=== PATIENT | female | born 1955 | race Caucasian/White ===

== ENCOUNTER → 2017-12-29 12:55 | Outpatient (CLI) | payer OTHER, SELFPAY ==
[2017-11-16 06:51] VITALS: BMI 25.0
--- NOTE | 2017-12-29 12:56 | HPBI_ITS ---
MAMMOGRAPHY - BILATERAL SCREENING REASON FOR EXAM: Female, 62 years old. Routine annual screening examination. PERTINENT HISTORY: Grandmother with breast cancer. Remote left stereotactic breast biopsy. TECHNIQUE: Digital bilateral breast ankur (3D mammographic acquisition) in the CC and MLO projections. 2-D mediolateral oblique (MLO) and craniocaudad (CC) views of both breasts were obtained. CAD: Full Field Digital Mammography with Computer Added Detection was performed. COMPARISON: Comparison is made with prior study dated October 07, 2016 and July 29, 2015. FINDINGS: Breast Composition: The breasts are heterogeneously dense, which may obscure small masses. There are no dominant masses or suspicious calcifications. A tissue clip marker from prior stereotactic biopsy is seen in the upper deep lateral portion of the left breast. No other significant abnormalities are identified. There has been no significant change since the prior study. HPBI/SCREENING MAMM (CAD), BILAT IMPRESSION: Stable bilateral screening mammogram. Yearly follow-up mammogram recommended. (A) ASSESSMENT CATEGORY: BIRADS Category 2: Benign. A letter regarding these results will be sent to the patient by the facility within 30 days. Approximately 10% of breast cancers are not detected by mammography. A normal mammogram should not delay biopsy of a clinically suspicious abnormality. [id number] Electronically Signed: Rafal Dos Santos MD at 15:24 EST Tel [phone], Service support ,
== END ==
PROVIDERS: Family Provider Family Medicine; PCP Family Medicine; Visit Provider Family Medicine
DX: Z12.31 Encounter for screening mammogram for malignant neoplasm of breast (principal); Z80.3 Family history of malignant neoplasm of breast
CPT/HCPCS: 77063; 77067

== ENCOUNTER → 2018-03-07 18:54 | Outpatient (CLI) | payer OTHER, SELFPAY | PROVIDERS: Family Provider Family Medicine; PCP Family Medicine; Visit Provider Obstetrics & Gynecology | DX: Z12.4 Encounter for screening for malignant neoplasm of cervix (principal) | CPT/HCPCS: 88175; G0145 ==

== ENCOUNTER 2018-07-07 05:38 | Day surgery (SDC) | payer OTHER, SELFPAY ==
[2018-07-07] VITALS (7 sets, daily range): BP systolic 100–140; BP diastolic 63–122; PULSE 53–59; RESP 14–16; TEMP 36.7–36.8; O2SAT 92–100; BMI 21.6
--- NOTE | 2018-07-07 06:00 | PCM.HP.STD ---
Problem List (1) Screening for intestinal cancer Status: Acute History of Present Illness Date of Admission: 07/07/18 The patient is a 62 year old F who presents for a screening colonoscopy. I the opportunity to see her in the office on March 14, 2018. She enjoys a very healthy lifestyle. She placed tenderness avidly. That appointment was discussed a screening colonoscopy. She does have symptomatic hemorrhoids. She also is in need of a hysterectomy by Dr. Patricia Blackman. There was some thoughts about possibly combining those procedures. The patient otherwise has had a very healthy summer. Her hemorrhoids remain consistent. She denies any acute medical problems. Past Medical History Past Medical History (Chronic Problems): Chronic Problems (Last Reviewed 03/07/18 @ 14:26 by Diana Baugh) Hemorrhoid (Chronic) consult with dr obrien for possible removal Cystocele (Chronic) plan tvh bs cystoscopy anterior repair mccalls culdoplasty in august Medical History: Medical History (Last Reviewed 03/07/18 @ 14:26 by Diana Baugh) Screening for intestinal cancer (Acute) Z12.10 Allergies No Known Allergies Allergy (Verified 03/14/18 15:06) Home Medications: Ambulatory Orders Medication Instructions Recorded ascorbic acid (vitamin C) 500 mg 500 mg PO QDAY 03/07/18 chewable tablet cholecalciferol (vitamin D3) 2,000 2,000 unit PO QDAY 03/07/18 unit capsule Surgical History: Surgical History (This Medical Record has been edited. Action required.) S/P bunionectomy Z98.890 bilateral stereotactic biopsy left breast Smoking Status: Never smoker Review of Systems Constitutional: Denies: Anorexia Eyes: Denies: Blurred vision Cardiovascular: Denies: Chest Pain Respiratory: Denies: Cough Gastrointestinal: Denies: Abdominal Pain Endocrine: Denies: Change in Body Habitus VTE Information - Inpt Only VTE Present on Admission: No - Physical Exam General: Alert, Oriented x3, Cooperative, No apparent distress HEENT: Atraumatic Oral: Moist Mucosa Neck: Supple Lungs: Clear to auscultation Cardiovascular: Regular rate, Regular Rhythm Abdomen: Bowel Sounds Present, Soft, Non Tender Extremities: No Calf Tenderness Skin: No rashes Psych/Mental Status: Normal Affect Assessment/Plan All Active Problems (Last Reviewed 03/07/18 @ 14:26 by Diana Baugh) Screening for intestinal cancer (Acute) Pharyngitis (Acute) I am proposing for the patient a screening colonoscopy. She denies personal or family history of colon cancer. Approximately 1 year ago cold guard test was negative. She has never had a previous colonoscopy. We will proceed with colonoscopy with possible biopsy or polypectomy is indicated. She is aware of the technique, benefits, risks, alternatives. No guarantees of success have been offered. The patient may then elect future treatment of her hemorrhoids. It is anticipated she will also be a future candidate for hysterectomy. Combining those 2 procedures simultaneously may be more surgery than what she may actually will tolerate. She is not considering any intervention until early 2019. Russell Obrien M.D., F.A.C.S.
--- NOTE | 2018-07-07 06:30 | COLBX_PTH ---
PATIENT: HERMILO HE LOC: EN U#:[id number] AGE/SX: 62/F ROOM: RE07/07/[address]: Dr. Russell Najera MD : [id number] BED: DIS: 07/07/2018 SPEC #: [id number] RECD: 07/07/18 12:23 STATUS: DENIS LAURA #: [id number] JOHN: 07/07/18 06:[address]: Russell Najera DEPT: SURGICAL PATHOLOGY RECD BY: Tyshawn Jimenez ENTERED: 07/07/18 14:03 SP TYPE: COLON BX OTHR DR: Dr. Kerry Francois, DO Tissues: SPLENIC FLEXURE Procedures: Surgery Specimen Level IV HEADER OPERATION: Colonoscopy PRE-OP DIAGNOSIS: Screening TISSUE SUBMITTED: Cold snare polypectomy of polyp splenic flexure MICROSCOPIC DIAGNOSIS Colonic polyp at splenic flexure, biopsy: Fragments of tubular adenoma. AM:darnell 07/10/18 MICROSCOPIC DESCRIPTION Slides are reviewed. GROSS DESCRIPTION Received in fixative is one container labeled with the patient's name and designated biopsy polyp splenic flexure. The specimen consists of a piece of brown-pink soft tissue measuring 0.5 x 0.3 x 0.1 cm. Also present in the container is one piece of brown soft tissue measuring 0.1 cm in greatest dimension. The entire specimen is submitted in one cassette. / SJ:rg 07/07/18 TC:5 CPT: 71805
--- NOTE | 2018-07-07 06:52 | PCM.OPRPT ---
Problem List (1) Screening for intestinal cancer Status: Acute Report of Operation Date of Procedure: 07/07/18 Pre-Operative Diagnosis: Screening for intestinal cancer Post-Operative Diagnosis: Sessile polyp of the splenic flexure. Sigmoid diverticulosis. Grade 2-3 internal hemorrhoids Surgery/Procedure Performed:: Colonoscopy with cold forcep and cold snare biopsy and polypectomy Description of Surgical Findings:: Timeout and informed consent was obtained. 62-year-old female was taken to the endoscopy suite. She was placed in a left lateral decubitus position. Throughout the procedure he received a total 100 mg Demerol and 5 mg of Versed is intravenous sedation. Digital rectal exam performed. Moderate 2-3 grade internal hemorrhoids noted. No mass lesions. No active bleeding. A much lesser degree of an external component of the hemorrhoids. Flexible colonoscope inserted the rectum advanced through a very long lax tortuous sigmoid colon and tortuous colon. The entire procedure was tedious due to the laxity of the bowel length of the bowel and tortuosity. The scope was gradually advanced to the hepatic flexure and then with transabdominal pressure was advanced to the cecum. Bowel prep was good. The cecum ileocecal valve area was achieved. The scope was carefully withdrawn from the ascending colon transverse colon. At the hepatic flexure and sessile 8 mm diameter polyp was identified. I initially tried to sample it with cold forceps but could not get the right view. I then was able to use a cold snare and resect and retrieve the polyp. Hemostasis was intact. The scope was further withdrawn through the tortuous sigmoid colon notable for diverticulosis but no evidence of acute inflammation. The scope was withdrawn to the rectum retroflexed and the internal hemorrhoidal changes noted but no active bleeding. Excess fluid and air was aspirated free the procedure was completed she tolerated it well. Impression Sessile polyp in the splenic flexure Sigmoid diverticulosis Grade 2-3 internal hemorrhoids The patient has never had a previous colonoscopy. Next colonoscopy approximately 3 years pending pathology. The patient may desire to have treatment of her hemorrhoids in the future. Consideration would be for either a PPH hemorrhoidal pexy versus a surgical hemorrhoidectomy. Majority of her hemorrhoids are internal. Cc: Dr. Francois The procedure was initiated at 0624. The cecum was reached at 0636. The procedure was completed at 0649. Russell Najera M.D., F.A.C.S. Type of Anesthesia:: IV Sedation
== END 2018-07-07 07:55 | disposition home or self-care (01) ==
LOC: EN 05:39 → AC 05:40
PROVIDERS: Family Provider Family Medicine; PCP Family Medicine; Visit Provider Surgery
PROC: 0DJD8ZZ Inspection of Lower Intestinal Tract, Via Natural or Artificial Opening Endoscopic (ICD-10-PCS; CPT 45378; principal; 2018-07-07 06:25)
DX: Z12.11 Encounter for screening for malignant neoplasm of colon (principal); D12.3 Benign neoplasm of transverse colon; K57.30 Diverticulosis of large intestine without perforation or abscess without bleeding; K64.4 Residual hemorrhoidal skin tags; K64.8 Other hemorrhoids; N81.10 Cystocele, unspecified; J02.9 Acute pharyngitis, unspecified
CPT/HCPCS: 45385; 88305; 99152; 99153; J7120

== ENCOUNTER → 2018-09-25 09:37 | Outpatient (CLI) | payer OTHER, SELFPAY | PROVIDERS: Family Provider Family Medicine; PCP Family Medicine; Referring Provider Obstetrics & Gynecology; Visit Provider Obstetrics & Gynecology | DX: R30.0 Dysuria (principal) | CPT/HCPCS: 87086; 87088 ==

== ENCOUNTER → 2018-10-13 09:11 | Outpatient (CLI) | payer OTHER, SELFPAY ==
[2018-07-07 06:04] VITALS: BMI 21.6
[2018-10-13 09:41] LABS: Color, Urine Yellow (Yellow); Glucose, Dipstick Normal (Normal); Ketone-Dipstick Negative (Negative); Leukocyte Esterase-Dipstick 25 /ul (Negative); Nitrite-Dipstick Negative (Negative); Occult Blood-Urine Negative /ul (Negative); Protein-Dipstick Negative (Negative); Specific Gravity, Urine 1.005 (1.002-1.030); Urine Bilirubin Dipstick Negative (Negative); Urine Clarity Clear (Clear); Urine Urobilinogen Normal (Normal)
== END ==
PROVIDERS: Family Provider Family Medicine; PCP Family Medicine; Referring Provider Nurse Practitioner Women's Health; Visit Provider Nurse Practitioner Women's Health
DX: R30.0 Dysuria (principal)
CPT/HCPCS: 81002; 87086

== ENCOUNTER → 2019-01-09 14:20 | Outpatient (CLI) | payer OTHER, SELFPAY ==
[2018-07-07 06:04] VITALS: BMI 21.6
--- NOTE | 2019-01-09 14:22 | BI_ITS ---
MAMMOGRAPHY - BILATERAL SCREENING REASON FOR EXAM: Female, 63 years old. Routine annual screening examination. PERTINENT HISTORY: Grandmother with breast cancer. Prior left stereotactic breast biopsy. TECHNIQUE: Digital bilateral breast ankur (3D mammographic acquisition) in the CC and MLO projections. 2-D mediolateral oblique (MLO) and craniocaudad (CC) views of both breasts were obtained. CAD: Full Field Digital Mammography with Computer Added Detection was performed. COMPARISON: Comparison is made with prior study dated December 29, 2017 and October 07, 2016. FINDINGS: Breast Composition: The breasts are heterogeneously dense, which may obscure small masses. There are no dominant masses or suspicious calcifications. A tissue clip marker is once again seen in the deep upper lateral aspect of the left breast. No other significant abnormalities are identified. There has been no significant change since the prior study. BI/SCREENING MAMM (CAD), BILAT IMPRESSION: Stable bilateral screening mammogram. Yearly follow-up mammogram recommended. (A) ASSESSMENT CATEGORY: BIRADS Category 1: Negative. A letter regarding these results will be sent to the patient by the facility within 30 days. Approximately 10% of breast cancers are not detected by mammography. A normal mammogram should not delay biopsy of a clinically suspicious abnormality. [id number] Electronically Signed: Rafal Dos Santos MD at 15:35 EST , Service support ,
== END ==
PROVIDERS: Family Provider Family Medicine; PCP Family Medicine; Referring Provider Family Medicine; Visit Provider Family Medicine
DX: Z12.31 Encounter for screening mammogram for malignant neoplasm of breast (principal)
CPT/HCPCS: 77063; 77067

== ENCOUNTER → 2019-08-23 10:23 | Outpatient (CLI) | payer OTHER, SELFPAY ==
[2019-02-13 13:15] VITALS: BMI 21.6
--- NOTE | 2019-08-23 10:35 | RAD_ITS ---
STUDY: X-RAY - RIGHT SHOULDER REASON FOR EXAM: Female, 64 years old. Shoulder pain TECHNIQUE: 4 view(s) of the shoulder. COMPARISON: None. FINDINGS: Normal glenohumeral articulation. Normal acromioclavicular joint. Normal acromion. Normal humeral head and visualized proximal humerus. The soft tissue structures are unremarkable. Normal visualized pulmonary apex. RAD/Shoulder min 2 Views IMPRESSION: Normal x-ray examination of the shoulder. Electronically Signed: Rush Urbina MD at 17:01 EDT , Service support ,
== END ==
PROVIDERS: Family Provider Family Medicine; PCP Family Medicine; Referring Provider Family Medicine; Visit Provider Family Medicine
DX: M25.511 Pain in right shoulder (principal)
CPT/HCPCS: 73030

== ENCOUNTER 2019-10-02 15:49 | Outpatient (RCR) | payer OTHER, SELFPAY ==
[2019-08-24 13:50] VITALS: BMI 21.6
--- NOTE | 2019-11-22 11:25 | HP.PTEVAL ---
Patient's Visit Information HERMILO HE is a 64 year old F referred to Physical Therapy by Kerry Francois DO with a diagnosis of R shoulder Pain. Date of Evaluation: 10/02/19 Physical Therapist: Isa Dominique DPT - Visit Plan Plan: 10/02/19 Pt. perform HEP I & return if issues. HEP: scapular retractions, B ER, SL ER, Serratus Presses, Mid-Row - Subjective Findings: R shoulder pain - stopped playing tennis for 4 weeks, returned to tennis and after returning to play first session had pain following. Pain begain 4/5 weeks ago, originally felt sore & she slept on it wrong. Hurts with overhead motion or behind the head. Describes pain as radiating. Pain stays around the deltoind but will radiate down to upper arm at times. Worst: 2/10 Aggravting: Getting dress, blowdrying hair, carrying heavy items, OH motions. Best: 0/10 Eases: resting, keeping arm not OH. Misael disruption of sleep (can't sleep on R side). 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 Typical Activities: Tennis, Walking, Ellipitical, Lifting (UE/LE). Exercise: Extensive home gym in basement, lifting 3x/week prior to innjury, cardio everyday. Plays tennis 1x/week 2 hours - high level competition, doubles. PMH/MEds: no significant concerns. R hand dominant. 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 Gait: No deviations noted, good arm swing & trunk rot. Finger Dexterity: WNL. ROM: Wrist/ELbow WNL, Shoulder WNL (pain at end-range abd.). Strength: Eyelet Cutter: Equal, Elbow: 5/5, Shoulder 4/5 (slight pain w/ flex and 90 degree ER) Scap: fair minus. Special Tests: Shoulder Instability & Relocation (positive), ER Lag (positive), Yergasons (-), Rapp-Gavin (-), Speeds (positive), Biceps Load (positive), Empty/Full Can (-) - Goals Goal 1:: Pt. will be I w/ HEP & progression Goal Time Frame: 4-6 Weeks - Rehabilitation Potential Physical Therapy Diagnosis: Presents w/ hypomobility, UE/scap weakness, and pain which leads to difficulty performing ADLs. Rehabilitation Potential: Good - Anticipated Interventions Thank you for the opportunity to evaluate your patient. For Medicare and Medicare HMO plans, please review the plan of care and approve it. It will need to be FAXED BACK to us at [phone] for Medicare purposes. For Medicare only, by signing this I certify the plan of care. Please let me know if there are questions or concerns regarding this plan of care. Physician Signature: Date:
--- NOTE | 2020-04-08 11:52 | HP.PT.NRP ---
HERMILO HE was seen in my office for initial evaluation on 10/02/19. The following Plan of Care was established for this patient: This patient was last seen in our office . Pertinent comments regarding their Physical therapy will appear below: Patient has not attended PT for over 8 weeks- appropriate to be d/c at this time and follow up with MD as needed. At this point I will be discontinuing this patient from physical therapy. I would be happy to see this patient again in the future if found appropriate by the physician. Thank you! Isa Dominique, RAKANT
== END 2019-10-02 19:00 | disposition home or self-care (01) ==
LOC: PT 15:49
PROVIDERS: Family Provider Family Medicine; PCP Family Medicine; Referring Provider Family Medicine; Visit Provider Family Medicine
DX: M25.511 Pain in right shoulder (principal)
CPT/HCPCS: 97110; 97161

== ENCOUNTER → 2020-02-05 13:16 | Outpatient (CLI) | payer OTHER, SELFPAY ==
[2019-08-24 13:50] VITALS: BMI 21.6
--- NOTE | 2020-02-05 13:19 | BI_ITS ---
MAMMOGRAPHY - BILATERAL SCREENING REASON FOR EXAM: Female, 64 years old. Routine annual screening examination. PERTINENT HISTORY: Grandmother with breast cancer. Remote left stereotactic breast biopsy. TECHNIQUE: Digital bilateral breast arti (3D mammographic acquisition) in the CC and MLO projections. 2-D mediolateral oblique (MLO) and craniocaudad (CC) views of both breasts were obtained. CAD: Full Field Digital Mammography with Computer Added Detection was performed. COMPARISON: Comparison is made with prior study dated January 09, 2019 and December 29, 2017. FINDINGS: Breast Composition: The breasts are heterogeneously dense, which may obscure small masses. There are no dominant masses or suspicious calcifications. A tissue clip marker from prior stereotactic breast biopsy is once again seen in the deep upper lateral aspect of the left breast. No other significant abnormalities are identified. There has been no significant change since the prior study. BI/SCREEN MAMM (CAD) W/ARTI BILAT IMPRESSION: Stable bilateral screening mammogram. Yearly follow-up mammogram recommended. (A) ASSESSMENT CATEGORY: BIRADS Category 2: Benign. A letter regarding these results will be sent to the patient by the facility within 30 days. Approximately 10% of breast cancers are not detected by mammography. A normal mammogram should not delay biopsy of a clinically suspicious abnormality. [id number] Electronically Signed: Rafal Dos Santos, at 14:07 EDT , Service support ,
== END ==
PROVIDERS: Family Provider Family Medicine; PCP Family Medicine; Referring Provider Family Medicine; Visit Provider Family Medicine
DX: Z12.31 Encounter for screening mammogram for malignant neoplasm of breast (principal)
CPT/HCPCS: 77063; 77067

== ENCOUNTER → 2020-04-10 06:20 | Outpatient (CLI) | payer OTHER, SELFPAY ==
[2019-08-24 13:50] VITALS: BMI 21.6
[2020-04-10 08:32] LABS: Vitamin D,25 Hydroxy 33.6 ng/mL
--- NOTE | 2020-04-10 09:25 | BD_ITS ---
STUDY: DUAL ENERGY X-RAY ABSORPTIOMETRY / DXA REASON FOR EXAM: Female, 64 years old. Age of carlo 50. Pat is 143.5 and 64.75 and quot; a loss of 1-1.5 and quot; per pat. Exercises a lot. TECHNIQUE: Bone Mineral Density (BMD) measurements of lumbar spine and bilateral hips were obtained. COMPARISON: Comparison is made with prior examination dated July 29, 2015. FINDINGS: Lumbar Spine (L1-L4): g/cm2 (1.138) / T-score (-0.3) / Z-score (1.2) Findings are suggestive of normal bone density with a low fracture risk. Left Femur Total: g/cm2 (1.023) / T-score (0.1) / Z-score (1.3) Left Femoral Neck: g/cm2 (0.954) / T-score (-0.6) / Z-score (0.9) Right Femur Total: g/cm2 (0.996) / T-score (-0.1) / Z-score (1.1) Right Femoral Neck: g/cm2 (0.914) / T-score (-0.9) / Z-score (0.6) The T-Scores on the most recent prior examination were: Lumbar Spine (L1-L4): There has been worsening of bone density since the previous examination. Left Femur Total: which represents a worsening of 6.3%. Right Femur Total: which represents a worsening of 8.3%. BD/Dexa Bone Density Study IMPRESSION: The patient is considered normal as outlined below according to World [employer] Organization (WHO) criteria with a low fracture risk. There has been worsening of bone density since the previous examination. Reference Information: The T-score is the number of standard deviations above or below the standard which is normal for young adults at their peak bone mineral density. The World Health Organization (WHO) interprets the T-scores as follows: Above -1 Normal bone density Between -1 and -2.5 Osteopenia Equal to / or below -2.5 Osteoporosis As a practical clinical guideline, osteopenia may be graded as follows: Mild -1 through -1.5 Moderate -1.6 through -2.0 Severe -2.1 through -2.4 The Z-score is the number of standard deviations above or below age-matched controls. A Z-score of less than -1.5 would be considered abnormal. References: 1. NIH Osteoporosis and Related Bone Diseases http://www.osteo.org 2. International Society for Clinical Densitometry http://www.iscd.org 3. National Osteoporosis Foundation http://www.nof.org Electronically Signed: Rafal Dos Santos, at 10:12 EDT , Service support ,
== END ==
PROVIDERS: PCP Internal Medicine; Referring Provider Internal Medicine; Visit Provider Internal Medicine
DX: Z78.0 Asymptomatic menopausal state (principal); E55.9 Vitamin D deficiency, unspecified
CPT/HCPCS: 36415; 77080; 82306

== ENCOUNTER 2020-09-09 05:23 | Day surgery (SDC) | payer OTHER, SELFPAY ==
[2020-04-22 13:45] VITALS: BMI 21.6
[2020-08-26 13:03] VITALS: BMI 21.6
--- NOTE | 2020-09-03 07:13 | EKG12_ITS ---
Test Reason : PREOP Blood Pressure : / mmHG Vent. Rate : 057 BPM Atrial Rate : 057 BPM P-R Int : 166 ms QRS Dur : 082 ms QT Int : 412 ms P-R-T Axes : 042 049 033 degrees QTc Int : 401 ms Sinus bradycardia Otherwise normal ECG Confirmed by LAUREN SEVERINO, PAPITO ([id number]), online editor LATASHA BRITTON ([id number]) on 09/04/2020 10:08:46 AM Referred By: Patricia Blackman Confirmed By:PAPITO AGUILAR MD
[2020-09-03 12:32] LABS: Hematocrit 39.2 % (37-47); Mean Corp Hgb Conc 33.2 g/dL (32-36); Mean Corpuscular Hgb 30.9 pg (27.0-32.0); Mean Corpuscular Volume 93.1 fL (81-99); Mean Platelet Vol. 9.2 fl (6.2-12.0); Platelet Count 214 K/mm3 (150-450); RBC Distribution Width CV 12.9 % (11.6-14.6); RBC Distribution Width SD 43.9 fl (35.1-43.9); Red Blood Count 4.21 M/mm3 (4.2-5.4); White Blood Count 3.9 K/mm3 (4.4-11.0)
[2020-09-03 12:40] LABS: Partial Thromboplast Time 22.3 Seconds (24.1-36.2); Prothrombin Time (Protime)PT. 12.3 SECONDS (11.7-14.9)
[2020-09-03 12:54] LABS: AST(SGOT) 25 U/L (15-37); Alanine Aminotransfer ALT/SGPT 30 U/L (13-56); Albumin, Serum 4.1 g/dL (3.2-5.0); Alkaline Phosphatase 47 U/L (45-117); Bilirubin, Direct 0.13 mg/dL (0.00-0.30); Globulin 3.5 g/dL (2.2-4.2); Protein, Total 7.6 g/dL (6.4-8.2)
[2020-09-09] VITALS (12 sets, daily range): BP systolic 99–133; BP diastolic 61–85; PULSE 56–78; RESP 12–20; TEMP 36.4–36.9; O2SAT 92–98; BMI 24.0
[2020-09-09] MEDS: Acetaminophen 500 MG Tablet 1000 MG PO ×3 (06:24→17:54)
[2020-09-09] MEDS: Celecoxib 200 MG Capsule 400 MG PO (06:24)
[2020-09-09] MEDS: dexAMETHasone 10 MG/ML Vial 8 MG IV (06:25)
[2020-09-09] MEDS: Enoxaparin 40 MG/0.4 ML Syringe SC (06:25)
[2020-09-09] MEDS: Gabapentin 600 MG Tablet PO (06:36)
[2020-09-09] MEDS: Lactated Ringers 1,000 ML 40 ML IV (06:37)
--- NOTE | 2020-09-09 06:45 | HP.PCM_ITS ---
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 Required: No Is patient in pain?: No Allergies No Known Allergies Allergy (Verified 08/26/20 13:03) Medications cholecalciferol (vitamin D3) 50 mcg (2,000 unit) capsule 2,000 unit PO QDAY 03/07/18 [History Confirmed 08/26/20] Is last menstrual period known: No Post menopausal: Yes Patient : No : No [facility] Medical History Hemorrhoid (Chronic) Cystocele (Chronic) Surgical History History of colonoscopy (Acute ~2018) S/P bunionectomy (Resolved) stereotactic biopsy (Resolved) Family History Grandmother Breast cancer Mother Hypertension COPD (chronic obstructive pulmonary disease) Social History (Updated 08/26/20 @ 13:[address] 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 she is going to have a combo case with Dr diaz. Female Reproductive History Questions: Metorrhagia: No, Sexually active: Yes, Dyspareunia: No, PCB: No Menopausal Symptoms: No night sweats Pregancy History 2 Elective abortions Hx Para 2 Spontaneous abortions Hx # Term Pregnancies Ectopic pregnancies Hx # Pregnancies Multiple births # of living children Past Pregnancies Del. Date Name GA/Weeks Outcome Route Bth Weight [facility] Katie-[facility] Unknown Nida-1971 Unknown Unknown Delivery Date: No notes to display Delivery Date: No notes to display Delivery Date: No notes to display Delivery Date: On 03/07/18 @ 14:31 Diana Baugh Giacomo (step-daughter) ROS Const Constitutional: Denies fatigue, night sweats, weight gain or weight loss ENT ENT: Reports system reviewed and no additional complaints, except as docu Cardio Card: Denies chest pain Resp Resp: Denies cough or dyspnea GI GI: Reports as per HPI; denies abdominal pain, constipation, nausea or vomiting : Denies nipple discharge, urinary frequency, urinary incontinence, urinary hesitancy, urinary urgency, vaginal discharge, vaginal dryness, vaginal odor or vaginal itching Musc Musc: Denies joint pain, back pain or muscle weakness Skin Skin/Breast: Denies hair loss, change in hair, dry skin, breast lump, breast pain, breast skin changes or nipple discharge Neuro Neuro: Reports system reviewed and no additional complaints, except as docu Psych Psych: Reports system reviewed and no additional complaints, except as docu Endo Endo: Denies cold intolerance, excessive sweating, heat intolerance or increased thirst Edgar/Lymph Hematologic/Lymphatic: Denies easy bleeding, Denies easy bruising, Denies enlarged lymph nodes Exam Const General: cooperative, healthy appearing, comfortable, no acute distress, well de veloped Orientation: alert [facility] Head: normal to inspection, normocephalic Ears: hearing grossly normal bilaterally, external ears normal Nose: external nose normal, nares normal Face and sinus: normal facial exam Neck Neck: normal visual inspection, no lymphadenopathy Thyroid: thyroid normal Chest Chest palpation & inspection: normal inspection of the chest Resp Effort & Inspection: normal respiratory effort Auscultation: clear to auscultation bilaterally Cardio Rate: regular rate Rhythm: regular rhythm Heart Sounds: S1 normal, S2 normal GI Inspection: normal to inspection, non-distended Palpation: soft, no hepatosplenomegaly Musc Other: gross motor intact no deficits, full bilateral strength Skin General: no rashes or lesions noted Neuro General: alert, awake, moves all extremities, no focal motor deficits Motor: muscle tone normal throughout Extrem General: normal to inspection, no pedal edema Psych Appearance: grossly normal Mental Status: mental status grossly normal Affect: normal affect Speech and Movement: speech and movement normal Assessment & Plan Problems 1. Cystocele plan [facility] bso combo case with joe Salvador After discussing the patient's diagnosis and treatment plan options, patient wishes to proceed with surgical management. I have discussed with the patient the risks, benefits, and alternatives of the procedure which include but are not limited to risks of anesthesia, bleeding, infection, possible damage to bowel, bladder, or surrounding vasculature which could lead to additional surgery to evaluate any complications. Patient agrees to procedure and wishes to proceed. ACOG/uptodate references given for additional information regarding procedure. Coding Level of Care Code No Charge Diagnoses Cystocele UPDATE- I have seen the patient and performed any clinically relevant updates to the history and physical exam. Patricia Blackman MD
[2020-09-09] MEDS: Cefazolin 2 GM in 0.9% Normal Saline 100 ML IV (07:29)
--- NOTE | 2020-09-09 07:30 | OP.PCM_ITS ---
Problem List (1) Cystocele Status: Chronic Qualifiers: Comment: plan tvh bso combo case with joe (2) Hemorrhoid Status: Chronic Qualifiers: Comment: consult with dr obrien for possible removal Report of Operation Date of Procedure: 09/09/20 Pre-Operative Diagnosis: prolapse Post-Operative Diagnosis: same Surgery/Procedure Performed:: tvh bso Description of Surgical Findings:: nl uterus tubes ovaries curriculum and assessment coordinator: Beena Corral Type of Anesthesia:: General Special Medications: none Specimen's removed: uterus tubes ovaries Drains: none Estimated Blood Loss (mL): 150 Fluids Replaced: crystalloid Description of Procedure: Patient was taken to the operating room and was placed under general anesthesia was prepped and draped in normal sterile fashion in the dorsal lithotomy position. Preoperative antibiotics and SCDs and Keyes catheter was placed inside the bladder. Weighted speculum was placed in the vagina and the anterior and posterior lip of the cervix was grasped with 2 Rosemarie clamps and circumferentially injected with dilute vasopressin. A circumferential incision was made with a scalpel and the posterior cul-de-sac was entered into sharply and a longneck speculum was placed. The anterior cul-de-sac was also dissected down and entered into sharply and the uterosacral ligaments were clamped cut and suture ligated bilaterally followed by the cardinal ligaments which were Clamped cut and suture ligated bilaterally with 0 Monocryl. The uterus serially descended and progressive bites were taken bilaterally up to the level of the utero-ovarian ligament bilaterally which was clamped transected and double ligated with 0 Monocryl suture and 0 Vicryl free tie. Bilateral fallopian tubes and ovaries were well visualized and noted be within normal limits and the bilateral fallopian tubes and ovaries were then clamped, transected across the base of the IP ligament with a Evan clamp and removed and double ligated with 0 monocryl suture and an 0 vicryl free tie. There was some difficulty accessing the right pelvic side wall due to visualization but overall the majority if not all of the ovary was removed. addition sutures were place over the pelvic side constantino bilaterally to obtain hemostasis and after this Excellent hemostasis was noted. Posterior peritoneum and the vagina were closed with [id number] 0 Vicryl pop offs including the posterior and what anterior peritoneum was visible in the reapproximation. Excellent hemostasis was noted. All instruments removed from the vagina clear urine was noted at the end of the procedure and dr diaz began her portion of the procedure. Grafts/Implants Used: see joe note Multi Select Codes - Urinary/Genital Urinary/Genital CPT Codes: 89210 TVH+BS/O <250gr uterus
--- NOTE | 2020-09-09 07:30 | HYST_PTH ---
PATIENT: HERMILO HE LOC: [facility] [place] U#:[id number] AGE/SX: 65/F ROOM: RE09/09/[address]: Dr. Patricia Blackman MD : [id number] BED: DIS: 09/10/2020 SPEC #: [id number] RECD: 09/09/20 13:12 STATUS: DENIS REJarrod #: [id number] JOHN: 09/09/20 07:[address]: Patricia Blackman DEPT: SURGICAL PATHOLOGY RECD BY: Anil Farrell ENTERED: 09/10/20 07:05 SP TYPE: HYSTERECT OTHR DR: MD Dr. Dee Patino DO Tissues: Uterus, NOS Procedures: Surgery Specimen Level V HEADER OPERATION: ERAS, total vaginal hysterectomy, bilateral salpingo-oophorectomy PRE-OP DIAGNOSIS: Incomplete uterovaginal prolapse, postmenopausal atrophic vaginitis TISSUE SUBMITTED: Uterus, cervix, bilateral fallopian tubes and ovaries MICROSCOPIC DIAGNOSIS Uterus, cervix, bilateral fallopian tubes and ovaries, vaginal hysterectomy and bilateral salpingo-oophorectomy: Cervix - mild chronic inflammation. - Benign endocervical polyp (1 cm in greatest dimension). Endometrium - proliferative endometrium. Myometrium - focal adenomyosis. One fallopian tube - focal endometriosis. Second fallopian tube - no pathologic diagnosis. One ovary - benign simple serous cyst (1 cm in greatest dimension). - mesothelial inclusion cysts. Second ovary - mesothelial inclusion cysts. JOYCE:darnell 09/11/20 MICROSCOPIC DESCRIPTION Slides are reviewed. GROSS DESCRIPTION Received in fixative is one container labeled with the patient's name and designated uterus, cervix, bilateral fallopian tubes and bilateral ovaries. The specimen consists of a hysterectomy specimen consisting of uterus with cervix, detached fallopian tube and adjacent ovary and detached second fallopian tube and detached second ovary. The fallopian tubes and ovaries are not identified as right or left. The uterus with cervix weighs 56 gm and measures 8 x 4.5 x 3 cm. The serosal surface is focally ragged. The ectocervical mucosa is unremarkable. The external os is oval in contour. The endocervical canal measures 3 cm in length and the endocervical mucosa is shows a polyp measuring 1 x 0.5 x 0.1 cm at the level of internal os. The triangular endometrial cavity measures 3.5 cm in length and up to 1.5 cm in width. The endometrium is brown, glistening without any mass lesion and measures 0.1 cm in thickness. Sections of the uterine wall do not reveal any mass lesion and is 1.5 cm in thickness. One fallopian tube measures 4 cm in length and 0.5 cm in diameter. It is interrupted in the middle consistent with previous tubal occlusion. The distal fimbrial end is not seen. The adjacent ovary measures 2.5 x 1 x 0.5 cm. Sections reveal unremarkable cut surfaces. The detached second fallopian tube measures 2 cm in length and 0.6 cm in diameter. The fimbrial end is identified. Sections reveal unremarkable cut surfaces. The detached second ovary measures 3 x 1 x 1 cm. Sections reveal a cyst filled with clear fluid measuring 1?cm in greatest dimension. No papillations are identified. Occupational Health Rn sections are submitted in ten cassettes as follows: 1 - anterior cervix, endocervical polyp, entirely submitted, 2 - posterior cervix, 3 & 4 - anterior uterine wall, 5 & 6 - posterior uterine wall, 7 & 8 - one fallopian tube and adjacent ovary (7??one fallopian tube, 8 - ovary, entirely submitted), 9 - second detached fallopian tube, 10 - second detached ovary, entirely submitted. / JOYCE:darnell 09/10/20 TC:5 CPT: 51988
[2020-09-09 07:42] LABS: Bedside Glucose 96 mg/dL (70-110)
[2020-09-09] MEDS: Lactated Ringers 1,000 ML 70 ML IV ×2 (10:00→16:03)
[2020-09-09] MEDS: Estrogens,Conj. 1 Tube 1 DOSE (10:15)
--- NOTE | 2020-09-09 10:44 | OP.PCM_ITS ---
Problem List (1) Cystocele Status: Chronic Qualifiers: Comment: plan tvh bso combo case with jermainesteve (2) Uterovaginal prolapse Status: Acute Report of Operation Date of Procedure: 09/09/20 Pre-Operative Diagnosis: Uterovaginal prolapse, postmenopausal vaginal atrophy Post-Operative Diagnosis: Same Surgery/Procedure Performed:: Anterior repair, bilateral sacrospinous ligament fixation with dermis, cystoscopy Type of Anesthesia:: General Estimated Blood Loss (mL): 25cc Description of Procedure: The patient is a 65-year-old female who presented to the office with uterovaginal prolapse. After evaluation with cystoscopy and urodynamics, she decided to proceed with surgical intervention. Informed consent was obtained after discussing all risk benefits and alternatives including that of COVID-19. Patient was taken to the operating room and placed on the operating room table. Anesthesia monitored the head, neck, airway, IV access and vital signs throughout the case. Once anesthesia was appropriately administered, the patient was placed into dorsal lithotomy position and was prepped and draped in usual sterile fashion. The first portion of the case was then performed by Dr. Blackman. After closure of the vaginal cuff, the case was turned to mn. The patient had very thin vaginal mucosa. It was injected submucosally with vasopressin for hydrostatic dissection and hemostatic control. A midline vertical incision was then made approximately 2.5 cm in length. Sharp and blunt dissection was performed on either side until the sacrospinous ligaments were identified and freed from surrounding tissues. This was very difficult as the patient had significant amount of scar tissue in the area surrounding the sacrospinous ligaments bilaterally. Using the Capio, Monodek sutures were passed through the sacrospinous ligaments and through a trimmed piece of dermis. A full-thickness 2-0 Vicryl suture was used to tack the dermis in the midline. 2-0 Vicryl interrupted sutures were placed at the area of the bladder neck as well as the areas of the remaining pubocervical fascia laterally. The dermis lay flat against the bladder. The mucosa was then closed over in the midline using running interlocking 2-0 Vicryl. Because her mucosa was very thin, this was difficult as there were multiple areas of torn mucosa. At the conclusion of the closure of the midline incision, the sacrospinous ligament sutures were tied into position. The prolapse was completely reduced. A cystourethroscopy was performed through the urethra under direct visualization with the 70 degree lens. There were no injuries to the urinary bladder including foreign body or bruising. There were no mucosal abnormalities identified. There was a good ureteral jet observed from the left ureteral orifice. On the right side a 5 Japanese whistle-tip catheter was easily inserted into the urethra up to 25 cm. It was removed and there was no blood and no obstruction. At this time the Keyes catheter was replaced and the vagina was packed with Premarin cream and vaginal packing. The patient was awakened and taken to the recovery room in good condition. There were no complications during the procedure. Grafts/Implants Used: Dermis - Complications none - Admit VTE Documentation VTE Present on Admission: Yes VTE Mechan Device Prophylaxis: SCD's VTE Pharm Prophylaxis ordered?: Yes
[2020-09-09] MEDS: Ondansetron 4 MG/2 ML Vial IV (11:01)
[2020-09-09] MEDS: Ketorolac 30 MG/ML Syringe IV ×2 (13:00→17:55)
[2020-09-09 15:23] LABS: Absolute Lymphocyte Count 0.32 X10^3/uL (0.83-4.51); Absolute Neutrophil Count 9.9 X10^3/uL (2.0-7.7); Basophil# 0.01 X10^3/uL; Basophil% 0.1 % (0-1); Hematocrit 37.4 % (37-47); Lymphocyte # 0.32 X10^3/ul (4.0); Mean Corp Hgb Conc 32.1 g/dL (32-36); Mean Corpuscular Hgb 31.2 pg (27.0-32.0); Mean Corpuscular Volume 97.1 fL (81-99); Monocyte# 0.23 X10^3/uL; Monocyte% 2.2 % (0-10); NRBC Flagged by Analyzer 0 % (0-5); Neutrophil % 94.2 % (47-70); POSITIVE DIFFERENTIAL YES; Platelet Count 193 K/mm3 (150-450); RBC Distribution Width CV 12.8 % (11.6-14.6); RBC Distribution Width SD 45.1 fl (35.1-43.9); Red Blood Count 3.85 M/mm3 (4.2-5.4); White Blood Count 10.5 K/mm3 (4.4-11.0)
[2020-09-09] MEDS: Cephalexin 500 MG Capsule PO ×2 (16:03→22:12)
--- NOTE | 2020-09-09 16:36 | PCM.DC.VHY ---
Discharge Diet: No Restrictions Discharge Activity: Return to Normal Activity, May Not Drive, May Shower May resume sexual activity in: 6-8 weeks Call your doctor if your incision/area has: Continuous Slow Oozing, Sudden Increased Bleeding, Increased Pain/ Swelling, Increased Redness, Foul Smelling Discharge Call your doctor if you observe: Fever of 101 or Higher, Inability to urinate, Inability to have a bowel movement, Using more than one pad per hour Allergies/Adverse Reactions: Allergies No Known Allergies Allergy (Verified 08/26/20 13:03) Medications to take at Discharge cholecalciferol (vitamin D3) 50 mcg (2,000 unit) capsule 2,000 unit PO QDAY 03/07/18 Calcium Carbonate [Elemental Calcium] 600 mg PO DAILY 09/02/20 Naproxen [Naprosyn] 250 - 500 mg PO Q8H PRN PRN #30 tab 09/09/20 Oxycodone HCl/Acetaminophen [Percocet 5-325] 1 - 2 tab PO Q6H PRN PRN 7 Days #15 tab 09/09/20 The following prescriptions were given: Naproxen [Naprosyn] 250 - 500 mg PO Q8H PRN PRN #30 tab PRN Reason: MILD PAIN Transmission Status: Received by [facility] Oxycodone HCl/Acetaminophen [Percocet 5-325] 1 - 2 tab PO Q6H PRN PRN 7 Days #15 tab PRN Reason: Pain Transmission Status: Received by [facility] Primary Care Physician: Dee Alvarez DO [Primary Care Provider] - Test Results: Test results from this visit will be discussed in further detail at your follow-up appointment, if applicable. Please Follow Up With: Patricia Blackman MD - [phone]
[2020-09-09 16:45] LABS: Anisocytosis RARE; Macrocytosis RARE; Platelet Estimate ADEQUATE (ADEQ); Red Cell Morphology N CHROM NORMAL (NORM C&C)
[2020-09-09] MEDS: Docusate Sodium 100 MG Capsule PO (22:12)
[2020-09-10] MEDS: Ketorolac 30 MG/ML Syringe IV ×2 (00:52→06:09)
[2020-09-10] MEDS: Acetaminophen 500 MG Tablet 1000 MG PO ×2 (00:52→06:43)
[2020-09-10] MEDS: 0.9% Saline Lock 10 ML Syringe IV ×2 (00:53→06:09)
[2020-09-10 00:58] VITALS: BP 110/58; PULSE 63; RESP 16; TEMP 36.6; O2SAT 97
[2020-09-10 00:59] VITALS: BMI 24.0
[2020-09-10 04:15] VITALS: BP 101/55; PULSE 61; RESP 18; TEMP 36.9; O2SAT 97; BMI 24.0
[2020-09-10 05:56] LABS: Hematocrit 34.6 % (37-47); Hemoglobin 11.1 g/dL (12.0-15.0); Mean Corp Hgb Conc 32.1 g/dL (32-36); Mean Corpuscular Hgb 30.9 pg (27.0-32.0); Mean Corpuscular Volume 96.4 fL (81-99); Mean Platelet Vol. 9.1 fl (6.2-12.0); Platelet Count 199 K/mm3 (150-450); RBC Distribution Width CV 12.8 % (11.6-14.6); RBC Distribution Width SD 45.1 fl (35.1-43.9); Red Blood Count 3.59 M/mm3 (4.2-5.4); White Blood Count 8.4 K/mm3 (4.4-11.0)
[2020-09-10 06:42] VITALS: O2SAT 97
--- NOTE | 2020-09-10 07:26 | PCM.PN.OB ---
Patient Problems: Active and Suspected Problems (Last Reviewed 08/26/20 @ 13:03 by Diana Baugh) Uterovaginal prolapse (Acute) Subjective: patient recovering well, denies CP, SOB, N, or V. patient is ambulating, voiding ,tolerating adequate po, and pain is controlled with oral medications. - Physical Exam Vitals/I&O's: Vital Signs Temp Pulse Resp BP Pulse Ox 98.4 F 61 18 101/55 L 97 09/10/20 04:15 09/10/20 04:15 09/10/20 04:15 09/10/20 04:15 09/10/20 06:42 Oxygen Flow Rate (L/min) 6 Oxygen Delivery Method Room Air Weight: 144 lb 6.444 oz Body Mass Index (BMI) 24.0 Intake and Output for Last 24 Hours 09/08/20 09/09/20 09/10/20 23:59 23:59 23:59 Intake Total 2214 / 3014 1972.17 / 1972.17 Output Total 475 / 1025 1700 / 1700 Balance 173 / 1988 272.17 / 272.17 General: Alert, Oriented x3 Laboratory Results 09/09/20 06:00: POC Glucose 96 09/09/20 15:08: WBC 10.5, RBC 3.85 L, Hgb 12.0, Hct 37.4, MCV 97.1, MCH 31.2, MCHC 32.1, RDW Std Deviation 45.1 H, RDW Coeff of Juan Carlos 12.8, Plt Count 193, MPV 9.0, Immature Gran % (Auto) 0.500, Neut % (Auto) 94.2 H, Lymph % (Auto) 3.0 L, Union % (Auto) 2.2, Eos % (Auto) 0.0, Baso % (Auto) 0.1, Absolute Neuts (auto) 9.9 H, Absolute Lymphs (auto) 0.32 L, Nucleated RBC % 0, Differential Comment SEE COMMENT, Platelet Estimate ADEQUATE, RBC Morphology N CHROM, Anisocytosis RARE, Macrocytosis RARE 09/10/20 05:33: WBC 8.4, RBC 3.59 L, Hgb 11.1 L, Hct 34.6 L, MCV 96.4, MCH 30.9, MCHC 32.1, RDW Std Deviation 45.1 H, RDW Coeff of Juan Carlos 12.8, Plt Count 199, MPV 9.1 Current Medications Acetaminophen (Acetaminophen 500 Mg Tablet) 1,000 mg PO Q6H [facility] Last Admin: 09/10/20 06:43 Dose: 1,000 mg Documented by: Cephalexin (Cephalexin 500 Mg Capsule) 500 mg PO Q12 [facility] Last Admin: 09/09/20 22:12 Dose: 500 mg Documented by: Docusate Sodium (Docusate Sodium 100 Mg Capsule) 100 mg PO BID [facility] Last Admin: 09/09/20 22:12 Dose: 100 mg Documented by: Enoxaparin Sodium (Enoxaparin 40 Mg/0.4 Ml Syringe) 40 mg SC DAILY [facility] Sodium Chloride () 250 mls @ 15 mls/hr IV .[id number] PRN PRN Reason: Saline Flush Sodium Chloride () 250 mls @ 15 mls/hr IV .[id number] PRN PRN Reason: Additional IVPB Infusion Lactated Ringer's () 1,000 mls @ 70 mls/hr IV .[id number] [facility] Stop: 09/10/20 12:30 Last Infusion: 09/10/20 05:22 Dose: Infused Documented by: Ketorolac Tromethamine (Ketorolac 30 Mg/Ml Syringe) 30 mg IV Q6H [facility] Stop: 09/10/20 18:31 Last Admin: 09/10/20 06:09 Dose: 30 mg Documented by: Magnesium Chloride (Magnesium Chloride 64 Mg Delay Rel.Tablet) 128 mg PO DAILY PRN PRN PRN Reason: Constipation Nutritional Formula (Lactose Free) (Ensure Enlive 120 Ml Liquid) 120 ml PO TIDCM [facility] Ondansetron HCl (Ondansetron Odt 4 Mg Tablet) 4 mg PO Q6H PRN PRN PRN Reason: NAUSEA Oxycodone HCl (Oxycodone 5 Mg Tablet) 5 - 10 mg PO Q4H PRN PRN PRN Reason: Pain Score 4-10 Sodium Chloride (0.9% Saline Lock 10 Ml Syringe) 10 - 40 ml IV UD PRN PRN Reason: SALINE FLUSH Last Admin: 09/10/20 06:09 Dose: 10 ml Documented by: Medical Necessity - Tobacco Use Smoking Status: Never smoker Tobacco Use: Non-smoker Assessment/Plan All Active Problems (Last Reviewed 08/26/20 @ 13:03 by Diana Baugh) Uterovaginal prolapse (Acute) Staph skin infection (Acute) Pharyngitis (Acute) patient is s/p TVH pelvic floor repair POD 1 1. routine ERAS protocol postop care- increase ambulation, encourage oral intake and oral control of pain. lovenox and scds for dvt prophylaxis, patient stable for discharge to home.
[2020-09-10 08:12] VITALS: BMI 24.0
[2020-09-10 09:09] VITALS: BP 119/55; PULSE 54; RESP 18; TEMP 36.6; O2SAT 98
[2020-09-10] MEDS: Cephalexin 500 MG Capsule PO (09:53)
[2020-09-10] MEDS: Enoxaparin 40 MG/0.4 ML Syringe SC (09:53)
[2020-09-10] MEDS: Docusate Sodium 100 MG Capsule PO (09:53)
[2020-09-10 11:08] VITALS: BP 112/68; PULSE 58; RESP 18; TEMP 37.2; O2SAT 98
== END 2020-09-10 11:01 | disposition home or self-care (01) ==
LOC: SDC 05:23 → AC 05:24 → MS3 09-11 07:33
PROVIDERS: Anesthesiology; Urology; PCP Internal Medicine; Referring Provider Obstetrics & Gynecology; Visit Provider Obstetrics & Gynecology
PROC: (CPT 58260; principal; 2020-09-09 07:10)
PROC: (CPT 57260; 2020-09-09 07:10)
DX: N81.4 Uterovaginal prolapse, unspecified (principal); N95.2 Postmenopausal atrophic vaginitis; R39.14 Feeling of incomplete bladder emptying; Z20.818 Contact with and (suspected) exposure to other bacterial communicable diseases; N72 Inflammatory disease of cervix uteri; N84.1 Polyp of cervix uteri; N80.0 Endometriosis of uterus; N80.2 Endometriosis of fallopian tube; N83.299 Other ovarian cyst, unspecified side; N83.202 Unspecified ovarian cyst, left side; N83.201 Unspecified ovarian cyst, right side
CPT/HCPCS: 57240; 57282; 58262; 36415; 80076; 82962; 85025; 85027; 85610; 85730; 86850; 86900; 86901; 87635; 88307; 93005; 99251; C9803; J7120; A4216; C1758; G0463; J2405; U0003

== ENCOUNTER → 2021-01-23 07:49 | Outpatient (CLI) | payer OTHER, SELFPAY ==
[2020-09-23 15:30] VITALS: BMI 23.9
[2021-01-23 09:13] LABS: Absolute Lymphocyte Count 1.21 X10^3/uL (0.83-4.51); Absolute Neutrophil Count 3.7 X10^3/uL (2.0-7.7); Basophil# 0.03 X10^3/uL; Basophil% 0.6 % (0-1); Eosinophils% 1.9 % (0-5); Hematocrit 42.4 % (37-47); Hemoglobin 13.9 g/dL (12.0-15.0); Lymphocyte # 1.21 X10^3/ul (4.0); Lymphocyte % 22.7 % (19-41); Mean Corp Hgb Conc 32.8 g/dL (32-36); Mean Corpuscular Hgb 30.7 pg (27.0-32.0); Mean Corpuscular Volume 93.6 fL (81-99); Mean Platelet Vol. 9.5 fl (6.2-12.0); Monocyte# 0.31 X10^3/uL; Monocyte% 5.8 % (0-10); NRBC Flagged by Analyzer 0 % (0-5); Neutrophil # 3.67 X10^3/uL (2.7-7.7); Neutrophil % 68.8 % (47-70); Platelet Count 196 K/mm3 (150-450); RBC Distribution Width CV 13.1 % (11.6-14.6); RBC Distribution Width SD 44.7 fl (35.1-43.9); Red Blood Count 4.53 M/mm3 (4.2-5.4); White Blood Count 5.3 K/mm3 (4.4-11.0)
[2021-01-23 09:54] LABS: ALB/GLOB Ratio 1.2 RATIO (0.9-2.4); AST(SGOT) 29 U/L (15-37); Alanine Aminotransfer ALT/SGPT 31 U/L (13-56); Albumin, Serum 4.2 g/dL (3.2-5.0); Alkaline Phosphatase 53 U/L (45-117); Anion Gap 7 (5-15); BUN 17 mg/dL (7-18); BUN/Creat Ratio 20.8 RATIO (10-20); Chloride 106 mmol/L (98-107); Creatinine, Serum 0.82 mg/dL (0.55-1.02); EST Glomerular Filtration Rate 74 mL/min (>60); Est Glom Filt Rate - Afr Amer 90 mL/min (>60); Globulin 3.5 g/dL (2.2-4.2); Glucose 87 mg/dL (74-106); Magnesium 2.1 mg/dL (1.6-2.6); Potassium 4.2 mmol/L (3.5-5.1); Protein, Total 7.7 g/dL (6.4-8.2); Sodium Level 138 mmol/L (136-145); Thyroid Stim Hormone (TSH) 1.82 uIU/mL (0.358-3.74)
== END ==
PROVIDERS: PCP Internal Medicine; Referring Provider Internal Medicine; Visit Provider Internal Medicine
DX: M62.838 Other muscle spasm (principal)
CPT/HCPCS: 36415; 80053; 83735; 84443; 85025

== ENCOUNTER → 2021-02-24 08:05 | Outpatient (CLI) | payer OTHER, SELFPAY ==
[2020-09-23 15:30] VITALS: BMI 23.9
--- NOTE | 2021-02-24 08:07 | BI_ITS ---
MAMMOGRAPHY - BILATERAL SCREENING REASON FOR EXAM: Female, 65 years old. Routine annual screening examination. PERTINENT HISTORY: Grandmother with breast cancer. Remote left stereotactic breast biopsy. TECHNIQUE: Digital bilateral breast arti (3D mammographic acquisition) in the CC and MLO projections. 2-D mediolateral oblique (MLO) and craniocaudad (CC) views of both breasts were obtained. CAD: Full Field Digital Mammography with Computer Added Detection was performed. COMPARISON: Comparison is made with prior study dated 02/05/2020 and 01/09/2019. FINDINGS: Breast Composition: The breasts are heterogeneously dense, which may obscure small masses. There are no dominant masses or suspicious calcifications. A tissue clip marker from prior stereotactic breast biopsy is seen in the deep upper lateral aspect of the No other significant abnormalities are identified. There has been no significant change since the prior study. BI/SCRN MAMM (CAD)W/ARTI BILAT IMPRESSION: Stable bilateral screening mammogram. Yearly follow-up mammogram recommended. (A) ASSESSMENT CATEGORY: BIRADS Category 2: Benign. A letter regarding these results will be sent to the patient by the facility within 30 days. Approximately 10% of breast cancers are not detected by mammography. A normal mammogram should not delay biopsy of a clinically suspicious abnormality. [id number] Electronically Signed: Rafal Dos Santos MD at 8:39 EDT , Service support ,
== END ==
PROVIDERS: PCP Internal Medicine; Referring Provider Internal Medicine; Visit Provider Internal Medicine
DX: Z12.31 Encounter for screening mammogram for malignant neoplasm of breast (principal)
CPT/HCPCS: 77063; 77067

== ENCOUNTER 2021-04-24 10:21 | Emergency (ER) | payer OTHER, SELFPAY ==
[2020-09-23 15:30] VITALS: BMI 23.9
[2021-04-24] VITALS (7 sets, daily range): BP systolic 126–162; BP diastolic 82–93; PULSE 56–71; RESP 14–18; TEMP 36.8; O2SAT 96–99; BMI 24.9
--- NOTE | 2021-04-24 10:30 | EKG12_ITS ---
Test Reason : CP Blood Pressure : / mmHG Vent. Rate : 060 BPM Atrial Rate : 060 BPM P-R Int : 172 ms QRS Dur : 076 ms QT Int : 426 ms P-R-T Axes : 044 063 041 degrees QTc Int : 426 ms Normal sinus rhythm Normal ECG Confirmed by LAUREN SEVERINO, PAPITO ([id number]), video editor LATASHA BRITTON ([id number]) on 04/28/2021 1:44:13 PM Referred By: GRZEGORZ Confirmed By:PAPITO AGUILAR MD
--- NOTE | 2021-04-24 10:30 | RAD_ITS ---
STUDY: X-RAY CHEST REASON FOR EXAM: Female, 65 years old. chest pain TECHNIQUE: Single AP portable view of the chest. COMPARISON: None. FINDINGS: Cardiac silhouette unremarkable. Pulmonary vascularity unremarkable. Aorta unremarkable. No focal patchy airspace opacities. No pleural effusions. COPD. Upper abdomen unremarkable. Osseous structures intact. No pneumothorax. RAD/Chest 1 View (Portable) IMPRESSION: No acute cardiopulmonary findings Electronically Signed: Orestes Greene DO at 11:24 EDT Tel , Service support ,
--- NOTE | 2021-04-24 10:32 | ED.VIS.CHEST ---
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) Timing: Continuous Quality: Positive for Tightness (nonpleuritic) Location: Left Chest (w/ radiation into left upper back) Current Severity: Mild Maximum Severity: Mild Worsened By: Nothing; Not Worsened By Exertion, Movement of Arm and Breathing Relieved By: Nothing Associated Symptoms: Negative for Nausea, Vomiting, Diaphoresis, Dyspnea, Cough, Lightheadedness and Palpitations Narrative Narrative: 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 She does not have a history of heart disease. No recent long trips, immobilization, travel, hospitalization, or surgery. She denies having contact with anyone with COVID-19 recently, having had the illness, nor has she had the vaccine because she is afraid of possible adverse effects. Prior Similar Symptoms: No Recent Illness/Hospitalization: No CVD Risk Factors: Negative for Hypertension, Diabetes, Hypercholesterolemia, Family History 1' </=55 and Smoking PE Risk Factors: Negative for Recent Travel/Surgery (only trip to/from [place] 4wks ago, 2 hrs by plane), Recent Immobilization, Prior DVT or PE, Cancer and OCP + Smoking + >/=35 PFSH PFS Medical History Cystocele Hemorrhoid Home Medications cholecalciferol (vitamin D3) 50 mcg (2,000 unit) capsule 2,000 unit PO QDAY 03/07/18 [History Last Taken Unknown] calcium carbonate 600 mg PO DAILY 09/02/20 [History Last Taken Unknown] omeprazole 40 mg PO DAILY #14 cap 04/24/21 [Rx Last Taken Unknown] Allergy/AdvReac Type Severity Reaction Status Date / Time No Known Allergies Allergy Verified 04/24/21 10:22 Family History Grandmother Breast cancer Mother Hypertension COPD (chronic obstructive pulmonary disease) Surgical History bilateral sacrospinous ligament fixation H/O bilateral salpingo-oophorectomy H/O cystoscopy H/O total vaginal hysterectomy History of colonoscopy (~2018) History of Mohs micrographic surgery for skin cancer S/P bunionectomy stereotactic biopsy Social History Smoking Status: Never smoker alcohol intake: current alcohol intake frequency: a few times a week Alcohol type: wine details: 2-3 glasses per week substance use type: does not use caffeine: Yes what type of physical activity do you participate in: walking and weight training frequency: 5-6 times per week seatbelt use: always do you feel safe at home: Yes 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[employer] ROS ED Constitutional Constitutional ED: Denies chills or fever(s) Eyes Eyes: Denies change in vision or diplopia ENT ENT ED: Denies rhinorrhea or sore throat Cardiovascular Cardiovascular: Reports as per HPI and chest pain; Denies palpitations Respiratory/Chest Respiratory/Chest: Denies cough or dyspnea Gastrointestinal Gastrointestinal: Denies abdominal pain, diarrhea, nausea or vomiting Genitourinary Genitourinary ED: Denies dysuria or hematuria Musculoskeletal Musculoskeletal: Denies back pain or neck pain Integumentary Denies abscess or rash Neurologic Neurologic: Denies headache(s), paresthesias or weakness Psychiatric Psychiatric: Denies anxiety or suicidal thoughts EXAM Physical Exam Const Vital Signs: 04/24/21 10:22 04/24/21 10:24 04/24/21 10:33 Temperature 98.2 F Temperature Source Temporal Pulse Rate 64 Respiratory Rate 16 Respiratory Effort Normal Non-Labored Blood Pressure 159/87 H Blood Pressure Mean 111 Pulse Ox 99 98 Oxygen Delivery Method Room Air Room Air 04/24/21 11:26 04/24/21 12:00 04/24/21 13:00 Temperature Temperature Source Pulse Rate 58 L 63 56 L Respiratory Rate 16 14 18 Respiratory Effort Blood Pressure 162/93 H 133/86 H 126/82 H Blood Pressure Mean 116 101 96 Pulse Ox 98 96 96 Oxygen Delivery Method Room Air Room Air 04/24/21 14:00 Temperature Temperature Source Pulse Rate 57 L Respiratory Rate 18 Respiratory Effort Blood Pressure 150/93 H Blood Pressure Mean 112 Pulse Ox 98 Oxygen Delivery Method Room Air Positive well nourished and well developed General Appearance ED: well developed and NAD HEENT Reports moist mucous membranes normocephalic and atraumatic Eyes PERRL and EOMs intact bilaterally Neck full ROM and supple Resp normal respiratory effort and clear to auscultation bilaterally Cardio regular rate, regular rhythm and no murmurs Rate: Negative for tachycardic GI non-tender and non-distended Auscultation: normoactive bowel sounds Palpation: soft Back/Spine no CVA tenderness General Back: other FROM Extremity normal to inspection General Extremety ED: Negative for edema, pulses abnormal or tenderness General Extremity: Negative for edema or pulses abnormal Neuro oriented x3, CN's II-XII intact bilaterally and no sensory deficits noted Sensorium / Orientation: awake and alert Motor Exam: strength 5/5 throughout Skin no rashes or lesions noted and no wounds Heart Score History: Slightly/Non-Suspicious ECG: Normal Age: >/= 65 years Risk Factors: No Risk Factors Troponin: </= Normal Limit Score: 2 MDM MDM MDM Narrative Medical decision making narrative: Work-up was performed while patient was given a GI cocktail which seemed to help some, but not all the way. Her work-up is otherwise negative. We discussed a delta troponin and she was amenable, the repeat is negative 3 hours after the initial. She wishes to go home. Advised to follow closely as an outpatient, do not think she needs further testing for pulmonary embolus since these symptoms are not consistent with that and her vital signs are normal without any tachycardia, her heart rate resting is in the 50s. I will prescribe her a PPI to take in the meantime. Lab Data Attestation: I reviewed the patient's lab results. Labs: Laboratory Results - last 24 hr 04/24/21 04/24/21 04/24/21 10:30 10:30 13:24 WBC 5.3 RBC 4.45 Hgb 13.9 Hct 42.1 MCV 94.6 MCH 31.2 MCHC 33.0 RDW Std Deviation 44.5 H RDW Coeff of Juan Carlos 12.9 Plt Count 201 MPV 8.9 Immature Gran % (Auto) 0.200 Neut % (Auto) 62.5 Lymph % (Auto) 28.3 [place] % (Auto) 5.7 Eos % (Auto) 2.7 Baso % (Auto) 0.6 Absolute Neuts (auto) 3.3 Absolute Lymphs (auto) 1.49 Nucleated RBC % 0 Sodium 141 Potassium 3.9 Chloride 107 Carbon Dioxide 31.0 Anion Gap 3 L BUN 15 Creatinine 0.90 Estim Creat Clear Calc 55.33 Est GFR (MDRD) Af Amer 81 Est GFR (MDRD) Non-Af 67 BUN/Creatinine Ratio 16.7 Glucose 76 Calcium 9.9 Troponin I < 0.015 < 0.015 Radiography Diagnostic Testing: Radiology Impression Chest X-Ray 04/24/21 10:30 IMPRESSION: No acute cardiopulmonary findings Electronically Signed: Orestes Greene DO at 11:24 EDT Tel , Service support , EKG Initial EKG: Attestation: I personally reviewed and interpreted this EKG as follows: Interpretation: Sinus Rhythm and No Acute Injury Pattern Comments: normal EKG. performed during presence of sx. Prior EKG tracings: not available for review Discharge Plan Triage Chief Complaint: Chest Pain ED Provider: Federico Issa Dx/Rx/DC Orders Clinical Impression: Chest pain, unspecified Instructions: ED Chest Pain, Uncertain Cause Prescriptions: New omeprazole 40 mg capsule,delayed release(DR/EC) 40 mg PO DAILY Qty: 14 RF: 0 No Action cholecalciferol (vitamin D3) 2,000 unit capsule 2,000 unit PO QDAY RF: 0 calcium carbonate 600 MG tablet 600 mg PO DAILY RF: 0 Primary Care Provider: Dee Alvarez Referrals: Dee Alvarez DO [Primary Care Provider] - As soon as possible (Call for appointment, being seen after the weekend is okay, return for new symptoms that you are concerned with) Disposition Disposition: Home, self care
[2021-04-24] MEDS: Mag Hydrox/Al Hydrox/Simeth 30 ML UDC PO (10:42)
[2021-04-24 10:43] LABS: Absolute Lymphocyte Count 1.49 X10^3/uL (0.83-4.51); Absolute Neutrophil Count 3.3 X10^3/uL (2.0-7.7); Basophil# 0.03 X10^3/uL; Basophil% 0.6 % (0-1); Eosinophil# 0.14 X10^3/uL; Eosinophils% 2.7 % (0-5); Hematocrit 42.1 % (37-47); Hemoglobin 13.9 g/dL (12.0-15.0); Lymphocyte # 1.49 X10^3/ul (0.83-4.51); Lymphocyte % 28.3 % (19-41); Mean Corpuscular Hgb 31.2 pg (27.0-32.0); Mean Corpuscular Volume 94.6 fL (81-99); Mean Platelet Vol. 8.9 fl (6.2-12.0); Monocyte% 5.7 % (0-10); NRBC Flagged by Analyzer 0 % (0-5); Neutrophil % 62.5 % (47-70); Platelet Count 201 K/mm3 (150-450); RBC Distribution Width CV 12.9 % (11.6-14.6); RBC Distribution Width SD 44.5 fl (35.1-43.9); Red Blood Count 4.45 M/mm3 (4.2-5.4); White Blood Count 5.3 K/mm3 (4.4-11.0)
[2021-04-24 11:00] LABS: Anion Gap 3 (5-15); BUN 15 mg/dL (7-18); BUN/Creat Ratio 16.7 RATIO (10-20); Calcium,Total 9.9 mg/dL (8.5-10.1); Chloride 107 mmol/L (98-107); EST Glomerular Filtration Rate 67 mL/min (>60); Est Glom Filt Rate - Afr Amer 81 mL/min (>60); Estimated Creatinine Clearance 55.33 ml/min; Glucose 76 mg/dL (74-106); Potassium 3.9 mmol/L (3.5-5.1); Sodium Level 141 mmol/L (136-145)
== END 2021-04-24 15:22 | disposition home or self-care (01) ==
PROVIDERS: Emergency Provider Emergency Medicine; PCP Internal Medicine
DX: R07.9 Chest pain, unspecified (principal); Z79.899 Other long term (current) drug therapy
CPT/HCPCS: 71045; 80048; 84484; 85025; 93005; 99285; A4216

== ENCOUNTER → 2021-06-30 06:16 | Outpatient (CLI) | payer OTHER, SELFPAY ==
[2021-04-24 10:22] VITALS: BMI 24.9
--- NOTE | 2021-06-30 06:20 | ECHOD_ITS ---
Reason For Study: Chest Pain Procedure This was a 2D Doppler, Color Flow transthoracic echocardiogram. The exam was of adequate technical quality. Exam performed in department. Left Ventricle Normal LV size. Left ventricular systolic function is normal. The estimated ejection fraction is 65 %. Diastolic function is indeterminate. No regional wall motion abnormalities noted. Right Ventricle Normal RV size. Normal systolic function. Atria Borderline enlarged left atrium. Borderline enlarged right atrium. No doppler evidence for ASD. Mitral Valve There is no mitral annular calcification. Mild diffuse mitral valve thickening. Mild (1+) mitral valve insufficiency. Tricuspid Valve Normal tricuspid valve. Mild tricuspid valve insufficiency. Right ventricular systolic pressure estimated to be 26 mmHg. Aortic Valve Trisinus/trileaflet aortic valve. Mild diffuse aortic valve thickening. Pulmonic Valve The pulmonic valve is not well visualized. Trivial pulmonic valve insufficiency. Great Vessels The aortic root is not well visualized. Pericardium/Pleural No pericardial effusion. MMode/2D Measurements & Calculations LVIDd: 4.3 cm IVSd: 1.1 cm LA dimension: 3.3 cm LVIDs: 3.1 cm LVPWd: 0.75 cm RVDd: 4.0 cm FS: 28.8 % LAV(MOD-bp): 57.2 ml LVAd ap4: 25.7 cm2 SV(MOD-sp4): 46.6 ml LAV(MOD-bp) Indexed: 34.0 ml/m2 LVLd ap4: 6.7 cm LAV(MOD-sp2): 56.3 ml EDV(MOD-sp4): 79.8 ml LAV(MOD-sp4): 56.7 ml EDV(sp4-el): 84.1 ml LVAs ap4: 15.2 cm2 LVLs ap4: 5.9 cm ESV(MOD-sp4): 33.2 ml ESV(sp4-el): 33.4 ml EF(MOD-sp4): 58.4 % EF(sp4-el): 60.3 % SV(sp4-el): 50.7 ml LA A4 area: 19.2 cm2 RA A4 area: 22.4 cm2 Time Measurements MV dec time: 0.20 sec Doppler Measurements & Calculations MV E max fernando: 76.0 cm/sec Lat Peak E' Fernando: 9.2 cm/sec Med Peak E' Fernando: 8.6 cm/sec MV A max fernando: 85.2 cm/sec E/E' lat: 8.2 E/E' med: 8.9 MV E/A: 0.89 MV V2 max: 92.7 cm/sec MV P1/2t max fernando: 83.6 cm/sec Ao V2 max: 138.0 cm/sec MV max P.4 mmHg MV P1/2t: 65.1 msec Ao max P.6 mmHg MV V2 mean: 45.0 cm/sec MV mean P.0 mmHg MV dec slope: 376.1 cm/sec2 MV V2 VTI: 29.1 cm MVA(P1/2t): 3.4 cm2 LV V1 max: 121.3 cm/sec PA V2 max: 112.7 cm/sec TR max fernando: 240.1 cm/sec LV V1 max P.9 mmHg TR max P.1 mmHg ECHO/Echo Complete Interpretation Summary Left ventricular systolic function is normal. The estimated ejection fraction is 65 %. Borderline enlarged left atrium. Borderline enlarged right atrium. Mild diffuse mitral valve thickening. Mild (1+) mitral valve insufficiency. Mild tricuspid valve insufficiency. Mild diffuse aortic valve thickening. Trivial pulmonic valve insufficiency. Right ventricular systolic pressure estimated to be 26 mmHg. Diastolic function is indeterminate. Ordering Physician: Angie Norton Referring Physician: Angie Norton Performed By: Craig Maciel RCS
--- NOTE | 2021-06-30 13:16 | STRESSREP_ITS ---
Stress Test Report Date: 06-30-2021 Procedure: Exercise tolerance test/imaging study Indications: Chest pain Consent: Per the patient Procedure: The patient exercised on a Niels protocol for 12 minutes completing Stage IV achieving a peak heart rate of 150 bpm (97% predicted maximal heart rate) with a peak blood pressure 166/68 mmHg and a peak MET capacity of 13 METs. The baseline ECG demonstrated sinus bradycardia. The peak exercise ECG demonstrated no obvious ECG changes. There was a rare PVC during exercise. The functional capacity was considered good. There was no complaint of chest discomfort during exercise or recovery. The examination was discontinued secondary to dyspnea. Impression: 1. Technically adequate (percent predicted maximal heart rate greater than 85%) exercise tolerance test 2. Peak exercise ECG with no obvious ECG changes 3. There was a rare PVC during exercise 4. Nuclear images pending Myocardial perfusion imaging study: Technique: The patient was injected with 11.6 mCi of technetium 99m Cardiolite and subsequently rest SPECT Cardiolite nuclear imaging was obtained in the horizontal long, vertical long, and short axis views. The patient exercised on a Niels protocol for 12 minutes completing Stage IV achieving a peak heart rate of 150 bpm (97% predicted maximal heart rate) with a peak blood pressure 166/68 mmHg and a peak MET capacity of 13 METs. The patient was injected with 33.8 mCi of technetium 99m Cardiolite and subsequently stress SPECT Cardiolite nuclear imaging was obtained in the horizontal long, vertical long, and short axis views. A gated Cardiolite study at peak stress was obtained. Interpretation: Rest and stress SPECT Cardiolite nuclear imaging status post realignment, normal ization, and attenuation correction, demonstrates the appearance of relative uniform tracer uptake and myocardial perfusion appearing within normal limits. There is end systolic thickening and brightening. The gated Cardiolite study demonstrates myocardial thickening and inward wall motion. The reported LVEF is 75%. Impression: 1. Rest and stress SPECT Cardiolite nuclear imaging demonstrate relative uniform tracer uptake and myocardial perfusion appearing within normal limits. 2. The gated Cardiolite study reports an LVEF of 75%. This note was generated with [employer] software. It may contain incorrect words, spelling, and punctuation that were not noted in checking the note before signing.
== END ==
PROVIDERS: PCP Internal Medicine; Referring Provider Internal Medicine; Visit Provider Internal Medicine
DX: R07.9 Chest pain, unspecified (principal)
CPT/HCPCS: 78452; 93017; 93306; A9500; A4216

== ENCOUNTER 2021-07-24 05:28 | Day surgery (SDC) | payer OTHER, SELFPAY ==
[2021-04-24 10:22] VITALS: BMI 24.9
[2021-07-24] VITALS (9 sets, daily range): BP systolic 110–151; BP diastolic 70–93; PULSE 56–63; RESP 12–18; TEMP 36.3–37; O2SAT 92–100; BMI 23.3
--- NOTE | 2021-07-24 06:22 | PCM.HP.STD ---
HPI - General HPI Narrative HERMILO HE, is a 65 F who presents for surveillance colonoscopy. On July 07, 2018 she had a screening colonoscopy. Sessile polyp at the splenic flexure was identified and sigmoid diverticulosis as well as grade 2-3 internal and external hemorrhoids. Pathology was consistent with a tubular adenoma. I did see the patient in the office subsequent to that previous event. We discussed surgical treatment of her hemorrhoids. Because of the hygiene problem I felt that surgical treatment be recommended. At this point she had elected not to pursue but continues to have that as a question [facility] Medical History (Updated 07/24/21 @ 06:[address] Russell Njaera MD) Alcohol use Cystocele Gastric reflux Hemorrhoid History of echocardiogram History of stress test Non-smoker Post-menopausal Wears glasses Home Medications cholecalciferol (vitamin D3) 50 mcg (2,000 unit) capsule 2,000 unit PO QDAY 03/07/18 [History Last Taken Unknown] calcium carbonate 600 mg PO DAILY 09/02/20 [History Last Taken Unknown] Allergy/AdvReac Type Severity Reaction Status Date / Time No Known Allergies Allergy Verified 07/24/21 05:48 Family History Grandmother Breast cancer Mother Hypertension COPD (chronic obstructive pulmonary disease) Surgical History bilateral sacrospinous ligament fixation H/O bilateral salpingo-oophorectomy H/O cystoscopy H/O total vaginal hysterectomy History of colonoscopy (~2017) History of Mohs micrographic surgery for skin cancer S/P bunionectomy stereotactic biopsy Social History Smoking Status: Never smoker alcohol intake: current alcohol intake frequency: a few times a week Alcohol type: wine details: 2-3 glasses per week substance use type: does not use caffeine: Yes what type of physical activity do you participate in: walking and weight training frequency: 5-6 times per week seatbelt use: always do you feel safe at home: Yes 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[employer] ROS Constitutional Constitutional: Reports systems reviewed and no addt'l complaints, except as documented Cardiovascular Cardiovascular: Denies chest pain Respiratory/Chest Respiratory/Chest: Denies shortness of breath at rest Gastrointestinal Gastrointestinal: Denies abdominal pain, change in bowel habits, hematochezia or melena Vital Signs Vital Signs Vital Signs: 07/24/21 05:49 Temperature 98.6 F Temperature Source Temporal Pulse Rate 58 L Respiratory Rate 18 Respiratory Pattern Normal Blood Pressure 133/81 H Blood Pressure Mean 98 Blood Pressure Source Monitor Blood Pressure Position Sitting Blood Pressure Location Right Arm Pulse Ox 99 Oxygen Delivery Method Room Air Weight Weight: 138 lb 6.4 oz Body Mass Index (BMI) 23.3 Physical Exam Const alert, oriented x3 and no apparent distress General Appearance: cooperative and comfortable Eyes General Eye: normal appearance of both eyes Neck General: normal visual inspection Chest inspection of chest normal Resp Effort and Inspection: able to speak in complete sentences and symmetric chest movement Auscultation: clear to auscultation bilaterally Cardio regular rate and regular rhythm GI soft to palpation, non-tender and non-distended Extremity no calf tenderness Neuro oriented x3 Psych thought process normal Assessment & Plan Assessment/Plan (1) Personal history of colonic polyps: PLAN: Patient with personal history of a polyp at the splenic flexure. Endoscopy August 2018. Recommend a colonoscopy with possible biopsy or polypectomy as indicated. She is aware of the technique, benefit, risk, alternatives. She presents via open access today. We will proceed as noted. Russell Najera M.D., F.A.C.S.
[2021-07-24] MEDS: Midazolam 5 MG/ML Syringe (06:40)
--- NOTE | 2021-07-24 06:52 | OP.COLON_ITS ---
Patient Name: Erin Dyson Procedure Date: 07/24/2021 6:12 AM Date of : 1955 Age: 65 Procedure: Colonoscopy Indications: High risk colon cancer surveillance: Personal history of colonic polyps Providers: Russell Najera MD Referring MD: Russell Najera MD Medicines: Midazolam 3.5 mg IV, Meperidine 80 mg IV Patient Profile: Last Colonoscopy: August 2018. Complications: No immediate complications. Procedure: Pre-Anesthesia Assessment: - Prior to the procedure, a History and Physical was performed, and patient medications and allergies were reviewed. The patient's tolerance of previous anesthesia was also reviewed. The risks and benefits of the procedure and the sedation options and risks were discussed with the patient. All questions were answered, and informed consent was obtained. Prior Anticoagulants: The patient has taken no previous anticoagulant or antiplatelet agents. ASA Grade Assessment: I - A normal, healthy patient. After reviewing the risks and benefits, the patient was deemed in satisfactory condition to undergo the procedure. After I obtained informed consent, the scope was passed under direct vision. Throughout the procedure, the patient's blood pressure, pulse, and oxygen saturations were monitored continuously. The Colonoscope was introduced through the anus and advanced to the cecum, identified by appendiceal orifice and ileocecal valve. The colonoscopy was performed without difficulty. The patient tolerated the procedure well. The quality of the bowel preparation was good. The ileocecal valve was photographed. Moderate Sedation: Moderate (conscious) sedation was personally administered by the endoscopist. The following parameters were monitored: oxygen saturation, heart rate, blood pressure, and response to care. Total physician intraservice time was 15 minutes. Scope In: 6:35:29 AM Scope Withdrawal Time 0 hours 6 minutes 25 seconds Scope Out: 6:46:43 AM Total Procedure Duration Time 0 hours 11 minutes 14 seconds Findings: The digital rectal exam findings include non-thrombosed internal hemorrhoids and internal hemorrhoids that prolapse with straining, but require manual replacement into the anal canal (Grade III). Scattered diverticula were found in the sigmoid colon. The exam was otherwise without abnormality. Impression: - Non-thrombosed internal hemorrhoids and internal hemorrhoids that prolapse with straining, but require manual replacement into the anal canal (Grade III) found on digital rectal exam. - Diverticulosis in the sigmoid colon. - The examination was otherwise normal. - No specimens collected. Recommendation: - Discharge patient to home. - Resume previous diet. - Continue present medications. - Repeat colonoscopy in 5 years for surveillance. - Return to my office in 1 week to discuss treatment of internal and external hemorrhoids. If hygiene of most importance then consider surgical removal. Procedure Code(s): --- Professional --- 89761, Colonoscopy, flexible; diagnostic, including collection of specimen(s) by brushing or washing, when performed (separate procedure) 47238, 59, Moderate sedation services provided by the same physician or other qualified health progressive care nurse performing the diagnostic or therapeutic service that the sedation supports, requiring the presence of an independent trained observer to assist in the monitoring of the patient's level of consciousness and physiological status; initial 15 minutes of intraservice time, patient age 5 years or older Diagnosis Code(s): --- Professional --- Z86.010, Personal history of colonic polyps K64.2, Third degree hemorrhoids K57.30, Diverticulosis of large intestine without perforation or abscess without bleeding CPT copyright 2017 [employer]. All rights reserved. The codes documented in this report are preliminary and upon auto battery builder review may be revised to meet current compliance requirements. Russell Najera MD 07/24/2021 6:52:10 AM This report has been signed electronically. Number of Addenda: 0 Note Initiated On: 07/24/2021 6:12 AM
--- NOTE | 2021-07-24 06:52 | OP.CCLET_ITS ---
07/24/2021 Angie Norton Re : Colonoscopy procedure for Erin Espinozar Errol This procedure was performed on Saturday, July 24, 2021. My impressions and recommendations are as follows: Impressions : - Non-thrombosed internal hemorrhoids and internal hemorrhoids that prolapse with straining, but require manual replacement into the anal canal (Grade III) found on digital rectal exam. - Diverticulosis in the sigmoid colon. - The examination was otherwise normal. - No specimens collected. Recommendations : - Discharge patient to home. - Resume previous diet. - Continue present medications. - Repeat colonoscopy in 5 years for surveillance. - Return to my office in 1 week to discuss treatment of internal and external hemorrhoids. If hygiene of most importance then consider surgical removal. My findings are described in the full procedure note, which is enclosed. If I can be of further assistance, please feel free to contact me at Doctor phone number(s): Work: . Sincerely, Russell Najera MD 07/24/2021 6:52:10 AM This report has been signed electronically.
== END 2021-07-24 07:46 ==
LOC: EN 05:28 → AC 05:29
PROVIDERS: PCP Internal Medicine; Referring Provider Surgery; Visit Provider Surgery
PROC: 0DJD8ZZ Inspection of Lower Intestinal Tract, Via Natural or Artificial Opening Endoscopic (ICD-10-PCS; CPT 45378; principal; 2021-07-24 06:25)
DX: Z12.11 Encounter for screening for malignant neoplasm of colon (principal); K57.30 Diverticulosis of large intestine without perforation or abscess without bleeding; K64.2 Third degree hemorrhoids; K21.9 Gastro-esophageal reflux disease without esophagitis; Z20.822 Contact with and (suspected) exposure to COVID-19; Z78.0 Asymptomatic menopausal state; Z86.010 Personal history of colon polyps; Z87.19 Personal history of other diseases of the digestive system
CPT/HCPCS: 45378; 87426; 99152; 99153; C9803; J7120

== ENCOUNTER → 2021-08-24 14:49 | Outpatient (CLI) | payer OTHER, SELFPAY ==
[2021-08-24 16:27] LABS: Color, Urine Yellow (Yellow); Glucose, Dipstick Normal (Normal); Ketone-Dipstick Negative (Negative); Leukocyte Esterase-Dipstick 500 /ul (Negative); Nitrite-Dipstick Positive (Negative); Occult Blood-Urine 150 /ul (Negative); Protein-Dipstick 30 mg/dl (Negative); Urine Bilirubin Dipstick Negative (Negative); Urine Clarity Sl. Cloudy (Clear); Urine Urobilinogen Normal (Normal)
== END ==
PROVIDERS: PCP Internal Medicine; Referring Provider Internal Medicine; Visit Provider Internal Medicine
DX: R35.8 Other polyuria (principal)
CPT/HCPCS: 81002; 87086; 87088; 87186

== ENCOUNTER 2021-12-28 05:54 | Outpatient (CLI) | payer OTHER, SELFPAY ==
[2021-12-28 07:35] LABS: AST(SGOT) 20 U/L (15-37); Alanine Aminotransfer ALT/SGPT 24 U/L (13-56); Albumin, Serum 3.8 g/dL (3.2-5.0); Alkaline Phosphatase 53 U/L (45-117); Anion Gap 4 (5-15); BUN 19 mg/dL (7-18); BUN/Creat Ratio 23.5 RATIO (10-20); Calcium,Total 9.6 mg/dL (8.5-10.1); Chloride 108 mmol/L (98-107); Cholesterol 208 mg/dL (200); Creatinine, Serum 0.81 mg/dL (0.55-1.02); EST Glomerular Filtration Rate 75 mL/min (>60); Est Glom Filt Rate - Afr Amer 91 mL/min (>60); Globulin 3.8 g/dL (2.2-4.2); Glucose 90 mg/dL (74-106); High Density Lipoprotein 88 mg/dL; Potassium 3.9 mmol/L (3.5-5.1); Protein, Total 7.6 g/dL (6.4-8.2); Sodium Level 140 mmol/L (136-145); Triglycerides 47 mg/dL; Very Low Density Lipoprotein 9 mg/dL (5-40)
[2021-12-28 08:18] LABS: Vitamin D,25 Hydroxy 91.4 ng/mL
== END 2021-12-28 23:59 | disposition short-term general hospital (02) ==
LOC: LAB 05:54
PROVIDERS: PCP Internal Medicine; Referring Provider Internal Medicine; Visit Provider Internal Medicine
DX: E78.5 Hyperlipidemia, unspecified (principal); E55.9 Vitamin D deficiency, unspecified
CPT/HCPCS: 36415; 80053; 80061; 82306

== ENCOUNTER → 2022-04-06 | Outpatient (CLI) | payer OTHER, SELFPAY ==
--- NOTE | 2022-04-06 12:25 | BI_ITS ---
MAMMOGRAPHY - BILATERAL SCREENING REASON FOR EXAM: Female, 66 years old. Routine annual screening examination. PERTINENT HISTORY: Grandmother with breast cancer. Remote left stereotactic breast biopsy. TECHNIQUE: Digital bilateral breast arti (3D mammographic acquisition) in the CC and MLO projections. 2-D mediolateral oblique (MLO) and craniocaudad (CC) views of both breasts were obtained. CAD: Full Field Digital Mammography with Computer Added Detection was performed. COMPARISON: Comparison is made with prior study 02/24/2021 and 02/05/2020. FINDINGS: Breast Composition: The breasts are extremely dense, which lowers the sensitivity of mammography. There are no dominant masses or suspicious calcifications. A tissue clip marker is seen in the deep upper outer aspect of the left breast. No other significant abnormalities are identified. There has been no significant change since the prior study. BI/SCRN MAMM (CAD)W/ARTI BILAT IMPRESSION: Stable bilateral screening mammogram. Yearly follow-up mammogram recommended. (A) ASSESSMENT CATEGORY: BIRADS Category 2: Benign. A letter regarding these results will be sent to the patient by the facility within 30 days. Approximately 10% of breast cancers are not detected by mammography. A normal mammogram should not delay biopsy of a clinically suspicious abnormality. [id number] Electronically Signed: Rafal Dos Santos MD at 13:38 EDT ,
== END | disposition home or self-care (01) ==
LOC: OPBI 12:23
PROVIDERS: PCP Internal Medicine; Visit Provider Internal Medicine
DX: Z12.31 Encounter for screening mammogram for malignant neoplasm of breast (principal)
CPT/HCPCS: 77063; 77067

== ENCOUNTER → 2023-01-07 | Outpatient (CLI) | payer OTHER, SELFPAY ==
[2023-01-07 08:28] LABS: Vitamin D,25 Hydroxy 63.4 ng/mL
[2023-01-07 08:30] LABS: ALB/GLOB Ratio 1.1 RATIO (0.9-2.4); AST(SGOT) 26 U/L (15-37); Alanine Aminotransfer ALT/SGPT 23 U/L (13-56); Alkaline Phosphatase 50 U/L (45-117); Anion Gap 7 (5-15); BUN 13 mg/dL (7-18); BUN/Creat Ratio 15.2 RATIO (10-20); Calcium,Total 9.9 mg/dL (8.5-10.1); Chloride 106 mmol/L (98-107); Cholesterol 232 mg/dL (200); Creatinine, Serum 0.86 mg/dL (0.55-1.02); EST Glomerular Filtration Rate 70 mL/min (>60); Est Glom Filt Rate - Afr Amer 85 mL/min (>60); Globulin 3.6 g/dL (2.2-4.2); Glucose 95 mg/dL (74-106); High Density Lipoprotein 103 mg/dL; Potassium 4.2 mmol/L (3.5-5.1); Protein, Total 7.6 g/dL (6.4-8.2); Sodium Level 140 mmol/L (136-145); Triglycerides 55 mg/dL; Very Low Density Lipoprotein 11 mg/dL (5-40)
== END | disposition home or self-care (01) ==
LOC: LAB 06:57
PROVIDERS: PCP Internal Medicine; Referring Provider Internal Medicine; Visit Provider Internal Medicine
DX: C43.9 Malignant melanoma of skin, unspecified (principal); E78.5 Hyperlipidemia, unspecified; E55.9 Vitamin D deficiency, unspecified
CPT/HCPCS: 36415; 80053; 80061; 82306

== ENCOUNTER → 2023-03-11 | Outpatient (CLI) | payer OTHER, SELFPAY ==
--- NOTE | 2023-03-11 09:03 | RAD_ITS ---
HISTORY: Persistent cough. TECHNIQUE: XR Chest 2 Views. COMPARISON: 04/24/2021. FINDINGS: CARDIOMEDIASTINAL BORDERS: Cardiac silhouette within normal limits in size. Mediastinal contour unremarkable with calcification of the aortic knob. LUNGS: Radiographically clear. PLEURA: No pleural effusion or pneumothorax seen. OSSEOUS STRUCTURES: Unremarkable. RAD/Chest PA and Lateral IMPRESSION: No acute cardiopulmonary process identified. Electronically Signed: Mary Dia MD at 9:18 EDT ,
== END | disposition home or self-care (01) ==
PROVIDERS: PCP Internal Medicine; Referring Provider Physician Assistant Surgical; Visit Provider Physician Assistant Surgical
DX: J20.9 Acute bronchitis, unspecified (principal)
CPT/HCPCS: 71046

== ENCOUNTER → 2023-04-20 | Outpatient (CLI) | payer OTHER, SELFPAY ==
--- NOTE | 2023-04-20 09:10 | BI_ITS ---
MAMMOGRAPHY - BILATERAL SCREENING REASON FOR EXAM: Female, 67 years old. Routine annual screening examination. PERTINENT HISTORY: Grandmother with breast cancer. Remote left breast stereotactic biopsy. TECHNIQUE: Digital bilateral breast ankur (3D mammographic acquisition) in the CC and MLO projections. 2-D mediolateral oblique (MLO) and craniocaudad (CC) views of both breasts were obtained. CAD: Full Field Digital Mammography with Computer Added Detection was performed. COMPARISON: Mammogram from 04/06/2022, 02/24/2021. FINDINGS: Breast Composition: The breasts are extremely dense, which lowers the sensitivity of mammography. There are no dominant masses or suspicious calcifications. Stable biopsy marker in the left breast. No other significant abnormalities are identified. There has been no significant change since the prior study. BI/SCREENING MAMM (CAD), BILAT IMPRESSION: Stable bilateral screening mammogram. Yearly follow-up mammogram recommended. (A) ASSESSMENT CATEGORY: BIRADS Category 2: Benign. A letter regarding these results will be sent to the patient by the facility within 30 days. Approximately 10% of breast cancers are not detected by mammography. A normal mammogram should not delay biopsy of a clinically suspicious abnormality. Electronically Signed: Servando Thomason DO at 11:30 EDT ,
--- NOTE | 2023-04-20 09:26 | BD_ITS ---
STUDY: DUAL ENERGY X-RAY ABSORPTIOMETRY / DXA REASON FOR EXAM: Female, 67 years old. [id number] TECHNIQUE: Bone Mineral Density (BMD) measurements of lumbar spine and bilateral hips were obtained. COMPARISON: Comparison is made with prior study dated April 10, 2020. FINDINGS: Lumbar Spine (L1-L4): g/cm2 (0.989) / T-score (-0.5) / Z-score (1.5) Findings are suggestive of normal bone density with a low fracture risk. Left Femur Total: g/cm2 (0.939) / T-score (0.0) / Z-score (1.4) Left Femoral Neck: g/cm2 (0.806) / T-score (-0.4) / Z-score (1.3) Right Femur Total: g/cm2 (0.875) / T-score (-0.6) / Z-score (0.9) Right Femoral Neck: g/cm2 (0.738) / T-score (-1.0) / Z-score (0.7) The T-Scores on the most recent prior examination were: Lumbar Spine (L1-L4): There has been worsening of bone density since the previous examination. Left Femur Total: which represents a worsening of 1.8%. Right Femur Total: which represents a worsening of 5.9%. BD/Dexa Bone Density Study IMPRESSION: The patient is considered normal as outlined below according to World [employer] Organization (WHO) criteria with a low fracture risk. There has been worsening of bone density since the previous examination. Reference Information: The T-score is the number of standard deviations above or below the standard which is normal for young adults at their peak bone mineral density. The World Health Organization (WHO) interprets the T-scores as follows: Above -1 Normal bone density Between -1 and -2.5 Osteopenia Equal to / or below -2.5 Osteoporosis As a practical clinical guideline, osteopenia may be graded as follows: Mild -1 through -1.5 Moderate -1.6 through -2.0 Severe -2.1 through -2.4 The Z-score is the number of standard deviations above or below age-matched controls. A Z-score of less than -1.5 would be considered abnormal. References: 1. NIH Osteoporosis and Related Bone Diseases www osteo.org 2. International Society for Clinical Densitometry www iscd.org 3. National Osteoporosis Foundation www nof.org Electronically Signed: Rafal Dos Santos MD at 12:14 EDT ,
== END | disposition home or self-care (01) ==
LOC: OPBD 09:08
PROVIDERS: PCP Internal Medicine; Referring Provider Internal Medicine; Visit Provider Internal Medicine
DX: Z12.31 Encounter for screening mammogram for malignant neoplasm of breast (principal); Z78.0 Asymptomatic menopausal state
CPT/HCPCS: 77067; 77080

== ENCOUNTER 2023-07-05 07:30 | Outpatient (RCR) | payer OTHER, SELFPAY ==
--- NOTE | 2023-06-08 19:02 | HP.PTEVAL ---
Patient's Visit Information Visit Information Visit Information: HERMILO HE is a 67 year old F referred to Physical Therapy by Yamilex Arnold DO with a diagnosis of L tennis elbow. Date of Evaluation: 06/08/23 Physical Therapist: GONZALO Farrell Visit Plan Frequency: 2x /Week Duration: 6 Weeks Plan: 2X/ week for 6 weeks for decrease pain and inflammation, L shoulder PROM/AAROM/AROM, L shoulder strength and postural exercises with HEP Pt will ice at home to decrease inflammation for a few days Subjective Subjective: Couple of weeks ago thought she was getting tennis elbow in L (she is R handed). She does play tennis.. she has pain in L elbow into L shoulder. Even to turn something and to lift her L elbow to get onto the car door at the drive threw at the bank she could not get it up on the car door. She has to use her R arm to put her clothes on. She has no neck pain. She has tingling in her R hand but not her L. She feels that her L arm is weak. Pt can not sleep on her L side due to pain. Pain L elbow: Pain Intensity (Out of 10): 4 Pain Intensity Range: 7 L shoulder pain: Pain Intensity (Out of 10): 0 Pain Intensity Range: 5 Comment: 5 Objective Objective: R handed R 60# and L 55# AROM L flex 60 L ABD 25 degree ER 50, IR L1 R shoulder WFL PROM L tender with abd and end range fw flexion.... ER is painful. Strength: Flex 1.3# (painful), 6.8 ER and 8.2 IR Balance/Special Test Scores Quick DASH Score: 34.0900 Goals Goal 1:: I HEP Goal Time Frame: 6-8 Weeks Goal 2:: Increase L shoulder AROM (at time of eval: AROM L flex 60 L ABD 25 degree ER 50, IR L1 ) Goal 3:: Increase R shoulder strength (Flex 1.3# (painful), 6.8 ER and 8.2 IR). Goal Time Frame: 6-8 Weeks Goal 4:: Be able to return to tennis with no shoulder pain Goal Time Frame: 6-8 Weeks Rehabilitation Potential Rehabilitation Potential: Good Anticipated Interventions Patient/Client Instruction: Educate patient on: Condition For the Purpose of:: To decrease pain, To decrease swelling/inflammation, To increase ROM, To improve nutrient delivery to tissue, To improve muscle performance and motor function, To improve ability to perform ADL's, To increase tolerance to activity/condition/position, To improve performance and independence with ADL's, To decrease level of supervision to perform tasks, To improve ability of physical actions for home/community/work/leisure, To improve health of tissue, To decrease soft tissue restriction and To increase flexibility/ROM Therapeutic Exercise to Include: Strength training, Postural training, Flexibilty training, Neuromotor development, Passive ROM, Active ROM and Scapular Strength/Stabilization For the Purpose of:: To decrease pain, To decrease swelling/inflammation, To increase ROM, To improve nutrient delivery to tissue, To improve muscle performance and motor function, To improve ability to perform ADL's, To increase tolerance to activity/condition/position, To improve performance and independence with ADL's, To improve ability of physical actions for home/community/work/leisure, To improve health of tissue, To decrease soft tissue restriction and To increase flexibility/ROM Manual Therapy Techniques to Include: Passive ROM For the Purpose of:: To increase ROM and To improve nutrient delivery to tissue Cryotherapy (ice pack, ice massage): Yes Ultrasound (thermal/non thermal): Yes For the Purpose of:: To decrease pain, To decrease swelling/inflammation, To increase ROM, To improve nutrient delivery to tissue, To improve muscle performance and motor function, To improve ability to perform ADL's, To increase tolerance to activity/condition/position, To improve performance and independence with ADL's, To improve ability of physical actions for home/community/work/leisure, To improve health of tissue, To decrease soft tissue restriction and To increase flexibility/ROM Text: Thank you for the opportunity to evaluate your patient. For Medicare and Medicare HMO plans, please review the plan of care and approve it. It will need to be FAXED BACK to us at [phone] for Medicare purposes. For Medicare only, by signing this I certify the plan of care. Please let me know if there are questions or concerns regarding this plan of care. Physician Signature: Date:
--- NOTE | 2023-06-30 08:36 | HP.PTREVAL_ITS ---
Re-Evaluation Intro: Yamilex Arnold, DO, It has been my pleasure to treat HERMILO HE over the last 7 visits for L tennis elbow. Please see the progress note below for an update on the physical therapy plan of care! Subjective Subjective: Pt. reports feeling better for about 24 hours after the ionto, but symptoms are about the same today. I talked to her about trialing 1 more time prior to following up with primary PT tomorrow. Objective Objective/Function: Pt. continues to have a marked painful arc with shoulder flexion and abduction. I talked to her about looking into following back up with physician. I want her to see primary PT tomorrow to discuss this further. pt consents. Pt. to continue with supine flexion in pain free ranges to prevent frozen shoulder, but avoid painful movements. Plan Plan Plan: I would recommend that Sanam follow back up with her physician to potentially be referred to ortho at this point in time. Balance/Gait/Functional tests Balance/Special Test Scores Quick DASH Score: 34.0900 Goals Goals Goal 1:: I HEP Goal Time Frame: 6-8 Weeks Goal 2:: Increase L shoulder AROM (at time of eval: AROM L flex 60 L ABD 25 degree ER 50, IR L1 ) Goal 3:: Increase R shoulder strength (Flex 1.3# (painful), 6.8 ER and 8.2 IR). Goal Time Frame: 6-8 Weeks Goal 4:: Be able to return to tennis with no shoulder pain Goal Time Frame: 6-8 Weeks Anticipated Interventions Anticipated Interventions Patient/Client Instruction: Educate patient on: Condition For the Purpose of:: To decrease pain, To decrease swelling/inflammation, To increase ROM, To improve nutrient delivery to tissue, To improve muscle performance and motor function, To improve ability to perform ADL's, To increase tolerance to activity/condition/position, To improve performance and independence with ADL's, To decrease level of supervision to perform tasks, To improve ability of physical actions for home/community/work/leisure, To improve health of tissue, To decrease soft tissue restriction and To increase flexibility/ROM Therapeutic Exercise to Include: Strength training, Postural training, Flexibilty training, Neuromotor development, Passive ROM, Active ROM and Scapular Strength/Stabilization For the Purpose of:: To decrease pain, To decrease swelling/inflammation, To increase ROM, To improve nutrient delivery to tissue, To improve muscle performance and motor function, To improve ability to perform ADL's, To increase tolerance to activity/condition/position, To improve performance and independence with ADL's, To improve ability of physical actions for home/community/work/leisure, To improve health of tissue, To decrease soft tissue restriction and To increase flexibility/ROM Manual Therapy Techniques to Include: Passive ROM For the Purpose of:: To increase ROM and To improve nutrient delivery to tissue Cryotherapy (ice pack, ice massage): Yes Ultrasound (thermal/non thermal): Yes For the Purpose of:: To decrease pain, To decrease swelling/inflammation, To increase ROM, To improve nutrient delivery to tissue, To improve muscle performance and motor function, To improve ability to perform ADL's, To increase tolerance to activity/condition/position, To improve performance and independence with ADL's, To improve ability of physical actions for home/community/work/leisure, To improve health of tissue, To decrease soft tissue restriction and To increase flexibility/ROM Re-Evaluation Ending Re-evaluation ending: Please do not hesitate to contact me at [phone] by phone or Fax: if you have questions or concerns regarding this new plan of care! Sincerely, Fermin Lynch DPT
--- NOTE | 2023-07-05 07:55 | HP.PTDCSUM ---
Discharge Summary D/C summary: It has been my pleasure to treat HERMILO HE referred by Yamilex Arnold DO, with the diagnosis of L tennis elbow for a total of 8 visit(s). Discharge Date: 07/05/23 Please see the following information for a summary of their discharge status. Subjective Subjective: Pt reports that she thinks that PT is making it worse. She is no better. Her Dr has not reviewed the note yet. She did a 26 mile bike ride from holding onto the handle bars she had increase pain. Pain L elbow: Pain Intensity (Out of 10): 0 L shoulder pain: Pain Intensity (Out of 10): 2 Overall Improvement % Improvement: 0 Objective Objective/Function: Pt is no better and frustrated. PT makes things worse. Goals Goal 1:: I HEP Goal Progress: Goal Met Goal 2:: Increase L shoulder AROM (at time of eval: AROM L flex 60 L ABD 25 degree ER 50, IR L1 ) Goal Progress: Not Progressing Goal 3:: Increase R shoulder strength (Flex 1.3# (painful), 6.8 ER and 8.2 IR). Goal Progress: Not Progressing Goal 4:: Be able to return to tennis with no shoulder pain Goal Progress: Not Progressing Plan Plan: DC PT back to . Pt will call again today D/C Information Discharge Comments: DC PT back to d/c sentence: If there are questions or concerns regarding this patient's physical therapy, please feel free to call me at [phone]. Thank you for the referral of this patient. Sincerely, Karime Ariza, MPT Balance/Gait/Functional tests Balance/Special Test Scores Quick DASH Score: 47.7250
== END 2023-07-05 09:02 | disposition home or self-care (01) ==
LOC: PT 07:30
PROVIDERS: PCP Internal Medicine; Referring Provider Family Medicine; Visit Provider Family Medicine
DX: M77.12 Lateral epicondylitis, left elbow (principal)
CPT/HCPCS: 97035; 97110; 97161; 97530

== ENCOUNTER → 2023-07-12 | Outpatient (CLI) | payer OTHER, SELFPAY ==
--- NOTE | 2023-07-12 14:20 | RAD_ITS ---
EXAM: XR LEFT SHOULDER COMPLETE, 2 OR MORE VIEWS CLINICAL INDICATION: left shoulder pain TECHNIQUE: Two or more views of the left shoulder. COMPARISON: No relevant prior studies available. FINDINGS: BONES/JOINTS: Unremarkable. No acute fracture. No subluxation. Normal alignment. Preservation of the joint space. No sclerotic or destructive changes observed. SOFT TISSUES: Unremarkable. No soft tissue swelling or gas. No radiopaque foreign body. RAD/Shoulder min 2 Views IMPRESSION: Negative left shoulder x-rays. Electronically Signed: Won Bacon MD at 4:58 EDT ,
== END | disposition home or self-care (01) ==
LOC: MTRAD 14:10
PROVIDERS: PCP Internal Medicine; Referring Provider Internal Medicine; Visit Provider Internal Medicine
DX: M25.512 Pain in left shoulder (principal)
CPT/HCPCS: 73030

== ENCOUNTER → 2023-07-25 | Outpatient (CLI) | payer OTHER, SELFPAY ==
--- NOTE | 2023-07-25 14:50 | MRI_ITS ---
EXAM: MR LEFT UPPER EXTREMITY WITHOUT INTRAVENOUS CONTRAST, SHOULDER CLINICAL INDICATION: SHOULDER PAIN TECHNIQUE: Multiplanar and multisequence MR images of the left shoulder without intravenous contrast. COMPARISON: No relevant prior studies available. FINDINGS: TENDONS: SUPRASPINATUS: Moderate grade focal myotendinous junction tear of the supraspinatus. INFRASPINATUS: At least moderate tendinosis involving the infraspinatus tendon. SUBSCAPULARIS: Unremarkable. Intact. TERES MINOR: Unremarkable. Intact. BICEPS BRACHII, LONG HEAD: Unremarkable. The extra-articular biceps tendon is in the bicipital groove. The intra-articular biceps tendon is normal. LIGAMENTS: GLENOHUMERAL: Unremarkable. Intact. MUSCLES: Unremarkable. No rotator cuff muscle atrophy. FLUID: At least a moderate amount of fluid in the subacromial/subdeltoid bursa is compatible with bursitis. No joint effusion. CARTILAGE: Unremarkable. Articular cartilage intact. GLENOID LABRUM: Unremarkable. Intact, limited evaluation on non-arthrographic exam. BONES/JOINTS: Moderate hypertrophic degenerative changes above the acromioclavicular joint with mild mass effect on the underlying soft tissues. No fracture. No abnormal bone marrow signal. OTHER SOFT TISSUES: Unremarkable. No rotator interval edema. MRI/Upper Ext Joint Only(Routine) IMPRESSION: 1. Moderate grade focal myotendinous junction tear of the supraspinatus. 2. No full-thickness rotator cuff tears. 3. Subacromial/subdeltoid bursitis. Electronically Signed: Biju Rendon MD at 21:55 EDT ,
== END | disposition home or self-care (01) ==
LOC: MRI 14:37
PROVIDERS: PCP Internal Medicine; Referring Provider Physician Assistant Surgical; Visit Provider Physician Assistant Surgical
DX: S46.012A Strain of muscle(s) and tendon(s) of the rotator cuff of left shoulder, initial encounter (principal); X58.XXXA Exposure to other specified factors, initial encounter
CPT/HCPCS: 73221

== ENCOUNTER 2023-12-09 08:00 | Outpatient (RCR) | payer OTHER, MEDICARE, SELFPAY ==
--- NOTE | 2023-11-15 10:13 | HP.PTEVAL_ITS ---
Patient's Visit Information Visit Information Visit Information: HERMILO HE is a 68 year old F referred to Physical Therapy by Dr. Joey Rose DO with a diagnosis of L RTC strain. Date of Evaluation: 11/08/23 Physical Therapist: Fermin Lynch DPT Visit Plan Frequency: 2x /Week Duration: 4 Weeks Plan: Start with ROM progression, stability exercises of RTC. DN as needs to calm muscle spasming. Subjective Subjective: Pt. is here today for her L shoulder strain. Pt. reports having a tear and having an injection ~3 weeks ago which was helping, but has started to wear off. Pt. is now having pain again. She has been doing some light stretching at home. She was previously playing tennis, but has refrained since her pain has worsened. Pt. reports pain mostly at lateral aspect of her L shoulder deltoid and slightly inferior to that region. She denies N/T. She is having trouble with lifting her arm over her head. Pt. is having trouble sleeping as well. She is hopeful to reduce symptoms in order to get back to all recreational activities without limitations. Pain L shoulder: Pain Intensity (Out of 10): 2 Pain Intensity Range: 1 and 5 Objective Objective: POSTURE: Pt. has descent posture in stance. No marked shoulder height differences. PALPATION: pt. has some mild tenderness at subacromial space. NEURO: pt. has normal DTR and normal sensation in BUEs. ROM: R shoulder: full motion without issues. L shoulder: AROM: flexion 90deg, abd 90deg, functional ER C1 aberrant motion, functional IR L5 increase NW. Pain limiting all end ranges of motion. PROM: flexion 170deg mild increase NW at end range, abd 165deg increase NW at end range, ER at 90deg 80deg increase NW, IR at 90deg of abd 40deg increase NW. MMT: R shoulder: 5/5 throughout. L shoulder: flexion (4/5 8#) increase NW, abd (4/5 7.3#) increase NW, ER (4+/5 12#) increase NW, IR (5/5 18#) NE. Balance/Special Test Scores Quick DASH Score: 25.0000 Goals Goal 1:: LTG: pt. to be I with HEP for shoulder ROM and strengthening. Goal Time Frame: 2-4 Weeks Goal 2:: STG: pt. to sleep throughout the night without increase in symptoms. Goal Time Frame: 2-4 Weeks Goal 3:: LTG: pt. to have increased L shoulder strength by 1/2 grade throughout without increase in L shoulder pain. Goal Time Frame: 2-4 Weeks Goal 4:: LTG: pt. to resume tennis activities without increase in symptoms. Goal Time Frame: 4-6 Weeks Rehabilitation Potential Physical Therapy Diagnosis: Pt. has signs and symptoms consistent with L RTC strain. Pt. does have some limited AROM, but PROM is pretty good. Pt. was doing well with her injection, but now after a few weeks her pain has returned. Pt. would benefit from Pt to work on stability exercises and progressing end ranges of motion. Rehabilitation Potential: Good Anticipated Interventions Patient/Client Instruction: Educate patient on: Condition, Plan of Care, Risk Factors and Benefits of Fitness Program For the Purpose of:: To improve decision making, To facilitate caregiver knowledge, To improve self management, To prevent re-injury and To improve ability to perform tasks related to life management Therapeutic Exercise to Include: Strength training, Power training, Postural training, Flexibilty training, Passive ROM, Active ROM and Scapular Strength/Stabilization For the Purpose of:: To decrease pain, To increase ROM, To improve nutrient delivery to tissue, To increase oxygenation perfusion, To improve muscle performance and motor function, To improve ability to perform ADL's, To decrease soft tissue restriction and To increase flexibility/ROM Manual Therapy Techniques to Include: Mobilization, Functional dry needling and Soft tissue mobilization For the Purpose of:: To decrease pain, To decrease swelling/inflammation, To increase ROM and To improve nutrient delivery to tissue Text: Thank you for the opportunity to evaluate your patient. For Medicare and Medicare HMO plans, please review the plan of care and approve it. It will need to be FAXED BACK to us at [phone] for Medicare purposes. For Medicare only, by signing this I certify the plan of care. Please let me know if there are questions or concerns regarding this plan of care. Physician Signature: Date:
--- NOTE | 2023-12-09 14:00 | HP.PTREVAL ---
Re-Evaluation Intro: Dr. Dakota Alba MD, It has been my pleasure to treat HERMILO HE over the last 4 visits for L RTC strain. Please see the progress note below for an update on the physical therapy plan of care! Subjective Subjective: Pt. reports overall doing well. Pt. reports wanting to have some exercises to work on at home. She did have an injection and is feeling much better. Pt. reports no N/T. She was able to complete tennis the other day with good tolerance. Objective Objective/Function: Pt. is overall doing much better after having an injection. Pt. reports currently no pain. Pt. is to continue with strengthening, but wants to work on this at home. Pt. given HEP of exercises and is to progress with resistances as tolerated. Plan Plan Plan: Pt. to trial exercises on her own for the next few weeks. Pt. to come back in a few weeks if needed. Balance/Gait/Functional tests Balance/Special Test Scores Quick DASH Score: 25.0000 Goals Goals Goal 1:: LTG: pt. to be I with HEP for shoulder ROM and strengthening. Goal Time Frame: 2-4 Weeks Goal Progress: Progressing Goal 2:: STG: pt. to sleep throughout the night without increase in symptoms. Goal Time Frame: 2-4 Weeks Goal Progress: Goal Met Goal 3:: LTG: pt. to have increased L shoulder strength by 1/2 grade throughout without increase in L shoulder pain. Goal Time Frame: 2-4 Weeks Goal Progress: Progressing Goal 4:: LTG: pt. to resume tennis activities without increase in symptoms. Goal Time Frame: 4-6 Weeks Goal Progress: Progressing Anticipated Interventions Anticipated Interventions Patient/Client Instruction: Educate patient on: Condition, Plan of Care, Risk Factors and Benefits of Fitness Program For the Purpose of:: To improve decision making, To facilitate caregiver knowledge, To improve self management, To prevent re-injury and To improve ability to perform tasks related to life management Therapeutic Exercise to Include: Strength training, Power training, Postural training, Flexibilty training, Passive ROM, Active ROM and Scapular Strength/Stabilization For the Purpose of:: To decrease pain, To increase ROM, To improve nutrient delivery to tissue, To increase oxygenation perfusion, To improve muscle performance and motor function, To improve ability to perform ADL's, To decrease soft tissue restriction and To increase flexibility/ROM Manual Therapy Techniques to Include: Mobilization, Functional dry needling and Soft tissue mobilization For the Purpose of:: To decrease pain, To decrease swelling/inflammation, To increase ROM and To improve nutrient delivery to tissue Re-Evaluation Ending Re-evaluation ending: Please do not hesitate to contact me at [phone] by phone or if you have questions or concerns regarding this new plan of care! Sincerely, RAKAN SpringT
--- NOTE | 2024-03-06 10:17 | HP.PTDCNRP_ITS ---
Patient Information Patient Information: HERMILO HE was seen in my office for initial evaluation on 11/08/23. The following Plan of Care was established for this patient: POC Established Initial Frequency: 2x /Week Initial Duration: 4 Weeks Anticipated Interventions Patient/Client Instruction: Educate patient on: Condition, Plan of Care, Risk Factors and Benefits of Fitness Program For the Purpose of:: To improve decision making, To facilitate caregiver knowledge, To improve self management, To prevent re-injury and To improve ability to perform tasks related to life management Therapeutic Exercise to Include: Strength training, Power training, Postural training, Flexibilty training, Passive ROM, Active ROM and Scapular Strength/St abilization For the Purpose of:: To decrease pain, To increase ROM, To improve nutrient delivery to tissue, To increase oxygenation perfusion, To improve muscle performance and motor function, To improve ability to perform ADL's, To decrease soft tissue restriction and To increase flexibility/ROM Manual Therapy Techniques to Include: Mobilization, Functional dry needling and Soft tissue mobilization For the Purpose of:: To decrease pain, To decrease swelling/inflammation, To increase ROM and To improve nutrient delivery to tissue Last Seen Last Seen: This patient was last seen in our office 12/09/23. Pertinent comments regarding their Physical therapy will appear below: Pt. was seen in PT for her shoulder pain. At her last visit, patient wanted exercises to complete on her own. Pt. has not been back to PT is several months and will be DC from PT at this point in time. At this point I will be discontinuing this patient from physical therapy. I would be happy to see this patient again in the future if found appropriate by the physician. Thank you! Fermin Lynch, RAKANT Balance/Gait/Functional tests Balance/Special Test Scores Quick DASH Score: 25.0000
== END 2023-12-09 19:00 | disposition home or self-care (01) ==
LOC: PT 08:00
PROVIDERS: PCP Internal Medicine; Referring Provider Orthopaedic Surgery; Visit Provider Orthopaedic Surgery
DX: S46.012D Strain of muscle(s) and tendon(s) of the rotator cuff of left shoulder, subsequent encounter (principal); M75.52 Bursitis of left shoulder; M75.42 Impingement syndrome of left shoulder
CPT/HCPCS: 97110; 97161

== ENCOUNTER → 2023-12-27 | Outpatient (CLI) | payer OTHER, MEDICARE, SELFPAY ==
--- NOTE | 2023-12-27 10:16 | RAD_ITS ---
STUDY: X-RAY CHEST REASON FOR EXAM: Female, 68 years old. Cough. TECHNIQUE: Frontal and lateral views of the chest. COMPARISON: 03/11/2023. FINDINGS: Stable hyperinflation. There is no demonstrated pleural abnormality. Borderline cardiomegaly unchanged. Normal mediastinum and toñito. Normal visualized pulmonary arteries. Stable aortic tortuosity. Thoracic osteopenia with mild diffuse thoracic spondylosis. Normal visualized ribs, clavicles, and shoulders. No abnormality of the visualized soft tissue structures of the upper abdomen. RAD/Chest PA and Lateral IMPRESSION: Stable chest with no acute or active cardiopulmonary disease. Electronically Signed: John Sosa MD at 11:14 EST ,
--- OUTSIDE RECORDS SUMMARY | 2023-12-27 10:51 | XMS RPT_ITS | CCD ---
Author Name Unknown Address [address] [place] [address] Organization [facility] Care Team Providers Care Project Designer Name Role Phone Dee Alvarez Unavailable Royce Woods Unavailable Patricia Blackman Unavailable Gravius, Tatiana Unavailable Unavailable Slarb, Karime Unavailable Unavailable Unavailable Unavailable Nan Robison Unavailable Patricia Blackman Unavailable Disha Carnes Unavailable Unavailable Antonio DO, Dee Unavailable Juan Daniel Lee Unavailable Dr. Royce Woods Unavailable Patricia Blackman Unavailable Disha Carnes LPN Unavailable Unavailable Anastasiya REED, Tonie Unavailable Unavailable Unavailable Unavailable Fast DO, Rajat A Unavailable Anotnio DO, Dee Unavailable Unavailable Unavailable KANDACE Sandhu LPN Unavailable Unavailable Eli Nunez Unavailable Fast DO, Rajat A Unavailable Gina REED, Kayela Unavailable Unavailable Friend, Dr. Forman Unavailable Fast DO, Rajat A Attending Unavailable Fast DO, Rajat A Consulting Unavailable Dipti SEVERINO, Bear Cuevas Primary Care Provider [phone] Joey Rose Unavailable Fast DO, Rajat A Primary Care Provider [phone] DANNI GURROLA Attending Unavailable RAJAT CUMMINS Primary Care Unavailable BEAR POZO Primary Care Unavailable OZZIE ROBERTSON JR Referring Unavailable BEAR POZO Primary Care Unavailable OZZIE ROBERTSON JR Referring Unavailable BEAR POZO Primary Care Unavailable OZZIE ROBERTSON JR Attending Unavailable Medications Completed/Discontinued Medications Medication Drug Class(es) Dates Sig (Normalized) Sig (Original) ALLERX DOSE PACK, 120-2.5 & 8-2.5MG (Oral Tablet Extended Release) (20 sources) Start: 04-10-2008 End: 04-29-2008 take 1 tablet by mouth twice daily ALLERX DOSE PACK, 120-2.5 & 8-2.5MG (Oral Tablet Extended Release) 1 (one) Tablet ER Twice daily for 0 days Refills: 0 Ordered: 10-Apr-2008 Shannen Bhardwaj RN Start : 10-Apr-2008 End : 29-Apr-2008 Inactive amoxicillin 875 mg oral tablet (16 sources) Penicillin-class Antibacterial Start: 08-26-2021 End: 12-29-2021 take 1 tablet by mouth twice daily Amoxicillin 875 MG Oral Tablet 1 (one) Tablet bid for 0 days Quantity: 20 {Tablet} Refills: 0 Ordered: 29-Dec-2021 Tonie Langford CMA Start : 26-Aug-2021 End : 29-Dec-2021 Inactive azithromycin 250 mg oral tablet (20 sources) Macrolide Antimicrobial Start: 04-19-2022 End: 04-28-2022 take 1 tablet by mouth once daily Zithromax Z-Neymar 250 MG Oral Tablet uad Tablet qd for 0 days Quantity: 1 {Each} Refills: 0 Ordered: 28-Apr-2022 Tonie Langford CMA Start : 19-Apr-2022 End : 28-Apr-2022 Inactive Problems Active Problems Problem Classification Problem Date Documented Da te Episodic/Chronic Administrative/social admission (20 sources) Patient encounter status; Translations: [Physical exam for work or camp (Renamed from Encounter for school health examination)] 12-08-2020 Episodic Anxiety disorders (20 sources) Anxiety state, unspecified; Translations: [ANXIETY STATE NOS] Resolved: 08-25-2010 08-25-2010 Chronic Past or Other Problems Problem Classification Problem Date Documented Da te Episodic/Chronic Other non-traumatic joint disorders (11 sources) Pain in left knee; Translations: [Knee pain, left] 04-04-2020 Other screening for suspected conditions (not mental disorders or infectious disease) (20 sources) Mammography abnormal; Translations: [Breast neoplasm screening status] Onset: 06-03-2008 Resolved: 08-25-2010 08-25-2010 Episodic Results Test Name Value Interpretation Reference Range Facil ity Vital Signs Date Time Vital Sign Value Performing Clinician Facility 2023 10:29-0400 Body weight 63.05 kg Ozzie Robertson Jr., MD Work Phone: [facility] 2023 10:29-0400 Diastolic blood pressure 89 mm[Hg] Ozzie Robertson Jr., MD Work Phone: [facility] 2023 10:29-0400 Heart rate 64 /min Ozzie Robertson Jr., MD Work Phone: [facility] 2023 10:29-0400 Respiratory rate 18 /min Ozzie Robertson Jr., MD Work Phone: [facility] 2023 10:29-0400 SaO2% (BldA) [Mass fraction] 96 % Ozzie Robertson Jr., MD Work Phone: [facility] 2023 10:29-0400 Systolic blood pressure 131 mm[Hg] Ozzie Robertson Jr., MD Work Phone: [facility] 07-12-2023 13:36-0400 Body height 162.56 cm Tonie Langford CMA [facility] Work Phone: 07-12-2023 13:36-0400 Body mass index (BMI) [Ratio] 24.44 kg/m2 Tonie Langford CMA [facility] Work Phone: 07-12-2023 13:36-0400 Body surface area Derived from formula 1.69 m2 Tonie Langford CMA [facility] Work Phone: 07-12-2023 13:36-0400 Body temperature 98.7 [degF] Tonie Langford CUT IN WORKER [facility]; [facility] Work Phone: Encounters Encounter Date Encounter Type Care Provider Facility Start: 11-14-2023 Telephone encounter Danni Alberto decker PA-C Work Phone: Neurology Start: 11-10-2023 Telephone encounter Danni Alberto decker PA-C Work Phone: Neurology Procedures Date Procedure Procedure Detail Performing Clinician Start: 10-04-2023 3d rendering w/interp&postproc diff work station Ozzie Robertson MD Work Phone: Start: 10-04-2023 Mri brain brain stem w/o contrast material Ozzie Robertson MD Work Phone: Start: 07-12-2023 End: 07-13-2023 Shoulder min 2 Views Procedure Note: See Note; NOTES: [facility] Imaging Services [address] [place] [address] Shoulder min 2 Views MR#: [id number] Acct: [id number] Name: ERIN DYSON APOLLO Rep #: [id number] : 1955 F 67 From: Won Daniels PCP: Dr. Rajat Cummins DO Status: REG CLI Study: Shoulder min 2 Views Date of Exam: 07/12/23 Exam# [id number] Ordering Dr: Rajat Cummins DO EXAM: XR LEFT SHOULDER COMPLETE, 2 OR MORE VIEWS CLINICAL INDICATION: left shoulder pain TECHNIQUE: Two or more views of the left shoulder. COMPARISON: No relevant prior studies available. FINDINGS: BONES/JOINTS: Unremarkable. No acute fracture. No subluxation. Normal alignment. Preservation of the joint space. No sclerotic or destructive changes observed. SOFT TISSUES: Unremarkable. No soft tissue swelling or gas. No radiopaque foreign body. RAD/Shoulder min 2 Views IMPRESSION: Negative left shoulder x-rays. Electronically Signed: Won Bacon MD at 4:58 EDT , CC: Dr. Rajat Cummins DO Rewind Operator: Signed Rajat Cummins DO Work Phone: Start: 07-05-2023 End: 07-05-2023 PT D/C Summary (1) Procedure Note: See Note; NOTES: [facility] [address] [place] [address] / REHABILITATION SERVICES DISCHARGE SUMMARY MR#: [id number] Acct: [id number] Name: ERIN DYSON Rep #: [id number] : 1955 67 From: Karime SÁNCHEZ Referring DrChau: Yamilex Arnold DO Status: REG RCR Insurance: [email or web address] SELF PAY INSURANCE Discharge Summary D/C summary: It has been my pleasure to treat ERIN DYSON referred by Yamilex Arnold DO, with the diagnosis of L tennis elbow for a total of 8 visit(s). Discharge Date: 07/05/23 Please see the following information for a summary of their discharge status. Subjective Subjective: Pt reports that she thinks that PT is making it worse. She is no better. Her Dr has not reviewed the note yet. She did a 26 mile bike ride from holding onto the handle bars she had increase pain. Pain L elbow: Pain Intensity (Out of 10): 0 L shoulder pain: Pain Intensity (Out of 10): 2 Overall Improvement % Improvement: 0 Objective Objective/Function: Pt is no better and frustrated. PT makes things worse. Goals Goal 1:: I HEP Goal Progress: Goal Met Goal 2:: Increase L shoulder AROM (at time of eval: AROM L flex 60 L ABD 25 degree ER 50, IR L1 ) Goal Progress: Not Progressing Goal 3:: Increase R shoulder strength (Flex 1.3# (painful), 6.8 ER and 8.2 IR). Goal Progress: Not Progressing Goal 4:: Be able to return to tennis with no shoulder pain Goal Progress: Not Progressing Plan Plan: KELSEY PT back to Pt will call again today D/C Information Discharge Comments: DC PT back to d/c sentence: If there are questions or concerns regarding this patient's physical therapy, please feel free to call me at [phone]. Thank you for the referral of this patient. Sincerely, GONZALO Farrell Balance/Gait/Functional tests Balance/Special Test Scores Quick DASH Score: 47.7250 <Electronically signed by Karime Ariza MPT> 07/05/23 0755 CC: Dr. Rajat Cummins DO; Yamilex Arnold DO Signed Rajat Cummins DO Work Phone: Start: 06-30-2023 End: 06-30-2023 Re-Evaluation - PT (1) Procedure Note: See Note; NOTES: [facility] [address] [place] [address]. [address] [place] [address] / REEVALUATION / MEDICARE RECERTIFICATION PHYSICAL THERAPY MR#: [id number] Acct: [id number] Name: ERIN YDSON Rep #: [id number] : 1955 67 From: Fermin Lynch DPT Referring Dr.: Yamilex Arnold DO Status:REG RCR Insurance: [email or web address]/[email or web address] SELF PAY INSURANCE Re-Evaluation Intro: Yamilex Arnold DO, It has been my pleasure to treat ERIN DYSON over the last 7 visits for L tennis elbow. Please see the progress note below for an update on the physical therapy plan of care! Subjective Subjective: Pt. reports feeling better for about 24 hours after the ionto, but symptoms are about the same today. I talked to her about trialing 1 more time prior to following up with primary PT tomorrow. Objective Objective/Function: Pt. continues to have a marked painful arc with shoulder flexion and abduction. I talked to her about looking into following back up with physician. I want her to see primary PT tomorrow to discuss this further. pt consents. Pt. to continue with supine flexion in pain free ranges to prevent frozen shoulder, but avoid painful movements. Plan Plan Plan: I would recommend that Sanam follow back up with her physician to potentially be referred to ortho at this point in time. Balance/Gait/Functional tests Balance/Special Test Scores Quick DASH Score: 34.0900 Goals Goals Goal 1:: I HEP Goal Time Frame: 6-8 Weeks Goal 2:: Increase L shoulder AROM (at time of eval: AROM L flex 60 L ABD 25 degree ER 50, IR L1 ) Goal 3:: Increase R shoulder strength (Flex 1.3# (painful), 6.8 ER and 8.2 IR). Goal Time Frame: 6-8 Weeks Goal 4:: Be able to return to tennis with no shoulder pain Goal Time Frame: 6-8 Weeks Anticipated Interventions Anticipated Interventions Patient/Client Instruction: Educate patient on: Condition For the Purpose of:: To decrease pain, To decrease swelling/inflammation, To increase ROM, To improve nutrient delivery to tissue, To improve muscle performance and motor function, To improve ability to perform ADL's, To increase tolerance to activity/condition/position , To improve performance and independence with ADL's, To decrease level of supervision to perform tasks, To improve ability of physical actions for home/community/work/leisure , To improve health of tissue, To decrease soft tissue restriction and To increase flexibility/ROM Therapeutic Exercise to Include: Strength training, Postural training, Flexibilty training, Neuromotor development, Passive ROM, Active ROM and Scapular Strength/Stabilization For the Purpose of:: To decrease pain, To decrease swelling/inflammation, To increase ROM, To improve nutrient delivery to tissue, To improve muscle performance and motor function, To improve ability to perform ADL's, To increase tolerance to activity/condition/position , To improve performance and independence with ADL's, To improve ability of physical actions for home/community/work/leisure , To improve health of tissue, To decrease soft tissue restriction and To increase flexibility/ROM Manual Therapy Techniques to Include: Passive ROM For the Purpose of:: To increase ROM and To improve nutrient delivery to tissue Cryotherapy (ice pack, ice massage): Yes Ultrasound (thermal/non thermal): Yes For the Purpose of:: To decrease pain, To decrease swelling/inflammation, To increase ROM, To improve nutrient delivery to tissue, To improve muscle performance and motor function, To improve ability to perform ADL's, To increase tolerance to activity/condition/position , To improve performance and independence with ADL's, To improve ability of physical actions for home/community/work/leisure , To improve health of tissue, To decrease soft tissue restriction and To increase flexibility/ROM Re-Evaluation Ending Re-evaluation ending: Please do not hesitate to contact me at [phone] by phone or if you have questions or concerns regarding this new plan of care! Sincerely, Fermin Lynch, DPT <Electronically signed by Fermin Lynch DPT> 06/30/23 0836 CC: Dr. Rajat Cummins DO; Yamilex Arnold DO CLS Signed For Medicare only, by signing this I certify the plan of care. _ Physicians Signature Date Rajat Cummins DO Work Phone: Start: 06-08-2023 End: 06-08-2023 Inital Evaluation (1) - PT Procedure Note: See Note; NOTES: [facility] [address] [place] [address] [address] [place] [address] / REHABILITATION SERVICES INITIAL EVALUATION MR#: [id number] Acct: [id number] Name: ERIN DYSON Rep #: [id number] : 1955 67 From: Karime SÁNCHEZ Referring DrChau: Yamilex Arnold DO Status: REG RCR Insurance: [email or web address]/[facility] SELF PAY INSURANCE Patient's Visit Information Visit Information Visit Information: ERIN DYSON is a 67 year old F referred to Physical Therapy by Yamilex Arnold DO with a diagnosis of L tennis elbow. Date of Evaluation: 06/08/23 Physical Therapist: GONZALO Farrell Visit Plan Frequency: 2x /Week Duration: 6 Weeks Plan: 2X/ week for 6 weeks for decrease pain and inflammation, L shoulder PROM/AAROM/AROM, L shoulder strength and postural exercises with HEP Pt will ice at home to decrease inflammation for a few days Subjective Subjective: Couple of weeks ago thought she was getting tennis elbow in L (she is R handed). She does play tennis.. she has pain in L elbow into L shoulder. Even to turn something and to lift her L elbow to get onto the car door at the drive threw at the bank she could not get it up on the car door. She has to use her R arm to put her clothes on. She has no neck pain. She has tingling in her R hand but not her L. She feels that her L arm is weak. Pt can not sleep on her L side due to pain. Pain L elbow: Pain Intensity (Out of 10): 4 Pain Intensity Range: 7 L shoulder pain: Pain Intensity (Out of 10): 0 Pain Intensity Range: 5 Comment: 5 Objective Objective: R handed R 60# and L 55# AROM L flex 60 L ABD 25 degree ER 50, IR L1 R shoulder WFL PROM L tender with abd and end range fw flexion.... ER is painful. Strength: Flex 1.3# (painful), 6.8 ER and 8.2 IR Balance/Special Test Scores Quick DASH Score: 34.0900 Goals Goal 1:: I HEP Goal Time Frame: 6-8 Weeks Goal 2:: Increase L shoulder AROM (at time of eval: AROM L flex 60 L ABD 25 degree ER 50, IR L1 ) Goal 3:: Increase R shoulder strength (Flex 1.3# (painful), 6.8 ER and 8.2 IR). Goal Time Frame: 6-8 Weeks Goal 4:: Be able to return to tennis with no shoulder pain Goal Time Frame: 6-8 Weeks Rehabilitation Potential Rehabilitation Potential: Good Anticipated Interventions Patient/Client Instruction: Educate patient on: Condition For the Purpose of:: To decrease pain, To decrease swelling/inflammation, To increase ROM, To improve nutrient delivery to tissue, To improve muscle performance and motor function, To improve ability to perform ADL's, To increase tolerance to activity/condition/position , To improve performance and independence with ADL's, To decrease level of supervision to perform tasks, To improve ability of physical actions for home/community/work/leisure , To improve health of tissue, To decrease soft tissue restriction and To increase flexibility/ROM Therapeutic Exercise to Include: Strength training, Postural training, Flexibilty training, Neuromotor development, Passive ROM, Active ROM and Scapular Strength/Stabilization For the Purpose of:: To decrease pain, To decrease swelling/inflammation, To increase ROM, To improve nutrient delivery to tissue, To improve muscle performance and motor function, To improve ability to perform ADL's, To increase tolerance to activity/condition/position , To improve performance and independence with ADL's, To improve ability of physical actions for home/community/work/leisure , To improve health of tissue, To decrease soft tissue restriction and To increase flexibility/ROM Manual Therapy Techniques to Include: Passive ROM For the Purpose of:: To increase ROM and To improve nutrient delivery to tissue Cryotherapy (ice pack, ice massage): Yes Ultrasound (thermal/non thermal): Yes For the Purpose of:: To decrease pain, To decrease swelling/inflammation, To increase ROM, To improve nutrient delivery to tissue, To improve muscle performance and motor function, To improve ability to perform ADL's, To increase tolerance to activity/condition/position , To improve performance and independence with ADL's, To improve ability of physical actions for home/community/work/leisure , To improve health of tissue, To decrease soft tissue restriction and To increase flexibility/ROM Text: Thank you for the opportunity to evaluate your patient. For Medicare and Medicare HMO plans, please review the plan of care and approve it. It will need to be FAXED BACK to us at [phone] for Medicare purposes. For Medicare only, by signing this I certify the plan of care. Please let me know if there are questions or concerns regarding this plan of care. Physician Signature: Date: <Electronically signed by Karime Ariza MPT> 06/08/23 1902 CC: Dr. Rajat Cummins DO; Yamilex Arnold DO Signed Rajat Cummins DO Work Phone: Start: 04-20-2023 End: 04-27-2023 Dexa Bone Density Study Procedure Note: See Note; NOTES: [facility] Imaging Services [address] [place] [address] Dexa Bone Density Study MR#: [id number] Acct: [id number] Name: ERIN DYSON APOLLO Rep #: [id number] : 1955 F 67 From: Rafal rosas MD PCP: Dr. Rajat Cummins DO Status: [facility] Study: Dexa Bone Density Study Date of Exam: 04/20/23 Exam# [id number] Ordering Dr: Rajat Cummins DO STUDY: DUAL ENERGY X-RAY ABSORPTIOMETRY / DXA REASON FOR EXAM: Female, 67 years old. [id number] TECHNIQUE: Bone Mineral Density (BMD) measurements of lumbar spine and bilateral hips were obtained. COMPARISON: Comparison is made with prior study dated April 10, 2020. FINDINGS: Lumbar Spine (L1-L4): g/cm2 (0.989) / T-score (-0.5) / Z-score (1.5) Findings are suggestive of normal bone density with a low fracture risk. Left Femur Total: g/cm2 (0.939) / T-score (0.0) / Z-score (1.4) Left Femoral Neck: g/cm2 (0.806) / T-score (-0.4) / Z-score (1.3) Right Femur Total: g/cm2 (0.875) / T-score (-0.6) / Z-score (0.9) Right Femoral Neck: g/cm2 (0.738) / T-score (-1.0) / Z-score (0.7) The T-Scores on the most recent prior examination were: Lumbar Spine (L1-L4): There has been worsening of bone density since the previous examination. Left Femur Total: which represents a worsening of 1.8%. Right Femur Total: which represents a worsening of 5.9%. BD/Dexa Bone Density Study IMPRESSION: The patient is considered normal as outlined below according to World [employer] Organization (WHO) criteria with a low fracture risk. There has been worsening of bone density since the previous examination. Reference Information: The T-score is the number of standard deviations above or below the standard which is normal for young adults at their peak bone mineral density. The World Health Organization (WHO) interprets the T-scores as follows: Above -1 Normal bone density Between -1 and -2.5 Osteopenia Equal to / or below -2.5 Osteoporosis As a practical clinical guideline, osteopenia may be graded as follows: Mild -1 through -1.5 Moderate -1.6 through -2.0 Severe -2.1 through -2.4 The Z-score is the number of standard deviations above or below age-matched controls. A Z-score of less than -1.5 would be considered abnormal. References: 1. NIH Osteoporosis and Related Bone Diseases www osteo.org 2. International Society for Clinical Densitometry www iscd.org 3. National Osteoporosis Foundation www nof.org Electronically Signed: Rafal Dos Santos MD at 12:14 EDT , CC: Dr. Rajat Cummins DO Rewind Operator: Signed Rajat Cummins DO Work Phone: Start: 04-20-2023 End: 04-21-2023 SCREENING MAMM (CAD), BILAT Procedure Note: See Note; NOTES: [facility] Imaging Services [address] [place] [address] SCREENING MAMM (CAD), BILAT MR#: [id number] Acct: [id number] Name: NERIERIN Rep #: [id number] : 1955 F 67 From: Servando Thomason DO PCP: Dr. Rajat Cummins DO Status: [facility] Study: SCREENING MAMM (CAD), BILAT Date of Exam: 03/29 03/20 Exam# [id number] Ordering Dr: Rajat Cummins DO MAMMOGRAPHY - BILATERAL SCREENING REASON FOR EXAM: Female, 67 years old. Routine annual screening examination. PERTINENT HISTORY: Grandmother with breast cancer. Remote left breast stereotactic biopsy. TECHNIQUE: Digital bilateral breast arti (3D mammographic acquisition) in the CC and MLO projections. 2-D mediolateral oblique (MLO) and craniocaudad (CC) views of both breasts were obtained. CAD: Full Field Digital Mammography with Computer Added Detection was performed. COMPARISON: Mammogram from 04/06/2022, 02/24/2021. FINDINGS: Breast Composition: The breasts are extremely dense, which lowers the sensitivity of mammography. There are no dominant masses or suspicious calcifications. Stable biopsy marker in the left breast. No other significant abnormalities are identified. There has been no significant change since the prior study. BI/SCREENING MAMM (CAD), BILAT IMPRESSION: Stable bilateral screening mammogram. Yearly follow-up mammogram recommended. (A) ASSESSMENT CATEGORY: BIRADS Category 2: Benign. A letter regarding these results will be sent to the patient by the facility within 30 days. Approximately 10% of breast cancers are not detected by mammography. A normal mammogram should not delay biopsy of a clinically suspicious abnormality. Electronically Signed: Servando Thomason DO at 11:30 EDT , CC: Dr. Rajat Cummins DO Rewind Operator: Signed Rajat Cummins DO Work Phone: Start: 03-11-2023 End: 03-11-2023 Chest PA and Lateral Procedure Note: See Note; NOTES: [facility] Imaging Services [address] [place] [address] Chest PA and Lateral MR#: [id number] Acct: [id number] Name: ERIN DYSON APOLLO Rep #: [id number] : 1955 F 67 From: Mary jefferson MD PCP: Dr. Rajat Cummins DO Status: REG CLI Study: Chest PA and Lateral Date of Exam: 03/11/23 Exam# [id number] Ordering Dr: Agustin Mooney HISTORY: Persistent cough. TECHNIQUE: XR Chest 2 Views. COMPARISON: 04/24/2021. FINDINGS: CARDIOMEDIASTINAL BORDERS: Cardiac silhouette within normal limits in size. Mediastinal contour unremarkable with calcification of the aortic knob. LUNGS: Radiographically clear. PLEURA: No pleural effusion or pneumothorax seen. OSSEOUS STRUCTURES: Unremarkable. RAD/Chest PA and Lateral IMPRESSION: No acute cardiopulmonary process identified. Electronically Signed: Mary Dia MD at 9:18 EDT Reading Location ID and State: [facility] / [place] Tel , Service support , CC: ANDRÉS Mooney; Dr. Rajat Cummins DO Rewind Operator: Signed Rajat Cummins DO Work Phone: Start: 03-11-2023 End: 03-11-2023 Urgent Care Visit Report Procedure Note: See Note; NOTES: [facility] [address] [place] [address] [address] [place] [id number] OFFICE VISIT Date of Service: 03/11/23 MR#: [id number] Acct: [id number] Name: ERIN DYSON APOLLO Rep #: [id number] : 1955 Provider: ANDRÉS Mooney Age/Sex: 67/F Location: [facility] Status: Signed Intake Vital Signs 03/11/23 08:50 BP 102/74 Blood Pressure Location Lt brachial Position Sitting Respiration 15 Pulse 57 L Pulse Source Monitor Temp 98.0 F Temp Source Temporal Pulse Oximetry (%) 97 Oxygen Delivery Method room air Intake Visit Reasons: CHEST CONGESTION Chief Complaint: Cough Is patient in pain?: No Allergies No Known Allergies Allergy (Verified 03/11/23 08:49) Medications cholecalciferol (vitamin D3) 50 mcg (2,000 unit) capsule 2,000 unit PO QDAY 03/07/18 [History Confirmed 03/11/23] calcium carbonate 600 mg calcium (1,500 mg) tablet 600 mg PO DAILY 09/02/20 [History Confirmed 03/11/23] zinc gluconate 50 mg tablet 50 mg PO DAILY 12/28/22 [History Confirmed 03/11/23] ascorbate calcium (vitamin C) 500 mg tablet 500 mg PO DAILY 03/11/23 [History Confirmed 03/11/23] azithromycin 250 mg tablet See Rx Instructions PO .COMPLEX #6 tabs 03/11/23 [Rx Confirmed 03/11/23] benzonatate 100 mg capsule 200 mg PO TID PRN cough #30 caps 03/11/23 [Rx Confirmed 03/11/23] methylprednisolone 4 mg tablets in a dose pack (Medrol (Neymar)) 4 mg PO PER PKG DIR 6 days #21 tabs 03/11/23 [Rx Confirmed 03/11/23] omega 0-hzm-ucv-fish oil 60 mg-90 mg-500 mg capsule (Fish Oil) 1 cap PO DAILY 03/11/23 [History Confirmed 03/11/23] PFSH Medical History Alcohol use Cystocele Gastric reflux Hemorrhoid History of echocardiogram History of stress test Non-smoker Post-menopausal Shingles Wears glasses Surgical History bilateral sacrospinous ligament fixation H/O bilateral salpingo-oophorectomy H/O cystoscopy H/O total vaginal hysterectomy History of colonoscopy ( 2018) History of Mohs micrographic surgery for skin cancer S/P bunionectomy stereotactic biopsy Family History Grandmother Breast cancer Mother Hypertension COPD (chronic obstructive pulmonary disease) Social History Smoking Status: Never smoker alcohol intake: current alcohol intake frequency: a few times a week Alcohol type: wine details: 2-3 glasses per week substance use type: does not use caffeine: Yes Type: coffee Number of servings: 6 what type of physical activity do you participate in: walking and weight training frequency: 5-6 times per week seatbelt use: always do you feel safe at home: Yes additional social history: - Oftw-Vkrd-dxuwxyqt 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 Patient states that cough and congestion has not improved and has been interrupting her sleep. She denies fever, chills, sweats. No hemoptysis, shortness of breath or difficulty breathing. No loss of taste or smell. No other associated symptoms or alleviating/aggravating factors. ROS Const Constitutional: No other (6 system ROS completed with pertinent findings in the HPI otherwise normal.) Exam Const General: cooperative and well developed HENMT Head: normal to inspection and atraumatic Ears: hearing grossly normal bilaterally Nose: nasal discharge clear Face and sinus: normal facial exam Mouth: oral mucosae normal Throat: abnormal tonsil bilaterally hypertrophy 1+ Resp Effort Inspection: normal respiratory effort and no audible wheezes Auscultation: Bilateral: Clear to Auscultation Cardio Palpation: normal PMI Rate: regular rate Rhythm: regular rhythm Neuro General: patient alert and CN's II-XI intact bilaterally Psych Appearance: grossly normal Mental Status: mental status grossly normal Coding Level of Care Code Off vis,est,level 4 Diagnoses Acute bronchitis J20.9 Assessment and Plan Assessment and Plan (1) Acute bronchitis: Status: Acute Orders: Orders Chest PA and Lateral Today J20.9 - Acute bronchitis, unspecified Medications: New azithromycin take 500 mg today (day 1), then 250 mg for 4 days (days 2-5) PO 6 tabs 0RF benzonatate 200 mg (2 x 100 mg) PO TID PRN 30 caps 0RF cough methylprednisolone (Medrol (Neymar)) 4 mg PO PER PKG DIR 21 tabs 0RF 6 days Plan Chest x-ray read and interpreted myself finding no acute cardiopulmonary abnormalities, awaiting radiology interpretation at time of patient discharge. Azithromycin and Medrol Dosepak as well as benzonatate as prescribed today. Encouraged to get plenty of rest, drink lots of clear liquids, and use Tylenol or Ibuprofen (unless contraindicated) for fever and comfort. Patient also educated on other symptomatic management techniques. To be seen in 7-10 days if no improvement; sooner if worsening of symptoms. Patient advised of potential red flags and when appropriate to report to the ED. Patient verbalized understanding and agreement with all the above. 03/11/23 0952 <Electronically signed by Agustin BOWEN> Date Agustin BOWEN Cosigner Signature: Date (if applicable) CC: Rajat Cummins DO Work Phone: Start: 02-08-2023 End: 02-08-2023 Gastroenterology Visit Report Procedure Note: See Note; NOTES: [facility] [address] [address] OFFICE VISIT Date of Service: 02/08/23 MR#: [id number] Acct: [id number] Name: ERIN DYSON APOLLO Rep #: [id number] : 1955 Provider: Dickson Oro DO Age/Sex: 67/F [place] [facility] [place] Status: Signed Intake Intake Visit Reasons: HEMORRHOID BANDING Allergies No Known Allergies Allergy (Verified 12/28/22 15:09) [facility] Medical History (Updated 02/08/23 @ 11:11 by Jesika Mooney) Alcohol use Cystocele Gastric reflux Hemorrhoid History of echocardiogram History of stress test Non-smoker Post-menopausal Shingles Wears glasses Surgical History (Updated 06/17/22 @ 11:07 by Disha Ramos) bilateral sacrospinous ligament fixation H/O bilateral salpingo-oophorectomy H/O cystoscopy H/O total vaginal hysterectomy History of colonoscopy ( 2018) History of Mohs micrographic surgery for skin cancer S/P bunionectomy stereotactic biopsy Family History Grandmother Breast cancer Mother Hypertension COPD (chronic obstructive pulmonary disease) Social History (Updated 12/28/22 @ 15:14 by Hedy Bell) Smoking Status: Never smoker alcohol intake: current alcohol intake frequency: a few times a week Alcohol type: wine details: 2-3 glasses per week substance use type: does not use caffeine: Yes Type: coffee Number of servings: 6 what type of physical activity do you participate in: walking and weight training frequency: 5-6 times per week seatbelt use: always do you feel safe at home: Yes additional social history: - Pnob-Xgdw-zvqzuhtk 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 to discuss symptomatic hemorrhoids with noted Grade 2-3 internal hemorrhoids during colonoscopy 8. Hemorrhoids causing difficulty with cleanliness following defecation. Recommendation made for surgical hemorrhoidectomy to treat prolapsing internal hemorrhoids and lax external skin. Surgical option not pursued. ? Colonoscopy 07.24.21 non-thrombosed internal hemorrhoids with prolapse requiring manual replacement into anal canal; diverticulosis. No specimens collected. *BGI established 3. She does have issue with hemorrhoids that prolapse and cause difficulty with cleanliness; no pain noted. BM are regular with several in a day with complete evacuation. ROS Const Constitutional: No other (6 system ROS completed with pertinent findings in the HPI otherwise normal.) Exam Const General: cooperative and well developed HENMT Head: normal to inspection and atraumatic Ears: hearing grossly normal bilaterally Nose: nasal discharge clear Face and sinus: normal facial exam Mouth: oral mucosae normal Throat: abnormal tonsil bilaterally hypertrophy 1+ Resp Effort Inspection: normal respiratory effort and no audible wheezes Auscultation: Bilateral: Clear to Auscultation Cardio Palpation: normal PMI Rate: regular rate Rhythm: regular rhythm Neuro General: patient alert and CN's II-XI intact bilaterally Psych Appearance: grossly normal Mental Status: mental status grossly normal Office Procedures Hemorrhoid Provider Documentation Provider Documentation: Hemorrhoid banding performed during office visit today. four hemorrhoids banded without pain or difficulty. Minimal bleeding noted. Follow up instruction provided. LOT [id number] Alert Dimension Stone Quarry Supervisor Alert Billing: Yes Hemorrhoid 26885 Banding Quality Reporting Tobacco Screening ([facility] 138) Smoking Status: Never smoker Assessment and Plan Assessment and Plan (1) Hemorrhoid: Status: Chronic Plan: We performed hemorrhoid banding with a short shot ligator in the office. 4 bands were placed. She had a little bit of bleeding after procedure. She has no pain. She was told to follow-up on a as needed basis. Coding Level of Care Code Off vis,new,level 3 Diagnoses Hemorrhoid K64.9 CPT Codes Hemorrhoid - Hemorrhoid: 53026 Banding (00880) 02/08/23 1717 <Electronically signed by Dickson Oro DO> Date Dickson Oro DO Cosigner Signature: Date (if applicable) CC: Rajat Cummins DO Work Phone: Start: 04-19-2022 End: 04-19-2022 Office Visit Report Comments: See Note; NOTES: [facility] [address] [place] [address] [place] [address] OFFICE VISIT Date of Service: 04/19/22 MR#: [id number] Acct: [id number] Patient: ERIN DYSON APOLLO Rep #: [id number] : 1955 Provider: ANDRÉS Mooney Age/Sex: 66/F [place] [facility] [place] Status: Signed Intake Intake Visit Reasons: PCR COVID/SYMPTOMATIC Chief Complaint: toenail fungus Allergies No Known Allergies Allergy (Verified 07/24/21 05:48) Results POC ASHER Covid FluAB PCR POC Asher Covid PCR Detected Last Edit by Sanjuana Domínguez on 04/19/22 07:46 POC ASHER FLU NOT DETECTED FLU A B Last Edit by Sanjuana Domínguez on 04/19/22 07:46 04/19/22 1120 <Electronically signed by Agustin BOWEN> Date Agustin BOWEN Cosigner Signature: Date (if applicable) CC: Rajat Cummins DO Work Phone: Start: 04-19-2022 End: 04-19-2022 Urgent Care Visit Report Comments: See Note; NOTES: [facility] [address] [place] [address] OFFICE VISIT Date of Service: 04/19/22 MR#: [id number] Acct: [id number] Name: ERIN DYSON APOLLO Rep #: [id number] : 1955 Provider: ANDRÉS Mooney Age/Sex: 66/F Location: [facility] [place] Status: Signed Intake Vital Signs 04/19/22 07:27 Height 5 ft 6 in Weight: 145 lb BMI 23.3 BP 122/68 H Blood Pressure Location Lt brachial Position Sitting Respiration 14 Pulse 62 Pulse Source Monitor Temp 99.8 F H Temp Source Temporal Pulse Oximetry (%) 97 Oxygen Delivery Method room air Intake Visit Reasons: PCR COVID/SYMPTOMATIC Chief Complaint: toenail fungus Allergies No Known Allergies Allergy (Verified 07/24/21 05:48) [facility] Medical History (Updated 04/19/22 @ 08:00 by ANDRÉS Simmons) Alcohol use Cystocele Gastric reflux Hemorrhoid History of echocardiogram History of stress test Non-smoker Post-menopausal Wears glasses Surgical History bilateral sacrospinous ligament fixation H/O bilateral salpingo-oophorectomy H/O cystoscopy H/O total vaginal hysterectomy History of colonoscopy ( 2018) History of Mohs micrographic surgery for skin cancer S/P bunionectomy stereotactic biopsy Family History Grandmother Breast cancer Mother Hypertension COPD (chronic obstructive pulmonary disease) Social History Smoking Status: Never smoker alcohol intake: current alcohol intake frequency: a few times a week Alcohol type: wine details: 2-3 glasses per week substance use type: does not use caffeine: Yes what type of physical activity do you participate in: walking and weight training frequency: 5-6 times per week seatbelt use: always do you feel safe at home: Yes additional social history: - Sxts-Tcrk-hfoqrvtj 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 Patient denies hemoptysis, shortness of breath or difficulty breathing. No fever, chills, sweats. Patient did have an elevated temperature today of 99.8 ???F in the office. No nausea, vomiting, diarrhea. No other associated symptoms or alleviating/aggravating factors. ROS Const Constitutional: No other (6 system ROS completed with pertinent findings in the HPI otherwise normal.) Exam Const General: cooperative and well developed HENMT Head: normal to inspection and atraumatic Ears: hearing grossly normal bilaterally Nose: nasal discharge clear Face and sinus: normal facial exam Mouth: oral mucosae normal Throat: abnormal tonsil bilaterally hypertrophy 1+ Resp Effort Inspection: normal respiratory effort and no audible wheezes Auscultation: Bilateral: Clear to Auscultation Cardio Palpation: normal PMI Rate: regular rate Rhythm: regular rhythm Neuro General: patient alert and CN's II-XI intact bilaterally Psych Appearance: grossly normal Mental Status: mental status grossly normal Results POC ASHER Covid FluAB PCR POC Asher Covid PCR Detected Last Edit by Sanjuana Domínguez on 04/19/22 07:46 POC ASHER FLU NOT DETECTED FLU A B Last Edit by Sanjuana Domínguez on 04/19/22 07:46 Coding Level of Care Code Off vis,new,level 3 Diagnoses COVID-19 U07.1 Assessment and Plan Assessment and Plan (1) COVID-19: Status: Acute Plan - Agustin Vinicio PA, PA: Patient tested positive for COVID in the office today. Patient refused any type of treatment for COVID after discussion with patient. Encouraged to get plenty of rest, drink lots of clear liquids, and use Tylenol or Ibuprofen (unless contraindicated) for fever and comfort. Patient also educated on other symptomatic management techniques. To be seen in 7-10 days if no improvement; sooner if worsening of symptoms. Patient advised of potential red flags and when appropriate to report to the ED. Patient verbalized understanding and agreement with all the above. 04/19/22 0801 <Electronically signed by Agustin BOWEN> Date Agustin BOWEN Cosigner Signature: Date (if applicable) CC: Rajat Cummins DO Work Phone: Start: 04-06-2022 End: 04-06-2022 SCRN MAMM (CAD)W/ARTI BILAT Comments: See Note; NOTES: [facility] Imaging Services [address] [place] [address] SCRN MAMM (CAD)W/ARTI BILAT MR#: [id number] Acct: [id number] Name: ERIN YDSON Rep #: [id number] : 1955 F 66 From: Rfaal rosas MD PCP: Dr. Rajat Cummins, DO Status: [facility] Study: SCRN MAMM (CAD)W/ARTI BILAT Date of Exam: 03/28 Exam# [id number] Ordering Dr: Rajat Cummins DO MAMMOGRAPHY - BILATERAL SCREENING REASON FOR EXAM: Female, 66 years old. Routine annual screening examination. PERTINENT HISTORY: Grandmother with breast cancer. Remote left stereotactic breast biopsy. TECHNIQUE: Digital bilateral breast arti (3D mammographic acquisition) in the CC and MLO projections. 2-D mediolateral oblique (MLO) and craniocaudad (CC) views of both breasts were obtained. CAD: Full Field Digital Mammography with Computer Added Detection was performed. COMPARISON: Comparison is made with prior study 02/24/2021 and 02/05/2020. FINDINGS: Breast Composition: The breasts are extremely dense, which lowers the sensitivity of mammography. There are no dominant masses or suspicious calcifications. A tissue clip marker is seen in the deep upper outer aspect of the left breast. No other significant abnormalities are identified. There has been no significant change since the prior study. BI/SCRN MAMM (CAD)W/ARTI BILAT IMPRESSION: Stable bilateral screening mammogram. Yearly follow-up mammogram recommended. (A) ASSESSMENT CATEGORY: BIRADS Category 2: Benign. A letter regarding these results will be sent to the patient by the facility within 30 days. Approximately 10% of breast cancers are not detected by mammography. A normal mammogram should not delay biopsy of a clinically suspicious abnormality. [id number] Electronically Signed: Rafal Dos Santos MD at 13:38 EDT , CC: Dr. Rajat Cummins DO Rewind Operator: Signed Rajat Cummins DO Work Phone: Start: 07-24-2021 End: 07-24-2021 Colonoscopy Report Comments: See Note; NOTES: [facility] Medical Records Department [address] [place] [address] Colonoscopy Report MR#: [id number] Acct: [id number] Name: ERIN DYSON Rep #: [id number] : 1955 65 From: Russell Najera MD PCP: Dr. Rajat Cummins, DO Status:REG [facility] Patient Name: Erin Dyson Procedure Date: 07/24/2021 6:12 AM Date of : 1955 Age: 65 Procedure: Colonoscopy Indications: High risk colon cancer surveillance: Personal history of colonic polyps Providers: Russell Najera MD Referring MD: Russell Najera MD Medicines: Midazolam 3.5 mg IV, Meperidine 80 mg IV Patient Profile: Last Colonoscopy: August 2018. Complications: No immediate complications. Procedure: Pre-Anesthesia Assessment: - Prior to the procedure, a History and Physical was performed, and patient medications and allergies were reviewed. The patient's tolerance of previous anesthesia was also reviewed. The risks and benefits of the procedure and the sedation options and risks were discussed with the patient. All questions were answered, and informed consent was obtained. Prior Anticoagulants: The patient has taken no previous anticoagulant or antiplatelet agents. ASA Grade Assessment: I - A normal, healthy patient. After reviewing the risks and benefits, the patient was deemed in satisfactory condition to undergo the procedure. After I obtained informed consent, the scope was passed under direct vision. Throughout the procedure, the patient's blood pressure, pulse, and oxygen saturations were monitored continuously. The Colonoscope was introduced through the anus and advanced to the cecum, identified by appendiceal orifice and ileocecal valve. The colonoscopy was performed without difficulty. The patient tolerated the procedure well. The quality of the bowel preparation was good. The ileocecal valve was photographed. Moderate Sedation: Moderate (conscious) sedation was personally administered by the endoscopist. The following parameters were monitored: oxygen saturation, heart rate, blood pressure, and response to care. Total physician intraservice time was 15 minutes. Scope In: 6:35:29 AM Scope Withdrawal Time 0 hours 6 minutes 25 seconds Scope Out: 6:46:43 AM Total Procedure Duration Time 0 hours 11 minutes 14 seconds Findings: The digital rectal exam findings include non-thrombosed internal hemorrhoids and internal hemorrhoids that prolapse with straining, but require manual replacement into the anal canal (Grade III). Scattered diverticula were found in the sigmoid colon. The exam was otherwise without abnormality. Impression: - Non-thrombosed internal hemorrhoids and internal hemorrhoids that prolapse with straining, but require manual replacement into the anal canal (Grade III) found on digital rectal exam. - Diverticulosis in the sigmoid colon. - The examination was otherwise normal. - No specimens collected. Recommendation: - Discharge patient to home. - Resume previous diet. - Continue present medications. - Repeat colonoscopy in 5 years for surveillance. - Return to my office in 1 week to discuss treatment of internal and external hemorrhoids. If hygiene of most importance then consider surgical removal. Procedure Code(s): --- Professional --- 16248, Colonoscopy, flexible; diagnostic, including collection of specimen(s) by brushing or washing, when performed (separate procedure) 02568, 59, Moderate sedation services provided by the same physician or other qualified health career resource technician performing the diagnostic or therapeutic service that the sedation supports, requiring the presence of an independent trained observer to assist in the monitoring of the patient's level of consciousness and physiological status; initial 15 minutes of intraservice time, patient age 5 years or older Diagnosis Code(s): --- Professional --- Z86.010, Personal history of colonic polyps K64.2, Third degree hemorrhoids K57.30, Diverticulosis of large intestine without perforation or abscess without bleeding CPT copyright 2017 [employer]. All rights reserved. The codes documented in this report are preliminary and upon silver holloware assembler review may be revised to meet current compliance requirements. Russell Najera MD 07/24/2021 6:52:10 AM This report has been signed electronically. Number of Addenda: 0 Note Initiated On: 07/24/2021 6:12 AM 07/24/2152 Date Russell Najera MD Cosigner Signature: Date (if indicated) CC: Dr. Rajat Cummins DO; Dr. Russell Najera MD Date Dictated: 07/24/21611 Date Transcribed: Rewind Operator: [email or web address] Signed Rajat Cummins DO Work Phone: Start: 07-24-2021 End: 07-24-2021 History and Physical Exam Comments: See Note; NOTES: [facility] Medical Records Department [address] [place] [address] History Physical Exam 07/24/21621 MR#: [id number] Acct: [id number] Name: ERIN DYSON Rep #: [id number] : 1955 65 From: Russell Najera MD PCP: Dr. Rajat Cummins, DO Status:[facility] [place] Location: [place] [address] HPI - General HPI Narrative ERIN DYSON, is a 65 F who presents for surveillance colonoscopy. On July 07, 2018 she had a screening colonoscopy. Sessile polyp at the splenic flexure was identified and sigmoid diverticulosis as well as grade 2-3 internal and external hemorrhoids. Pathology was consistent with a tubular adenoma. I did see the patient in the office subsequent to that previous event. We discussed surgical treatment of her hemorrhoids. Because of the hygiene problem I felt that surgical treatment be recommended. At this point she had elected not to pursue but continues to have that as a question [facility] Medical History (Updated 07/24/21 @ 06:[address] Russell Najera MD) Alcohol use Cystocele Gastric reflux Hemorrhoid History of echocardiogram History of stress test Non-smoker Post-menopausal Wears glasses Home Medications cholecalciferol (vitamin D3) 50 mcg (2,000 unit) capsule 2,000 unit PO QDAY 03/07/18 [History Last Taken Unknown] calcium carbonate 600 mg PO DAILY 09/02/20 [History Last Taken Unknown] Allergy/AdvReac Type Severity Reaction Status Date / Time No Known Allergies Allergy Verified 07/24/21 05:48 Family History Grandmother Breast cancer Mother Hypertension COPD (chronic obstructive pulmonary disease) Surgical History bilateral sacrospinous ligament fixation H/O bilateral salpingo-oophorectomy H/O cystoscopy H/O total vaginal hysterectomy History of colonoscopy ( 2018) History of Mohs micrographic surgery for skin cancer S/P bunionectomy stereotactic biopsy Social History Smoking Status: Never smoker alcohol intake: current alcohol intake frequency: a few times a week Alcohol type: wine details: 2-3 glasses per week substance use type: does not use caffeine: Yes what type of physical activity do you participate in: walking and weight training frequency: 5-6 times per week seatbelt use: always do you feel safe at home: Yes additional social history: - Ojnd-Srbe-xkkppfce 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[employer] Constitutional Constitutional: Reports systems reviewed and no addt'l complaints, except as documented Cardiovascular Cardiovascular: Denies chest pain Respiratory/Chest Respiratory/Chest: Denies shortness of breath at rest Gastrointestinal Gastrointestinal: Denies abdominal pain, change in bowel habits, hematochezia or melena Vital Signs Vital Signs Vital Signs: 07/24/21 05:49 Temperature 98.6 F Temperature Source Temporal Pulse Rate 58 L Respiratory Rate 18 Respiratory Pattern Normal Blood Pressure 133/81 H Blood Pressure Mean 98 Blood Pressure Source Monitor Blood Pressure Position Sitting Blood Pressure Location Right Arm Pulse Ox 99 Oxygen Delivery Method Room Air Weight Weight: 138 lb 6.4 oz Body Mass Index (BMI) 23.3 Physical Exam Const alert, oriented x3 and no apparent distress General Appearance: cooperative and comfortable Eyes General Eye: normal appearance of both eyes Neck General: normal visual inspection Chest inspection of chest normal Resp Effort and Inspection: able to speak in complete sentences and symmetric chest movement Auscultation: clear to auscultation bilaterally Cardio regular rate and regular rhythm GI soft to palpation, non-tender and non-distended Extremity no calf tenderness Neuro oriented x3 Psych thought process normal Assessment Plan Assessment/Plan (1) Personal history of colonic polyps: PLAN: Patient with personal history of a polyp at the splenic flexure. Endoscopy August 2018. Recommend a colonoscopy with possible biopsy or polypectomy as indicated. She is aware of the technique, benefit, risk, alternatives. She presents via open access today. We will proceed as noted. Russell Najera M.D., F.A.C.S. 07/24/21 0628 <Electronically signed by Russell Najera MD> Cosigner Signature (if applicable): CC: Dr. Rajat Cummins DO; Dr. Russell Najera MD Signed Rajat Cummins DO Work Phone: Start: 06-30-2021 End: 06-30-2021 Stress Report Comments: See Note; NOTES: [facility] [place] [address] MR#: [id number] Acct: [id number] Name: ERIN DYSON Rep #: [id number] : 1955 65 From: Chad Baker MD Primary Care: Dr. Rajat Cummins DO Status: R EG CLI Referring Dr: Rajat Cummins DO Sex: F C Stress Test Report Date: 06-30-2021 Procedure: Exercise tolerance test/imaging study Indications: Chest pain Consent: Per the patient Procedure: The patient exercised on a Niels protocol for 12 minutes completing Stage IV achieving a peak heart rate of 150 bpm (97% predicted maximal heart rate) with a peak blood pressure 166/68 mmHg and a peak MET capacity of 13 METs. The baseline ECG demonstrated sinus bradycardia. The peak exercise ECG demonstrated no obvious ECG changes. There was a rare PVC during exercise. The functional capacity was considered good. There was no complaint of chest discomfort during exercise or recovery. The examination was discontinued secondary to dyspnea. Impression: 1. Technically adequate (percent predicted maximal heart rate greater than 85%) exercise tolerance test 2. Peak exercise ECG with no obvious ECG changes 3. There was a rare PVC during exercise 4. Nuclear images pending Myocardial perfusion imaging study: Technique: The patient was injected with 11.6 mCi of technetium 99m Cardiolite and subsequently rest SPECT Cardiolite nuclear imaging was obtained in the horizontal long, vertical long, and short axis views. The patient exercised on a Niels protocol for 12 minutes completing Stage IV achieving a peak heart rate of 150 bpm (97% predicted maximal heart rate) with a peak blood pressure 166/68 mmHg and a peak MET capacity of 13 METs. The patient was injected with 33.8 mCi of technetium 99m Cardiolite and subsequently stress SPECT Cardiolite nuclear imaging was obtained in the horizontal long, vertical long, and short axis views. A gated Cardiolite study at peak stress was obtained. Interpretation: Rest and stress SPECT Cardiolite nuclear imaging status post realignment, normalization, and attenuation correction, demonstrates the appearance of relative uniform tracer uptake and myocardial perfusion appearing within normal limits. There is end systolic thickening and brightening. The gated Cardiolite study demonstrates myocardial thickening and inward wall motion. The reported LVEF is 75%. Impression: 1. Rest and stress SPECT Cardiolite nuclear imaging demonstrate relative uniform tracer uptake and myocardial perfusion appearing within normal limits. 2. The gated Cardiolite study reports an LVEF of 75%. This note was generated with [employer] software. It may contain incorrect words, spelling, and punctuation that were not noted in checking the note before signing. 06/30/21 1320 <Electronically signed by Chad Baker MD> Date Chad Baker MD CC: Dr. Rajat Cummins DO Date Dictated: 06/30/21 1316 Date Transcribed: 06/30/211315 Rewind Operator: PM Signed Rajat Cummins DO Work Phone: Start: 06-30-2021 End: 06-30-2021 Echo Complete Comments: See Note; NOTES: [facility] [address] [place] [address] Echo Complete 06/30/21817 MR#: [id number] Acct: [id number] Name: ERIN DYSON APOLLO Rep #: [id number] : 1955 65 From: Chad Baker MD Attending Dr: Dr. Rajat Cummins, DO Status: REG CL I Ordering Dr: Rajat Cummins DO Date: 06/30/21 Location: [facility] Sex: F C Admitted: Reason For Study: Chest Pain Procedure This was a 2D Doppler, Color Flow transthoracic echocardiogram. The exam was of adequate technical quality. Exam performed in department. Left Ventricle Normal LV size. Left ventricular systolic function is normal. The estimated ejection fraction is 65 %. Diastolic function is indeterminate. No regional wall motion abnormalities noted. Right Ventricle Normal RV size. Normal systolic function. Atria Borderline enlarged left atrium. Borderline enlarged right atrium. No doppler evidence for ASD. Mitral Valve There is no mitral annular calcification. Mild diffuse mitral valve thickening. Mild (1+) mitral valve insufficiency. Tricuspid Valve Normal tricuspid valve. Mild tricuspid valve insufficiency. Right ventricular systolic pressure estimated to be 26 mmHg. Aortic Valve Trisinus/trileaflet aortic valve. Mild diffuse aortic valve thickening. Pulmonic Valve The pulmonic valve is not well visualized. Trivial pulmonic valve insufficiency. Great Vessels The aortic root is not well visualized. Pericardium/Pleural No pericardial effusion. MMode/2D Measurements Calculations LVIDd: 4.3 cm IVSd: 1.1 cm LA dimension: 3.3 cm LVIDs: 3.1 cm LVPWd: 0.75 cm RVDd: 4.0 cm FS: 28.8 % LAV(MOD-bp): 57.2 ml LVAd ap4: 25.7 cm2 SV(MOD-sp4): 46.6 ml LAV(MOD-bp) Indexed: 34.0 ml/m2 LVLd ap4: 6.7 cm LAV(MOD-sp2): 56.3 ml EDV(MOD-sp4): 79.8 ml LAV(MOD-sp4): 56.7 ml EDV(sp4-el): 84.1 ml LVAs ap4: 15.2 cm2 LVLs ap4: 5.9 cm ESV(MOD-sp4): 33.2 ml ESV(sp4-el): 33.4 ml EF(MOD-sp4): 58.4 % EF(sp4-el): 60.3 % SV(sp4-el): 50.7 ml LA A4 area: 19.2 cm2 RA A4 area: 22.4 cm2 Time Measurements MV dec time: 0.20 sec Doppler Measurements Calculations MV E max ning: 76.0 cm/sec Lat Peak E' Ning: 9.2 cm/sec Med Peak E' Ning: 8.6 cm/sec MV A max ning: 85.2 cm/sec E/E' lat: 8.2 E/E' med: 8.9 MV E/A: 0.89 MV V2 max: 92.7 cm/sec MV P1/2t max ning: 83.6 cm/sec Ao V2 max: 138.0 cm/sec MV max P.4 mmHg MV P1/2t: 65.1 msec Ao max P.6 mmHg MV V2 mean: 45.0 cm/sec MV mean P.0 mmHg MV dec slope: 376.1 cm/sec2 MV V2 VTI: 29.1 cm MVA(P1/2t): 3.4 cm2 LV V1 max: 121.3 cm/sec PA V2 max: 112.7 cm/sec TR max ning: 240.1 cm/sec LV V1 max P.9 mmHg TR max P.1 mmHg ECHO/Echo Complete Interpretation Summary Left ventricular systolic function is normal. The estimated ejection fraction is 65 %. Borderline enlarged left atrium. Borderline enlarged right atrium. Mild diffuse mitral valve thickening. Mild (1+) mitral valve insufficiency. Mild tricuspid valve insufficiency. Mild diffuse aortic valve thickening. Trivial pulmonic valve insufficiency. Right ventricular systolic pressure estimated to be 26 mmHg. Diastolic function is indeterminate. _ Ordering Physician: Rajat Cummins Referring Physician: Rajat Cummins Performed By: Craig Maciel RCS 06/30/21 1507 Date Chad Baker MD CC: Dr. Rajat Cummins DO Date Dictated: 06/30/21817 Date Transcribed: 06/30/211506 Rewind Operator: Signed Rajat Cummins DO Work Phone: Start: 04-24-2021 End: 04-24-2021 Emergency Department Summary Comments: See Note; NOTES: [facility] Medical Records Department [address] [place] [address] Emergency Department Summary 04/24/21 MR#: [id number] Acct: [id number] Name: ERIN DYSON APOLLO Rep #: [id number] : 1955 65 From: Federico Issa MD PCP: Dr. 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) Timing: Continuous Quality: Positive for Tightness (nonpleuritic) Location: Left Chest (w/ radiation into left upper back) Current Severity: Mild Maximum Severity: Mild Worsened By: Nothing; Not Worsened By Exertion, Movement of Arm and Breathing Relieved By: Nothing Associated Symptoms: Negative for Nausea, Vomiting, Diaphoresis, Dyspnea, Cough, Lightheadedness and Palpitations Narrative Narrative: 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 She does not have a history of heart disease. No recent long trips, immobilization, travel, hospitalization, or surgery. She denies having contact with anyone with COVID-19 recently, having had the illness, nor has she had the vaccine because she is afraid of possible adverse effects. Prior Similar Symptoms: No Recent Illness/Hospitalization: No CVD Risk Factors: Negative for Hypertension, Diabetes, Hypercholesterolemia, Family History 1' </=55 and Smoking PE Risk Factors: Negative for Recent Travel/Surgery (only trip to/from [place] 4wks ago, 2 hrs by plane), Recent Immobilization, Prior DVT or PE, Cancer and OCP + Smoking + >/=35 PFSH PFSH Medical History Cystocele Hemorrhoid Home Medications cholecalciferol (vitamin D3) 50 mcg (2,000 unit) capsule 2,000 unit PO QDAY 03/07/18 [History Last Taken Unknown] calcium carbonate 600 mg PO DAILY 09/02/20 [History Last Taken Unknown] omeprazole 40 mg PO DAILY #14 cap 04/24/21 [Rx Last Taken Unknown] Allergy/AdvReac Type Severity Reaction Status Date / Time No Known Allergies Allergy Verified 04/24/21 10:22 Family History Grandmother Breast cancer Mother Hypertension COPD (chronic obstructive pulmonary disease) Surgical History bilateral sacrospinous ligament fixation H/O bilateral salpingo-oophorectomy H/O cystoscopy H/O total vaginal hysterectomy History of colonoscopy ( 2018) History of Mohs micrographic surgery for skin cancer S/P bunionectomy stereotactic biopsy Social History Smoking Status: Never smoker alcohol intake: current alcohol intake frequency: a few times a week Alcohol type: wine details: 2-3 glasses per week substance use type: does not use caffeine: Yes what type of physical activity do you participate in: walking and weight training frequency: 5-6 times per week seatbelt use: always do you feel safe at home: Yes additional social history: - Scgb-[id number] 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[employer] ROS ED Constitutional Constitutional ED: Denies chills or fever(s) Eyes Eyes: Denies change in vision or diplopia ENT ENT ED: Denies rhinorrhea or sore throat Cardiovascular Cardiovascular: Reports as per HPI and chest pain; Denies palpitations Respiratory/Chest Respiratory/Chest: Denies cough or dyspnea Gastrointestinal Gastrointestinal: Denies abdominal pain, diarrhea, nausea or vomiting Genitourinary Genitourinary ED: Denies dysuria or hematuria Musculoskeletal Musculoskeletal: Denies back pain or neck pain Integumentary Denies abscess or rash Neurologic Neurologic: Denies headache(s), paresthesias or weakness Psychiatric Psychiatric: Denies anxiety or suicidal thoughts EXAM Physical Exam Const Vital Signs: 04/24/21 10:22 04/24/21 10:24 04/24/21 10:33 Temperature 98.2 F Temperature Source Temporal Pulse Rate 64 Respiratory Rate 16 Respiratory Effort Normal Non-Labored Blood Pressure 159/87 H Blood Pressure Mean 111 Pulse Ox 99 98 Oxygen Delivery Method Room Air Room Air 04/24/21 11:26 04/24/21 12:00 04/24/21 13:00 Temperature Temperature Source Pulse Rate 58 L 63 56 L Respiratory Rate 16 14 18 Respiratory Effort Blood Pressure 162/93 H 133/86 H 126/82 H Blood Pressure Mean 116 101 96 Pulse Ox 98 96 96 Oxygen Delivery Method Room Air Room Air 04/24/21 14:00 Temperature Temperature Source Pulse Rate 57 L Respiratory Rate 18 Respiratory Effort Blood Pressure 150/93 H Blood Pressure Mean 112 Pulse Ox 98 Oxygen Delivery Method Room Air Positive well nourished and well developed General Appearance ED: well developed and NAD HEENT Reports moist mucous membranes normocephalic and atraumatic Eyes PERRL and EOMs intact bilaterally Neck full ROM and supple Resp normal respiratory effort and clear to auscultation bilaterally Cardio regular rate, regular rhythm and no murmurs Rate: Negative for tachycardic GI non-tender and non-distended Auscultation: normoactive bowel sounds Palpation: soft Back/Spine no CVA tenderness General Back: other FROM Extremity normal to inspection General Extremety ED: Negative for edema, pulses abnormal or tenderness General Extremity: Negative for edema or pulses abnormal Neuro oriented x3, CN's II-XII intact bilaterally and no sensory deficits noted Sensorium / Orientation: awake and alert Motor Exam: strength 5/5 throughout Skin no rashes or lesions noted and no wounds Heart Score History: Slightly/Non-Suspicious ECG: Normal Age: >/= 65 years Risk Factors: No Risk Factors Troponin: </= Normal Limit Score: 2 MDM MDM MDM Narrative Medical decision making narrative: Work-up was performed while patient was given a GI cocktail which seemed to help some, but not all the way. Her work-up is otherwise negative. We discussed a delta troponin and she was amenable, the repeat is negative 3 hours after the initial. She wishes to go home. Advised to follow closely as an outpatient, do not think she needs further testing for pulmonary embolus since these symptoms are not consistent with that and her vital signs are normal without any tachycardia, her heart rate resting is in the 50s. I will prescribe her a PPI to take in the meantime. Lab Data Attestation: I reviewed the patient's lab results. Labs: Laboratory Results - last 24 hr 04/24/21 04/24/21 04/24/21 10:30 10:30 13:24 WBC 5.3 RBC 4.45 Hgb 13.9 Hct 42.1 MCV 94.6 MCH 31.2 MCHC 33.0 RDW Std Deviation 44.5 H RDW Coeff of Juan Carlos 12.9 Plt Count 201 MPV 8.9 Immature Gran % (Auto) 0.200 Neut % (Auto) 62.5 Lymph % (Auto) 28.3 [place] % (Auto) 5.7 Eos % (Auto) 2.7 Baso % (Auto) 0.6 Absolute Neuts (auto) 3.3 Absolute Lymphs (auto) 1.49 Nucleated RBC % 0 Sodium 141 Potassium 3.9 Chloride 107 Carbon Dioxide 31.0 Anion Gap 3 L BUN 15 Creatinine 0.90 Estim Creat Clear Calc 55.33 Est GFR (MDRD) Af Amer 81 Est GFR (MDRD) Non-Af 67 BUN/Creatinine Ratio 16.7 Glucose 76 Calcium 9.9 Troponin I < 0.015 < 0.015 Radiography Diagnostic Testing: Radiology Impression Chest X-Ray 04/24/21 10:30 IMPRESSION: No acute cardiopulmonary findings Electronically Signed: Orestes Greene DO at 11:24 EDT Tel , Service support , EKG Initial EKG: Attestation: I personally reviewed and interpreted this EKG as follows: Interpretation: Sinus Rhythm and No Acute Injury Pattern Comments: normal EKG. performed during presence of sx. Prior EKG tracings: not available for review Discharge Plan Triage Chief Complaint: Chest Pain ED Provider: Federico Issa Dx/Rx/DC Orders Clinical Impression: Chest pain, unspecified Instructions: ED Chest Pain, Uncertain Cause Prescriptions: New omeprazole 40 mg capsule,delayed release(DR/EC) 40 mg PO DAILY Qty: 14 RF: 0 No Action cholecalciferol (vitamin D3) 2,000 unit capsule 2,000 unit PO QDAY RF: 0 calcium carbonate 600 MG tablet 600 mg PO DAILY RF: 0 Primary Care Provider: Dee Alvarez Referrals: Dee Alvarez, [Primary Care Provider] - As soon as possible (Call for appointment, being seen after the weekend is okay, return for new symptoms that you are concerned with) Disposition Disposition: Home, self care What to do if you have Problems For any increased pain, shortness of breath, bleeding, nausea or vomiting, chest pain, or any unexpected problems, contact your Primary Care Provider. Call [facility] ([phone]) or report to the closest Emergency Room. Call 911 if necessary. 04/24/21 4756 <Electronically signed by Federico Issa MD> Cosigner Signature (if applicable): CC: Dr. Dee Alavrez DO Signed Dee Alvarez DO Work Phone: Start: 04-24-2021 End: 04-28-2021 12 Lead EKG Comments: See Note; NOTES: [facility] Cardiovascular Services [address] [place] [address] 12 Lead EKG 04/24/21 1026 MR#: [id number] Acct: [id number] Name: ERIN DYSON APOLLO Rep #: [id number] : 1955 65 From: Phillip Borrego MD Attending Dr: Status: DEP ER Ordering Dr: Federico Issa MD Date: 04/24/21 Location: ED Sex: F C Admitted: Test Reason : CP Blood Pressure : / mmHG Vent. Rate : 060 BPM Atrial Rate : 060 BPM P-R Int : 172 ms QRS Dur : 076 ms QT Int : 426 ms P-R-T Axes : 044 063 041 degrees QTc Int : 426 ms Normal sinus rhythm Normal ECG Confirmed by LAUREN SEVERINO, PHILLIP ([id number]), photographic editor LATASHA BRITTON ([id number]) on 04/28/2021 1:44:13 PM Referred By: GRZEGORZ Confirmed By:PHILLIP BORREGO MD 04/28/21 1344 Date Phillip Borrego MD CC: Dr. Federico Issa MD; Dr. Dee Alvarez DO Signed Dee Alvarez DO Work Phone: Start: 04-24-2021 End: 04-24-2021 Chest 1 View (Portable) Comments: See Note; NOTES: [facility] Imaging Services [address] [place] [address] Chest 1 View (Portable) MR#: [id number] Acct: [id number] Name: ERIN DYSON APOLLO Rep #: [id number] : 1955 F 65 From: Orestes jefferson DO PCP: Dr. Dee Alvarez DO Status: REG ER Study: Chest 1 View (Portable) Date of Exam: 04/24/21 Exam# [id number] Ordering Dr: Federico Issa MD STUDY: X-RAY CHEST REASON FOR EXAM: Female, 65 years old. chest pain TECHNIQUE: Single AP portable view of the chest. COMPARISON: None. FINDINGS: Cardiac silhouette unremarkable. Pulmonary vascularity unremarkable. Aorta unremarkable. No focal patchy airspace opacities. No pleural effusions. COPD. Upper abdomen unremarkable. Osseous structures intact. No pneumothorax. RAD/Chest 1 View (Portable) IMPRESSION: No acute cardiopulmonary findings Electronically Signed: Orestes Greene DO at 11:24 EDT Tel , Service support , CC: Dr. Federico Issa MD; Dr. Dee Alvarez DO Rewind Operator: Signed Dee Alvarez DO Work Phone: Start: 02-24-2021 End: 02-24-2021 SCRN MAMM (CAD)W/ARTI BILAT Comments: See Note; NOTES: [facility] Imaging Services [address] [place] [address] SCRN MAMM (CAD)W/ARTI BILAT MR#: [id number] Acct: [id number] Name: ERIN DYSON APOLLO Rep #: [id number] : 1955 F 65 From: Rafal rosas MD PCP: Dr. Dee Alvarez DO Status: REG CLI Study: SCRN MAMM (CAD)W/ARTI BILAT Date of Exam: 01/28 Exam# [id number] Ordering Dr: Dee Alvarez DO MAMMOGRAPHY - BILATERAL SCREENING REASON FOR EXAM: Female, 65 years old. Routine annual screening examination. PERTINENT HISTORY: Grandmother with breast cancer. Remote left stereotactic breast biopsy. TECHNIQUE: Digital bilateral breast arti (3D mammographic acquisition) in the CC and MLO projections. 2-D mediolateral oblique (MLO) and craniocaudad (CC) views of both breasts were obtained. CAD: Full Field Digital Mammography with Computer Added Detection was performed. COMPARISON: Comparison is made with prior study dated 02/05/2020 and 01/09/2019. FINDINGS: Breast Composition: The breasts are heterogeneously dense, which may obscure small masses. There are no dominant masses or suspicious calcifications. A tissue clip marker from prior stereotactic breast biopsy is seen in the deep upper lateral aspect of the No other significant abnormalities are identified. There has been no significant change since the prior study. BI/SCRN MAMM (CAD)W/ARTI BILAT IMPRESSION: Stable bilateral screening mammogram. Yearly follow-up mammogram recommended. (A) ASSESSMENT CATEGORY: BIRADS Category 2: Benign. A letter regarding these results will be sent to the patient by the facility within 30 days. Approximately 10% of breast cancers are not detected by mammography. A normal mammogram should not delay biopsy of a clinically suspicious abnormality. [id number] Electronically Signed: Rafal Dos Santos MD at 8:39 EDT , Service support , CC: Dr. Dee Alvarez DO Rewind Operator: Signed Dee Alvarez DO Work Phone: Start: 12-13-2020 End: 12-13-2020 Office Visit Report Comments: See Note; NOTES: [facility] [address] [place] [address] [place] [address] OFFICE VISIT Date of Service: 12/13/20 MR#: [id number] Acct: [id number] Patient: ERIN DYSON APOLLO Rep #: [id number] : 1955 Provider: KATHLEEN jimenez Age/Sex: 65/F Location: [facility] Status: Signed Intake Vital Signs 12/13/20 BP 112/68 12/13/20 Blood Pressure Location Lt brachial 12/13/20 Position Sitting 12/13/20 Respiration 14 12/13/20 Pulse 75 12/13/20 Pulse Source Monitor 12/13/20 Temp 97.0 F L 12/13/20 Temp Source Temporal 12/13/20 Pulse Oximetry (%) 99 01/16/21 Oxygen Delivery Method room air Intake Visit Reasons: BILATERAL TOENAIL FUNGUS Chief Complaint: toenail fungus Allergies No Known Allergies Allergy (Verified 12/13/20 13:54) Medications cholecalciferol (vitamin D3) 50 mcg (2,000 unit) capsule 2,000 unit PO QDAY 03/07/18 [History Confirmed 12/13/20] Calcium Carbonate [Elemental Calcium] 600 mg PO DAILY 09/02/20 [History Confirmed 12/13/20] terbinafine HCl 250 mg tablet 250 mg PO DAILY 84 Days #84 tab 12/13/20 [Rx Confirmed 12/13/20] [facility] Medical History Hemorrhoid (Chronic) Cystocele (Chronic) Surgical History (Updated 12/13/20 @ 13:54 by Lisha Guy) H/O bilateral salpingo-oophorectomy (Acute) H/O cystoscopy (Acute) H/O total vaginal hysterectomy (Acute) History of Mohs micrographic surgery for skin cancer (Acute) History of colonoscopy (Acute 2017) bilateral sacrospinous ligament fixation (Acute) S/P bunionectomy (Resolved) stereotactic biopsy (Resolved) Family History Grandmother Breast cancer Mother Hypertension COPD (chronic obstructive pulmonary disease) Social History (Updated 12/13/20 @ 14:11 by Haydee Kilgore CARPORT ERECTOR, CARPORT ERECTOR-C) Smoking Status: Never smoker alcohol intake: current alcohol intake frequency: a few times a week Alcohol type: wine details: 2-3 glasses per week substance use type: does not use caffeine: Yes what type of physical activity do you participate in: walking, weight training frequency: 5-6 times per week seatbelt use: always do you feel safe at home: Yes additional social history: - Yxnq-Qsoh-tnmyrvfl 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 She reports she took the nail bulgarian off of her toenails last night and noticed that her big toes were thick and yellow, the left worse than the right. She has not had previous fungal nail infections. She does not have itching, burning or rash of the feet/toes or elsewhere. She denies N/V/D. She has no history of hepatitis, liver cirrhosis or altered liver function. Her labs were reviewed from 08/2020: LFTs normal ROS Const Constitutional: No chills, fatigue or fever(s) Gastro GI: No diarrhea, nausea/dyspepsia or vomiting Skin Skin: No rash, skin pain or skin swelling Endo Endocrine: No fatigue Exam Const General: cooperative, healthy appearing, comfortable, no acute distress Orientation: alert, awake Resp Effort Inspection: normal respiratory effort, able to speak in complete sentences, symmetric chest movement, no audible wheezes, no cough Auscultation: Bilateral: Clear to Auscultation Cardio Rate: regular rate Rhythm: regular rhythm Skin General: no rashes or lesions noted Nails: discolored, yellow and thickened (bilateral great toes, left worse than right) Extrem General: normal capillary refill, normal gait Psych Appearance: grossly normal Mental Status: mental status grossly normal Mood: congruent mood Affect: normal affect Speech and Movement: speech and movement normal Attitude: cooperative Assessment Plan Problems 1. Onychomycosis of left great toe B35.1 2. Onychomycosis of right great toe B35.1 Plan Start terbinafine as directed. Discussed with patient that this is a long course of treatment and this should not be used with impaired liver function. Recent labs reviewed; LFTs normal. Patient has upcoming repeat lab work with her PCP. Patient may use OTC treatment as well if desired, although discussed that topical treatment is typically ineffective at penetrating nails. Notify healthcare provider if new/worsening symptoms develop. Medications New: terbinafine HCl 250 mg PO DAILY 12 weeks 84 tabs 0RF Coding Level of Care Code Off vis,est,level 4 Diagnoses Onychomycosis of left great toe B35.1 Onychomycosis of right great toe B35.1 12/13/20 1411 <Electronically signed by Haydee Kilgore NP CARPORT ERECTOR- C> Date Haydee Kilgore NP CARPORT ERECTOR-C Cosigner Signature: Date (if applicable) CC: Dee Alvarez Start: 09-23-2020 End: 09-23-2020 Analytics Consultant Office Visit Report Comments: See Note; NOTES: [facility] [place] [facility] [address] [place] [address] OFFICE VISIT Date of Service: 09/23/20 MR#: [id number] Acct: [id number] Name: ERIN DYSON APOLLO Rep #: [id number] : 1955 Provider: Dr. Patricia balderrama MD Age/Sex: 65/F Location: [facility] Status: Signed Intake Vital Signs 09/23/20 Height 5 ft 5 in 09/23/20 Weight: 144 lb 09/23/20 BMI 23.9 09/23/20 BP 112/80 Intake Visit Reasons: 2 week post op Chief Complaint: 2w post op Internet Application Developer Required: No Is patient in pain?: No Allergies No Known Allergies Allergy (Verified 09/23/20 15:30) Medications cholecalciferol (vitamin D3) 50 mcg (2,000 unit) capsule 2,000 unit PO QDAY 03/07/18 [History Confirmed 09/23/20] Calcium Carbonate [Elemental Calcium] 600 mg PO DAILY 09/02/20 [History Confirmed 09/23/20] Is last menstrual period known: No Post menopausal: Yes Patient : No : No [facility] History Hemorrhoid (Chronic) Cystocele (Chronic) Surgical History H/O bilateral salpingo-oophorectomy (Acute) H/O cystoscopy (Acute) H/O total vaginal hysterectomy (Acute) History of colonoscopy (Acute 2017) bilateral sacrospinous ligament fixation (Acute) S/P bunionectomy (Resolved) stereotactic biopsy (Resolved) Family History Grandmother Breast cancer Mother Hypertension COPD (chronic obstructive pulmonary disease) Social History (Updated 09/23/20 @ 15:[address] 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 Pregancy History 2 Elective abortions Hx Para 2 Spontaneous abortions Hx # Term Pregnancies Ectopic pregnancies Hx # Pregnancies Multiple births # of living children Past Pregnancies Del. Date Name GA/Weeks Outcome Route Bth Weight Infant Gen Labor Lgth Anesthesia Del Locatn Provider FOB Unknown Katie-1970 Unknown -1970 Unknown Unknown Delivery Date: No notes to display Delivery Date: No notes to display Delivery Date: No notes to display Delivery Date: Giacomo (step-daughter) Diana Baugh ROS Const Constitutional: Reports system reviewed and no additional complaints, except as docu GI GI: Denies abdominal pain, cramping, nausea or vomiting : Denies pelvic pain, urinary frequency, urinary incontinence, urinary urgency, vaginal discharge, vaginal dryness or vaginal odor Exam Const General: cooperative, healthy appearing, comfortable, no acute distress GI Inspection: normal to inspection Palpation: soft, nontender Assessment Plan Problems 1. Uterovaginal prolapse N81.4 2. Midline cystocele plan tvh bso combo case with joe Plan postop fu Coding Level of Care Code No Charge Diagnoses Uterovaginal prolapse N81.4 Midline cystocele 09/23/20 1542 <Electronically signed by Patricia Blackman MD> Date Patricia Blackman MD Cosigner Signature: Date (if applicable) CC: Dee Alvarez Start: 09-10-2020 End: 09-10-2020 Progress Note - OBGYN Comments: See Note; NOTES: [facility] Medical Records Department [address] [place] [address] Progress Note - OBGYN 09/10/20 0726 MR#: [id number] Acct: [id number] Name: ERIN DYSON APOLLO Rep #: [id number] : 1955 65 From: Patricia Blackman MD PCP: Dr. Dee Alvarez, DO Status:REG SDC Y [id number] Problems: Active and Suspected Problems (Last Reviewed 08/26/20 @ 13:03 by Diana Baugh) Uterovaginal prolapse (Acute) Subjective: patient recovering well, denies CP, SOB, N, or V. patient is ambulating, voiding ,tolerating adequate po, and pain is controlled with oral medications. - Physical Exam Vitals/I O's: Vital Signs Temp Pulse Resp BP Pulse Ox 98.4 F 61 18 101/55 L 97 09/10/20 04:15 09/10/20 04:15 09/10/20 04:15 09/10/20 04:15 09/10/20 06:42 Oxygen Flow Rate (L/min) 6 Oxygen Delivery Method Room Air Weight: 144 lb 6.444 oz Body Mass Index (BMI) 24.0 Intake and Output for Last 24 Hours 09/08/20 09/09/20 09/10/20 23:59 23:59 23:59 Intake Total 2214 / 3014 1972.17 / 1972.17 Output Total 475 / 1025 1700 / 1700 Balance 173 / 1988 272.17 / 272.17 General: Alert, Oriented x3 Laboratory Results 09/09/20 06:00: POC Glucose 96 09/09/20 15:08: WBC 10.5, RBC 3.85 L, Hgb 12.0, Hct 37.4, MCV 97.1, MCH 31.2, MCHC 32.1, RDW Std Deviation 45.1 H, RDW Coeff of Juan Carlos 12.8, Plt Count 193, MPV 9.0, Immature Gran % (Auto) 0.500, Neut % (Auto) 94.2 H, Lymph % (Auto) 3.0 L, [place] % (Auto) 2.2, Eos % (Auto) 0.0, Baso % (Auto) 0.1, Absolute Neuts (auto) 9.9 H, Absolute Lymphs (auto) 0.32 L, Nucleated RBC % 0, Differential Comment SEE COMMENT, Platelet Estimate ADEQUATE, RBC Morphology N CHROM, Anisocytosis RARE, Macrocytosis RARE 09/10/20 05:33: WBC 8.4, RBC 3.59 L, Hgb 11.1 L, Hct 34.6 L, MCV 96.4, MCH 30.9, MCHC 32.1, RDW Std Deviation 45.1 H, RDW Coeff of Juan Carlos 12.8, Plt Count 199, MPV 9.1 Current Medications Acetaminophen (Acetaminophen 500 Mg Tablet) 1,000 mg PO Q6H [facility] Last Admin: 09/10/20 06:43 Dose: 1,000 mg Documented by: Cephalexin (Cephalexin 500 Mg Capsule) 500 mg PO Q12 [facility] Last Admin: 09/09/20 22:12 Dose: 500 mg Documented by: Docusate Sodium (Docusate Sodium 100 Mg Capsule) 100 mg PO BID [facility] Last Admin: 09/09/20 22:12 Dose: 100 mg Documented by: Enoxaparin Sodium (Enoxaparin 40 Mg/0.4 Ml Syringe) 40 mg SC DAILY [facility] Sodium Chloride () 250 mls @ 15 mls/hr IV .[id number] PRN PRN Reason: Saline Flush Sodium Chloride () 250 mls @ 15 mls/hr IV .[id number] PRN PRN Reason: Additional IVPB Infusion Lactated Ringer's () 1,000 mls @ 70 mls/hr IV .[id number] [facility] Stop: 09/10/20 12:30 Last Infusion: 09/10/20 05:22 Dose: Infused Documented by: Ketorolac Tromethamine (Ketorolac 30 Mg/Ml Syringe) 30 mg IV Q6H [facility] Stop: 09/10/20 18:31 Last Admin: 09/10/20 06:09 Dose: 30 mg Documented by: Magnesium Chloride (Magnesium Chloride 64 Mg Delay Rel.Tablet) 128 mg PO DAILY PRN PRN PRN Reason: Constipation Nutritional Formula (Lactose Free) (Ensure Enlive 120 Ml Liquid) 120 ml PO TIDCM YARELIS Ondansetron HCl (Ondansetron Odt 4 Mg Tablet) 4 mg PO Q6H PRN PRN PRN Reason: NAUSEA Oxycodone HCl (Oxycodone 5 Mg Tablet) 5 - 10 mg PO Q4H PRN PRN PRN Reason: Pain Score 4-10 Sodium Chloride (0.9% Saline Lock 10 Ml Syringe) 10 - 40 ml IV UD PRN PRN Reason: SALINE FLUSH Last Admin: 09/10/20 06:09 Dose: 10 ml Documented by: Medical Necessity - Tobacco Use Smoking Status: Never smoker Tobacco Use: Non-smoker Assessment/Plan All Active Problems (Last Reviewed 08/26/20 @ 13:03 by Diana Baugh) Uterovaginal prolapse (Acute) Staph skin infection (Acute) Pharyngitis (Acute) patient is s/p TVH pelvic floor repair POD 1 1. routine ERAS protocol postop care- increase ambulation, encourage oral intake and oral control of pain. lovenox and scds for dvt prophylaxis, patient stable for discharge to home. 09/10/20 0734 <Electronically signed by Patricia Blackman MD> Date Patricia Blackman MD CC: Signed Dee Alvarez Start: 09-09-2020 End: 09-10-2020 Discharge Instruction Comments: See Note; NOTES: [facility] Medical Records Department [address] [place] [address] Instructions for Home/Discharge Instructions 09/09/20 1636 MR#: [id number] Acct: [id number] Name: NERIERIN Rep #: [id number] : 1955 65 From: Patricia Blackman MD PCP: Dr. Dee Alvarez, DO Status:REG SDC Discharge Diet: No Restrictions Discharge Activity: Return to Normal Activity, May Not Drive, May Shower May resume sexual activity in: 6-8 weeks Call your doctor if your incision/area has: Continuous Slow Oozing, Sudden Increased Bleeding, Increased Pain/ Swelling, Increased Redness, Foul Smelling Discharge Call your doctor if you observe: Fever of 101 or Higher, Inability to urinate, Inability to have a bowel movement, Using more than one pad per hour Allergies/Adverse Reactions: Allergies No Known Allergies Allergy (Verified 08/26/20 13:03) Medications to take at Discharge cholecalciferol (vitamin D3) 50 mcg (2,000 unit) capsule 2,000 unit PO QDAY 03/07/18 Calcium Carbonate [Elemental Calcium] 600 mg PO DAILY 09/02/20 Naproxen [Naprosyn] 250 - 500 mg PO Q8H PRN PRN #30 tab 09/09/20 Oxycodone HCl/Acetaminophen [Percocet 5-325] 1 - 2 tab PO Q6H PRN PRN 7 Days #15 tab 09/09/20 The following prescriptions were given: Naproxen [Naprosyn] 250 - 500 mg PO Q8H PRN PRN #30 tab PRN Reason: MILD PAIN Transmission Status: Received by [facility] Oxycodone HCl/Acetaminophen [Percocet 5-325] 1 - 2 tab PO Q6H PRN PRN 7 Days #15 tab PRN Reason: Pain Transmission Status: Received by [facility] Primary Care Physician: Dee Alvarez DO [Primary Care Provider] - Test Results: Test results from this visit will be discussed in further detail at your follow-up appointment, if applicable. Please Follow Up With: Patricia Blackman MD - [phone] 09/10/20 0735 <Electronically signed by Patricia Blackman MD> Date Patricia Blackman MD CC: Dr. Nan Robison MD; Dr. Dee Alvarez DO Signed Dee Alvarez Start: 09-09-2020 End: 09-09-2020 Operative Report Comments: See Note; NOTES: [facility] Medical Records Department [address] [place] [address] Operative Report 10/13/20 1044 MR#: [id number] Acct: [id number] Name: ERIN DYSON Rep #: [id number] : 1955 65 From: Nan Robison MD PCP: Dr. Dee Alvarez, DO Status:REG SDC Y Location: [place] [address] Problem List (1) Cystocele Status: Chronic Qualifiers: Comment: plan tvh bso combo case with joe (2) Uterovaginal prolapse Status: Acute Report of Operation Date of Procedure: 09/09/20 Pre-Operative Diagnosis: Uterovaginal prolapse, postmenopausal vaginal atrophy Post-Operative Diagnosis: Same Surgery/Procedure Performed:: Anterior repair, bilateral sacrospinous ligament fixation with dermis, cystoscopy Type of Anesthesia:: General Estimated Blood Loss (mL): 25cc Description of Procedure: The patient is a 65-year-old female who presented to the office with uterovaginal prolapse. After evaluation with cystoscopy and urodynamics, she decided to proceed with surgical intervention. Informed consent was obtained after discussing all risk benefits and alternatives including that of COVID-19. Patient was taken to the operating room and placed on the operating room table. Anesthesia monitored the head, neck, airway, IV access and vital signs throughout the case. Once anesthesia was appropriately administered, the patient was placed into dorsal lithotomy position and was prepped and draped in usual sterile fashion. The first portion of the case was then performed by Dr. Blackman. After closure of the vaginal cuff, the case was turned to vt. The patient had very thin vaginal mucosa. It was injected submucosally with vasopressin for hydrostatic dissection and hemostatic control. A midline vertical incision was then made approximately 2.5 cm in length. Sharp and blunt dissection was performed on either side until the sacrospinous ligaments were identified and freed from surrounding tissues. This was very difficult as the patient had significant amount of scar tissue in the area surrounding the sacrospinous ligaments bilaterally. Using the Capio, Monodek sutures were passed through the sacrospinous ligaments and through a trimmed piece of dermis. A full-thickness 2-0 Vicryl suture was used to tack the dermis in the midline. 2-0 Vicryl interrupted sutures were placed at the area of the bladder neck as well as the areas of the remaining pubocervical fascia laterally. The dermis lay flat against the bladder. The mucosa was then closed over in the midline using running interlocking 2-0 Vicryl. Because her mucosa was very thin, this was difficult as there were multiple areas of torn mucosa. At the conclusion of the closure of the midline incision, the sacrospinous ligament sutures were tied into position. The prolapse was completely reduced. A cystourethroscopy was performed through the urethra under direct visualization with the 70 degree lens. There were no injuries to the urinary bladder including foreign body or bruising. There were no mucosal abnormalities identified. There was a good ureteral jet observed from the left ureteral orifice. On the right side a 5 Faroese whistle-tip catheter was easily inserted into the urethra up to 25 cm. It was removed and there was no blood and no obstruction. At this time the Keyes catheter was replaced and the vagina was packed with Premarin cream and vaginal packing. The patient was awakened and taken to the recovery room in good condition. There were no complications during the procedure. Grafts/Implants Used: Dermis - Complications none - Admit VTE Documentation VTE Present on Admission: Yes VTE Mechan Device Prophylaxis: SCD's VTE Pharm Prophylaxis ordered?: Yes 09/09/20 1051 <Electronically signed by Nan Robison MD> Date Nan Robison MD CC: Dr. Nan Robison MD; Dr. Dee Alvarez DO; Dr. Patricia Blackman MD Signed Dee Alvarez Start: 09-09-2020 End: 09-09-2020 Operative Report Comments: See Note; NOTES: [facility] Medical Records Department [address] [place] [address] Operative Report 09/09/20 0730 MR#: [id number] Acct: [id number] Name: ERIN DYSON APOLLO Rep #: [id number] : 1955 65 From: Patricia Blackman MD PCP: Dr. Dee Alvarez DO Status:REG SDC Y Location: [facility] [id number] Problem List (1) Cystocele Status: Chronic Qualifiers: Comment: plan tvh bso combo case with joe (2) Hemorrhoid Status: Chronic Qualifiers: Comment: consult with dr najera for possible removal Report of Operation Date of Procedure: 09/09/20 Pre-Operative Diagnosis: prolapse Post-Operative Diagnosis: same Surgery/Procedure Performed:: tvh bso Description of Surgical Findings:: nl uterus tubes ovaries ribbon cutter: Beena Corral Type of Anesthesia:: General Special Medications: none Specimen's removed: uterus tubes ovaries Drains: none Estimated Blood Loss (mL): 150 Fluids Replaced: crystalloid Description of Procedure: Patient was taken to the operating room and was placed under general anesthesia was prepped and draped in normal sterile fashion in the dorsal lithotomy position. Preoperative antibiotics and SCDs and Keyes catheter was placed inside the bladder. Weighted speculum was placed in the vagina and the anterior and posterior lip of the cervix was grasped with 2 Rosemarie clamps and circumferentially injected with dilute vasopressin. A circumferential incision was made with a scalpel and the posterior cul-de-sac was entered into sharply and a longneck speculum was placed. The anterior cul-de-sac was also dissected down and entered into sharply and the uterosacral ligaments were clamped cut and suture ligated bilaterally followed by the cardinal ligaments which were Clamped cut and suture ligated bilaterally with 0 Monocryl. The uterus serially descended and progressive bites were taken bilaterally up to the level of the utero-ovarian ligament bilaterally which was clamped transected and double ligated with 0 Monocryl suture and 0 Vicryl free tie. Bilateral fallopian tubes and ovaries were well visualized and noted be within normal limits and the bilateral fallopian tubes and ovaries were then clamped, transected across the base of the IP ligament with a Evan clamp and removed and double ligated with 0 monocryl suture and an 0 vicryl free tie. There was some difficulty accessing the right pelvic side wall due to visualization but overall the majority if not all of the ovary was removed. addition sutures were place over the pelvic side constantino bilaterally to obtain hemostasis and after this Excellent hemostasis was noted. Posterior peritoneum and the vagina were closed with [id number] 0 Vicryl pop offs including the posterior and what anterior peritoneum was visible in the reapproximation. Excellent hemostasis was noted. All instruments removed from the vagina clear urine was noted at the end of the procedure and dr robison began her portion of the procedure. Grafts/Implants Used: see joe note Multi Select Codes - Urinary/Genital Urinary/Genital CPT Codes: 99337 TVH+BS/O <250gr uterus 09/09/20 0918 <Electronically signed by Patricia Blackman MD> Date Patricia Blackman MD CC: Dr. Nan Robison MD; Dr. Dee Alvarez DO; Dr. Patricia Blackman MD Signed Dee Alvarez Start: 09-09-2020 End: 09-10-2020 History and Physical Exam Comments: See Note; NOTES: [facility] Medical Records Department [address] [place] [address] History and Physical 09/09/20 0645 MR#: [id number] Acct: [id number] Name: ERIN DYSON APOLLO Rep #: [id number] : 1955 65 From: Patricia Blackman MD PCP: Dr. Dee Alvarez DO Status:REG [facility] Y Location[place] [facility] UM158-1 - Problem List (1) Cystocele Status: Chronic Qualifiers: Comment: plan tvh bso combo case with joe (2) Hemorrhoid Status: Chronic Qualifiers: Comment: consult with dr najera for possible removal History and Physical Date of Admission: 09/09/20 Intake Vital Signs 08/26/20 BMI 21.6 08/26/20 Height 5 ft 5.5 in 08/26/20 Weight: 141 lb 8 oz 08/26/20 BMI 23.1 08/26/20 BP 130/80 H Intake Visit Reasons: pre op Internet Application Developer Required: No Is patient in pain?: No Allergies No Known Allergies Allergy (Verified 08/26/20 13:03) Medications cholecalciferol (vitamin D3) 50 mcg (2,000 unit) capsule 2,000 unit PO QDAY 03/07/18 [History Confirmed 08/26/20] Is last menstrual period known: No Post menopausal: Yes Patient : No : No [facility] Medical History Hemorrhoid (Chronic) Cystocele (Chronic) Surgical History History of colonoscopy (Acute 2018) S/P bunionectomy (Resolved) stereotactic biopsy (Resolved) Family History Grandmother Breast cancer Mother Hypertension COPD (chronic obstructive pulmonary disease) Social History (Updated 08/26/20 @ 13:[address] 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 she is going to have a combo case with Dr robison. Female Reproductive History Questions: Metorrhagia: No, Sexually active: Yes, Dyspareunia: No, PCB: No Menopausal Symptoms: No night sweats Pregancy History 2 Elective abortions Hx Para 2 Spontaneous abortions Hx # Term Pregnancies Ectopic pregnancies Hx # Pregnancies Multiple births # of living children Past Pregnancies Del. Date Name GA/Weeks Outcome Route Bth Weight Gen Labor Lgth Anesthesia Del Locatn Provider FOB Unknown Katie-1970 Unknown Nida-1970 Unknown Unknown Delivery Date: No notes to display Delivery Date: No notes to display Delivery Date: No notes to display Delivery Date: On 03/07/18 @ 14:31 Diana Baugh Giacomo (step-daughter) ROS Const Constitutional: Denies fatigue, night sweats, weight gain or weight loss ENT ENT: Reports system reviewed and no additional complaints, except as docu Cardio Card: Denies chest pain Resp Resp: Denies cough or dyspnea GI GI: Reports as per HPI; denies abdominal pain, constipation, nausea or vomiting : Denies nipple discharge, urinary frequency, urinary incontinence, urinary hesitancy, urinary urgency, vaginal discharge, vaginal dryness, vaginal odor or vaginal itching Musc Musc: Denies joint pain, back pain or muscle weakness Skin Skin/Breast: Denies hair loss, change in hair, dry skin, breast lump, breast pain, breast skin changes or nipple discharge Neuro Neuro: Reports system reviewed and no additional complaints, except as docu Psych Psych: Reports system reviewed and no additional complaints, except as docu Endo Endo: Denies cold intolerance, excessive sweating, heat intolerance or increased thirst Edgar/Lymph Hematologic/Lymphatic: Denies easy bleeding, Denies easy bruising, Denies enlarged lymph nodes Exam Const General: cooperative, healthy appearing, comfortable, no acute distress, well developed Orientation: alert [facility] Head: normal to inspection, normocephalic Ears: hearing grossly normal bilaterally, external ears normal Nose: external nose normal, nares normal Face and sinus: normal facial exam Neck Neck: normal visual inspection, no lymphadenopathy Thyroid: thyroid normal Chest Chest palpation inspection: normal inspection of the chest Resp Effort Inspection: normal respiratory effort Auscultation: clear to auscultation bilaterally Cardio Rate: regular rate Rhythm: regular rhythm Heart Sounds: S1 normal, S2 normal GI Inspection: normal to inspection, non-distended Palpation: soft, no hepatosplenomegaly Musc Other: gross motor intact no deficits, full bilateral strength Skin General: no rashes or lesions noted Neuro General: alert, awake, moves all extremities, no focal motor deficits Motor: muscle tone normal throughout Extrem General: normal to inspection, no pedal edema Psych Appearance: grossly normal Mental Status: mental status grossly normal Affect: normal affect Speech and Movement: speech and movement normal Assessment Plan Problems 1. Cystocele plan [facility] bso combo case with joe Salvador After discussing the patient's diagnosis and treatment plan options, patient wishes to proceed with surgical management. I have discussed with the patient the risks, benefits, and alternatives of the procedure which include but are not limited to risks of anesthesia, bleeding, infection, possible damage to bowel, bladder, or surrounding vasculature which could lead to additional surgery to evaluate any complications. Patient agrees to procedure and wishes to proceed. ACOG/uptodate references given for additional information regarding procedure. Coding Level of Care Code No Charge Diagnoses Cystocele UPDATE- I have seen the patient and performed any clinically relevant updates to the history and physical exam. Patricia Blackman MD 09/10/20 0735 <Electronically signed by Patricia Blackman MD> Date Patricia Blackman MD Cosigner Signature: Date (if applicable) CC: Dr. Dee Alvarez DO; Dr. Patricia Blackman MD Signed Dee Alvarez Start: 09-03-2020 End: 09-04-2020 12 Lead EKG Comments: See Note; NOTES: [facility] Cardiovascular Services [address] [place] [address] 12 Lead EKG 09/03/20719 MR#: [id number] Acct: [id number] Name: ERIN DYSON APOLLO Rep #: [id number] : 1955 65 From: Phillip Borrego MD Attending Dr: Dr. Patricia Blackman MD Status: PRE [facility] Ordering Dr: Orestes Arroyo MD Date: 09/03/20 Location: [facility] [facility] Sex: F C Admitted: Test Reason : PREOP Blood Pressure : / mmHG Vent. Rate : 057 BPM Atrial Rate : 057 BPM P-R Int : 166 ms QRS Dur : 082 ms QT Int : 412 ms P-R-T Axes : 042 049 033 degrees QTc Int : 401 ms Sinus bradycardia Otherwise normal ECG Confirmed by PHILLIP BORREGO MD ([id number]), photographic editor LATASHA BRITTON ([id number]) on 09/04/2020 10:08:46 AM Referred By: Patricia Blackman Confirmed By:PHILLIP BORREGO MD 09/04/20 1008 Date Phillip Borrego MD CC: Dr. Orestes Arroyo MD; Dr. Dee Alvarez DO; Dr. Patricia Blackman MD Signed Dee Alvarez Start: 08-26-2020 End: 08-26-2020 Analytics Consultant Office Visit Report Comments: See Note; NOTES: [facility] [address] [place] [address] OFFICE VISIT Date of Service: 08/26/20 MR#: [id number] Acct: [id number] Name: ERIN DYSON Rep #: [id number] : 1955 Provider: Dr. Patricia balderrama MD Age/Sex: 65/F Location: [facility] Status: Signed Intake Vital Signs 08/26/20 BMI 21.6 08/26/20 Height 5 ft 5.5 in 08/26/20 Weight: 141 lb 8 oz 08/26/20 BMI 23.1 08/26/20 BP 130/80 H Intake Visit Reasons: pre op Internet Application Developer Required: No Is patient in pain?: No Allergies No Known Allergies Allergy (Verified 08/26/20 13:03) Medications cholecalciferol (vitamin D3) 50 mcg (2,000 unit) capsule 2,000 unit PO QDAY 03/07/18 [History Confirmed 08/26/20] Is last menstrual period known: No Post menopausal: Yes Patient : No : No PFSH Medical History Hemorrhoid (Chronic) Cystocele (Chronic) Surgical History History of colonoscopy (Acute 2018) S/P bunionectomy (Resolved) stereotactic biopsy (Resolved) Family History Grandmother Breast cancer Mother Hypertension COPD (chronic obstructive pulmonary disease) Social History (Updated 08/26/20 @ 13:[address] 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 she is going to have a combo case with Dr robison. Female Reproductive History Questions: Metorrhagia: No, Sexually active: Yes, Dyspareunia: No, PCB: No Menopausal Symptoms: No night sweats Pregancy History 2 Elective abortions Hx Para 2 Spontaneous abortions Hx # Term Pregnancies Ectopic pregnancies Hx # Pregnancies Multiple births # of living children Past Pregnancies Del. Date Name GA/Weeks Outcome Route Bth Weight Infant Gen Labor Lgth Anesthesia Del Locatn Provider FOB Unknown Katie-1970 Unknown Nida-1970 Unknown Unknown Delivery Date: No notes to display Delivery Date: No notes to display Delivery Date: No notes to display Delivery Date: On 03/07/18 @ 14:31 Diana Baugh Giacomo (step-daughter) ROS Const Constitutional: Denies fatigue, night sweats, weight gain or weight loss ENT ENT: Reports system reviewed and no additional complaints, except as docu Cardio Card: Denies chest pain Resp Resp: Denies cough or dyspnea GI GI: Reports as per HPI; denies abdominal pain, constipation, nausea or vomiting : Denies nipple discharge, urinary frequency, urinary incontinence, urinary hesitancy, urinary urgency, vaginal discharge, vaginal dryness, vaginal odor or vaginal itching Musc Musc: Denies joint pain, back pain or muscle weakness Skin Skin/Breast: Denies hair loss, change in hair, dry skin, breast lump, breast pain, breast skin changes or nipple discharge Neuro Neuro: Reports system reviewed and no additional complaints, except as docu Psych Psych: Reports system reviewed and no additional complaints, except as docu Endo Endo: Denies cold intolerance, excessive sweating, heat intolerance or increased thirst Edgar/Lymph Hematologic/Lymphatic: Denies easy bleeding, Denies easy bruising, Denies enlarged lymph nodes Exam Const General: cooperative, healthy appearing, comfortable, no acute distress, well developed Orientation: alert HENMT Head: normal to inspection, normocephalic Ears: hearing grossly normal bilaterally, external ears normal Nose: external nose normal, nares normal Face and sinus: normal facial exam Neck Neck: normal visual inspection, no lymphadenopathy Thyroid: thyroid normal Chest Chest palpation inspection: normal inspection of the chest Resp Effort Inspection: normal respiratory effort Auscultation: clear to auscultation bilaterally Cardio Rate: regular rate Rhythm: regular rhythm Heart Sounds: S1 normal, S2 normal GI Inspection: normal to inspection, non-distended Palpation: soft, no hepatosplenomegaly Musc Other: gross motor intact no deficits, full bilateral strength Skin General: no rashes or lesions noted Neuro General: alert, awake, moves all extremities, no focal motor deficits Motor: muscle tone normal throughout Extrem General: normal to inspection, no pedal edema Psych Appearance: grossly normal Mental Status: mental status grossly normal Affect: normal affect Speech and Movement: speech and movement normal Assessment Plan Problems 1. Cystocele plan [facility] bso combo case with joe Plan After discussing the patient's diagnosis and treatment plan options, patient wishes to proceed with surgical management. I have discussed with the patient the risks, benefits, and alternatives of the procedure which include but are not limited to risks of anesthesia, bleeding, infection, possible damage to bowel, bladder, or surrounding vasculature which could lead to additional surgery to evaluate any complications. Patient agrees to procedure and wishes to proceed. ACOG/uptodate references given for additional information regarding procedure. Coding Level of Care Code No Charge Diagnoses Cystocele 08/26/20 1318 <Electronically signed by Patricia Blackman MD> Date Patricia Blackman MD Cosigner Signature: Date (if applicable) CC: DO Dee Mcrae Start: 04-22-2020 End: 04-22-2020 Urgent Care Visit Report Comments: See Note; NOTES: [facility] [address] [place] [id number] OFFICE VISIT Date of Service: 04/22/20 MR#: [id number] Acct: [id number] Name: ERIN DYSON Rep #: [id number] : 1955 Provider: Agustin BOWEN Age/Sex: 64/F Location: [facility] [place] [place] Status: Signed Intake Vital Signs 04/22/20 BMI 21.6 04/22/20 Height 5 ft 5.5 in 04/22/20 Weight: 143 lb 04/22/20 BMI 23.4 04/22/20 BP 124/70 H 04/22/20 Respiration 15 04/22/20 Pulse 61 04/22/20 Temp 98.5 F 04/22/20 Temp Source Temporal 04/22/20 Pulse Oximetry (%) 96 04/22/20 Oxygen Delivery Method room air Intake Visit Reasons: LEFT INSIDE OF ARM SCRAPE/REDNESS Chief Complaint: Left forearm abrasion Allergies No Known Allergies Allergy (Verified 04/22/20 13:44) Medications cholecalciferol (vitamin D3) 50 mcg (2,000 unit) capsule 2,000 unit PO QDAY 03/07/18 [History Confirmed 04/22/20] cephalexin 500 mg capsule 500 mg PO Q12H 10 Days #20 cap 04/22/20 [Rx Confirmed 04/22/20] PFSH Medical History Hemorrhoid (Chronic) Cystocele (Chronic) Surgical History History of colonoscopy (Acute 2018) S/P bunionectomy (Resolved) stereotactic biopsy (Resolved) Family History Grandmother Breast cancer Mother Hypertension COPD (chronic obstructive pulmonary disease) Social History (Updated 04/22/20 @ 13:49 by ANDRÉS Hyatt) Smoking Status: Never smoker alcohol intake: current alcohol intake frequency: a few times a week Alcohol type: wine details: 2-3 glasses per week substance use type: does not use caffeine: Yes what type of physical activity do you participate in: walking, weight training frequency: 5-6 times per week seatbelt use: always do you feel safe at home: Yes additional social history: - Hdeu-Bjvo-tzglxpms 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 Patient states that she noticed the abrasion approximately 4 days ago and is concerned since it has recently started becoming red and slightly swollen. She is unaware of what caused the abrasion to the left forearm. She denies numbness, tingling or loss of range of motion to the left arm. She has had no fever, chills, sweats. No nausea, vomiting, diarrhea. No other associated symptoms or alleviating/aggravating factors. ROS Const Constitutional: Positive for other (6 system ROS completed with pertinent findings in the HPI otherwise normal.) Exam Const General: cooperative, healthy appearing Resp Effort Inspection: normal respiratory effort Auscultation: Bilateral: Clear to Auscultation Cardio Palpation: normal PMI Rate: regular rate Rhythm: regular rhythm Skin Other: Linear abrasion to the left forearm measuring approximately 1.5 to 2 cm in length with some surrounding erythema and soft tissue swelling. There is no extending erythema, streaking or drainage from the site. Neuro General: alert, CN's II-XI intact bilaterally Extrem General: full ROM, normal capillary refill, normal exam except as noted, no joint enlargement Other: Full sensation to palpation distally as well as appropriate capillary refill. Psych Appearance: grossly normal Mental Status: mental status grossly normal Assessment Plan Problems 1. Staph skin infection L08.9; B95.8 Status Acute Medications New: cephalexin 500 mg PO Q12H 10 days 20 caps 0RF Coding Level of Care Code Off vis,new,level 3 Diagnoses Staph skin infection L08.9; B95.8 04/22/20 1349 <Electronically signed by Agustin BOWEN> Date Agustin BOWEN Cosigner Signature: Date (if applicable) CC: Dee Alvarez Start: 04-10-2020 End: 04-10-2020 Dexa Bone Density Study Comments: See Note; NOTES: [facility] Imaging Services [address] [place] [address] Dexa Bone Density Study MR#: [id number] Acct: [id number] Name: ERIN DYSON Rep #: [id number] : 1955 F 64 From: Rafal rosas MD PCP: Dr. Dee Alvarez, Status: [facility] CLI Study: Dexa Bone Density Study Date of Exam: 04/10/20 Exam# [id number] Ordering Dr: Dee Alvarez DO STUDY: DUAL ENERGY X-RAY ABSORPTIOMETRY / DXA REASON FOR EXAM: Female, 64 years old. Age of carlo 50. Pat is 143.5 and 64.75 and quot; a loss of 1-1.5 and quot; per pat. Exercises a lot. TECHNIQUE: Bone Mineral Density (BMD) measurements of lumbar spine and bilateral hips were obtained. COMPARISON: Comparison is made with prior examination dated July 29, 2015. FINDINGS: Lumbar Spine (L1-L4): g/cm2 (1.138) / T-score (-0.3) / Z-score (1.2) Findings are suggestive of normal bone density with a low fracture risk. Left Femur Total: g/cm2 (1.023) / T-score (0.1) / Z-score (1.3) Left Femoral Neck: g/cm2 (0.954) / T-score (-0.6) / Z-score (0.9) Right Femur Total: g/cm2 (0.996) / T-score (-0.1) / Z-score (1.1) Right Femoral Neck: g/cm2 (0.914) / T-score (-0.9) / Z-score (0.6) The T-Scores on the most recent prior examination were: Lumbar Spine (L1-L4): There has been worsening of bone density since the previous examination. Left Femur Total: which represents a worsening of 6.3%. Right Femur Total: which represents a worsening of 8.3%. BD/Dexa Bone Density Study IMPRESSION: The patient is considered normal as outlined below according to World [employer] Organization (WHO) criteria with a low fracture risk. There has been worsening of bone density since the previous examination. Reference Information: The T-score is the number of standard deviations above or below the standard which is normal for young adults at their peak bone mineral density. The World Health Organization (WHO) interprets the T-scores as follows: Above -1 Normal bone density Between -1 and -2.5 Osteopenia Equal to / or below -2.5 Osteoporosis As a practical clinical guideline, osteopenia may be graded as follows: Mild -1 through -1.5 Moderate -1.6 through -2.0 Severe -2.1 through -2.4 The Z-score is the number of standard deviations above or below age-matched controls. A Z-score of less than -1.5 would be considered abnormal. References: 1. NIH Osteoporosis and Related Bone Diseases http://www.osteo.org 2. International Society for Clinical Densitometry http://www.iscd.org 3. National Osteoporosis Foundation http://www.nof.org Electronically Signed: Rafal Dos Santos, at 10:12 EDT , Service support , CC: Dr. Dee Alvarez DO Rewind Operator: Signed Dee Alvarez Work Phone: Start: 11-28-2019 End: 11-28-2019 Louise Langford CMA Plan of Treatment Date Care Activity Detail Author Start: 2023 End: 10-19-2023 Cobalamin (Vitamin B12) [Mass/volume] in Serum or Plasma [facility] Work Phone: Immunizations Immunization Date Immunization Notes Care Provider Wen shanks 10-02-2020 influenza virus vacc ine, unspecified formulation Ozzie Robertson Jr., MD Work Phone: [facility] 09-16-2009 tetanus toxoid, redu marnie diphtheria toxoid, and acellular pertussis vaccine, adsorbed Neurology Provider [facility] Payers Date Payer Category Payer Private Health Insurance [facility]ANNERSUNITA Lopez [facility] [employer] [id number] 2022-Present [phone] [address] [place] [id number] PPO [id number] 2022 Unknown [id number] 2021 Unknown [id number] 2014 Unknown [id number] 2005 Unknown [id number] 1955 Unknown [id number] Unknown Social History Date Type Detail Facility Start: 07-14-2022 End: 2023 Alcohol Use Alcohol Use Comprehensive Survey Project Manager al Medicine Work Phone: Clinical Notes 06-08-2023 to 11-14-2023 Telephone Encounter - Maureen Garrison - 11/14/2023 11:08 AM ESTTelephone Encounter - Pavithra Lucio LPN - 11/11/2023 11:14 AM Kerry Stephenson RT(R) - 10/04/2023 1:00 PM EST Note Date & Type Note Facility 11-14-2023 Miscellaneous Notes 1st attempt, left VM about canceled appointment with Danni Gurrola on 01/13. Need to reschedule. documented in this encounter [facility] 11-11-2023 Miscellaneous Notes Spoke with pt and information listed below given. Pt verbalizes understanding. Pt will take (1) 5 mg in the am only. Pavithra Lucio LPN TC to pt with no answer, left VM to return call. Please advise pt to take 5 mg namenda in morning only to see if help symptoms. Radha Fermin LPN Do you want her to take 10 mg once daily or 5 mg once daily? Radha Fermin LPN I would try taking Namenda in the morning only to see if she is able to fall asleep and if her headaches improve. Danni Gurrola PA-C Patient calls to report that since starting Namenda 5 mg twice daily that she has been having trouble falling a sleep and staying asleep at night and asking what provider recommends she do. She also reports a mild headache since starting medication. She said the headache is a little bothersome but she can handle the headache just not being able to get a decent night of sleep. Patient takes Namenda 5 mg around 6 am and 6 pm. Please review and advise, Gricelda Reyez RN documented in this encounter [facility] 10-12-2023 Miscellaneous Notes Sent Namenda to [facility] pharmacy. Pt reports she went to picker and packer memantine 5 mg from [facility] and was advised that insurance requires a prior auth for this med. Geneva Mejia LPN documented in this encounter [facility] 10-11-2023 Note HNO ID: [id number] Author: Danni Gurrola PA-C Service: ? Author Type: Physician Aircraft Motor Mechanic Type: Progress Notes Filed: 10/11/2023 3:54 PM Note Text: ESTABLISHED PATIENT VISIT Last visit: 08/19/[address] Robertson ASSESSMENT/PLAN: 1. Memory loss - ICD9: 780.93, ICD10: R41.3 (primary diagnosis) 2. Cognitive decline - ICD9: 294.9, ICD10: R41.89 Patient with reported history of memory loss and cognitive decline over recent years - noted by patient's family and not patient herself (family not present). However, patient is aware of some difficulties with short term memory. Objectively scores 19/29 on MOCA suggesting at least a mild cognitive impairment. Concerning is reported family history of dementia which might indicate patient prone for a neurodegenerative process. She denies depression or anxiety to suggest pseudodementia. No sleep complaints besides snoring. No NPH triad. Further discussed ddx with pt. Will check thyroid and B12 levels to evaluate for metabolic etiology. Will also get MRI brain with volumetric analysis to better determine if a neurodegenerative process might be present. Pt understands the limitations of all testing an that a specific final diagnosis may not be possible without actual analysis by pathology. She reports not wanting any invasive testing. We will also have pt see neuro psych for cognitive assessment. If above workup suggestive of a neurodegenerative process, we did discuss meds such as Aricept and Namenda today, and would consider starting either at time of follow up. Pt agrees with plan. Ozzie Robertson MD CHIEF COMPLAINT: follow up HISTORY OF PRESENT ILLNESS: Erin Dysno is a 68 year old female, There were no vitals taken for this visit. with a PMH significant for carpal tunnel. Chart review: Last seen for memory loss by Dr. Robertson on 08/19/23. MoCA was 19/29 (visuospatial intact), sister with dementia, mother with dementia at 89. Still driving. MRI showing chronic ischmic changes and hippocampus in the 9th percentile. Labs normal. No meds, sent to neuropsych testing. Patient presents for follow-up after imaging for memory loss. Patient notes no new symptoms since last visit, no change, no new medications or diagnoses. No change in her memory, states that it has been a gradual loss of short-term memory over the last year or so, no car accidents or leaving stove on. Notes that her sister was diagnosed with dementia, unspecified type, 2 years ago and she is about 17 months older than the patient. Notes that her mother was diagnosed with dementia much later in life in her 80s. Presents today to go over her MRI results. Laboratory work-up was unremarkable. Patient denying any depression. Did report snoring, this is been going on for many years. Denies any morning headaches but does report dry mouth throughout the night. States that she wakes up to drink water because of this. Does note that she is fatigued but is not today, but attributes that to waking up early and having long days. No observed apneic episodes. No significant fluctuations. REVIEW OF SYSTEMS GENERAL:No weight loss, malaise or fevers. HEENT:Negative for frequent or significant headaches, No changes in hearing or vision, no nose bleeds or other nasal problems NECK:Negative for lumps, goiter, pain and significant neck swelling RESPIRATORY: Negative for cough, wheezing or shortness of breath. CARDIOVASCULAR: Negative for chest pain, leg swelling or palpitations. GASTROINTESTINAL: Negative for abdominal discomfort, blood in stools or black stools or change in bowel habits GENITOURINARY: No history of dysuria, frequency or incontinence MUSCULOSKELETAL: Negative for joint pain or swelling, back pain or muscle pain. NEUROLOGIC:Negative for focal numbness or weakness, headaches and dizziness or syncope, vision changes, speech/languag changes - EXCEPT that as per HPI above. SKIN:Negative for lesions, rash, and itching. PSYCHIATRIC: Negative for sleep disturbance, mood disorder and recent psychosocial stressors. HEMATOLOGIC/LYMPHATIC/IMMUNOLOGI C:Negative for prolonged bleeding, bruising easily or swollen nodes. ENDOCRINE: Negative for cold or heat intolerance, polyuria, polydipsia and goiter. The remainder of the ROS was reviewed and is negative. LAB/IMAGING: Those performed since patient's last visit have been reviewed. MRI brain volumetric 10/04/23 IMPRESSION: * No evidence of an acute intracranial process or intracranial mass. * Mild generalized volume loss. * Chiari I malformation. * Hippocampal volumes at the 9 percentile when compared to age matched normal controls by quantitative analysis. * Mild nonspecific white matter disease likely reflective of chronic microvascular ischemia. B12, TSH WNL MEDICATIONS: cholecalciferol, vitamin D3, (VITAMIN D-3) 10 mcg (400 unit) cap Take 400 Units by mouth once daily. ZINC ACETATE ORAL Take 1 tab (more content not included)... [facility] 10-05-2023 Miscellaneous Notes TC to pt, scheduled October 112022 with Danni Gurrola. Results faxed to PCP per request. Radha Fermin LPN Please get pt sooner appt with AGUSTÍN PA or MARYANN METAL CASTING TRADES WORKER to go over results. Thank you, Ozzie Robertson MD Pt calling stating she had MRI done today for Dr Robertson. Pt is wanting to have copy of MRI results also sent to her pcp Dr Rajat Cummins. Saw Higuera LPN documented in this encounter [facility] 10-04-2023 Note HNO ID: [id number] Author: Kerry Beltre RT(R) Service: ? Author Type: Technologist Type: Progress Notes Filed: 10/04/2023 1:10 PM Note Text: Radiology Service Progress Note PATIENT NAME: Erin Dyson DATE OF SERVICE: October 04, 2023 TIME: 1:09 PM PATIENT IDENTITY VERIFICATION COMPLETED USING TWO (2) IDENTIFIERS: Name and Date of confirmed by patient verbally. FALL SCREENING: Has the patient had 2 falls in the last year or 1 fall with injury or currently using an Ambulatory Assistive Device (Walker, Cane, Wheelchair, Crutches, etc.)? No PATIENT GENDER DATA: Female. status: : No status: NO. PATIENT RELEVANT IMPLANT DATA REVIEWED: Yes RADIOLOGY DEPARTMENT: MR; Exam(s) Completed: Head: Routine Brain PERIPHERAL IV DATA: Not applicable SIGNED BY: RT Hannah(Joyce) October 04, 2023 1:[address] [facility] 10-04-2023 History of Presen t illness Narrative Radiology Service Progress Note PATIENT NAME: Erin Dyson DATE OF SERVICE: October 04, 2023 TIME: 1:09 PM PATIENT IDENTITY VERIFICATION COMPLETED USING TWO (2) IDENTIFIERS: Name and Date of confirmed by patient verbally. FALL SCREENING: Has the patient had 2 falls in the last year or 1 fall with injury or currently using an Ambulatory Assistive Device (Walker, Cane, Wheelchair, Crutches, etc.)? No PATIENT GENDER DATA: Female. status: : No status: NO. PATIENT RELEVANT IMPLANT DATA REVIEWED: Yes RADIOLOGY DEPARTMENT: MR; Exam(s) Completed: Head: Routine Brain PERIPHERAL IV DATA: Not applicable SIGNED BY: RT Hannah(Joyce) October 04, 2023 1:09 PM documented in this encounter [facility] 2023 Note HNO ID: [id number] Author: Ozzie Robertson Jr., MD Service: ? Author Type: Physician Type: Progress Notes Filed: 2023 12:17 PM Note Text: NEW PATIENT (CONSULT) HISTORY AND PHYSICAL EXAM PRIMARY CARE PHYSICIAN: Bear Pozo MD REASON FOR CONSULT: Memory loss REFERRING PHYSICIAN: Self CHIEF COMPLAINT: My family states I am having memory problems. Consultation requested by Self for an opinion regarding chief complaint of Patient presents with: New Patient Evaluation and my final recommendations will be communicated back to the requesting physician by way of shared medical record or letter via US mail. HISTORY OF PRESENT ILLNESS: Erin Dyson is a 68 year old female, BMI 23.49 kg/m2 with a PMH significant for that noted below who presents with memory problems. Patient states short term memory difficulties. Good memory at work, but sometimes will forget things like the date. tells her she repeats things. Not losing things around the house. No issues with discussions. Drinks maybe 1 glass of red wine nightly. Sister with dementia (although no details regarding this dx). Mother also with dementia but 89 years with symptoms first present at about 87 years (and possible history of stroke). No issues driving. Never gets lost. No major events such as leaving water running or over on. No labs available to confirm whether thyroid and B12 checked. No prior head imaging. MODIFIED MOCA: Immediate Recall: 04/01 Repeat numbers: 2 Repeat sentence: 12/30 Serial 7s: 100-97 0 Abstract: 11/29 Orientation: 05/03 Namin/3 Words being with 1 minute: iiiii iiii 0 A tap: 11/28 Delayed recall: 01/02 (03/02 with cues) Cube draw: 11/28 Clock draw: 01/28 TOTAL: Sleeping well. Does have mild snoring. No issues waking in the AM. Not tired during the day REVIEW OF SYSTEMS GENERAL:No weight loss, malaise or fevers. HEENT:Negative for frequent or significant headaches, No changes in hearing or vision, no nose bleeds or other nasal problems NECK:Negative for lumps, goiter, pain and significant neck swelling RESPIRATORY: Negative for cough, wheezing or shortness of breath. CARDIOVASCULAR: Negative for chest pain, leg swelling or palpitations. GASTROINTESTINAL: Negative for abdominal discomfort, blood in stools or black stools or change in bowel habits GENITOURINARY: No history of dysuria, frequency or incontinence MUSCULOSKELETAL: Negative for joint pain or swelling, back pain or muscle pain. NEUROLOGIC:Negative for focal numbness or weakness, headaches and dizziness or syncope, vision changes, speech/language changes, changes in gait or falls -- besides those complaints as above in HPI. SKIN:Negative for lesions, rash, and itching. PSYCHIATRIC: Negative for sleep disturbance, mood disorder and recent psychosocial stressors. HEMATOLOGIC/LYMPHATIC/IMMUNOLOGI C:Negative for prolonged bleeding, bruising easily or swollen nodes. ENDOCRINE: Negative for cold or heat intolerance, polyuria, polydipsia and goiter. The remainder of the ROS was reviewed and is negative. LAB/IMAGING: Reviewed and include: No results found for: WBC , RBC , HB , HCT , MCV , MCH , MCHC , RDWCV , PLT , MPV , GLUC , BUN , CREAT , NA , K , CHLOR , CO2 , TPROT , ALB , CA , ALKPHOS , TBILI , AST , ALT , HITESH , ESRMM , SSA , SSB , CRYO , CRYOQ , RF , AHBSQ , HEPCABEIA URINALYSIS No results found for: PH , SPGR , UGLUC , UBILI , UKET , UHB , UPROT , UROBIL , UWBC , SSA -Obtaining from PCP MEDICATIONS: cholecalciferol, vitamin D3, (VITAMIN D-3) 10 mcg (400 unit) cap Take 400 Units by mouth once daily. ZINC ACETATE ORAL Take 1 tablet by mouth once daily. calcium carbonate (CALCIUM 500 ORAL) Take 1 tablet by mouth once daily. BIOTIN ORAL Take by mouth. (Patient not taking: Reported on 2023) HISTORIES PAST MEDICAL HISTORY Diagnosis Date NONE FAMILY HISTORY Problem Relation Age of Onset Breast Cancer Paternal Grandmother Hypertension Mother Cancer Father brain SOCIAL HISTORY Social History Tobacco Use Smoking status: Never Smokeless tobacco: Never Substance Use Topics Alcohol use: Yes Comment: occassional Drug use: No PHYSICAL EXAMINATION BP 131/89 Pulse 64 Resp 18 Wt 63 kg (139 lb) LMP 03/27/2006 SpO2 96% BMI 23.49 kg/m? GENERAL EXAM: General appearance: NAD, pleasant. HEENT: NC/AT, nasal congestion absent, no oral lesions, membranes moist. NECK: ROM nml. Lungs: CTA bilaterally. CV: RRR nl S1, S2. No carotid bruits. Extr: No cyanosis, clubbing or edema. Skin: Cool to touch. NEUROLOGICAL EXAM: General: Awake, alert, oriented x3 (person,place,time), speech fluent, no dysarthria; MOCA above. CN: PERRL, fundi with no evidence of papilledema, EOMI and without nystagmus, VFF to confrontation, facial sensation and strength are normal and symmetric, hearing is intact to finger rub (more content not included)... [facility] 2023 Note HNO ID: [id number] Author: Radha Fermin LPN Service: ? Author Type: LICENSED NURSE Type: Progress Notes Filed: 2023 12:17 PM Note Text: There is no data to display for this encounter [facility] 2023 History of Presen t illness Narrative NEW PATIENT (CONSULT) HISTORY AND PHYSICAL EXAM PRIMARY CARE PHYSICIAN: Bear Pozo MD REASON FOR CONSULT: Memory loss REFERRING PHYSICIAN: Self CHIEF COMPLAINT: My family states I am having memory problems. Consultation requested by Self for an opinion regarding chief complaint of Patient presents with: New Patient Evaluation and my final recommendations will be communicated back to the requesting physician by way of shared medical record or letter via US mail. HISTORY OF PRESENT ILLNESS: Erin Dyson is a 68 year old female, BMI 23.49 kg/m2 with a PMH significant for that noted below who presents with memory problems. Patient states short term memory difficulties. Good memory at work, but sometimes will forget things like the date. tells her she repeats things. Not losing things around the house. No issues with discussions. Drinks maybe 1 glass of red wine nightly. Sister with dementia (although no details regarding this dx). Mother also with dementia but 89 years with symptoms first present at about 87 years (and possible history of stroke). No issues driving. Never gets lost. No major events such as leaving water running or over on. No labs available to confirm whether thyroid and B12 checked. No prior head imaging. MODIFIED MOCA: Immediate Recall: 5 Repeat numbers: 2/2 Repeat sentence: 22 Serial 7s: 100-97 0 Abstract: 11/29 Orientation: 05/03 Namin/3 Words being with 1 minute: iiiii iiii 0/1 A tap: 11/28 Delayed recall: 2/5 (4/5 with cues) Cube draw: 11/28 Clock draw: 01/28 TOTAL: Sleeping well. Does have mild snoring. No issues waking in the AM. Not tired during the day REVIEW OF SYSTEMS GENERAL:No weight loss, malaise or fevers. HEENT:Negative for frequent or significant headaches, No changes in hearing or vision, no nose bleeds or other nasal problems NECK:Negative for lumps, goiter, pain and significant neck swelling RESPIRATORY: Negative for cough, wheezing or shortness of breath. CARDIOVASCULAR: Negative for chest pain, leg swelling or palpitations. GASTROINTESTINAL: Negative for abdominal discomfort, blood in stools or black stools or change in bowel habits GENITOURINARY: No history of dysuria, frequency or incontinence MUSCULOSKELETAL: Negative for joint pain or swelling, back pain or muscle pain. NEUROLOGIC:Negative for focal numbness or weakness, headaches and dizziness or syncope, vision changes, speech/language changes, changes in gait or falls -- besides those complaints as above in HPI. SKIN:Negative for lesions, rash, and itching. PSYCHIATRIC: Negative for sleep disturbance, mood disorder and recent psychosocial stressors. HEMATOLOGIC/LYMPHATIC/IMMUNOLOGI C:Negative for prolonged bleeding, bruising easily or swollen nodes. ENDOCRINE: Negative for cold or heat intolerance, polyuria, polydipsia and goiter. The remainder of the ROS was reviewed and is negative. LAB/IMAGING: Reviewed and include: No results found for: WBC , RBC , HB , HCT , MCV , MCH , MCHC , RDWCV , PLT , MPV , GLUC , BUN , CREAT , NA , K , CHLOR , CO2 , TPROT , ALB , CA , ALKPHOS , TBILI , AST , ALT , HITESH , ESRMM , SSA , SSB , CRYO , CRYOQ , RF , AHBSQ , HEPCABEIA URINALYSIS No results found for: PH , SPGR , UGLUC , UBILI , UKET , UHB , UPROT , UROBIL , UWBC , SSA -Obtaining from PCP MEDICATIONS: cholecalciferol, vitamin D3, (VITAMIN D-3) 10 mcg (400 unit) cap Take 400 Units by mouth once daily. ZINC ACETATE ORAL Take 1 tablet by mouth once daily. calcium carbonate (CALCIUM 500 ORAL) Take 1 tablet by mouth once daily. BIOTIN ORAL Take by mouth. (Patient not taking: Reported on 2023) HISTORIES PAST MEDICAL HISTORY Diagnosis Date NONE FAMILY HISTORY Problem Relation Age of Onset Breast Cancer Paternal Grandmother Hypertension Mother Cancer Father brain SOCIAL HISTORY Social History Tobacco Use Smoking status: Never Smokeless tobacco: Never Substance Use Topics Alcohol use: Yes Comment: occassional Drug use: No PHYSICAL EXAMINATION BP 131/89 Pulse 64 Resp 18 Wt 63 kg (139 lb) LMP 03/27/2006 SpO2 96% BMI 23.49 kg/m GENERAL EXAM: General appearance: NAD, pleasant. HEENT: NC/AT, nasal congestion absent, no oral lesions, membranes moist. NECK: ROM nml. Lungs: CTA bilaterally. CV: RRR nl S1, S2. No carotid bruits. Extr: No cyanosis, clubbing or edema. Skin: Cool to touch. NEUROLOGICAL EXAM: General: Awake, alert, oriented x3 (person,place,time), speech fluent, no dysarthria; MOCA above. CN: PERRL, fundi with no evidence of papilledema, EOMI and without nystagmus, VFF to confrontation, facial sensation and strength are normal and symmetric, hearing is intact to finger rub bilaterally, palate and tongue movements are intact and symmetric. SCM and trapezius strength normal. Motor: Normal tone, bulk and strength (5/5) bilaterally (throughout extremities x4). Reflexes: 2/4 and symmetric, plantar stimulation is flexor. Coordination: FNF, TAD, HTS intact. No tremors. Sensation: LT, vibration, temperature intact throughout. No evidence of neglect. Gait: Stable with normal stride and arm swing. Romberg normal. Assessment and Plan: ASSESSMENT/PLAN: 1. Memory loss - ICD9: 780.93, ICD10: R41.3 (primary diagnosis) 2. Cognitive decline - ICD9: 294.9, ICD10: R41.89 Patient with reported history of memory loss and cognitive decline over recent years - noted by patient's family and not patient herself (family not present). However, patient is aware of some difficulties with short term memory. Objectively scores 19/29 on MOCA suggesting at least a mild cognitive impairment. Concerning is reported family history of dementia which might indicate patient prone for a neurodegenerative process. She denies depression or anxiety to suggest pseudodementia. No sleep complaints besides snoring. No NPH triad. Further discussed ddx with pt. Will check thyroid and B12 levels to evaluate for metabolic etiology. Will also get MRI brain with volumetric analysis to better determine if a neurodegenerative process might be present. Pt understands the limitations of all testing an that a specific final diagnosis may not be possible without actual analysis by pathology. She reports not wanting any invasive testing. We will also have pt see neuro psych for cognitive assessment. If above workup suggestive of a neurodegenerative process, we did discuss meds such as Aricept and Namenda today, and would consider starting either at time of follow up. Pt agrees with plan. Ozzie Robertson MD I spent a total of 45+ minutes on the date of the service which included preparing to see the patient, [id number] patient care, completing clinical documentation, obtaining and/or reviewing separately obtained history, performing a medically appropriate examination, counseling and educating the patient/family/caregiver, and ordering medications, tests, or procedures. There is no data to display for this encounter documented in this encounter [facility] 06-08-2023 Miscellaneous Notes Patient returned call, regarding note below. Pt reports she made the neurology appt because her and daughter tell her that they believe she has short term memory impairment and repeats things that she already told them, but she does not recall telling them. She states otherwise she feels she is healthy; she works out, is active, plays tennis and works 4 days a week. Charisse Ramirez RN Tc to pt with no answer. Left VM to return call to gather more information about her upcoming appointment for memory loss. Radha Fermin LPN Pt has upcoming appt on July [address] Robertson for memory loss and memory problems. No referral in chart or related information in chart. Radha Fermin LPN documented [facility] encounter [facility] Memory loss Cognitive decline Unspecified persistent mental disorders due to conditions classified elsewhere [facility] Name Dates Details How to Access Health Informa tion Online using Patient Portal and [employer]rd [employer] Apps Indication:Non-smoker Start:08-Dec-2020 Instruction Type:Patient Education Patient Instructions Indication:Non-smoker Start:08-Dec-2020 Instruction Type:Provider Instructions for Treatment How to access health informa tion online Indication:Non-smoker Start:20-Aug-2020 Instruction Type:Patient Education How to access health informa tion online - Detail Indication:Non-smoker Start:20-Aug-2020 Instruction Type:Patient Education Patient Instructions Indication:Non-smoker Start:20-Aug-2020 Instruction Type:Provider Instructions for Treatment How to access health informa tion online Indication:Non-smoker Start:04-Apr-2020 Instruction Type:Patient Education How to access health informa tion online - Detail Indication:Non-smoker Start:04-Apr-2020 Instruction Type:Patient Education Patient Instructions Indication:Non-smoker Start:04-Apr-2020 Instruction Type:Provider Instructions for Treatment How to access health informa tion online Indication:VITAMIN D DEFICIENCY Start:07-Aug-2015 Instruction Type:Patient Education How to access health informa tion online - Detail Indication:VITAMIN D DEFICIENCY Start:07-Aug-2015 Instruction Type:Patient Education Patient Instructions Indication:VITAMIN D DEFICIENCY Start:07-Aug-2015 Instruction Type:Provider Instructions for Treatment How to access health informa tion online Indication:postmenopausal without estrogen Start:22-Jul-2015 Instruction Type:Patient Education How to access health informa tion online - Detail Indication:postmenopausal without estrogen Start:22-Jul-2015 Instruction Type:Patient Education Patient Instructions Indication:postmenopausal without estrogen Start:22-Jul-2015 Instruction Type:Provider Instructions for Treatment Patient Instructions Indication:Physical exam, routine Start:25-Mar-2014 Instruction Type:Provider Instructions for Treatment [facility] Work Phone: Instructions* Name Dates Details How to Access Health Informa tion Online using Patient Portal and [employer] Apps Indication:Non-smoker Start:08-Dec-2020 Instruction Type:Patient Education Patient Instructions Indication:Non-smoker Start:08-Dec-2020 Instruction Type:Provider Instructions for Treatment How to access health informa tion online Indication:Non-smoker Start:20-Aug-2020 Instruction Type:Patient Education How to access health informa tion online - Detail Indication:Non-smoker Start:20-Aug-2020 Instruction Type:Patient Education Patient Instructions Indication:Non-smoker Start:20-Aug-2020 Instruction Type:Provider Instructions for Treatment How to access health informa tion online Indication:Non-smoker Start:04-Apr-2020 Instruction Type:Patient Education How to access health informa tion online - Detail Indication:Non-smoker Start:04-Apr-2020 Instruction Type:Patient Education Patient Instructions Indication:Non-smoker Start:04-Apr-2020 Instruction Type:Provider Instructions for Treatment How to access health informa tion online Indication:VITAMIN D DEFICIENCY Start:07-Aug-2015 Instruction Type:Patient Education How to access health informa tion online - Detail Indication:VITAMIN D DEFICIENCY Start:07-Aug-2015 Instruction Type:Patient Education Patient Instructions Indication:VITAMIN D DEFICIENCY Start:07-Aug-2015 Instruction Type:Provider Instructions for Treatment How to access health informa tion online Indication:postmenopausal without estrogen Start:22-Jul-2015 Instruction Type:Patient Education How to access health informa tion online - Detail Indication:postmenopausal without estrogen Start:22-Jul-2015 Instruction Type:Patient Education Patient Instructions Indication:postmenopausal without estrogen Start:22-Jul-2015 Instruction Type:Provider Instructions for Treatment Patient Instructions Indication:Physical exam, routine Start:25-Mar-2014 Instruction Type:Provider Instructions for Treatment [facility] Work Phone: Instructions* Name Dates Details How to Access Health Informa tion Online using Patient Portal and [employer] Apps Indication:Non-smoker Start:07-May-2021 Instruction Type:Patient Education Patient Instructions Indication:Non-smoker Start:07-May-2021 Instruction Type:Provider Instructions for Treatment How to Access Health Informa tion Online using Patient Portal and [employer] Apps Indication:Non-smoker Start:08-Dec-2020 Instruction Type:Patient Education Patient Instructions Indication:Non-smoker Start:08-Dec-2020 Instruction Type:Provider Instructions for Treatment How to access health informa tion online Indication:Non-smoker Start:20-Aug-2020 Instruction Type:Patient Education How to access health informa tion online - Detail Indication:Non-smoker Start:20-Aug-2020 Instruction Type:Patient Education Patient Instructions Indication:Non-smoker Start:20-Aug-2020 Instruction Type:Provider Instructions for Treatment How to access health informa tion online Indication:Non-smoker Start:04-Apr-2020 Instruction Type:Patient Education How to access health informa tion online - Detail Indication:Non-smoker Start:04-Apr-2020 Instruction Type:Patient Education Patient Instructions Indication:Non-smoker Start:04-Apr-2020 Instruction Type:Provider Instructions for Treatment How to access health informa tion online Indication:VITAMIN D DEFICIENCY Start:07-Aug-2015 Instruction Type:Patient Education How to access health informa tion online - Detail Indication:VITAMIN D DEFICIENCY Start:07-Aug-2015 Instruction Type:Patient Education Patient Instructions Indication:VITAMIN D DEFICIENCY Start:07-Aug-2015 Instruction Type:Provider Instructions for Treatment How to access health informa tion online Indication:postmenopausal without estrogen Start:22-Jul-2015 Instruction Type:Patient Education How to access health informa tion online - Detail Indication:postmenopausal without estrogen Start:22-Jul-2015 Instruction Type:Patient Education Patient Instructions Indication:postmenopausal without estrogen Start:22-Jul-2015 Instruction Type:Provider Instructions for Treatment Patient Instructions Indication:Physical exam, routine Start:25-Mar-2014 Instruction Type:Provider Instructions for Treatment [facility] Work Phone: Instructions* Name Dates Details Patient Instructions Indication:Chest pain Start:09-Jun-2021 Instruction Type:Provider Instructions for Treatment How to Access Health Informa tion Online using Patient Portal and [employer]rd [employer] Apps Indication:Chest pain Start:09-Jun-2021 Instruction Type:Patient Education How to Access Health Informa tion Online using Patient Portal and [employer] Apps Indication:Non-smoker Start:08-Dec-2020 Instruction Type:Patient Education Patient Instructions Indication:Non-smoker Start:08-Dec-2020 Instruction Type:Provider Instructions for Treatment How to access health informa tion online Indication:Non-smoker Start:20-Aug-2020 Instruction Type:Patient Education How to access health informa tion online - Detail Indication:Non-smoker Start:20-Aug-2020 Instruction Type:Patient Education Patient Instructions Indication:Non-smoker Start:20-Aug-2020 Instruction Type:Provider Instructions for Treatment How to access health informa tion online Indication:Non-smoker Start:04-Apr-2020 Instruction Type:Patient Education How to access health informa tion online - Detail Indication:Non-smoker Start:04-Apr-2020 Instruction Type:Patient Education Patient Instructions Indication:Non-smoker Start:04-Apr-2020 Instruction Type:Provider Instructions for Treatment How to access health informa tion online Indication:VITAMIN D DEFICIENCY Start:07-Aug-2015 Instruction Type:Patient Education How to access health informa tion online - Detail Indication:VITAMIN D DEFICIENCY Start:07-Aug-2015 Instruction Type:Patient Education Patient Instructions Indication:VITAMIN D DEFICIENCY Start:07-Aug-2015 Instruction Type:Provider Instructions for Treatment How to access health informa tion online Indication:postmenopausal without estrogen Start:22-Jul-2015 Instruction Type:Patient Education How to access health informa tion online - Detail Indication:postmenopausal without estrogen Start:22-Jul-2015 Instruction Type:Patient Education Patient Instructions Indication:postmenopausal without estrogen Start:22-Jul-2015 Instruction Type:Provider Instructions for Treatment Patient Instructions Indication:Physical exam, routine Start:25-Mar-2014 Instruction Type:Provider Instructions for Treatment [facility] Work Phone: Instructions* Name Dates Details Patient Instructions Indication:Chest pain Start:09-Jun-2021 Instruction Type:Provider Instructions for Treatment How to Access Health Informa tion Online using Patient Portal and [employer]rd [employer] Apps Indication:Chest pain Start:09-Jun-2021 Instruction Type:Patient Education How to Access Health Informa tion Online using Patient Portal and [employer] Apps Indication:Non-smoker Start:08-Dec-2020 Instruction Type:Patient Education Patient Instructions Indication:Non-smoker Start:08-Dec-2020 Instruction Type:Provider Instructions for Treatment How to access health informa tion online Indication:Non-smoker Start:20-Aug-2020 Instruction Type:Patient Education How to access health informa tion online - Detail Indication:Non-smoker Start:20-Aug-2020 Instruction Type:Patient Education Patient Instructions Indication:Non-smoker Start:20-Aug-2020 Instruction Type:Provider Instructions for Treatment How to access health informa tion online Indication:Non-smoker Start:04-Apr-2020 Instruction Type:Patient Education How to access health informa tion online - Detail Indication:Non-smoker Start:04-Apr-2020 Instruction Type:Patient Education Patient Instructions Indication:Non-smoker Start:04-Apr-2020 Instruction Type:Provider Instructions for Treatment How to access health informa tion online Indication:VITAMIN D DEFICIENCY Start:07-Aug-2015 Instruction Type:Patient Education How to access health informa tion online - Detail Indication:VITAMIN D DEFICIENCY Start:07-Aug-2015 Instruction Type:Patient Education Patient Instructions Indication:VITAMIN D DEFICIENCY Start:07-Aug-2015 Instruction Type:Provider Instructions for Treatment How to access health informa tion online Indication:postmenopausal without estrogen Start:22-Jul-2015 Instruction Type:Patient Education How to access health informa tion online - Detail Indication:postmenopausal without estrogen Start:22-Jul-2015 Instruction Type:Patient Education Patient Instructions Indication:postmenopausal without estrogen Start:22-Jul-2015 Instruction Type:Provider Instructions for Treatment Patient Instructions Indication:Physical exam, routine Start:25-Mar-2014 Instruction Type:Provider Instructions for Treatment [facility] Work Phone: Instructions* Name Dates Details Patient Instructions Indication:Chest pain Start:09-Jun-2021 Instruction Type:Provider Instructions for Treatment How to Access Health Informa tion Online using Patient Portal and [employer]rd [employer] Apps Indication:Chest pain Start:09-Jun-2021 Instruction Type:Patient Education How to Access Health Informa tion Online using Patient Portal and [employer]rd [employer] Apps Indication:Non-smoker Start:08-Dec-2020 Instruction Type:Patient Education Patient Instructions Indication:Non-smoker Start:08-Dec-2020 Instruction Type:Provider Instructions for Treatment How to access health informa tion online Indication:Non-smoker Start:20-Aug-2020 Instruction Type:Patient Education How to access health informa tion online - Detail Indication:Non-smoker Start:20-Aug-2020 Instruction Type:Patient Education Patient Instructions Indication:Non-smoker Start:20-Aug-2020 Instruction Type:Provider Instructions for Treatment How to access health informa tion online Indication:Non-smoker Start:04-Apr-2020 Instruction Type:Patient Education How to access health informa tion online - Detail Indication:Non-smoker Start:04-Apr-2020 Instruction Type:Patient Education Patient Instructions Indication:Non-smoker Start:04-Apr-2020 Instruction Type:Provider Instructions for Treatment How to access health informa tion online Indication:VITAMIN D DEFICIENCY Start:07-Aug-2015 Instruction Type:Patient Education How to access health informa tion online - Detail Indication:VITAMIN D DEFICIENCY Start:07-Aug-2015 Instruction Type:Patient Education Patient Instructions Indication:VITAMIN D DEFICIENCY Start:07-Aug-2015 Instruction Type:Provider Instructions for Treatment How to access health informa tion online Indication:postmenopausal without estrogen Start:22-Jul-2015 Instruction Type:Patient Education How to access health informa tion online - Detail Indication:postmenopausal without estrogen Start:22-Jul-2015 Instruction Type:Patient Education Patient Instructions Indication:postmenopausal without estrogen Start:22-Jul-2015 Instruction Type:Provider Instructions for Treatment Patient Instructions Indication:Physical exam, routine Start:25-Mar-2014 Instruction Type:Provider Instructions for Treatment [facility]; [facility] Work Phone: Instructions* Name Dates Details Patient Instructions Indication:Non-smoker Start:14-Jul-2021 Instruction Type:Provider Instructions for Treatment How to Access Health Informa tion Online using Patient Portal and [employer]rd [employer] Apps Indication:Non-smoker Start:14-Jul-2021 Instruction Type:Patient Education Patient Instructions Indication:Chest pain Start:09-Jun-2021 Instruction Type:Provider Instructions for Treatment How to Access Health Informa tion Online using Patient Portal and [employer]rd [employer] Apps Indication:Chest pain Start:09-Jun-2021 Instruction Type:Patient Education How to Access Health Informa tion Online using Patient Portal and [employer] Apps Indication:Non-smoker Start:08-Dec-2020 Instruction Type:Patient Education Patient Instructions Indication:Non-smoker Start:08-Dec-2020 Instruction Type:Provider Instructions for Treatment How to access health informa tion online Indication:Non-smoker Start:20-Aug-2020 Instruction Type:Patient Education How to access health informa tion online - Detail Indication:Non-smoker Start:20-Aug-2020 Instruction Type:Patient Education Patient Instructions Indication:Non-smoker Start:20-Aug-2020 Instruction Type:Provider Instructions for Treatment How to access health informa tion online Indication:Non-smoker Start:04-Apr-2020 Instruction Type:Patient Education How to access health informa tion online - Detail Indication:Non-smoker Start:04-Apr-2020 Instruction Type:Patient Education Patient Instructions Indication:Non-smoker Start:04-Apr-2020 Instruction Type:Provider Instructions for Treatment How to access health informa tion online Indication:VITAMIN D DEFICIENCY Start:07-Aug-2015 Instruction Type:Patient Education How to access health informa tion online - Detail Indication:VITAMIN D DEFICIENCY Start:07-Aug-2015 Instruction Type:Patient Education Patient Instructions Indication:VITAMIN D DEFICIENCY Start:07-Aug-2015 Instruction Type:Provider Instructions for Treatment How to access health informa tion online Indication:postmenopausal without estrogen Start:22-Jul-2015 Instruction Type:Patient Education How to access health informa tion online - Detail Indication:postmenopausal without estrogen Start:22-Jul-2015 Instruction Type:Patient Education Patient Instructions Indication:postmenopausal without estrogen Start:22-Jul-2015 Instruction Type:Provider Instructions for Treatment Patient Instructions Indication:Physical exam, routine Start:25-Mar-2014 Instruction Type:Provider Instructions for Treatment [facility]; [facility] Work Phone: Instructions* Name Dates Details Patient Instructions Indication:Non-smoker Start:14-Jul-2021 Instruction Type:Provider Instructions for Treatment How to Access Health Informa tion Online using Patient Portal and [employer]rd [employer] Apps Indication:Non-smoker Start:14-Jul-2021 Instruction Type:Patient Education Patient Instructions Indication:Chest pain Start:09-Jun-2021 Instruction Type:Provider Instructions for Treatment How to Access Health Informa tion Online using Patient Portal and [employer] Apps Indication:Chest pain Start:09-Jun-2021 Instruction Type:Patient Education How to Access Health Informa tion Online using Patient Portal and [employer] Apps Indication:Non-smoker Start:08-Dec-2020 Instruction Type:Patient Education Patient Instructions Indication:Non-smoker Start:08-Dec-2020 Instruction Type:Provider Instructions for Treatment How to access health informa tion online Indication:Non-smoker Start:20-Aug-2020 Instruction Type:Patient Education How to access health informa tion online - Detail Indication:Non-smoker Start:20-Aug-2020 Instruction Type:Patient Education Patient Instructions Indication:Non-smoker Start:20-Aug-2020 Instruction Type:Provider Instructions for Treatment How to access health informa tion online Indication:Non-smoker Start:04-Apr-2020 Instruction Type:Patient Education How to access health informa tion online - Detail Indication:Non-smoker Start:04-Apr-2020 Instruction Type:Patient Education Patient Instructions Indication:Non-smoker Start:04-Apr-2020 Instruction Type:Provider Instructions for Treatment How to access health informa tion online Indication:VITAMIN D DEFICIENCY Start:07-Aug-2015 Instruction Type:Patient Education How to access health informa tion online - Detail Indication:VITAMIN D DEFICIENCY Start:07-Aug-2015 Instruction Type:Patient Education Patient Instructions Indication:VITAMIN D DEFICIENCY Start:07-Aug-2015 Instruction Type:Provider Instructions for Treatment How to access health informa tion online Indication:postmenopausal without estrogen Start:22-Jul-2015 Instruction Type:Patient Education How to access health informa tion online - Detail Indication:postmenopausal without estrogen Start:22-Jul-2015 Instruction Type:Patient Education Patient Instructions Indication:postmenopausal without estrogen Start:22-Jul-2015 Instruction Type:Provider Instructions for Treatment Patient Instructions Indication:Physical exam, routine Start:25-Mar-2014 Instruction Type:Provider Instructions for Treatment [facility]; [facility] Work Phone: Instructions* Name Dates Details Patient Instructions Indication:Non-smoker Start:14-Jul-2021 Instruction Type:Provider Instructions for Treatment How to Access Health Informa tion Online using Patient Portal and [employer]rd [employer] Apps Indication:Non-smoker Start:14-Jul-2021 Instruction Type:Patient Education Patient Instructions Indication:Chest pain Start:09-Jun-2021 Instruction Type:Provider Instructions for Treatment How to Access Health Informa tion Online using Patient Portal and [employer] Apps Indication:Chest pain Start:09-Jun-2021 Instruction Type:Patient Education How to Access Health Informa tion Online using Patient Portal and [employer] Apps Indication:Non-smoker Start:08-Dec-2020 Instruction Type:Patient Education Patient Instructions Indication:Non-smoker Start:08-Dec-2020 Instruction Type:Provider Instructions for Treatment How to access health informa tion online Indication:Non-smoker Start:20-Aug-2020 Instruction Type:Patient Education How to access health informa tion online - Detail Indication:Non-smoker Start:20-Aug-2020 Instruction Type:Patient Education Patient Instructions Indication:Non-smoker Start:20-Aug-2020 Instruction Type:Provider Instructions for Treatment How to access health informa tion online Indication:Non-smoker Start:04-Apr-2020 Instruction Type:Patient Education How to access health informa tion online - Detail Indication:Non-smoker Start:04-Apr-2020 Instruction Type:Patient Education Patient Instructions Indication:Non-smoker Start:04-Apr-2020 Instruction Type:Provider Instructions for Treatment How to access health informa tion online Indication:VITAMIN D DEFICIENCY Start:07-Aug-2015 Instruction Type:Patient Education How to access health informa tion online - Detail Indication:VITAMIN D DEFICIENCY Start:07-Aug-2015 Instruction Type:Patient Education Patient Instructions Indication:VITAMIN D DEFICIENCY Start:07-Aug-2015 Instruction Type:Provider Instructions for Treatment How to access health informa tion online Indication:postmenopausal without estrogen Start:22-Jul-2015 Instruction Type:Patient Education How to access health informa tion online - Detail Indication:postmenopausal without estrogen Start:22-Jul-2015 Instruction Type:Patient Education Patient Instructions Indication:postmenopausal without estrogen Start:22-Jul-2015 Instruction Type:Provider Instructions for Treatment Patient Instructions Indication:Physical exam, routine Start:25-Mar-2014 Instruction Type:Provider Instructions for Treatment [facility]; [facility] Work Phone: Instructions* Name Dates Details Patient Instructions Indication:Non-smoker Start:14-Jul-2021 Instruction Type:Provider Instructions for Treatment How to Access Health Informa tion Online using Patient Portal and [employer] Apps Indication:Non-smoker Start:14-Jul-2021 Instruction Type:Patient Education Patient Instructions Indication:Chest pain Start:09-Jun-2021 Instruction Type:Provider Instructions for Treatment How to Access Health Informa tion Online using Patient Portal and [employer] Apps Indication:Chest pain Start:09-Jun-2021 Instruction Type:Patient Education How to Access Health Informa tion Online using Patient Portal and [employer] Apps Indication:Non-smoker Start:08-Dec-2020 Instruction Type:Patient Education Patient Instructions Indication:Non-smoker Start:08-Dec-2020 Instruction Type:Provider Instructions for Treatment How to access health informa tion online Indication:Non-smoker Start:20-Aug-2020 Instruction Type:Patient Education How to access health informa tion online - Detail Indication:Non-smoker Start:20-Aug-2020 Instruction Type:Patient Education Patient Instructions Indication:Non-smoker Start:20-Aug-2020 Instruction Type:Provider Instructions for Treatment How to access health informa tion online Indication:Non-smoker Start:04-Apr-2020 Instruction Type:Patient Education How to access health informa tion online - Detail Indication:Non-smoker Start:04-Apr-2020 Instruction Type:Patient Education Patient Instructions Indication:Non-smoker Start:04-Apr-2020 Instruction Type:Provider Instructions for Treatment How to access health informa tion online Indication:VITAMIN D DEFICIENCY Start:07-Aug-2015 Instruction Type:Patient Education How to access health informa tion online - Detail Indication:VITAMIN D DEFICIENCY Start:07-Aug-2015 Instruction Type:Patient Education Patient Instructions Indication:VITAMIN D DEFICIENCY Start:07-Aug-2015 Instruction Type:Provider Instructions for Treatment How to access health informa tion online Indication:postmenopausal without estrogen Start:22-Jul-2015 Instruction Type:Patient Education How to access health informa tion online - Detail Indication:postmenopausal without estrogen Start:22-Jul-2015 Instruction Type:Patient Education Patient Instructions Indication:postmenopausal without estrogen Start:22-Jul-2015 Instruction Type:Provider Instructions for Treatment Patient Instructions Indication:Physical exam, routine Start:25-Mar-2014 Instruction Type:Provider Instructions for Treatment [facility]; [facility] Work Phone: Instructions* Name Dates Details Patient Instructions Indication:Hyperlipidemia Start:29-Dec-2021 Instruction Type:Provider Instructions for Treatment How to Access Health Informa tion Online using Patient Portal and [employer] Apps Indication:Hyperlipidemia Start:29-Dec-2021 Instruction Type:Patient Education Patient Instructions Indication:Non-smoker Start:14-Jul-2021 Instruction Type:Provider Instructions for Treatment How to Access Health Informa tion Online using Patient Portal and [employer] Apps Indication:Non-smoker Start:14-Jul-2021 Instruction Type:Patient Education Patient Instructions Indication:Chest pain Start:09-Jun-2021 Instruction Type:Provider Instructions for Treatment How to Access Health Informa tion Online using Patient Portal and [employer] Apps Indication:Chest pain Start:09-Jun-2021 Instruction Type:Patient Education How to Access Health Informa tion Online using Patient Portal and [employer] Apps Indication:Non-smoker Start:08-Dec-2020 Instruction Type:Patient Education Patient Instructions Indication:Non-smoker Start:08-Dec-2020 Instruction Type:Provider Instructions for Treatment How to access health informa tion online Indication:Non-smoker Start:20-Aug-2020 Instruction Type:Patient Education How to access health informa tion online - Detail Indication:Non-smoker Start:20-Aug-2020 Instruction Type:Patient Education Patient Instructions Indication:Non-smoker Start:20-Aug-2020 Instruction Type:Provider Instructions for Treatment How to access health informa tion online Indication:Non-smoker Start:04-Apr-2020 Instruction Type:Patient Education How to access health informa tion online - Detail Indication:Non-smoker Start:04-Apr-2020 Instruction Type:Patient Education Patient Instructions Indication:Non-smoker Start:04-Apr-2020 Instruction Type:Provider Instructions for Treatment How to access health informa tion online Indication:VITAMIN D DEFICIENCY Start:07-Aug-2015 Instruction Type:Patient Education How to access health informa tion online - Detail Indication:VITAMIN D DEFICIENCY Start:07-Aug-2015 Instruction Type:Patient Education Patient Instructions Indication:VITAMIN D DEFICIENCY Start:07-Aug-2015 Instruction Type:Provider Instructions for Treatment How to access health informa tion online Indication:postmenopausal without estrogen Start:22-Jul-2015 Instruction Type:Patient Education How to access health informa tion online - Detail Indication:postmenopausal without estrogen Start:22-Jul-2015 Instruction Type:Patient Education Patient Instructions Indication:postmenopausal without estrogen Start:22-Jul-2015 Instruction Type:Provider Instructions for Treatment Patient Instructions Indication:Physical exam, routine Start:25-Mar-2014 Instruction Type:Provider Instructions for Treatment [facility]; [facility] Work Phone: Instructions* Name Dates Details Patient Instructions Indication:Hyperlipidemia Start:29-Dec-2021 Instruction Type:Provider Instructions for Treatment How to Access Health Informa tion Online using Patient Portal and [employer] Apps Indication:Hyperlipidemia Start:29-Dec-2021 Instruction Type:Patient Education Patient Instructions Indication:Non-smoker Start:14-Jul-2021 Instruction Type:Provider Instructions for Treatment How to Access Health Informa tion Online using Patient Portal and [employer] Apps Indication:Non-smoker Start:14-Jul-2021 Instruction Type:Patient Education Patient Instructions Indication:Chest pain Start:09-Jun-2021 Instruction Type:Provider Instructions for Treatment How to Access Health Informa tion Online using Patient Portal and [employer] Apps Indication:Chest pain Start:09-Jun-2021 Instruction Type:Patient Education How to Access Health Informa tion Online using Patient Portal and [employer] Apps Indication:Non-smoker Start:08-Dec-2020 Instruction Type:Patient Education Patient Instructions Indication:Non-smoker Start:08-Dec-2020 Instruction Type:Provider Instructions for Treatment How to access health informa tion online Indication:Non-smoker Start:20-Aug-2020 Instruction Type:Patient Education How to access health informa tion online - Detail Indication:Non-smoker Start:20-Aug-2020 Instruction Type:Patient Education Patient Instructions Indication:Non-smoker Start:20-Aug-2020 Instruction Type:Provider Instructions for Treatment How to access health informa tion online Indication:Non-smoker Start:04-Apr-2020 Instruction Type:Patient Education How to access health informa tion online - Detail Indication:Non-smoker Start:04-Apr-2020 Instruction Type:Patient Education Patient Instructions Indication:Non-smoker Start:04-Apr-2020 Instruction Type:Provider Instructions for Treatment How to access health informa tion online Indication:VITAMIN D DEFICIENCY Start:07-Aug-2015 Instruction Type:Patient Education How to access health informa tion online - Detail Indication:VITAMIN D DEFICIENCY Start:07-Aug-2015 Instruction Type:Patient Education Patient Instructions Indication:VITAMIN D DEFICIENCY Start:07-Aug-2015 Instruction Type:Provider Instructions for Treatment How to access health informa tion online Indication:postmenopausal without estrogen Start:22-Jul-2015 Instruction Type:Patient Education How to access health informa tion online - Detail Indication:postmenopausal without estrogen Start:22-Jul-2015 Instruction Type:Patient Education Patient Instructions Indication:postmenopausal without estrogen Start:22-Jul-2015 Instruction Type:Provider Instructions for Treatment Patient Instructions Indication:Physical exam, routine Start:25-Mar-2014 Instruction Type:Provider Instructions for Treatment [facility]; [facility] Work Phone: Instructions* Name Dates Details Patient Instructions Indication:Unspecified Diagnosis Start:28-Apr-2022 Instruction Type:Provider Instructions for Treatment How to Access Health Informa tion Online using Patient Portal and [employer]rd [employer] Apps Indication:Unspecified Diagnosis Start:28-Apr-2022 Instruction Type:Patient Education Patient Instructions Indication:Hyperlipidemia Start:29-Dec-2021 Instruction Type:Provider Instructions for Treatment How to Access Health Informa tion Online using Patient Portal and [employer] Apps Indication:Hyperlipidemia Start:29-Dec-2021 Instruction Type:Patient Education Patient Instructions Indication:Non-smoker Start:14-Jul-2021 Instruction Type:Provider Instructions for Treatment How to Access Health Informa tion Online using Patient Portal and [employer] Apps Indication:Non-smoker Start:14-Jul-2021 Instruction Type:Patient Education Patient Instructions Indication:Chest pain Start:09-Jun-2021 Instruction Type:Provider Instructions for Treatment How to Access Health Informa tion Online using Patient Portal and [employer] Apps Indication:Chest pain Start:09-Jun-2021 Instruction Type:Patient Education How to Access Health Informa tion Online using Patient Portal and [employer] Apps Indication:Non-smoker Start:08-Dec-2020 Instruction Type:Patient Education Patient Instructions Indication:Non-smoker Start:08-Dec-2020 Instruction Type:Provider Instructions for Treatment How to access health informa tion online Indication:Non-smoker Start:20-Aug-2020 Instruction Type:Patient Education How to access health informa tion online - Detail Indication:Non-smoker Start:20-Aug-2020 Instruction Type:Patient Education Patient Instructions Indication:Non-smoker Start:20-Aug-2020 Instruction Type:Provider Instructions for Treatment How to access health informa tion online Indication:Non-smoker Start:04-Apr-2020 Instruction Type:Patient Education How to access health informa tion online - Detail Indication:Non-smoker Start:04-Apr-2020 Instruction Type:Patient Education Patient Instructions Indication:Non-smoker Start:04-Apr-2020 Instruction Type:Provider Instructions for Treatment How to access health informa tion online Indication:VITAMIN D DEFICIENCY Start:07-Aug-2015 Instruction Type:Patient Education How to access health informa tion online - Detail Indication:VITAMIN D DEFICIENCY Start:07-Aug-2015 Instruction Type:Patient Education Patient Instructions Indication:VITAMIN D DEFICIENCY Start:07-Aug-2015 Instruction Type:Provider Instructions for Treatment How to access health informa tion online Indication:postmenopausal without estrogen Start:22-Jul-2015 Instruction Type:Patient Education How to access health informa tion online - Detail Indication:postmenopausal without estrogen Start:22-Jul-2015 Instruction Type:Patient Education Patient Instructions Indication:postmenopausal without estrogen Start:22-Jul-2015 Instruction Type:Provider Instructions for Treatment Patient Instructions Indication:Physical exam, routine Start:25-Mar-2014 Instruction Type:Provider Instructions for Treatment [facility]; [facility] Work Phone: Instructions* Name Dates Details Patient Instructions Indication:COVID Start:28-Apr-2022 Instruction Type:Provider Instructions for Treatment How to Access Health Informa tion Online using Patient Portal and [employer] Apps Indication:COVID Start:28-Apr-2022 Instruction Type:Patient Education Patient Instructions Indication:Hyperlipidemia Start:29-Dec-2021 Instruction Type:Provider Instructions for Treatment How to Access Health Informa tion Online using Patient Portal and [employer] Apps Indication:Hyperlipidemia Start:29-Dec-2021 Instruction Type:Patient Education Patient Instructions Indication:Non-smoker Start:14-Jul-2021 Instruction Type:Provider Instructions for Treatment How to Access Health Informa tion Online using Patient Portal and [employer] Apps Indication:Non-smoker Start:14-Jul-2021 Instruction Type:Patient Education Patient Instructions Indication:Chest pain Start:09-Jun-2021 Instruction Type:Provider Instructions for Treatment How to Access Health Informa tion Online using Patient Portal and [employer] Apps Indication:Chest pain Start:09-Jun-2021 Instruction Type:Patient Education How to Access Health Informa tion Online using Patient Portal and [employer] Apps Indication:Non-smoker Start:08-Dec-2020 Instruction Type:Patient Education Patient Instructions Indication:Non-smoker Start:08-Dec-2020 Instruction Type:Provider Instructions for Treatment How to access health informa tion online Indication:Non-smoker Start:20-Aug-2020 Instruction Type:Patient Education How to access health informa tion online - Detail Indication:Non-smoker Start:20-Aug-2020 Instruction Type:Patient Education Patient Instructions Indication:Non-smoker Start:20-Aug-2020 Instruction Type:Provider Instructions for Treatment How to access health informa tion online Indication:Non-smoker Start:04-Apr-2020 Instruction Type:Patient Education How to access health informa tion online - Detail Indication:Non-smoker Start:04-Apr-2020 Instruction Type:Patient Education Patient Instructions Indication:Non-smoker Start:04-Apr-2020 Instruction Type:Provider Instructions for Treatment How to access health informa tion online Indication:VITAMIN D DEFICIENCY Start:07-Aug-2015 Instruction Type:Patient Education How to access health informa tion online - Detail Indication:VITAMIN D DEFICIENCY Start:07-Aug-2015 Instruction Type:Patient Education Patient Instructions Indication:VITAMIN D DEFICIENCY Start:07-Aug-2015 Instruction Type:Provider Instructions for Treatment How to access health informa tion online Indication:postmenopausal without estrogen Start:22-Jul-2015 Instruction Type:Patient Education How to access health informa tion online - Detail Indication:postmenopausal without estrogen Start:22-Jul-2015 Instruction Type:Patient Education Patient Instructions Indication:postmenopausal without estrogen Start:22-Jul-2015 Instruction Type:Provider Instructions for Treatment Patient Instructions Indication:Physical exam, routine Start:25-Mar-2014 Instruction Type:Provider Instructions for Treatment [facility]; [facility] Work Phone: Instructions* Name Dates Details Patient Instructions Indication:BMI 24.0-24.9, adult Start:09-Jul-2022 Instruction Type:Provider Instructions for Treatment How to Access Health Informa tion Online using Patient Portal and [employer] Apps Indication:BMI 24.0-24.9, adult Start:09-Jul-2022 Instruction Type:Patient Education Patient Instructions Indication:COVID Start:28-Apr-2022 Instruction Type:Provider Instructions for Treatment How to Access Health Informa tion Online using Patient Portal and [employer] Apps Indication:COVID Start:28-Apr-2022 Instruction Type:Patient Education Patient Instructions Indication:Hyperlipidemia Start:29-Dec-2021 Instruction Type:Provider Instructions for Treatment How to Access Health Informa tion Online using Patient Portal and [employer] Apps Indication:Hyperlipidemia Start:29-Dec-2021 Instruction Type:Patient Education Patient Instructions Indication:Non-smoker Start:14-Jul-2021 Instruction Type:Provider Instructions for Treatment How to Access Health Informa tion Online using Patient Portal and [employer] Apps Indication:Non-smoker Start:14-Jul-2021 Instruction Type:Patient Education Patient Instructions Indication:Chest pain Start:09-Jun-2021 Instruction Type:Provider Instructions for Treatment How to Access Health Informa tion Online using Patient Portal and [employer]rd [employer] Apps Indication:Chest pain Start:09-Jun-2021 Instruction Type:Patient Education How to Access Health Informa tion Online using Patient Portal and [employer]rd [employer] Apps Indication:Non-smoker Start:08-Dec-2020 Instruction Type:Patient Education Patient Instructions Indication:Non-smoker Start:08-Dec-2020 Instruction Type:Provider Instructions for Treatment How to access health informa tion online Indication:Non-smoker Start:20-Aug-2020 Instruction Type:Patient Education How to access health informa tion online - Detail Indication:Non-smoker Start:20-Aug-2020 Instruction Type:Patient Education Patient Instructions Indication:Non-smoker Start:20-Aug-2020 Instruction Type:Provider Instructions for Treatment How to access health informa tion online Indication:Non-smoker Start:04-Apr-2020 Instruction Type:Patient Education How to access health informa tion online - Detail Indication:Non-smoker Start:04-Apr-2020 Instruction Type:Patient Education Patient Instructions Indication:Non-smoker Start:04-Apr-2020 Instruction Type:Provider Instructions for Treatment How to access health informa tion online Indication:VITAMIN D DEFICIENCY Start:07-Aug-2015 Instruction Type:Patient Education How to access health informa tion online - Detail Indication:VITAMIN D DEFICIENCY Start:07-Aug-2015 Instruction Type:Patient Education Patient Instructions Indication:VITAMIN D DEFICIENCY Start:07-Aug-2015 Instruction Type:Provider Instructions for Treatment How to access health informa tion online Indication:postmenopausal without estrogen Start:22-Jul-2015 Instruction Type:Patient Education How to access health informa tion online - Detail Indication:postmenopausal without estrogen Start:22-Jul-2015 Instruction Type:Patient Education Patient Instructions Indication:postmenopausal without estrogen Start:22-Jul-2015 Instruction Type:Provider Instructions for Treatment Patient Instructions Indication:Physical exam, routine Start:25-Mar-2014 Instruction Type:Provider Instructions for Treatment [facility]; [facility] Work Phone: Instructions* Name Dates Details Patient Instructions Indication:BMI 24.0-24.9, adult Start:09-Jul-2022 Instruction Type:Provider Instructions for Treatment How to Access Health Informa tion Online using Patient Portal and [employer]rd [employer] Apps Indication:BMI 24.0-24.9, adult Start:09-Jul-2022 Instruction Type:Patient Education Patient Instructions Indication:COVID Start:28-Apr-2022 Instruction Type:Provider Instructions for Treatment How to Access Health Informa tion Online using Patient Portal and [employer]rd [employer] Apps Indication:COVID Start:28-Apr-2022 Instruction Type:Patient Education Patient Instructions Indication:Hyperlipidemia Start:29-Dec-2021 Instruction Type:Provider Instructions for Treatment How to Access Health Informa tion Online using Patient Portal and [employer]rd [employer] Apps Indication:Hyperlipidemia Start:29-Dec-2021 Instruction Type:Patient Education Patient Instructions Indication:Non-smoker Start:14-Jul-2021 Instruction Type:Provider Instructions for Treatment How to Access Health Informa tion Online using Patient Portal and [employer] Apps Indication:Non-smoker Start:14-Jul-2021 Instruction Type:Patient Education Patient Instructions Indication:Chest pain Start:09-Jun-2021 Instruction Type:Provider Instructions for Treatment How to Access Health Informa tion Online using Patient Portal and [employer]rd [employer] Apps Indication:Chest pain Start:09-Jun-2021 Instruction Type:Patient Education How to Access Health Informa tion Online using Patient Portal and [employer] Apps Indication:Non-smoker Start:08-Dec-2020 Instruction Type:Patient Education Patient Instructions Indication:Non-smoker Start:08-Dec-2020 Instruction Type:Provider Instructions for Treatment How to access health informa tion online Indication:Non-smoker Start:20-Aug-2020 Instruction Type:Patient Education How to access health informa tion online - Detail Indication:Non-smoker Start:20-Aug-2020 Instruction Type:Patient Education Patient Instructions Indication:Non-smoker Start:20-Aug-2020 Instruction Type:Provider Instructions for Treatment How to access health informa tion online Indication:Non-smoker Start:04-Apr-2020 Instruction Type:Patient Education How to access health informa tion online - Detail Indication:Non-smoker Start:04-Apr-2020 Instruction Type:Patient Education Patient Instructions Indication:Non-smoker Start:04-Apr-2020 Instruction Type:Provider Instructions for Treatment How to access health informa tion online Indication:VITAMIN D DEFICIENCY Start:07-Aug-2015 Instruction Type:Patient Education How to access health informa tion online - Detail Indication:VITAMIN D DEFICIENCY Start:07-Aug-2015 Instruction Type:Patient Education Patient Instructions Indication:VITAMIN D DEFICIENCY Start:07-Aug-2015 Instruction Type:Provider Instructions for Treatment How to access health informa tion online Indication:postmenopausal without estrogen Start:22-Jul-2015 Instruction Type:Patient Education How to access health informa tion online - Detail Indication:postmenopausal without estrogen Start:22-Jul-2015 Instruction Type:Patient Education Patient Instructions Indication:postmenopausal without estrogen Start:22-Jul-2015 Instruction Type:Provider Instructions for Treatment Patient Instructions Indication:Physical exam, routine Start:25-Mar-2014 Instruction Type:Provider Instructions for Treatment [facility]; [facility] Work Phone: Instructions* Name Dates Details Patient Instructions Indication:Non-smoker Start:11-Jan-2023 Instruction Type:Provider Instructions for Treatment How to Access Health Informa tion Online using Patient Portal and [employer]rd [employer] Apps Indication:Non-smoker Start:11-Jan-2023 Instruction Type:Patient Education Patient Instructions Indication:BMI 24.0-24.9, adult Start:09-Jul-2022 Instruction Type:Provider Instructions for Treatment How to Access Health Informa tion Online using Patient Portal and [employer]rd [employer] Apps Indication:BMI 24.0-24.9, adult Start:09-Jul-2022 Instruction Type:Patient Education Patient Instructions Indication:COVID Start:28-Apr-2022 Instruction Type:Provider Instructions for Treatment How to Access Health Informa tion Online using Patient Portal and [employer] Apps Indication:COVID Start:28-Apr-2022 Instruction Type:Patient Education Patient Instructions Indication:Hyperlipidemia Start:29-Dec-2021 Instruction Type:Provider Instructions for Treatment How to Access Health Informa tion Online using Patient Portal and [employer]rd [employer] Apps Indication:Hyperlipidemia Start:29-Dec-2021 Instruction Type:Patient Education Patient Instructions Indication:Non-smoker Start:14-Jul-2021 Instruction Type:Provider Instructions for Treatment How to Access Health Informa tion Online using Patient Portal and [employer] Apps Indication:Non-smoker Start:14-Jul-2021 Instruction Type:Patient Education Patient Instructions Indication:Chest pain Start:09-Jun-2021 Instruction Type:Provider Instructions for Treatment How to Access Health Informa tion Online using Patient Portal and [employer]rd [employer] Apps Indication:Chest pain Start:09-Jun-2021 Instruction Type:Patient Education How to Access Health Informa tion Online using Patient Portal and [employer] Apps Indication:Non-smoker Start:08-Dec-2020 Instruction Type:Patient Education Patient Instructions Indication:Non-smoker Start:08-Dec-2020 Instruction Type:Provider Instructions for Treatment How to access health informa tion online Indication:Non-smoker Start:20-Aug-2020 Instruction Type:Patient Education How to access health informa tion online - Detail Indication:Non-smoker Start:20-Aug-2020 Instruction Type:Patient Education Patient Instructions Indication:Non-smoker Start:20-Aug-2020 Instruction Type:Provider Instructions for Treatment How to access health informa tion online Indication:Non-smoker Start:04-Apr-2020 Instruction Type:Patient Education How to access health informa tion online - Detail Indication:Non-smoker Start:04-Apr-2020 Instruction Type:Patient Education Patient Instructions Indication:Non-smoker Start:04-Apr-2020 Instruction Type:Provider Instructions for Treatment How to access health informa tion online Indication:VITAMIN D DEFICIENCY Start:07-Aug-2015 Instruction Type:Patient Education How to access health informa tion online - Detail Indication:VITAMIN D DEFICIENCY Start:07-Aug-2015 Instruction Type:Patient Education Patient Instructions Indication:VITAMIN D DEFICIENCY Start:07-Aug-2015 Instruction Type:Provider Instructions for Treatment How to access health informa tion online Indication:postmenopausal without estrogen Start:22-Jul-2015 Instruction Type:Patient Education How to access health informa tion online - Detail Indication:postmenopausal without estrogen Start:22-Jul-2015 Instruction Type:Patient Education Patient Instructions Indication:postmenopausal without estrogen Start:22-Jul-2015 Instruction Type:Provider Instructions for Treatment Patient Instructions Indication:Physical exam, routine Start:25-Mar-2014 Instruction Type:Provider Instructions for Treatment [facility] Work Phone: Instructions* Name Dates Details Patient Instructions Indication:Non-smoker Start:11-Jan-2023 Instruction Type:Provider Instructions for Treatment How to Access Health Informa tion Online using Patient Portal and [employer]rd [employer] Apps Indication:Non-smoker Start:11-Jan-2023 Instruction Type:Patient Education Patient Instructions Indication:BMI 24.0-24.9, adult Start:09-Jul-2022 Instruction Type:Provider Instructions for Treatment How to Access Health Informa tion Online using Patient Portal and [employer]rd [employer] Apps Indication:BMI 24.0-24.9, adult Start:09-Jul-2022 Instruction Type:Patient Education Patient Instructions Indication:COVID Start:28-Apr-2022 Instruction Type:Provider Instructions for Treatment How to Access Health Informa tion Online using Patient Portal and [employer]rd [employer] Apps Indication:COVID Start:28-Apr-2022 Instruction Type:Patient Education Patient Instructions Indication:Hyperlipidemia Start:29-Dec-2021 Instruction Type:Provider Instructions for Treatment How to Access Health Informa tion Online using Patient Portal and [employer]rd [employer] Apps Indication:Hyperlipidemia Start:29-Dec-2021 Instruction Type:Patient Education Patient Instructions Indication:Non-smoker Start:14-Jul-2021 Instruction Type:Provider Instructions for Treatment How to Access Health Informa tion Online using Patient Portal and [employer]rd [employer] Apps Indication:Non-smoker Start:14-Jul-2021 Instruction Type:Patient Education Patient Instructions Indication:Chest pain Start:09-Jun-2021 Instruction Type:Provider Instructions for Treatment How to Access Health Informa tion Online using Patient Portal and [employer]rd [employer] Apps Indication:Chest pain Start:09-Jun-2021 Instruction Type:Patient Education How to Access Health Informa tion Online using Patient Portal and [employer]rd [employer] Apps Indication:Non-smoker Start:08-Dec-2020 Instruction Type:Patient Education Patient Instructions Indication:Non-smoker Start:08-Dec-2020 Instruction Type:Provider Instructions for Treatment How to access health informa tion online Indication:Non-smoker Start:20-Aug-2020 Instruction Type:Patient Education How to access health informa tion online - Detail Indication:Non-smoker Start:20-Aug-2020 Instruction Type:Patient Education Patient Instructions Indication:Non-smoker Start:20-Aug-2020 Instruction Type:Provider Instructions for Treatment How to access health informa tion online Indication:Non-smoker Start:04-Apr-2020 Instruction Type:Patient Education How to access health informa tion online - Detail Indication:Non-smoker Start:04-Apr-2020 Instruction Type:Patient Education Patient Instructions Indication:Non-smoker Start:04-Apr-2020 Instruction Type:Provider Instructions for Treatment How to access health informa tion online Indication:VITAMIN D DEFICIENCY Start:07-Aug-2015 Instruction Type:Patient Education How to access health informa tion online - Detail Indication:VITAMIN D DEFICIENCY Start:07-Aug-2015 Instruction Type:Patient Education Patient Instructions Indication:VITAMIN D DEFICIENCY Start:07-Aug-2015 Instruction Type:Provider Instructions for Treatment How to access health informa tion online Indication:postmenopausal without estrogen Start:22-Jul-2015 Instruction Type:Patient Education How to access health informa tion online - Detail Indication:postmenopausal without estrogen Start:22-Jul-2015 Instruction Type:Patient Education Patient Instructions Indication:postmenopausal without estrogen Start:22-Jul-2015 Instruction Type:Provider Instructions for Treatment Patient Instructions Indication:Physical exam, routine Start:25-Mar-2014 Instruction Type:Provider Instructions for Treatment [facility]; [facility] Work Phone: Instructions* Name Dates Details Patient Instructions Indication:Left shoulder pain Start:12-Jul-2023 Instruction Type:Provider Instructions for Treatment How to Access Health Informa tion Online using Patient Portal and [employer]rd [employer] Apps Indication:Left shoulder pain Start:12-Jul-2023 Instruction Type:Patient Education Patient Instructions Indication:Non-smoker Start:11-Jan-2023 Instruction Type:Provider Instructions for Treatment How to Access Health Informa tion Online using Patient Portal and [employer]rd [employer] Apps Indication:Non-smoker Start:11-Jan-2023 Instruction Type:Patient Education Patient Instructions Indication:BMI 24.0-24.9, adult Start:09-Jul-2022 Instruction Type:Provider Instructions for Treatment How to Access Health Informa tion Online using Patient Portal and [employer]rd [employer] Apps Indication:BMI 24.0-24.9, adult Start:09-Jul-2022 Instruction Type:Patient Education Patient Instructions Indication:COVID Start:28-Apr-2022 Instruction Type:Provider Instructions for Treatment How to Access Health Informa tion Online using Patient Portal and [employer]rd [employer] Apps Indication:COVID Start:28-Apr-2022 Instruction Type:Patient Education Patient Instructions Indication:Hyperlipidemia Start:29-Dec-2021 Instruction Type:Provider Instructions for Treatment How to Access Health Informa tion Online using Patient Portal and [employer]rd [employer] Apps Indication:Hyperlipidemia Start:29-Dec-2021 Instruction Type:Patient Education Patient Instructions Indication:Non-smoker Start:14-Jul-2021 Instruction Type:Provider Instructions for Treatment How to Access Health Informa tion Online using Patient Portal and [employer]rd [employer] Apps Indication:Non-smoker Start:14-Jul-2021 Instruction Type:Patient Education Patient Instructions Indication:Chest pain Start:09-Jun-2021 Instruction Type:Provider Instructions for Treatment How to Access Health Informa tion Online using Patient Portal and [employer]rd [employer] Apps Indication:Chest pain Start:09-Jun-2021 Instruction Type:Patient Education How to Access Health Informa tion Online using Patient Portal and [employer]rd [employer] Apps Indication:Non-smoker Start:08-Dec-2020 Instruction Type:Patient Education Patient Instructions Indication:Non-smoker Start:08-Dec-2020 Instruction Type:Provider Instructions for Treatment How to access health informa tion online Indication:Non-smoker Start:20-Aug-2020 Instruction Type:Patient Education How to access health informa tion online - Detail Indication:Non-smoker Start:20-Aug-2020 Instruction Type:Patient Education Patient Instructions Indication:Non-smoker Start:20-Aug-2020 Instruction Type:Provider Instructions for Treatment How to access health informa tion online Indication:Non-smoker Start:04-Apr-2020 Instruction Type:Patient Education How to access health informa tion online - Detail Indication:Non-smoker Start:04-Apr-2020 Instruction Type:Patient Education Patient Instructions Indication:Non-smoker Start:04-Apr-2020 Instruction Type:Provider Instructions for Treatment How to access health informa tion online Indication:VITAMIN D DEFICIENCY Start:07-Aug-2015 Instruction Type:Patient Education How to access health informa tion online - Detail Indication:VITAMIN D DEFICIENCY Start:07-Aug-2015 Instruction Type:Patient Education Patient Instructions Indication:VITAMIN D DEFICIENCY Start:07-Aug-2015 Instruction Type:Provider Instructions for Treatment How to access health informa tion online Indication:postmenopausal without estrogen Start:22-Jul-2015 Instruction Type:Patient Education How to access health informa tion online - Detail Indication:postmenopausal without estrogen Start:22-Jul-2015 Instruction Type:Patient Education Patient Instructions Indication:postmenopausal without estrogen Start:22-Jul-2015 Instruction Type:Provider Instructions for Treatment Patient Instructions Indication:Physical exam, routine Start:25-Mar-2014 Instruction Type:Provider Instructions for Treatment [facility]; [facility] Work Phone: Instructions* Name Dates Details Patient Instructions Indication:Left shoulder pain Start:12-Jul-2023 Instruction Type:Provider Instructions for Treatment How to Access Health Informa tion Online using Patient Portal and [employer] Apps Indication:Left shoulder pain Start:12-Jul-2023 Instruction Type:Patient Education Patient Instructions Indication:Non-smoker Start:11-Jan-2023 Instruction Type:Provider Instructions for Treatment How to Access Health Informa tion Online using Patient Portal and [employer] Apps Indication:Non-smoker Start:11-Jan-2023 Instruction Type:Patient Education Patient Instructions Indication:BMI 24.0-24.9, adult Start:09-Jul-2022 Instruction Type:Provider Instructions for Treatment How to Access Health Informa tion Online using Patient Portal and [employer] Apps Indication:BMI 24.0-24.9, adult Start:09-Jul-2022 Instruction Type:Patient Education Patient Instructions Indication:COVID Start:28-Apr-2022 Instruction Type:Provider Instructions for Treatment How to Access Health Informa tion Online using Patient Portal and [employer] Apps Indication:COVID Start:28-Apr-2022 Instruction Type:Patient Education Patient Instructions Indication:Hyperlipidemia Start:29-Dec-2021 Instruction Type:Provider Instructions for Treatment How to Access Health Informa tion Online using Patient Portal and [employer] Apps Indication:Hyperlipidemia Start:29-Dec-2021 Instruction Type:Patient Education Patient Instructions Indication:Non-smoker Start:14-Jul-2021 Instruction Type:Provider Instructions for Treatment How to Access Health Informa tion Online using Patient Portal and [employer] Apps Indication:Non-smoker Start:14-Jul-2021 Instruction Type:Patient Education Patient Instructions Indication:Chest pain Start:09-Jun-2021 Instruction Type:Provider Instructions for Treatment How to Access Health Informa tion Online using Patient Portal and [employer]rd [employer] Apps Indication:Chest pain Start:09-Jun-2021 Instruction Type:Patient Education How to Access Health Informa tion Online using Patient Portal and [employer] Apps Indication:Non-smoker Start:08-Dec-2020 Instruction Type:Patient Education Patient Instructions Indication:Non-smoker Start:08-Dec-2020 Instruction Type:Provider Instructions for Treatment How to access health informa tion online Indication:Non-smoker Start:20-Aug-2020 Instruction Type:Patient Education How to access health informa tion online - Detail Indication:Non-smoker Start:20-Aug-2020 Instruction Type:Patient Education Patient Instructions Indication:Non-smoker Start:20-Aug-2020 Instruction Type:Provider Instructions for Treatment How to access health informa tion online Indication:Non-smoker Start:04-Apr-2020 Instruction Type:Patient Education How to access health informa tion online - Detail Indication:Non-smoker Start:04-Apr-2020 Instruction Type:Patient Education Patient Instructions Indication:Non-smoker Start:04-Apr-2020 Instruction Type:Provider Instructions for Treatment How to access health informa tion online Indication:VITAMIN D DEFICIENCY Start:07-Aug-2015 Instruction Type:Patient Education How to access health informa tion online - Detail Indication:VITAMIN D DEFICIENCY Start:07-Aug-2015 Instruction Type:Patient Education Patient Instructions Indication:VITAMIN D DEFICIENCY Start:07-Aug-2015 Instruction Type:Provider Instructions for Treatment How to access health informa tion online Indication:postmenopausal without estrogen Start:22-Jul-2015 Instruction Type:Patient Education How to access health informa tion online - Detail Indication:postmenopausal without estrogen Start:22-Jul-2015 Instruction Type:Patient Education Patient Instructions Indication:postmenopausal without estrogen Start:22-Jul-2015 Instruction Type:Provider Instructions for Treatment Patient Instructions Indication:Physical exam, routine Start:25-Mar-2014 Instruction Type:Provider Instructions for Treatment [facility]; [facility] Work Phone: reason for referral (narrative)* Diagnostic Procedure Only (Routine) - Closed Specialty Diagnoses / Procedures Referred By Contac t Referred To Contact [facility] Diagnoses Memory loss Cognitive decline Procedures MRI BRAIN WO IVCON MRI BRAIN BRAIN STEM W/O CONTRAST MATERIAL Ozzie Robertson Jr., MD [address] [place] [address] [place] [address] Referral ID Status Reason Start Date Expiration Date V isits Requested Visits Authorized [id number] Closed Auto-Generate d Referral 09/15/2023 03/13/2024 [address] [facility] for visit Narrative* Diagnostic Procedure Only (Routine) - Closed Specialty Diagnoses / Procedures Referred By Contac t Referred To Contact [facility] IMAG[facility] Diagnoses Memory loss Cognitive decline Procedures MRI BRAIN WO IVCON MRI BRAIN BRAIN STEM W/O CONTRAST MATERIAL Ozzie Robertson Jr., MD [address] [place] [address] [place] [address] Referral ID Status Reason Start Date Expiration Date V isits Requested Visits Authorized [id number] Closed Auto-Generate d Referral 09/15/2023 03/13/2024 1 1 [facility] Family History No Family History Records FoundUnknown Family Member Name Dates Details Father Comments: brain cancer 2 000 Status:Active Mother Comments:smoker, HTN, hyperc holesterolemia Status:Active Sister 1 Comments:overweight, HTN Status:Active Unknown Family Member Name Dates Details Father Comments: brain cancer 2 000 Status:Active Mother Comments:smoker, HTN, hyperc holesterolemia Status:Active Sister 1 Comments:overweight, HTN Status:Active Unknown Family Member Name Dates Details Father Comments: brain cancer 2 000 Status:Active Mother Comments:smoker, HTN, hyperc holesterolemia Status:Active Sister 1 Comments:overweight, HTN Status:Active Unknown Family Member Name Dates Details Father Comments: brain cancer 2 000 Status:Active Mother Comments:smoker, HTN, hyperc holesterolemia Status:Active Sister 1 Comments:overweight, HTN Status:Active Unknown Family Member Name Dates Details Father Comments: brain cancer 2 000 Status:Active Mother Comments:smoker, HTN, hyperc holesterolemia Status:Active Sister 1 Comments:overweight, HTN Status:Active Unknown Family Member Name Dates Details Father Comments: brain cancer 2 000 Status:Active Mother Comments:smoker, HTN, hyperc holesterolemia Status:Active Sister 1 Comments:overweight, HTN Status:Active Unknown Family Member Name Dates Details Father Comments: brain cancer 2 000 Status:Active Mother Comments:smoker, HTN, hyperc holesterolemia Status:Active Sister 1 Comments:overweight, HTN Status:Active Unknown Family Member Name Dates Details Father Comments: brain cancer 2 000 Status:Active Mother Comments:smoker, HTN, hyperc holesterolemia Status:Active Sister 1 Comments:overweight, HTN Status:Active Unknown Family Member Name Dates Details Father Comments: brain cancer 2 000 Status:Active Mother Comments:smoker, HTN, hyperc holesterolemia Status:Active Sister 1 Comments:overweight, HTN Status:Active Unknown Family Member Name Dates Details Father Comments: brain cancer 2 000 Status:Active Mother Comments:smoker, HTN, hyperc holesterolemia Status:Active Sister 1 Comments:overweight, HTN Status:Active Unknown Family Member Name Dates Details Father Comments: brain cancer 2 000 Status:Active Mother Comments:smoker, HTN, hyperc holesterolemia Status:Active Sister 1 Comments:overweight, HTN Status:Active Unknown Family Member Name Dates Details Father Comments: brain cancer 2 000 Status:Active Mother Comments:smoker, HTN, hyperc holesterolemia Status:Active Sister 1 Comments:overweight, HTN Status:Active Unknown Family Member Name Dates Details Father Comments: brain cancer 2 000 Status:Active Mother Comments:smoker, HTN, hyperc holesterolemia Status:Active Sister 1 Comments:overweight, HTN Status:Active Unknown Family Member Name Dates Details Father Comments: brain cancer 2 000 Status:Active Mother Comments:smoker, HTN, hyperc holesterolemia Status:Active Sister 1 Comments:overweight, HTN Status:Active Unknown Family Member Name Dates Details Father Comments: brain cancer 2 000 Status:Active Mother Comments:smoker, HTN, hyperc holesterolemia Status:Active Sister 1 Comments:overweight, HTN Status:Active Unknown Family Member Name Dates Details Father Comments: brain cancer 2 000 Status:Active Mother Comments:smoker, HTN, hyperc holesterolemia, copd Status:Active Sister 1 Comments:overweight, HTN Status:Active Unknown Family Member Name Dates Details Father Comments: brain cancer 2 000 Status:Active Mother Comments:smoker, HTN, hyperc holesterolemia, copd Status:Active Sister 1 Comments:overweight, HTN Status:Active Unknown Family Member Name Dates Details Father Comments: brain cancer 2 000 Status:Active Mother Comments:smoker, HTN, hyperc holesterolemia, copd Status:Active Sister 1 Comments:overweight, HTN Status:Active Unknown Family Member Name Dates Details Father Comments: brain cancer 2 000 Status:Active Mother Comments:smoker, HTN, hyperc holesterolemia, copd Status:Active Sister 1 Comments:overweight, HTN Status:Active Unknown Family Member Name Dates Details Father Comments: brain cancer 2 000 Status:Active Mother Comments:smoker, HTN, hyperc holesterolemia, copd Status:Active Sister 1 Comments:overweight, HTN Status:Active Unknown Family Member Name Dates Details Father Comments: brain cancer 2 000 Status:Active Mother Comments:smoker, HTN, hyperc holesterolemia, copd Status:Active Sister 1 Comments:overweight, HTN Status:Active Unknown Family Member Name Dates Details Father Comments: brain cancer 2 000 Status:Active Mother Comments:smoker, HTN, hyperc holesterolemia, copd Status:Active Sister 1 Comments:overweight, HTN Status:Active Unknown Family Member Name Dates Details Father Comments: brain cancer 2 000 Status:Active Mother Comments:smoker, HTN, hyperc holesterolemia, copd Status:Active Sister 1 Comments:overweight, HTN Status:Active Unknown Family Member Name Dates Details Father Comments: brain cancer 2 000 Status:Active Mother Comments:smoker, HTN, hyperc holesterolemia, copd- dementia Status:Active Sister 1 Comments:overweight, HTN- de mentia Status:Active Unknown Family Member Name Dates Details Father Comments: brain cancer 2 000 Status:Active Mother Comments:smoker, HTN, hyperc holesterolemia, copd- dementia Status:Active Sister 1 Comments:overweight, HTN- de mentia Status:Active Unknown Family Member Name Dates Details Father Comments: brain cancer 2 000 Status:Active Mother Comments:smoker, HTN, hyperc holesterolemia, copd- dementia Status:Active Sister 1 Comments:overweight, HTN- de mentia Status:Active Unknown Family Member Name Dates Details Father Comments: brain cancer 2 000 Status:Active Mother Comments:smoker, HTN, hyperc holesterolemia, copd- dementia Status:Active Sister 1 Comments:overweight, HTN- de mentia Status:Active Unknown Family Member Name Dates Details Father Comments: brain cancer 2 000 Status:Active Mother Comments:smoker, HTN, hyperc holesterolemia, copd- dementia Status:Active Sister 1 Comments:overweight, HTN- de mentia Status:Active Unknown Family Member Name Dates Details Father Comments: brain cancer 2 000 Status:Active Mother Comments:smoker, HTN, hyperc holesterolemia, copd- dementia Status:Active Sister 1 Comments:overweight, HTN- de mentia Status:Active Instructions Name Dates Details How to access health informa tion online Indication:Non-smoker Start:04-Apr-2020 Instruction Type:Patient Education How to access health informa tion online - Detail Indication:Non-smoker Start:04-Apr-2020 Instruction Type:Patient Education Patient Instructions Indication:Non-smoker Start:04-Apr-2020 Instruction Type:Provider Instructions for Treatment How to access health informa tion online Indication:VITAMIN D DEFICIENCY Start:07-Aug-2015 Instruction Type:Patient Education How to access health informa tion online - Detail Indication:VITAMIN D DEFICIENCY Start:07-Aug-2015 Instruction Type:Patient Education Patient Instructions Indication:VITAMIN D DEFICIENCY Start:07-Aug-2015 Instruction Type:Provider Instructions for Treatment How to access health informa tion online Indication:postmenopausal without estrogen Start:22-Jul-2015 Instruction Type:Patient Education How to access health informa tion online - Detail Indication:postmenopausal without estrogen Start:22-Jul-2015 Instruction Type:Patient Education Patient Instructions Indication:postmenopausal without estrogen Start:22-Jul-2015 Instruction Type:Provider Instructions for Treatment Patient Instructions Indication:Physical exam, routine Start:25-Mar-2014 Instruction Type:Provider Instructions for Treatment Name Dates Details How to access health informa tion online Indication:Non-smoker Start:04-Apr-2020 Instruction Type:Patient Education How to access health informa tion online - Detail Indication:Non-smoker Start:04-Apr-2020 Instruction Type:Patient Education Patient Instructions Indication:Non-smoker Start:04-Apr-2020 Instruction Type:Provider Instructions for Treatment How to access health informa tion online Indication:VITAMIN D DEFICIENCY Start:07-Aug-2015 Instruction Type:Patient Education How to access health informa tion online - Detail Indication:VITAMIN D DEFICIENCY Start:07-Aug-2015 Instruction Type:Patient Education Patient Instructions Indication:VITAMIN D DEFICIENCY Start:07-Aug-2015 Instruction Type:Provider Instructions for Treatment How to access health informa tion online Indication:postmenopausal without estrogen Start:22-Jul-2015 Instruction Type:Patient Education How to access health informa tion online - Detail Indication:postmenopausal without estrogen Start:22-Jul-2015 Instruction Type:Patient Education Patient Instructions Indication:postmenopausal without estrogen Start:22-Jul-2015 Instruction Type:Provider Instructions for Treatment Patient Instructions Indication:Physical exam, routine Start:25-Mar-2014 Instruction Type:Provider Instructions for Treatment Name Dates Details How to access health informa tion online Indication:Non-smoker Start:20-Aug-2020 Instruction Type:Patient Education How to access health informa tion online - Detail Indication:Non-smoker Start:20-Aug-2020 Instruction Type:Patient Education Patient Instructions Indication:Non-smoker Start:20-Aug-2020 Instruction Type:Provider Instructions for Treatment How to access health informa tion online Indication:Non-smoker Start:04-Apr-2020 Instruction Type:Patient Education How to access health informa tion online - Detail Indication:Non-smoker Start:04-Apr-2020 Instruction Type:Patient Education Patient Instructions Indication:Non-smoker Start:04-Apr-2020 Instruction Type:Provider Instructions for Treatment How to access health informa tion online Indication:VITAMIN D DEFICIENCY Start:07-Aug-2015 Instruction Type:Patient Education How to access health informa tion online - Detail Indication:VITAMIN D DEFICIENCY Start:07-Aug-2015 Instruction Type:Patient Education Patient Instructions Indication:VITAMIN D DEFICIENCY Start:07-Aug-2015 Instruction Type:Provider Instructions for Treatment How to access health informa tion online Indication:postmenopausal without estrogen Start:22-Jul-2015 Instruction Type:Patient Education How to access health informa tion online - Detail Indication:postmenopausal without estrogen Start:22-Jul-2015 Instruction Type:Patient Education Patient Instructions Indication:postmenopausal without estrogen Start:22-Jul-2015 Instruction Type:Provider Instructions for Treatment Patient Instructions Indication:Physical exam, routine Start:25-Mar-2014 Instruction Type:Provider Instructions for Treatment Name Dates Details How to access health informa tion online Indication:Non-smoker Start:20-Aug-2020 Instruction Type:Patient Education How to access health informa tion online - Detail Indication:Non-smoker Start:20-Aug-2020 Instruction Type:Patient Education Patient Instructions Indication:Non-smoker Start:20-Aug-2020 Instruction Type:Provider Instructions for Treatment How to access health informa tion online Indication:Non-smoker Start:04-Apr-2020 Instruction Type:Patient Education How to access health informa tion online - Detail Indication:Non-smoker Start:04-Apr-2020 Instruction Type:Patient Education Patient Instructions Indication:Non-smoker Start:04-Apr-2020 Instruction Type:Provider Instructions for Treatment How to access health informa tion online Indication:VITAMIN D DEFICIENCY Start:07-Aug-2015 Instruction Type:Patient Education How to access health informa tion online - Detail Indication:VITAMIN D DEFICIENCY Start:07-Aug-2015 Instruction Type:Patient Education Patient Instructions Indication:VITAMIN D DEFICIENCY Start:07-Aug-2015 Instruction Type:Provider Instructions for Treatment How to access health informa tion online Indication:postmenopausal without estrogen Start:22-Jul-2015 Instruction Type:Patient Education How to access health informa tion online - Detail Indication:postmenopausal without estrogen Start:22-Jul-2015 Instruction Type:Patient Education Patient Instructions Indication:postmenopausal without estrogen Start:22-Jul-2015 Instruction Type:Provider Instructions for Treatment Patient Instructions Indication:Physical exam, routine Start:25-Mar-2014 Instruction Type:Provider Instructions for Treatment Name Dates Details How to access health informa tion online Indication:Non-smoker Start:20-Aug-2020 Instruction Type:Patient Education How to access health informa tion online - Detail Indication:Non-smoker Start:20-Aug-2020 Instruction Type:Patient Education Patient Instructions Indication:Non-smoker Start:20-Aug-2020 Instruction Type:Provider Instructions for Treatment How to access health informa tion online Indication:Non-smoker Start:04-Apr-2020 Instruction Type:Patient Education How to access health informa tion online - Detail Indication:Non-smoker Start:04-Apr-2020 Instruction Type:Patient Education Patient Instructions Indication:Non-smoker Start:04-Apr-2020 Instruction Type:Provider Instructions for Treatment How to access health informa tion online Indication:VITAMIN D DEFICIENCY Start:07-Aug-2015 Instruction Type:Patient Education How to access health informa tion online - Detail Indication:VITAMIN D DEFICIENCY Start:07-Aug-2015 Instruction Type:Patient Education Patient Instructions Indication:VITAMIN D DEFICIENCY Start:07-Aug-2015 Instruction Type:Provider Instructions for Treatment How to access health informa tion online Indication:postmenopausal without estrogen Start:22-Jul-2015 Instruction Type:Patient Education How to access health informa tion online - Detail Indication:postmenopausal without estrogen Start:22-Jul-2015 Instruction Type:Patient Education Patient Instructions Indication:postmenopausal without estrogen Start:22-Jul-2015 Instruction Type:Provider Instructions for Treatment Patient Instructions Indication:Physical exam, routine Start:25-Mar-2014 Instruction Type:Provider Instructions for Treatment Name Dates Details How to access health informa tion online Indication:Non-smoker Start:20-Aug-2020 Instruction Type:Patient Education How to access health informa tion online - Detail Indication:Non-smoker Start:20-Aug-2020 Instruction Type:Patient Education Patient Instructions Indication:Non-smoker Start:20-Aug-2020 Instruction Type:Provider Instructions for Treatment How to access health informa tion online Indication:Non-smoker Start:04-Apr-2020 Instruction Type:Patient Education How to access health informa tion online - Detail Indication:Non-smoker Start:04-Apr-2020 Instruction Type:Patient Education Patient Instructions Indication:Non-smoker Start:04-Apr-2020 Instruction Type:Provider Instructions for Treatment How to access health informa tion online Indication:VITAMIN D DEFICIENCY Start:07-Aug-2015 Instruction Type:Patient Education How to access health informa tion online - Detail Indication:VITAMIN D DEFICIENCY Start:07-Aug-2015 Instruction Type:Patient Education Patient Instructions Indication:VITAMIN D DEFICIENCY Start:07-Aug-2015 Instruction Type:Provider Instructions for Treatment How to access health informa tion online Indication:postmenopausal without estrogen Start:22-Jul-2015 Instruction Type:Patient Education How to access health informa tion online - Detail Indication:postmenopausal without estrogen Start:22-Jul-2015 Instruction Type:Patient Education Patient Instructions Indication:postmenopausal without estrogen Start:22-Jul-2015 Instruction Type:Provider Instructions for Treatment Patient Instructions Indication:Physical exam, routine Start:25-Mar-2014 Instruction Type:Provider Instructions for Treatment Name Dates Details How to Access Health Informa tion Online using Patient Portal and [employer] Apps Indication:Non-smoker Start:08-Dec-2020 Instruction Type:Patient Education Patient Instructions Indication:Non-smoker Start:08-Dec-2020 Instruction Type:Provider Instructions for Treatment How to access health informa tion online Indication:Non-smoker Start:20-Aug-2020 Instruction Type:Patient Education How to access health informa tion online - Detail Indication:Non-smoker Start:20-Aug-2020 Instruction Type:Patient Education Patient Instructions Indication:Non-smoker Start:20-Aug-2020 Instruction Type:Provider Instructions for Treatment How to access health informa tion online Indication:Non-smoker Start:04-Apr-2020 Instruction Type:Patient Education How to access health informa tion online - Detail Indication:Non-smoker Start:04-Apr-2020 Instruction Type:Patient Education Patient Instructions Indication:Non-smoker Start:04-Apr-2020 Instruction Type:Provider Instructions for Treatment How to access health informa tion online Indication:VITAMIN D DEFICIENCY Start:07-Aug-2015 Instruction Type:Patient Education How to access health informa tion online - Detail Indication:VITAMIN D DEFICIENCY Start:07-Aug-2015 Instruction Type:Patient Education Patient Instructions Indication:VITAMIN D DEFICIENCY Start:07-Aug-2015 Instruction Type:Provider Instructions for Treatment How to access health informa tion online Indication:postmenopausal without estrogen Start:22-Jul-2015 Instruction Type:Patient Education How to access health informa tion online - Detail Indication:postmenopausal without estrogen Start:22-Jul-2015 Instruction Type:Patient Education Patient Instructions Indication:postmenopausal without estrogen Start:22-Jul-2015 Instruction Type:Provider Instructions for Treatment Patient Instructions Indication:Physical exam, routine Start:25-Mar-2014 Instruction Type:Provider Instructions for Treatment Name Dates Details How to Access Health Informa tion Online using Patient Portal and [employer] Apps Indication:Non-smoker Start:08-Dec-2020 Instruction Type:Patient Education Patient Instructions Indication:Non-smoker Start:08-Dec-2020 Instruction Type:Provider Instructions for Treatment How to access health informa tion online Indication:Non-smoker Start:20-Aug-2020 Instruction Type:Patient Education How to access health informa tion online - Detail Indication:Non-smoker Start:20-Aug-2020 Instruction Type:Patient Education Patient Instructions Indication:Non-smoker Start:20-Aug-2020 Instruction Type:Provider Instructions for Treatment How to access health informa tion online Indication:Non-smoker Start:04-Apr-2020 Instruction Type:Patient Education How to access health informa tion online - Detail Indication:Non-smoker Start:04-Apr-2020 Instruction Type:Patient Education Patient Instructions Indication:Non-smoker Start:04-Apr-2020 Instruction Type:Provider Instructions for Treatment How to access health informa tion online Indication:VITAMIN D DEFICIENCY Start:07-Aug-2015 Instruction Type:Patient Education How to access health informa tion online - Detail Indication:VITAMIN D DEFICIENCY Start:07-Aug-2015 Instruction Type:Patient Education Patient Instructions Indication:VITAMIN D DEFICIENCY Start:07-Aug-2015 Instruction Type:Provider Instructions for Treatment How to access health informa tion online Indication:postmenopausal without estrogen Start:22-Jul-2015 Instruction Type:Patient Education How to access health informa tion online - Detail Indication:postmenopausal without estrogen Start:22-Jul-2015 Instruction Type:Patient Education Patient Instructions Indication:postmenopausal without estrogen Start:22-Jul-2015 Instruction Type:Provider Instructions for Treatment Patient Instructions Indication:Physical exam, routine Start:25-Mar-2014 Instruction Type:Provider Instructions for Treatment Name Dates Details How to access health informa tion online Indication:Non-smoker Start:04-Apr-2020 Instruction Type:Patient Education How to access health informa tion online - Detail Indication:Non-smoker Start:04-Apr-2020 Instruction Type:Patient Education Patient Instructions Indication:Non-smoker Start:04-Apr-2020 Instruction Type:Provider Instructions for Treatment How to access health informa tion online Indication:VITAMIN D DEFICIENCY Start:07-Aug-2015 Instruction Type:Patient Education How to access health informa tion online - Detail Indication:VITAMIN D DEFICIENCY Start:07-Aug-2015 Instruction Type:Patient Education Patient Instructions Indication:VITAMIN D DEFICIENCY Start:07-Aug-2015 Instruction Type:Provider Instructions for Treatment How to access health informa tion online Indication:postmenopausal without estrogen Start:22-Jul-2015 Instruction Type:Patient Education How to access health informa tion online - Detail Indication:postmenopausal without estrogen Start:22-Jul-2015 Instruction Type:Patient Education Patient Instructions Indication:postmenopausal without estrogen Start:22-Jul-2015 Instruction Type:Provider Instructions for Treatment Patient Instructions Indication:Physical exam, routine Start:25-Mar-2014 Instruction Type:Provider Instructions for Treatment Summary Purpose Advance Directives No Advanced Directives Records FoundNo Advanced Directives Records Found Reason for Referral Specialty Diagnoses / Procedures Referred By Mary barbosa Referred To Contact MR IMAGING Diagnoses Memory loss Cognitive decline Procedures MRI BRAIN WO IVCON MRI BRAIN BRAIN STEM W/O CONTRAST MATERIAL Ozzie Robertson Jr., MD [address] [facility] [address] [place] [address] [place] [id number] Referral ID Status Reason Start Date Expiration Date Visits Requested Visits Authorized [id number] Pending Review Auto-Generat ed Referral 2023 09/17/2024 1 1 Additional Source Comments INFORMATION SOURCE (unrecogn ized section and content) DATE CREATED AUTHOR AUTHOR'S ORGANIZ ATION 11/15/[address] [facility] Source Comments (unrecognize d section and content) In the event this informatio n is protected by the Federal Confidentiality of Alcohol and Drug Abuse Patient Records regulations: The Federal rules restrict any use of the information to criminally investigate or prosecute any alcohol or drug abuse patient.[facility] the event this information is protected by the Federal Confidentiality of Alcohol and Drug Abuse Patient Records regulations: The Federal rules restrict any use of the information to criminally investigate or prosecute any alcohol or drug abuse patient.[facility] the event this information is protected by the Federal Confidentiality of Alcohol and Drug Abuse Patient Records regulations: The Federal rules restrict any use of the information to criminally investigate or prosecute any alcohol or drug abuse patient.[facility] the event this information is protected by the Federal Confidentiality of Alcohol and Drug Abuse Patient Records regulations: The Federal rules restrict any use of the information to criminally investigate or prosecute any alcohol or drug abuse patient.[facility] the event this information is protected by the Federal Confidentiality of Alcohol and Drug Abuse Patient Records regulations: The Federal rules restrict any use of the information to criminally investigate or prosecute any alcohol or drug abuse patient.[facility] the event this information is protected by the Federal Confidentiality of Alcohol and Drug Abuse Patient Records regulations: The Federal rules restrict any use of the information to criminally investigate or prosecute any alcohol or drug abuse patient.[facility] the event this information is protected by the Federal Confidentiality of Alcohol and Drug Abuse Patient Records regulations: The Federal rules restrict any use of the information to criminally investigate or prosecute any alcohol or drug abuse patient.[facility] Reason for Visit (unrecogniz ed section and content) Reason Comments New Patient Evaluation Reason Comments Results Reason Comments prior authorization Reason Comments Patient Update Patient Question Care Teams (unrecognized sec tion and content) Project Designer Relationship Specialty Start Date End Date Bear Pozo MD PCP - General Internal Medicine 07/14/11 Project Designer Relationship Specialty Start Date End Date Rajat Cummins DO [address] [facility] [address] [place], [place] [address] PCP - General Internal Medicine 10/04/23 Project Designer Relationship Specialty Start [place] [address] [place] [address] [address] [place] [address] PCP - General Internal Medicine 10/04/23 Project Designer Relationship Specialty Start [place] [address] [place] [address] [address] [place], [place] [address] [phone] PCP - General Internal Medicine 10/04/23 Project Designer Relationship Specialty Start Date End Date Raajt Cummins DO [address] [facility] [address] [place], [place] [id number] [phone] PCP - General Internal Medicine 10/04/23 FOR RECORDS PERTAINING TO PATIENTS WHO ARE OR HAVE BEEN ENROLLED IN A CHEMICAL DEPENDENCY/SUBSTANCEABUSE PROGRAM, SOME INFORMATION MAY BE OMITTED. This clinical summary was aggregated from multiple sources. Caution should be exercised in using it in the provision of clinical care. This summary normalizes information from multiple sources, and as a consequence, information in this document may materially change the coding, format and clinical context of patient data. In addition, data may be omitted in some cases. CLINICAL DECISIONS SHOULD BE BASED ON THE PRIMARY CLINICAL RECORDS. [employer] [facility]. provides no warranty or guarantee of the accuracy or completeness of information in this document.
== END | disposition home or self-care (01) ==
LOC: MTRAD 10:16
PROVIDERS: PCP Internal Medicine; Referring Provider Physician Assistant; Visit Provider Physician Assistant
DX: R05.9 Cough, unspecified (principal)
CPT/HCPCS: 71046

== ENCOUNTER → 2024-03-22 | Outpatient (CLI) | payer OTHER, MEDICARE, SELFPAY ==
[2024-03-22 07:48] LABS: Vitamin B12 585 pg/mL (211-911); Vitamin D,25 Hydroxy 53.6 ng/mL
[2024-03-22 08:14] LABS: Thyroid Stim Hormone (TSH) 2.54 uIU/mL (0.358-3.74)
== END | disposition home or self-care (01) ==
LOC: LAB 06:24
PROVIDERS: PCP Internal Medicine; Referring Provider Internal Medicine; Visit Provider Internal Medicine
DX: E78.5 Hyperlipidemia, unspecified (principal); F03.90 Unspecified dementia, unspecified severity, without behavioral disturbance, psychotic disturbance, mood disturbance, and anxiety
CPT/HCPCS: 36415; 82306; 82607; 84443

== ENCOUNTER → 2024-04-11 | Outpatient (CLI) | payer OTHER, MEDICARE, SELFPAY | END | disposition home or self-care (01) | LOC: LABSPEC 10:32 | PROVIDERS: PCP Internal Medicine; Referring Provider Dermatology; Visit Provider Dermatology | DX: B35.1 Tinea unguium (principal); D69.2 Other nonthrombocytopenic purpura; L82.0 Inflamed seborrheic keratosis; L53.8 Other specified erythematous conditions; L29.8 Other pruritus | CPT/HCPCS: 87101 ==

== ENCOUNTER → 2024-05-01 | Outpatient (CLI) | payer OTHER, MEDICARE, SELFPAY ==
--- NOTE | 2024-05-01 14:15 | BI_ITS ---
MAMMOGRAPHY - BILATERAL SCREENING REASON FOR EXAM: Female, 68 years old. Routine annual screening examination. PERTINENT HISTORY: Grandmother with breast cancer. Prior left breast biopsy. TECHNIQUE: Digital bilateral breast arti (3D mammographic acquisition) in the CC and MLO projections. 2-D mediolateral oblique (MLO) and craniocaudad (CC) views of both breasts were obtained. CAD: Full Field Digital Mammography with Computer Added Detection was performed. COMPARISON: Comparison is made with prior study April 20, 2023. FINDINGS: Breast Composition: The breasts are extremely dense, which lowers the sensitivity of mammography. There are no dominant masses or suspicious calcifications. A tissue clip marker is seen in the upper deep lateral aspect of the left breast. No other significant abnormalities are identified. There has been no significant change since the prior study. BI/SCRN MAMM (CAD)W/ARTI BILAT IMPRESSION: Stable bilateral screening mammogram. Yearly follow-up mammogram recommended. (A) ASSESSMENT CATEGORY: BIRADS Category 2: Benign. A letter regarding these results will be sent to the patient by the facility within 30 days. Approximately 10% of breast cancers are not detected by mammography. A normal mammogram should not delay biopsy of a clinically suspicious abnormality. [id number] Electronically Signed: Rafal Dos Santos MD at 14:56 EDT ,
== END | disposition home or self-care (01) ==
LOC: OPBI 14:14
PROVIDERS: PCP Internal Medicine; Referring Provider Internal Medicine; Visit Provider Internal Medicine
DX: Z12.31 Encounter for screening mammogram for malignant neoplasm of breast (principal); Z80.3 Family history of malignant neoplasm of breast
CPT/HCPCS: 77063; 77067

== ENCOUNTER 2024-06-07 09:00 | Outpatient (CLI) | payer OTHER, MEDICARE, SELFPAY ==
[2024-06-07 10:34] LABS: Hematocrit 39.8 % (37-47); Hemoglobin 13.1 g/dL (12.0-15.0); Mean Corp Hgb Conc 32.9 g/dL (32-36); Mean Corpuscular Hgb 30.2 pg (27.0-32.0); Mean Corpuscular Volume 91.7 fL (81-99); Mean Platelet Vol. 9.3 fl (6.2-12.0); Platelet Count 230 K/mm3 (150-450); RBC Distribution Width CV 12.3 % (11.6-14.6); RBC Distribution Width SD 41.3 fl (35.1-43.9); Red Blood Count 4.34 M/mm3 (4.2-5.4); White Blood Count 5.6 K/mm3 (4.4-11.0)
[2024-06-07 11:18] LABS: Anion Gap 5 (5-15); BUN 15 mg/dL (7-18); BUN/Creat Ratio 19.5 RATIO (10-20); Calcium,Total 9.9 mg/dL (8.5-10.1); Chloride 106 mmol/L (98-107); Creatinine, Serum 0.77 mg/dL (0.55-1.02); EST Glomerular Filtration Rate 79 mL/min (>60); Est Glom Filt Rate - Afr Amer 96 mL/min (>60); Glucose 125 mg/dL (74-106); Potassium 3.9 mmol/L (3.5-5.1); Sodium Level 139 mmol/L (136-145)
== END 2024-06-08 23:59 | disposition home or self-care (01) ==
LOC: PAT 10-19 16:43
PROVIDERS: PCP Internal Medicine; Referring Provider Surgery; Visit Provider Surgery
DX: Z01.818 Encounter for other preprocedural examination (principal); Z53.9 Procedure and treatment not carried out, unspecified reason
CPT/HCPCS: 36415; 80048; 85027

== ENCOUNTER → 2024-07-05 | Outpatient (CLI) | payer OTHER, MEDICARE, SELFPAY ==
--- NOTE | 2024-07-05 13:01 | MRI_ITS ---
STUDY: MRI LEFT SHOULDER REASON FOR EXAM: Female, 68 years old. Left shoulder pain. TECHNIQUE: Standardized fat and water weighted pulse sequences were obtained in all 3 orthogonal planes. COMPARISON: Left shoulder MRI dated 07/25/2023. FINDINGS: There is a full-thickness tear of the distal posterior supraspinatus tendon, overall measuring 2.6 cm in length (coronal T2 series 5 images 9-10) and 0.9 cm in width (sagittal T2 series 7 images 15-17). Normal infraspinatus tendon. There is mild subscapularis tendinosis. Normal teres minor tendon. There is mild atrophy and fatty infiltration of the supraspinatus muscle. Normal infraspinatus muscle. Normal subscapularis muscle. Normal teres minor muscle. There is a moderate glenohumeral joint effusion with fluid communicating into the subacromial-subdeltoid bursa. Intact humeral head and visualized proximal humerus. Normal biceps labral complex. Normal intracapsular long biceps tendon. Normal labrum. Normal capsulo-ligamentous complex. Normal rotator interval. There is mild acromioclavicular arthrosis. There is a Type II morphology (curved), with a neutral orientation. Normal visualized coracohumeral and coracoacromial ligaments. Normal quadrilateral space. Normal axillary space. Normal deltoid muscle. Normal trapezius muscle. MRI/Upper Ext Joint Only(Routine) IMPRESSION: 2.6 x 0.9 cm full-thickness tear of the distal posterior supraspinatus tendon. Mild atrophy and fatty infiltration of the supraspinatus muscle Mild subscapularis tendinosis. Mild acromioclavicular arthrosis. Moderate glenohumeral joint effusion with fluid communicating into the subacromial-subdeltoid bursa. Electronically Signed: Sky Mejia MD at 15:01 EDT ,
== END | disposition home or self-care (01) ==
PROVIDERS: PCP Internal Medicine; Referring Provider Internal Medicine; Visit Provider Internal Medicine
DX: M25.512 Pain in left shoulder (principal)
CPT/HCPCS: 73221

== ENCOUNTER → 2024-07-24 | Outpatient (CLI) | payer SELFPAY ==
--- NOTE | 2024-07-24 11:56 | CT_ITS ---
STUDY: CT CHEST WITHOUT CONTRAST REASON FOR EXAM: Female, 68 years old. HYPERLIPIDEMIA LIMITED CHEST OVERREAD ONLY RADIATION DOSAGE (If Supplied By Facility): CTDIvol = ( 12.19 ) mGy, DLP = ( 195.04 ) mGycm TECHNIQUE: Transaxial imaging was performed without the administration of intravenous contrast material. Individualized dose optimization techniques were used for this CT. COMPARISON: No relevant priors. FINDINGS: CHEST The lungs are normal. There is no demonstrated pleural abnormality. There are calcifications of the coronary arteries. There are small lymph nodes within the mediastinum, which are normal in size and morphology most compatible with reactive lymph hyperplasia. Normal hilar regions. Normal unenhanced pulmonary arteries. Normal aorta arch and descending thoracic aorta. Normal osseous structures. There is a 1.5 cm cyst in the upper posterior left kidney. CT/Limited Chest CT Cardiac Only IMPRESSION: Coronary artery calcification. Electronically Signed: Rafal Dos Santos MD at 15:04 EDT ,
--- NOTE | 2024-07-31 06:29 | CA.SCORE ---
Calcium Scoring Date of Study:: 07/24/24 Coronary Calcium Scoring: High-resolution Computed Tomographic imaging of the chest was performed on [07/24/2024], with particular attention paid to the coronary arteries. Images from the examination were analyzed for the presence and extent of coronary artery calcification , using coronary calcium quantification software. The patient tolerated the procedure well and there were no complications. The results of the coronary calcification analysis are provided below. Findings Coronary Artery Left Main (LM): 0 Left Anterior Descending (LAD): 9.79 Left Circumflex (LCX): 0 Right Coronary Artery (RCA): 0 Total Agatston Score: 9.79 Percentile Rankinth to 50th percentile Calcium Scoring Interpretation: Different methods to categorize the overall amount of coronary plaque. Overall amount CAC SIS Visual of coronary plaque P1 Mild -100 <2 1-2 vessels with mild amount of plaque P2 Moderate 101-300 3-4 1-2 vessels with moderate amount, 3 vessels with mild amount of plaque P3 Severe 301-999 5-7 3 vessels with moderate amount, 1 vessel with severe amount of plaque P4 Extensive >1000 >8 2-3 vessels with severe amount of plaque Calcium Score: Mild: 1-2 vessels w/mild amount of plaque Conclusion: Minimal atherosclerotic plaquing noted
== END | disposition home or self-care (01) ==
PROVIDERS: PCP Internal Medicine; Referring Provider Internal Medicine; Visit Provider Internal Medicine
DX: E78.5 Hyperlipidemia, unspecified (principal)
CPT/HCPCS: 75571; 76380

== ENCOUNTER → 2024-09-20 | Outpatient (CLI) | payer OTHER, MEDICARE, SELFPAY ==
--- OUTSIDE RECORDS SUMMARY | 2024-09-20 06:12 | XMS RPT_ITS | CCD ---
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 completed. Pt later reports side effects on Namenda of insomnia and headache and appears dose was decreased to 5mg daily. Pt feels since on the Namenda 5mg jose feels like things are a little better. 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 MODIFIED MOCA: HATBC Immediate recall: 04/01 Number repeat: 12/30 Sentence repeat: 12/30 Serial 7s: [id number] 11/30 Abstract: 12/30 Orientation: 05/03 Delayed recall: 12/02 (01/30 with cues) A tap: 11/28 Words begin with letter * in 1 min: 11/28 Clock drawin/3 Cube draw: 11/28 Namin/3 TOTAL: Pt states that cognition has no impact on her work. REVIEW OF SYSTEMS GENERAL:No weight loss, malaise [...] disturbance, mood disorder and recent psychosocial stressors. HEMATOLOGIC/LYMPHATIC/I MMUNOLOGIC:Negative for prolonged bleeding, bruising easily or swollen nodes. ENDOCRINE: Negative for cold or heat intolerance, polyuria, polydipsia and goiter. The remainder of the ROS was reviewed and is negative. MEDICATIONS: memantine (NAMENDA) 5 mg tablet Take 1 tablet by mouth two times a day. cholecalciferol, vitamin D3, (VITAMIN D-3) 10 mcg (400 unit) cap Take 400 Units by mouth once daily. ZINC ACETATE ORAL Take 1 tablet by mouth once daily. calcium carbonate (CALCIUM 500 ORAL) Take 1 tablet by mouth once daily. BIOTIN ORAL Take by mouth. (Patient not taking: Reported on (more content not included)... Normal [facility] 11-14-2023 [facility] Telephone ([facility]) ERIN DYSON ([id number]) 1955 F Date Time Provider Department 11/14/23 DANNI GURRLOA [facility] During your visit today, we recorded the following information about you: Maureen Garrison 11/14/2023 11:09 AM Signed 1st attempt, left VM about canceled appointment with Danni Gurrola on 01/13. Need to reschedule. Allergies As of Date: 11/14/2023 (No Known Allergies) Date Reviewed: 10/11/2023 Reviewed by: Danni Gurrola PA-C - Fully Assessed Prescriptions as of 11/14/2023 - memantine (NAMENDA) 5 mg tablet Take 1 tablet by mouth two times a day. - cholecalciferol, vitamin D3, (VITAMIN D-3) 10 mcg (400 unit) cap Take 400 Units by mouth once daily. - ZINC ACETATE ORAL Take 1 tablet by mouth once daily. - calcium carbonate (CALCIUM 500 ORAL) Take 1 tablet by mouth once daily. - BIOTIN ORAL Take by mouth. Problem List As Of Date 11/14/2023 Noted Resolved UNSP ABNORMAL MAMMOGRAM [R92.8] 06/03/2008 Fibrocystic Disease of Breast [N60.19] 08/18/2009 Vaginal wall prolapse without uterine prolapse *04/09/2014 Carpal tunnel syndrome of right wrist [G56.01] 10/11/2023 Osteoarthritis of metacarpophalangeal (MCP) magi*10/11/2023 Dementia without behavioral disturbance (HCC) [*10/11/2023 Encounter Status:Closed by [facility] ERIN DYSON ([id number]) 1955 F Date Time Provider Department 11/10/23 DANNI GURROLA During your visit today, we recorded the following information about you: Gricelda Reyez RN 11/10/2023 2:35 PM Signed Patient calls to report that since starting [...] and 6 pm. Please review and advise, GISELE Thomas Jessica, LPN 11/11/2023 10:35 AM Signed I would try taking Namenda in the morning only to see if she is able to fall asleep and if her headaches improve. OLVIN Marques Jessica, LPN 11/11/2023 10:35 AM Signed Do you want her to take 10 mg once daily or 5 mg once daily? AUBREE Beal Jessica, LPN 11/11/2023 10:49 AM Signed TC to pt with no answer, left VM to return call. Please advise pt to take 5 mg namenda in morning only to see if help symptoms. AUBREE Beal Laurie Lynn, LPN 11/11/2023 11:14 AM Signed Spoke with pt and information listed below given. Pt verbalizes understanding. Pt will take (1) 5 mg in the am only. Memo Lucio LPN Allergies As of Date: 11/10/2023 (No Known Allergies) Date Reviewed: 10/11/2023 Reviewed by: Danni Gurrola PA-C - Fully Assessed Reason for Visit: Patient Update [1234] Patient Question [2717] Prescriptions as of 11/11/2023 - memantine (NAMENDA) 5 mg tablet Take 1 tablet by mouth two times a day. - cholecalciferol, vitamin D3, (VITAMIN D-3) 10 mcg (400 unit) cap Take 400 Units by mouth once daily. - ZINC ACETATE ORAL Take 1 tablet by mouth once daily. - calcium carbonate (CALCIUM 500 ORAL) Take 1 tablet by mouth once daily. - BIOTIN ORAL Take by mouth. Problem List As Of Date 11/10/2023 Noted Resolved UNSP ABNORMAL MAMMOGRAM [R92.8] 06/03/2008 Fibrocystic Disease of Breast [N60.19] 08/18/2009 Vaginal wall prolapse without uterine prolapse *04/09/2014 Carpal tunnel syndrome of right wrist [G56.01] 10/11/2023 Osteoarthritis of metacarpophalangeal (MCP) magi*10/11/2023 Dementia without behavioral disturbance (HCC) [*10/11/2023 Encounter Status:Closed by MEMO LUCIO on 11/11/23 Normal [facility] CNOVon 10-11-2023 CNOV Office Visit (NEMOWS ) ERIN DYSON ([id number]) 1955 F Date Time Provider Department 10/11/23 2:45 PM DANNI GURROLA During your visit today, we recorded the following information about you: Pulse Respiration Blood pressure Weight 60/minute 18/minute 129/78 63 kg Danni Gurrola PA-C 10/11/2023 3:54 PM Signed ESTABLISHED PATIENT VISIT Last visit: 08/19/23 by [...] follow up HISTORY OF PRESENT ILLNESS: Erin Dyson is a 68 year old female, There were no vitals taken for this visit. with a PMH significant for carpal tunnel. Chart review: Last seen for memory loss by Dr. Robertson on 08/19/23. MoCA was (visuospatial intact), sister with dementia, mother with [...] disturbance, mood disorder and recent psychosocial stressors. HEMATOLOGIC/LYMPHATIC/I MMUNOLOGIC:Negative for prolonged bleeding, bruising easily or swollen [...] normal controls by quantitative analysis. * Mild (more content not included)... 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 Danni York LPN, PA-C 10/12/2023 9:16 AM Signed Sent Namenda to [facility] pharmacy. Allergies As of Date: 10/11/2023 (No Known Allergies) Date Reviewed: 10/11/2023 Reviewed by: Danni Gurrola PA-C - Fully Assessed Reason for Visit: prior authorization [Other] Order(s):memantine (NAMENDA) 5 mg tabletTake 1 tablet by mouth two times a day.Disp: 60 tabletRfl: 2 Prescriptions as of 10/12/2023 - memantine (NAMENDA) 5 mg tablet Take 1 tablet by mouth two times a day. - cholecalciferol, vitamin D3, (VITAMIN D-3) 10 mcg (400 unit) cap Take 400 Units by mouth once daily. - ZINC ACETATE ORAL Take 1 tablet by mouth once daily. - calcium carbonate (CALCIUM 500 ORAL) Take 1 tablet by mouth once daily. - BIOTIN ORAL Take by mouth. Problem List As Of Date 10/11/2023 Noted Resolved UNSP ABNORMAL MAMMOGRAM [R92.8] 06/03/2008 Fibrocystic Disease of Breast [N60.19] 08/18/2009 Vaginal wall prolapse without uterine prolapse *04/09/2014 Carpal tunnel syndrome of right wrist [G56.01] 10/11/2023 Osteoarthritis of metacarpophalangeal (MCP) magi*10/11/2023 Dementia without behavioral disturbance (HCC) [*10/11/2023 Prescriptions ordered this encounter Disp Refills Start End MEMANTINE 5 MG TABLET 60 t* 2 10/12/2023 Route: ORAL Sig: Take 1 tablet by mouth two times a day. Medications Discontinued During This Encounter Prescriptions - memantine (NAMENDA) 5 mg tablet (Discontinued) Take 1 tablet by mouth once daily. Encounter Status:Closed by RADHA MANNING on 10/12/23 [facility] 10-04-2023 [facility] Telephone ([facility]) ERIN DYSON ([id number]) 1955 F Date Time Provider Department 10/04/23 OZZIE ROBERTSON JR [facility] During your visit today, we recorded the following information about you: Saw Higuera LPN 10/04/2023 2:04 PM Signed Pt calling stating she had MRI done today for Dr Robertson. Pt is wanting to have copy of MRI results also sent to her pcp Dr Rajat Cummins. Jasperfrancis Lopez Ozzie Mcrae LPN, Jr., MD 10/05/2023 3:20 PM Signed Please get pt sooner appt with AGUSTÍN BOWEN or MARYANN MONTANO to go over results. Thank you, MD Jeny Vera Jessica, LPN 10/05/2023 4:04 PM Signed TC to pt, scheduled October [id number] with Danni Gurrola. Results faxed to PCP per request. Radha Manning LPN Allergies As of Date: 10/04/2023 (No Known Allergies) Date Reviewed: 2023 Reviewed by: Ozzie Robertson Jr., MD - Fully Assessed Reason for Visit: Results [95] Prescriptions as of 10/05/2023 - cholecalciferol, vitamin D3, (VITAMIN D-3) 10 mcg (400 unit) cap Take 400 Units by mouth once daily. - ZINC ACETATE ORAL Take 1 tablet by mouth once daily. - calcium carbonate (CALCIUM 500 ORAL) Take 1 tablet by mouth once daily. - BIOTIN ORAL Take by mouth. Problem List As Of Date 10/04/2023 Noted Resolved UNSP ABNORMAL MAMMOGRAM [R92.8] 06/03/2008 Fibrocystic Disease of Breast [N60.19] 08/18/2009 Vaginal wall prolapse without uterine prolapse *04/09/2014 Encounter Status:Closed by RADHA MANNING on 10/05/23 Normal [facility] MRI 3D POST PROCESSINGon MRI 3D POST PROCESSING * * *Final Report* * * DATE OF EXAM: Oct 04 2023 1:22PM [facility] 0280 - MRI 3D POST PROCESSING / PROCEDURE REASON: multiple diagnoses * * * * Physician Interpretation * * * * EXAMINATION: MRI BRAIN WO IVCON, MRI 3D POST PROCESSING HISTORY: Multiple diagnosis TECHNIQUE: Specialized brain MRI without contrast, using the ADNI dementia protocol and 3-D post-processing at an independent workstation under physician supervision using the Noonswoon software. MQ: [id number] COMPARISON: None RESULT: MRI BRAIN QUALITATIVE: Acute Intracranial Process: No restricted diffusion concerning for acute ischemia. No abnormal susceptibility concerning for acute hemorrhage. No evidence for acute intracranial abnormality. Chronic Intracranial Process: Patchy white matter T2 hyperintensity indicating chronic microvascular ischemia. Accentuation of CSF spaces indicating volume loss. No specific pattern of volume decrease is identified to raise concern for dementia syndromes. Age related white matter changes (ARWMC) rating: White matter lesions: 1 Basal ganglia lesions: 0 Prior parenchymal hemorrhage and location: Low lying cerebellar tonsils are identified with the tip of the cerebellar tonsils 4 mm inferior to foramen magnum without any intracranial structural anomalies with but with mild crowding within the posterior fossa compatible with Chiari I malformation. Suprasellar cistern is maintained and this is unlikely to represent intracranial hypotension but still may be excluded clinically if indicated. No evidence of parenchymal microhemorrhages on SWI. Qualitative brain and hippocampal volume: There is mild cortical volume loss in view of the mild enlargement of the cortical sulci. There is mild central white matter volume loss in view of the mild enlargement of the ventricular system. There is mild hippocampal volume loss relative to the parenchymal volume loss elsewhere based on visual inspection. Ventricles: Commensurate with volume loss. Brain Parenchymal Signal and Morphology: The brain parenchyma is otherwise within normal limits of signal and morphology. There is no evidence of an intracranial mass or extraaxial fluid collection. Other Significant Findings: None. MRI BRAIN QUANTITATIVE: Exam Quality: Adequate for volumetric analysis. Quantitative Data: Total Hippocampal Volume: 5.54 Percentile for Similar Age: 9th Asymmetry Index: -1.73 Lateral Ventricular Volume: 27.1 Percentile for Similar Age: 41th Asymmetry Index: 4.47 Inferior Lateral Vent Volume: 1.18 Percentile for similar age: 5th Asymmetry Index: 34.5 Total Brain Volume 1162 Percentile for Similar Age: 99th Temporal Lobe Volume: 107 Temporal Lobe Percentile for Age: 11th Temporal Lobe Asymmetry Index: -0.5 Frontal Lobe Volume: 157 Frontal Lobe Percentile for Age: 52th Frontal Lobe Asymmetry Index: -0.09 Parietal Lobe Volume: 103 Parietal Lobe Percentile for Age: 56th Concordance between qualitative and quantitative hippocampal volume assessment: Concordant. Change in brain volumes: No previous volumetric study for comparison Mean hippocampal volume loss among normal elderly: 0.7% per year, (-0.3 to 1.7; Neva 2008; also Maurice 2010). IMPRESSION: * No evidence of an acute intracranial process or intracranial mass. * Mild generalized volume loss. * Chiari I malformation. * Hippocampal volumes at the 9 percentile when compared to age matched normal controls by quantitative analysis. * Mild nonspecific white matter disease likely reflective of chronic microvascular ischemia. REFERENCES: White matter lesions 0 No lesions (including symmetrical, well-defined caps or bands) 1 Focal lesions 2 Beginning of confluence 3 Diffuse involvement of entire region Basal ganglia lesions 0 No lesions 1 1 focal lesion ( > 5 mm) 2 >1 focal lesion 3 Confluent lesions Maurice Quezada, et al. The clinical use of structural MRI in Alzheimer disease. Nature Reviews Neurology 6;67 (2010). Neva et al. Validation of a fully automated 3D hippocampal segmentation method using subjects with Alzheimer's disease mild cognitive impairment, and elderly controls. Neuroimage 43;59 (2008). Wahlund et al. A New Rating Scale for Age-Related White Matter Changes Applicable to MRI and CT. Stroke. 32:1318 (2001). * Asymmetry index defined as difference between left and right volumes divided by mean (%). Age-matched reference charts measure total hippocampal volume (% of intracranial volume). See results from the analysis charts for details. Health Plan Specialist[facility] Transcribe Date/Time: Oct 04 2023 2:17P Dictated by : DAMIEN SOLIS MD This examination was interpreted and the report reviewed and electronically signed by: DAMIEN SOLIS MD on Oct 04 2023 2:20PM EST [id number] Normal [facility] MRI BRAIN WO IVCONon 023 MRI BRAIN WO IVCON * * *Final Report* * * DATE OF EXAM: Oct 04 2023 1:22PM [facility] 0294 - MRI BRAIN WO IVCON / PROCEDURE REASON: multiple diagnoses * * * * Physician Interpretation * * * * EXAMINATION: MRI BRAIN WO IVCON, MRI 3D POST PROCESSING HISTORY: Multiple diagnosis TECHNIQUE: Specialized brain MRI without contrast, using the ADNI dementia protocol and 3-D post-processing at an independent workstation under physician supervision using the Noonswoon software. MQ: [id number] COMPARISON: None RESULT: MRI BRAIN QUALITATIVE: Acute Intracranial Process: No restricted diffusion concerning for acute ischemia. No abnormal susceptibility concerning for acute hemorrhage. No evidence for acute intracranial abnormality. Chronic Intracranial Process: Patchy white matter T2 hyperintensity indicating chronic microvascular ischemia. Accentuation of CSF spaces indicating volume loss. No specific pattern of volume decrease is identified to raise concern for dementia syndromes. Age related white matter changes (ARWMC) rating: White matter lesions: 1 Basal ganglia lesions: 0 Prior parenchymal hemorrhage and location: Low lying cerebellar tonsils are identified with the tip of the cerebellar tonsils 4 mm inferior to foramen magnum without any intracranial structural anomalies with but with mild crowding within the posterior fossa compatible with Chiari I malformation. Suprasellar cistern is maintained and this is unlikely to represent intracranial hypotension but still may be excluded clinically if indicated. No evidence of parenchymal microhemorrhages on SWI. Qualitative brain and hippocampal volume: There is mild cortical volume loss in view of the mild enlargement of the cortical sulci. There is mild central white matter volume loss in view of the mild enlargement of the ventricular system. There is mild hippocampal volume loss relative to the parenchymal volume loss elsewhere based on visual inspection. Ventricles: Commensurate with volume loss. Brain Parenchymal Signal and Morphology: The brain parenchyma is otherwise within normal limits of signal and morphology. There is no evidence of an intracranial mass or extraaxial fluid collection. Other Significant Findings: None. MRI BRAIN QUANTITATIVE: Exam Quality: Adequate for volumetric analysis. Quantitative Data: Total Hippocampal Volume: 5.54 Percentile for Similar Age: 9th Asymmetry Index: -1.73 Lateral Ventricular Volume: 27.1 Percentile for Similar Age: 41th Asymmetry Index: 4.47 Inferior Lateral Vent Volume: 1.18 Percentile for similar age: 5th Asymmetry Index: 34.5 Total Brain Volume 1162 Percentile for Similar Age: 99th Temporal Lobe Volume: 107 Temporal Lobe Percentile for Age: 11th Temporal Lobe Asymmetry Index: -0.5 Frontal Lobe Volume: 157 Frontal Lobe Percentile for Age: 52th Frontal Lobe Asymmetry Index: -0.09 Parietal Lobe Volume: 103 Parietal Lobe Percentile for Age: 56th Concordance between qualitative and quantitative hippocampal volume assessment: Concordant. Change in brain volumes: No previous volumetric study for comparison Mean hippocampal volume loss among normal elderly: 0.7% per year, (-0.3 to 1.7; Neva 2008; also Maurice 2010). IMPRESSION: * No evidence of an acute intracranial process or intracranial mass. * Mild generalized volume loss. * Chiari I malformation. * Hippocampal volumes at the 9 percentile when compared to age matched normal controls by quantitative analysis. * Mild nonspecific white matter disease likely reflective of chronic microvascular ischemia. REFERENCES: White matter lesions 0 No lesions (including symmetrical, well-defined caps or bands) 1 Focal lesions 2 Beginning of confluence 3 Diffuse involvement of entire region Basal ganglia lesions 0 No lesions 1 1 focal lesion ( > 5 mm) 2 >1 focal lesion 3 Confluent lesions Maurice Quezada et al. The clinical use of structural MRI in Alzheimer disease. Nature Reviews Neurology 6;67 (2010). Neva et al. Validation of a fully automated 3D hippocampal segmentation method using subjects with Alzheimer's disease mild cognitive impairment, and elderly controls. Neuroimage 43;59 (2008). Danilo et al. A New Rating Scale for Age-Related White Matter Changes Applicable to MRI and CT. Stroke. 32:1318 (2001). * Asymmetry index defined as difference between left and right volumes divided by mean (%). Age-matched reference charts measure total hippocampal volume (% of intracranial volume). See results from the analysis charts for details. Health Plan Specialist: SAND[facility] Transcribe Date/Time: Oct 04 2023 2:17P Dictated by : DAMIEN SOLIS MD This examination was interpreted and the report reviewed and electronically signed by: DAMIEN SOLIS MD on Oct 04 2023 2:20PM EST [id number] Normal [facility] No Panel Informationon 10-04 [facility] CNOVon 2023 CNOV Office Visit (NEMGLADIS ) ERIN DYSON ([id number]) 1955 F Date Time Provider Department 08/19/23 10:40 AM OZZIE ROBERTSON JR During your visit today, we recorded the following information about you: Pulse Respiration Blood pressure Weight 64/minute 18/minute 131/89 63 kg Radha Manning LPN 2023 12:17 PM Signed There is no data to display for this encounter Ozzie Robertson Jr., MD 2023 12:17 PM Signed NEW PATIENT (CONSULT) HISTORY AND PHYSICAL EXAM [...] Recall: 5 Repeat numbers: 2/2 Repeat sentence: 12/30 Serial 7s: 100-97 0/3 Abstract: 11/29 Orientation: 05/03 Namin/3 Words being with 1 minute: iiiii iiii 0 A tap: 11/28 Delayed recall: 2/5 (4/5 [...] disturbance, mood disorder and recent psychosocial stressors. HEMATOLOGIC/LYMPHATIC/I MMUNOLOGIC:Negative for prolonged bleeding, bruising easily or swollen [...] RRR nl S1, S2. No carotid bruits. Ex (more content not included)... Normal [facility] T4 Free SerPl-mCncon 023 Free T4 [Mass/Vol] 1.4 ng/dL Normal 0.9-1.7 [facility] Comment on above: Order Comment: Speci men Type: BLOOD SPECIMENOrdering Facility: [facility] Address: [address] [place] [address] Performed By: #### 2 132-9, 3016-3, 3027 ####[facility] [id number] [address] [facility] TSH SerPl-aCncon 2023 TSH Qn 1.930 m[IU]/L Normal 0.270-4.200 [facility] Comment on above: Order Comment: Speci men Type: BLOOD SPECIMENOrdering Facility: [facility] Address: [address] [place] [address] Performed By: #### 2 132-9, 3016-3, 3027 ####[facility] [id number] [address] [facility] Vit B12 SerPl-mCncon 023 Cobalamin (Vitamin B12) [Mass/Vol] 780 pg/mL Normal 232-1245 [facility] Comment on above: Order Comment: Speci men Type: BLOOD SPECIMENOrdering Facility: [facility] Address: [address] [place] [address] Performed By: #### 2 132-9, 3016-3, 3027 ####[facility] [id number] [address] OF [place] CNPAna 06-08-2023 CNPN Telephone (KHARI) ERIN DYSON ([id number]) 1955 F Date Time Provider Department 7/12/23 NEUROLOGY PROVIDER KHARI During your visit today, we recorded the following information about you: Radha Manning LPN 06/08/2023 9:07 AM Signed Pt has upcoming appt on July [address] Robertson for memory loss and memory problems. No referral in chart or related information in chart. AUBREE Beal Jessica, LPN 06/08/2023 11:09 AM Signed Tc to pt with no answer. Left VM to return call to gather more information about her upcoming appointment for memory loss. AUBREE Beal Sherrie, RN 06/08/2023 1:28 PM Signed Patient returned call, regarding note below. 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 GISELE Espino Jessica, LPN 06/14/2023 1:25 PM Signed Fax sent to PCP to try and gather some office notes or more information regarding pt appointment. AUBREE Beal Jessica, LPN 06/15/2023 11:30 AM Signed Fax received from PCP. No memory loss concerns mentioned. States ' not ready for work up yet'. Sent to chart for scanning. Radha Manning LPN Allergies As of Date: 06/08/2023 (No Known Allergies) Date Reviewed: 04/09/2014 Reviewed by: Ryann Cabrera Ma - Fully Assessed Reason for Visit: Appointment [186] Prescriptions as of 06/15/2023 - BIOTIN ORAL Take by mouth. Problem List As Of Date 06/08/2023 Noted Resolved UNSP ABNORMAL MAMMOGRAM [R92.8] 06/03/2008 Fibrocystic Disease of Breast [N60.19] 08/18/2009 Vaginal wall prolapse without uterine prolapse *04/09/2014 Encounter Status:Closed by RADHA MANNING on 06/08/23 Normal [facility] CBC W/AUTO DIFF WBC ([id number])O rdered By: Waste Transportation Technician on 06-25-2022 Basophils (Bld) [#/Vol] 0.0 10*3/uL Normal 0.0-0.2 [facility]; [facility] Work Phone: Comment on above: PATIENT WAS FASTINGP ERFORMED BY: CAMMIE [id number] [facility] [id number] Information: NURSE DRAW; wellness labs for 812 Basophils/100 WBC (Bld) 1 % Normal [facility]; [facility] Work Phone: Comment on above: PATIENT WAS FASTINGP ERFORMED BY: [place] [id number] [facility] [id number] Information: NURSE DRAW; wellness labs for 812 Eosinophils (Bld) [#/Vol] 0.1 10*3/uL Normal 0.0-0.4 [facility]; [facility] Work Phone: Comment on above: PATIENT WAS FASTINGP ERFORMED BY: [place] [id number] [facility] [id number] Information: NURSE DRAW; wellness labs for 8 Eosinophils/100 WBC (Bld) 2 % Normal [facility]; [facility] Work Phone: Comment on above: PATIENT WAS FASTINGP ERFORMED BY: SriramSteven V[place] [id number] [facility] [id number] Information: NURSE DRAW; wellness labs for 07/09 Erythrocyte distribution width (RBC) [Ratio] 12.6 % Normal 11.7-15.4 [facility]; [facility] Work Phone: Comment on above: PATIENT WAS FASTINGP ERFORMED BY: LabSteven Ville [id number] [facility] [id number] Information: NURSE DRAW; wellness labs for 812 Hematocrit (Bld) [Volume fraction] 38.4 % Normal 34.0-46.6 [facility]; [facility] Work Phone: Comment on above: PATIENT WAS FASTINGP ERFORMED BY: LabSteven Ville [id number] [facility] [id number] Information: NURSE DRAW; wellness labs for 07/09 Hemoglobin (Bld) [Mass/Vol] 13.1 g/dL Normal 11.1-15.9 [facility]; [facility] Work Phone: Comment on above: PATIENT WAS FASTINGP ERFORMED BY: CAMMIE [facility] Oimjch2521 [facility] [id number] Information: NURSE DRAW; wellness labs for 07/09 Immature granulocytes (Bld) [#/Vol] 0.0 10*3/uL Normal 0.0-0.1 [facility]; [facility] Work Phone: Comment on above: PATIENT WAS FASTINGP ERFORMED BY: [address] [id number] Information: NURSE DRAW; wellness labs for 07/09 Immature granulocytes/100 WBC (Bld) 0 % Normal [facility]; [facility] Work Phone: Comment on above: PATIENT WAS FASTINGP ERFORMED BY: [address] [id number] Information: NURSE DRAW; wellness labs for 07/09 Lymphocytes (Bld) [#/Vol] 1.1 10*3/uL Normal 0.7-3.1 [facility]; [facility] Work Phone: Comment on above: PATIENT WAS FASTINGP ERFORMED BY: [address] [id number] Information: NURSE DRAW; wellness labs for 07/09 Lymphocytes/100 WBC (Bld) 29 % Normal [facility]; [facility] Work Phone: Comment on above: PATIENT WAS FASTINGP ERFORMED BY: [address] [id number] Information: NURSE DRAW; wellness labs for 07/09 MCH (RBC) [Entitic mass] 31.0 pg Normal 26.6-33.0 [facility]; [facility] Work Phone: Comment on above: PATIENT WAS FASTINGP ERFORMED BY: [address] [place] [id number] Information: NURSE DRAW; wellness labs for 07/09 MCHC (RBC) [Mass/Vol] 34.1 g/dL Normal 31.5-35.7 [facility]; [facility] Work Phone: Comment on above: PATIENT WAS FASTINGP ERFORMED BY: [place] [id number] [facility] [id number] Information: NURSE DRAW; wellness labs for 07/09 MCV (RBC) [Entitic vol] 91 fL Normal 79-97 [facility]; [facility] Work Phone: Comment on above: PATIENT WAS FASTINGP ERFORMED BY: [address] [id number] Information: NURSE DRAW; wellness labs for 07/09 Monocytes (Bld) [#/Vol] 0.2 10*3/uL Normal 0.1-0.9 [facility]; [facility] Work Phone: Comment on above: PATIENT WAS FASTINGP ERFORMED BY: CAMMIE [place] [id number] [facility] [id number] Information: NURSE DRAW; wellness labs for 07/09 Monocytes/100 WBC (Bld) 6 % Normal [facility]; [facility] Work Phone: Comment on above: PATIENT WAS FASTINGP ERFORMED BY: [place] [id number] [facility] [id number] Information: NURSE DRAW; wellness labs for 07/09 Neutrophils (Bld) [#/Vol] 2.3 10*3/uL Normal 1.4-7.0 [facility]; [facility] Work Phone: Comment on above: PATIENT WAS FASTINGP ERFORMED BY: [place] [id number] [facility] [id number] Information: NURSE DRAW; wellness labs for 07/09 Neutrophils/100 WBC (Bld) 62 % Normal [facility]; [facility] Work Phone: Comment on above: PATIENT WAS FASTINGP ERFORMED BY: CAMMIE [facility] Wqiqze4576 [address] [facility] [id number] Information: NURSE DRAW; wellness labs for 07/09 Platelets (Bld) [#/Vol] 223 10*3/uL Normal 150-450 [facility]; [facility] Work Phone: Comment on above: PATIENT WAS FASTINGP ERFORMED BY: [facility]co Gszcjm4659 [address] [facility] [id number] Information: NURSE DRAW; wellness labs for 07/09 RBC (Bld) [#/Vol] 4.23 10*6/uL Normal 3.77-5.28 Compr [facility] Internal [facility]; [facility] Work Phone: Comment on above: PATIENT WAS FASTINGP ERFORMED BY: CAMMIE [facility] Qqpzlf1722 [facility] [id number] Information: NURSE DRAW; wellness labs for 07/09 WBC (Bld) [#/Vol] 3.7 10*3/uL Normal 3.4-10.8 [facility] Internal Medicine; [facility] Work Phone: Comment on above: PATIENT WAS FASTINGP ERFORMED BY: CAM[facility]E [facility] Acjfja9501 [facility] [id number] Information: NURSE DRAW; wellness labs for 07/09 METABOLIC PANEL, COMPREHENSI VE ([id number])Ordered By: Waste Transportation Technician on 06-25-2022 Albumin [Mass/Vol] 4.4 g/dL Normal 3.8-4.8 [facility]; [facility] Work Phone: Comment on above: PATIENT WAS FASTINGP ERFORMED BY: CAMMIE [facility] Sbmnir7985 [facility] [id number] Albumin/Globulin [Mass ratio] 1.8 {ratio} Normal 1.2-2.2 [facility]; [facility] Work Phone: Comment on above: PATIENT WAS FASTINGP ERFORMED BY: CAMMIE [facility] Pvnxio3267 [facility] [id number] ALP [Catalytic activity/Vol] 52 U/L Normal 44-121 [facility]; [facility] Work Phone: Comment on above: PATIENT WAS FASTINGP ERFORMED BY: CB [facility] Jtkdoz5130 [address] RoadDublin [place] [id number] ALT [Catalytic activity/Vol] 14 U/L Normal 0-32 [facility]; [facility] Work Phone: Comment on above: PATIENT WAS FASTINGP ERFORMED BY: CB [facility] Eacfus4792 [address] RoadDublin [place] [id number] AST [Catalytic activity/Vol] 23 U/L Normal 0-40 [facility]; [facility] Work Phone: Comment on above: PATIENT WAS FASTINGP ERFORMED BY: CB [facility] Ufpubl8136 [address] RoadDublin [place] [id number] Bilirubin [Mass/Vol] 0.4 mg/dL Normal 0.0-1.2 [facility]; [facility] Work Phone: Comment on above: PATIENT WAS FASTINGP ERFORMED BY: CB [facility] Phcgru2593 [address] RoadDublin [place] [id number] Calcium [Mass/Vol] 10.2 mg/dL Normal 8.7-10.3 [facility]; [facility] Work Phone: Comment on above: PATIENT WAS FASTINGP ERFORMED BY: CB [facility] Usgwsy4220 [address] RoadDublin [place] [id number] Chloride [Moles/Vol] 105 mmol/L Normal 96-106 [facility]; [facility] Work Phone: Comment on above: PATIENT WAS FASTINGP ERFORMED BY: CB [facility] Qimngb4155 [address] RoadDublin [place] [id number] CO2 [Moles/Vol] 24 mmol/L Normal 20-29 [facility]; [facility] Work Phone: Comment on above: PATIENT WAS FASTINGP ERFORMED BY: CB [facility] Otzzph9392 [address] RoadDublin [place] [id number] Creatinine [Mass/Vol] 0.75 mg/dL Normal 0.57-1.00 [facility]; [facility] Work Phone: Comment on above: PATIENT WAS FASTINGP ERFORMED BY: CAMMIE [facility] Hgorpl8783 [address] RoadDublin [place] [id number] GFR/1.73 sq M.predicted among non-blacks MDRD (S/P/Bld) [Vol rate/Area] 87 mL/min/{1.73_m2} Normal Comprehensiv e Internal Medicine; [facility] Work Phone: Comment on above: PATIENT WAS FASTINGP ERFORMED BY: [facility] Hokjdv6922 [address] RoadDublin [place] [id number] Globulin (S) [Mass/Vol] 2.5 g/dL Normal 1.5-4.5 [facility]; [facility] Work Phone: Comment on above: PATIENT WAS FASTINGP ERFORMED BY: CAMMIE [facility] Hlbozg4745 [address] RoadDublin [place] [id number] Glucose [Mass/Vol] 98 mg/dL Normal 65-99 [facility]; [facility] Work Phone: Comment on above: PATIENT WAS FASTINGP ERFORMED BY: CAMMIE [facility] Reseir1689 [address] RoadDuin [place] [id number] Potassium [Moles/Vol] 4.2 mmol/L Normal 3.5-5.2 [facility]; [facility] Work Phone: Comment on above: PATIENT WAS FASTINGP ERFORMED BY: [facility] Dvpypi2973 [address] [facility] [place] [id number] Protein [Mass/Vol] 6.9 g/dL Normal 6.0-8.5 [facility]; [facility] Work Phone: Comment on above: PATIENT WAS FASTINGP ERFORMED BY: [facility] Yuycdl3103 [address] RoadDublin [place] [id number] Sodium [Moles/Vol] 143 mmol/L Normal 134-144 [facility]; [facility] Work Phone: Comment on above: PATIENT WAS FASTINGP ERFORMED BY: [facility] Oxjofw7838 [address] RoadDublin [place] [id number] Urea nitrogen [Mass/Vol] 14 mg/dL Normal 8-27 [facility]; [facility] Work Phone: Comment on above: PATIENT WAS FASTINGP ERFORMED BY: CAMMIE Labmari Mcneil6370 [address] RoadDublin [place] [id number] Urea nitrogen/Creatini ne [Mass ratio] 19 mg/mg Normal 12-28 [facility]; [facility] Work Phone: Comment on above: PATIENT WAS FASTINGP ERFORMED BY: CAMMIE Labmari JohnsonXnjavp5200 [address] Roadblin [place] [id number] URINALYSIS, W/ MICRO ([id number]) Ordered By: Waste Transportation Technician on 06-25-2022 Appearance (U) Clear Normal Comprehens ania [facility]; [facility] Work Phone: Comment on above: PATIENT WAS FASTINGP ERFORMED BY: CAMMIE Labamri JohnsonEablyq0664 [address] RoadDublin [place] [id number] Bilirubin Ql (U) Negative Normal Comprehe nsive Internal Medicine; [facility] Work Phone: Comment on above: PATIENT WAS FASTINGP ERFORMED BY: CAMMIE Labfredy Sjleof5861 [address] RoadDublin [place] [id number] Color (U) Yellow Normal [facility]; [facility] Work Phone: Comment on above: PATIENT WAS FASTINGP ERFORMED BY: CAMMIE Labmari Egvqve6338 [address] RoadDublin [place] [id number] Glucose Ql (U) Negative Normal Comprehens ania [facility]; [facility] Work Phone: Comment on above: PATIENT WAS FASTINGP ERFORMED BY: CAMMIE [facility] Isdlev3553 [address] RoadDublin [place] [id number] Hemoglobin Ql (U) Negative Normal Compreh ensive Internal Medicine; [facility] Work Phone: Comment on above: PATIENT WAS FASTINGP ERFORMED BY: CAMMIE [facility] Awqnvp4813 [address] RoadDublin [place] [id number] Ketones Ql (U) Negative Normal Comprehens ania [facility]; [facility] Work Phone: Comment on above: PATIENT WAS FASTINGP ERFORMED BY: CAMMIE Johnsonlin6370 [address] RoadDublin [place] [id number] Leukocyte esterase Test strip Ql (U) Trace Abnormal [facility]; [facility] Work Phone: Comment on above: PATIENT WAS FASTINGP ERFORMED BY: CAMMIE Johnsonlin6370 [address] RoadDublin [place] [id number] Microscopic observation LM Nom (Urine sed) See below: Normal [facility]; [facility] Work Phone: Comment on above: Microscopic was asif cated and was performed. PATIENT WAS FASTINGP ERFORMED BY: CAMMIE Johnsonlin6370 [address] RoadDublin [place] [id number] Nitrite Ql (U) Negative Normal Comprehens ania [facility]; [facility] Work Phone: Comment on above: PATIENT WAS FASTINGP ERFORMED BY: CAMMIE Mcneil6370 [address] RoadDuin [place] [id number] pH (U) 6.5 [pH] Normal 5.0-7.5 [facility]; [facility] Work Phone: Comment on above: PATIENT WAS FASTINGP ERFORMED BY: CAMMIE Johnsonlin6370 [address] RoadDublin [place] [id number] Protein Ql (U) Negative Normal Comprehens ania [facility]; [facility] Work Phone: Comment on above: PATIENT WAS FASTINGP ERFORMED BY: CAMMIE Johnsonlin6[address] [facility]in [place] [id number] Specific gravity (U) [Rel density] 1.006 1 Normal 1.005-1.030 [facility]; [facility] Work Phone: Comment on above: PATIENT WAS FASTINGP ERFORMED BY: CAMMIE Johnsonlin[address] [facility]blin [place] [id number] Urobilinogen (U) [Mass/Vol] 0.2 mg/dL Normal 0.2-1.0 [facility]; [facility] Work Phone: Comment on above: PATIENT WAS FASTINGP ERFORMED BY: CAMMIE Johnsonlin6370 [facility] [id number] CBC WITH MANUAL DIFF ([id number]) Ordered By: Waste Transportation Technician on 06-23-2021 Basophils (Bld) [#/Vol] 0.0 10*3/uL Normal 0.0-0.2 [facility]; [facility] Work Phone: Comment on above: PATIENT NOT FASTINGP ERFORMED BY: CAMMIE Gibbs Cfpsmg0168 [facility]vanL[facility] [id number] Information: NURSE DRAW Basophils/100 WBC (Bld) 1 % Normal [facility]; [facility] Work Phone: Comment on above: PATIENT NOT FASTINGP ERFORMED BY: CAMMIE Gibbs Bookqa1856 [facility] [id number] Information: NURSE DRAW Eosinophils (Bld) [#/Vol] 0.1 10*3/uL Normal 0.0-0.4 [facility]; [facility] Work Phone: Comment on above: PATIENT NOT FASTINGP ERFORMED BY: CAMMIE Gibbs Uthyfk5735 [facility] [id number] Information: NURSE DRAW Eosinophils/100 WBC (Bld) 3 % Normal [facility]; [facility] Work Phone: Comment on above: PATIENT NOT FASTINGP ERFORMED BY: CAMMIE [facility]6370 [facility] [id number] Information: NURSE DRAW Erythrocyte distribution width (RBC) [Ratio] 12.0 % Normal 11.7-15.4 [facility]; [facility] Work Phone: Comment on above: PATIENT NOT FASTINGP ERFORMED BY: LabCoCharles Ville [id number] [facility] [id number] Information: NURSE DRAW Hematocrit (Bld) [Volume fraction] 42.3 % Normal 34.0-46.6 [facility]; [facility] Work Phone: Comment on above: PATIENT NOT FASTINGP ERFORMED BY: CAMMIE LabCoCharles Ville [id number] [facility] [id number] Information: NURSE DRAW Hemoglobin (Bld) [Mass/Vol] 14.1 g/dL Normal 11.1-15.9 [facility]; [facility] Work Phone: Comment on above: PATIENT NOT FASTINGP ERFORMED BY: CAMMIE Gibbs Arrger1792 [facility] [id number] Information: NURSE DRAW Immature granulocytes (Bld) [#/Vol] 0.0 10*3/uL Normal 0.0-0.1 [facility]; [facility] Work Phone: Comment on above: PATIENT NOT FASTINGP ERFORMED BY: [address] [id number] Information: NURSE DRAW Immature granulocytes/100 WBC (Bld) 0 % Normal [facility]; [facility] Work Phone: Comment on above: PATIENT NOT FASTINGP ERFORMED BY: [address] [id number] Information: NURSE DRAW Lymphocytes (Bld) [#/Vol] 1.1 10*3/uL Normal 0.7-3.1 [facility]; [facility] Work Phone: Comment on above: PATIENT NOT FASTINGP ERFORMED BY: Sriram[address] [id number] Information: NURSE DRAW Lymphocytes/100 WBC (Bld) 28 % Normal [facility]; [facility] Work Phone: Comment on above: PATIENT NOT FASTINGP ERFORMED BY: [address] [id number] Information: NURSE DRAW MCH (RBC) [Entitic mass] 30.8 pg Normal 26.6-33.0 [facility]; [facility] Work Phone: Comment on above: PATIENT NOT FASTINGP ERFORMED BY: [address] [id number] Information: NURSE DRAW MCHC (RBC) [Mass/Vol] 33.3 g/dL Normal 31.5-35.7 [facility]; [facility] Work Phone: Comment on above: PATIENT NOT FASTINGP ERFORMED BY: CAMMIE [address] [facility] [id number] Information: NURSE DRAW MCV (RBC) [Entitic vol] 92 fL Normal 79-97 [facility]; [facility] Work Phone: Comment on above: PATIENT NOT FASTINGP ERFORMED BY: CAMMIE Moody [facility] [id number] Information: NURSE DRAW Monocytes (Bld) [#/Vol] 0.2 10*3/uL Normal 0.1-0.9 [facility]; [facility] Work Phone: Comment on above: PATIENT NOT FASTINGP ERFORMED BY: CAMMIE Mcneil6370 [facility] [id number] Information: NURSE DRAW Monocytes/100 WBC (Bld) 6 % Normal [facility]; [facility] Work Phone: Comment on above: PATIENT NOT FASTINGP ERFORMED BY: CAMMIE Mcneil6370 [facility] [id number] Information: NURSE DRAW Neutrophils (Bld) [#/Vol] 2.4 10*3/uL Normal 1.4-7.0 [facility]; [facility] Work Phone: Comment on above: PATIENT NOT FASTINGP ERFORMED BY: CAMMIE Johnsonlin6370 [facility] [id number] Information: NURSE DRAW Neutrophils/100 WBC (Bld) 62 % Normal [facility]; [facility] Work Phone: Comment on above: PATIENT NOT FASTINGP ERFORMED BY: CAMMIE Johnsonlin6370 [facility] [id number] Information: NURSE DRAW Platelets (Bld) [#/Vol] 206 10*3/uL Normal 150-450 [facility]; [facility] Work Phone: Comment on above: PATIENT NOT FASTINGP ERFORMED BY: CAMMIE [facility] Rpmolw3253 [address] RoadDublin [place] [id number] Information: NURSE DRAW RBC (Bld) [#/Vol] 4.58 10*6/uL Normal 3.77-5.28 Compr [facility] Internal [facility]; [facility] Work Phone: Comment on above: PATIENT NOT FASTINGP ERFORMED BY: CAMMIE [facility] Mdddzs4200 [address] RoadDublin [place] [id number] Information: NURSE DRAW WBC (Bld) [#/Vol] 3.8 10*3/uL Normal 3.4-10.8 Compr hensive Internal Medicine; [facility] Work Phone: Comment on above: PATIENT NOT FASTINGP ERFORMED BY: CAMMIE Johnsonlin6370 [address] RoadDublin [place] [id number] Information: NURSE DRAW URINALYSIS ([id number])Ordered By : Waste Transportation Technician on 06-23-2021 Appearance (U) Clear Normal Comprehens [facility]ia [facility]; [facility] Work Phone: Comment on above: PATIENT NOT FASTINGP ERFORMED BY: CAMMIE [facility] Iihelj2212 [address] RoadDublin [place] [id number] Bilirubin Ql (U) Negative Normal Comprehe nsive Internal Medicine; [facility] Work Phone: Comment on above: PATIENT NOT FASTINGP ERFORMED BY: CAMMIE [facility] Gfxsjh3108 [address] RoadDublin [place] [id number] Color (U) Yellow Normal [facility]; [facility] Work Phone: Comment on above: PATIENT NOT FASTINGP ERFORMED BY: CAMMIE [facility] Gowzvo5358 [address] RoadDublin [place] [id number] Glucose Ql (U) Negative Normal Comprehens ania [facility]; [facility] Work Phone: Comment on above: PATIENT NOT FASTINGP ERFORMED BY: CAMMIE [facility] Vgxfzg9201 [address] RoadDublin [place] [id number] Hemoglobin Ql (U) Negative Normal Compreh ensive Internal Medicine; [facility] Work Phone: Comment on above: PATIENT NOT FASTINGP ERFORMED BY: CAMMIE LabMari Hspryx6468 [address] RoadDublin [place] [id number] Ketones Ql (U) Negative Normal Comprehens ania [facility]; [facility] Work Phone: Comment on above: PATIENT NOT FASTINGP ERFORMED BY: CAMMIE LabMari JohnsonObbuyj5127 [address] RoadDublin [place] [id number] Leukocyte esterase Test strip Ql (U) Negative Normal [facility]; [facility] Work Phone: Comment on above: PATIENT NOT FASTINGP ERFORMED BY: CAMMIE LabMari JohnsonKxgmvs0680 [address] RoadDublin [place] [id number] Microscopic observation LM Nom (Urine sed) MICNIP Normal [facility]; [facility] Work Phone: Comment on above: Microscopic not asif cated and not performed. PATIENT NOT FASTINGP ERFORMED BY: CAMMIE LabMari JohnsonGnabtm8854 [address] RoadDublin [place] [id number] Nitrite Ql (U) Negative Normal Comprehens ania [facility]; [facility] Work Phone: Comment on above: PATIENT NOT FASTINGP ERFORMED BY: CAMMIE LabMari JohnsonZmrwta0795 [address] RoadDublin [place] [id number] pH (U) 6.5 [pH] Normal 5.0-7.5 [facility]; [facility] Work Phone: Comment on above: PATIENT NOT FASTINGP ERFORMED BY: CAMMIE LabMari JohnsonYzycxv5136 [address] RoadDublin [place] [id number] Protein Ql (U) Negative Normal Comprehens ania [facility]; [facility] Work Phone: Comment on above: PATIENT NOT FASTINGP ERFORMED BY: CAMMIE LabMari JohnsonKzmvpr0496 [address] RoadDublin [place] [id number] Specific gravity (U) [Rel density] 1.005 1 Normal 1.005-1.030 [facility]; [facility] Work Phone: Comment on above: PATIENT NOT FASTINGP ERFORMED BY: CAMMIE [facility] Kmbwpv8943 [address] RoadDublin [place] [id number] Urobilinogen (U) [Mass/Vol] 0.2 mg/dL Normal 0.2-1.0 [facility]; [facility] Work Phone: Comment on above: PATIENT NOT FASTINGP ERFORMED BY: [facility] Bvebvh2932 [facility] [id number] Vital Signs Date Time Vital Sign Value Performing Clinician Facility 05-04-2024 08:34-0400 Body weight 62.32 kg Ozzie Robertson Jr., MD Work Phone: [facility] 05-04-2024 08:34-0400 Diastolic blood pressure 76 mm[Hg] Ozzie Robertson Jr., MD Work Phone: [facility] 05-04-2024 08:34-0400 Heart rate 66 /min Ozzie Robertson Jr., MD Work Phone: [facility] 05-04-2024 08:34-0400 Respiratory rate 16 /min Ozzie Robertson Jr., MD Work Phone: [facility] 05-04-2024 08:34-0400 SaO2% (BldA) [Mass fraction] 95 % Ozzie Robertson Jr., MD Work Phone: [facility] 05-04-2024 08:34-0400 Systolic blood pressure 122 mm[Hg] Ozzie Robertson Jr., MD Work Phone: [facility] 12-30-2023 09:01-0500 Body weight 62.69 kg Ozzie Robertson Jr., MD Work Phone: [facility] 12-30-2023 09:01-0500 Diastolic blood pressure 72 mm[Hg] Ozzie Robertson Jr., MD Work Phone: [facility] 12-30-2023 09:01-0500 Heart rate 78 /min Ozzie Robertson Jr., MD Work Phone: [facility] 12-30-2023 09:01-0500 Respiratory rate 16 /min Ozzie Robertson Jr., MD Work Phone: [facility] 12-30-2023 09:01-0500 SaO2% (BldA) [Mass fraction] 97 % Ozzie Robertson Jr., MD Work Phone: [facility] 12-30-2023 09:01-0500 Systolic blood pressure 124 mm[Hg] Ozzie Robertson Jr., MD Work Phone: [facility] 2023 10:29-0400 Body weight 63.05 kg Ozzie Robertson Jr., MD Work Phone: [facility] 2023 10:29-0400 Diastolic blood pressure 89 mm[Hg] Ozzie Robertson Jr., MD Work Phone: [facility] 2023 10:29-0400 Heart rate 64 /min Ozzie Robertson Jr., MD Work Phone: [facility] 2023 10:29-0400 Respiratory rate 18 /min Ozzie Robertson Jr., MD Work Phone: [facility] 2023 10:29-0400 SaO2% (BldA) [Mass fraction] 96 % Ozzie Robertson Jr., MD Work Phone: [facility] 2023 10:29-0400 Systolic blood pressure 131 mm[Hg] Ozzie Robertson Jr., MD Work Phone: [facility] 07-12-2023 13:36-0400 Body height 162.56 cm [facility]; [facility] Work Phone: 07-12-2023 13:36-0400 Body mass index (BMI) [Ratio] 24.44 kg/m2 [facility]; [facility] Work Phone: 07-12-2023 13:36-0400 Body surface area Derived from formula 1.69 m2 Tonie Langford [facility]; [facility] Work Phone: 07-12-2023 13:36-0400 Body temperature 98.7 [degF] Tonie Langford [facility]; [facility] Work Phone: Comment on above: Method: Thermal Scan 07-12-2023 13:36-0400 Body weight 64.58 kg Tonie Langford [facility]; [facility] Work Phone: 07-12-2023 13:36-0400 Diastolic blood pressure 78 mm[Hg] Tonie Langford [facility]; [facility] Work Phone: Comment on above: Patient Position: Sitting; Cuff Location : Left Arm; Cuff Size: Standard 07-12-2023 13:36-0400 Heart rate 60 /min Tonie Langford [facility]; [facility] Work Phone: Comment on above: Pattern: Regular 07-12-2023 13:36-0400 Respiratory rate 16 /min Tonie Langford [facility]; [facility] Work Phone: Comment on above: Pattern: Unlabored 07-12-2023 13:36-0400 Systolic blood pressure 128 mm[Hg] Tonie Langford [facility]; [facility] Work Phone: Comment on above: Patient Position: Sitting; Cuff Location : Left Arm; Cuff Size: Standard 01-11-2023 13:06-0500 Body height 162.56 cm Tonie Langford [facility]; [facility] Work Phone: 01-11-2023 13:06-0500 Body mass index (BMI) [Ratio] 24.44 kg/m2 Tonie Langford [facility]; [facility] Work Phone: 01-11-2023 13:06-0500 Body surface area Derived from formula 1.69 m2 Tonie Langford [facility]; [facility] Work Phone: 01-11-2023 13:06-0500 Body temperature 97.4 [degF] Tonie Langford [facility]; [facility] Work Phone: Comment on above: Method: Thermal Scan 01-11-2023 13:06-0500 Body weight 64.58 kg Tonie Langford [facility]; [facility] Work Phone: 01-11-2023 13:06-0500 Diastolic blood pressure 78 mm[Hg] Tonie Langford [facility]; [facility] Work Phone: Comment on above: Patient Position: Sitting; Cuff Location : Left Arm; Cuff Size: Standard 01-11-2023 13:06-0500 Heart rate 79 /min Toniebridgett Langford [facility]; [facility] Work Phone: Comment on above: Pattern: Regular 01-11-2023 13:06-0500 Respiratory rate 16 /min Tonie Langford [facility]; [facility] Work Phone: Comment on above: Pattern: Unlabored 01-11-2023 13:06-0500 SaO2% (BldA) [Mass fraction] 96 % [facility]; [facility] Work Phone: Comment on above: Room air 01-11-2023 13:06-0500 Systolic blood pressure 118 mm[Hg] [facility]; [facility] Work Phone: Comment on above: Patient Position: Sitting; Cuff Location : Left Arm; Cuff Size: Standard 07-09-2022 07:28-0400 Body height 162.56 cm [facility]; [facility] Work Phone: 07-09-2022 07:28-0400 Body mass index (BMI) [Ratio] 24.1 kg/m2 [facility]; [facility] Work Phone: 07-09-2022 07:28-0400 Body surface area Derived from formula 1.68 m2 [facility]; [facility] Work Phone: 07-09-2022 07:28-0400 Body temperature 97.1 [degF] Kayela Gina [employer] [facility]; [facility] Work Phone: 07-09-2022 07:28-0400 Body weight 63.67 [facility]; [facility] Work Phone: 07-09-2022 07:28-0400 Diastolic blood pressure 80 mm[Hg] [facility]; [facility] Work Phone: Comment on above: Patient Position: Sitting; Cuff Location : Left Arm; Cuff Size: Standard 07-09-2022 07:28-0400 Heart rate 55 /min [facility]; [facility] Work Phone: Comment on above: Pattern: Regular 07-09-2022 07:28-0400 Respiratory rate 16 /min [facility]; [facility] Work Phone: Comment on above: Pattern: Unlabored 07-09-2022 07:28-0400 SaO2% (BldA) [Mass fraction] 95 % [facility]; [facility] Work Phone: Comment on above: Room air 07-09-2022 07:28-0400 Systolic blood pressure 122 mm[Hg] [facility]; [facility] Work Phone: Comment on above: Patient Position: Sitting; Cuff Location : Left Arm; Cuff Size: Standard 04-28-2022 11:56-0400 Body height 162.56 cm Rajat A Fast DO Work Phone: [facility]; [facility] Work Phone: 04-28-2022 11:56-0400 Body mass index (BMI) [Ratio] 23.69 kg/m2 Rajat A Fast DO Work Phone: [facility]; [facility] Work Phone: 04-28-2022 11:56-0400 Body surface area Derived from formula 1.67 m2 Rajat A Fast DO Work Phone: [facility]; [facility] Work Phone: 04-28-2022 11:56-0400 Body temperature 98 [degF] Rajat A Fast DO Work Phone: [facility]; [facility] Work Phone: Comment on above: Method: Tympanic 04-28-2022 11:56-0400 Body weight 62.6 kg Rajat A Fast DO Work Phone: [facility]; [facility] Work Phone: 04-28-2022 11:56-0400 Diastolic blood pressure 68 mm[Hg] Rajat A Fast DO Work Phone: [facility]; [facility] Work Phone: Comment on above: Patient Position: Sitting; Cuff Location : Left Arm; Cuff Size: Standard 04-28-2022 11:56-0400 Heart rate 72 /min Rajat A Fast DO Work Phone: [facility]; [facility] Work Phone: Comment on above: Pattern: Regular 04-28-2022 11:56-0400 Respiratory rate 16 /min Rajat A Fast DO Work Phone: [facility]; [facility] Work Phone: Comment on above: Pattern: Unlabored 04-28-2022 11:56-0400 SaO2% (BldA) [Mass fraction] 97 % Rajat A Fast DO Work Phone: [facility]; [facility] Work Phone: Comment on above: Room air 04-28-2022 11:56-0400 Systolic blood pressure 112 mm[Hg] Rajat A Fast DO Work Phone: [facility]; [facility] Work Phone: Comment on above: Patient Position: Sitting; Cuff Location : Left Arm; Cuff Size: Standard 12-29-2021 13:33-0500 Body height 162.56 cm Tonie Langford CMA [facility]; [facility] Work Phone: 12-29-2021 13:33-0500 Body mass index (BMI) [Ratio] 24.57 kg/m2 Tonie Langford [facility]; [facility] Work Phone: 12-29-2021 13:33-0500 Body surface area Derived from formula 1.7 m2 Tonie Langford [facility]; [facility] Work Phone: 12-29-2021 13:33-0500 Body temperature 96.9 [degF] Tonie Langford [facility]; [facility] Work Phone: Comment on above: Method: Thermal Scan 12-29-2021 13:33-0500 Body weight 64.92 kg Tonie Langford [facility]; [facility] Work Phone: 12-29-2021 13:33-0500 Diastolic blood pressure 78 mm[Hg] Tonie Langford [facility]; [facility] Work Phone: Comment on above: Patient Position: Sitting; Cuff Location : Left Arm; Cuff Size: Standard 12-29-2021 13:33-0500 Heart rate 60 /min Tonie Langford [facility]; [facility] Work Phone: Comment on above: Pattern: Regular 12-29-2021 13:33-0500 Respiratory rate 16 /min Tonie Langford [facility]; [facility] Work Phone: Comment on above: Pattern: Unlabored 12-29-2021 13:33-0500 Systolic blood pressure 120 mm[Hg] Tonie Langford [facility]; [facility] Work Phone: Comment on above: Patient Position: Sitting; Cuff Location : Left Arm; Cuff Size: Standard 07-14-2021 10:55-0400 Body height 162.56 cm Tonie Langford [facility]; [facility] Work Phone: 07-14-2021 10:55-0400 Body mass index (BMI) [Ratio] 24.05 kg/m2 Tonie Langford [facility]; [facility] Work Phone: 07-14-2021 10:55-0400 Body surface area Derived from formula 1.68 m2 Tonie Langford [facility]; [facility] Work Phone: 07-14-2021 10:55-0400 Body temperature 97.1 [degF] Tonie Langford [facility]; [facility] Work Phone: Comment on above: Method: Thermal Scan 07-14-2021 10:55-0400 Body weight 63.56 kg Tonie Langford [facility]; [facility] Work Phone: 07-14-2021 10:55-0400 Diastolic blood pressure 82 mm[Hg] Tonie Langford [facility]; [facility] Work Phone: Comment on above: Patient Position: Sitting; Cuff Location : Left Arm; Cuff Size: Standard 07-14-2021 10:55-0400 Heart rate 83 /min Tonie Langford [facility]; [facility] Work Phone: Comment on above: Pattern: Regular 07-14-2021 10:55-0400 Respiratory rate 16 /min Tonie Langford [facility]; [facility] Work Phone: Comment on above: Pattern: Unlabored 07-14-2021 10:55-0400 Systolic blood pressure 120 mm[Hg] Tonie Langford [facility]; [facility] Work Phone: Comment on above: Patient Position: Sitting; Cuff Location : Left Arm; Cuff Size: Standard 06-09-2021 08:06-0400 Body height 162.56 cm Tonie Langford [facility]; [facility] Work Phone: 06-09-2021 08:06-0400 Body mass index (BMI) [Ratio] 24.03 kg/m2 Tonie Langford [facility]; [facility] Work Phone: 06-09-2021 08:06-0400 Body surface area Derived from formula 1.68 m2 Tonie Langford [facility]; [facility] Work Phone: 06-09-2021 08:06-0400 Body temperature 96.9 [degF] Tonie Langford [facility]; [facility] Work Phone: Comment on above: Method: Thermal Scan 06-09-2021 08:06-0400 Body weight 63.5 kg Tonie Langford [facility]; [facility] Work Phone: 06-09-2021 08:06-0400 Diastolic blood pressure 64 mm[Hg] Tonie Langford [facility]; [facility] Work Phone: Comment on above: Patient Position: Sitting; Cuff Location : Left Arm; Cuff Size: Standard 06-09-2021 08:06-0400 Respiratory rate 16 /min Tonie Langford [facility]; [facility] Work Phone: Comment on above: Pattern: Unlabored 06-09-2021 08:06-0400 Systolic blood pressure 122 mm[Hg] Tonie Langford [facility]; [facility] Work Phone: Comment on above: Patient Position: Sitting; Cuff Location : Left Arm; Cuff Size: Standard 05-07-2021 07:41-0400 Body height 162.56 cm [facility]; [facility] Work Phone: 05-07-2021 07:41-0400 Body mass index (BMI) [Ratio] 24.37 kg/m2 [facility]; [facility] Work Phone: 05-07-2021 07:41-0400 Body surface area Derived from formula 1.69 m2 [facility]; [facility] Work Phone: 05-07-2021 07:41-0400 Body temperature 96.9 [degF] [facility]; [facility] Work Phone: Comment on above: Method: Thermal Scan 05-07-2021 07:41-0400 Body weight 64.41 kg [facility]; [facility] Work Phone: 05-07-2021 07:41-0400 Diastolic blood pressure 74 mm[Hg] [facility]; [facility] Work Phone: Comment on above: Patient Position: Sitting; Cuff Location : Left Arm; Cuff Size: Standard 05-07-2021 07:41-0400 Heart rate 59 /min [facility]; [facility] Work Phone: Comment on above: Pattern: Regular 05-07-2021 07:41-0400 Respiratory rate 16 /min [facility]; [facility] Work Phone: Comment on above: Pattern: Unlabored 05-07-2021 07:41-0400 SaO2% (BldA) [Mass fraction] 96 % [facility]; [facility] Work Phone: Comment on above: Room air 05-07-2021 07:41-0400 Systolic blood pressure 120 mm[Hg] [facility]; [facility] Work Phone: Comment on above: Patient Position: Sitting; Cuff Location : Left Arm; Cuff Size: Standard 12-08-2020 14:08-0500 BMI (Body Mass Index) 24.37 kg/m2 [facility]; [facility] Work Phone: 12-08-2020 14:08-0500 Body weight 64.41 kg [facility]; [facility] Work Phone: 12-08-2020 14:08-0500 BSA (Body Surface Area) 1.69 m2 [facility]; [facility] Work Phone: 12-08-2020 14:08-0500 Height 162.56 cm [facility]; [facility] Work Phone: 08-20-2020 11:39-0400 BMI (Body Mass Index) 24.37 kg/m2 Tatiana Thompson [employer] [facility] Work Phone: 08-20-2020 11:39-0400 Body Temperature 97.3 [degF] Tatiana Thompson [facility] Work Phone: Comment on above: Method: Infrared 08-20-2020 11:39-0400 Body weight 64.41 kg Tatiana Thompson [facility] Work Phone: 08-20-2020 11:39-0400 BP Diastolic 88 mm[Hg] Tatiana Thompson [facility] Work Phone: Comment on above: Patient Position: Sitting; Cuff Location : Left Arm; Cuff Size: Standard 08-20-2020 11:39-0400 BP Systolic 128 mm[Hg] Tatiana Thompson [facility] Work Phone: Comment on above: Patient Position: Sitting; Cuff Location : Left Arm; Cuff Size: Standard 08-20-2020 11:39-0400 BSA (Body Surface Area) 1.69 m2 Tatiana Thompson [facility] Work Phone: 08-20-2020 11:39-0400 Height 162.56 cm Tatiana Thompson [facility] Work Phone: 08-20-2020 11:39-0400 Pulse (Heart Rate) 60 /min Tatiana Thompson [facility] Medicine Work Phone: Comment on above: Pattern: Regular 08-20-2020 11:39-0400 Pulse Oximetry 97 % Dee Alvarez [facility] Internal Medicine Work Phone: Comment on above: Room air 08-20-2020 11:39-0400 Respiratory Rate 18 /min Tatiana Thompson [facility] Work Phone: Comment on above: Pattern: Unlabored 08-20-2020 11:39-0400 SaO2% (BldA) [Mass fraction] 97 % Tatiana Thompson [facility]; [facility] Work Phone: Comment on above: Room air 04-04-2020 11:47-0400 BMI (Body Mass Index) 24.89 kg/m2 Tatiana Thompson [employer] [facility] Work Phone: 04-04-2020 11:47-0400 Body Temperature 97 [degF] Tatiana Thompson [facility] Work Phone: Comment on above: Method: Temporal 04-04-2020 11:47-0400 Body weight 65.77 kg Tatiana Thompson [facility] Work Phone: 04-04-2020 11:47-0400 BP Diastolic 88 mm[Hg] Tatiana Thompson [facility] Work Phone: Comment on above: Patient Position: Sitting; Cuff Location : Left Arm; Cuff Size: Standard 04-04-2020 11:47-0400 BP Systolic 126 mm[Hg] Tatiana Thompson [facility] Work Phone: Comment on above: Patient Position: Sitting; Cuff Location : Left Arm; Cuff Size: Standard 04-04-2020 11:47-0400 BSA (Body Surface Area) 1.71 m2 Tatiana Thompson [facility] Work Phone: 04-04-2020 11:47-0400 Height 162.56 cm Tatiana Thompson [facility] Work Phone: 04-04-2020 11:47-0400 Pulse (Heart Rate) 56 /min Tatiana Thompson [facility] Work Phone: Comment on above: Pattern: Regular 04-04-2020 11:47-0400 Pulse Oximetry 95 % Dee Alvarez [facility] Medicine Work Phone: Comment on above: Room air 04-04-2020 11:47-0400 Respiratory Rate 18 /min Tatiana Thompson [facility] Work Phone: Comment on above: Pattern: Unlabored 04-04-2020 11:47-0400 SaO2% (BldA) [Mass fraction] 95 % Tatiana Thompson [facility]; [facility] Work Phone: Comment on above: Room air 08-10-2016 13:56-0400 BMI (Body Mass Index) 24.89 kg/m2 Karime mercer Internal Medicine Work Phone: 08-10-2016 13:56-0400 Body Temperature 98.4 [degF] Karime Slarb [employer]PER[employer] [facility] Work Phone: 08-10-2016 13:56-0400 Body weight 65.77 kg Karime Slarb [employer] OPER[employer] [facility] Work Phone: 08-10-2016 13:56-0400 BP Diastolic 76 mm[Hg] Karime Slarb [employer] PH[employer] OPERATOR [facility] Work Phone: Comment on above: Patient Position: Sitting; Cuff Location : Left Arm; Cuff Size: Standard 08-10-2016 13:56-0400 BP Systolic 118 mm[Hg] Karime Slarb [employer] OPERATOR [facility] Work Phone: Comment on above: Patient Position: Sitting; Cuff Location : Left Arm; Cuff Size: Standard 08-10-2016 13:56-0400 BSA (Body Surface Area) 1.71 m2 Karime Slarb [employer] OPERATOR [facility] Work Phone: 08-10-2016 13:56-0400 Height 162.56 cm Karime Slarb [employer] PH[employer] OPERATOR [facility] Work Phone: 08-10-2016 13:56-0400 Pulse (Heart Rate) 55 /min Karime Slarb [employer] PH[employer] OPERATOR [facility] Work Phone: Comment on above: Pattern: Regular 08-10-2016 13:56-0400 Pulse Oximetry 97 % Dee Antonio [facility] Work Phone: Comment on above: Room air 08-10-2016 13:56-0400 Respiratory Rate 16 /min Karime Slarb [employer]IRE PHOTO OPERATOR [facility] Work Phone: Comment on above: Pattern: Unlabored 08-10-2016 13:56-0400 SaO2% (BldA) [Mass fraction] 97 % Karime Slarb [employer] PH[employer] OPERATOR [facility]; [facility] Work Phone: Comment on above: Room air 08-07-2015 12:01-0400 BMI (Body Mass Index) 23.86 kg/m2 Lovely Andrea [facility] Internal Medicine Work Phone: 08-07-2015 12:01-0400 Body Temperature 97.8 [degF] Lovely Andrea [facility] Internal Medicine Work Phone: 08-07-2015 12:01-0400 Body weight 63.05 kg Lovely Perezviolettatavon [facility] Internal Medicine Work Phone: 08-07-2015 12:01-0400 BP Diastolic 72 mm[Hg] Lovely Emre [facility] Medicine Work Phone: Comment on above: Patient Position: Sitting; Cuff Location : Left Arm; Cuff Size: Standard 08-07-2015 12:01-0400 BP Systolic 112 mm[Hg] Lovely Perezdavina [facility] Medicine Work Phone: Comment on above: Patient Position: Sitting; Cuff Location : Left Arm; Cuff Size: Standard 08-07-2015 12:01-0400 BSA (Body Surface Area) 1.68 m2 Lovely Emre [facility] Internal Medicine Work Phone: 08-07-2015 12:01-0400 Height 162.56 cm Lovely Emre [facility] Medicine Work Phone: 08-07-2015 12:01-0400 Pulse (Heart Rate) 62 /min Lovely Espinalensiv e Internal Medicine Work Phone: Comment on above: Pattern: Regular 08-07-2015 12:01-0400 Pulse Oximetry 97 % Dee Alvarez [facility] Internal Medicine Work Phone: Comment on above: Room air 08-07-2015 12:01-0400 Respiratory Rate 16 /min Lovely Emre [facility] Work Phone: Comment on above: Pattern: Unlabored 08-07-2015 12:01-0400 SaO2% (BldA) [Mass fraction] 97 % Lovely Andrea [facility]; [facility] Work Phone: Comment on above: Room air 07-22-2015 10:20-0400 BMI (Body Mass Index) 23.86 kg/m2 Lovely Andrea [facility] Work Phone: 07-22-2015 10:20-0400 Body Temperature 98.2 [degF] Lovely Andrea [facility] Work Phone: Comment on above: Method: Oral 07-22-2015 10:20-0400 Body weight 63.05 kg Lovely Andrea [facility] Work Phone: 07-22-2015 10:20-0400 BP Diastolic 76 mm[Hg] Lovely Andrea [facility] Work Phone: Comment on above: Patient Position: Sitting; Cuff Location : Left Arm; Cuff Size: Standard 07-22-2015 10:20-0400 BP Systolic 104 mm[Hg] Lovely Andrea [facility] Work Phone: Comment on above: Patient Position: Sitting; Cuff Location : Left Arm; Cuff Size: Standard 07-22-2015 10:20-0400 BSA (Body Surface Area) 1.68 m2 Lovely Goodwintavon [facility] Work Phone: 07-22-2015 10:20-0400 Height 162.56 cm Lovely Andrea [facility] Work Phone: 07-22-2015 10:20-0400 Pulse (Heart Rate) 52 /min Lovely Andrea Comprehensiv e Internal Medicine Work Phone: Comment on above: Pattern: Regular 07-22-2015 10:20-0400 Respiratory Rate 16 /min Lovely Goodwintavon [facility] Work Phone: Comment on above: Pattern: Unlabored 03-25-2014 09:45-0400 BMI (Body Mass Index) 24.18 kg/m2 Lovely Perezdavina [facility]pre[facility] Work Phone: 03-25-2014 09:45-0400 Body Temperature 97.4 [degF] Lovely Perezdavina [facility] Work Phone: 03-25-2014 09:45-0400 Body weight 64.41 kg Lovely Perezdavina [facility] Work Phone: 03-25-2014 09:45-0400 BP Diastolic 72 mm[Hg] Lovely Andrea [facility] Work Phone: Comment on above: Patient Position: Sitting; Cuff Location : Left Arm; Cuff Size: Large 03-25-2014 09:45-0400 BP Systolic 112 mm[Hg] Lovely Andrea [facility] Work Phone: Comment on above: Patient Position: Sitting; Cuff Location : Left Arm; Cuff Size: Large 03-25-2014 09:45-0400 BSA (Body Surface Area) 1.7 m2 Lovely Goodwintavon [facility] Work Phone: 03-25-2014 09:45-0400 Height 163.19 cm Lovely Andrea [facility] Work Phone: 03-25-2014 09:45-0400 Pulse (Heart Rate) 48 /min Lovely Goodwintavon [facility] Work Phone: Comment on above: Pattern: Regular 03-25-2014 09:45-0400 Respiratory Rate 16 /min Lovely Andrea [facility] Work Phone: Comment on above: Pattern: Unlabored 01-24-2013 08:05-0500 Body Temperature 98 [degF] Shannen Bhardwaj RN [facility] Work Phone: 01-24-2013 08:05-0500 Body weight 63.96 kg Shannen Bhardwaj RN [facility] Work Phone: 01-24-2013 08:05-0500 BP Diastolic 84 mm[Hg] Shannen Bhardwaj RN [facility] Work Phone: 01-24-2013 08:05-0500 BP Systolic 122 mm[Hg] Shannen Bhardwaj RN [facility] Work Phone: 01-24-2013 08:05-0500 Pulse (Heart Rate) 64 /min Shannen Bhardwaj RN [facility] Work Phone: Comment on above: Pattern: Regular 01-24-2013 08:05-0500 Respiratory Rate 18 /min Shannen Bhardwaj RN [facility] Work Phone: Comment on above: Pattern: Unlabored 08-25-2010 08:44-0400 Body Temperature 98.2 [degF] KANDACE Sandhu LPN [facility] Work Phone: Comment on above: Method: Oral 08-25-2010 08:44-0400 Body weight 63.96 kg KANDACE Sandhu LPN [facility] Work Phone: 08-25-2010 08:44-0400 BP Diastolic 70 mm[Hg] KANDACE Sandhu LPN [facility] Work Phone: Comment on above: Patient Position: Sitting; Cuff Location : Left Arm; Cuff Size: Standard 08-25-2010 08:44-0400 BP Systolic 118 mm[Hg] KANDACE Sandhu LPN [facility] Work Phone: Comment on above: Patient Position: Sitting; Cuff Location : Left Arm; Cuff Size: Standard 08-25-2010 08:44-0400 Pulse (Heart Rate) 64 /min KANDACE Sandhu LPN [facility] Work Phone: Comment on above: Pattern: Regular 08-25-2010 08:44-0400 Respiratory Rate 18 /min KANDACE Sandhu LPN [facility] Work Phone: Comment on above: Pattern: Unlabored 04-29-2008 13:01-0400 Body weight 0 kg Shannen Bhardwaj RN [facility] Work Phone: 04-29-2008 13:01-0400 BP Diastolic 80 mm[Hg] Shannen Bhardwaj RN [facility] Work Phone: Comment on above: Patient Position: Sitting; Cuff Location : Left Arm; Cuff Size: Standard 04-29-2008 13:01-0400 BP Systolic 124 mm[Hg] Shannen Bhardwaj RN [facility] Work Phone: Comment on above: Patient Position: Sitting; Cuff Location : Left Arm; Cuff Size: Standard 04-29-2008 13:01-0400 Head Circumference 0 cm Dee Alvarez [facility] Work Phone: 04-29-2008 13:01-0400 Head Occipital-frontal circumference 0 cm Shannen Bhardwaj RN [facility]; [facility] Work Phone: 04-29-2008 13:01-0400 Height 0 cm Shannen Bhardwaj RN [facility] Work Phone: 04-29-2008 13:01-0400 Pulse (Heart Rate) 60 /min Shannen Bhardwaj RN [facility] Work Phone: Comment on above: Pattern: Regular 04-29-2008 13:01-0400 Respiratory Rate 16 /min Shannen Bhardwaj RN [facility] Work Phone: Comment on above: Pattern: Unlabored 04-10-2008 08:10-0400 Body Temperature 98.4 [degF] Shannen Bhardwaj RN [facility] Work Phone: Comment on above: Method: Oral 04-10-2008 08:10-0400 Body weight 0 kg Shannen Bhardwaj RN [facility] Work Phone: 04-10-2008 08:10-0400 BP Diastolic 60 mm[Hg] Shannen Bhardwaj RN [facility] Work Phone: Comment on above: Patient Position: Sitting; Cuff Location : Left Arm; Cuff Size: Standard 04-10-2008 08:10-0400 BP Systolic 102 mm[Hg] Shannen Bhardwaj RN [facility] Work Phone: Comment on above: Patient Position: Sitting; Cuff Location : Left Arm; Cuff Size: Standard 04-10-2008 08:10-0400 Head Circumference 0 cm Dee Alvarez [facility] Work Phone: 04-10-2008 08:10-0400 Head Occipital-frontal circumference 0 cm Shannen Bhardwaj RN [facility]; [facility] Work Phone: 04-10-2008 08:10-0400 Height 0 cm Shannen Bhardwaj RN [facility] Work Phone: 04-10-2008 08:10-0400 Pulse (Heart Rate) 64 /min Shannen Bhardwaj RN [facility] Work Phone: Comment on above: Pattern: Regular 04-10-2008 08:10-0400 Respiratory Rate 20 /min Shannen Bhardwaj RN [facility] Work Phone: Comment on above: Pattern: Unlabored 01-23-2008 11:14-0500 Body Temperature 98.2 [degF] KANDACE Sandhu LPN [facility] Work Phone: Comment on above: Method: Oral 01-23-2008 11:14-0500 Body weight 0 kg KANDACE Sandhu LPN [facility] Work Phone: 01-23-2008 11:14-0500 BP Diastolic 80 mm[Hg] KANDACE Sandhu LPN [facility] Work Phone: Comment on above: Patient Position: Sitting; Cuff Location : Left Arm; Cuff Size: Standard 01-23-2008 11:14-0500 BP Systolic 120 mm[Hg] KANDACE Sandhu LPN [facility] Work Phone: Comment on above: Patient Position: Sitting; Cuff Location : Left Arm; Cuff Size: Standard 01-23-2008 11:14-0500 Head Circumference 0 cm Dee Alvarez [facility] Work Phone: 01-23-2008 11:14-0500 Head Occipital-frontal circumference 0 cm KANDACE Sandhu LPN [facility]; [facility] Work Phone: 01-23-2008 11:14-0500 Height 0 cm KANDACE Sandhu LPN [facility] Work Phone: 01-23-2008 11:14-0500 Pulse (Heart Rate) 54 /min KANDACE Sandhu LPN [facility] Work Phone: Comment on above: Pattern: Regular 01-23-2008 11:14-0500 Respiratory Rate 18 /min KANDACE Sandhu LPN [facility] Work Phone: Comment on above: Pattern: Unlabored 08-17-2007 08:06-0400 Body Temperature 97.9 [degF] Dee Alvarez [facility] Work Phone: Comment on above: Method: Oral 08-17-2007 08:06-0400 Body weight 0 kg Dee Alvarez [facility] Work Phone: 08-17-2007 08:06-0400 BP Diastolic 90 mm[Hg] Dee Alvarez [facility] Work Phone: Comment on above: Patient Position: Sitting; Cuff Location : Right Arm; Cuff Size: Standard 08-17-2007 08:06-0400 BP Systolic 130 mm[Hg] Dee Alvarez [facility] Work Phone: Comment on above: Patient Position: Sitting; Cuff Location : Right Arm; Cuff Size: Standard 08-17-2007 08:06-0400 Head Circumference 0 cm Dee Alvarez [facility] Work Phone: 08-17-2007 08:06-0400 Head Occipital-frontal circumference 0 cm Dee Alvarez DO Work Phone: [facility]; [facility] Work Phone: 08-17-2007 08:06-0400 Height 0 cm Dee Alvarez [facility] Work Phone: 08-17-2007 08:06-0400 Pulse (Heart Rate) 72 /min Dee Alvarez [facility] Work Phone: Comment on above: Pattern: Regular 08-17-2007 08:06-0400 Respiratory Rate 16 /min Dee Alvarez [facility] Work Phone: Comment on above: Pattern: Unlabored 09-01-2006 15:38-0400 Body Temperature 98.2 [degF] Dee Alvarez [facility] Work Phone: Comment on above: Method: Undefined 09-01-2006 15:38-0400 Body weight 0 kg Dee Alvarez [facility] Work Phone: 09-01-2006 15:38-0400 BP Diastolic 74 mm[Hg] Dee Alvarez [facility] Work Phone: Comment on above: Patient Position: Sitting; Cuff Location : Left Arm; Cuff Size: Standard 09-01-2006 15:38-0400 BP Systolic 122 mm[Hg] Dee Alvarez [facility] Work Phone: Comment on above: Patient Position: Sitting; Cuff Location : Left Arm; Cuff Size: Standard 09-01-2006 15:38-0400 Head Circumference 0 cm Dee Alvarez [facility] Work Phone: 09-01-2006 15:38-0400 Head Occipital-frontal circumference 0 cm Dee Alvarez DO Work Phone: [facility]; [facility] Work Phone: 09-01-2006 15:38-0400 Height 0 cm Dee Alvarez [facility] Work Phone: 09-01-2006 15:38-0400 Pulse (Heart Rate) 68 /min Dee Alvarez [facility] Work Phone: Comment on above: Pattern: Regular 09-01-2006 15:38-0400 Respiratory Rate 16 /min Dee Alvarez [facility] Work Phone: Comment on above: Pattern: Unlabored Encounters Encounter Date Encounter Type Care Provider Facility Start: 07-31-2024 End: 07-31-2024 Refill Ozzie Robertson MD Work Phone: [facility] Comment on above: Refill Request Start: 05-04-2024 End: 05-04-2024 ambulatory OZZIE ROBERTSON JR Facility:[facility] Start: 05-04-2024 End: 05-04-2024 Patient encounter procedure Ozzie Robertson MD Work Phone: Neurology Comment on above: Cognitive decline (P rimary Dx); Memory loss Start: 04-06-2024 Refill Ozzie patterson MD Work Phone: Neurology Comment on above: Refill Request Start: 01-31-2024 Telephone encounter Ozzie Robertson MD Work Phone: Neurology Comment on above: Patient Question Start: 12-30-2023 End: 12-30-2023 ambulatory OZZIE ROBERTSON JR Facility:[facility] Start: 12-30-2023 End: 12-30-2023 Patient encounter procedure Ozzie Robertson MD Work Phone: Neurology Comment on above: Cognitive decline (P rimary Dx); Memory loss Start: 11-14-2023 Telephone encounter Danni decker PA-C Work Phone: Neurology Start: 11-10-2023 Telephone encounter Danni decker PA-C Work Phone: Neurology Comment on above: Patient Update; Fátima ent Question Start: 10-11-2023 End: 10-11-2023 ambulatory RAJAT A FAST Facility:[facility] Start: 10-11-2023 Telephone encounter Danni decker PA-C Work Phone: [facility] Comment on above: prior authorization Start: 10-04-2023 Telephone encounter Ozzie Robertson MD Work Phone: [facility] Comment on above: Results Start: 10-04-2023 End: 10-04-2023 [facility] Start: 10-04-2023 End: 10-04-2023 Subsequent hospital visit by physician [employer] [facility] (I-Stat/1.5t) Work Phone: Radiology Comment on above: Memory loss [R41.3] Start: 2023 End: 2023 ambulatory [facility] Facility:[facility] Start: 2023 End: 2023 ambulatory [facility] Facility:[facility] Start: 2023 End: 2023 Patient encounter procedure Ozzie Robertson MD Work Phone: Neurology Comment on above: Memory loss (Primary Dx); Cognitive decline Start: 07-13-2023 End: 07-13-2023 Phone Encounter Rajat Fast DO Work Phone: [facility] Start: 07-12-2023 End: 07-17-2023 Office outpatient visit 15 minutes Rajat Fast DO Work Phone: [facility] Start: 07-12-2023 Review Rajat Fast DO Work Phone: [facility] Start: 06-08-2023 Telephone encounter Neurology Provid er Neurology Comment on above: Appointment Start: 01-11-2023 ambulatory Rajat A Fast DO Compreh ensive Internal Med Start: 01-11-2023 End: 01-11-2023 Office outpatient visit 25 minutes Rajat Fast DO Work Phone: [facility] Start: 12-21-2022 End: 12-21-2022 Phone Encounter Rajat Fast DO Work Phone: [facility] Start: 07-09-2022 End: 07-09-2022 Office outpatient visit 5 minutes Rajat Fast DO Work Phone: [facility] Start: 04-28-2022 End: 05-03-2022 Office outpatient visit 15 minutes Rajat Fast DO Work Phone: [facility] Start: 04-28-2022 Review Rajat Fast DO Work Phone: [facility] Start: 04-19-2022 End: 04-19-2022 Office outpatient visit 5 minutes Rajat Fast DO Work Phone: [facility] Start: 12-29-2021 End: 12-31-2021 Office outpatient visit 25 minutes Rajat Fast DO Work Phone: [facility] Start: 12-29-2021 Review Rajat Fast DO Work Phone: [facility] Start: 12-17-2021 End: 12-17-2021 Lab Order Rajat Fast DO Work Phone: [facility] Start: 12-10-2021 End: 12-10-2021 Phone Encounter Rajat Fast DO Work Phone: [facility] Start: 12-07-2021 End: 12-07-2021 Phone Encounter Rajat Fast DO Work Phone: [facility] Start: 08-26-2021 End: 08-26-2021 Office outpatient visit 5 minutes Rajat Fast DO Work Phone: [facility] Start: 08-25-2021 End: 08-25-2021 Phone Encounter Rajat Fast DO Work Phone: [facility] Start: 08-24-2021 End: 08-24-2021 Phone Encounter Rajat Fast DO Work Phone: [facility] Start: 07-24-2021 End: 07-24-2021 Office outpatient visit 5 minutes Rajat Fast DO Work Phone: [facility] Start: 07-14-2021 End: 07-09-2022 Office outpatient visit 5 minutes Rajat Fast DO Work Phone: [facility] Start: 07-14-2021 Review Rajat Fast DO Work Phone: [facility] Start: 06-23-2021 End: 06-23-2021 Lab Order Rajat Fast DO Work Phone: [facility] Start: 06-12-2021 End: 06-12-2021 Patient encounter procedure Rajat Fast DO Work Phone: [facility] Start: 06-09-2021 End: 06-11-2021 Office outpatient visit 25 minutes Rajat Fast DO Work Phone: [facility] Start: 06-09-2021 Review Rajat Fast DO Work Phone: [facility] Start: 05-07-2021 Review Dee jefferson DO Work Phone: [facility] Start: 04-15-2021 End: 04-15-2021 Phone Encounter Dee Alvarez DO Work Phone: [facility] Start: 01-30-2021 End: 01-30-2021 Annotation/Addendum Dee Alvarez [facility] Start: 12-08-2020 End: 12-08-2020 Office outpatient visit 10 minutes Dee Alvarez [facility] Start: 08-20-2020 End: 08-20-2020 Office outpatient visit 15 minutes Dee Alvarez [facility] Start: 08-01-2020 End: 08-01-2020 Annotation/Addendum Dee Alvarez [facility] Start: 07-25-2020 End: 07-25-2020 Annotation/Addendum Dee Alvarez [facility] Start: 04-04-2020 End: 04-04-2020 Patient encounter status Rajat Fast DO Work Phone: [facility] Start: 04-04-2020 End: 04-04-2020 Periodic preventive med est patient 65yrs& older Dee Alvarez [facility] Start: 08-12-2017 End: 08-12-2017 Lab Order Dee Alvarez [facility] Start: 08-10-2016 End: 08-10-2016 Periodic preventive med est patient 40-64yrs Dee Alvarez [facility] Start: 09-01-2015 End: 09-01-2015 Phone Encounter Dee Alvarez [facility] Start: 09-01-2015 End: 09-01-2015 Physical examination Rajat Fast DO Work Phone: [facility] Start: 08-07-2015 End: 08-07-2015 Office outpatient visit 15 minutes Dee Alvarez [facility] Start: 07-22-2015 End: 07-22-2015 Office outpatient visit 25 minutes Dee Alvarez [facility] Start: 07-22-2015 End: 07-22-2015 Physical examination Rajat Fast DO Work Phone: [facility] Start: 03-25-2014 End: 03-25-2014 Patient encounter procedure Dee Alvarez [facility] Start: 03-25-2014 End: 03-25-2014 Physical examination Rajat Fast DO Work Phone: [facility] Start: 01-24-2013 End: 01-24-2013 Patient encounter procedure Dee Alvarez [facility] Start: 08-25-2010 End: 08-25-2010 Patient encounter procedure Dee Alvarez [facility] Start: 08-25-2010 End: 08-25-2010 Physical examination Rajat Fast DO Work Phone: [facility] Start: 02-18-2010 End: 02-18-2010 Patient encounter procedure Dee Alvarez [facility] Start: 04-29-2008 End: 04-29-2008 Patient encounter procedure Dee Alvarez [facility] Start: 04-11-2008 End: 04-11-2008 Historical Summary Dee Alvarez [facility] Start: 04-10-2008 End: 04-10-2008 Office outpatient visit 25 minutes Dee Alvarez [facility] Start: 01-23-2008 End: 01-23-2008 Patient encounter procedure Dee Alvarez [facility] Start: 08-17-2007 End: 08-17-2007 Patient encounter procedure Dee Alvarez [facility] Start: 09-01-2006 End: 09-01-2006 Patient encounter procedure Dee Alvarez [facility] Patient encounter status [facility]; [facility] Work Phone: Patient encounter status Tonie Langford [facility]; [facility] Work Phone: Patient encounter status Tonie Langford [facility]; [facility] Work Phone: Patient encounter status Tonie Langford [facility]; [facility] Work Phone: Patient encounter status Raheem Milesdarrin [place] [facility]; [facility] Work Phone: Patient encounter status Tonie Langford [facility]; [facility] Work Phone: Patient encounter status Tonie Langford [facility]; [facility] Work Phone: Physical examination [facility] Com prehensive Internal Medicine; [facility] Work Phone: Physical examination Tonie Langford [facility]; [facility] Work Phone: Physical examination Tonie Langford [facility]; [facility] Work Phone: Physical examination Tonie Langford [facility]; [facility] Work Phone: Physical examination Fritzleobardojohn Gina [facility] omprehensive Internal Medicine; [facility] Work Phone: Physical examination Tonie Langford [facility]; [facility] Work Phone: Physical examination Tonie Langford [facility]; [facility] Work Phone: Procedures Date Procedure Procedure Detail Performing Clinician Start: 10-04-2023 3d rendering w/interp&postproc diff work station Ozzie Robertson MD Work Phone: Start: 10-04-2023 Mri brain brain stem w/o contrast material Ozzie Robertson MD Work Phone: Start: 07-12-2023 End: 07-13-2023 Shoulder min 2 Views Procedure Note: See Note; NOTES: [facility] Imaging Services [address] [place] [address] Shoulder min 2 Views MR#: [id number] Acct: [id number] Name: ERIN DYSON Rep #: [id number] : 1955 F 67 From: Won Daniels PCP: Dr. Rajat Cummins DO Status: REG CLI Study: Shoulder min 2 Views Date of Exam: 07/12/23 Exam# [id number] Ordering Dr: Rajat Cummins DO EXAM: XR [...] EDT , CC: Dr. Rajat Cummins DO Health Plan Specialist: Signed Rajat Cummins DO Work Phone: Start: 07-05-2023 End: 07-05-2023 PT D/C Summary (1) Procedure Note: See Note; NOTES: [facility] Physical Therapy [address] [place] [address] / REHABILITATION SERVICES DISCHARGE SUMMARY MR#: [id number] Acct: [id number] Name: ERIN DYSON Rep #: [id number] : 1955 67 From: Karime SÁNCHEZ Referring DrChau: Yamilex Arnold DO Status: REG RCR Insurance: [facility] [employer]/[facility] [employer]URANCE Discharge Summary D/C [...] pain Goal Progress: Not Progressing Plan Plan: DC PT back to . Pt will call again today D/C Information Discharge Comments: DC PT back to d/c sentence: If there are questions or concerns regarding this patient's physical therapy, please feel free to call me at [phone]. Thank you for the referral of this patient. Sincerely, GONZALO Farrell Balance/Gait/Functional tests Balance/Special Test Scores Quick DASH Score: [phone] <Electronically signed by Karime Ariza MPT> 07/05/23 0755 CC: Dr. Rajat Cummins DO; Yamilex Arnold DO Signed Rajat Cummins DO Work Phone: Start: 06-30-2023 End: 06-30-2023 Re-Evaluation - PT (1) Procedure Note: See Note; NOTES: [facility] Therapy [facility] [address] [place] [address]. [address] [place] [address] / REEVALUATION / MEDICARE RECERTIFICATION PHYSICAL THERAPY MR#: [id number] Acct: [id number] Name: ERIN DYSON Rep #: [id number] : 1955 67 From: Fermin Lynch DPT Referring Dr.: Yamilex Arnold DO Status:REG RCR Insurance: [employer] [employer] INSURANCE Re-Evaluation Intro: Yamilex [...] to perform ADL's, To increase tolerance to activity/condition/positio n, To improve performance and independence with ADL's, To decrease level of supervision to perform tasks, To improve ability of physical actions for home/community/work/leisur e, To improve health of tissue, To decrease [...] to perform ADL's, To increase tolerance to activity/condition/positio n, To improve performance and independence with ADL's, To improve ability of physical actions for home/community/work/leisur e, To improve health of tissue, To decrease [...] to perform ADL's, To increase tolerance to activity/condition/positio n, To improve performance and independence with ADL's, To improve ability of physical actions for home/community/work/leisur e, To improve health of tissue, To decrease soft tissue restriction and To increase flexibility/ROM Re-Evaluation Ending Re-evaluation ending: Please do not hesitate to contact me at [phone] by phone or if you have questions or concerns regarding this new plan of care! Sincerely, Fermin Lynch DPT <Electronically signed by Fermin Lynch DPT> 06/30/23 0836 CC: Dr. Rajat Cummins DO; Yamilex Arnold DO CLS Signed For Medicare only, by signing this I certify the plan of care. __ Physicians Signature Date Rajat Fast DO Work Phone: Start: 06-08-2023 End: 06-08-2023 Inital Evaluation (1) - PT Procedure Note: See Note; NOTES: [facility] Physical Therapy [facility] [address] [place] [address] / REHABILITATION SERVICES INITIAL EVALUATION MR#: [id number] Acct: [id number] Name: ERIN DYSON Rep #: [id number] : 1955 67 From: Karime SÁNCHEZ Referring Dr.: Yamilex Arnold DO Status: REG RCR Insurance: [employer] SELF PAY INSURANCE Patient's Visit Information [...] to perform ADL's, To increase tolerance to activity/condition/positio n, To improve performance and independence with ADL's, To decrease level of supervision to perform tasks, To improve ability of physical actions for home/community/work/leisur e, To improve health of tissue, To decrease [...] to perform ADL's, To increase tolerance to activity/condition/positio n, To improve performance and independence with ADL's, To improve ability of physical actions for home/community/work/leisur e, To improve health of tissue, To decrease [...] to perform ADL's, To increase tolerance to activity/condition/positio n, To improve performance and independence with ADL's, To improve ability of physical actions for home/community/work/leisur e, To improve health of tissue, To decrease soft tissue restriction and To increase flexibility/ROM Text: Thank you for the opportunity to evaluate your patient. For Medicare and Medicare HMO plans, please review the plan of care and approve it. It will need to be FAXED BACK to us at [phone] for Medicare purposes. For Medicare only, by signing this I certify the plan of care. Please let me know if there are questions or concerns regarding this plan of care. Physician Signature: Date: <Electronically signed by Karime Ariza MPT> 06/08/23 4189 CC: Dr. Rajat Cummins DO; Yamilex Arnold DO Signed Rajat Cummins DO Work Phone: Start: 04-20-2023 End: 04-27-2023 Dexa Bone Density Study Procedure Note: See Note; NOTES: [facility] Imaging Services [address] [place] [address] Dexa Bone Density Study MR#: [id number] Acct: [id number] Name: ERIN DYSON PAOLLO Rep #: [id number] : 1955 F 67 From: Rafal rosas MD PCP: Dr. Rajat Cummins DO Status: [facility] Study: Dexa Bone Density Study Date of Exam: 04/20/23 Exam# [id number] Ordering Dr: Rajat Cummins DO STUDY: DUAL [...] EDT , CC: Dr. Rajat Cummins DO Health Plan Specialist: Signed Rajat Cummins DO Work Phone: Start: 04-20-2023 End: 04-21-2023 SCREENING MAMM (CAD), BILAT Procedure Note: See Note; NOTES: [facility] Imaging Services [address] [place] [address] SCREENING MAMM (CAD), BILAT MR#: [id number] Acct: [id number] Name: ERIN DYSON APOLLO Rep #: [id number] : 1955 F 67 From: Servando Thomason DO PCP: Dr. Rajat Cummins DO Status: REG CLI Study: SCREENING MAMM (CAD), BILAT Date of Exam: 03/29 03/20 Exam# [id number] Ordering Dr: Rajat Cummins DO MAMMOGRAPHY - [...] Signed: Servando Thomason DO at 11:30 EDT Reading Location ID and State: [facility] / MD Tel , Service support , CC: Dr. Rajat Cummins DO Health Plan Specialist: Signed Rajat Cummins DO Work Phone: Start: 03-11-2023 End: 03-11-2023 Chest PA and Lateral Procedure Note: See Note; NOTES: [facility] Imaging Services [address] [place] [address] Chest PA and Lateral MR#: [id number] Acct: [id number] Name: ERIN DYSON APOLLO Rep #: [id number] : 1955 F 67 From: Mary jefferson MD PCP: Dr. Rajat Cummins DO Status: REG CLI Study: Chest PA and Lateral Date of Exam: 03/11/23 Exam# [id number] Ordering Dr: Agustin Mooney PA PA HISTORY: Persistent cough. TECHNIQUE: XR Chest 2 Views. COMPARISON: 04/24/2021. FINDINGS: CARDIOMEDIASTINAL BORDERS: Cardiac silhouette within normal limits in size. Mediastinal contour unremarkable with calcification of the aortic knob. LUNGS: Radiographically clear. PLEURA: No pleural effusion or pneumothorax seen. OSSEOUS STRUCTURES: Unremarkable. RAD/Chest PA and Lateral IMPRESSION: No acute cardiopulmonary process identified. Electronically Signed: Mary Dia MD at 9:18 EDT , CC: ANDRÉS Mooney; Dr. Rajat Cummins DO Health Plan Specialist: Signed Rajat Cummins DO Work Phone: Start: 03-11-2023 End: 03-11-2023 Urgent Care Visit Report Procedure Note: See Note; NOTES: [facility] [address] [place] [address] [address] [place] [address] OFFICE VISIT Date of Service: 03/11/23 MR#: [id number] Acct: [id number] Name: ERIN DYSON APOLLO Rep #: [id number] : 1955 Provider: ANDRÉS Mooney Age/Sex: 67/F Location: [facility] Status: Signed Intake Vital Signs 03/11/23 08:50 [...] mg tablets in a dose pack (Medrol (Aiden)) 4 mg PO PER PKG DIR 6 days #21 tabs 03/11/23 [Rx Confirmed 03/11/23] omega 3-mkr-cqh-fish oil 60 mg-90 mg-500 mg capsule (Fish Oil) 1 cap PO DAILY 03/11/23 [History Confirmed 03/11/23] [facility] Medical History Alcohol use Cystocele Gastric reflux [...] at home: Yes additional social history: - Rmun-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[employer] 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 Chief Complaint: Cough Details: ERIN DYSON, [...] PRN 30 caps 0RF cough methylprednisolone (Medrol (Aiden)) 4 mg PO PER PKG DIR 21 [...] Visit Report Procedure Note: See Note; NOTES: [facility] Gastroenterology [address] [place] [address] OFFICE VISIT Date of Service: 02/08/23 MR#: [id number] Acct: [id number] Name: ERIN DYSON APOLLO Rep #: [id number] : 1955 Provider: Dickson Oro DO Age/Sex: 67/F Location[place] [facility] Status: Signed Intake Intake Visit Reasons: HEMORRHOID BANDING Allergies No Known Allergies Allergy (Verified 12/28/22 15:09) [facility] Medical History (Updated 02/08/23 @ 11:11 by [...] at home: Yes additional social history: - Tnxg-Jhcn-klejpdvu 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 Hemorrhoids causing difficulty with cleanliness following defecation. Recommendation made for surgical hemorrhoidectomy to treat prolapsing internal hemorrhoids and lax external skin. Surgical option not pursued. ? Colonoscopy 8.. non-thrombosed internal hemorrhoids with prolapse requiring manual replacement into anal canal; diverticulosis. No specimens collected. *BGI established 02.08.23 She does have issue with hemorrhoids that [...] bleeding noted. Follow up instruction provided. LOT [id number] Alert Processes Chemical Design Engineer Alert Billing: Yes Hemorrhoid 81433 Banding Quality Reporting Tobacco Screening ([facility] 138) Smoking Status: Never smoker Assessment [...] Hemorrhoid K64.9 CPT Codes Hemorrhoid - Hemorrhoid: 31223 Banding (64107) 02/08/23 1717 <Electronically signed by Dickson Friend DO> Date Dickson Oro DO Cosigner Signature: Date (if applicable) CC: Rajat Fast DO Work Phone: Start: 04-19-2022 End: 04-19-2022 Office Visit Report Comments: See Note; NOTES: [facility] [address] [place] [address] [place] [address] OFFICE VISIT Date of Service: 04/19/22 MR#: [id number] Acct: [id number] Patient: ERIN DYSON Rep #: [id number] : 1955 Provider: ANDRÉS Mooney Age/Sex: 66/F Location: [facility] Status: Signed Intake Intake Visit Reasons: PCR [...] <Electronically signed by Agustin BOWEN> Date Agustin Anaya Signature: Date (if applicable) CC: Rajat Fast DO Work Phone: Start: 04-19-2022 End: 04-19-2022 Urgent Care Visit Report Comments: See Note; NOTES: [facility] [address] [place] [address] [address] [place] [address] OFFICE VISIT Date of Service: 04/19/22 MR#: [id number] Acct: [id number] Name: ERIN DYSON APOLLO Rep #: [id number] : 1955 Provider: ANDRÉS Mooney Age/Sex: 66/F Location: [facility] Status: Signed Intake Vital Signs 04/19/22 07:27 [...] Known Allergies Allergy (Verified 07/24/21 05:48) [facility] Medical History (Updated 04/19/22 @ 08:00 by Agustin BOWEN, ANDRÉS) Alcohol use Cystocele Gastric reflux Hemorrhoid History of echocardiogram History of stress test Non-smoker Post-menopausal Wears glasses Surgical History bilateral sacrospinous ligament fixation H/O bilateral salpingo-oophorectomy H/O cystoscopy H/O total vaginal hysterectomy History of colonoscopy ( 2017) History of Mohs micrographic surgery for skin [...] at home: Yes additional social history: - Qngm-Dohd-ovjmizgp 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 Rajat Cummins, Status: [facility] Study: SCRN MAMM (CAD)W/ARTI BILAT Date of Exam: 03/28 Exam# [id number] Ordering Dr: Rajat Cummins DO MAMMOGRAPHY - [...] delay biopsy of a clinically suspicious abnormality. [id number] Electronically Signed: Rafal Dos Santos MD at 13:38 EDT , CC: Dr. Rajat Cummins DO Health Plan Specialist: Signed Rajat Cummins DO Work Phone: Start: 07-24-2021 End: 07-24-2021 Colonoscopy Report Comments: See Note; NOTES: [facility] Medical Records Department [address] [place] [address] Colonoscopy Report MR#: [id number] Acct: [id number] Name: ERIN DYSON APOLLO Rep #: [id number] : 1955 65 From: Russell Najera MD PCP: Dr. Rajat Cummins, DO Status:[facility] Patient Name: Erin Dyson Procedure Date: 07/24/2021 [...] surgical removal. Procedure Code(s): --- Professional --- 33076, Colonoscopy, flexible; diagnostic, including collection of specimen(s) by brushing or washing, when performed (separate procedure) 64281, 59, Moderate sedation services provided by the same physician or other qualified health acute care assistant performing the diagnostic or therapeutic service that [...] or abscess without bleeding CPT copyright 2017 [employer]. All rights reserved. The codes documented in this report are preliminary and upon professional model review may be revised to meet current compliance requirements. Russell Najera MD 07/24/2021 6:52:10 AM This report has been signed electronically. Number of Addenda: 0 Note Initiated On: 07/24/2021 6:12 AM 07/24/21651 Date Russell Najera MD Cosigner Signature: Date (if indicated) CC: Dr. Rajat Cummins DO; Dr. Russell Najera MD Date Dictated: 07/24/21611 Date Transcribed: Health Plan Specialist: TAWNYA Signed Rajat Cummins DO Work Phone: Start: 07-24-2021 End: 07-24-2021 History and Physical Exam Comments: See Note; NOTES: [facility] Medical Records Department [address] [place] [address] History Physical Exam 07/24/21621 MR#: [id number] Acct: [id number] Name: ERIN DYSON APOLLO Rep #: [id number] : 1955 65 From: Russell Najera MD PCP: Dr. 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 Rajat Cummins DO Status: R EG CLI Referring : Rajat Cummins DO Sex: F C Stress [...] of 75%. This note was generated with [employer] software. It may contain incorrect words, spelling, and punctuation that were not noted in checking the note before signing. 06/30/21 1320 <Electronically signed by Chad Baker MD> Date Chad Baker MD CC: Dr. Rajat Cummins, Date Dictated: 06/30/21 1316 Date Transcribed: 06/30/211315 Health Plan Specialist: PM Signed Rajat Cummins DO Work Phone: Start: 06-30-2021 End: 06-30-2021 Echo Complete Comments: See Note; NOTES: [facility] Cardiovascular Services [address] [place] [address] Echo Complete 06/30/21817 MR#: [id number] Acct: [id number] Name: ERIN DYSON APOLLO Rep #: [id number] : 1955 65 From: Chad Baker MD Attending Dr: Dr. Rajat Cummins, DO Status: REG CL I Ordering Dr: Rajat Cummins DO Date: 06/30/21 Location: [facility] Sex: F C Admitted: Reason For Study: [...] cm RVDd: 4.0 cm FS: 28.8 % ___ LAV(MOD-bp): 57.2 ml LVAd ap4: 25.7 cm2 SV(MOD-sp4): 46.6 ml LAV(MOD-bp) Indexed: 34.0 ml/m2 LVLd ap4: 6.7 cm LAV(MOD-sp2): 56.3 ml EDV(MOD-sp4): 79.8 ml LAV(MOD-sp4): 56.7 ml EDV(sp4-el): 84.1 ml LVAs ap4: 15.2 cm2 LVLs ap4: 5.9 cm ESV(MOD-sp4): 33.2 ml ESV(sp4-el): 33.4 ml EF(MOD-sp4): 58.4 % EF(sp4-el): 60.3 % ___ SV(sp4-el): 50.7 ml LA A4 area: 19.2 cm2 RA A4 area: 22.4 cm2 Time Measurements MV dec time: 0.20 sec Doppler Measurements Calculations MV E max ning: 76.0 cm/sec Lat Peak E' Ning: 9.2 cm/sec Med Peak E' Ning: 8.6 cm/sec MV A max ning: 85.2 cm/sec E/E' lat: 8.2 E/E' med: 8.9 MV E/A: 0.89 ___ MV V2 max: 92.7 cm/sec MV P1/2t max ning: 83.6 cm/sec Ao V2 max: 138.0 cm/sec MV max P.4 mmHg MV P1/2t: 65.1 msec Ao max P.6 mmHg MV V2 mean: 45.0 cm/sec MV mean P.0 mmHg MV dec slope: 376.1 cm/sec2 MV V2 VTI: 29.1 cm MVA(P1/2t): 3.4 cm2 ___ LV V1 max: 121.3 cm/sec PA V2 [...] Cummins DO Date Dictated: 06/30/21817 Date Transcribed: 06/30/21 1507 Health Plan Specialist: Signed Rajat Cummins DO Work Phone: Start: 04-24-2021 End: 04-24-2021 Emergency Department Summary Comments: See Note; NOTES: [facility] Medical Records Department [address] [place] [address] Emergency Department Summary 04/24/21 MR#: [id number] Acct: [id number] Name: ERIN DYSON Rep #: [id number] : 1955 65 From: Federico Issa MD PCP: Dr. 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 Call [facility] ([phone]) or report to the closest Emergency Room. Call 911 if necessary. 04/24/21 3251 <Electronically signed by Federico Issa MD> Cosigner Signature (if applicable): CC: Dr. Dee Alvarez DO Signed Dee Alvarez DO Work Phone: Start: 04-24-2021 End: 04-28-2021 12 Lead EKG Comments: See Note; NOTES: [facility] Cardiovascular Services [address] [place] [address] 12 Lead EKG 04/24/21 1026 MR#: [id number] Acct: [id number] Name: ERIN DYSON Rep #: [id number] : 1955 65 From: Phillip Borrego MD [...] Normal sinus rhythm Normal ECG Confirmed by PHILLIP BORREGO MD ([id number]), newspaper editor LATASHA BRITTON ([id number]) on 04/28/2021 1:44:13 PM Referred By: GRZEGORZ Confirmed By:PHILLIP BORREGO MD 04/28/21 5484 Date Phillip Borrego MD CC: Dr. Federico Issa MD; Dr. Dee Alvarez DO Signed Dee Alvarez DO Work Phone: Start: 04-24-2021 End: 04-24-2021 Chest 1 View (Portable) Comments: See Note; NOTES: [facility] Imaging Services [address] [place] [address] Chest 1 View (Portable) MR#: [id number] Acct: [id number] Name: ERIN DYSON Rep #: [id number] : 1955 F 65 From: Orestes jefferson DO PCP: Dr. Dee Alvarez DO Status: [facility] ER Study: Chest 1 View (Portable) Date of Exam: 04/24/21 Exam# [id number] Ordering Dr: Federico Issa MD STUDY: X-RAY [...] Federico Issa MD; Dr. Dee Alvarez DO Health Plan Specialist: Signed Dee Alvarez DO Work Phone: Start: 02-24-2021 End: 02-24-2021 SCRN MAMM (CAD)W/ARTI BILAT Comments: See Note; NOTES: [facility] Imaging Services [address] [place] [address] SCRN MAMM (CAD)W/ARTI BILAT MR#: [id number] Acct: [id number] Name: ERIN DYSON Rep #: [id number] : 1955 F 65 From: Rafal rosas MD PCP: Dr. Dee Alvarez DO Status: REG CL Study: SCRN MAMM (CAD)W/ARTI BILAT Date of Exam: 01/28 Exam# [id number] Ordering Dr: Dee Alvarez DO MAMMOGRAPHY - [...] delay biopsy of a clinically suspicious abnormality. [id number] Electronically Signed: Rafal Dos Santos MD at 8:39 EDT , Service support , CC: Dr. Dee Alvarez DO Health Plan Specialist: Signed Dee Alvarez DO Work Phone: Start: 12-13-2020 End: 12-13-2020 Office Visit Report Comments: See Note; NOTES: [facility] [address] [place] [address] OFFICE VISIT Date of Service: 12/13/20 MR#: [id number] Acct: [id number] Patient: ERIN DYSON Rep #: [id number] : 1955 Provider: KATHLEEN jimenez Age/Sex: 65/F Location: [facility] Status: Signed Intake Vital Signs 12/13/20 BP 112/68 12/13/20 Blood Pressure Location Lt brachial 12/13/20 Position Sitting 12/13/20 Respiration 14 12/13/20 Pulse 75 12/13/20 Pulse Source Monitor 12/13/20 Temp 97.0 F L 12/13/20 Temp Source Temporal 12/13/20 Pulse Oximetry (%) 99 12/13/20 Oxygen Delivery Method room air Intake Visit [...] Days #84 tab 12/13/20 [Rx Confirmed 12/13/20] PFSH Medical History Hemorrhoid (Chronic) Cystocele (Chronic) Surgical History (Updated 12/13/20 @ 13:54 by Lisha Guy) H/O bilateral salpingo-oophorectomy (Acute) H/O cystoscopy (Acute) H/O total vaginal hysterectomy (Acute) History of Mohs micrographic surgery for skin cancer (Acute) History of colonoscopy (Acute 2018) bilateral sacrospinous ligament fixation (Acute) S/P bunionectomy (Resolved) stereotactic biopsy (Resolved) Family History Grandmother Breast cancer Mother Hypertension COPD (chronic obstructive pulmonary disease) Social History (Updated 12/13/20 @ 14:11 by Haydee Kilgore CARDIOVASCULAR LAB DIRECTOR, CARDIOVASCULAR LAB DIRECTOR-C) Smoking Status: Never smoker alcohol intake: current alcohol intake frequency: a few times a week Alcohol type: wine details: 2-3 glasses per week substance use type: does not use caffeine: Yes what type of physical activity do you participate in: walking, weight training frequency: 5-6 times per week seatbelt use: always do you feel safe at home: Yes additional social history: - Ciwm-Vgro-regggdhe 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 She reports she took the nail israeli off of her toenails last night and [...] B35.1 12/13/20 1411 <Electronically signed by Haydee ELAINE C> Date Haydee WANG Cosigner Signature: Date (if applicable) CC: Dee Alvarez Start: 09-23-2020 End: 09-23-2020 Implementation Manager Office Visit Report Comments: See Note; NOTES: [facility] [address] [place] [address] OFFICE VISIT Date of Service: 09/23/20 MR#: [id number] Acct: [id number] Name: ERIN DYSON APOLLO Rep #: [id number] : 1955 Provider: Dr. Patricia balderrama MD Age/Sex: 65/F Location: [facility] [place] Status: Signed Intake Vital Signs 09/23/20 Height 5 ft 5 in 09/23/20 Weight: 144 lb 09/23/20 BMI 23.9 09/23/20 BP 112/80 Intake Visit Reasons: 2 week post op Chief Complaint: 2w post op Wellness Program Manager Required: No Is patient in pain?: No Allergies No Known Allergies Allergy (Verified 09/23/20 15:30) Medications cholecalciferol (vitamin D3) 50 mcg (2,000 unit) capsule 2,000 unit PO QDAY 03/07/18 [History Confirmed 09/23/20] Calcium Carbonate [Elemental Calcium] 600 mg PO DAILY 09/02/20 [History Confirmed 09/23/20] Is last menstrual period known: No Post menopausal: Yes Patient : No : No [facility] Medical History Hemorrhoid (Chronic) Cystocele (Chronic) Surgical [...] at home: Yes additional social history: - Lwth-Gimi-jtuldsjp 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[employer] 2 week post op: Details: ERIN DYSON [...] cystocele plan tvh bso combo case with enriqueta Plan postop fu Coding Level of Care Code No Charge Diagnoses Uterovaginal prolapse N81.4 Midline cystocele 09/23/20 1542 <Electronically signed by Patricia Blackman MD> Date Patricia Blackman MD [facility] Signature: Date (if applicable) CC: Dee Alvarez Start: 09-10-2020 End: 09-10-2020 Progress Note - OBGYN Comments: See Note; NOTES: [facility] Medical Records Department [address] [place] [address] Progress Note - OBGYN 09/10/20 0726 MR#: [id number] Acct: [id number] Name: ERIN DYSON APOLLO Rep #: [id number] : 1955 65 From: Patricia Blackman MD PCP: Dr. Dee Alvarez, DO Status:REG SDC Y Location: [place] [address] Patient Problems: Active and Suspected Problems (Last [...] 94.2 H, Lymph % (Auto) 3.0 L, [place] % (Auto) 2.2, Eos % (Auto) 0.0, [...] 500 Mg Tablet) 1,000 mg PO Q6H [facility] Last Admin: 09/10/20 06:43 Dose: 1,000 mg Documented by: Cephalexin (Cephalexin 500 Mg Capsule) 500 mg PO Q12 [facility] Last Admin: 09/09/20 22:12 Dose: 500 mg Documented by: Docusate Sodium (Docusate Sodium 100 Mg Capsule) 100 mg PO BID [facility] Last Admin: 09/09/20 22:12 Dose: 100 mg Documented by: Enoxaparin Sodium (Enoxaparin 40 Mg/0.4 Ml Syringe) 40 mg SC DAILY [facility] Sodium Chloride () 250 mls @ 15 mls/hr IV .[id number] PRN PRN Reason: Saline Flush Sodium Chloride () 250 mls @ 15 mls/hr IV .[id number] PRN PRN Reason: Additional IVPB Infusion Lactated Ringer's () 1,000 mls @ 70 mls/hr IV .[id number] [facility] Stop: 09/10/20 12:30 Last Infusion: 09/10/20 05:22 Dose: Infused Documented by: Ketorolac Tromethamine (Ketorolac 30 Mg/Ml Syringe) 30 mg IV Q6H [facility] Stop: 09/10/20 18:31 Last Admin: 09/10/20 06:09 Dose: 30 mg Documented by: Magnesium Chloride (Magnesium Chloride 64 Mg Delay Rel.Tablet) 128 mg PO DAILY PRN PRN PRN Reason: Constipation Nutritional Formula (Lactose Free) (Ensure Enlive 120 Ml Liquid) 120 ml PO TIDCM [facility] Ondansetron HCl (Ondansetron Odt 4 Mg Tablet) [...] Non-smoker Assessment/Plan All Active Problems (Last Reviewed 09/29/20 @ 13:03 by Diana Walden Uterovaginal prolapse (Acute) Staph skin infection (Acute) [...] 09-10-2020 Discharge Instruction Comments: See Note; NOTES: [facility] Medical Records Department [address] [place] [address] Instructions for Home/Discharge Instructions 09/09/20 1636 MR#: [id number] Acct: [id number] Name: ERIN DYSON APOLLO Rep #: [id number] : 1955 65 From: Patricia Blackman MD PCP: Dr. Dee Alvarez, DO [place] [facility] Diet: No Restrictions Discharge Activity: Return [...] Reason: MILD PAIN Transmission Status: Received by [facility] Oxycodone HCl/Acetaminophen [Percocet 5-325] 1 - 2 tab PO Q6H PRN PRN 7 Days #15 tab PRN Reason: Pain Transmission Status: Received by [facility] Primary Care Physician: Dee Alvarez DO [Primary Care Provider] - Test Results: Test results from this visit will be discussed in further detail at your follow-up appointment, if applicable. Please Follow Up With: Patricia Blackman MD - [phone] 09/10/20 0735 <Electronically signed by Patricia Blackman MD> Date Patricia Blackman MD CC: Dr. Nan Robison MD; Dr. Dee Alvarez DO Signed Dee Alvarez Start: 09-09-2020 End: 09-09-2020 Operative Report Comments: See Note; NOTES: [facility] Medical Records Department [address] [place] [address] Operative Report 09/09/20 1044 MR#: [id number] Acct: [id number] Name: ERIN DYSON APOLLO Rep #: [id number] : 1955 65 From: Nan Robison MD PCP: Dr. Dee Alvarez DO Status:[place] [facility] [place] Location: [place] [address] Problem List (1) Cystocele Status: Chronic Qualifiers: Comment: plan [facility] bso combo case with enriqueta (2) Uterovaginal prolapse Status: Acute Report of [...] vaginal cuff, the case was turned to wv. The patient had very thin vaginal mucosa. [...] orifice. On the right side a 5 Tristanian whistle-tip catheter was easily inserted into the [...] 09-09-2020 Operative Report Comments: See Note; NOTES: [facility] Medical Records Department [address] [place] [address] Operative Report 09/09/20 0730 MR#: [id number] Acct: [id number] Name: ERIN DYSON APOLLO Rep #: [id number] : 1955 65 From: Patricia Blackman MD PCP: Dr. Dee Alvarez DO Status:[facility] Y Location[place] [id number] Problem List (1) Cystocele Status: Chronic Qualifiers: Comment: plan [facility] bso combo case with enriqueta (2) Hemorrhoid Status: Chronic Qualifiers: Comment: consult with dr najera for possible removal Report of Operation Date of Procedure: 09/09/20 Pre-Operative Diagnosis: prolapse Post-Operative Diagnosis: same Surgery/Procedure Performed:: tvh bso Description of Surgical Findings:: nl uterus tubes ovaries senior counsel: Beena Corral Type of Anesthesia:: General Special [...] peritoneum and the vagina were closed with [id number]-nr-kcdhr 0 Vicryl pop offs including the posterior and what anterior peritoneum was visible in the reapproximation. Excellent hemostasis was noted. All instruments removed from the vagina clear urine was noted at the end of the procedure and dr robison began her portion of the procedure. Grafts/Implants Used: see enriqueta note Multi Select Codes - Urinary/Genital Urinary/Genital CPT Codes: 91525 TVH+BS/O <250gr uterus 09/09/20 0918 <Electronically signed by Patricia Blackman MD> Date Patricia Blackman MD CC: Dr. Nan Robison MD; Dr. Dee Alvarez, DO; Dr. Patricia Blackman MD Signed Dee Alvarez Start: 09-09-2020 End: 09-10-2020 History and Physical Exam Comments: See Note; NOTES: [facility] Medical Records Department [address] [place] [address] History and Physical 09/09/20 0645 MR#: [id number] Acct: [id number] Name: ERIN DYSON Rep #: [id number] : 1955 65 From: Patricia Blackman MD PCP: Dr. Dee Alvarez, DO Status:REG [place] Y Location: [place] [id number] - Problem List (1) Cystocele Status: Chronic Qualifiers: Comment: plan tvh bso combo case with enriqueta (2) Hemorrhoid Status: Chronic Qualifiers: Comment: consult with dr najera for possible removal History and Physical Date of Admission: 09/09/20 Intake Vital Signs 08/26/20 BMI 21.6 08/26/20 Height 5 ft 5.5 in 08/26/20 Weight: 141 lb 8 oz 08/26/20 BMI 23.1 08/26/20 BP 130/80 H Intake Visit Reasons: pre op Wellness Program Manager Required: No Is patient in pain?: No Allergies No Known Allergies Allergy (Verified 08/26/20 13:03) Medications cholecalciferol (vitamin D3) 50 mcg (2,000 unit) capsule 2,000 unit PO QDAY 03/07/18 [History Confirmed 08/26/20] Is last menstrual period known: No Post menopausal: Yes Patient : No : No [facility] Medical History Hemorrhoid (Chronic) Cystocele (Chronic) [...] at home: Yes additional social history: - Nmmt-Odhi-jddxxvoz 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 Cystocele plan [facility] bso combo case with enriqueta Plan After discussing the patient's diagnosis and [...] 12 Lead EKG Comments: See Note; NOTES: [facility] Cardiovascular Services [address] [place] [address] 12 Lead EKG 09/03/20 0720 MR#: [id number] Acct: [id number] Name: ERIN DYSON Rep #: [id number] : 1955 65 From: Phillip Borrego MD Attending Dr: Dr. Patricia Blackman MD Status: PRE SDC Ordering Dr: Orestes Arroyo MD Date: 09/03/20 [place] [facility] Sex: F C Admitted: Test Reason : PREOP Blood Pressure : / mmHG Vent. Rate : 057 BPM Atrial Rate : 057 BPM P-R Int : 166 ms QRS Dur : 082 ms QT Int : 412 ms P-R-T Axes : 042 049 033 degrees QTc Int : 401 ms Sinus bradycardia Otherwise normal ECG Confirmed by LAUREN SEVERINO, PHILLIP ([id number]), newspaper editor LATASHA BRITTON ([id number]) on 09/04/2020 10:08:46 AM Referred By: Patricia Blackman Confirmed By:PHILLIP BORREGO MD 09/04/20 1008 Date Phillip Borrego MD CC: Dr. Orestes Arroyo MD; Dr. Dee Alvarez DO; Dr. Patricia Blackman MD Signed Dee Alvarez Start: 08-26-2020 End: 08-26-2020 Implementation Manager Office Visit Report Comments: See Note; NOTES: [facility] [address] [place] [address] OFFICE VISIT Date of Service: 08/26/20 MR#: [id number] Acct: [id number] Name: ERIN DYSON Rep #: [id number] : 1955 Provider: Dr. Patricia balderrama MD Age/Sex: 65/F Location: [facility] [place] Status: Signed Intake Vital Signs 08/26/20 BMI 21.6 08/26/20 Height 5 ft 5.5 in 08/26/20 Weight: 141 lb 8 oz 08/26/20 BMI 23.1 08/26/20 BP 130/80 H Intake Visit Reasons: pre op Wellness Program Manager Required: No Is patient in pain?: No Allergies No Known Allergies Allergy (Verified 08/26/20 13:03) Medications cholecalciferol (vitamin D3) 50 mcg (2,000 unit) capsule 2,000 unit PO QDAY 03/07/18 [History Confirmed 08/26/20] Is last menstrual period known: No Post menopausal: Yes Patient : No : No [facility] Medical History Hemorrhoid (Chronic) Cystocele (Chronic) Surgical [...] at home: Yes additional social history: - Otjn-Yqtu-gxbmnsbu 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 Cystocele plan tv bso combo case with enriqueta Salvador After discussing the patient's diagnosis and [...] Signature: Date (if applicable) CC: Dr. Dee Alvarez, DO Dee Alvarez Start: 04-22-2020 End: 04-22-2020 Urgent Care Visit Report Comments: See Note; NOTES: [facility] [address] [place], [place] [address] OFFICE VISIT Date of Service: 04/22/20 MR#: [id number] Acct: [id number] Name: ERIN DYSON Rep #: [id number] : 1955 Provider: Agustin BOWEN Age/Sex: 64/F Location[place] [facility] Status: Signed Intake Vital Signs 04/22/20 BMI 21.6 04/22/20 Height 5 ft 5.5 in 04/22/20 Weight: 143 lb 04/22/20 BMI 23.4 04/22/20 BP 124/70 H 04/22/20 Respiration 15 04/22/20 Pulse 61 04/22/20 Temp 98.5 F 04/22/20 Temp Source Temporal 05/26/20 Pulse Oximetry (%) 96 04/22/20 Oxygen Delivery [...] Days #20 cap 04/22/20 [Rx Confirmed 04/22/20] [facility] Medical History Hemorrhoid (Chronic) Cystocele (Chronic) Surgical [...] at home: Yes additional social history: - Pbei-Kfbr-pfmvywoe 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 Dee Alvarez DO Status: [facility] Study: Dexa Bone Density Study Date of Exam: 04/10/20 Exam# [id number] Ordering Dr: Dee Alvarez DO STUDY: DUAL [...] support , CC: Dr. Dee Alvarez DO Health Plan Specialist: Signed Dee Alvarez Work Phone: Start: 11-28-2019 End: 11-28-2019 Bladder Tonie Langford [facility] Comment on above: Enriqueta Start: 11-28-2019 End: 11-28-2019 Total hysterectomy Tonie Manmaurisio [facility] Comment on above: Enriqueta and Anastasia did together Start: 10-07-2016 End: 10-07-2016 Bilat Scrn Digital AND CAD Comments: See Note; NOTES: [facility] Imaging Services [address] [place] [address] Verdana 4d Bilat Scrn Digital AND CAD MR#: [id number] Acct: [id number] Name: ERIN DYSON Rep #: [id number] : 1955 F 61 From: Rafal Dos Santos MD PCP: Radha Cramer Status: REG CLI Study: Bilat Scrn Digital AND CAD Date of Exam: 10/07/16 Exam# [id number] Ordering Dr: Radha Cramer MAMMOGRAPHY - BILATERAL SCREENING REASON FOR EXAM: Female, 61 years old. Routine annual screening examination. PERTINENT HISTORY: Grandmother with breast cancer. TECHNIQUE: Digital bilateral breast arti (3D mammographic acquisition) in the CC and MLO projections. 2-D mediolateral oblique (MLO) and craniocaudad (CC) views of both breasts were obtained. CAD: Full Field Digital Mammography with Computer Added Detection was performed. COMPARISON: Comparison is made with prior study dated July 29, 2015 and April 01, 2014. FINDINGS: Breast Composition: The breasts are heterogeneously dense, which may obscure small masses. There are no dominant masses or suspicious calcifications. A tissue clip marker is seen in the upper outer aspect of the left breast. This is unchanged. No other significant abnormalities are identified. There has been no significant change since the prior study. BI/Danielito Henriquez Digital AND CAD IMPRESSION: Stable bilateral screening mammogram. Yearly follow-up mammogram recommended. (A) ASSESSMENT CATEGORY: BIRADS Category 1: Negative. A letter regarding these results will be sent to the patient by the facility within 30 days. Approximately 10% of breast cancers are not detected by mammography. A normal mammogram should not delay biopsy of a clinically suspicious abnormality. [id number] Electronically Signed: Rafal Dos Santos MD at 13:25 EST Tel [phone], Service support [phone], CC: Radha Cramer Health Plan Specialist: Signed Radha Cramer Work Phone: Start: 07-29-2015 End: 07-29-2015 Bilskyla Scrn Digital AND CAD Comments: See Note; NOTES: [facility] Imaging Services [address] [place] [address] Breast Imaging Report MR#: [id number] Acct: [id number] Name: ERIN DYSON Rep #: [id number] : 1955 F 59 From: Rafal Dos Santos MD PCP: Rajat Cummins DO Status: REG CLI Study: Danielito Henriquez Digital AND CAD Date of Exam: 07/29/15 Exam# [id number] Ordering Dr: Rajat Cummisn DO MAMMOGRAPHY - BILATERAL SCREENING REASON FOR EXAM: Female, 59 years old. Routine annual screening examination. PERTINENT HISTORY: Grandmother with breast cancer. Prior left stereotactic breast biopsy. TECHNIQUE: Digital examination. Mediolateral oblique (MLO) and craniocaudad (CC) views of both breasts were obtained. CAD: CAD was performed on this study. COMPARISON: Comparison is made with prior study dated April 01, 2014 and-examination dated September 06, 2012. FINDINGS: Breast Composition: The breasts are heterogeneously dense, which may obscure small masses. There are no dominant masses or suspicious calcifications. A tissue marker clip is seen in the upper outer aspect of the left breast secondary to prior stereotactic biopsy. No other significant abnormalities are identified. There has been no significant change since the prior study. IMPRESSION: Stable bilateral screening mammogram. Yearly follow-up recommended. (A) ASSESSMENT CATEGORY: BIRADS Category 1: Negative. A letter regarding these results will be sent to the patient by the facility within 30 days. Approximately 10% of breast cancers are not detected by mammography. A normal mammogram should not delay biopsy of a clinically suspicious abnormality. Electronically Signed: Rafal Dos Santos MD at 14:34 EDT Tel [phone], Service support [phone], CC: Rajat Cummins DO Health Plan Specialist: Signed Rajat Cummins Work Phone: Start: 07-29-2015 End: 07-31-2015 Dexa Bone Density Study (HP) Comments: See Note; NOTES: [facility] Imaging Services [address] [facility] [place] [address] Bone Density Report MR#: [id number] Acct: [id number] Name: ERIN DYSON Rep #: [id number] : 1955 F 59 From: Rafal Dos Santos MD PCP: Rajat Cummins DO Status: REG CLI Study: Dexa Bone Density Study (HP) Date of Exam: 07/29/15 Exam# [id number] Ordering Dr: Rajat Cummins DO STUDY: DUAL ENERGY X-RAY ABSORPTIOMETRY / DXA REASON FOR EXAM: Female, 59 years old. The patient is postmenopausal. Loss of height. TECHNIQUE: Bone Mineral Density (BMD) measurements of lumbar spine and bilateral hips were obtained. COMPARISON: Comparison is made with prior study dated August 21, 2008. FINDINGS: Lumbar Spine (L1-L4): g/cm2 (1.192) / T-score (0.1) / Z-score (1.4) Findings are suggestive of normal bone density with a low fracture risk. Left Femur Total: g/cm2 (1.092) / T-score (0.7) / Z-score (1.6) Left Femoral Neck: g/cm2 (0.981) / T-score (-0.4) / Z-score (0.9) Right Femur Total: g/cm2 (1.086) / T-score (0.6) / Z-score (1.6) Right Femoral Neck: g/cm2 (0.948) / T-score (-0.6) / Z-score (0.6) The T-Scores on the most recent prior examination were: Lumbar Spine (L1-L4): There has been worsening of bone density since the previous examination. Left Femur Total: which represents a worsening of 9.5%. IMPRESSION: The patient is considered normal as [...] Osteoporosis Foundation http://www.nof.org Electronically Signed: Rafal Dos Santos MD at 10:14 EDT Tel [phone], Service support [phone], CC: Rajat Cummins DO Health Plan Specialist: Signed Rajat Cummins Work Phone: Start: 04-01-2014 End: 04-12-2014 Bilat Scrn Digital & CAD Comments: See Note; NOTES: [facility] Imaging Services [address] [place] [address] Breast Imaging Report MR#: [id number] Acct: [id number] Name: ERIN DYSON Rep #: [id number] : 1955 F 58 From: Rafal Dos Santos MD PCP: Rajat Cummins DO Status: REG CLI Exam# [id number] Ordering Dr: Rajat Cummins DO MAMMOGRAPHY - BILATERAL SCREENING REASON FOR EXAM: Female, 58 years old. Routine annual screening examination. PERTINENT HISTORY: Grandmother with breast cancer. Prior left stereotactic biopsy. TECHNIQUE: Digital examination. Mediolateral oblique (MLO) and craniocaudad (CC) views of both breasts were obtained. CAD: CAD was performed on this study. COMPARISON: Comparison is made with prior examination dated September 06, 2012 and June 15, 2011. FINDINGS: The breast composition is heterogeneously dense - ranging from 51% to 75% of the breast tissue. There are no dominant masses or suspicious calcifications. No other significant abnormalities are identified. There has been no significant change since the prior study. IMPRESSION: Stable bilateral screening mammogram. Yearly follow-up recommended. (A) ASSESSMENT CATEGORY: BIRADS Category 2: Benign finding(s). A letter regarding these results will be sent to the patient by the facility within 30 days. Approximately 10% of breast cancers are not detected by mammography. A normal mammogram should not delay biopsy of a clinically suspicious abnormality. Electronically Signed: Rafal Dos Santos MD at 13:32 EDT Tel [phone], Service support [phone], CC: Rajat Cummins DO Health Plan Specialist: Signed Rajat Cummins Work Phone: Start: 06-15-2011 Mammography Neurology Provider Start: 09-16-2009 Lipid 1996 panel - Serum or Plasma Ozzie Robertson Jr., MD Work Phone: Bunionectomy Tatiana Donna Comment on above: Bilateral. Bunionectomy Tatiana Gravius Comment on above: Bilateral. Bunionectomy with osteotomy of first metatarsal Tatiana Gravius Comment on above: Bilateral. Bunionectomy with osteotomy of first metatarsal Disha Carnes Comment on above: Bilateral. Bunionectomy with osteotomy of first metatarsal Disha Cross WIRE PHOTO OPERATOR Comment on above: Bilateral. Bunionectomy with osteotomy of first metatarsal Tonie Manchak CURING OVEN ATTENDANT Comment on above: Bilateral. Bunionectomy with osteotomy of first metatarsal Tonie Manchak CURING OVEN ATTENDANT Comment on above: Bilateral. Bunionectomy with osteotomy of first metatarsal Tonie Manchak CURING OVEN ATTENDANT Comment on above: Bilateral. Bunionectomy with osteotomy of first metatarsal Tonie Manchak CURING OVEN ATTENDANT Comment on above: Bilateral. Bunionectomy with osteotomy of first metatarsal Kayela Spokane CURING OVEN ATTENDANT Comment on above: Bilateral. Bunionectomy with osteotomy of first metatarsal Tonie Manchak CURING OVEN ATTENDANT Comment on above: Bilateral. Bunionectomy with osteotomy of first metatarsal Tonie Manchak CURING OVEN ATTENDANT Comment on above: Bilateral. 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 Tonie Manchak CURING OVEN ATTENDANT Plan of Treatment Date Care Activity Detail Author Start: 11-02-2024 End: 11-02-2024 Patient encounter procedure 11/02/2024 3:20 PM EST Office Visit Neurology [address] [place] [address] Ozzie Robertson Jr., MD [address] [facility] [address] [place] [address] 3 Month Follow up Neurology Comment on above: 3 Month Follow up Start: 07-29-2024 Covid-19 Vaccine ( season) Covid-19 Vaccine ( season) [facility] Start: 07-29-2024 Influenza vaccination [facility] Start: 05-04-2024 End: 05-04-2024 Patient encounter procedure 05/04/2024 9:00 AM EDT Office Visit Neurology [address] [facility] [place] [address] Ozzie Robertson Jr., MD [address] [facility] [address] [place] [id number] 3 Month Follow up Neurology Comment on above: 3 Month Follow up Start: 11-28-2023 Advance Directive Discussion Advance Directive Discussion [facility] Start: 2023 End: 10-19-2023 Cobalamin (Vitamin B12) [Mass/volume] in Serum or Plasma [facility] Work Phone: Comment on above: Expected: 2023 , Expires: 10/19/2023 Start: 2023 End: 10-19-2023 Thyrotropin [Units/volume] in Serum or Plasma [facility] Work Phone: Comment on above: Expected: 2023 , Expires: 10/19/2023 Start: 2023 End: 10-19-2023 Thyroxine (T4) free [Mass/volume] in Serum or Plasma [facility] Work Phone: Comment on above: Expected: 2023 , Expires: 10/19/2023 Start: 07-29-2023 Covid-19 Vaccine () Covid-19 Vaccine () [facility] Start: 07-29-2023 Influenza vaccination C [facility] Start: 07-12-2023 Procedure Education Eprescribe d prescriptions (G8553) [facility]; [facility] Work Phone: Start: 07-12-2023 Cyanocobalamin vitam in b-12 VITAMIN B12 AND FOLATES (65807) [facility]; [facility] Work Phone: Start: 07-12-2023 Blood count complete auto&auto difrntl wbc CBC W/AUTO DIFF WBC (57620) [facility]; [facility] Work Phone: Start: 07-12-2023 Comprehensive metabo lic panel METABOLIC PANEL, COMPREHENSIVE (87045) [facility]; [facility] Work Phone: Start: 01-11-2023 Procedure Education Eprescribe d prescriptions (G8553) [facility]; [facility] Work Phone: Start: 01-11-2023 Blood count complete auto&auto difrntl wbc CBC W/AUTO DIFF WBC (17117) [facility]; [facility] Work Phone: Start: 01-11-2023 Comprehensive metabo lic panel METABOLIC PANEL, COMPREHENSIVE (99545) [facility]; [facility] Work Phone: Start: 01-11-2023 Cyanocobalamin vitam in b-12 VITAMIN B12 AND FOLATES (44205) [facility]; [facility] Work Phone: Start: 11-28-2022 ADVANCE DIRECTIVE DISCUSSION ADVANCE DIRECTIVE DISCUSSION [facility] Start: 11-28-2022 DEPRESSION ASSESSMENT DEPRESSION ASS ESSMENT [facility] Start: 07-09-2022 Procedure Education Eprescribe d prescriptions (G8553) [facility]; [facility] Work Phone: Start: 07-09-2022 Comprehensive metabo lic panel METABOLIC PANEL, COMPREHENSIVE (12761) [facility]; [facility] Work Phone: Start: 07-09-2022 25 hydroxy includes fractions if performed Vitamin D Hydroxy (25144) [facility]; [facility] Work Phone: Start: 07-09-2022 Lipid panel LIPID PANEL (15441) [facility]; [facility] Work Phone: Start: 04-28-2022 Procedure Education Eprescribe d prescriptions (G8553) [facility]; [facility] Work Phone: Start: 12-29-2021 Urnls dip stick/tabl et reagent auto microscopy URINALYSIS, W/ MICRO (83370) [facility]; [facility] Work Phone: Start: 12-29-2021 Blood count complete auto&auto difrntl wbc CBC W/AUTO DIFF WBC (22026) [facility]; [facility] Work Phone: Start: 12-29-2021 Comprehensive metabo lic panel METABOLIC PANEL, COMPREHENSIVE (66928) [facility]; [facility] Work Phone: Start: 12-29-2021 Procedure Education Eprescribe d prescriptions (G8553) [facility]; [facility] Work Phone: Start: 12-29-2021 Comprehensive metabo lic panel METABOLIC PANEL, COMPREHENSIVE (38348) [facility]; [facility] Work Phone: Start: 12-29-2021 25 hydroxy includes fractions if performed Vitamin D Hydroxy (99568) [facility]; [facility] Work Phone: Start: 12-29-2021 Lipid panel LIPID PANEL (81213) [facility]; [facility] Work Phone: Start: 12-17-2021 25 hydroxy includes fractions if performed Vitamin D Hydroxy (77888) [facility]; [facility] Work Phone: Start: 12-17-2021 Comprehensive metabo lic panel METABOLIC PANEL, COMPREHENSIVE (35751) [facility]; [facility] Work Phone: Start: 12-17-2021 Lipid panel LIPID PANEL (07801) [facility] pre[facility]; [facility] Work Phone: Start: 08-24-2021 Urinalysis qual/semiquant except immunoassays URINALYSIS (34074) [facility]; [facility] Work Phone: Start: 08-24-2021 Culture bacterial quanttative colony count urine URINE ALONDRA CULTURE (PHU COL COUNT) (20786) [facility]; [facility] Work Phone: Start: 07-14-2021 Procedure Education Eprescribe d prescriptions (G8553) [facility]; [facility] Work Phone: Start: 07-14-2021 Hepatic function panel HEPATIC FUNCTION PANEL (33624) [facility]; [facility] Work Phone: Comment on above: next month Start: 06-12-2021 Comprehensive metabo lic panel Metabolic Panel, Comprehensive (31575) [facility]; [facility] Work Phone: Start: 06-09-2021 Procedure Education Eprescribe d prescriptions (G8553) [facility]; [facility] Work Phone: Start: 05-07-2021 Procedure Education Eprescribe d prescriptions (G8553) [facility]; [facility] Work Phone: Start: 12-08-2020 Assay of magnesium MAGNESIUM (78056) [facility]; [facility] Work Phone: Start: 12-08-2020 Magnesium [Mass/Vol] MAGNESIUM (8373 5) [facility]; [facility] Work Phone: Start: 12-08-2020 Blood count complete auto&auto difrntl wbc CBC W/AUTO DIFF WBC (53235) [facility]; [facility] Work Phone: Start: 12-08-2020 Assay of thyroid stimulating hormone tsh TSH (79060) [facility]; [facility] Work Phone: Start: 12-08-2020 [facility] (67414) [facility] [place] [facility]; [facility] Work Phone: Start: 12-08-2020 Comprehensive metabo lic panel METABOLIC PANEL, COMPREHENSIVE (99487) [facility]; [facility] Work Phone: Start: 12-08-2020 Procedure Education Eprescribe d prescriptions (G8553) [facility]; [facility] Work Phone: Start: 08-20-2020 Procedure Education Eprescribe d prescriptions (G8553) [facility] Work Phone: Start: 04-04-2020 Procedure Education Eprescribe d prescriptions (G8553) [facility] Work Phone: Start: 04-04-2020 Provider Instruction s for Treatment Follow up in 2 weeks [facility] Work Phone: Start: 04-04-2020 25 hydroxy includes fractions if performed CALCIFEDIOL (41191) [facility] Work Phone: Start: 09-16-2019 Urine microalbumin profile [facility] Start: 2019 BONE DENSITY BONE DENSITY [facility] Start: 2019 Bone Density Screening Bone Density Screening [facility] Start: 2019 Pneumococcal Vaccine : 65+ (1 - PCV) Pneumococcal Vaccine: 65+ (1 - PCV) [facility] Start: 2019 Pneumococcal Vaccine : 65+ (1 of 1 - PCV) Pneumococcal Vaccine: 65+ (1 of 1 - PCV) [facility] Start: 2019 PNEUMOCOCCAL: 65+ (1 - PCV) PNEUMOCOCCAL: 65+ (1 - PCV) [facility] Start: 2019 Screening for osteoporosis Bone Density Screening [facility] Start: 08-12-2017 25 hydroxy includes fractions if performed CALCIFEDIOL (30856) [facility] Work Phone: Start: 04-09-2017 DIABETES SCREEN DIABETES SCREEN [facility] Start: 04-09-2017 Diabetes Screening Diabetes Screenin g [facility] Start: 08-10-2016 Provider Instruction s for Treatment [facility] Work Phone: Start: 08-07-2015 25 hydroxy includes fractions if performed Vitamin D Hydroxy (30159) [facility] Work Phone: Start: 07-22-2015 Procedure Education Eprescribe d prescriptions (G8553) [facility] Work Phone: Start: 07-22-2015 25 hydroxy includes fractions if performed Vitamin D Hydroxy (48504) [facility] Work Phone: Start: 07-22-2015 Urnls dip stick/tabl et reagent auto microscopy URINALYSIS, W/ MICRO (90818) [facility] Work Phone: Start: 07-22-2015 Blood count complete auto&auto difrntl wbc CBC W/AUTO DIFF WBC (58732) [facility] Work Phone: Start: 07-22-2015 Comprehensive metabo lic panel METABOLIC PANEL, COMPREHENSIVE (47028) [facility] Work Phone: Start: 07-22-2015 Lipid panel LIPID PANEL (32796) [facility] Work Phone: Start: 09-16-2014 Lipid 1996 panel - S swathi or Plasma Lipid Screening [facility] Start: 09-16-2014 Lipid panel Lipid Screening [facility] Start: 09-16-2014 LIPID SCREEN LIPID SCREEN [facility] Start: 2014 RSV Vaccine (1 - 1-d ose 60+ series) RSV Vaccine (1 - 1-dose 60+ series) [facility] Start: 03-25-2014 Lipid panel LIPID PANEL (27629) [facility] Work Phone: Start: 03-25-2014 Urnls dip stick/tabl et reagent auto microscopy URINALYSIS, W/ MICRO (99609) [facility] Work Phone: Start: 03-25-2014 Blood count manual c ell count each CBC WITH MANUAL DIFF (02168) [facility] Work Phone: Start: 03-25-2014 Comprehensive metabo lic panel METABOLIC PANEL, COMPREHENSIVE (11273) [facility] Work Phone: Start: 01-24-2013 Provider Instruction s for Treatment [facility] Work Phone: Start: 06-15-2012 Mammography [facility] Start: 06-15-2012 Screening for malign ant neoplasm of breast Mammogram Screening [facility] Start: 2004 SHINGRIX VACCINE (1 of 2) SHINGRIX VACCINE (1 of 2) [facility] Start: 1999 COLOGUARD (FIT-DNA) COLOGUARD (FIT-D NA) [facility] Start: 1999 Colonoscopy COLONOSCOPY [facility] Start: 1999 COLORECTAL CANCER SCREENING COLORECTAL CANCER SCREENING [facility] Start: [address] COLONOGRAPHY [facility] Start: 1999 FECAL OCCULT BLOOD FECAL OCCULT BLOO D [facility] Start: 1999 Screening for malign ant neoplasm of colon [facility] Start: 1999 SIGMOIDOSCOPY SIGMOIDOSCOPY [facility] Start: 1972 HEPATITIS C SCREENING HEPATITIS C [facility] Start: 1972 Hepatitis C screening Hepatitis C [facility] Start: [birth year]16-1956 COVID-19 VACCINE (#1) COVID-19 VACCI NE (#1) [facility] End: 09-17-2024 Mri brain brain stem w/o contrast material MRI BRAIN WO IVCON Radiology Routine Memory loss Cognitive decline 1 Occurrences starting 2023 until 09/17/2024 [facility] Work Phone: Comment on above: 1 Occurrences starti ng 2023 until 09/17/2024 [facility] Work Phone: [facility] Work Phone: [facility] Work Phone: [facility] Work Phone: [facility] Work Phone: [facility] Work Phone: [facility] Work Phone: [facility] Work Phone: [facility] Work Phone: [facility] Work Phone: [facility] Work Phone: [facility]; [facility] Work Phone: [facility]; [facility] Work Phone: [facility]; [facility] Work Phone: [facility] Immunizations Immunization Date Immunization Notes Care Provider [facility] 10-02-2020 influenza virus vacc ine, unspecified formulation Ozzie Robertson Jr., MD Work Phone: [facility] 09-16-2009 tetanus toxoid, redu marnie diphtheria toxoid, and acellular pertussis vaccine, adsorbed Neurology Provider [facility] Payers Date Payer Category Payer [facility] [id number] 2022-Present [phone] [address] [place] [address] PPO [id number] 2022 Unknown [id number] 2021 Unknown [id number] 2020 Medicare MEDICARE MEDICAR E A AND B [id number] 2020-Present [phone] [place] [address] Medicare [id number] 2020 Medicare [id number] 2014 Unknown [id number] 2005 Unknown [id number] 1954 Unknown [id number] Unknown Social History Date Type Detail Facility Start: 07-14-2022 End: 2023 Alcohol Use Alcohol Use [facility] Work Phone: Comment on above: Occasional alcohol u se, Drinks wine 4-6 cups coffee qd Part-time, [employer]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 , Lives with spouse Start: 06-15-2011 [facility] Start: 06-15-2011 Tobacco use and exposure Smokeless tobacco non-user [facility] Start: 07-14-2022 End: 05-06-2024 Alcohol intake Current drinker of alcohol (finding) [facility] Start: 07-14-2022 End: 2023 Tobacco use panel [facility] Start: 1955 Sex Assigned At Not on file [facility] National Score (1-10 0), lower number is lower risk 99 [facility] Clinical Notes 06-08-2023 to 07-31-2024 Telephone Encounter - Jesika Sylvester RN - 07/31/2024 8:27 AM EDTTelephone Encounter - Jesika Sylvester RN - 07/31/2024 8:27 AM Ozzie Iyer Jr., MD - 05/04/2024 8:27 AM EDT Note Date & Type Note Facility 07-31-2024 Telephone encounter Note Patient has appointment scheduled with provider on 11/02/2024. Jesika Sylvester RN [facility] 07-31-2024 Miscellaneous Notes Patient has appointment scheduled with provider on 11/02/2024. Jesika Sylvester RN The patient has been identified by name and date of : Yes Caregiver verified no other encounters exist for this prescription request: Yes Caregiver confirmed with patient/requestor that no other refills are due, in the near future, with this provider at this time: Yes The last office visit in the department: 05/04/24 Does the patient have a future office visit with this provider/department: No Transferred pt to imaging scheduler to get 6 month follow up apt booked. Requested Prescriptions Pending Prescriptions Disp Refills memantine (NAMENDA) 5 mg tablet 180 tablet 0 Sig: Take 1 tablet by mouth two times a day. Memo Lucio LPN July 31, 2024 8:21 AM documented in this encounter [facility] 07-31-2024 Telephone encounter Note The patient has been identified by name and date of : Yes Caregiver verified no other encounters exist for this prescription request: Yes Caregiver confirmed with patient/requestor that no other refills are due, in the near future, with this provider at this time: Yes The last office visit in the department: 05/04/24 Does the patient have a future office visit with this provider/department: No Transferred pt to imaging scheduler to get 6 month follow up apt booked. Requested Prescriptions Pending Prescriptions Disp Refills memantine (NAMENDA) 5 mg tablet 180 tablet 0 Sig: Take 1 tablet by mouth two times a day. Memo Lucio LPN July 31, 2024 8:21 AM [facility] 05-04-2024 Note HNO ID: [id number] Author: OZZIE ROBERTSON JR, MD Service: ? Author Type: Physician Type: Progress Notes Filed: 05/06/2024 23:30 Note Text: See other note. [facility] 05-04-2024 Note HNO ID: [id number] Author: OZZIE ROBERTSON JR, MD Service: ? Author Type: Physician Type: Progress Notes Filed: 05/06/2024 23:30 Note Text: ESTABLISHED PATIENT VISIT CHIEF COMPLAINT: Follow Up HISTORY OF PRESENT ILLNESS: Erin Dyson is a 68 year old female, with a PMH significant for and per last office visit of 12/30/23: 1. Cognitive decline - ICD9: 294.9, ICD10: R41.89 (primary diagnosis) 2. Memory loss - ICD9: 780.93, ICD10: R41.3 Patient with primary complaints of cognitive decline and memory loss since first seen, further supported by objective scores on MOCA testing and MRI brain showing hippocampal atrophy. The latter might suggest a neurodegenerative process. The patient has had some positive response to Namenda despite only taking 5mg daily -- MOCA score improved today. Patient does not want additional workup, expresses no interest in being seen in [place] [facility] and would not want infusion therapies if a candidate. For now will continue on Namenda since already started but will again try to increase to 5mg BID. SE and ADRs reviewed with pt. We also discussed other med options such as Aricept. Encouraged brain exercises. At this time, cognition is not having anysignificant impacting on daily life, but advised patient to be watchful for any impairments given scores on prior MOCA tests. Pt expresses understanding and agrees with plan. Pt will follow up in 3 months given med change and reeval by MOCA. MRI brain report again reviewed this AM with patient. Per report: IMPRESSION: * No evidence of an acute intracranial process or intracranial mass. * Mild generalized volume loss. * Chiari I malformation. * Hippocampal volumes at the 9 percentile when compared to age matched normal controls by quantitative analysis. * Mild nonspecific white matter disease likely reflective of chronic microvascular ischemia. During interim, patient was on Namenda 5mg BID but was discontinued briefly as pt thought it was cause of constipation - it was not. Restarted Namenda about 2 weeks ago. Patient also taking a Lion's eduin/mushroom (Leslie) gummy on her own. Patient feels cognition not much worse but also not much better. Patient brain exercising daily and still working. No issues at work. Note that at this time, lost connection with xaitment due to system downtime. MOCA was completed. Score improved to 25/29. REVIEW OF SYSTEMS GENERAL:No weight loss, malaise [...] above. SKIN:Negative for lesions, rash, and itching. LAB/IMAGING: Those performed since patient's last visit have been reviewed. Requesting most recent labs from PCP office. Prior TSH and B12 normal. MEDICATIONS: memantine (NAMENDA) 5 mg tablet Take 1 tablet by mouth two times a day. ascorbic acid, vitamin C, (VITAMIN C) 250 mg tablet Take 250 mg by mouth once daily. cholecalciferol, vitamin D3, (VITAMIN D-3) 10 mcg [...] Comment: occassional Drug use: No PHYSICAL EXAMINATION LMP 03/27/2006 GENERAL EXAM: General appearance: NAD, pleasant. HEENT: NC/AT, nasal congestion absent, no oral lesions, membranes moist. Lungs: CTA bilaterally. CV: RRR nl S1, S2 Extr: No cyanosis, clubbing or edema. Skin: Cool to touch. NEUROLOGICAL EXAM: General: Awake, alert, oriented x3 (person,place,time), fluent, no dysarthria; comprehension, naming, repetition intact. CN: PERRL, EOMI and without nystagmus, VFF to confrontation, facial sensation and strength are normal and symmetric, hearing is intact to finger rub bilaterally, palate and tongue movements are intact and symmetric. SCM and trapezius (more content not included)... [facility] 05-04-2024 History of Presen t illness Narrative See other note. ESTABLISHED PATIENT VISIT CHIEF COMPLAINT: Follow Up HISTORY OF PRESENT ILLNESS: Erin Dyson is a 68 year old female, with a PMH significant for and per last office visit of 12/30/23: 1. Cognitive decline - ICD9: 294.9, ICD10: R41.89 (primary diagnosis) 2. Memory loss - ICD9: 780.93, ICD10: R41.3 Patient with primary complaints of cognitive decline and memory loss since first seen, further supported by objective scores on MOCA testing and MRI brain showing hippocampal atrophy. The latter might suggest a neurodegenerative process. The patient has had some positive response to Namenda despite only taking 5mg daily -- MOCA score improved today. Patient does not want additional workup, expresses no interest in being seen in [place] [facility] and would not want infusion therapies if a candidate. For now will continue on Namenda since already started but will again try to increase to 5mg BID. SE and ADRs reviewed with pt. We also discussed other med options such as Aricept. Encouraged brain exercises. At this time, cognition is not having any significant impacting on daily life, but advised patient to be watchful for any impairments given scores on prior MOCA tests. Pt expresses understanding and agrees with plan. Pt will follow up in 3 months given med change and reeval by MOCA. MRI brain report again reviewed this AM with patient. Per report: IMPRESSION: * No evidence of an acute intracranial process or intracranial mass. * Mild generalized volume loss. * Chiari I malformation. * Hippocampal volumes at the 9 percentile when compared to age matched normal controls by quantitative analysis. * Mild nonspecific white matter disease likely reflective of chronic microvascular ischemia. During interim, patient was on Namenda 5mg BID but was discontinued briefly as pt thought it was cause of constipation - it was not. Restarted Namenda about 2 weeks ago. Patient also taking a Lion's eduin/mushroom (Leslie) gummy on her own. Patient feels cognition not much worse but also not much better. Patient brain exercising daily and still working. No issues at work. Note that at this time, lost connection with xait[employer] due to system downtime. MOCA was completed. Score improved to 25/29. REVIEW OF SYSTEMS GENERAL:No weight loss, malaise [...] above. SKIN:Negative for lesions, rash, and itching. LAB/IMAGING: Those performed since patient's last visit have been reviewed. Requesting most recent labs from PCP office. Prior TSH and B12 normal. MEDICATIONS: memantine (NAMENDA) 5 mg tablet Take 1 tablet by mouth two times a day. ascorbic acid, vitamin C, (VITAMIN C) 250 mg tablet Take 250 mg by mouth once daily. cholecalciferol, vitamin D3, (VITAMIN D-3) 10 mcg [...] Comment: occassional Drug use: No PHYSICAL EXAMINATION LMP 03/27/2006 GENERAL EXAM: General appearance: NAD, pleasant. HEENT: NC/AT, nasal congestion absent, no oral lesions, membranes moist. Lungs: CTA bilaterally. CV: RRR nl S1, S2 Extr: No cyanosis, clubbing or edema. Skin: Cool to touch. NEUROLOGICAL EXAM: General: Awake, alert, oriented x3 (person,place,time), fluent, no dysarthria; comprehension, naming, repetition intact. CN: PERRL, EOMI and without nystagmus, VFF to confrontation, facial sensation and strength are normal and symmetric, hearing is intact to finger rub bilaterally, palate and tongue movements are intact and symmetric. SCM and trapezius strength normal. Motor: Normal tone, bulk and strength (5/5) bilaterally (throughout extremities x4). Coordination: FNF, TAD, HTS intact. No tremors. Sensation: LT intact throughout. No evidence of neglect. Gait: Stable with normal stride and arm swing. Assessment and Plan: ASSESSMENT/PLAN: 1. Cognitive decline - ICD9: 294.9, ICD10: R41.89 (primary diagnosis) 2. Memory loss - ICD9: 780.93, ICD10: R41.3 Patient with stable cognitive assessment since last evaluation. Patient reports still functioning at acceptable level at work and no limitations in daily activities. No driving issues. MOA stable (slightly improved). D/w pt and she would like to make no changes to therapies at this time. Reviewed MRI brain with pt again and she is understanding of hippocampi changes. For now, will continue Namenda 5mg BID and SE and ADRs d/w pt - again reviewed possible SE and ADRs/ Patient will follow up in 6 months for reevaluation. If progression of symptoms will then increase Namenda to 10mg BID. Follow up sooner prn. Encouraged brain exercises. Ozzie Robertson MD I spent a total of 35 minutes on the date of the service which included preparing to see the patient, [id number] patient care, completing clinical documentation, obtaining and/or reviewing separately obtained history, performing a medically appropriate examination, counseling and educating the patient/family/caregiver, ordering medications, tests, or procedures, and communicating results to the patient/family/caregiver. documented in this encounter [facility] 04-09-2024 Telephone encounter Note Please see attached labs: Scan on 04/09/2024 9:20 AM by Provider, External, PABubbaC: Miscellaneous Lab Radha Manning LPN [facility] 04-09-2024 Miscellaneous Notes Please see attached labs: Scan on 04/09/2024 9:20 AM by Provider, External, PABubbaC: Miscellaneous Lab Radha Manning LPN Fax request sent to PCP for lab results. Radha Manning LPN Patient has been identified by name and date of : Patient phones for refill(s): Requested Prescriptions Pending Prescriptions Disp Refills memantine (NAMENDA) 5 mg tablet 60 tablet 2 Sig: Take 1 tablet by mouth two times a day. Namenda 5 mg, 12/30/2023 qty 60 w/ 2 r/f OV 12/30/2023 OV [facility]N Next OV 05/04/2024 WJN Assessment and Plan: ASSESSMENT/PLAN: 1. Cognitive decline - ICD9: 294.9, ICD10: R41.89 (primary diagnosis) 2. Memory loss - ICD9: 780.93, ICD10: R41.3 Patient with primary complaints of cognitive decline and memory loss since first seen, further supported by objective scores on MOCA testing and MRI brain showing hippocampal atrophy. The latter might suggest a neurodegenerative process. The patient has had some positive response to Namenda despite only taking 5mg daily -- MOCA score improved today. Patient does not want additional workup, expresses no interest in being seen in [place] at the [facility] and would not want infusion therapies if a candidate. For now will continue on Namenda since already started but will again try to increase to 5mg BID. SE and ADRs reviewed with pt. We also discussed other med options such as Aricept. Encouraged brain exercises. At this time, cognition is not having any significant impacting on daily life, but advised patient to be watchful for any impairments given scores on prior MOCA tests. Pt expresses understanding and agrees with plan. Pt will follow up in 3 months given med change and reeval by MOCA. Ozzie Robertson MD I Patient has been identified by name and date of : Patient phones for refill(s): Requested Prescriptions Pending Prescriptions Disp Refills memantine (NAMENDA) 5 mg tablet 60 tablet 2 Sig: Take 1 tablet by mouth two times a day. Date of last office visit in primary care: 12/30/2023 Date of next office visit in primary care: 05/04/2024 Please advise. Thank you. Jesika Sylvester RN. documented in this encounter [facility] 04-09-2024 Telephone encounter Note Fax request sent to PCP for lab results. Radha Manning LPN [facility] 04-06-2024 Telephone encounter Note Patient has been identified by name and date of : Patient phones for refill(s): Requested Prescriptions Pending Prescriptions Disp Refills memantine (NAMENDA) 5 mg tablet 60 tablet 2 Sig: Take 1 tablet by mouth two times a day. Namenda 5 mg, 12/30/2023 qty 60 w/ 2 r/f OV 12/30/2023 OV WJN Next OV 05/04/2024 WJN Assessment and Plan: ASSESSMENT/PLAN: 1. Cognitive decline - ICD9: 294.9, ICD10: R41.89 (primary diagnosis) 2. Memory loss - ICD9: 780.93, ICD10: R41.3 Patient with primary complaints of cognitive decline and memory loss since first seen, further supported by objective scores on MOCA testing and MRI brain showing hippocampal atrophy. The latter might suggest a neurodegenerative process. The patient has had some positive response to Namenda despite only taking 5mg daily -- MOCA score improved today. Patient does not want additional workup, expresses no interest in being seen in [place] at the [facility] and would not want infusion therapies if a candidate. For now will continue on Namenda since already started but will again try to increase to 5mg BID. SE and ADRs reviewed with pt. We also discussed other med options such as Aricept. Encouraged brain exercises. At this time, cognition is not having any significant impacting on daily life, but advised patient to be watchful for any impairments given scores on prior MOCA tests. Pt expresses understanding and agrees with plan. Pt will follow up in 3 months given med change and reeval by MOCA. Ozzie Robertson MD I [facility] 04-06-2024 Telephone encounter Note Patient has been identified by name and date of : Patient phones for refill(s): Requested Prescriptions Pending Prescriptions Disp Refills memantine (NAMENDA) 5 mg tablet 60 tablet 2 Sig: Take 1 tablet by mouth two times a day. Date of last office visit in primary care: 12/30/2023 Date of next office visit in primary care: 05/04/2024 Please advise. Thank you. Jesika Sylvester RN. [facility] 02-07-2024 Miscellaneous Notes Pt reports she did not hear back from the office so she called her pcp and she sent her a prescription for Meclizine 12.5 mg. Pt picked the medication up but did not take because the symptoms had resolved. Pt feels she may of just got up to quick. She wanted this information relayed to the provider. Memo Lucio LPN TC to pt with no answer, left VM to return call. Radha Manning LPN TC to pt with no answer, left VM to return call. Radha Manning LPN TC to pt with no answer, left VM to return call. Please see below and advise. Radha Manning LPN Please have pt hold Namenda. However, uncertain if current symptoms due to Namenda and if not resolving would recommend ER evaluation. Thank you, Ozzie Robertson MD Patient calls and states that she take namenda twice a day. Patient states that she took medication around 6 am this morning. Patient states that around 8 she got up from working on a puzzle and she was dizzy. Patient reports that room was spinning and tilting. Patient still feels a little lightheaded. Patient asking if there is anything to take to help with this? Patient also asking if she should take next dose of Namenda at 6 pm? Please review and advise, Jesika Sylvester RN documented in this encounter [facility] 12-30-2023 Note HNO ID: [id number] Author: OZZIE ROBERTSON JR, MD Service: ? Author Type: Physician Type: Progress Notes Filed: 12/30/2023 09:36 Note Text: ESTABLISHED PATIENT VISIT CHIEF COMPLAINT: Follow Up HISTORY OF PRESENT ILLNESS: Erin Dyson is a 68 year old female, with a PMH significant for and per last office visit of 08/19/23: 1. Memory loss - ICD9: 780.93, ICD10: [...] of follow up. Pt agrees with plan. Vitamin B12 Date Value Ref Range Status 2023 780 232 - 1,245 pg/mL Final TSH Date Value Ref Range Status 2023 1.930 0.270 - 4.200 mIU/L Final MRI brain completed 10/04/23: * No evidence of an acute intracranial process or intracranial mass. * Mild generalized volume loss. * Chiari I malformation. * Hippocampal volumes at the 9 percentile when compared to age matched normal controls by quantitative analysis. * Mild nonspecific white matter disease likely reflective of chronic microvascular ischemia. Pt saw Mason Gurrola in late 09/2023 and at that time started on Namenda 5mg BID. Neuropsych testing still yet to be completed. Pt later reports side effects on Namenda of insomnia and headache and appears dose was decreased to 5mg daily. Pt feels since on the Namenda 5mg jose feels like things are a little better. 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 MODIFIED MOCA: HATBC Immediate recall: 5/5 Number repeat: 2/2 Sentence repeat: 12/30 Serial 7s: 100-93-92 11/30 Abstract: 12/30 Orientation: 05/03 Delayed recall: 12/02 (01/30 with cues) A tap: 11/28 Words begin with letter * in 1 min: 11/28 Clock drawin/3 Cube draw: 11/28 Namin/3 TOTAL: Pt states that cognition has no impact on her work. REVIEW OF SYSTEMS GENERAL:No weight loss, malaise [...] the ROS was reviewed and is negative. MEDICATIONS: memantine (NAMENDA) 5 mg tablet Take 1 tablet by mouth two times a day. cholecalciferol, vitamin D3, (VITAMIN D-3) 10 mcg [...] Smokeless tobacco: Never Substance Use Topics Alcohol u (more content not included)... [facility] 12-30-2023 History of Presen t illness Narrative ESTABLISHED PATIENT VISIT CHIEF COMPLAINT: Follow Up HISTORY OF PRESENT ILLNESS: Erin Dyson is a 68 year old female, with a PMH significant for and per last office visit of 08/19/23: 1. Memory loss - ICD9: 780.93, ICD10: [...] of follow up. Pt agrees with plan. Vitamin B12 Date Value Ref Range Status 2023 780 232 - 1,245 pg/mL Final TSH Date Value Ref Range Status 2023 1.930 0.270 - 4.200 mIU/L Final MRI brain completed 10/04/23: * No evidence of an acute intracranial process or intracranial mass. * Mild generalized volume loss. * Chiari I malformation. * Hippocampal volumes at the 9 percentile when compared to age matched normal controls by quantitative analysis. * Mild nonspecific white matter disease likely reflective of chronic microvascular ischemia. Pt saw Mason Gurrola in late 09/2023 and at that time started on Namenda 5mg BID. Neuropsych testing still yet to be completed. Pt later reports side effects on Namenda of insomnia and headache and appears dose was decreased to 5mg daily. Pt feels since on the Namenda 5mg jose feels like things are a little better. 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 MODIFIED MOCA: HATBC Immediate recall: 04/01 Number repeat: 12/30 Sentence repeat: 12/30 Serial 7s: 100-93-92 11/30 Abstract: 12/30 Orientation: 05/03 Delayed recall: 12/02 (01/30 with cues) A tap: 11/28 Words begin with letter * in 1 min: 11/28 Clock drawin/3 Cube draw: 11/28 Namin/3 TOTAL: Pt states that cognition has no impact on her work. REVIEW OF SYSTEMS GENERAL:No weight loss, malaise [...] the ROS was reviewed and is negative. MEDICATIONS: memantine (NAMENDA) 5 mg tablet Take 1 tablet by mouth two times a day. cholecalciferol, vitamin D3, (VITAMIN D-3) 10 mcg [...] Comment: occassional Drug use: No PHYSICAL EXAMINATION Blood pressure 124/72, pulse 78, resp. rate 16, weight 62.7 kg (138 lb 3.2 oz), last menstrual period 03/27/2006, SpO2 97%. GENERAL EXAM: General appearance: NAD, pleasant. HEENT: NC/AT, nasal congestion absent, no oral lesions, membranes moist. NECK: ROM nml. Lungs: CTA bilaterally. CV: RRR nl S1, S2 Extr: No cyanosis, clubbing or edema. Skin: Cool to touch. NEUROLOGICAL EXAM: General: Awake, alert, oriented x3 (person,place,time), speech fluent, no dysarthria; comprehension, naming, repetition intact. CN: PERRL, EOMI and without nystagmus, VFF to confrontation, facial sensation and strength are normal and symmetric, hearing is intact to finger rub bilaterally, palate and tongue movements are intact and symmetric. SCM and trapezius strength normal. Motor: Normal tone, bulk and strength (5/5) bilaterally (throughout extremities x4). Coordination: FNF, TAD, HTS intact. No tremors. Sensation: LT intact throughout. No evidence of neglect. Gait: Stable with normal stride and arm swing. Assessment and Plan: ASSESSMENT/PLAN: 1. Cognitive decline - ICD9: 294.9, ICD10: R41.89 (primary diagnosis) 2. Memory loss - ICD9: 780.93, ICD10: R41.3 Patient with primary complaints of cognitive decline and memory loss since first seen, further supported by objective scores on MOCA testing and MRI brain showing hippocampal atrophy. The latter might suggest a neurodegenerative process. The patient has had some positive response to Namenda despite only taking 5mg daily -- MOCA score improved today. Patient does not want additional workup, expresses no interest in being seen in [place] at the [facility] and would not want infusion therapies if a candidate. For now will continue on Namenda since already started but will again try to increase to 5mg BID. SE and ADRs reviewed with pt. We also discussed other med options such as Aricept. Encouraged brain exercises. At this time, cognition is not having any significant impacting on daily life, but advised patient to be watchful for any impairments given scores on prior MOCA tests. Pt expresses understanding and agrees with plan. Pt will follow up in 3 months given med change and reeval by MOCA. Ozzie Robertson MD I spent a total of 30+ minutes on the date of the service which included preparing to see the patient, [id number] patient care, completing clinical documentation, obtaining and/or reviewing separately obtained history, performing a medically appropriate examination, counseling and educating the patient/family/caregiver, ordering medications, tests, or procedures, and communicating results to the patient/family/caregiver. documented in this encounter [facility] 12-30-2023 Note HNO ID: [id number] Author: JOSE LUCIO LPN Service: ? Author Type: LICENSED NURSE Type: Progress Notes Filed: 12/30/2023 09:36 Note Text: [facility] 11-14-2023 Miscellaneous Notes 1st attempt, left VM about canceled appointment with Danni Gurrola on 01/13. Need to reschedule. documented in this encounter [facility] 11-11-2023 Miscellaneous Notes Spoke with pt and information listed below given. Pt verbalizes understanding. Pt will take (1) 5 mg in the am only. Memo Lucio LPN TC to pt with no answer, left VM to return call. Please advise pt to take 5 mg namenda in morning only to see if help symptoms. Radha Manning LPN Do you want her to take 10 mg once daily or 5 mg once daily? Radha Manning LPN I would try taking Namenda in [...] Gricelda Reyez RN documented in this encounter [facility] 10-12-2023 Miscellaneous Notes Sent Namenda to [facility] pharmacy. 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 Geneva Mejia LPN documented in this encounter [facility] 10-11-2023 Note HNO ID: [id number] Author: Danin Gurrola PA-C Service: ? Author Type: Physician Inspector Rag Sorting Type: Progress Notes Filed: 10/11/2023 3:54 PM [...] follow up HISTORY OF PRESENT ILLNESS: Erin Dyson is a 68 year old female, There [...] Take 1 tab (more content not included)... [facility] 10-05-2023 Miscellaneous Notes TC to pt, scheduled October [id number] with Danni Gurrola. Results faxed to PCP per request. Radha Manning LPN Please get pt sooner appt with AGUSTÍN BOWEN or MARYANN MONTANO to go over results. Thank you, Ozzie Robertson MD Pt calling stating she had MRI done today for Dr Robertson. Pt is wanting to have copy of MRI results also sent to her pcp Dr Rajat Cummins. Saw Higuera LPN documented in this encounter [facility] 10-04-2023 History of Presen t illness Narrative [...] PERIPHERAL IV DATA: Not applicable SIGNED BY: KACY Young) October 04, 2023 1:09 PM documented in this encounter [facility] 10-04-2023 Note HNO ID: [id number] Author: Keryr Beltre RT(Joyce) Service: ? Author Type: Technologist Type: Progress [...] IV DATA: Not applicable SIGNED BY: RT Hannah(R) October 04, 2023 1:09 PM [facility] 2023 Note HNO ID: [id number] Author: Ozzie Robertson Jr., MD Service: ? [...] prior head imaging. MODIFIED MOCA: Immediate Recall: 5/5 Repeat numbers: 2/2 Repeat sentence: 2/2 Serial 7s: 100-97 0/3 Abstract: 12 Orientation: 05/03 Namin/3 Words being with 1 minute: iiiii iiii 0/1 A tap: 11/28 Delayed recall: 2 (4/5 with cues) Cube draw: 11/28 Clock [...] to finger rub (more content not included)... [facility] 2023 History of Presen t illness Narrative [...] MODIFIED MOCA: Immediate Recall: 04/01 Repeat numbers: 12/30 Repeat sentence: 12/30 Serial 7s: 100-97 0 Abstract: 11/29 Orientation: 05/03 Namin/3 Words being with 1 minute: iiiii iiii 0 A tap: 11/28 Delayed recall: 01/02 (/ with cues) Cube draw: 11/28 Clock draw: [...] which included preparing to see the patient, [id number] patient care, completing clinical documentation, obtaining and/or reviewing separately obtained history, performing a medically appropriate examination, counseling and educating the patient/family/caregiver, and ordering medications, tests, or procedures. There is no data to display for this encounter documented in this encounter [facility] 2023 Note HNO ID: [id number] Author: Radha Manning LPN Service: ? Author Type: LICENSED NURSE Type: Progress Notes Filed: 2023 12:17 PM Note Text: There is no data to display for this encounter [facility] 06-08-2023 Miscellaneous Notes Patient returned call, [...] and works 4 days a week. Charisse Ramirez, RN Tc to pt with no answer. Left VM to return call to gather more information about her upcoming appointment for memory loss. Radha Manning LPN Pt has upcoming appt on July [address] Robertson for memory loss and memory problems. No referral in chart or related information in chart. Radha Manning LPN documented in this encounter [facility] Evaluation note Diagnosis Memory loss- Primary Cognitive decline Unspecified persistent mental disorders due to conditions classified elsewhere [facility] Diagnosis Memory loss Cognitive decline Unspecified persistent mental disorders due to conditions classified elsewhere [facility] Diagnosis Cognitive decline- Primary Unspecified persistent mental disorders due to conditions classified elsewhere Memory loss [facility] Diagnosis Cognitive decline- Primary Unspecified persistent mental disorders due to conditions classified elsewhere Memory loss [facility] Name Dates Details How to Access Health Informa tion Online using Patient Portal and 3rd [employer] Apps Indication:Non-smoker Start:08-Dec-2020 Instruction Type:Patient Education [...] Informa tion Online using Patient Portal and [employer] Apps Indication:Non-smoker Start:08-Dec-2020 Instruction Type:Patient Education Patient [...] tion Online using Patient Portal and [employer]rd [employer] Apps Indication:Non-smoker Start:07-May-2021 Instruction Type:Patient Education Patient Instructions Indication:Non-smoker Start:07-May-2021 Instruction Type:Provider Instructions for Treatment How to Access Health Informa tion Online using Patient Portal and [employer] Apps Indication:Non-smoker Start:08-Dec-2020 Instruction Type:Patient Education Patient [...] tion Online using Patient Portal and [employer]rd [employer] Apps Indication:Chest pain Start:09-Jun-2021 Instruction Type:Patient Education How to Access Health Informa tion Online using Patient Portal and [employer] Apps Indication:Non-smoker Start:08-Dec-2020 Instruction Type:Patient Education Patient [...] tion Online using Patient Portal and [employer]rd [employer] Apps Indication:Chest pain Start:09-Jun-2021 Instruction Type:Patient Education How to Access Health Informa tion Online using Patient Portal and [employer] Apps Indication:Non-smoker Start:08-Dec-2020 Instruction Type:Patient Education Patient [...] tion Online using Patient Portal and [employer]rd [employer] Apps Indication:Chest pain Start:09-Jun-2021 Instruction Type:Patient Education How to Access Health Informa tion Online using Patient Portal and [employer]rd [employer] Apps Indication:Non-smoker Start:08-Dec-2020 Instruction Type:Patient Education [...] tion Online using Patient Portal and [employer]rd [employer] Apps Indication:Non-smoker Start:14-Jul-2021 Instruction Type:Patient Education Patient Instructions Indication:Chest pain Start:09-Jun-2021 Instruction Type:Provider Instructions for Treatment How to Access Health Informa tion Online using Patient Portal and [employer]rd [employer] Apps Indication:Chest pain Start:09-Jun-2021 Instruction Type:Patient Education How to Access Health Informa tion Online using Patient Portal and [employer]rd [employer] Apps Indication:Non-smoker Start:08-Dec-2020 Instruction Type:Patient Education [...] tion Online using Patient Portal and [employer]rd [employer] Apps Indication:Non-smoker Start:14-Jul-2021 Instruction Type:Patient Education Patient Instructions Indication:Chest pain Start:09-Jun-2021 Instruction Type:Provider Instructions for Treatment How to Access Health Informa tion Online using Patient Portal and [employer]rd [employer] Apps Indication:Chest pain Start:09-Jun-2021 Instruction Type:Patient Education How to Access Health Informa tion Online using Patient Portal and [employer]rd [employer] Apps Indication:Non-smoker Start:08-Dec-2020 Instruction Type:Patient Education [...] tion Online using Patient Portal and [employer]rd [employer] Apps Indication:Non-smoker Start:14-Jul-2021 Instruction Type:Patient Education Patient Instructions Indication:Chest pain Start:09-Jun-2021 Instruction Type:Provider Instructions for Treatment How to Access Health Informa tion Online using Patient Portal and [employer]rd [employer] Apps Indication:Chest pain Start:09-Jun-2021 Instruction Type:Patient Education How to Access Health Informa tion Online using Patient Portal and [employer]rd [employer] Apps Indication:Non-smoker Start:08-Dec-2020 Instruction Type:Patient Education [...] tion Online using Patient Portal and [employer]rd [employer] Apps Indication:Non-smoker Start:14-Jul-2021 Instruction Type:Patient Education Patient Instructions Indication:Chest pain Start:09-Jun-2021 Instruction Type:Provider Instructions for Treatment How to Access Health Informa tion Online using Patient Portal and [employer]rd [employer] Apps Indication:Chest pain Start:09-Jun-2021 Instruction Type:Patient Education How to Access Health Informa tion Online using Patient Portal and [employer] Apps Indication:Non-smoker Start:08-Dec-2020 Instruction Type:Patient Education [...] tion Online using Patient Portal and [employer]rd [employer] Apps Indication:Hyperlipidemia Start:29-Dec-2021 Instruction Type:Patient Education Patient Instructions Indication:Non-smoker Start:14-Jul-2021 Instruction Type:Provider Instructions for Treatment How to Access Health Informa tion Online using Patient Portal and [employer]rd [employer] Apps Indication:Non-smoker Start:14-Jul-2021 Instruction Type:Patient Education Patient Instructions Indication:Chest pain Start:09-Jun-2021 Instruction Type:Provider Instructions for Treatment How to Access Health Informa tion Online using Patient Portal and [employer]rd [employer] Apps Indication:Chest pain Start:09-Jun-2021 Instruction Type:Patient Education How to Access Health Informa tion Online using Patient Portal and [employer]rd [employer] Apps Indication:Non-smoker Start:08-Dec-2020 Instruction Type:Patient Education [...] tion Online using Patient Portal and [employer]rd [employer] Apps Indication:Hyperlipidemia Start:29-Dec-2021 Instruction Type:Patient Education Patient Instructions Indication:Non-smoker Start:14-Jul-2021 Instruction Type:Provider Instructions for Treatment How to Access Health Informa tion Online using Patient Portal and [employer]rd [employer] Apps Indication:Non-smoker Start:14-Jul-2021 Instruction Type:Patient Education Patient Instructions Indication:Chest pain Start:09-Jun-2021 Instruction Type:Provider Instructions for Treatment How to Access Health Informa tion Online using Patient Portal and [employer]rd [employer] Apps Indication:Chest pain Start:09-Jun-2021 Instruction Type:Patient Education How to Access Health Informa tion Online using Patient Portal and [employer] Apps Indication:Non-smoker Start:08-Dec-2020 Instruction Type:Patient Education [...] tion Online using Patient Portal and [employer]rd [employer] Apps Indication:Unspecified Diagnosis Start:28-Apr-2022 Instruction Type:Patient Education Patient Instructions Indication:Hyperlipidemia Start:29-Dec-2021 Instruction Type:Provider Instructions for Treatment How to Access Health Informa tion Online using Patient Portal and [employer]rd [employer] Apps Indication:Hyperlipidemia Start:29-Dec-2021 Instruction Type:Patient Education Patient Instructions Indication:Non-smoker Start:14-Jul-2021 Instruction Type:Provider Instructions for Treatment How to Access Health Informa tion Online using Patient Portal and [employer] Apps Indication:Non-smoker Start:14-Jul-2021 Instruction Type:Patient Education Patient Instructions Indication:Chest pain Start:09-Jun-2021 Instruction Type:Provider Instructions for Treatment How to Access Health Informa tion Online using Patient Portal and [employer] Apps Indication:Chest pain Start:09-Jun-2021 Instruction Type:Patient Education How to Access Health Informa tion Online using Patient Portal and [employer] Apps Indication:Non-smoker Start:08-Dec-2020 Instruction Type:Patient Education [...] tion Online using Patient Portal and [employer] Apps Indication:COVID Start:28-Apr-2022 Instruction Type:Patient Education Patient Instructions Indication:Hyperlipidemia Start:29-Dec-2021 Instruction Type:Provider Instructions for Treatment How to Access Health Informa tion Online using Patient Portal and [employer] Apps Indication:Hyperlipidemia Start:29-Dec-2021 Instruction Type:Patient Education Patient Instructions Indication:Non-smoker Start:14-Jul-2021 Instruction Type:Provider Instructions for Treatment How to Access Health Informa tion Online using Patient Portal and [employer] Apps Indication:Non-smoker Start:14-Jul-2021 Instruction Type:Patient Education Patient Instructions Indication:Chest pain Start:09-Jun-2021 Instruction Type:Provider Instructions for Treatment How to Access Health Informa tion Online using Patient Portal and [employer] Apps Indication:Chest pain Start:09-Jun-2021 Instruction Type:Patient Education How to Access Health Informa tion Online using Patient Portal and [employer] Apps Indication:Non-smoker Start:08-Dec-2020 Instruction Type:Patient Education [...] tion Online using Patient Portal and [employer] Apps Indication:BMI 24.0-24.9, adult Start:09-Jul-2022 Instruction Type:Patient Education Patient Instructions Indication:COVID Start:28-Apr-2022 Instruction Type:Provider Instructions for Treatment How to Access Health Informa tion Online using Patient Portal and [employer]rd [employer] Apps Indication:COVID Start:28-Apr-2022 Instruction Type:Patient Education Patient Instructions Indication:Hyperlipidemia Start:29-Dec-2021 Instruction Type:Provider Instructions for Treatment How to Access Health Informa tion Online using Patient Portal and [employer]rd [employer] Apps Indication:Hyperlipidemia Start:29-Dec-2021 Instruction Type:Patient Education Patient Instructions Indication:Non-smoker Start:14-Jul-2021 Instruction Type:Provider Instructions for Treatment How to Access Health Informa tion Online using Patient Portal and [employer] Apps Indication:Non-smoker Start:14-Jul-2021 Instruction Type:Patient Education Patient Instructions Indication:Chest pain Start:09-Jun-2021 Instruction Type:Provider Instructions for Treatment How to Access Health Informa tion Online using Patient Portal and [employer]rd [employer] Apps Indication:Chest pain Start:09-Jun-2021 Instruction Type:Patient Education How to Access Health Informa tion Online using Patient Portal and [employer]rd [employer] Apps Indication:Non-smoker Start:08-Dec-2020 Instruction Type:Patient Education [...] tion Online using Patient Portal and [employer]rd [employer] Apps Indication:BMI 24.0-24.9, adult Start:09-Jul-2022 Instruction Type:Patient Education Patient Instructions Indication:COVID Start:28-Apr-2022 Instruction Type:Provider Instructions for Treatment How to Access Health Informa tion Online using Patient Portal and [employer]rd [employer] Apps Indication:COVID Start:28-Apr-2022 Instruction Type:Patient Education Patient Instructions Indication:Hyperlipidemia Start:29-Dec-2021 Instruction Type:Provider Instructions for Treatment How to Access Health Informa tion Online using Patient Portal and [employer]rd [employer] Apps Indication:Hyperlipidemia Start:29-Dec-2021 Instruction Type:Patient Education Patient Instructions Indication:Non-smoker Start:14-Jul-2021 Instruction Type:Provider Instructions for Treatment How to Access Health Informa tion Online using Patient Portal and [employer]rd [employer] Apps Indication:Non-smoker Start:14-Jul-2021 Instruction Type:Patient Education Patient Instructions Indication:Chest pain Start:09-Jun-2021 Instruction Type:Provider Instructions for Treatment How to Access Health Informa tion Online using Patient Portal and [employer]rd [employer] Apps Indication:Chest pain Start:09-Jun-2021 Instruction Type:Patient Education How to Access Health Informa tion Online using Patient Portal and [employer]rd [employer] Apps Indication:Non-smoker Start:08-Dec-2020 Instruction Type:Patient Education [...] tion Online using Patient Portal and [employer]rd [employer] Apps Indication:Non-smoker Start:11-Jan-2023 Instruction Type:Patient Education Patient Instructions Indication:BMI 24.0-24.9, adult Start:09-Jul-2022 Instruction Type:Provider Instructions for Treatment How to Access Health Informa tion Online using Patient Portal and [employer]rd [employer] Apps Indication:BMI 24.0-24.9, adult Start:09-Jul-2022 Instruction Type:Patient Education Patient Instructions Indication:COVID Start:28-Apr-2022 Instruction Type:Provider Instructions for Treatment How to Access Health Informa tion Online using Patient Portal and [employer]rd [employer] Apps Indication:COVID Start:28-Apr-2022 Instruction Type:Patient Education Patient Instructions Indication:Hyperlipidemia Start:29-Dec-2021 Instruction Type:Provider Instructions for Treatment How to Access Health Informa tion Online using Patient Portal and [employer]rd [employer] Apps Indication:Hyperlipidemia Start:29-Dec-2021 Instruction Type:Patient Education Patient Instructions Indication:Non-smoker Start:14-Jul-2021 Instruction Type:Provider Instructions for Treatment How to Access Health Informa tion Online using Patient Portal and [employer]rd [employer] Apps Indication:Non-smoker Start:14-Jul-2021 Instruction Type:Patient Education Patient Instructions Indication:Chest pain Start:09-Jun-2021 Instruction Type:Provider Instructions for Treatment How to Access Health Informa tion Online using Patient Portal and [employer]rd [employer] Apps Indication:Chest pain Start:09-Jun-2021 Instruction Type:Patient Education How to Access Health Informa tion Online using Patient Portal and [employer]rd [employer] Apps Indication:Non-smoker Start:08-Dec-2020 Instruction Type:Patient Education [...] tion Online using Patient Portal and [employer]rd [employer] Apps Indication:Non-smoker Start:11-Jan-2023 Instruction Type:Patient Education Patient Instructions Indication:BMI 24.0-24.9, adult Start:09-Jul-2022 Instruction Type:Provider Instructions for Treatment How to Access Health Informa tion Online using Patient Portal and [employer]rd [employer] Apps Indication:BMI 24.0-24.9, adult Start:09-Jul-2022 Instruction Type:Patient Education Patient Instructions Indication:COVID Start:28-Apr-2022 Instruction Type:Provider Instructions for Treatment How to Access Health Informa tion Online using Patient Portal and [employer]rd [employer] Apps Indication:COVID Start:28-Apr-2022 Instruction Type:Patient Education Patient Instructions Indication:Hyperlipidemia Start:29-Dec-2021 Instruction Type:Provider Instructions for Treatment How to Access Health Informa tion Online using Patient Portal and [employer]rd [employer] Apps Indication:Hyperlipidemia Start:29-Dec-2021 Instruction Type:Patient Education Patient Instructions Indication:Non-smoker Start:14-Jul-2021 Instruction Type:Provider Instructions for Treatment How to Access Health Informa tion Online using Patient Portal and [employer]rd [employer] Apps Indication:Non-smoker Start:14-Jul-2021 Instruction Type:Patient Education Patient Instructions Indication:Chest pain Start:09-Jun-2021 Instruction Type:Provider Instructions for Treatment How to Access Health Informa tion Online using Patient Portal and [employer]rd [employer] Apps Indication:Chest pain Start:09-Jun-2021 Instruction Type:Patient Education How to Access Health Informa tion Online using Patient Portal and [employer]rd [employer] Apps Indication:Non-smoker Start:08-Dec-2020 Instruction Type:Patient Education [...] Informa tion Online using Patient Portal and [employer] Apps Indication:Left shoulder pain Start:12-Jul-2023 Instruction Type:Patient Education Patient Instructions Indication:Non-smoker Start:11-Jan-2023 Instruction Type:Provider Instructions for Treatment How to Access Health Informa tion Online using Patient Portal and [employer] Apps Indication:Non-smoker Start:11-Jan-2023 Instruction Type:Patient Education Patient Instructions Indication:BMI 24.0-24.9, adult Start:09-Jul-2022 Instruction Type:Provider Instructions for Treatment How to Access Health Informa tion Online using Patient Portal and [employer] Apps Indication:BMI 24.0-24.9, adult Start:09-Jul-2022 Instruction Type:Patient Education Patient Instructions Indication:COVID Start:28-Apr-2022 Instruction Type:Provider Instructions for Treatment How to Access Health Informa tion Online using Patient Portal and [employer] Apps Indication:COVID Start:28-Apr-2022 Instruction Type:Patient Education Patient Instructions Indication:Hyperlipidemia Start:29-Dec-2021 Instruction Type:Provider Instructions for Treatment How to Access Health Informa tion Online using Patient Portal and [employer]rd [employer] Apps Indication:Hyperlipidemia Start:29-Dec-2021 Instruction Type:Patient Education Patient Instructions Indication:Non-smoker Start:14-Jul-2021 Instruction Type:Provider Instructions for Treatment How to Access Health Informa tion Online using Patient Portal and [employer]rd [employer] Apps Indication:Non-smoker Start:14-Jul-2021 Instruction Type:Patient Education Patient Instructions Indication:Chest pain Start:09-Jun-2021 Instruction Type:Provider Instructions for Treatment How to Access Health Informa tion Online using Patient Portal and [employer]rd [employer] Apps Indication:Chest pain Start:09-Jun-2021 Instruction Type:Patient Education How to Access Health Informa tion Online using Patient Portal and [employer]rd [employer] Apps Indication:Non-smoker Start:08-Dec-2020 Instruction Type:Patient Education [...] tion Online using Patient Portal and [employer]rd [employer] Apps Indication:Left shoulder pain Start:12-Jul-2023 Instruction Type:Patient Education Patient Instructions Indication:Non-smoker Start:11-Jan-2023 Instruction Type:Provider Instructions for Treatment How to Access Health Informa tion Online using Patient Portal and [employer]rd [employer] Apps Indication:Non-smoker Start:11-Jan-2023 Instruction Type:Patient Education Patient Instructions Indication:BMI 24.0-24.9, adult Start:09-Jul-2022 Instruction Type:Provider Instructions for Treatment How to Access Health Informa tion Online using Patient Portal and [employer]rd [employer] Apps Indication:BMI 24.0-24.9, adult Start:09-Jul-2022 Instruction Type:Patient Education Patient Instructions Indication:COVID Start:28-Apr-2022 Instruction Type:Provider Instructions for Treatment How to Access Health Informa tion Online using Patient Portal and [employer]rd [employer] Apps Indication:COVID Start:28-Apr-2022 Instruction Type:Patient Education Patient Instructions Indication:Hyperlipidemia Start:29-Dec-2021 Instruction Type:Provider Instructions for Treatment How to Access Health Informa tion Online using Patient Portal and [employer]rd [employer] Apps Indication:Hyperlipidemia Start:29-Dec-2021 Instruction Type:Patient Education Patient Instructions Indication:Non-smoker Start:14-Jul-2021 Instruction Type:Provider Instructions for Treatment How to Access Health Informa tion Online using Patient Portal and [employer]rd [employer] Apps Indication:Non-smoker Start:14-Jul-2021 Instruction Type:Patient Education Patient Instructions Indication:Chest pain Start:09-Jun-2021 Instruction Type:Provider Instructions for Treatment How to Access Health Informa tion Online using Patient Portal and [employer] Apps Indication:Chest pain Start:09-Jun-2021 Instruction Type:Patient Education How to Access Health Informa tion Online using Patient Portal and [employer] Apps Indication:Non-smoker Start:08-Dec-2020 Instruction Type:Patient Education Patient [...] W/O CONTRAST MATERIAL Ozzie Robertson Jr., MD [address] [place] [address] [place] [id number] Referral ID Status Reason Start Date Expiration Date V isits Requested Visits Authorized [id number] Closed Auto-Generate d Referral 09/15/2023 03/13/2024 1 1 [facility] for visit Narrative* Diagnostic Procedure Only (Routine) - Closed Specialty Diagnoses / Procedures Referred By Contac t Referred To Contact MR IMAGING Diagnoses Memory loss Cognitive decline Procedures MRI BRAIN WO IVCON MRI BRAIN BRAIN STEM W/O CONTRAST MATERIAL Ozzie Robertson Jr., MD [address] [facility] [address] [place] [address] [place] [id number] Referral ID Status Reason Start Date Expiration Date V isits Requested Visits Authorized [id number] Closed Auto-Generate d Referral 09/15/2023 03/13/2024 1 1 [facility] Family History Unknown Family Member Name Dates Details Father [...] Informa tion Online using Patient Portal and [employer] Apps Indication:Non-smoker Start:08-Dec-2020 Instruction Type:Patient Education [...] Informa tion Online using Patient Portal and [employer] Apps Indication:Non-smoker Start:08-Dec-2020 Instruction Type:Patient Education Patient [...] W/O CONTRAST MATERIAL Ozzie Robertson Jr., MD [address] [address] [place] [id number] Referral ID Status Reason Start Date Expiration Date Visits Requested Visits Authorized [id number] Pending Review Auto-Generat ed Referral 2023 09/17/2024 1 1 Additional Source Comments INFORMATION SOURCE (unrecogn ized section and content) DATE CREATED AUTHOR 01/11/2023 [facility] DATE CREATED AUTHOR AUTHOR'S ORGANIZ ATION 05/07/2024 [facility] Source Comments (unrecognize d section and content) In the event this informatio n is protected by the Federal Confidentiality of Alcohol and Drug Abuse Patient Records regulations: The Federal rules restrict any use of the information to criminally investigate or prosecute any alcohol or drug abuse patient.[facility] the event this information is protected by the Federal Confidentiality of Alcohol and Drug Abuse Patient Records regulations: The Federal rules restrict any use of the information to criminally investigate or prosecute any alcohol or drug abuse patient.[facility] the event this information is protected by the Federal Confidentiality of Alcohol and Drug Abuse Patient Records regulations: The Federal rules restrict any use of the information to criminally investigate or prosecute any alcohol or drug abuse patient.[facility] the event this information is protected by the Federal Confidentiality of Alcohol and Drug Abuse Patient Records regulations: The Federal rules restrict any use of the information to criminally investigate or prosecute any alcohol or drug abuse patient.[facility] the event this information is protected by the Federal Confidentiality of Alcohol and Drug Abuse Patient Records regulations: The Federal rules restrict any use of the information to criminally investigate or prosecute any alcohol or drug abuse patient.[facility] the event this information is protected by the Federal Confidentiality of Alcohol and Drug Abuse Patient Records regulations: The Federal rules restrict any use of the information to criminally investigate or prosecute any alcohol or drug abuse patient.[facility] the event this information is protected by the Federal Confidentiality of Alcohol and Drug Abuse Patient Records regulations: The Federal rules restrict any use of the information to criminally investigate or prosecute any alcohol or drug abuse patient.[facility] the event this information is protected by the Federal Confidentiality of Alcohol and Drug Abuse Patient Records regulations: The Federal rules restrict any use of the information to criminally investigate or prosecute any alcohol or drug abuse patient.[facility] the event this information is protected by the Federal Confidentiality of Alcohol and Drug Abuse Patient Records regulations: The Federal rules restrict any use of the information to criminally investigate or prosecute any alcohol or drug abuse patient.[facility] the event this information is protected by the Federal Confidentiality of Alcohol and Drug Abuse Patient Records regulations: The Federal rules restrict any use of the information to criminally investigate or prosecute any alcohol or drug abuse patient.[facility] the event this information is protected by the Federal Confidentiality of Alcohol and Drug Abuse Patient Records regulations: The Federal rules restrict any use of the information to criminally investigate or prosecute any alcohol or drug abuse patient.[facility] Rehabilitation[facility] the event this information is protected by the Federal Confidentiality of Alcohol and Drug Abuse Patient Records regulations: The Federal rules restrict any use of the information to criminally investigate or prosecute any alcohol or drug abuse patient.[facility] Reason for Visit (unrecogniz ed section and content) Reason Comments Appointment Reason Comments New Patient Evaluation Reason Comments Results Reason Comments prior authorization Reason Comments Patient Update Patient Question Reason Comments Follow Up Pt reported d/c Name nda x2 daily, currently taking once in the AM. Reason Comments Patient Question Reason Onset Date Comments Refill Request 04/06/2024 Reason Comments Follow Up Follow Up. Reason Onset Date Comments Refill Request 07/31/2024 Care Teams (unrecognized sec tion and content) Falsework Builder Relationship Specialty Start Date End Date Bear Pozo MD PCP - General Internal Medicine 07/14/11 Falsework Builder Relationship Specialty Start Date End Date Bear Pozo MD PCP - General Internal Medicine 07/14/11 Falsework Builder Relationship Specialty Start Date End Date Rajat Cummins DO [address] [facility] [address] [place] [address] PCP - General Internal Medicine 10/04/23 Falsework Builder Relationship Specialty Start Date End Date Rajat Cummins DO [address] [facility] [address] [place] [address] PCP - General Internal Medicine 10/04/23 Falsework Builder Relationship Specialty Start Date End Date Ryan Cumminsa John DO [address] [facility] [address] [place] [address] PCP - General Internal Medicine 10/04/23 Falsework Builder Relationship Specialty Start Date End Date Placido Rajat A DO [address] [facility] [address] [place] [address] PCP - General Internal Medicine 10/04/23 Falsework Builder Relationship Specialty Start Date End Date Rajat Cummins DO [address] [facility] [address] [place], [place] [id number] PCP - General Internal Medicine 10/04/23 Falsework Builder Relationship Specialty Start Date End Date Rajat Cummins DO [address] [facility] [address] [place], [place] [id number] PCP - General Internal Medicine 10/04/23 FOR [...] BE BASED ON THE PRIMARY CLINICAL RECORDS. [facility]. provides no warranty or guarantee of the accuracy or completeness of information in this document.
[2024-09-20 06:47] LABS: Absolute Neutrophil Count 2.6 X10^3/uL (2.0-7.7); Basophil# 0.04 X10^3/uL; Basophil% 0.9 % (0-1); Eosinophil# 0.16 X10^3/uL; Eosinophils% 3.6 % (0-5); Hematocrit 41.2 % (37-47); Hemoglobin 13.8 g/dL (12.0-15.0); Lymphocyte % 31.5 % (19-41); Mean Corp Hgb Conc 33.5 g/dL (32-36); Mean Corpuscular Volume 92.6 fL (81-99); Mean Platelet Vol. 8.9 fl (6.2-12.0); Monocyte# 0.28 X10^3/uL; Monocyte% 6.3 % (0-10); NRBC Flagged by Analyzer 0 % (0-5); Neutrophil # 2.55 X10^3/uL (2.7-7.7); Neutrophil % 57.5 % (47-70); Platelet Count 204 K/mm3 (150-450); RBC Distribution Width CV 12.5 % (11.6-14.6); RBC Distribution Width SD 42.6 fl (35.1-43.9); Red Blood Count 4.45 M/mm3 (4.2-5.4); White Blood Count 4.4 K/mm3 (4.4-11.0)
[2024-09-20 08:22] LABS: Vitamin B12 466 pg/mL (211-911); Vitamin D,25 Hydroxy 44.3 ng/mL
[2024-09-20 18:11] LABS: ALB/GLOB Ratio 1.1 RATIO (0.9-2.4); AST(SGOT) 24 U/L (15-37); Alanine Aminotransfer ALT/SGPT 23 U/L (13-56); Alkaline Phosphatase 60 U/L (45-117); Anion Gap 6 (5-15); BUN 14 mg/dL (7-18); BUN/Creat Ratio 18.7 RATIO (10-20); Chloride 108 mmol/L (98-107); Cholesterol 208 mg/dL (200); Creatinine, Serum 0.75 mg/dL (0.55-1.02); EST Glomerular Filtration Rate 81 mL/min (>60); Est Glom Filt Rate - Afr Amer 98 mL/min (>60); Globulin 3.5 g/dL (2.2-4.2); Glucose 102 mg/dL (74-106); High Density Lipoprotein 93 mg/dL; Protein, Total 7.5 g/dL (6.4-8.2); Sodium Level 138 mmol/L (136-145); Triglycerides 47 mg/dL; Very Low Density Lipoprotein 9 mg/dL (5-40)
== END | disposition home or self-care (01) ==
PROVIDERS: PCP Internal Medicine; Referring Provider Internal Medicine; Visit Provider Internal Medicine
DX: E78.5 Hyperlipidemia, unspecified (principal); F03.90 Unspecified dementia, unspecified severity, without behavioral disturbance, psychotic disturbance, mood disturbance, and anxiety; E55.9 Vitamin D deficiency, unspecified
CPT/HCPCS: 36415; 80053; 80061; 82306; 82607; 82746; 85025

== ENCOUNTER → 2025-01-17 | Outpatient (CLI) | payer OTHER, MEDICARE, SELFPAY ==
[2025-01-17 06:17] LABS: Absolute Lymphocyte Count 1.18 X10^3/uL (0.83-4.51); Absolute Neutrophil Count 2.9 X10^3/uL (2.0-7.7); Basophil# 0.04 X10^3/uL; Basophil% 0.9 % (0-1); Eosinophil# 0.15 X10^3/uL; Eosinophils% 3.3 % (0-5); Hematocrit 41.6 % (37-47); Hemoglobin 13.8 g/dL (12.0-15.0); Lymphocyte # 1.18 X10^3/ul (0.83-4.51); Lymphocyte % 25.7 % (19-41); Mean Corp Hgb Conc 33.2 g/dL (32-36); Mean Corpuscular Hgb 31.2 pg (27.0-32.0); Mean Corpuscular Volume 93.9 fL (81-99); Mean Platelet Vol. 8.8 fl (6.2-12.0); Monocyte# 0.31 X10^3/uL; Monocyte% 6.8 % (0-10); NRBC Flagged by Analyzer 0 % (0-5); Neutrophil % 63.1 % (47-70); Platelet Count 197 K/mm3 (150-450); RBC Distribution Width CV 13.2 % (11.6-14.6); RBC Distribution Width SD 45.5 fl (35.1-43.9); Red Blood Count 4.43 M/mm3 (4.2-5.4); White Blood Count 4.6 K/mm3 (4.4-11.0)
[2025-01-17 06:53] LABS: ALB/GLOB Ratio 1.1 RATIO (0.9-2.4); AST(SGOT) 25 U/L (15-37); Alanine Aminotransfer ALT/SGPT 23 U/L (13-56); Albumin, Serum 3.8 g/dL (3.2-5.0); Alkaline Phosphatase 53 U/L (45-117); Anion Gap 5 (5-15); BUN 11 mg/dL (7-18); BUN/Creat Ratio 13.8 RATIO (10-20); Calcium,Total 9.9 mg/dL (8.5-10.1); Chloride 107 mmol/L (98-107); Cholesterol 211 mg/dL (200); EST Glomerular Filtration Rate 76 mL/min (>60); Est Glom Filt Rate - Afr Amer 92 mL/min (>60); Globulin 3.4 g/dL (2.2-4.2); Glucose 93 mg/dL (74-106); High Density Lipoprotein 93 mg/dL; Potassium 4.3 mmol/L (3.5-5.1); Protein, Total 7.2 g/dL (6.4-8.2); Sodium Level 140 mmol/L (136-145); Triglycerides 60 mg/dL; Very Low Density Lipoprotein 12 mg/dL (5-40)
[2025-01-17 14:38] LABS: Vitamin B12 702 pg/mL (211-911); Vitamin D,25 Hydroxy 54.9 ng/mL
== END | disposition home or self-care (01) ==
LOC: LAB 06:01
PROVIDERS: PCP Internal Medicine; Referring Provider Internal Medicine; Visit Provider Internal Medicine
DX: E78.5 Hyperlipidemia, unspecified (principal); F03.90 Unspecified dementia, unspecified severity, without behavioral disturbance, psychotic disturbance, mood disturbance, and anxiety; E55.9 Vitamin D deficiency, unspecified
CPT/HCPCS: 36415; 80053; 80061; 82306; 82607; 82746; 85025

== ENCOUNTER → 2025-03-13 | Outpatient (CLI) | payer OTHER, MEDICARE, SELFPAY ==
--- NOTE | 2025-03-13 12:51 | MRI_ITS ---
EXAM: MRI right shoulder without IV contrast CLINICAL HISTORY: Pain COMPARISON: None TECHNIQUE: Multisequence multiplanar MR images of the right shoulder were obtained without the administration of intravenous contrast. Imaging sequences were performed to best display suspected pathology. FINDINGS: Near full-thickness near full width tear of the supraspinatus tendon with sparing of a few bursal surface fibers. Supraspinatus tendon retraction to the level of the superomedial humeral head measuring a proximally 3.3 cm from its distal insertion. Mild infraspinatus tendinopathy with superimposed 50% partial-thickness articular tearing at its critical zone. Mild subscapularis tendinopathy without tear. Mild supraspinatus and infraspinatus muscle atrophy. Intact long head biceps tendon. Normal glenohumeral joint alignment. No displaced labral tear or paralabral cysts. No focal full-thickness chondral defects. No significant glenohumeral joint effusion. Moderate acromioclavicular joint osteoarthritis including articular surface irregularity, inferior marginal osteophytes measuring up to 4 mm, capsular hypertrophy and subcortical cysts/low-level edema. Inferior acromioclavicular joint osteophytes demonstrate mass effect on the supraspinatus myotendinous junction. Negative for acute fracture or marrow replacement. Small enthesopathic cyst in the greater humeral tuberosity. Mild degenerative cysts about the acromioclavicular joint. Small amount of fluid throughout the subacromial/subdeltoid bursa. MRI/Upper Ext Joint Only(Routine) IMPRESSION: 1. Near full-thickness near full width tear of the supraspinatus tendon as abov e. 2. Mild infraspinatus tendinopathy with superimposed partial-thickness articula r tearing. 3. Moderate acromioclavicular joint osteoarthritis. 4. Small amount of fluid in the subacromial/subdeltoid bursa. Reading Location: [facility]
== END | disposition home or self-care (01) ==
PROVIDERS: PCP Internal Medicine; Referring Provider Internal Medicine; Visit Provider Internal Medicine
DX: M25.511 Pain in right shoulder (principal)
CPT/HCPCS: 73221

== ENCOUNTER → 2025-05-02 | Outpatient (CLI) | payer OTHER, MEDICARE, SELFPAY ==
--- OUTSIDE RECORDS SUMMARY | 2025-05-02 06:12 | XMS RPT_ITS | CCD ---
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 Multisequence multiplanar MR images of the right shoulder were obtained without the administration of intravenous contrast. Imaging sequences were performed to best display suspected pathology. FINDINGS: Near full-thickness near full width tear of the supraspinatus tendon with sparing of a few bursal surface fibers. Supraspinatus tendon retraction to the level of the superomedial humeral head measuring a proximally 3.3 cm from its distal insertion. Mild infraspinatus tendinopathy with superimposed 50% partial-thickness articular tearing at its critical zone. Mild subscapularis tendinopathy without tear. Mild supraspinatus and infraspinatus muscle atrophy. Intact long head biceps tendon. Normal glenohumeral joint alignment. No displaced labral tear or paralabral cysts. No focal full- thickness chondral defects. No significant glenohumeral joint effusion. Moderate acromioclavicular joint osteoarthritis including articular surface irregularity, inferior marginal osteophytes measuring up to 4 mm, capsular hypertrophy and subcortical cysts/low-level edema. Inferior acromioclavicular joint osteophytes demonstrate mass effect on the supraspinatus myotendinous junction. Negative for acute fracture or marrow replacement. Small enthesopathic cyst in the greater humeral tuberosity. Mild degenerative cysts about the acromioclavicular joint. Small amount of fluid throughout the subacromial/subdeltoi d bursa. MRI/Upper Ext Joint Only(Routine) IMPRESSION: 1. Near full-thickness near full width tear of the supraspinatus tendon as above. 2. Mild infraspinatus tendinopathy with superimposed partial-thickness articular tearing. 3. Moderate acromioclavicular joint osteoarthritis. 4. Small amount of fluid in the subacromial/subdeltoi d bursa. Reading Location: [facility] CC: Dr. Rajat Norton DO Professional Nurse: Signed [facility] CNOVon 02-12-2025 CNOV Office Visit (NEMOWS ) ERIN DYSON ([id number]) 1955 F Date Time Provider Department 02/12/25 3:45 PM DANNI GURROLA During your visit today, we recorded the following information about you: Pulse Blood pressure 62/minute 146/91 Nohemy Dudley LPN 02/12/2025 4:07 PM Signed Danni Gurroal PA-C 02/12/2025 4:07 PM Signed [facility] for General Neurology Name: Erin Dyson Age: [age] year old Gender: female Primary Care Provider: Rajat Norton DO Assessment/Plan: 02/12/2025 - General Neurology, Danni Gurrola PA-C ASSESSMENT ASSESSMENT/PLAN: 1. Dementia without behavioral disturbance, psychotic disturbance, mood disturbance, or anxiety, unspecified dementia severity, unspecified dementia type (HCC) - ICD9: 294.20, ICD10: F03.90 (primary diagnosis) 2. Cognitive decline - ICD9: 294.9, ICD10: R41.89 3. Memory loss - ICD9: 780.93, ICD10: R41.3 Patient reporting overall cognition is stable primary concern today is to discuss medications. Has been on Namenda 5 mg twice daily for over a year and has been tolerating it well until recently. She is concerned that it might be contributing to high blood pressures. However, when she was on it a year ago her blood pressures were normal. States that she did stop it for 2 weeks and felt her blood pressures returned to normal and then restarted it and her blood pressure was high today. Discussed that can contribute to blood pressure issues but as she has been on this medication for over a year and blood pressure is now more recently an issue, encouraged her to follow-up with primary care to look for other causes of this issue would like to continue the medication. I suggest taking a lot of salts and would like to try conservative therapy and remain on the medication at this time. Deferring any repeat MoCA today. Does have an a follow-up appointment with Dr. Robertson scheduled for April. Of note, states she had an EKG done at [facility] but is unsure how long ago. There was some initial desire to start Aricept as her sister was on this medication but no longer wants to do this. No other new concerns that would warrant additional workup at this time. Danni Gurrola PA-C Encounter Diagnosis ICD-10-CM 1. Dementia without behavioral disturbance, psychotic disturbance, mood disturbance, or anxiety, unspecified dementia severity, unspecified dementia type (HCC) F03.90 2. Cognitive decline R41.89 3. Memory loss R41.3 No follow-ups on file. Chart, labs,and relevant images reviewed. Chief Complaint:Patient presents with: Established Patient: C/o HBP d/t medication Chart Review: 11/02/[address] Robertson ASSESSMENT/PLAN: 1. Cognitive decline - ICD9: 294.9, ICD10: R41.89 (primary diagnosis) 2. Memory loss - ICD9: 780.93, ICD10: R41.3 Overall condition stable. MOCA not performed today, but subjective history suggests no decline in cognitive status since last visit. Reviewed MRI results with patient, with focus being hippocampi and temp lobe size. Given these findings and prior history, along with family history of neurodegenerative process, would continue to recommend Namenda. However, patient not wanting to increase dose from 5mg BID to 10mg BID at this time. Encouraged brain exercises, social interaction. No restrictions at this time. Reviewed with pt SE and ADRs. Discussed prognosis of degenerative processes. Will have patient follow up in 6 months or sooner prn. Ozzie Robertson MD HPI: Last seen on 11/02/[address] Robertson. Doing well, no AE with namenda. No repeat moca, would like to stay at 5mg bid. Last moca was 12/30/23 and was . Messaged in on 01/24/25 noting some concerns with BP. Noting she wanted to switch to aricept from namenda but then changed her mind. Patient comes in today to discuss medication changes. Notes originally she was interested in starting Aricept because her sister is doing well on this but no longer wants to switch. Does note that she has been having higher blood pressures and saw that Namenda can cause this or contribute. Notes that she stopped the Namenda for 2 weeks and felt her blood pressure went back down to normal. Restarted it again and her blood pressure was high today. However, has been on this medication for over a year, no issues with hypertension at that time until recently. Notes that she does take in a lot of salt and has other risk factors for hypertension as well. No other new symptoms or concerns today. 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 Normal [facility] Urgent Care Visit Reporton 0 01-29-2025 Urgent Care Visit Report [facility] [address] , [address] [place] [address] OFFICE VISIT Date of Service: 01/29/25 MR#: [id number] Acct: [id number] Name: ERIN DYSON Rep #: [id number] : 1955 Provider: ANDRÉS Hernandez Age/Sex: 69/F Location: [facility] Status: Signed with Addenda ADDENDUM by Radha Cai on 01/29/25 at 1230 Office Procedure Documentation entered by Radha Cai 01/29/25 12:30: Immunizations Boostrix Tdap 2.5 Lf unit-8 mcg-5 Lf/0.5 mL intramuscular syringe Performing Provider: ANDRÉS Ball Performing Location: [facility] Administered by: Radha Cai on 01/29/25 12:29 Dose Route Admin Location Dispensed Lot Number Expiration Date NDC Man ufacturer 0.5 mL IM Right Deltoid 0.5 mL [id number] 12/22/26 14678-241-70 [employer] VIS Given Date VIS Provided VIS Publication Date 01/29/25 Single Vaccine 21 Eligibility Eligibility Date Funding Source Not Applicable Date cc: * Signed Intake Vital Signs 04/10/24 13:00 01/29/25 11:44 Height 5 ft 5 in 5 ft 5 in BP 134/92 H Blood Pressure Location Rt brachial Position Sitting Respiration 12 Pulse 72 Pulse Source Monitor Temp 99.1 F Temp Source Oral Pulse Oximetry (%) 98 Oxygen Delivery Method room air Intake Visit Reasons: LEFT HAND CAT SCRATCH Chief Complaint: left hand cat scratch Asphalt Tamper Required: No Accompanied by: Self Is patient in pain?: No Allergies No Known Allergies Allergy (Verified 01/29/25 11:41) Medications ???Medication ???Instructions ???Recorded ???Confirmed ???Type cholecalciferol (vitamin D3) 50 2,000 unit PO QDAY 03/07/18 History mcg (2,000 unit) capsule calcium carbonate 600 mg PO DAILY 09/02/20 01/29/25 History zinc gluconate 50 mg tablet 50 mg PO DAILY 12/28/22 01/29/25 H istory ascorbate calcium (vitamin C) 500 500 mg PO DAILY 03/11/23 01/29/25 History mg tablet omega 4-nyl-muj-fish oil 60 mg-90 1 cap PO DAILY 03/11/23 01/29/25 History mg-500 mg capsule (Fish Oil) Have you fallen in the past year?: No [facility] Medical History (Updated 01/29/25 @ 12:25 by Juan BOWEN, PA) Cat scratch of left hand Easy bruising History of stress test Post-menopausal Alcohol use Gastric reflux Non-smoker History of echocardiogram Hemorrhoid Cystocele Surgical History S/P cataract extraction History of Mohs micrographic surgery for skin cancer H/O bilateral salpingo-oophorectomy H/O total vaginal hysterectomy H/O cystoscopy bilateral sacrospinous ligament fixation History of colonoscopy ( 2018) stereotactic biopsy S/P bunionectomy Family History Grandmother Breast cancer Mother Hypertension [...] at home: Yes additional social history: - Fdxm-Yaea-noptvpek 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 No complaints of fever, chills, sweats, lightheadedness/dizzi ness, nausea/vomiting, stating she notes the scratch areas have all scabbed over well without complaints of erythema or warmth or swelling - though trace ecchymosis appreciated same area. Patient unsure of last Td therefore here to have updated, otherwise she has no complaints. ROS Const Constitutional: No other (As above) Exam Const General: cooperative, healthy appearing and no acute distress Nutritional Appearance: average body habitus Orientation: alert and awake Resp Effort Inspection: normal respiratory effort and able to speak in complete sentences Cardio Rate: regular rate Pulses: radial pulses present Skin General: no rashes or lesions noted Trauma: abrasion (x3 to L dorsal hand all w/ appropriate granulation w/o signs of infection) Neuro General: patient alert and patient awake Cognition: normal cognition Speech: speech normal Extrem General: no (more content not included)... Normal [facility] 01-24-2025 [facility] Telephone (NASIRGLADIS) ERIN DYSON ([id number]) 1955 F Date Time Provider Department 01/24/25 OZZIE ROBERTSON JR During your visit today, we recorded the following information about you: Alysha Torres 01/24/2025 3:18 PM Signed Patient calling in trying to get a sooner appt with either Danni Gurrola or Dr. Robertson. Patient states she is having some trouble with her bp and it is concerning her. I added her to the waitlist and she is on the schedule currently with Danni on 02/06/25. She spoke to triage nurse Maureen prior to speaking with me. Please review and advise. Alysha Torres January 24, 2025 3:18 PM Nohemy Dudley LPN 01/24/2025 4:17 PM Signed Called patient, no answer. Left voicemail that there are no sooner appointment. Nohemy Dudley LPN January 24, 2025 4:17 PM Radha Fermin LPN 01/28/2025 4:32 PM Signed TC to pt with no answer. Left VM return call. AUBREE Beal M Robin, GISELE 01/29/2025 1:03 PM Signed Patient returned call and advised per message below there is no sooner appt. Pt states she will keep her appt on 02-12-25 with Tarik Gurrola. Allergies As of Date: 01/24/2025 (No Known Allergies) Date Reviewed: 11/02/2024 Reviewed by: Ozzie Robertson Jr., MD - Fully Assessed Reason for Visit: Patient Question [7847] Patient Update [1234] Prescriptions as of 01/29/2025 - memantine (NAMENDA) 5 mg tablet Take 1 tablet by mouth two times a day. - ascorbic acid, vitamin C, (VITAMIN C) 250 mg tablet Take 250 mg by mouth once daily. - cholecalciferol, vitamin D3, (VITAMIN D-3) 10 mcg (400 unit) cap Take 400 Units by mouth once daily. - ZINC ACETATE ORAL Take 1 tablet by mouth once daily. - calcium carbonate (CALCIUM 500 ORAL) Take 1 tablet by mouth once daily. Problem List As Of Date 01/24/2025 Noted Resolved UNSP ABNORMAL MAMMOGRAM [R92.8] 06/03/2008 Fibrocystic Disease of Breast [N60.19] 08/18/2009 Vaginal wall prolapse without uterine prolapse *04/09/2014 Carpal tunnel syndrome of right wrist [G56.01] 10/11/2023 Diagnosed: 10/11/2023 Osteoarthritis of metacarpophalangeal (MCP) magi*10/11/2023 Diagnosed: 10/11/2023 Dementia without behavioral disturbance (HCC) [*10/11/2023 Encounter Status:Closed by NOHEMY DUDLEY on 01/24/25 Normal [facility] [id number]-AI-[id number] DOrdered By: Frances Norton on 01-17-2025 Vitamin D 25-Hydroxy 54.9 ng/mL [facility] Comment on above: Vitamin D 25(OH) Sta tus Range Deficiency <20 ng/mL (50nmol/L) Insufficiency 20 - 30 ng/mL (50 - 75 nmol/L) Sufficiency 30 - 100 ng/mL (75 - 250 nmol/L) Toxicity >100 ng/mL (>250 nmol/L) Absolute lymphocyte countOrd ered By: Rajat Norton on 01-17-2025 Lymphocytes Auto (Unsp spec) [#/Vol] 1.18 10*3/uL 0.83-4.51 [facility] Absolute neutrophil countOrd ered By: Rajat Fast on 01-17-2025 Neutrophils (Bld) [#/Vol] 2.9 10*3/uL 2.0-7.7 [facility] Albumin to globulin ratioOrd ered By: Rajat Fast on 01-17-2025 Albumin/Globulin [Mass ratio] 1.1 {ratio} 0.9-2.4 [facility] Automated lymphocyte count a s percentage of total leukocytesOrdered By: Rajat Fast on 01-17-2025 Lymphocytes/100 WBC Auto (Unsp spec) 25.7 % 19- [facility] Basophil percentageOrdered B y: Rajat Fast on 01-17-2025 Basophils/100 WBC (Bld) 0.9 % 0-1 [facility] Bilirubin, totalOrdered By: Rajat on 01-17-2025 Bilirubin [Mass/Vol] 0.70 mg/dL 0.20-1.00 [facility] Comment on above: For patients on eltr ombopag therapy, use of Dimension [place] TBIL is not recommended. Blood urea nitrogen (BUN)/cr eatinine ratioOrdered By: Rajat on 01-17-2025 Urea nitrogen/Creatinine [Mass ratio] 13.8 mg/mg 09-16 [facility] CBC W/Diff, Automatedon 12-30 Absolute Lymph 1.18 X10 3/uL Normal 0.83-4.51 [facility] Comment on above: Performed By: #### L 100.0100, L500.4050, L500.4100, L503.0105, L506.1000, L506.0250 ####[facility] [address] [place], [place], [id number] Absolute Neut 2.9 X10 3/uL Normal 2.0-7.7 [facility] Comment on above: Performed By: #### L 100.0100, L500.4050, L500.4100, L503.0105, L506.1000, L506.0250 ####[facility] [address] [place], [address] Basophils/100 WBC (Bld) 0.9 % Normal 0-1 [facility] Comment on above: Performed By: #### L 100.0100, L500.4050, L500.4100, L503.0105, L506.1000, L506.0250 ####[facility] [address] [place], [address] Eosinophils/100 WBC (Bld) 3.3 % Normal 0-5 [facility] Comment on above: Performed By: #### L 100.0100, L500.4050, L500.4100, L503.0105, L506.1000, L506.0250 ####[facility] [address] [place], [address] Erythrocyte distribution width (RBC) [Ratio] 13.2 % Normal 11.6-14.6 [facility] Comment on above: Performed By: #### L 100.0100, L500.4050, L500.4100, L503.0105, L506.1000, L506.0250 ####[facility] [address] [place], [address] Hematocrit (Bld) [Volume fraction] 41.6 % Normal 37-47 [facility] Comment on above: Performed By: #### L 100.0100, L500.4050, L500.4100, L503.0105, L506.1000, L506.0250 ####[facility] [address] [place], [address] Hemoglobin (Bld) [Mass/Vol] 13.8 g/dL Normal 12.0-15.0 [facility] Comment on above: Performed By: #### L 100.0100, L500.4050, L500.4100, L503.0105, L506.1000, L506.0250 ####[facility] [address] [place], [address] IG% 0.200 Normal 0.0-0.9 [facility] Comment on above: Result Comment: IG% - Immature Granulocytes (promyelocytes, myelocytes and metamyelocytes) > 1% indicates that a LEFT SHIFT is Present. Performed By: #### L 100.0100, L500.4050, L500.4100, L503.0105, L506.1000, L506.0250 ####[facility] [address] [place], [address] Lymphocytes/100 WBC (Bld) 25.7 % Normal 19-41 [facility] Comment on above: Performed By: #### L 100.0100, L500.4050, L500.4100, L503.0105, L506.1000, L506.0250 ####[facility] [address] [facility] [place], [address] MCH (RBC) [Entitic mass] 31.2 pg Normal 27.0-32.0 [facility] Comment on above: Performed By: #### L 100.0100, L500.4050, L500.4100, L503.0105, L506.1000, L506.0250 ####[facility] [address] [place], [address] MCHC (RBC) [Mass/Vol] 33.2 g/dL Normal 32-36 [facility] Comment on above: Performed By: #### L 100.0100, L500.4050, L500.4100, L503.0105, L506.1000, L506.0250 ####[facility] [address] [place], [address] MCV (RBC) [Entitic vol] 93.9 fL Normal 81-99 [facility] Comment on above: Performed By: #### L 100.0100, L500.4050, L500.4100, L503.0105, L506.1000, L506.0250 ####[facility] [address] [place], [address] Monocytes/100 WBC (Bld) 6.8 % Normal 0-10 [facility] Comment on above: Performed By: #### L 100.0100, L500.4050, L500.4100, L503.0105, L506.1000, L506.0250 ####[facility] [address] [place], [address] Neutrophils/100 WBC (Bld) 63.1 % Normal 47-70 [facility] Comment on above: Performed By: #### L 100.0100, L500.4050, L500.4100, L503.0105, L506.1000, L506.0250 ####[facility] [address] [place], [address] Nucleated RBC (Bld) [#/Vol] 0 10*3/uL Normal 0-5 [facility] Comment on above: Performed By: #### L 100.0100, L500.4050, L500.4100, L503.0105, L506.1000, L506.0250 ####[facility] [address] [place], [address] Platelet mean volume (Bld) [Entitic vol] 8.8 fL Normal 6.2-12.0 [facility] Comment on above: Performed By: #### L 100.0100, L500.4050, L500.4100, L503.0105, L506.1000, L506.0250 ####[facility] [address] [place], [address] Platelets (Bld) [#/Vol] 197 10*3/uL Normal 150-450 [facility] Comment on above: Performed By: #### L 100.0100, L500.4050, L500.4100, L503.0105, L506.1000, L506.0250 ####[facility] [address] [place], [address] RBC (Bld) [#/Vol] 4.43 10*6/uL Normal 4.2-5.4 [facility] Comment on above: Performed By: #### L 100.0100, L500.4050, L500.4100, L503.0105, L506.1000, L506.0250 ####[facility] [address] [place], [address] RDW SD 45.5 fl High 35.1-43.9 [facility] Comment on above: Performed By: #### L 100.0100, L500.4050, L500.4100, L503.0105, L506.1000, L506.0250 ####[facility] [address] [place], [address] WBC (Bld) [#/Vol] 4.6 10*3/uL Normal 4.4-11.0 [facility] Comment on above: Performed By: #### L 100.0100, L500.4050, L500.4100, L503.0105, L506.1000, L506.0250 ####[facility] [address] [place], [address] Carbon dioxide measurementOr dered By: Rajat Fast on 01-17-2025 CO2 [Moles/Vol] 28.0 mmol/L 21.0-32.0 [facility] Chloride measurementOrdered By: Rajat Fast on 01-17-2025 Chloride [Moles/Vol] 107 mmol/L 98-107 [facility] Comprehensive Metabolic Prof ilon 01-17-2025 Albumin [Mass/Vol] 3.8 g/dL Normal 3.2-5.0 [facility] Comment on above: Performed By: #### L 100.0100, L500.4050, L500.4100, L503.0105, L506.1000, L506.0250 ####[facility] [address] [place], [address] Albumin/Globulin [Mass ratio] 1.1 {ratio} Normal 0.9-2.4 [facility] Comment on above: Performed By: #### L 100.0100, L500.4050, L500.4100, L503.0105, L506.1000, L506.0250 ####[facility] [address] [place], [address] ALK P 53 U/L Normal 45-117 [facility] Comment on above: Performed By: #### L 100.0100, L500.4050, L500.4100, L503.0105, L506.1000, L506.0250 ####[facility] [address] [place], [address] ALT [Catalytic activity/Vol] 23 U/L Normal 13-56 [facility] Comment on above: Performed By: #### L 100.0100, L500.4050, L500.4100, L503.0105, L506.1000, L506.0250 ####[facility] [address] [place], [address] AST [Catalytic activity/Vol] 25 U/L Normal 15-37 [facility] Comment on above: Performed By: #### L 100.0100, L500.4050, L500.4100, L503.0105, L506.1000, L506.0250 ####[facility] [address] [place], [address] Bilirubin [Mass/Vol] 0.70 mg/dL Normal 0.20-1.00 [facility] Comment on above: Result Comment: For patients on eltrombopag therapy, use of Dimension [place] TBIL is not recommended. Performed By: #### L 100.0100, L500.4050, L500.4100, L503.0105, L506.1000, L506.0250 ####[facility] [address] [place], [address] BUN/CRE 13.8 RATIO Normal 10-20 [facility] Comment on above: Performed By: #### L 100.0100, L500.4050, L500.4100, L503.0105, L506.1000, L506.0250 ####[facility] [address] [place], [address] CA,Total 9.9 mg/dL Normal 8.5-10.1 [facility] Comment on above: Performed By: #### L 100.0100, L500.4050, L500.4100, L503.0105, L506.1000, L506.0250 ####[facility] [address] [place], [address] Chloride [Moles/Vol] 107 mmol/L Normal 98-107 [facility] Comment on above: Performed By: #### L 100.0100, L500.4050, L500.4100, L503.0105, L506.1000, L506.0250 ####[facility] [address] [place], [address] CO2 [Moles/Vol] 28.0 mmol/L Normal 21.0-32.0 [facility] Comment on above: Performed By: #### L 100.0100, L500.4050, L500.4100, L503.0105, L506.1000, L506.0250 ####[facility] [address] [place], [address] Creatinine [Mass/Vol] 0.80 mg/dL Normal 0.55-1.02 [facility] Comment on above: Result Comment: The validity of the calculated GFR GFRAA in patients over 70 years has not been determined. Clinical correlation is essential. Performed By: #### L 100.0100, L500.4050, L500.4100, L503.0105, L506.1000, L506.0250 ####[facility] [address] [place], [address] EST GFR - AA 92 mL/min Normal >60 [facility] Comment on above: Result Comment: Afri can [place] GFR Calc Performed By: #### L 100.0100, L500.4050, L500.4100, L503.0105, L506.1000, L506.0250 ####[facility] [address] [place], [address] GAP 5 Normal 5-15 [facility] Comment on above: Performed By: #### L 100.0100, L500.4050, L500.4100, L503.0105, L506.1000, L506.0250 ####[facility] [address] [place], [address] GFR/1.73 sq M.predicted among non-blacks MDRD (S/P/Bld) [Vol rate/Area] 76 mL/min/{1.73_m2} Normal >60 [facility] Comment on above: Result Comment: Non- GFR Calc Performed By: #### L 100.0100, L500.4050, L500.4100, L503.0105, L506.1000, L506.0250 ####[facility] [address] [place], [address] Globulin (S) [Mass/Vol] 3.4 g/dL Normal 2.2-4.2 [facility] Comment on above: Performed By: #### L 100.0100, L500.4050, L500.4100, L503.0105, L506.1000, L506.0250 ####[facility] [address] [place], [address] Glucose [Mass/Vol] 93 mg/dL Normal 74-106 [facility] Comment on above: Performed By: #### L 100.0100, L500.4050, L500.4100, L503.0105, L506.1000, L506.0250 ####[facility] [address] [place], [address] Potassium [Moles/Vol] 4.3 mmol/L Normal 3.5-5.1 [facility] Comment on above: Performed By: #### L 100.0100, L500.4050, L500.4100, L503.0105, L506.1000, L506.0250 ####[facility] [address] [place], [address] Sodium [Moles/Vol] 140 mmol/L Normal 136-145 [facility] Comment on above: Performed By: #### L 100.0100, L500.4050, L500.4100, L503.0105, L506.1000, L506.0250 ####[facility] [address] [place], [address] T PROT 7.2 g/dL Normal 6.4-8.2 [facility] Comment on above: Performed By: #### L 100.0100, L500.4050, L500.4100, L503.0105, L506.1000, L506.0250 ####[facility] [address] [place], [address] Urea nitrogen [Mass/Vol] 11 mg/dL Normal 7-18 [facility] Comment on above: Performed By: #### L 100.0100, L500.4050, L500.4100, L503.0105, L506.1000, L506.0250 ####[facility] [address] [place], [address] Eosinophil percentageOrdered By: Rajat Norton on 01-17-2025 Eosinophils/100 WBC (Bld) 3.3 % 0-5 [facility] Erythrocyte distribution wid th (RBC) [Ratio]Ordered By: Rajat Fast on 01-17-2025 Erythrocyte distribution width (RBC) [Entitic vol] 45.5 fL High 35.1-43.9 [facility] Erythrocyte distribution wid th ratioOrdered By: Rajat Fast on 01-17-2025 Erythrocyte distribution width (RBC) [Ratio] 13.2 % 11.6-14.6 [facility] Erythrocyte distribution wid th standard deviationOrdered By: Rajat Fast on 01-17-2025 Erythrocyte distribution width (RBC) [Ratio] 45.5 fl High 35.1-43.9 [facility] Estimated glomerular filtrat ion rate (GFR) AmericanOrdered By: Rajat Fast on 01-17-2025 Estimated GFR (MDRD) Amer 92 mL/min >60 [facility] Comment on above: GFR Calc Folates, (Folic Acid)on 12-30 FOLATES 19.10 ng/mL Normal 3.1-55.4 [facility] Comment on above: Order Comment: N Performed By: #### L 100.0100, L500.4050, L500.4100, L503.0105, L506.1000, L506.0250 ####[facility] [address] [place], [address] Folic acid measurementOrdere d By: on 01-17-2025 Folate 19.10 ng/mL 3.1-55.4 [facility] Glomerular filtration rate ( GFR) estimationOrdered By: Rajat on 01-17-2025 Estimated GFR (MDRD) Non-Af Amer 76 mL/min >60 [facility] Comment on above: Non- GFR Calc GFR/1.73 sq M.predicted among non-blacks MDRD (S/P/Bld) [Vol rate/Area] 76 mL/min/{1.73_m2} >60 [facility] Comment on above: Non- GFR Calc Glucose measurementOrdered B y: Rajat Fast on 01-17-2025 Glucose [Mass/Vol] 93 mg/dL 74-106 [facility] Hematocrit Auto (Bld) [Volum e fraction]Ordered By: Rajat Fast on 01-17-2025 Hematocrit (Bld) [Volume fraction] 41.6 % 37-47 [facility] Hemoglobin measurementOrdere d By: Rajat on 01-17-2025 Hemoglobin (Bld) [Mass/Vol] 13.8 g/dL 12.0-15.0 [facility] High density lipoprotein (HD L) measurementOrdered By: Rajat on 01-17-2025 Cholesterol in HDL [Mass/Vol] 93 mg/dL >40 [facility] Comment on above: The drugs N-Acetylcy steine and Metamizole may falsely depress this assay. Reference Range HDL <40 mg/dL Low HDL Cholesterol HDL >or= 60 mg/dL High HDL Cholesterol Immature granulocytes/100 WB C Auto (Bld)Ordered By: Rajat on 01-17-2025 Immature granulocytes/100 WBC (Bld) 0.200 % 0.0-0.9 [facility] Comment on above: IG% - Immature Granu locytes (promyelocytes, myelocytes and metamyelocytes) > 1% indicates that a LEFT SHIFT is Present. Laboratory - Chemistry and C hemistry - challengeOrdered By: Rajat on 01-17-2025 AST [Catalytic activity/Vol] 25 U/L 15-37 [facility] Lipid Profileon 01-17-2025 Cholesterol [Mass/Vol] 211 mg/dL High 200 [facility] Comment on above: Result Comment: <200 mg/dL Desirable 200-240 mg/dL Borderline >240 mg/dL High Risk Performed By: #### L 100.0100, L500.4050, L500.4100, L503.0105, L506.1000, L506.0250 ####[facility] [address] [place], [address] Cholesterol in HDL [Mass/Vol] 93 mg/dL Normal [facility] Comment on above: Result Comment: The drugs N-Acetylcysteine and Metamizole may falsely depress this assay. Reference Range HDL <40 mg/dL Low HDL Cholesterol HDL >or= 60 mg/dL High HDL Cholesterol Performed By: #### L 100.0100, L500.4050, L500.4100, L503.0105, L506.1000, L506.0250 ####[facility] [address] [place], [address] Cholesterol in LDL [Mass/Vol] 106 mg/dL Normal 0-130 [facility] Comment on above: Performed By: #### L 100.0100, L500.4050, L500.4100, L503.0105, L506.1000, L506.0250 ####[facility] [address] [place], [address] Cholesterol in VLDL [Mass/Vol] 12 mg/dL Normal 5-40 [facility] Comment on above: Performed By: #### L 100.0100, L500.4050, L500.4100, L503.0105, L506.1000, L506.0250 ####[facility] [address] [place], [address] Triglyceride [Mass/Vol] 60 mg/dL Normal [facility] Comment on above: Result Comment: The drugs N-Acetylcysteine and Metamizole may falsely depress this assay. Serum Triglycerides Reference Interval Normal <150 mg/dL Borderline high 150 - 199 mg/dL High 200 - 499 mg/dL Very High > or = 500 mg/dL Performed By: #### L 100.0100, L500.4050, L500.4100, L503.0105, L506.1000, L506.0250 ####[facility] [address] [place], [address] Low density lipoprotein (LDL ) cholesterol measurementOrdered By: Rajat Fast on 01-17-2025 Cholesterol in LDL [Mass/Vol] 106 mg/dL 0-130 [facility] Lymphocytes Auto (Unsp spec) [#/Vol]Ordered By: Rajat Fast on 01-17-2025 Lymphocytes (Bld) [#/Vol] 1.18 10*3/uL 0.83-4.51 [facility] Lymphocytes/100 WBC Auto (Un sp spec)Ordered By: Rajat Fast on 02-20-2025 Lymphocytes/100 WBC (Bld) 25.7 % 19-41 [facility] MCV (mean corpuscular volume ) determinationOrdered By: Rajat Fast on 01-17-2025 MCV (RBC) [Entitic vol] 93.9 fL 81-99 [facility] Mean corpuscular hemoglobin (MCH) determinationOrdered By: Rajat Fast on 01-17-2025 MCH (RBC) [Entitic mass] 31.2 pg 27.0-32.0 [facility] Mean corpuscular hemoglobin concentration (MCHC) determinationOrdered By: Rajat Fast on 01-17-2025 MCHC (RBC) [Mass/Vol] 33.2 g/dL 32-36 [facility] Mean platelet volume determi nationOrdered By: Rajat Fast on 01-17-2025 Platelet mean volume (Bld) [Entitic vol] 8.8 fL 6.2-12.0 [facility] Monocyte percentageOrdered B y: Rajat Fast on 01-17-2025 Monocytes/100 WBC (Bld) 6.8 % 0-10 [facility] Neutrophil percentageOrdered By: Rajat Fast on 01-17-2025 Neutrophils/100 WBC (Bld) 63.1 % 47-70 [facility] Nucleated red blood cell per centageOrdered By: Rajat Fast on 01-17-2025 Nucleated RBC/100 WBC (Bld) [Ratio] 0 % 0-5 [facility] Platelet countOrdered By: De bra Fast on 01-17-2025 Platelets (Bld) [#/Vol] 197 10*3/uL 150-450 [facility] Potassium measurementOrdered By: Rajat Fast on 01-17-2025 Potassium [Moles/Vol] 4.3 mmol/L 3.5-5.1 [facility] RBC Auto (Bld) [#/Vol]Ordere d By: Rajat Fast on 01-17-2025 RBC (Bld) [#/Vol] 4.43 10*6/uL 4.2-5.4 [facility] Serum anion gap measurementO rdered By: Rajat Fast on 01-17-2025 Anion gap [Moles/Vol] 5 mmol/L 5-15 [facility] Serum globulin measurementOr dered By: Rajat Fast on 01-17-2025 Globulin (S) [Mass/Vol] 3.4 g/dL 2.2-4.2 [facility] Serum or plasma alanine teresa otransferase (ALT) measurementOrdered By: on 01-17-2025 ALT [Catalytic activity/Vol] 23 U/L 13-56 [facility] Serum or plasma albumin peggy urement (mass/volume)Ordered By: on 01-17-2025 Albumin [Mass/Vol] 3.8 g/dL 3.2-5.0 [facility] Serum or plasma alkaline debbie sphatase measurementOrdered By: on 01-17-2025 ALP [Catalytic activity/Vol] 53 U/L 45-117 [facility] Serum or plasma calcium peggy urement (mass/volume)Ordered By: 01-17-2025 Calcium [Mass/Vol] 9.9 mg/dL 8.5-10.1 [facility] Serum or plasma cholesterol measurement (mass/volume)Ordered By: on 01-17-2025 Cholesterol [Mass/Vol] 211 mg/dL High <200 [facility] Comment on above: <200 mg/dL Desirable 200-240 mg/dL Borderline >240 mg/dL High Risk Serum or plasma creatinine m easurement (mass/volume)Ordered By: on 01-17-2025 Creatinine [Mass/Vol] 0.80 mg/dL 0.55-1.02 [facility] Comment on above: The validity of the calculated GFR & GFRAA in patients over 70 years has not been determined. Clinical correlation is essential. Serum or plasma urea nitroge n measurement (mass/volume)Ordered By: on 01-17-2025 Urea nitrogen [Mass/Vol] 11 mg/dL 7-18 [facility] Sodium levelOrdered By: a on 01-17-2025 Sodium [Moles/Vol] 140 mmol/L 136-145 [facility] Total proteinOrdered By: Emelia ra on 01-17-2025 Protein [Mass/Vol] 7.2 g/dL 6.4-8.2 [facility] Triglycerides measurementOrd ered By: on 01-17-2025 Triglyceride [Mass/Vol] 60 mg/dL <199 [facility] Comment on above: The drugs N-Acetylcy steine and Metamizole may falsely depress this assay.Serum Triglycerides Reference Interval Normal <150 mg/dL Borderline high 150 - 199 mg/dL High 200 - 499 mg/dL Very High > or = 500 mg/dL Very low density lipoprotein (VLDL) cholesterol measurementOrdered By: Rajat Fast on 01-17-2025 Very low density lipoprotein (VLDL) cholesterol measurement 12 mg/dL - [facility] VLDL Cholesterol 12 mg/dL -40 [facility] Vitamin B12on 01-17-2025 Cobalamin (Vitamin B12) [Mass/Vol] 702 pg/mL Normal [facility] Comment on above: Performed By: #### L 100.0100, L500.4050, L500.4100, L503.0105, L506.1000, L506.0250 ####[facility] [address] [place], [place], [id number] Vitamin B12 measurementOrder ed By: Rajat Fast on 01-17-2025 Cobalamin (Vitamin B12) [Mass/Vol] 702 pg/mL [facility] Vitamin D,25 Hydroxyon 01-17 Vitamin D 25-OH 54.9 ng/mL Normal [facility] Comment on above: Result Comment: Charo min D 25(OH) Status Range Deficiency <20 ng/mL (50nmol/L) Insufficiency 20 - 30 ng/mL (50 - 75 nmol/L) Sufficiency 30 - 100 ng/mL (75 - 250 nmol/L) Toxicity >100 ng/mL (>250 nmol/L) Performed By: #### L 100.0100, L500.4050, L500.4100, L503.0105, L506.1000, L506.0250 ####[facility] [address] [place], [place], [address] White blood cell (WBC) count Ordered By: Rajat Fast on 01-17-2025 WBC (Bld) [#/Vol] 4.6 10*3/uL 4.4-11.0 [facility] 12-25-2024 [facility] Telephone (FAMPWS) ERIN DYSON ([id number]) 1955 F Date Time Provider Department 12/25/24 [facility] During your visit today, we recorded the following information about you: Geneva Mejia LPN 12/25/2024 1:19 PM Signed In regards to TE 11/23/24: Pt calls to ask why she needs a EKG before switching from Namenda 5 mg bid to Aricept. Pt is asking if there is an issue between Aricept and the heart. Pt is asking if dr feels Aricept is ok for her to switch to. Pt reports before she gets an EKG done she would like to know the reasoning behind needing to get one done. AUBREE Condon William J Jr., MD 12/26/2024 1:01 PM Signed Please let pt know: Aricept (donepezil) can potentially affect the heart by causing bradycardia (slow heart rate) and heart block, due to its effect on the cardiac conduction system, meaning it can potentially disrupt the electrical signals that regulate the heart rhythm. The ECG is to determine if there are any predisposing factors that would suggest that someone might be at higher risk for such side effects. MD Jaswant Vera Samaria, LPN 12/26/2024 1:25 PM Signed Spoke to patient, verified name and date of . Advised patient of message below. Patient verbalized understanding. Patient states sister is on it and she is overweight and out of shape and seems to be doing well. She wasn't sure why Dr. Robertson would want an EKG done because her sister doesn't have to do that. Patient states she will stay on medication and she doesn't feel the need to increase to 10mg right now. Nohemy Dudley LPN December 26, 2024 1:25 PM Encounter closed Allergies As of Date: 12/25/2024 (No Known Allergies) Date Reviewed: 11/02/2024 Reviewed by: Ozzie Robertson Jr., MD - Fully Assessed Reason for Visit: Medication Question [1478] Prescriptions as of 12/26/2024 - memantine (NAMENDA) 5 mg tablet Take 1 tablet by mouth two times a day. - ascorbic acid, vitamin C, (VITAMIN C) 250 mg tablet Take 250 mg by mouth once daily. - cholecalciferol, vitamin D3, (VITAMIN D-3) 10 mcg (400 unit) cap Take 400 Units by mouth once daily. - ZINC ACETATE ORAL Take 1 tablet by mouth once daily. - calcium carbonate (CALCIUM 500 ORAL) Take 1 tablet by mouth once daily. 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 Patient reports no current problem with Namenda but her sister also has cognitive issues and memory loss and was started on donepezil and has huge success. Patient reports that Dr. Robertson told her if she wanted a medication change to call in. Currently taking Namenda 5 mg twice daily with no side effects or concerns. Requesting to discontinue Namenda to start Donepezil. GISELE Thomas William J Jr., MD 11/23/2024 2:48 PM Signed Please see if pt has had recent ECG. If not, would like pt to have one to confirm that Aricept would be safe from cardiac standpoint. MD Jaswant Vera Samaria, LPN 11/23/2024 3:29 PM Signed Patient has not had an EKG done recently, would like to have order placed and patient will get EKG done through [facility]. Patient would also like to know the difference between medications listed below, pt was wondering why her sister would experience better results then she is. Please review and advise. Nohemy Dudley LPN November 23, 2024 3:28 PM Ozzie Robertson Jr., MD 11/23/2024 6:28 PM Signed Please schedule pt follow up with Mason BOWEN to review meds and discuss further treatment options. Will order ECG. MD Sarika Vera Sherrie 11/26/2024 8:50 AM Signed Spoke with nurse [place] and current EKG order in [facility] is not correct please delete and add correct order. Ozzie Robertson Jr., MD 11/26/2024 1:43 PM Signed Addended by: OZZIE ROBERTSON on: 11/26/2024 01:43 PM Modules accepted: Nohemy Rodriguez LPN 11/26/2024 3:47 PM Signed Addended by: NOHEMY DUDLEY on: 11/26/2024 03:47 PM Modules accepted: Ozzie Cordero Jr., MD 11/26/2024 5:22 PM Signed Addended by: OZZIE ROBERTSON on: 11/26/2024 05:22 PM Modules accepted: Charisse Tristan 11/27/2024 8:[address] attempt left message to return call to arrange EKG with Nurse and verify follow up with Danni Gurrola 02/06/25 and please verify if patient is employed and fix insurance and complete MSPQ. Allergies As of Date: 11/23/2024 (No Known Allergies) Date Reviewed: 11/02/2024 Reviewed by: Ozzie Robertson Jr., MD - Fully Assessed Reason for Visit: Patient Question [2577] Primary Visit Diagnosis:Dementia without behavioral disturbance, psychotic disturbance, mood disturbance, or anxiety, unspecified dementia severity, unspecified dementia type (HCC) [F03.90] Other Visit Diagnosis:At high risk for adverse medication event [Z91.89] Order(s):ECG INTERPRETATION AND REPORT ONLY [[id number]] Order #: [id number]: 1 ECG INTERPRETATION AND REPORT ONLY [84852DDG] Order #: [id number]: 1 ECG COMPLETE [ECG01] Order #: [id number] FUTURE Prescriptions as of 11/27/2024 - memantine (NAMENDA) 5 mg tablet Take 1 tablet by mouth two times a day. - ascorbic acid, vitamin C, (VITAMIN C) 250 mg tablet Take 250 mg by mouth once daily. - cholecalciferol, vitamin D3, (VITAMIN D-3) 10 mcg (400 unit) cap Take 400 Units by mouth once daily. - ZINC ACETATE ORAL Take 1 tablet by mouth once daily. - calcium carbonate (CALCIUM 500 ORAL) Take 1 tablet by mouth once daily. 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/11/2023 Diagnosed: 10/11/2023 Dementia without behavioral disturbance (HCC) [*10/11/2023 Encounter Status:Closed by OZZIE ROBERTSON on 11/23/24 [facility] CNOVon 11-02-2024 CNOV Office Visit (NEMOWS ) ERIN DYSON ([id number]) 1955 F Date Time Provider Department 11/02/24 3:20 PM OZZIE ROBERTSON JR During your visit today, we recorded the following information about you: Pulse Blood pressure Weight 95/minute 125/81 65 kg Nohemy Dudley LPN 11/02/2024 3:58 PM Signed Ozzie Robertson Jr., MD 11/02/2024 3:58 PM Signed ESTABLISHED PATIENT VISIT CHIEF COMPLAINT: Follow Up HISTORY OF PRESENT ILLNESS: Erin Dyson is a 69 year old female, with a PMH significant for and per last office visit of 05/04/24: 1. Cognitive decline - ICD9: 294.9, ICD10: R41.89 (primary diagnosis) 2. Memory loss - ICD9: 780.93, ICD10: R41.3 Patient with stable cognitive assessment since last evaluation. Patient reports still functioning at acceptable level at work and no limitations in daily activities. No driving issues. MOCA stable (slightly improved). D/w pt and she [...] Follow up sooner prn. Encouraged brain exercises. Patient feels doing pretty good. No issues at work. Feels medication is fine - no side effects. Driving ok. Not getting lost. Family has not commented on any issues, but daughter told her recently she would not know there was an issues with patient if she had not told her of dx and treatment. Otherwise no health complaints. REVIEW OF SYSTEMS GENERAL:No weight loss, malaise [...] patient's last visit have been reviewed. Requesting from PCP. MEDICATIONS: ascorbic acid, vitamin C, (VITAMIN C) 250 mg tablet Take 250 mg by mouth once daily. cholecalciferol, vitamin D3, (VITAMIN D-3) 10 mcg (400 unit) cap Take 400 Units by mouth once daily. ZINC ACETATE ORAL Take 1 tablet by mouth once daily. calcium carbonate (CALCIUM 500 ORAL) Take 1 tablet by mouth once daily. terbinafine HCl (LAMISIL) 250 mg tablet (Patient not taking: Reported on 11/02/2024) BIOTIN ORAL Take by mouth. (Patient not taking: Reported on 2023) HISTORIES PAST MEDICAL HISTORY Diagnosis Date NONE FAMILY HISTORY Problem Relation Age of Onset Breast Cancer Paternal Grandmother Hypertension Mother Cancer Father brain SOCIAL HISTORY Social History Tobacco Use Smoking status: Never Smokeless tobacco: Never Substance Use Topics Alcohol use: Yes Comment: occassional Drug use: No PHYSICAL EXAMINATION [facility] 03/27/2006 GENERAL EXAM: General appearance: NAD, pleasant. HEENT: NC/AT, nasal congestion absent, no oral lesions, membranes moist. NECK: ROM nml. Lungs: CTA bilaterally CV: RRR nl S1, S2 Extr: No [...] (5/5) bilaterally (throughout extremities x4). Coordination: FNF, TAD intact. No tremors. Sensation: Light touch intact throughout. No evidence of neglect. Gait: Stable with normal stride and arm swing. Assessment and Plan: ASSESSMENT/PLAN: 1. Cognitive decline - ICD9: 294.9, ICD10: R41.89 (primary diagnosis) 2. Memory loss - ICD9: 780.93, ICD10: R41.3 Overall condition stable. MOCA not performed today, but subjective history suggests no decline in cognitive status since last visit. Reviewed MRI results with patient, with focus being hippocampi and temp lobe size. Given these findings and prior history, (more content not included)... Normal [facility] Office Visit Reporton 2023 Office Visit Report [facility] [address] [place] [address] OFFICE VISIT Date of Service: 12/20/23 MR#: [id number] Acct: [id number] Patient: ERIN DYSON AOPLLO Rep #: [id number] : 1955 Provider: ANDRÉS Hernandez Age/Sex: 69/F Location: [facility] Status: Signed Employer Purchased Covid Test Note: Patient here today for Covid Testing, requested by their Employer. Assessment and Plan Assessment and Plan Orders: Orders POC Cepheid Covid, FluAB, RSV 12/20/23 R09.89 - Other specified symptoms and signs involving the circulatory and respiratory systems 10/08/24 8896 Date Juan De Souzaigndarcy Signature: Date (if applicable) CC: Normal [facility] CBC W/Diff, Automatedon 10-2 Absolute Lymph 1.40 X10 3/uL Normal 0.83-4.51 [facility] Comment on above: Order Comment: CANCE L WAS EMPH COVERS! Performed By: #### L 506.1000, L500.4050, L100.0100, L500.4100, L503.0105, L506.0250 ####[facility] [address] [place], [address] Absolute Neut 2.6 X10 3/uL Normal 2.0-7.7 [facility] Comment on above: Order Comment: CANCE L WAS EMPH COVERS! Performed By: #### L 506.1000, L500.4050, L100.0100, L500.4100, L503.0105, L506.0250 ####[facility] [address] [place], [address] Basophils/100 WBC (Bld) 0.9 % Normal 0-1 [facility] Comment on above: Order Comment: CANCE L WAS EMPH COVERS! Performed By: #### L 506.1000, L500.4050, L100.0100, L500.4100, L503.0105, L506.0250 ####[facility] [address] [place], [address] Eosinophils/100 WBC (Bld) 3.6 % Normal 0-5 [facility] Comment on above: Order Comment: CANCE L WAS EMPH COVERS! Performed By: #### L 506.1000, L500.4050, L100.0100, L500.4100, L503.0105, L506.0250 ####[facility] [address] [place], [address] Erythrocyte distribution width (RBC) [Ratio] 12.5 % Normal 11.6-14.6 [facility] Comment on above: Order Comment: CANCE L WAS EMPH COVERS! Performed By: #### L 506.1000, L500.4050, L100.0100, L500.4100, L503.0105, L506.0250 ####[facility] [address] [place], [address] Hematocrit (Bld) [Volume fraction] 41.2 % Normal 37-47 [facility] Comment on above: Order Comment: CANCE L WAS EMPH COVERS! Performed By: #### L 506.1000, L500.4050, L100.0100, L500.4100, L503.0105, L506.0250 ####[facility] [address] [place], [address] Hemoglobin (Bld) [Mass/Vol] 13.8 g/dL Normal 12.0-15.0 [facility] Comment on above: Order Comment: CANCE L WAS EMPH COVERS! Performed By: #### L 506.1000, L500.4050, L100.0100, L500.4100, L503.0105, L506.0250 ####[facility] [address] [place], [address](241 IG% 0.200 Normal 0.0-0.9 [facility] Comment on above: Order Comment: CANCE L WAS EMPH COVERS! Result Comment: IG% - Immature Granulocytes (promyelocytes, myelocytes and metamyelocytes) > 1% indicates that a LEFT SHIFT is Present. Performed By: #### L 506.1000, L500.4050, L100.0100, L500.4100, L503.0105, L506.0250 ####[facility] [address] [place], [address] Lymphocytes/100 WBC (Bld) 31.5 % Normal 19-41 [facility] Comment on above: Order Comment: CANCE L WAS EMPH COVERS! Performed By: #### L 506.1000, L500.4050, L100.0100, L500.4100, L503.0105, L506.0250 ####[facility] [address] [place], [address] MCH (RBC) [Entitic mass] 31.0 pg Normal 27.0-32.0 [facility] Comment on above: Order Comment: CANCE L WAS EMPH COVERS! Performed By: #### L 506.1000, L500.4050, L100.0100, L500.4100, L503.0105, L506.0250 ####[facility] [address] [place], [address] MCHC (RBC) [Mass/Vol] 33.5 g/dL Normal 32-36 [facility] Comment on above: Order Comment: CANCE L WAS EMPH COVERS! Performed By: #### L 506.1000, L500.4050, L100.0100, L500.4100, L503.0105, L506.0250 ####[facility] [address] [place], [address] MCV (RBC) [Entitic vol] 92.6 fL Normal 81-99 [facility] Comment on above: Order Comment: CANCE L WAS EMPH COVERS! Performed By: #### L 506.1000, L500.4050, L100.0100, L500.4100, L503.0105, L506.0250 ####[facility] [address] [place], [address] Monocytes/100 WBC (Bld) 6.3 % Normal 0-10 [facility] Comment on above: Order Comment: CANCE L WAS EMPH COVERS! Performed By: #### L 506.1000, L500.4050, L100.0100, L500.4100, L503.0105, L506.0250 ####[facility] [address] [place], [address] Neutrophils/100 WBC (Bld) 57.5 % Normal 47-70 [facility] Comment on above: Order Comment: CANCE L WAS EMPH COVERS! Performed By: #### L 506.1000, L500.4050, L100.0100, L500.4100, L503.0105, L506.0250 ####[facility] [address] [place], [address] Nucleated RBC (Bld) [#/Vol] 0 10*3/uL Normal 0-5 [facility] Comment on above: Order Comment: CANCE L WAS EMPH COVERS! Performed By: #### L 506.1000, L500.4050, L100.0100, L500.4100, L503.0105, L506.0250 ####[facility] [address] [place], [address] Platelet mean volume (Bld) [Entitic vol] 8.9 fL Normal 6.2-12.0 [facility] Comment on above: Order Comment: CANCE L WAS EMPH COVERS! Performed By: #### L 506.1000, L500.4050, L100.0100, L500.4100, L503.0105, L506.0250 ####[facility] [address] [place], [address] Platelets (Bld) [#/Vol] 204 10*3/uL Normal 150-450 [facility] Comment on above: Order Comment: CANCE L WAS EMPH COVERS! Performed By: #### L 506.1000, L500.4050, L100.0100, L500.4100, L503.0105, L506.0250 ####[facility] [address] [place], [address] RBC (Bld) [#/Vol] 4.45 10*6/uL Normal 4.2-5.4 [facility] Comment on above: Order Comment: CANCE L WAS EMPH COVERS! Performed By: #### L 506.1000, L500.4050, L100.0100, L500.4100, L503.0105, L506.0250 ####[facility] [address] [place], [address] RDW SD 42.6 fl Normal 35.1-43.9 [facility] Comment on above: Order Comment: CANCE L WAS EMPH COVERS! Performed By: #### L 506.1000, L500.4050, L100.0100, L500.4100, L503.0105, L506.0250 ####[facility] [address] [place], [address] WBC (Bld) [#/Vol] 4.4 10*3/uL Normal 4.4-11.0 [facility] Comment on above: Order Comment: GABRIEL SCHWAB EMPH COVERS! Performed By: #### L 506.1000, L500.4050, L100.0100, L500.4100, L503.0105, L506.0250 ####[facility] [address] [place], [address] CBC, Employeeon 09-20-2024 Absolute Lymph 1.30 X10 3/uL Normal 0.83-4.51 [facility] Comment on above: Performed By: #### L 500.2900, L100.0200 #### [facility] [address] [place], [address] Absolute Neut 2.4 X10 3/uL Normal 2.0-7.7 [facility] Comment on above: Performed By: #### L 500.2900, L100.0200 #### [facility] [address] [place], [address] Basophils/100 WBC (Bld) 0.9 % Normal 0-1 [facility] Comment on above: Performed By: #### L 500.2900, L100.0200 #### [facility] [address] [place], [address] Eosinophils/100 WBC (Bld) 3.8 % Normal 0-5 [facility] Comment on above: Performed By: #### L 500.2900, L100.0200 #### [facility] [address] [place], [address] Erythrocyte distribution width (RBC) [Ratio] 12.6 % Normal 11.6-14.6 [facility] Comment on above: Performed By: #### L 500.2900, L100.0200 #### [facility] [address] [place], [address] Hematocrit (Bld) [Volume fraction] 40.7 % Normal 37-47 [facility] Comment on above: Performed By: #### L 500.2900, L100.0200 #### [facility] [address] [place], [address] Hemoglobin (Bld) [Mass/Vol] 13.6 g/dL Normal 12.0-15.0 [facility] Comment on above: Performed By: #### L 500.2900, L100.0200 #### [facility] [address] [place], [address] Lymphocytes/100 WBC (Bld) 30.7 % Normal 19-41 [facility] Comment on above: Performed By: #### L 500.2900, L100.0200 #### [facility] [address] [place], [address] MCH (RBC) [Entitic mass] 30.9 pg Normal 27.0-32.0 [facility] Comment on above: Performed By: #### L 500.2900, L100.0200 #### [facility] [address] [place], [address] MCHC (RBC) [Mass/Vol] 33.4 g/dL Normal 32-36 [facility] Comment on above: Performed By: #### L 500.2900, L100.0200 #### [facility] [address] [place], [address] MCV (RBC) [Entitic vol] 92.5 fL Normal 81-99 [facility] Comment on above: Performed By: #### L 500.2900, L100.0200 #### [facility] [address] [place], [address] Monocytes/100 WBC (Bld) 7.1 % Normal 0-10 [facility] Comment on above: Performed By: #### L 500.2900, L100.0200 #### [facility] [address] [place], [address] Neutrophils/100 WBC (Bld) 57.0 % Normal 47-70 [facility] Comment on above: Performed By: #### L 500.2900, L100.0200 #### [facility] [address] [place], [address] NRBC # 0.00 10 3/uL Normal 0-5 [facility] Comment on above: Performed By: #### L 500.2900, L100.0200 #### [facility] [address] [place], [address] Nucleated RBC (Bld) [#/Vol] 0 10*3/uL Normal 0-5 [facility] Comment on above: Performed By: #### L 500.2900, L100.0200 #### [facility] [address] [place], [address] Platelet mean volume (Bld) [Entitic vol] 8.9 fL Normal 6.2-12.0 [facility] Comment on above: Performed By: #### L 500.2900, L100.0200 #### [facility] [address] [place], [address] Platelets (Bld) [#/Vol] 204 10*3/uL Normal 150-450 [facility] Comment on above: Performed By: #### L 500.2900, L100.0200 #### [facility] [address] [place], [address] RBC (Bld) [#/Vol] 4.40 10*6/uL Normal 4.2-5.4 [facility] Comment on above: Performed By: #### L 500.2900, L100.0200 #### [facility] [address] [place], [address] RDW SD 43.4 fl Normal 35.1-43.9 [facility] Comment on above: Performed By: #### L 500.2900, L100.0200 #### [facility] [address] [place], [address] WBC (Bld) [#/Vol] 4.2 10*3/uL Low 4.4-11.0 [facility] Comment on above: Performed By: #### L 500.2900, L100.0200 #### [facility] [address] [place], [address] Comprehensive Metabolic Prof ilon 09-20-2024 Albumin [Mass/Vol] 4.0 g/dL Normal 3.2-5.0 [facility] Comment on above: Order Comment: PLEAS E ADD A LIPID THAT WAS MISSED FROM THIS MORNINGCANCEL WAS EMPH COVERS!LIPIDN Performed By: #### L 506.1000, L500.4050, L100.0100, L500.4100, L503.0105, L506.0250 ####[facility] [address] [place], [address] Albumin/Globulin [Mass ratio] 1.1 {ratio} Normal 0.9-2.4 [facility] Comment on above: Order Comment: PLEAS E ADD A LIPID THAT WAS MISSED FROM THIS MORNINGCANCEL WAS EMPH COVERS!LIPIDN Performed By: #### L 506.1000, L500.4050, L100.0100, L500.4100, L503.0105, L506.0250 ####[facility] [address] [place], [address] ALK P 60 U/L Normal 45-117 [facility] Comment on above: Order Comment: PLEAS E ADD A LIPID THAT WAS MISSED FROM THIS MORNINGCANCEL WAS EMPH COVERS!LIPIDN Performed By: #### L 506.1000, L500.4050, L100.0100, L500.4100, L503.0105, L506.0250 ####[facility] [address] [place], [address] ALT [Catalytic activity/Vol] 23 U/L Normal 13-56 [facility] Comment on above: Order Comment: PLEAS E ADD A LIPID THAT WAS MISSED FROM THIS MORNINGCANCEL WAS EMPH COVERS!LIPIDN Performed By: #### L 506.1000, L500.4050, L100.0100, L500.4100, L503.0105, L506.0250 ####[facility] [address] [place], [place], [phone] AST [Catalytic activity/Vol] 24 U/L Normal 15-37 [facility] Comment on above: Order Comment: PLEAS E ADD A LIPID THAT WAS MISSED FROM THIS MORNINGCANCEL WAS EMPH COVERS!LIPIDN Performed By: #### L 506.1000, L500.4050, L100.0100, L500.4100, L503.0105, L506.0250 ####[facility] [address] [place], [address] Bilirubin [Mass/Vol] 0.50 mg/dL Normal 0.20-1.00 [facility] Comment on above: Order Comment: PLEAS E ADD A LIPID THAT WAS MISSED FROM THIS MORNINGCANCEL WAS EMPH COVERS!LIPIDN Result Comment: For patients on eltrombopag therapy, use of Dimension [place] TBIL is not recommended. Performed By: #### L 506.1000, L500.4050, L100.0100, L500.4100, L503.0105, L506.0250 ####[facility] [address] [place], [address] BUN/CRE 18.7 RATIO Normal 10-20 [facility] Comment on above: Order Comment: PLEAS E ADD A LIPID THAT WAS MISSED FROM THIS MORNINGCANCEL WAS EMPH COVERS!LIPIDN Performed By: #### L 506.1000, L500.4050, L100.0100, L500.4100, L503.0105, L506.0250 ####[facility] [address] [place], [address] CA,Total 10.0 mg/dL Normal 8.5-10.1 [facility] Comment on above: Order Comment: PLEAS E ADD A LIPID THAT WAS MISSED FROM THIS MORNINGCANCEL WAS EMPH COVERS!LIPIDN Performed By: #### L 506.1000, L500.4050, L100.0100, L500.4100, L503.0105, L506.0250 ####[facility] [address] [place], [address] Chloride [Moles/Vol] 108 mmol/L High 98-107 [facility] Comment on above: Order Comment: PLEAS E ADD A LIPID THAT WAS MISSED FROM THIS MORNINGCANCEL WAS EMPH COVERS!LIPIDN Performed By: #### L 506.1000, L500.4050, L100.0100, L500.4100, L503.0105, L506.0250 ####[facility] [address] [place], [address] CO2 [Moles/Vol] 24.0 mmol/L Normal 21.0-32.0 [facility] Comment on above: Order Comment: PLEAS E ADD A LIPID THAT WAS MISSED FROM THIS MORNINGCANCEL WAS EMPH COVERS!LIPIDN Performed By: #### L 506.1000, L500.4050, L100.0100, L500.4100, L503.0105, L506.0250 ####[facility] [address] [place], [address] Creatinine [Mass/Vol] 0.75 mg/dL Normal 0.55-1.02 [facility] Comment on above: Order Comment: PLEAS E ADD A LIPID THAT WAS MISSED FROM THIS MORNINGCANCEL WAS EMPH COVERS!LIPIDN Result Comment: The validity of the calculated GFR GFRAA in patients over 70 years has not been determined. Clinical correlation is essential. Performed By: #### L 506.1000, L500.4050, L100.0100, L500.4100, L503.0105, L506.0250 ####[facility] [address] [place], [address] EST GFR - AA 98 mL/min Normal >60 [facility] Comment on above: Order Comment: PLEAS E ADD A LIPID THAT WAS MISSED FROM THIS MORNINGCANCEL WAS EMPH COVERS!LIPIDN Result Comment: Afri can [place] GFR Calc Performed By: #### L 506.1000, L500.4050, L100.0100, L500.4100, L503.0105, L506.0250 ####[facility] [address] [place], [place], [id number] GAP 6 Normal 5-15 [facility] Comment on above: Order Comment: PLEAS E ADD A LIPID THAT WAS MISSED FROM THIS MORNINGCANCEL WAS EMPH COVERS!LIPIDN Performed By: #### L 506.1000, L500.4050, L100.0100, L500.4100, L503.0105, L506.0250 ####[facility] [address] [place], [place], [phone] GFR/1.73 sq M.predicted among non-blacks MDRD (S/P/Bld) [Vol rate/Area] 81 mL/min/{1.73_m2} Normal >60 [facility] Comment on above: Order Comment: PLEAS E ADD A LIPID THAT WAS MISSED FROM THIS MORNINGCANCEL WAS EMPH COVERS!LIPIDN Result Comment: Non- GFR Calc Performed By: #### L 506.1000, L500.4050, L100.0100, L500.4100, L503.0105, L506.0250 ####[facility] [address] [place], [place], [phone] Globulin (S) [Mass/Vol] 3.5 g/dL Normal 2.2-4.2 [facility] Comment on above: Order Comment: PLEAS E ADD A LIPID THAT WAS MISSED FROM THIS MORNINGCANCEL WAS EMPH COVERS!LIPIDN Performed By: #### L 506.1000, L500.4050, L100.0100, L500.4100, L503.0105, L506.0250 ####[facility] [address] [place], [address] Glucose [Mass/Vol] 102 mg/dL Normal 74-106 [facility] Comment on above: Order Comment: PLEAS E ADD A LIPID THAT WAS MISSED FROM THIS MORNINGCANCEL WAS EMPH COVERS!LIPIDN Result Comment: Fast ing Glucose result from 100 to 125 mg/dL suggests IMPAIRED HOMEOSTASIS per A.D.A. criteria. Performed By: #### L 506.1000, L500.4050, L100.0100, L500.4100, L503.0105, L506.0250 ####[facility] [address] [place], [address] Potassium [Moles/Vol] 4.0 mmol/L Normal 3.5-5.1 [facility] Comment on above: Order Comment: PLEAS E ADD A LIPID THAT WAS MISSED FROM THIS MORNINGCANCEL WAS EMPH COVERS!LIPIDN Performed By: #### L 506.1000, L500.4050, L100.0100, L500.4100, L503.0105, L506.0250 ####[facility] [address] [place], [address] Sodium [Moles/Vol] 138 mmol/L Normal 136-145 [facility] Comment on above: Order Comment: PLEAS E ADD A LIPID THAT WAS MISSED FROM THIS MORNINGCANCEL WAS EMPH COVERS!LIPIDN Performed By: #### L 506.1000, L500.4050, L100.0100, L500.4100, L503.0105, L506.0250 ####[facility] [address] [place], [address] T PROT 7.5 g/dL Normal 6.4-8.2 [facility] Comment on above: Order Comment: PLEAS E ADD A LIPID THAT WAS MISSED FROM THIS MORNINGCANCEL WAS EMPH COVERS!LIPIDN Performed By: #### L 506.1000, L500.4050, L100.0100, L500.4100, L503.0105, L506.0250 ####[facility] [address] [place], [address] Urea nitrogen [Mass/Vol] 14 mg/dL Normal 7-18 [facility] Comment on above: Order Comment: PLEAS E ADD A LIPID THAT WAS MISSED FROM THIS MORNINGCANCEL WAS EMPH COVERS!LIPIDN Performed By: #### L 506.1000, L500.4050, L100.0100, L500.4100, L503.0105, L506.0250 ####[facility] [address] [place], [address] Employee Profileon 4 Albumin [Mass/Vol] 4.0 g/dL Normal 3.2-5.0 [facility] Comment on above: Performed By: #### L 500.2900, L100.0200 ####[facility] [address] [place], [address] Albumin/Globulin [Mass ratio] 1.1 {ratio} Normal 0.9-2.4 [facility] Comment on above: Performed By: #### L 500.2900, L100.0200 ####[facility] [address] [place], [address] ALK P 60 U/L Normal 45-117 [facility] Comment on above: Performed By: #### L 500.2900, L100.0200 ####[facility] [address] [place], [address] ALT [Catalytic activity/Vol] 22 U/L Normal 13-56 [facility] Comment on above: Performed By: #### L 500.2900, L100.0200 ####[facility] [address] [place], [address] AST [Catalytic activity/Vol] 24 U/L Normal 15-37 [facility] Comment on above: Performed By: #### L 500.2900, L100.0200 ####[facility] [address] [place], [address] Bilirubin [Mass/Vol] 0.50 mg/dL Normal 0.20-1.00 [facility] Comment on above: Result Comment: For patients on eltrombopag therapy, use of Dimension [place] TBIL is not recommended. Performed By: #### L 500.2900, L100.0200 ####[facility] [address] [place], [address] Bilirubin.direct [Mass/Vol] 0.15 mg/dL Normal 0.00-0.30 [facility] Comment on above: Performed By: #### L 500.2900, L100.0200 ####[facility] [address] [place], [address] BUN/CRE 20.4 RATIO High 10-20 [facility] Comment on above: Performed By: #### L 500.2900, L100.0200 ####[facility] [address] [place], [address] CA,Total 10.1 mg/dL Normal 8.5-10.1 [facility] Comment on above: Performed By: #### L 500.2900, L100.0200 ####[facility] [address] [place], [address] Chloride [Moles/Vol] 108 mmol/L High 98-107 [facility] Comment on above: Performed By: #### L 500.2900, L100.0200 ####[facility] [address] [place], [address] CHOL:HDL 2.20 Normal [facility] Comment on above: Performed By: #### L 500.2900, L100.0200 ####[facility] [address] [place], [address] Cholesterol [Mass/Vol] 213 mg/dL High 200 [facility] Comment on above: Result Comment: <200 mg/dL Desirable 200-240 mg/dL Borderline >240 mg/dL High Risk Performed By: #### L 500.2900, L100.0200 ####[facility] [address] [place], [address] Cholesterol in HDL [Mass/Vol] 95 mg/dL Normal [facility] Comment on above: Result Comment: The drugs N-Acetylcysteine and Metamizole may falsely depress this assay. Reference Range HDL <40 mg/dL Low HDL Cholesterol HDL >or= 60 mg/dL High HDL Cholesterol Performed By: #### L 500.2900, L100.0200 ####[facility] [address] [place], [address] Cholesterol in LDL [Mass/Vol] 109 mg/dL Normal 0-130 [facility] Comment on above: Performed By: #### L 500.2900, L100.0200 ####[facility] [address] [place], [address] Cholesterol in VLDL [Mass/Vol] 9 mg/dL Normal 5-40 [facility] Comment on above: Performed By: #### L 500.2900, L100.0200 ####[facility] [address] [place], [address] CO2 [Moles/Vol] 26.0 mmol/L Normal 21.0-32.0 [facility] Comment on above: Performed By: #### L 500.2900, L100.0200 ####[facility] [address] [place], [address] Creatinine [Mass/Vol] 0.74 mg/dL Normal 0.55-1.02 [facility] Comment on above: Result Comment: The validity of the calculated GFR GFRAA in patients over 70 years has not been determined. Clinical correlation is essential. Performed By: #### L 500.2900, L100.0200 ####[facility] [address] [place], [address] EST GFR - AA 100 mL/min Normal >60 [facility] Comment on above: Result Comment: Afri can [place] GFR Calc Performed By: #### L 500.2900, L100.0200 ####[facility] [address] [place], [address] GAP 3 Low 5-15 [facility] Comment on above: Performed By: #### L 500.2900, L100.0200 ####[facility] [address] [place], [address] GFR/1.73 sq M.predicted among non-blacks MDRD (S/P/Bld) [Vol rate/Area] 83 mL/min/{1.73_m2} Normal >60 [facility] Comment on above: Result Comment: Non- GFR Calc Performed By: #### L 500.2900, L100.0200 ####[facility] [address] [place], [address] Globulin (S) [Mass/Vol] 3.5 g/dL Normal 2.2-4.2 [facility] Comment on above: Performed By: #### L 500.2900, L100.0200 ####[facility] [address] [place], [address] Glucose [Mass/Vol] 102 mg/dL Normal 74-106 [facility] Comment on above: Result Comment: Fast ing Glucose result from 100 to 125 mg/dL suggests IMPAIRED HOMEOSTASIS per A.D.A. criteria. Performed By: #### L 500.2900, L100.0200 ####[facility] [address] [place], [address] LDH 100 U/L Normal 84-246 [facility] Comment on above: Performed By: #### L 500.2900, L100.0200 ####[facility] [address] [place], [address] Phosphate [Mass/Vol] 2.9 mg/dL Normal 2.5-4.9 [facility] Comment on above: Performed By: #### L 500.2900, L100.0200 ####[facility] [address] [place], [address] Potassium [Moles/Vol] 4.0 mmol/L Normal 3.5-5.1 [facility] Comment on above: Performed By: #### L 500.2900, L100.0200 ####[facility] [address] [place], [address] Sodium [Moles/Vol] 137 mmol/L Normal 136-145 [facility] Comment on above: Performed By: #### L 500.2900, L100.0200 ####[facility] [address] [place], [address] T PROT 7.5 g/dL Normal 6.4-8.2 [facility] Comment on above: Performed By: #### L 500.2900, L100.0200 ####[facility] [address] [place], [address] Triglyceride [Mass/Vol] 43 mg/dL Normal [facility] Comment on above: Result Comment: The drugs N-Acetylcysteine and Metamizole may falsely depress this assay. Serum Triglycerides Reference Interval Normal <150 mg/dL Borderline high 150 - 199 mg/dL High 200 - 499 mg/dL Very High > or = 500 mg/dL Performed By: #### L 500.2900, L100.0200 ####[facility] [address] [place], [address] Urea nitrogen [Mass/Vol] 15 mg/dL Normal 7-18 [facility] Comment on above: Performed By: #### L 500.2900, L100.0200 ####[facility] [address] [place], [address] URIC 3.8 mg/dL Normal 2.6-6.0 [facility] Comment on above: Result Comment: The drugs N-Acetylcysteine and Metamizole may falsely depress this assay. Performed By: #### L 500.2900, L100.0200 ####[facility] [address] [place], [address] Folates, (Folic Acid)on 08-29 FOLATES 14.20 ng/mL Normal 3.1-55.4 [facility] Comment on above: Order Comment: PLEAS E ADD A LIPID THAT WAS MISSED FROM THIS MORNINGCANCEL WAS EMPH COVERS!LIPIDN Performed By: #### L 506.1000, L500.4050, L100.0100, L500.4100, L503.0105, L506.0250 ####[facility] [address] [place], [address] Lipid Profileon 09-20-2024 Cholesterol [Mass/Vol] 208 mg/dL High 200 [facility] Comment on above: Order Comment: PLEAS E ADD A LIPID THAT WAS MISSED FROM THIS MORNINGCANCEL WAS EMPH COVERS!LIPIDN Result Comment: <200 mg/dL Desirable 200-240 mg/dL Borderline >240 mg/dL High Risk Performed By: #### L 506.1000, L500.4050, L100.0100, L500.4100, L503.0105, L506.0250 ####[facility] [address] [place], [address] Cholesterol in HDL [Mass/Vol] 93 mg/dL Normal [facility] Comment on above: Order Comment: PLEAS E ADD A LIPID THAT WAS MISSED FROM THIS MORNINGCANCEL WAS EMPH COVERS!LIPIDN Result Comment: The drugs N-Acetylcysteine and Metamizole may falsely depress this assay. Reference Range HDL <40 mg/dL Low HDL Cholesterol HDL >or= 60 mg/dL High HDL Cholesterol Performed By: #### L 506.1000, L500.4050, L100.0100, L500.4100, L503.0105, L506.0250 ####[facility] [address] [place], [address] Cholesterol in LDL [Mass/Vol] 106 mg/dL Normal 0-130 [facility] Comment on above: Order Comment: PLEAS E ADD A LIPID THAT WAS MISSED FROM THIS MORNINGCANCEL WAS EMPH COVERS!LIPIDN Performed By: #### L 506.1000, L500.4050, L100.0100, L500.4100, L503.0105, L506.0250 ####[facility] [address] [place], [address] Cholesterol in VLDL [Mass/Vol] 9 mg/dL Normal 5-40 [facility] Comment on above: Order Comment: PLEAS E ADD A LIPID THAT WAS MISSED FROM THIS MORNINGCANCEL WAS EMPH COVERS!LIPIDN Performed By: #### L 506.1000, L500.4050, L100.0100, L500.4100, L503.0105, L506.0250 ####[facility] [address] [facility] [place], [address] Triglyceride [Mass/Vol] 47 mg/dL Normal [facility] Comment on above: Order Comment: PLEAS E ADD A LIPID THAT WAS MISSED FROM THIS MORNINGCANCEL WAS EMPH COVERS!LIPIDN Result Comment: The drugs N-Acetylcysteine and Metamizole may falsely depress this assay. Serum Triglycerides Reference Interval Normal <150 mg/dL Borderline high 150 - 199 mg/dL High 200 - 499 mg/dL Very High > or = 500 mg/dL Performed By: #### L 506.1000, L500.4050, L100.0100, L500.4100, L503.0105, L506.0250 ####[facility] [address] [place], [address] Vitamin B12on 09-20-2024 Cobalamin (Vitamin B12) [Mass/Vol] 466 pg/mL Normal 211-911 [facility] Comment on above: Order Comment: GABRIEL Coburn WAS EMPH COVERS! Performed By: #### L 506.1000, L500.4050, L100.0100, L500.4100, L503.0105, L506.0250 ####[facility] [address] [place], [address] Vitamin D,25 Hydroxyon 09-20 Vitamin D 25-OH 44.3 ng/mL Normal [facility] Comment on above: Order Comment: GABRIEL L WAS EMPH COVERS! Result Comment: Charo min D 25(OH) Status Range Deficiency <20 ng/mL (50nmol/L) Insufficiency 20 - 30 ng/mL (50 - 75 nmol/L) Sufficiency 30 - 100 ng/mL (75 - 250 nmol/L) Toxicity >100 ng/mL (>250 nmol/L) Performed By: #### L 506.1000, L500.4050, L100.0100, L500.4100, L503.0105, L506.0250 ####[facility] [id number] [facility] [place], [address] Coronary Angiography CTon Coronary Angiography CT [facility] Imaging Services [address] [place] [address] 07/31/24 0629 MR#: [id number] Acct: [id number] Name: ERIN DYSON APOLLO Rep #: [id number] : 1955 68 From: Phillip Borrego MD PCP: Dr. Rajat Norton, DO Status:REG CLI Y Location: CT Calcium Scoring Date of Study:: 07/24/24 Coronary Calcium Scoring: High-resolution Computed Tomographic imaging of the chest was performed on [07/24/2024], with particular attention paid to the coronary arteries. Images from the examination were analyzed for the presence and extent of coronary artery calcification , using coronary calcium quantification software. The patient tolerated the procedure well and there were no complications. The results of the coronary calcification analysis are provided below. Findings Coronary Artery Left Main (LM): 0 Left Anterior Descending (LAD): 9.79 Left Circumflex (LCX): 0 Right Coronary Artery (RCA): 0 Total Agatston Score: 9.79 Percentile Rankinth to 50th percentile Calcium Scoring Interpretation: Different methods to categorize the overall amount of coronary plaque. Overall amount CAC SIS Visual of coronary plaque P1 Mild -100 <2 1-2 vessels with mild amount of plaque P2 Moderate 101-300 3-4 1-2 vessels with moderate amount, 3 vessels with mild amount of plaque P3 Severe 301-999 5-7 3 vessels with moderate amount, 1 vessel with severe amount of plaque P4 Extensive >1000 >8 2-3 vessels with severe amount of plaque Calcium Score: Mild: 1-2 vessels w/mild amount of plaque Conclusion: Minimal atherosclerotic plaquing noted 07/31/24 0630 Date Phillip Borrego MD Cosigner Signature (if applicable): Date CC: Dr. Phillip Borrego MD; Dr. Rajat Norton DO Signed Normal [facility] Limited Chest CT Cardiac Onl yon 07-24-[address] Cardiac Only [facility] Imaging Services [address] [place] [id number] Cardiac Only MR#: [id number] Acct: [id number] Name: ERIN DYSON APOLLO Rep #: [id number] : 1955 F 68 From: Rafal rosas MD PCP: Dr. Rajat Norton DO Status: REG CLI Study: Limited Chest CT Cardiac Only Date of Exam: Exam# [id number] Ordering Dr: Rajat Norton DO [id number] STUDY: CT CHEST WITHOUT CONTRAST REASON FOR EXAM: Female, 68 years old. HYPERLIPIDEMIA LIMITED CHEST OVERREAD ONLY RADIATION DOSAGE (If Supplied By Facility): CTDIvol = ( 12.19 ) mGy, DLP = ( 195.04 ) mGycm TECHNIQUE: Transaxial imaging was performed without the administration of intravenous contrast material. Individualized dose optimization techniques were used for this CT. COMPARISON: No relevant priors. FINDINGS: CHEST The lungs are normal. There is no demonstrated pleural abnormality. There are calcifications of the coronary arteries. There are small lymph nodes within the mediastinum, which are normal in size and morphology most compatible with reactive lymph hyperplasia. Normal hilar regions. Normal unenhanced pulmonary arteries. Normal aorta arch and descending thoracic aorta. Normal osseous structures. There is a 1.5 cm cyst in the upper posterior left kidney. CT/Limited Chest CT Cardiac Only IMPRESSION: Coronary artery calcification. Electronically Signed: Rafal Dos Santos MD at 15:04 EDT Reading Location ID and State: [facility] / [place] , Service support , CC: Dr. Rajat Norton DO Professional Nurse: Signed Normal [facility] Upper Ext Joint Only(Routine )on 07-05-2024 Upper Ext Joint Only(Routine) [facility] Imaging Services [address] [place] [address] Upper Ext Joint Only(Routine) MR#: [id number] Acct: [id number] Name: ERIN DYSON Rep #: [id number] : 1955 F 68 From: Sky Mejia MD PCP: Dr. Rajat Norton DO Status: REG CLI Study: Upper Ext Joint Only(Routine) Date of Exam: 0 07/05/24 Exam# [id number] Ordering Dr: Rajat Norton DO [id number] STUDY: MRI LEFT SHOULDER REASON FOR EXAM: Female, 68 years old. Left shoulder pain. TECHNIQUE: Standardized fat and water weighted pulse sequences were obtained in all 3 orthogonal planes. COMPARISON: Left shoulder MRI dated 07/25/2023. FINDINGS: There is a full-thickness tear of the distal posterior supraspinatus tendon, overall measuring 2.6 cm in length (coronal T2 series 5 images 9-10) and 0.9 cm in width (sagittal T2 series 7 images 15-17). Normal infraspinatus tendon. There is mild subscapularis tendinosis. Normal teres minor tendon. There is mild atrophy and fatty infiltration of the supraspinatus muscle. Normal infraspinatus muscle. Normal subscapularis muscle. Normal teres minor muscle. There is a moderate glenohumeral joint effusion with fluid communicating into the subacromial-subdeltoi d bursa. Intact humeral head and visualized proximal humerus. Normal biceps labral complex. Normal intracapsular long biceps tendon. Normal labrum. Normal capsulo-ligamentous complex. Normal rotator interval. There is mild acromioclavicular arthrosis. There is a Type II morphology (curved), with a neutral orientation. Normal visualized coracohumeral and coracoacromial ligaments. Normal quadrilateral space. Normal axillary space. Normal deltoid muscle. Normal trapezius muscle. MRI/Upper Ext Joint Only(Routine) IMPRESSION: 2.6 x 0.9 cm full-thickness tear of the distal posterior supraspinatus tendon. Mild atrophy and fatty infiltration of the supraspinatus muscle Mild subscapularis tendinosis. Mild acromioclavicular arthrosis. Moderate glenohumeral joint effusion with fluid communicating into the subacromial-subdeltoi d bursa. Electronically Signed: Sky Mejia MD at 15:01 EDT , CC: Dr. Rajat Norton, Professional Nurse: Signed Normal [facility] Basic Metabolic Profile (BMP )on 06-07-2024 BUN/CRE 19.5 RATIO Normal 10-20 [facility] Comment on above: Performed By: #### L 100.0500, L500.2500 #### [facility] [address] [place], [address] CA,Total 9.9 mg/dL Normal 8.5-10.1 [facility] Comment on above: Performed By: #### L 100.0500, L500.2500 #### [facility] [address] [place], [address] Chloride [Moles/Vol] 106 mmol/L Normal 98-107 [facility] Comment on above: Performed By: #### L 100.0500, L500.2500 #### [facility] [address] [place], [address] CO2 [Moles/Vol] 28.0 mmol/L Normal 21.0-32.0 [facility] Comment on above: Performed By: #### L 100.0500, L500.2500 #### [facility] [address] [place], [address] Creatinine [Mass/Vol] 0.77 mg/dL Normal 0.55-1.02 [facility] Comment on above: Result Comment: The validity of the calculated GFR GFRAA in patients over 70 years has not been determined. Clinical correlation is essential. Performed By: #### L 100.0500, L500.2500 #### [facility] [address] [place], [address] EST GFR - AA 96 mL/min Normal >60 [facility] Comment on above: Result Comment: Afri can [place] GFR Calc Performed By: #### L 100.0500, L500.2500 #### [facility] [address] [place], [address] GAP 5 Normal 5-15 [facility] Comment on above: Performed By: #### L 100.0500, L500.2500 #### [facility] [address] [place], [address] GFR/1.73 sq M.predicted among non-blacks MDRD (S/P/Bld) [Vol rate/Area] 79 mL/min/{1.73_m2} Normal >60 [facility] Comment on above: Result Comment: Non- GFR Calc Performed By: #### L 100.0500, L500.2500 #### [facility] [address] [place], [address] Glucose [Mass/Vol] 125 mg/dL High 74-106 [facility] Comment on above: Result Comment: Fast ing Glucose result from 100 to 125 mg/dL suggests IMPAIRED HOMEOSTASIS per A.D.A. criteria. Performed By: #### L 100.0500, L500.2500 #### [facility] [address] [place], [address] Potassium [Moles/Vol] 3.9 mmol/L Normal 3.5-5.1 [facility] Comment on above: Performed By: #### L 100.0500, L500.2500 #### [facility] [address] [place], [address] Sodium [Moles/Vol] 139 mmol/L Normal 136-145 [facility] Comment on above: Performed By: #### L 100.0500, L500.2500 #### [facility] [address] [place], [address] Urea nitrogen [Mass/Vol] 15 mg/dL Normal 7-18 [facility] Comment on above: Performed By: #### L 100.0500, L500.2500 #### [facility] [address] [place], [address] CBC-Complete Blood Cnt No Di ffon 06-07-2024 Erythrocyte distribution width (RBC) [Ratio] 12.3 % Normal 11.6-14.6 [facility] Comment on above: Performed By: #### L 100.0500, L500.2500 #### [facility] [address] [place], [address] Hematocrit (Bld) [Volume fraction] 39.8 % Normal 37-47 [facility] Comment on above: Performed By: #### L 100.0500, L500.2500 #### [facility] [address] [place], [address] Hemoglobin (Bld) [Mass/Vol] 13.1 g/dL Normal 12.0-15.0 [facility] Comment on above: Performed By: #### L 100.0500, L500.2500 #### [facility] [address] [place], [address] MCH (RBC) [Entitic mass] 30.2 pg Normal 27.0-32.0 [facility] Comment on above: Performed By: #### L 100.0500, L500.2500 #### [facility] [address] [place], [address] MCHC (RBC) [Mass/Vol] 32.9 g/dL Normal 32-36 [facility] Comment on above: Performed By: #### L 100.0500, L500.2500 #### [facility] [address] [place], [address] MCV (RBC) [Entitic vol] 91.7 fL Normal 81-99 [facility] Comment on above: Performed By: #### L 100.0500, L500.2500 #### [facility] [address] [place], [address] Platelet mean volume (Bld) [Entitic vol] 9.3 fL Normal 6.2-12.0 [facility] Comment on above: Performed By: #### L 100.0500, L500.2500 #### [facility] [address] [place], [address] Platelets (Bld) [#/Vol] 230 10*3/uL Normal 150-450 [facility] Comment on above: Performed By: #### L 100.0500, L500.2500 #### [facility] [address] [place], [address] RBC (Bld) [#/Vol] 4.34 10*6/uL Normal 4.2-5.4 [facility] Comment on above: Performed By: #### L 100.0500, L500.2500 #### [facility] [address] [place], [address] RDW SD 41.3 fl Normal 35.1-43.9 [facility] Comment on above: Performed By: #### L 100.0500, L500.2500 #### [facility] [address] [place], [address] WBC (Bld) [#/Vol] 5.6 10*3/uL Normal 4.4-11.0 [facility] Comment on above: Performed By: #### L 100.0500, L500.2500 #### [facility] [address] [place], [address] CNOVon 05-04-2024 CNOV Office Visit ([facility] ) ERIN DYSON ([id number]) 1955 F Date Time Provider Department 05/04/24 [...] expresses no interest in being seen in [place] at the [facility] and would not want [...] that at this time, lost connection with [facility] due to system downtime. MOCA was completed. [...] General: Aw (more content not included)... Normal [facility] SCRN MAMM (CAD)W/ARTI BILATo n 05-01-2024 SCRN MAMM (CAD)W/ARTI BILAT [facility] Imaging Services [address] [place] [address] SCRN MAMM (CAD)W/ARTI BILAT MR#: [id number] Acct: [id number] Name: ERIN DYSON APOLLO Rep #: [id number] : 1955 F 68 From: Rafal rosas MD PCP: Dr. Rajat Norton DO Status: [facility] Study: SCRN MAMM (CAD)W/ARTI BILAT Date of Exam: 03/21 Exam# [id number] Ordering Dr: Rajat Norton DO [id number] MAMMOGRAPHY - BILATERAL SCREENING REASON FOR EXAM: Female, 68 years old. Routine annual screening examination. PERTINENT HISTORY: Grandmother with breast cancer. Prior left breast biopsy. TECHNIQUE: Digital bilateral breast arti (3D mammographic acquisition) in the CC and MLO projections. 2-D mediolateral oblique (MLO) and craniocaudad (CC) views of both breasts were obtained. CAD: Full Field Digital Mammography with Computer Added Detection was performed. COMPARISON: Comparison is made with prior study April 20, 2023. FINDINGS: Breast Composition: The breasts are extremely dense, which lowers the sensitivity of mammography. There are no dominant masses or suspicious calcifications. A tissue clip marker is seen in the upper deep lateral aspect of the left breast. No other [...] delay biopsy of a clinically suspicious abnormality. [id number] Electronically Signed: Rafal Dos Santos MD at 14:56 EDT , CC: Dr. Rajat Norton, DO Professional Nurse: Signed Normal [facility] Absolute lymphocyte countOrd ered By: HEALTH ASSESSMENT on 03-22-2024 Lymphocytes Auto (Unsp spec) [#/Vol] 1.40 10*3/uL 0.83-4.51 [facility] Basophil percentageOrdered B y: HEALTH ASSESSMENT on 03-22-2024 Basophil percentage 2.8 mg/dL 2.5-4.9 [facility] Bilirubin [Mass/Vol] 0.60 mg/dL 0.20-1.00 [facility] Comment on above: For patients on eltr ombopag therapy, use of Dimension [place] TBIL is not recommended. Chloride [Moles/Vol] 104 mmol/L 98-107 [facility] Cholesterol [Mass/Vol] 230 mg/dL <200 [facility] Comment on above: <200 mg/dL Desirable 200-240 mg/dL Borderline >240 mg/dL High Risk Glucose [Mass/Vol] 89 mg/dL 74-106 [facility] Hemoglobin (Bld) [Mass/Vol] 13.5 g/dL 12.0-15.0 [facility] LDH [Catalytic activity/Vol] 103 U/L 84-246 [facility] Neutrophils (Bld) [#/Vol] 2.3 10*3/uL 2.0-7.7 [facility] Potassium [Moles/Vol] 3.9 mmol/L 3.5-5.1 [facility] Protein [Mass/Vol] 7.4 g/dL 6.4-8.2 [facility] Sodium [Moles/Vol] 139 mmol/L 136-145 [facility] Triglyceride [Mass/Vol] 47 mg/dL <199 [facility] Comment on above: The drugs N-Acetylcy steine and Metamizole may falsely depress this assay.Serum Triglycerides Reference Interval Normal <150 mg/dL Borderline high 150 - 199 mg/dL High 200 - 499 mg/dL Very High > or = 500 mg/dL WBC (Bld) [#/Vol] 4.1 10*3/uL 4.4-11.0 [facility] Bilirubin Test strip Ql (U)O rdered By: HEALTH ASSESSMENT on 03-22-2024 Bilirubin Ql (U) Negative Negative [facility] Blood band neutrophil count as percentage of total leukocytesOrdered By: HEALTH ASSESSMENT on 03-22-2024 Band form neutrophils/100 WBC (Bld) 54.4 % 47-70 [facility] Determination of erythrocyte mean corpuscular volume (MCV)Ordered By: HEALTH ASSESSMENT on 03-22-2024 MCV (RBC) [Entitic vol] 94.7 fL 81-99 [facility] Direct bilirubinOrdered By: HEALTH ASSESSMENT on 03-22-2024 Bilirubin.direct [Mass/Vol] 0.15 mg/dL 0.00-0.30 [facility] Erythrocyte distribution wid th ratioOrdered By: HEALTH ASSESSMENT on 03-22-2024 Erythrocyte distribution width (RBC) [Ratio] 12.6 % 11.6-14.6 [facility] Erythrocyte distribution wid th standard deviationOrdered By: HEALTH ASSESSMENT on 03-22-2024 Erythrocyte distribution width (RBC) [Entitic vol] 44.2 fL 35.1-43.9 [facility] Hematocrit Auto (Bld) [Volum e fraction]Ordered By: HEALTH ASSESSMENT on 03-22-2024 Hematocrit (Bld) [Volume fraction] 41.3 % 37-47 [facility] Ketones Test strip Ql (U)Ord ered By: HEALTH ASSESSMENT on 03-22-2024 Ketones Ql (U) Negative Negative [facility] - Chemistry and C hemistry - challengeOrdered By: HEALTH ASSESSMENT on 03-22-2024 Albumin/Globulin [Mass ratio] 1.2 {ratio} 0.9-2.4 [facility] ALP [Catalytic activity/Vol] 55 U/L 45-117 [facility] ALT [Catalytic activity/Vol] 26 U/L 13-56 [facility] Cholesterol in HDL [Mass/Vol] 93 mg/dL >40 [facility] Comment on above: The drugs N-Acetylcy steine and Metamizole may falsely depress this assay. Reference Range HDL <40 mg/dL Low HDL Cholesterol HDL >or= 60 mg/dL High HDL Cholesterol Cholesterol in LDL [Mass/Vol] 128 mg/dL 0-130 [facility] Cholesterol.total/Maggie sterol in HDL [Mass ratio] 2.50 {ratio} [facility] CO2 [Moles/Vol] 28.0 mmol/L 21.0-32.0 [facility] Globulin (S) [Mass/Vol] 3.4 g/dL 2.2-4.2 [facility] Urea nitrogen/Creatinine [Mass ratio] 19.5 mg/mg 10-20 [facility] - Chemistry and C hemistry - challengeOrdered By: Rajat Norton on 03-22-2024 Cobalamin (Vitamin B12) [Mass/Vol] 585 pg/mL 211-911 [facility] - Hematology and Cell countsOrdered By: HEALTH ASSESSMENT on 03-22-2024 MCH (RBC) [Entitic mass] 31.0 pg 27.0-32.0 [facility] MCHC (RBC) [Mass/Vol] 32.7 g/dL 32-36 [facility] Nucleated RBC (Bld) [#/Vol] 0.00 10*3/uL 0-5 [facility] Nucleated RBC/100 WBC (Bld) [Ratio] 0 % 0-5 [facility] Platelet mean volume (Bld) [Entitic vol] 9.1 fL 6.2-12.0 [facility] Platelets (Bld) [#/Vol] 224 10*3/uL 150-450 [facility] Nitrite Test strip Ql (U)Ord ered By: HEALTH ASSESSMENT on 03-22-2024 Nitrite Ql (U) Negative Negative [facility] No Panel InformationOrdered By: HEALTH ASSESSMENT on 03-22-2024 Estimated GFR (MDRD) Amer 96 mL/min >60 [facility] Comment on above: GFR Calc Estimated GFR (MDRD) Non-Af Amer 79 mL/min >60 [facility] Comment on above: Non- GFR Calc VLDL Cholesterol 9 mg/dL 5-40 [facility] No Panel InformationOrdered By: Rajat Fast on 03-22-2024 Vitamin D 25-Hydroxy 53.6 ng/mL [facility] Comment on above: Vitamin D 25(OH) Sta tus Range Deficiency <20 ng/mL (50nmol/L) Insufficiency 20 - 30 ng/mL (50 - 75 nmol/L) Sufficiency 30 - 100 ng/mL (75 - 250 nmol/L) Toxicity >100 ng/mL (>250 nmol/L) Protein Test strip Ql (U)Ord ered By: HEALTH ASSESSMENT on 03-22-2024 Protein Ql (U) Negative Negative [facility] RBC Auto (Bld) [#/Vol]Ordere d By: HEALTH ASSESSMENT on 03-22-2024 RBC (Bld) [#/Vol] 4.36 10*6/uL 4.2-5.4 [facility] Serum or plasma calcium peggy urement (mass/volume)Ordered By: HEALTH ASSESSMENT on 03-22-2024 Calcium [Mass/Vol] 9.8 mg/dL 8.5-10.1 [facility] Serum or plasma creatinine m easurement (mass/volume)Ordered By: HEALTH ASSESSMENT on 03-22-2024 Creatinine [Mass/Vol] 0.77 mg/dL 0.55-1.02 [facility] Comment on above: The validity of the calculated GFR & GFRAA in patients over 70 years has not been determined. Clinical correlation is essential. Serum or plasma thyroid stim ulating hormone (TSH) measurement (units/volume)Ordered By: Rajat Fast on 03-22-2024 TSH Qn 2.54 uIU/mL 0.358-3.74 [facility] Serum or plasma urea nitroge n measurement (mass/volume)Ordered By: HEALTH ASSESSMENT on 03-22-2024 Urea nitrogen [Mass/Vol] 15 mg/dL 7-18 [facility] Serum or plasma uric acid me asurement (mass/volume)Ordered By: HEALTH ASSESSMENT on 03-22-2024 Urate [Mass/Vol] 3.8 mg/dL 2.6-6.0 [facility] Comment on above: The drugs N-Acetylcy steine and Metamizole may falsely depress this assay. Thin prep Papanicolaou smear with manual screeningOrdered By: HEALTH ASSESSMENT on 03-22-2024 Thin prep Papanicolaou smear with manual screening 4.0 g/dL 3.2-5.0 [facility] Thin prep Papanicolaou smear with manual screening 26 U/L 15-37 [facility] Thin prep Papanicolaou smear with manual screening 7 5-15 [facility] Urine blood detectionOrdered By: HEALTH ASSESSMENT on 03-22-2024 RBC Ql (U) Negative Negative [facility] Urine clarityOrdered By: A [facility] ASSESSMENT on 03-22-2024 Clarity (U) Clear Clear [facility] Urine color determinationOrd ered By: HEALTH ASSESSMENT on 03-22-2024 Color (U) Straw Yellow [facility] Urine glucose detectionOrder ed By: HEALTH ASSESSMENT on 03-22-2024 Glucose Ql (U) Normal mg/dl Normal [facility] Urine leukocyte esterase det ection by dipstickOrdered By: HEALTH ASSESSMENT on 03-22-2024 Leukocyte esterase Test strip Ql (U) Negative Negative [facility] Urine pHOrdered By: HEALTH A SSESSMENT on 03-22-2024 pH (U) 6.5 [pH] 5.0 - 8.0 [facility] Urine specific gravity measu rementOrdered By: HEALTH ASSESSMENT on 03-22-2024 Specific gravity (U) [Rel density] 1.005 1.002-1.030 [facility] Urine urobilinogen measureme ntOrdered By: HEALTH ASSESSMENT on 03-22-2024 Urobilinogen Ql (U) Normal mg/dl Normal [facility] - Microbiology an d Antimicrobial susceptibilityon 12-20-2023 SARS-CoV-2 (COVID-19) RNA HUSSAIN+probe Ql (Unsp spec) Detected [facility] No Panel Informationon 12-20 POC Nasal Swab Influenza A,B Not detected [facility] POC Nasal Swab RSV Not detected [facility] No Panel Informationon 10-04 [facility] Absolute lymphocyte countOrd ered By: HEALTH ASSESSMENT on 09-15-2023 Lymphocytes Auto (Unsp spec) [#/Vol] 1.16 10*3/uL 0.83-4.51 [facility] Absolute reticulocyte countO rdered By: HEALTH ASSESSMENT on 09-15-2023 Reticulocytes (Bld) [#/Vol] 0.00 10*3/uL 0-5 [facility] Basophil percentageOrdered B y: HEALTH ASSESSMENT on 09-15-2023 Basophil percentage 2.8 mg/dL 2.5-4.9 [facility] Bilirubin [Mass/Vol] 0.40 mg/dL 0.20-1.00 [facility] Comment on above: For patients on eltr ombopag therapy, use of Dimension [place] TBIL is not recommended. Chloride [Moles/Vol] 104 mmol/L 98-107 [facility] Cholesterol [Mass/Vol] 210 mg/dL <200 [facility] Comment on above: <200 mg/dL Desirable 200-240 mg/dL Borderline >240 mg/dL High Risk Glucose [Mass/Vol] 98 mg/dL 74-106 [facility] LDH [Catalytic activity/Vol] 109 U/L 84-246 [facility] Neutrophils (Bld) [#/Vol] 3.9 10*3/uL 2.0-7.7 [facility] Potassium [Moles/Vol] 4.1 mmol/L 3.5-5.1 [facility] Protein [Mass/Vol] 7.2 g/dL 6.4-8.2 [facility] Sodium [Moles/Vol] 137 mmol/L 136-145 [facility] Triglyceride [Mass/Vol] 49 mg/dL <199 [facility] Comment on above: The drugs N-Acetylcy steine and Metamizole may falsely depress this assay.Serum Triglycerides Reference Interval Normal <150 mg/dL Borderline high 150 - 199 mg/dL High 200 - 499 mg/dL Very High > or = 500 mg/dL WBC (Bld) [#/Vol] 5.5 10*3/uL 4.4-11.0 [facility] Blood erythrocytes count (nu mber/volume)Ordered By: HEALTH ASSESSMENT on 09-15-2023 RBC (Bld) [#/Vol] 4.29 10*6/uL 4.2-5.4 [facility] Blood hemoglobin measurement (mass/volume)Ordered By: HEALTH ASSESSMENT on 09-15-2023 Hemoglobin (Bld) [Mass/Vol] 13.3 g/dL 12.0-15.0 [facility] Blood platelet mean volumeOr dered By: HEALTH ASSESSMENT on 09-15-2023 Platelet mean volume (Bld) [Entitic vol] 8.9 fL 6.2-12.0 [facility] Determination of erythrocyte mean corpuscular volume (MCV)Ordered By: HEALTH ASSESSMENT on 09-15-2023 MCV (RBC) [Entitic vol] 94.9 fL 81-99 [facility] Direct bilirubinOrdered By: HEALTH ASSESSMENT on 09-15-2023 Bilirubin.direct [Mass/Vol] 0.11 mg/dL 0.00-0.30 [facility] Hematocrit Auto (Bld) [Volum e fraction]Ordered By: HEALTH ASSESSMENT on 09-15-2023 Hematocrit (Bld) [Volume fraction] 40.7 % 37-47 [facility] - Chemistry and C hemistry - challengeOrdered By: HEALTH ASSESSMENT on 09-15-2023 ALP [Catalytic activity/Vol] 54 U/L 45-117 [facility] ALT [Catalytic activity/Vol] 29 U/L 13-56 [facility] Cholesterol.total/Maggie sterol in HDL [Mass ratio] 2.30 {ratio} [facility] CO2 [Moles/Vol] 28.0 mmol/L 21.0-32.0 [facility] Globulin (S) [Mass/Vol] 3.6 g/dL 2.2-4.2 [facility] Urea nitrogen/Creatinine [Mass ratio] 18.0 mg/mg 10-20 [facility] - Hematology and Cell countsOrdered By: HEALTH ASSESSMENT on 09-15-2023 Erythrocyte distribution width (RBC) [Entitic vol] 45.0 fL 35.1-43.9 [facility] Erythrocyte distribution width (RBC) [Ratio] 12.9 % 11.6-14.6 [facility] MCH (RBC) [Entitic mass] 31.0 pg 27.0-32.0 [facility] Nucleated RBC/100 WBC (Bld) [Ratio] 0 % 0-5 [facility] MCHC Auto (RBC) [Mass/Vol]Or dered By: HEALTH ASSESSMENT on 09-15-2023 MCHC (RBC) [Mass/Vol] 32.7 g/dL 32-36 [facility] No Panel InformationOrdered By: HEALTH ASSESSMENT on 09-15-2023 Estimated GFR (MDRD) Amer 87 mL/min >60 [facility] Comment on above: GFR Calc Estimated GFR (MDRD) Non-Af Amer 72 mL/min >60 [facility] Comment on above: Non- GFR Calc Platelets bldOrdered By: HEA LT ASSESSMENT on 09-15-2023 Platelets (Bld) [#/Vol] 211 10*3/uL 150-450 [facility] Segmented neutrophils/100 WB C Auto (Bld)Ordered By: HEALTH ASSESSMENT on 09-15-2023 Segmented neutrophils/100 WBC (Bld) 70.0 % 47-70 [facility] Serum or plasma albumin peggy urement (mass/volume)Ordered By: HEALTH ASSESSMENT on 09-15-2023 Albumin [Mass/Vol] 3.6 g/dL 3.2-5.0 [facility] Serum or plasma albumin/glob ulin mass ratioOrdered By: HEALTH ASSESSMENT on 09-15-2023 Albumin/Globulin [Mass ratio] 1.0 {ratio} 0.9-2.4 [facility] Serum or plasma calcium peggy urement (mass/volume)Ordered By: HEALTH ASSESSMENT on 09-15-2023 Calcium [Mass/Vol] 9.3 mg/dL 8.5-10.1 [facility] Serum or plasma cholesterol in HDL measurement (mass/volume)Ordered By: HEALTH ASSESSMENT on 09-15-2023 Cholesterol in HDL [Mass/Vol] 92 mg/dL >40 [facility] Comment on above: The drugs N-Acetylcy steine and Metamizole may falsely depress this assay. Reference Range HDL <40 mg/dL Low HDL Cholesterol HDL >or= 60 mg/dL High HDL Cholesterol Serum or plasma cholesterol in VLDL measurement (mass/volume)Ordered By: HEALTH ASSESSMENT on 09-15-2023 Cholesterol in VLDL [Mass/Vol] 10 mg/dL 5-40 [facility] Serum or plasma creatinine m easurement (mass/volume)Ordered By: HEALTH ASSESSMENT on 09-15-2023 Creatinine [Mass/Vol] 0.83 mg/dL 0.55-1.02 [facility] Comment on above: The validity of the calculated GFR & GFRAA in patients over 70 years has not been determined. Clinical correlation is essential. Serum or plasma low density lipoprotein (LDL) cholesterol measurement (mass/volume)Ordered By: HEALTH ASSESSMENT on 09-15-2023 Cholesterol in LDL [Mass/Vol] 108 mg/dL 0-130 [facility] Serum or plasma urea nitroge n measurement (mass/volume)Ordered By: HEALTH ASSESSMENT on 09-15-2023 Urea nitrogen [Mass/Vol] 15 mg/dL 7-18 [facility] Serum or plasma uric acid me asurement (mass/volume)Ordered By: HEALTH ASSESSMENT on 09-15-2023 Urate [Mass/Vol] 4.1 mg/dL 2.6-6.0 [facility] Comment on above: The drugs N-Acetylcy steine and Metamizole may falsely depress this assay. Thin prep Papanicolaou smear with manual screeningOrdered By: HEALTH ASSESSMENT on 09-15-2023 Thin prep Papanicolaou smear with manual screening 23 U/L 15-37 [facility] Thin prep Papanicolaou smear with manual screening 5 5-15 [facility] Basophil percentageOrdered B y: Dr. Norton on 01-07-2023 Bilirubin [Mass/Vol] 0.60 mg/dL 0.20-1.00 [facility] Comment on above: For patients on eltr ombopag therapy, use of Dimension [place] TBIL is not recommended. Chloride [Moles/Vol] 106 mmol/L 98-107 [facility] Cholesterol [Mass/Vol] 232 mg/dL <200 [facility] Comment on above: <200 mg/dL Desirable 200-240 mg/dL Borderline >240 mg/dL High Risk Glucose [Mass/Vol] 95 mg/dL 74-106 [facility] Potassium [Moles/Vol] 4.2 mmol/L 3.5-5.1 [facility] Protein [Mass/Vol] 7.6 g/dL 6.4-8.2 [facility] Sodium [Moles/Vol] 140 mmol/L 136-145 [facility] Triglyceride [Mass/Vol] 55 mg/dL <199 [facility] Comment on above: The drugs N-Acetylcy steine and Metamizole may falsely depress this assay.Serum Triglycerides Reference Interval Normal <150 mg/dL Borderline high 150 - 199 mg/dL High 200 - 499 mg/dL Very High > or = 500 mg/dL Laboratory - Chemistry and C hemistry - challengeOrdered By: Dr. Norton on 01-07-2023 ALP [Catalytic activity/Vol] 50 U/L 45-117 [facility] ALT [Catalytic activity/Vol] 23 U/L 13-56 [facility] CO2 [Moles/Vol] 27.0 mmol/L 21.0-32.0 [facility] Globulin (S) [Mass/Vol] 3.6 g/dL 2.2-4.2 [facility] Urea nitrogen/Creatinine [Mass ratio] 15.2 mg/mg 10-20 [facility] No Panel InformationOrdered By: Dr. oNrton on 01-07-2023 Estimated GFR (MDRD) Amer 85 mL/min >60 [facility] Comment on above: GFR Calc Estimated GFR (MDRD) Non-Af Amer 70 mL/min >60 [facility] Comment on above: Non- GFR Calc Vitamin D 25-Hydroxy 63.4 ng/mL [facility] Comment on above: Vitamin D 25(OH) Sta tus Range Deficiency <20 ng/mL (50nmol/L) Insufficiency 20 - 30 ng/mL (50 - 75 nmol/L) Sufficiency 30 - 100 ng/mL (75 - 250 nmol/L) Toxicity >100 ng/mL (>250 nmol/L) Serum or plasma albumin peggy urement (mass/volume)Ordered By: Dr. Norton on 01-07-2023 Albumin [Mass/Vol] 4.0 g/dL 3.2-5.0 [facility] Serum or plasma albumin/glob ulin mass ratioOrdered By: Dr. Norton on 01-07-2023 Albumin/Globulin [Mass ratio] 1.1 {ratio} 0.9-2.4 [facility] Serum or plasma calcium peggy urement (mass/volume)Ordered By: Dr. Norton on 01-07-2023 Calcium [Mass/Vol] 9.9 mg/dL 8.5-10.1 [facility] Serum or plasma cholesterol in HDL measurement (mass/volume)Ordered By: Dr. Norton on 01-07-2023 Cholesterol in HDL [Mass/Vol] 103 mg/dL >40 [facility] Comment on above: The drugs N-Acetylcy steine and Metamizole may falsely depress this assay. Reference Range HDL <40 mg/dL Low HDL Cholesterol HDL >or= 60 mg/dL High HDL Cholesterol Serum or plasma cholesterol in VLDL measurement (mass/volume)Ordered By: Dr. Norton on 01-07-2023 Cholesterol in VLDL [Mass/Vol] 11 mg/dL 5-40 [facility] Serum or plasma creatinine m easurement (mass/volume)Ordered By: Dr. Norton on 01-07-2023 Creatinine [Mass/Vol] 0.86 mg/dL 0.55-1.02 [facility] Comment on above: The validity of the calculated GFR & GFRAA in patients over 70 years has not been determined. Clinical correlation is essential. Serum or plasma low density lipoprotein (LDL) cholesterol measurement (mass/volume)Ordered By: Dr. Norton on 01-07-2023 Cholesterol in LDL [Mass/Vol] 118 mg/dL 0-130 [facility] Serum or plasma urea nitroge n measurement (mass/volume)Ordered By: Dr. Norton on 01-07-2023 Urea nitrogen [Mass/Vol] 13 mg/dL 7-18 [facility] Thin prep Papanicolaou smear with manual screeningOrdered By: Dr. Norton on 01-07-2023 Thin prep Papanicolaou smear with manual screening 26 U/L 15-37 [facility] Thin prep Papanicolaou smear with manual screening 7 5-15 [facility] CBC W/AUTO DIFF WBC (87122)O rdered By: Distributor Sales Consultant on 06-25-2022 Basophils (Bld) [#/Vol] 0.0 10*3/uL Normal 0.0-0.2 [facility]; [facility] Work Phone: Comment on above: PATIENT WAS FASTINGP ERFORMED BY: CAMMIE [facility] [id number] [facility] [id number] Information: NURSE DRAW; wellness labs for 812 Basophils/100 WBC (Bld) 1 % Normal [facility]; [facility] Work Phone: Comment on above: PATIENT WAS FASTINGP ERFORMED BY: CAMMIE [facility] [id number] [facility] [id number] Information: NURSE DRAW; wellness labs for 07/09 Eosinophils (Bld) [#/Vol] 0.1 10*3/uL Normal 0.0-0.4 [facility]; [facility] Work Phone: Comment on above: PATIENT WAS FASTINGP ERFORMED BY: CAMMIE [facility] [id number] [facility] [id number] Information: NURSE DRAW; wellness labs for 07/09 Eosinophils/100 WBC (Bld) 2 % Normal [facility]; [facility] Work Phone: Comment on above: PATIENT WAS FASTINGP ERFORMED BY: CAMMIE [facility] [id number] [facility] [id number] Information: NURSE DRAW; wellness labs for 07/09 Erythrocyte distribution width (RBC) [Ratio] 12.6 % Normal 11.7-15.4 [facility]; [facility] Work Phone: Comment on above: PATIENT WAS FASTINGP ERFORMED BY: CAMMIE [facility] Hunguz0896 [facility] [id number] Information: NURSE DRAW; wellness labs for 07/09 Hematocrit (Bld) [Volume fraction] 38.4 % Normal 34.0-46.6 [facility]; [facility] Work Phone: Comment on above: PATIENT WAS FASTINGP ERFORMED BY: CAMMIE [facility] Ppxscw9369 [facility] [id number] Information: NURSE DRAW; wellness labs for 8 Hemoglobin (Bld) [Mass/Vol] 13.1 g/dL Normal 11.1-15.9 [facility]; [facility] Work Phone: Comment on above: PATIENT WAS FASTINGP ERFORMED BY: CAMMIE SriramJohn [place] [id number] [facility] [id number] Information: NURSE DRAW; wellness labs for 07/09 Immature granulocytes (Bld) [#/Vol] 0.0 10*3/uL Normal 0.0-0.1 [facility]; [facility] Work Phone: Comment on above: PATIENT WAS FASTINGP ERFORMED BY: CAMMIE [facility] [id number] [id number] Information: NURSE DRAW; wellness labs for 07/09 Immature granulocytes/100 WBC (Bld) 0 % Normal [facility]; [facility] Work Phone: Comment on above: PATIENT WAS FASTINGP ERFORMED BY: CAMMIE [address] [id number] Information: NURSE DRAW; wellness labs for 07/09 Lymphocytes (Bld) [#/Vol] 1.1 10*3/uL Normal 0.7-3.1 [facility]; [facility] Work Phone: Comment on above: PATIENT WAS FASTINGP ERFORMED BY: CAMMIE SriramJohn [place] [id number] [facility] [id number] Information: NURSE DRAW; wellness labs for 07/09 Lymphocytes/100 WBC (Bld) 29 % Normal [facility]; [facility] Work Phone: Comment on above: PATIENT WAS FASTINGP ERFORMED BY: [place] [id number] [facility] [id number] Information: NURSE DRAW; wellness labs for 07/09 MCH (RBC) [Entitic mass] 31.0 pg Normal 26.6-33.0 [facility]; [facility] Work Phone: Comment on above: PATIENT WAS FASTINGP ERFORMED BY: [address] [id number] Information: NURSE DRAW; wellness labs for 07/09 MCHC (RBC) [Mass/Vol] 34.1 g/dL Normal 31.5-35.7 [facility]; [facility] Work Phone: Comment on above: PATIENT WAS FASTINGP ERFORMED BY: CAMMIE Danielle Hvbwoa1498 [facility] [id number] Information: NURSE DRAW; wellness labs for 07/09 MCV (RBC) [Entitic vol] 91 fL Normal 79-97 [facility]; [facility] Work Phone: Comment on above: PATIENT WAS FASTINGP ERFORMED BY: CAMMIE LabJohn Ville [id number] [facility] [id number] Information: NURSE DRAW; wellness labs for 07/09 Monocytes (Bld) [#/Vol] 0.2 10*3/uL Normal 0.1-0.9 [facility]; [facility] Work Phone: Comment on above: PATIENT WAS FASTINGP ERFORMED BY: CAMMIE LabJohn V[place] [id number] [facility] [id number] Information: NURSE DRAW; wellness labs for 07/09 Monocytes/100 WBC (Bld) 6 % Normal [facility]; [facility] Work Phone: Comment on above: PATIENT WAS FASTINGP ERFORMED BY: LabJohn V[place] [id number] [facility] [id number] Information: NURSE DRAW; wellness labs for 07/09 Neutrophils (Bld) [#/Vol] 2.3 10*3/uL Normal 1.4-7.0 [facility]; [facility] Work Phone: Comment on above: PATIENT WAS FASTINGP ERFORMED BY: [facility] [id number] [facility] [id number] Information: NURSE DRAW; wellness labs for 8 Neutrophils/100 WBC (Bld) 62 % Normal [facility]; [facility] Work Phone: Comment on above: PATIENT WAS FASTINGP ERFORMED BY: [facility] Vatsxy6067 [facility] [id number] Information: NURSE DRAW; wellness labs for 07/09 Platelets (Bld) [#/Vol] 223 10*3/uL Normal 150-450 [facility]; [facility] Work Phone: Comment on above: PATIENT WAS FASTINGP ERFORMED BY: CAMMIE [facility] Ctqmxn1762 [facility] [id number] Information: NURSE DRAW; wellness labs for 07/09 RBC (Bld) [#/Vol] 4.23 10*6/uL Normal 3.77-5.28 [facility]; [facility] Work Phone: Comment on above: PATIENT WAS FASTINGP ERFORMED BY: CAMMIE [facility] Gymojn5140 [facility] [id number] Information: NURSE DRAW; wellness labs for 07/09 WBC (Bld) [#/Vol] 3.7 10*3/uL Normal 3.4-10.8 [facility]; [facility] Work Phone: Comment on above: PATIENT WAS FASTINGP ERFORMED BY: CAMMIE [facility] [id number] [facility] [id number] Information: NURSE DRAW; wellness labs for 07/09 METABOLIC PANEL, COMPREHENSI VE ([id number])Ordered By: Distributor Sales Consultant on 06-25-2022 Albumin [Mass/Vol] 4.4 g/dL Normal 3.8-4.8 [facility]; [facility] Work Phone: Comment on above: PATIENT WAS FASTINGP ERFORMED BY: CAMMIE [facility] [id number] [facility] [id number] Albumin/Globulin [Mass ratio] 1.8 {ratio} Normal 1.2-2.2 [facility]; [facility] Work Phone: Comment on above: PATIENT WAS FASTINGP ERFORMED BY: [facility] Ihljqo3038 [facility] [id number] ALP [Catalytic activity/Vol] 52 U/L Normal 44-121 [facility]; [facility] Work Phone: Comment on above: PATIENT WAS FASTINGP ERFORMED BY: [facility] Ywyazb5795 [address] RoadDublin [place] [id number] ALT [Catalytic activity/Vol] 14 U/L Normal 0-32 [facility]; [facility] Work Phone: Comment on above: PATIENT WAS FASTINGP ERFORMED BY: CB [facility] Pqbuxu3509 [address] RoadDublin [place] [id number] AST [Catalytic activity/Vol] 23 U/L Normal 0-40 [facility]; [facility] Work Phone: Comment on above: PATIENT WAS FASTINGP ERFORMED BY: [facility] Ccydjs2814 [address] RoadDublin [place] [id number] Bilirubin [Mass/Vol] 0.4 mg/dL Normal 0.0-1.2 Comp rehensive [facility]; [facility] Work Phone: Comment on above: PATIENT WAS FASTINGP ERFORMED BY: [facility] Gkdukv3147 [address] RoadDublin [place] [id number] Calcium [Mass/Vol] 10.2 mg/dL Normal 8.7-10.3 [facility]; [facility] Work Phone: Comment on above: PATIENT WAS FASTINGP ERFORMED BY: [facility] [id number] [address] RoadDublin [place] [id number] Chloride [Moles/Vol] 105 mmol/L Normal 96-106 [facility]; [facility] Work Phone: Comment on above: PATIENT WAS FASTINGP ERFORMED BY: [facility] Gvaugs0635 [address] RoadDublin [place] [id number] CO2 [Moles/Vol] 24 mmol/L Normal 20-29 [facility]; [facility] Work Phone: Comment on above: PATIENT WAS FASTINGP ERFORMED BY: [facility] Sxzzhj6229 [address] RoadDublin [place] [id number] Creatinine [Mass/Vol] 0.75 mg/dL Normal 0.57-1.00 [facility] prehensive Internal Medicine; [facility] Work Phone: Comment on above: PATIENT WAS FASTINGP ERFORMED BY: CAMMIE [facility] Qimpdf8890 [address] RoadDublin [place] [id number] GFR/1.73 sq M.predicted among non-blacks MDRD (S/P/Bld) [Vol rate/Area] 87 mL/min/{1.73_m2} Normal Comprehensiv e [facility]; [facility] Work Phone: Comment on above: PATIENT WAS FASTINGP ERFORMED BY: [facility] Tfwxwt3663 [address] RoadDublin [place] [id number] Globulin (S) [Mass/Vol] 2.5 g/dL Normal 1.5-4.5 [facility]; [facility] Work Phone: Comment on above: PATIENT WAS FASTINGP ERFORMED BY: CAMMIE [facility] Gsvbfg5794 [address] RoadDublin [place] [id number] Glucose [Mass/Vol] 98 mg/dL Normal 65-99 Compre hensive [facility]; [facility] Work Phone: Comment on above: PATIENT WAS FASTINGP ERFORMED BY: [facility] Bqfaqy9859 [address] RoadDublin [place] [id number] Potassium [Moles/Vol] 4.2 mmol/L Normal 3.5-5.2 [facility] prehensive Internal Medicine; [facility] Work Phone: Comment on above: PATIENT WAS FASTINGP ERFORMED BY: [facility] Haqogf7669 [address] RoadDublin [place] [id number] Protein [Mass/Vol] 6.9 g/dL Normal 6.0-8.5 [facility] hens[facility]; [facility] Work Phone: Comment on above: PATIENT WAS FASTINGP ERFORMED BY: [facility] Cyaoqa3973 [address] RoadDublin [place] [id number] Sodium [Moles/Vol] 143 mmol/L Normal 134-144 [facility] hens[facility]; [facility] Work Phone: Comment on above: PATIENT WAS FASTINGP ERFORMED BY: [facility] Uznwty3851 [address] RoadDublin [place] [id number] Urea nitrogen [Mass/Vol] 14 mg/dL Normal 8-27 [facility]; [facility] Work Phone: Comment on above: PATIENT WAS FASTINGP ERFORMED BY: CAMMIE Mcneil6370 [address]Dublin [place] [id number] Urea nitrogen/Creatinine [Mass ratio] 19 mg/mg Normal 12-28 [facility]; [facility] Work Phone: Comment on above: PATIENT WAS FASTINGP ERFORMED BY: CAMMIE [facility] Edftxw4333 [address] Roadblin [place] [id number] URINALYSIS, W/ MICRO ([id number]) Ordered By: Distributor Sales Consultant on 06-25-2022 Appearance (U) Clear Normal Comprehens an[facility]; [facility] Work Phone: Comment on above: PATIENT WAS FASTINGP ERFORMED BY: CAMMIE Labisabell Wjlcbl6791 [address] RoadDublin [place] [id number] Bilirubin Ql (U) Negative Normal Comprehe nsive [facility]; [facility] Work Phone: Comment on above: PATIENT WAS FASTINGP ERFORMED BY: CAMMIE [facility] Zaklcr8494 [address]Dublin [place] [id number] Color (U) Yellow Normal [facility]; [facility] Work Phone: Comment on above: PATIENT WAS FASTINGP ERFORMED BY: CAMMIE Labisabell Noarwa4623 [address] RoadDublin [place] [id number] Glucose Ql (U) Negative Normal Comprehens [facility]; [facility] Work Phone: Comment on above: PATIENT WAS FASTINGP ERFORMED BY: CAMMIE [facility] Qsnmya0813 [address] RoadDublin [place] [id number] Hemoglobin Ql (U) Negative Normal Compreh ensive [facility]; [facility] Work Phone: Comment on above: PATIENT WAS FASTINGP ERFORMED BY: CAMMIE [facility] Wizvjt8410 [address] RoadDublin [place] [id number] Ketones Ql (U) Negative Normal Comprehens [facility]; [facility] Work Phone: Comment on above: PATIENT WAS FASTINGP ERFORMED BY: CAMMIE Johnsonlin6370 [address]Dublin [place] [id number] Leukocyte esterase Test strip Ql (U) Trace Abnormal [facility]; [facility] Work Phone: Comment on above: PATIENT WAS FASTINGP ERFORMED BY: CAMMIE Johnsonlin6370 [address] RoadDublin [place] [id number] Microscopic observation LM Nom (Urine sed) See below: Normal [facility]; [facility] Work Phone: Comment on above: Microscopic was asif cated and was performed. PATIENT WAS FASTINGP ERFORMED BY: CAMMIE Labisabell Mcneil6370 [address] RoadDublin [place] [id number] Nitrite Ql (U) Negative Normal Comprehens ania [facility]; [facility] Work Phone: Comment on above: PATIENT WAS FASTINGP ERFORMED BY: CAMMIE Mcneil[address] [facility]bl[facility] [place] [id number] pH (U) 6.5 [pH] Normal 5.0-7.5 [facility]; [facility] Work Phone: Comment on above: PATIENT WAS FASTINGP ERFORMED BY: CAMMIE Johnsonlin6370 [address] [place] [id number] Protein Ql (U) Negative Normal Comprehens ania [facility]; [facility] Work Phone: Comment on above: PATIENT WAS FASTINGP ERFORMED BY: CAMMIE Johnsonlin[address] [facility]in [place] [id number] Specific gravity (U) [Rel density] 1.006 1 Normal 1.005-1.030 [facility]; [facility] Work Phone: Comment on above: PATIENT WAS FASTINGP ERFORMED BY: CAMMIE Labcolaurita JohnsonEqglpg8525 Gal[address] RoadDublin [place] [id number] Urobilinogen (U) [Mass/Vol] 0.2 mg/dL Normal 0.2-1.0 [facility]; [facility] Work Phone: Comment on above: PATIENT WAS FASTINGP ERFORMED BY: CAMMIE Bhatiacolaurita McneilFufvhn5359 [facility] [id number] CBC WITH MANUAL DIFF ([id number]) Ordered By: Distributor Sales Consultant on 06-23-2021 Basophils (Bld) [#/Vol] 0.0 10*3/uL Normal 0.0-0.2 [facility]; [facility] Work Phone: Comment on above: PATIENT NOT FASTINGP ERFORMED BY: CAMMIE BhatiaCo Uvllsq9266 [facility] [id number] Information: NURSE DRAW Basophils/100 WBC (Bld) 1 % Normal C omprehensive [facility]; [facility] Work Phone: Comment on above: PATIENT NOT FASTINGP ERFORMED BY: CAMMIE Johnsonlin6370 [facility] [id number] Information: NURSE DRAW Eosinophils (Bld) [#/Vol] 0.1 10*3/uL Normal 0.0-0.4 [facility]; [facility] Work Phone: Comment on above: PATIENT NOT FASTINGP ERFORMED BY: CAMMIE Gibbs Sphrha5353 [facility] [id number] Information: NURSE DRAW Eosinophils/100 WBC (Bld) 3 % Normal [facility]; [facility] Work Phone: Comment on above: PATIENT NOT FASTINGP ERFORMED BY: SriramCoAdam Ville [id number] [facility] [id number] Information: NURSE DRAW Erythrocyte distribution width (RBC) [Ratio] 12.0 % Normal 11.7-15.4 [facility]; [facility] Work Phone: Comment on above: PATIENT NOT FASTINGP ERFORMED BY: CAMMIE [facility] Lbwnvm3285 [facility] [id number] Information: NURSE DRAW Hematocrit (Bld) [Volume fraction] 42.3 % Normal 34.0-46.6 [facility]; [facility] Work Phone: Comment on above: PATIENT NOT FASTINGP ERFORMED BY: CAMMIE LabCoAdam Ville [id number] [facility] [id number] Information: NURSE DRAW Hemoglobin (Bld) [Mass/Vol] 14.1 g/dL Normal 11.1-15.9 [facility]; [facility] Work Phone: Comment on above: PATIENT NOT FASTINGP ERFORMED BY: CAMMIE Nichols Uobuly1015 [facility] [id number] Information: NURSE DRAW Immature granulocytes (Bld) [#/Vol] 0.0 10*3/uL Normal 0.0-0.1 [facility]; [facility] Work Phone: Comment on above: PATIENT NOT FASTINGP ERFORMED BY: CAMMIE Bhatia[address] [id number] Information: NURSE DRAW Immature granulocytes/100 WBC (Bld) 0 % Normal [facility]; [facility] Work Phone: Comment on above: PATIENT NOT FASTINGP ERFORMED BY: Sriram[address] [id number] Information: NURSE DRAW Lymphocytes (Bld) [#/Vol] 1.1 10*3/uL Normal 0.7-3.1 [facility]; [facility] Work Phone: Comment on above: PATIENT NOT FASTINGP ERFORMED BY: CAMMIE BhatiaTheresa V[place] [id number] [facility] [id number] Information: NURSE DRAW Lymphocytes/100 WBC (Bld) 28 % Normal [facility]; [facility] Work Phone: Comment on above: PATIENT NOT FASTINGP ERFORMED BY: [address] [id number] Information: NURSE DRAW MCH (RBC) [Entitic mass] 30.8 pg Normal 26.6-33.0 [facility]; [facility] Work Phone: Comment on above: PATIENT NOT FASTINGP ERFORMED BY: [address] [id number] Information: NURSE DRAW MCHC (RBC) [Mass/Vol] 33.3 g/dL Normal 31.5-35.7 [facility] prehensive Internal Medicine; [facility] Work Phone: Comment on above: PATIENT NOT FASTINGP ERFORMED BY: CAMMIE [facility]St[facility] [id number] Information: NURSE DRAW MCV (RBC) [Entitic vol] 92 fL Normal 79-97 C omprehensive [facility]; [facility] Work Phone: Comment on above: PATIENT NOT FASTINGP ERFORMED BY: CAMMIE Johnsonlin6370 [facility] [id number] Information: NURSE DRAW Monocytes (Bld) [#/Vol] 0.2 10*3/uL Normal 0.1-0.9 [facility]; [facility] Work Phone: Comment on above: PATIENT NOT FASTINGP ERFORMED BY: CAMMIE [id number] [facility] [id number] Information: NURSE DRAW Monocytes/100 WBC (Bld) 6 % Normal C omprehensive Internal Medicine; [facility] Work Phone: Comment on above: PATIENT NOT FASTINGP ERFORMED BY: CAMMIE [id number] [facility] [id number] Information: NURSE DRAW Neutrophils (Bld) [#/Vol] 2.4 10*3/uL Normal 1.4-7.0 [facility]; [facility] Work Phone: Comment on above: PATIENT NOT FASTINGP ERFORMED BY: CAMMIE [id number] [facility] [id number] Information: NURSE DRAW Neutrophils/100 WBC (Bld) 62 % Normal [facility]; [facility] Work Phone: Comment on above: PATIENT NOT FASTINGP ERFORMED BY: CAMMIE [id number] [facility] [id number] Information: NURSE DRAW Platelets (Bld) [#/Vol] 206 10*3/uL Normal 150-450 [facility]; [facility] Work Phone: Comment on above: PATIENT NOT FASTINGP ERFORMED BY: CAMMIE Mcneil6[address]Dublin [place] [id number] Information: NURSE DRAW RBC (Bld) [#/Vol] 4.58 10*6/uL Normal 3.77-5.28 [facility]pr [facility]; [facility] Work Phone: Comment on above: PATIENT NOT FASTINGP ERFORMED BY: CB [facility] [id number] [address] RoadDublin [place] [id number] Information: NURSE DRAW WBC (Bld) [#/Vol] 3.8 10*3/uL Normal 3.4-10.8 [facility]pr [facility]; [facility] Work Phone: Comment on above: PATIENT NOT FASTINGP ERFORMED BY: CAMMIE Simone Mcneil[address]Dublin [place] [id number] Information: NURSE DRAW URINALYSIS (90388)Ordered By : Distributor Sales Consultant on 06-23-2021 Appearance (U) Clear Normal Comprehens [facility]; [facility] Work Phone: Comment on above: PATIENT NOT FASTINGP ERFORMED BY: CAMMIE Mcneil[address] [place] [id number] Bilirubin Ql (U) Negative Normal Comprehe nsive Internal Medicine; [facility] Work Phone: Comment on above: PATIENT NOT FASTINGP ERFORMED BY: CAMMIE LabVelasquezrp [id number] [address] RoadDublin [place] [id number] Color (U) Yellow Normal [facility]; [facility] Work Phone: Comment on above: PATIENT NOT FASTINGP ERFORMED BY: CAMMIE [facility] [id number] [address] RoadDublin [place] [id number] Glucose Ql (U) Negative Normal Comprehens [facility]; [facility] Work Phone: Comment on above: PATIENT NOT FASTINGP ERFORMED BY: CAMMIE [facility] [id number] [address] RoadDublin [place] [id number] Hemoglobin Ql (U) Negative Normal Compreh ensive Internal Medicine; [facility] Work Phone: Comment on above: PATIENT NOT FASTINGP ERFORMED BY: CAMMIE Mcneil[address] [facility] [id number] Ketones Ql (U) Negative Normal Comprehens [facility]; [facility] Work Phone: Comment on above: PATIENT NOT FASTINGP ERFORMED BY: CAMMIE Mcneil[address] [facility] [id number] Leukocyte esterase Test strip Ql (U) Negative Normal [facility]; [facility] Work Phone: Comment on above: PATIENT NOT FASTINGP ERFORMED BY: CAMMIE Mcneil6370 [facility] [id number] Microscopic observation LM Nom (Urine sed) MICNIP Normal [facility]; [facility] Work Phone: Comment on above: Microscopic not asif cated and not performed. PATIENT NOT FASTINGP ERFORMED BY: CAMMIE Mcneil6370 [facility] [id number] Nitrite Ql (U) Negative Normal Comprehens [facility]; [facility] Work Phone: Comment on above: PATIENT NOT FASTINGP ERFORMED BY: CAMMIE Mcneil6370 [facility] [id number] pH (U) 6.5 [pH] Normal 5.0-7.5 [facility]; [facility] Work Phone: Comment on above: PATIENT NOT FASTINGP ERFORMED BY: CAMMIE Johnsonlin6370 [facility] [id number] Protein Ql (U) Negative Normal Comprehens [facility]; [facility] Work Phone: Comment on above: PATIENT NOT FASTINGP ERFORMED BY: CAMMIE Mcneil6370 [facility] [id number] Specific gravity (U) [Rel density] 1.005 1 Normal 1.005-1.030 [facility]; [facility] Work Phone: Comment on above: PATIENT NOT FASTINGP ERFORMED BY: CAMMIE Johnsonlin6370 [facility] [id number] Urobilinogen (U) [Mass/Vol] 0.2 mg/dL Normal 0.2-1.0 [facility]; [facility] Work Phone: Comment on above: PATIENT NOT FASTINGP ERFORMED BY: [employer] Nhlcwh[address] Bluetrain.ioLake [facility] [id number] Vital Signs Date Time Vital Sign Value Performing Clinician Facility 04-16-2025 06:36-0400 Body temperature 98.3 [degF] Dr. Rajat Norton DO Work Phone: [facility] 04-16-2025 06:36-0400 Diastolic blood pressure 62 mm[Hg] Dr. Rajat Norton DO Work Phone: [facility] 04-16-2025 06:36-0400 Heart rate 67 /min Dr. Rajat Norton DO Work Phone: [facility] 04-16-2025 06:36-0400 SaO2% (BldA) [Mass fraction] 98 % Dr. Rajat Norton DO Work Phone: [facility] 04-16-2025 06:36-0400 Systolic blood pressure 108 mm[Hg] Dr. Rajat Norton DO Work Phone: [facility] 02-12-2025 15:36-0400 Diastolic blood pressure 91 mm[Hg] Danni Gurrola PA-C Work Phone: [facility] 02-12-2025 15:36-0400 Heart rate 62 /min Danni Gurrola PA-C Work Phone: [facility] 02-12-2025 15:36-0400 SaO2% (BldA) [Mass fraction] 97 % Danni Gurrola PA-C Work Phone: [facility] 02-12-2025 15:36-0400 Systolic blood pressure 146 mm[Hg] Danni Gurrola PA-C Work Phone: [facility] 01-29-2025 11:44-0500 Body height 165.[address] Rajat Norton DO Work Phone: [facility] 01-29-2025 11:44-0500 Body temperature 99.1 [degF] Dr. Rajat Norton DO Work Phone: [facility] 01-29-2025 11:44-0500 Diastolic blood pressure 92 mm[Hg] Dr. Rajat Norton DO Work Phone: [facility] 01-29-2025 11:44-0500 Heart rate 72 /min Dr. Rajat Norton DO Work Phone: [facility] 01-29-2025 11:44-0500 Respiratory rate 12 /min Dr. Rajat Norton DO Work Phone: [facility] 01-29-2025 11:44-0500 SaO2% (BldA) [Mass fraction] 98 % Dr. Rajat Norton DO Work Phone: [facility] 01-29-2025 11:44-0500 Systolic blood pressure 134 mm[Hg] Dr. Rajat Norton DO Work Phone: [facility] 11-02-2024 15:23-0500 Body weight 64.95 kg Ozzie Robertson Jr., MD Work Phone: [facility] 11-02-2024 15:23-0500 Diastolic blood pressure 81 mm[Hg] Ozzie Robertson Jr., MD Work Phone: [facility] 11-02-2024 15:23-0500 Heart rate 95 /min Ozzie Robertson Jr., MD Work Phone: [facility] 11-02-2024 15:23-0500 SaO2% (BldA) [Mass fraction] 96 % Ozzie Robertson Jr., MD Work Phone: [facility] 11-02-2024 15:23-0500 Systolic blood pressure 125 mm[Hg] Ozzie Robertson Jr., MD Work Phone: [facility] 05-04-2024 08:34-0400 Body weight 62.32 kg Ozzie Robertson Jr., MD Work Phone: [facility] 05-04-2024 08:34-0400 Diastolic blood pressure 76 mm[Hg] Ozzie Robertson Jr., MD Work Phone: [facility] 05-04-2024 08:34-0400 Heart rate 66 /min Ozzie Robertson Jr., MD Work Phone: [facility] 05-04-2024 08:34-0400 Respiratory rate 16 /min Ozzie Robertson Jr., MD Work Phone: [facility] 05-04-2024 08:34-0400 SaO2% (BldA) [Mass fraction] 95 % Ozzie Robertson Jr., MD Work Phone: [facility] 05-04-2024 08:34-0400 Systolic blood pressure 122 mm[Hg] Ozzie Robertson Jr., MD Work Phone: [facility] 12-30-2023 09:01-0500 Body weight 62.69 kg Ozzie Robertson Jr., MD Work Phone: [facility] 12-30-2023 09:01-0500 Diastolic blood pressure 72 mm[Hg] Ozzie Robertson Jr., MD Work Phone: [facility] 12-30-2023 09:01-0500 Heart rate 78 /min Ozzie Robertson Jr., MD Work Phone: [facility] 12-30-2023 09:01-0500 Respiratory rate 16 /min Ozzie Robertson Jr., MD Work Phone: [facility] 12-30-2023 09:01-0500 SaO2% (BldA) [Mass fraction] 97 % Ozzie Robertson Jr., MD Work Phone: [facility] 12-30-2023 09:01-0500 Systolic blood pressure 124 mm[Hg] Ozzie Robertson Jr., MD Work Phone: [facility] 12-27-2023 09:58-0500 Body height 165.[address] Rajat Fast Work Phone: [facility] 12-27-2023 09:58-0500 Body mass index (BMI) [Ratio] 22.6 kg/m2 Dr. Adams Fast Work Phone: [facility] 12-27-2023 09:58-0500 Body temperature 98.4 [degF] Dr. Adams Fast Work Phone: [facility] 12-27-2023 09:58-0500 Body weight 61.[address] Adams Fast Work Phone: [facility] 12-27-2023 09:58-0500 Diastolic blood pressure 86 mm[Hg] Dr. Adams Fast Work Phone: [facility] 12-27-2023 09:58-0500 Heart rate 69 /min Dr. Adams Fast Work Phone: [facility] 12-27-2023 09:58-0500 Respiratory rate 16 /min Dr. Adams Fast Work Phone: [facility] 12-27-2023 09:58-0500 SaO2% (BldA) [Mass fraction] 97 % Dr. Adams Fast Work Phone: [facility] 12-27-2023 09:58-0500 Systolic blood pressure 122 mm[Hg] Dr. Adams Fast Work Phone: [facility] 12-20-2023 15:02-0500 Body temperature 98.5 [degF] Dr. Adams Fast Work Phone: [facility] 12-20-2023 15:02-0500 Diastolic blood pressure 78 mm[Hg] Dr. Adams Fast Work Phone: [facility] 12-20-2023 15:02-0500 Heart rate 79 /min Dr. Adams Fast Work Phone: [facility] 12-20-2023 15:02-0500 Respiratory rate 12 /min Dr. Adams Fast Work Phone: [facility] 12-20-2023 15:02-0500 SaO2% (BldA) [Mass fraction] 97 % Dr. Rajat Norton Work Phone: [facility] 12-20-2023 15:02-0500 Systolic blood pressure 116 mm[Hg] Dr. Rajat Norton Work Phone: [facility] 2023 10:29-0400 Body weight 63.05 kg Ozzie Robertson Jr., MD Work Phone: [facility] 2023 10:29-0400 Diastolic blood pressure 89 mm[Hg] Ozzie Robertson Jr., MD Work Phone: [facility] 2023 10:29-0400 Heart rate 64 /min Ozzie Robertson Jr., MD Work Phone: [facility] 2023 10:29-0400 Respiratory rate 18 /min Ozzie Robertson Jr., MD Work Phone: [facility] 2023 10:29-0400 SaO2% (BldA) [Mass fraction] 96 % Ozzie Robertson Jr., MD Work Phone: [facility] 2023 10:29-0400 Systolic blood pressure 131 mm[Hg] Ozzie Robertson Jr., MD Work Phone: [facility] 07-12-2023 13:36-0400 Body height 162.56 cm Tonie Langford [facility]; [facility] Work Phone: 07-12-2023 13:36-0400 Body mass index (BMI) [Ratio] 24.44 kg/m2 [facility]; [facility] Work Phone: 07-12-2023 13:36-0400 Body surface area Derived from formula 1.69 m2 Tonie Langford [facility]; [facility] Work Phone: 07-12-2023 13:36-0400 Body temperature 98.7 [degF] [facility]; [facility] Work Phone: Comment on above: Method: Thermal Scan 07-12-2023 13:36-0400 Body weight 64.58 kg Tonie Langford [facility]; [facility] Work Phone: 07-12-2023 13:36-0400 Diastolic blood pressure 78 mm[Hg] Tonie Langford [facility]; [facility] Work Phone: Comment on above: Patient Position: Sitting; Cuff Location : Left Arm; Cuff Size: Standard 07-12-2023 13:36-0400 Heart rate 60 /min Tonie Langford [facility]; [facility] Work Phone: Comment on above: Pattern: Regular 07-12-2023 13:36-0400 Respiratory rate 16 /min Tonie Langford [facility]; [facility] Work Phone: Comment on above: Pattern: Unlabored 07-12-2023 13:36-0400 Systolic blood pressure 128 mm[Hg] Tonie Langford [facility]; [facility] Work Phone: Comment on above: Patient Position: Sitting; Cuff Location : Left Arm; Cuff Size: Standard 04-20-2023 09:21-0400 Body height 167.[address] Rajat Norton Work Phone: [facility] 03-11-2023 08:50-0400 Body temperature 98 [degF] Dr. Rajat Norton Work Phone: [facility] 03-11-2023 08:50-0400 Diastolic blood pressure 74 mm[Hg] Dr. Adams Fast Work Phone: [facility] 03-11-2023 08:50-0400 Heart rate 57 /min Dr. Adams Fast Work Phone: [facility] 03-11-2023 08:50-0400 Respiratory rate 15 /min Dr. Adams Fast Work Phone: [facility] 03-11-2023 08:50-0400 SaO2% (BldA) [Mass fraction] 97 % Dr. Rajat Norton Work Phone: [facility] 03-11-2023 08:50-0400 Systolic blood pressure 102 mm[Hg] Dr. Rajat Norton Work Phone: [facility] 01-11-2023 13:06-0500 Body height 162.56 cm Tonie Langford [facility]; [facility] Work Phone: 01-11-2023 13:06-0500 Body mass index (BMI) [Ratio] 24.44 kg/m2 Tonie Langford [facility]; [facility] Work Phone: 01-11-2023 13:06-0500 Body surface area Derived from formula 1.69 m2 Tonie Langford [facility] Internal Medicine; [facility] Work Phone: 01-11-2023 13:06-0500 Body temperature 97.4 [degF] Tonie Langford [facility]; [facility] Work Phone: Comment on above: Method: Thermal Scan 01-11-2023 13:06-0500 Body weight 64.58 kg Tonie Langford [facility]; [facility] Work Phone: 01-11-2023 13:06-0500 Diastolic blood pressure 78 mm[Hg] [facility]; [facility] Work Phone: Comment on above: Patient Position: Sitting; Cuff Location : Left Arm; Cuff Size: Standard 01-11-2023 13:06-0500 Heart rate 79 /min Toniebridgett Langford [facility]; [facility] Work Phone: Comment on above: Pattern: Regular 01-11-2023 13:06-0500 Respiratory rate 16 /min [facility]; [facility] Work Phone: Comment on above: Pattern: Unlabored 01-11-2023 13:06-0500 SaO2% (BldA) [Mass fraction] 96 % Tonie Langford [employer] 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 [facility]; [facility] Work Phone: Comment on above: Room air 01-11-2023 13:06-0500 Systolic blood pressure 118 mm[Hg] Tonie Langford [facility]; [facility] Work Phone: Comment on above: Patient Position: Sitting; Cuff Location : Left Arm; Cuff Size: Standard 07-09-2022 07:28-040 Body height 162.56 cm [facility]; [facility] Work Phone: 07-09-2022 07:28-0400 Body mass index (BMI) [Ratio] 24.1 kg/m2 [facility] Internal Medicine; [facility] Work Phone: 07-09-2022 07:28-0400 Body surface area Derived from formula 1.68 m2 [facility] Internal [facility]; [facility] Work Phone: 07-09-2022 07:28-0400 Body temperature 97.1 [degF] [facility]; [facility] Work Phone: 07-09-2022 07:28-040 Body weight 63.67 kg Raheem [facility] Medicine; [facility] Work Phone: 07-09-2022 07:28-0400 Diastolic blood pressure 80 mm[Hg] [facility]; [facility] Work Phone: Comment on above: Patient Position: Sitting; Cuff Location : Left Arm; Cuff Size: Standard 07-09-2022 07:28-0400 Heart rate 55 /min [facility]; [facility] Work Phone: Comment on above: Pattern: Regular 07-09-2022 07:28-0400 Respiratory rate 16 /min [facility]; [facility] Work Phone: Comment on above: Pattern: Unlabored 07-09-2022 07:28-0400 SaO2% (BldA) [Mass fraction] 95 % Raheem Fuentes [facility]; [facility] Work Phone: Comment on above: Room air 07-09-2022 07:28-0400 Systolic blood pressure 122 mm[Hg] Raheem Fuentes [facility]; [facility] Work Phone: Comment on above: Patient Position: Sitting; Cuff Location : Left Arm; Cuff Size: Standard 04-28-2022 11:56-0400 Body height 162.56 cm Rajat A Fast DO Work Phone: [facility]; [facility] Work Phone: 04-28-2022 11:56-0400 Body mass index (BMI) [Ratio] 23.69 kg/m2 Rajat A Fast DO Work Phone: Comprehensive [...] 12-29-2021 13:33-0500 Body height 162.56 [facility]; [facility] Work Phone: 12-29-2021 13:33-0500 Body mass index (BMI) [Ratio] 24.57 kg/m2 [facility]; [facility] Work Phone: 12-29-2021 13:33-0500 Body surface area Derived from formula 1.7 m2 [facility]; [facility] Work Phone: 12-29-2021 13:33-0500 Body temperature 96.9 [degF] [facility]; [facility] Work Phone: Comment on above: Method: Thermal Scan 12-29-2021 13:33-0500 Body weight 64.92 [facility]; [facility] Work Phone: 12-29-2021 13:33-0500 Diastolic blood pressure 78 mm[Hg] [facility]; [facility] Work Phone: Comment on above: Patient Position: Sitting; Cuff Location : Left Arm; Cuff Size: Standard 12-29-2021 13:33-0500 Heart rate 60 /min Tonie Langford [facility]; [facility] Work Phone: Comment on above: Pattern: Regular 12-29-2021 13:33-0500 Respiratory rate 16 /min Tonie Langford [facility]; [facility] Work Phone: Comment on above: Pattern: Unlabored 12-29-2021 13:33-0500 Systolic blood pressure 120 mm[Hg] Tonie Langford [facility]; [facility] Work Phone: Comment on above: Patient Position: Sitting; Cuff Location : Left Arm; Cuff Size: Standard 07-14-2021 10:55-0400 Body height 162.56 cm Tonie Langford [facility]; [facility] Work Phone: 07-14-2021 10:55-0400 Body mass index (BMI) [Ratio] 24.05 kg/m2 Tonie Langford [facility]; [facility] Work Phone: 07-14-2021 10:55-0400 Body surface area Derived from formula 1.68 m2 [facility]ie [facility]; [facility] Work Phone: 07-14-2021 10:55-0400 Body temperature 97.1 [degF] Tonie Langford [facility]; [facility] Work Phone: Comment on above: Method: Thermal Scan 07-14-2021 10:55-0400 Body weight 63.56 kg Tonie Langford [facility]; [facility] Work Phone: 07-14-2021 10:55-0400 Diastolic blood pressure 82 mm[Hg] Tonie Langford [facility]; [facility] Work Phone: Comment on above: Patient Position: Sitting; Cuff Location : Left Arm; Cuff Size: Standard 07-14-2021 10:55-0400 Heart rate 83 /min Toniebridgett Langford [facility]; [facility] Work Phone: Comment on above: Pattern: Regular 07-14-2021 10:55-0400 Respiratory rate 16 /min Tonie Langford [facility]; [facility] Work Phone: Comment on above: Pattern: Unlabored 07-14-2021 10:55-0400 Systolic blood pressure 120 mm[Hg] Tonie Langford [facility]; [facility] Work Phone: Comment on above: Patient Position: Sitting; Cuff Location : Left Arm; Cuff Size: Standard 06-09-2021 08:06-0400 Body height 162.56 cm Tonie Langford [facility]; [facility] Work Phone: 06-09-2021 08:06-0400 Body mass index (BMI) [Ratio] 24.03 kg/m2 Tonie Langford [facility]; [facility] Work Phone: 06-09-2021 08:06-0400 Body surface area Derived from formula 1.68 m2 Tonie Langford [facility]; [facility] Work Phone: 06-09-2021 08:06-0400 Body temperature 96.9 [degF] Tonie Langford [facility]; [facility] Work Phone: Comment on above: Method: Thermal Scan 06-09-2021 08:06-0400 Body weight 63.5 kg Tonie Langford [facility]; [facility] Work Phone: 06-09-2021 08:06-0400 Diastolic blood pressure 64 mm[Hg] Tonie Langford [facility]; [facility] Work Phone: Comment on above: Patient Position: Sitting; Cuff Location : Left Arm; Cuff Size: Standard 06-09-2021 08:06-0400 Respiratory rate 16 /min Tonie Langford [facility]; [facility] Work Phone: Comment on above: Pattern: Unlabored 06-09-2021 08:06-0400 Systolic blood pressure 122 mm[Hg] Tonie Langford [facility]; [facility] Work Phone: Comment on above: Patient Position: Sitting; Cuff Location : Left Arm; Cuff Size: Standard 05-07-2021 07:41-0400 Body height 162.56 cm [facility]; [facility] Work Phone: 05-07-2021 07:41-0400 Body mass index (BMI) [Ratio] 24.37 kg/m2 [facility]; [facility] Work Phone: 05-07-2021 07:41-0400 Body surface area Derived from formula 1.69 m2 [facility]; [facility] Work Phone: 05-07-2021 07:41-0400 Body temperature 96.9 [degF] [facility]; [facility] Work Phone: Comment on above: Method: Thermal Scan 05-07-2021 07:41-0400 Body weight 64.41 kg [facility]; [facility] Work Phone: 05-07-2021 07:41-0400 Diastolic blood pressure 74 mm[Hg] [facility]; [facility] Work Phone: Comment on above: Patient Position: Sitting; Cuff Location : Left Arm; Cuff Size: Standard 05-07-2021 07:41-0400 Heart rate 59 /min [facility]; [facility] Work Phone: Comment on above: Pattern: Regular 05-07-2021 07:41-0400 Respiratory rate 16 /min [facility]; [facility] Work Phone: Comment on above: Pattern: Unlabored 05-07-2021 07:41-0400 SaO2% (BldA) [Mass fraction] 96 % [facility]; [facility] Work Phone: Comment on above: Room air 05-07-2021 07:41-0400 Systolic blood pressure 120 mm[Hg] [facility]; [facility] Work Phone: Comment on above: Patient Position: Sitting; Cuff Location : Left Arm; Cuff Size: Standard 12-08-2020 14:08-0500 BMI (Body Mass Index) 24.37 kg/m2 [facility] Internal Medicine; [facility] Work Phone: 12-08-2020 14:08-0500 Body weight 64.41 kg [facility]; [facility] Work Phone: 12-08-2020 14:08-0500 BSA (Body Surface Area) 1.69 m2 [facility]; [facility] Work Phone: 12-08-2020 14:08-0500 Height 162.56 cm [facility]; [facility] Work Phone: 08-20-2020 11:39-0400 BMI (Body Mass Index) 24.37 kg/m2 Tatiana Rinconius [facility] Internal Medicine Work Phone: 08-20-2020 11:39-0400 Body Temperature 97.3 [degF] Tatiana Gravius [facility] Work Phone: Comment on above: Method: Infrared 08-20-2020 11:39-0400 Body weight 64.41 kg Tatiana Mckenzieius [facility] Work Phone: 08-20-2020 11:39-0400 BP Diastolic 88 mm[Hg] Tatiana Gravius [facility] Internal Medicine Work Phone: Comment on above: Patient Position: Sitting; Cuff Location : Left Arm; Cuff Size: Standard 08-20-2020 11:39-0400 BP Systolic 128 mm[Hg] Tatiana Gravius [facility] Internal Medicine Work Phone: Comment on above: Patient Position: Sitting; Cuff Location : Left Arm; Cuff Size: Standard 08-20-2020 11:39-0400 BSA (Body Surface Area) 1.69 m2 Tatiana Gravius [facility] Internal Medicine Work Phone: 08-20-2020 11:39-0400 Height 162.56 cm Tatiana Thompson [facility] Internal Medicine Work Phone: 08-20-2020 11:39-0400 Pulse (Heart Rate) 60 /min Tatiana Thompson [facility] Internal Medicine Work Phone: Comment on above: Pattern: Regular 08-20-2020 11:39-0400 Pulse Oximetry 97 % Dee Alvarez [facility] Internal Medicine Work Phone: Comment on above: Room air 08-20-2020 11:39-0400 Respiratory Rate 18 /min Tatiana Thompson [facility] Internal Medicine Work Phone: Comment on above: Pattern: Unlabored 08-20-2020 11:39-0400 SaO2% (BldA) [Mass fraction] 97 % Tatiana Thompson [facility] Internal Medicine; [facility] Work Phone: Comment on above: Room air 04-04-2020 11:47-0400 BMI (Body Mass Index) 24.89 kg/m2 Tatiana Thompson [facility] Internal Medicine Work Phone: 04-04-2020 11:47-0400 Body Temperature 97 [degF] Tatiana Thompson [facility] Internal Medicine Work Phone: Comment on above: Method: Temporal 04-04-2020 11:47-0400 Body weight 65.77 kg Tatiana Thompson [facility] Internal Medicine Work Phone: 04-04-2020 11:47-0400 BP Diastolic 88 mm[Hg] Tatiana Thompson [facility] Internal Medicine Work Phone: Comment on above: Patient Position: Sitting; Cuff Location : Left Arm; Cuff Size: Standard 04-04-2020 11:47-0400 BP Systolic 126 mm[Hg] Tatiana Thompson [facility] Internal Medicine Work Phone: Comment on above: Patient Position: Sitting; Cuff Location : Left Arm; Cuff Size: Standard 04-04-2020 11:47-0400 BSA (Body Surface Area) 1.71 m2 Tatiana Thompson [facility] Internal Medicine Work Phone: 04-04-2020 11:47-0400 Height 162.56 cm Tatiana Thompson [facility] Work Phone: 04-04-2020 11:47-0400 Pulse (Heart Rate) 56 /min Tatiana Thompson [facility] Medicine Work Phone: Comment on above: Pattern: Regular 04-04-2020 11:47-0400 Pulse Oximetry 95 % Dee Alvarez [facility] Work Phone: Comment on above: Room air 04-04-2020 11:47-0400 Respiratory Rate 18 /min Tatiana Thompson [facility] Work Phone: Comment on above: Pattern: Unlabored 04-04-2020 11:47-0400 SaO2% (BldA) [Mass fraction] 95 % Tatiana Thompson [facility] Internal Medicine; [facility] Work Phone: Comment on above: Room air 08-10-2016 13:56-0400 BMI (Body Mass Index) 24.89 kg/m2 Karime Slarb [employer] [facility] Internal Medicine Work Phone: 08-10-2016 13:56-0400 Body Temperature 98.4 [degF] Karime Slarb [employer] [facility] Internal Medicine Work Phone: 08-10-2016 13:56-0400 Body weight 65.77 kg Karime Slarb [employer] [facility] Internal Medicine Work Phone: 08-10-2016 13:56-0400 BP Diastolic 76 mm[Hg] Karime Slarb [employer] [facility] Internal Medicine Work Phone: Comment on above: Patient Position: Sitting; Cuff Location : Left Arm; Cuff Size: Standard 08-10-2016 13:56-0400 BP Systolic 118 mm[Hg] Karime Slarb [employer] [facility] Internal Medicine Work Phone: Comment on above: Patient Position: Sitting; Cuff Location : Left Arm; Cuff Size: Standard 08-10-2016 13:56-0400 BSA (Body Surface Area) 1.71 m2 Karime Slarb [employer] [facility] Internal Medicine Work Phone: 08-10-2016 13:56-0400 Height 162.56 cm Karime Gay [employer] [facility] Work Phone: 08-10-2016 13:56-0400 Pulse (Heart Rate) 55 /min Karime Gay LPN Comprehensiv e Internal Medicine Work Phone: Comment on above: Pattern: Regular 08-10-2016 13:56-0400 Pulse Oximetry 97 % Dee Alvarez [facility] Work Phone: Comment on above: Room air 08-10-2016 13:56-0400 Respiratory Rate 16 /min Karime Gay [employer] [facility] Work Phone: Comment on above: Pattern: Unlabored 08-10-2016 13:56-0400 SaO2% (BldA) [Mass fraction] 97 % Karime Gay [employer] [facility]; [facility] Work Phone: Comment on above: Room air 08-07-2015 12:01-0400 BMI (Body Mass Index) 23.86 kg/m2 Lovely Andrea Comprehen sive Internal Medicine Work Phone: 08-07-2015 12:01-0400 Body Temperature 97.8 [degF] Lovely Andrea [facility] Internal Medicine Work Phone: 08-07-2015 12:01-0400 Body weight 63.05 kg Lovely Andrae [facility] Internal Medicine Work Phone: 08-07-2015 12:01-0400 BP Diastolic 72 mm[Hg] Lovely Andrea [facility] Internal Medicine Work Phone: Comment on above: Patient Position: Sitting; Cuff Location : Left Arm; Cuff Size: Standard 08-07-2015 12:01-0400 BP Systolic 112 mm[Hg] Lovely Andrea [facility] Internal Medicine Work Phone: Comment on above: Patient Position: Sitting; Cuff Location : Left Arm; Cuff Size: Standard 08-07-2015 12:01-0400 BSA (Body Surface Area) 1.68 m2 Lovely Andrea [facility] Internal Medicine Work Phone: 08-07-2015 12:01-0400 Height 162.56 cm Lovely Emre [facility] Internal Medicine Work Phone: 08-07-2015 12:01-0400 Pulse (Heart Rate) 62 /min Lovely Perezdavina Comprehensiv e Internal Medicine Work Phone: Comment on above: Pattern: Regular 08-07-2015 12:01-0400 Pulse Oximetry 97 % Dee Alvarez [facility] Internal Medicine Work Phone: Comment on above: Room air 08-07-2015 12:01-0400 Respiratory Rate 16 /min Lovely Emre [facility] Internal Medicine Work Phone: Comment on above: Pattern: Unlabored 08-07-2015 12:01-0400 SaO2% (BldA) [Mass fraction] 97 % Lovely Emre [facility] Internal Medicine; [facility] Work Phone: Comment on above: Room air 07-22-2015 10:20-0400 BMI (Body Mass Index) 23.86 kg/m2 Lovely Emre Comprehen sive Internal Medicine Work Phone: 07-22-2015 10:20-0400 Body Temperature 98.2 [degF] Lovely Emre [facility] Internal Medicine Work Phone: Comment on above: Method: Oral 07-22-2015 10:20-0400 Body weight 63.05 kg Lovely Andrea [facility] Internal Medicine Work Phone: 07-22-2015 10:20-0400 BP Diastolic 76 mm[Hg] Lovely Emre [facility] Internal Medicine Work Phone: Comment on above: Patient Position: Sitting; Cuff Location : Left Arm; Cuff Size: Standard 07-22-2015 10:20-0400 BP Systolic 104 mm[Hg] Lovely Andrea [facility] Internal Medicine Work Phone: Comment on above: Patient Position: Sitting; Cuff Location : Left Arm; Cuff Size: Standard 07-22-2015 10:20-0400 BSA (Body Surface Area) 1.68 m2 Lovely Andrea [facility] Internal Medicine Work Phone: 07-22-2015 10:20-0400 Height 162.56 cm Lovely Andrea [facility] Internal Medicine Work Phone: 07-22-2015 10:20-0400 Pulse (Heart Rate) 52 /min Lovely Andrea Comprehensiv e Internal Medicine Work Phone: Comment on above: Pattern: Regular 07-22-2015 10:20-0400 Respiratory Rate 16 /min Lovely Goodwintavon [facility] Internal Medicine Work Phone: Comment on above: Pattern: Unlabored 03-25-2014 09:45-0400 BMI (Body Mass Index) 24.18 kg/m2 [facility] Work Phone: 03-25-2014 09:45-0400 Body Temperature 97.4 [degF] Lovely Perezdavina [facility] Internal Medicine Work Phone: 03-25-2014 09:45-0400 Body weight 64.41 kg Lovely Perezdavina [facility] Internal Medicine Work Phone: 03-25-2014 09:45-0400 BP Diastolic 72 mm[Hg] Lovely Goodwintavon [facility] Internal Medicine Work Phone: Comment on above: Patient Position: Sitting; Cuff Location : Left Arm; Cuff Size: Large 03-25-2014 09:45-0400 BP Systolic 112 mm[Hg] Lovely Goodwintavon [facility] Internal Medicine Work Phone: Comment on above: Patient Position: Sitting; Cuff Location : Left Arm; Cuff Size: Large 03-25-2014 09:45-0400 BSA (Body Surface Area) 1.7 m2 Lovely Goodwintavon [facility] Internal Medicine Work Phone: 03-25-2014 09:45-0400 Height 163.19 cm Lovely Perezdavina [facility] Internal Medicine Work Phone: 03-25-2014 09:45-0400 Pulse (Heart Rate) 48 /min Lovely Goodwintavon Comprehens[facility] e Internal Medicine Work Phone: Comment on above: Pattern: Regular 03-25-2014 09:45-0400 Respiratory Rate 16 /min Lovely Goodwintavon [facility] Work Phone: Comment on [...] 08-25-2010 08:44-0400 Respiratory Rate 18 /min KANDACE Edson MAK [facility] Work Phone: Comment on [...] 08:06-0400 Body weight 0 kg Dee Alvarez [facility] Work Phone: 08-17-2007 08:06-0400 BP Diastolic 90 mm[Hg] Dee Alvarez [facility] Work Phone: Comment on above: Patient Position: Sitting; Cuff Location : Right Arm; Cuff Size: Standard 08-17-2007 08:06-0400 BP Systolic 130 mm[Hg] Dee Alvarez [facility] Work Phone: Comment on above: Patient Position: Sitting; Cuff Location : Right Arm; Cuff Size: Standard 08-17-2007 08:06-0400 Head Circumference 0 cm Dee Alvarez [facility] Work Phone: 08-17-2007 08:06-0400 Head Occipital-frontal circumference 0 cm Dee Alvarez DO Work Phone: [facility]; [facility] Work Phone: 08-17-2007 08:06-0400 Height 0 cm Dee Alvarez [facility] Work Phone: 08-17-2007 08:06-0400 Pulse (Heart Rate) 72 /min Dee Alvarez [facility] Work Phone: Comment on above: Pattern: Regular 08-17-2007 08:06-0400 Respiratory Rate 16 /min Dee Alvarez [facility] Work Phone: Comment on above: Pattern: Unlabored 09-01-2006 15:38-0400 Body Temperature 98.2 [degF] Dee Alvarez [facility] Work Phone: Comment on above: Method: Undefined 09-01-2006 15:38-0400 Body weight 0 kg eDe Alvarez [facility] Work Phone: 09-01-2006 15:38-0400 BP Diastolic 74 mm[Hg] Dee Alvarez [facility] Work Phone: Comment on above: Patient Position: Sitting; Cuff Location : Left Arm; Cuff Size: Standard 09-01-2006 15:38-0400 BP Systolic 122 mm[Hg] Dee Alvarez [facility] Work Phone: Comment on above: Patient Position: Sitting; Cuff Location : Left Arm; Cuff Size: Standard 09-01-2006 15:38-0400 Head Circumference 0 cm Dee Alvarez [facility] Work Phone: 09-01-2006 15:38-0400 Head [...] Date Encounter Type Care Provider Facility Start: 04-16-2025 End: 04-16-2025 Patient encounter procedure Juan Miller [facility] Work Phone: Start: 04-16-2025 End: 04-16-[address] Rajat Norton DO Work Phone: [facility] Work Phone: Start: 03-28-2025 ambulatory Rajat Fast Facility:[facility] Start: 03-13-2025 End: 03-13-[address] Rajat Norton DO Work Phone: [facility] Work Phone: Start: 03-13-2025 End: 03-13-[address] Rajat Norton DO -[facility] Work Phone: Start: 03-13-2025 End: 03-13-2025 ambulatory Rajat Fast Facility:[facility] Start: 02-12-2025 End: 02-12-2025 Patient encounter procedure Danni Gurrola PA-C Work Phone: Neurology Comment on above: Dementia without beh avioral disturbance, psychotic disturbance, mood disturbance, or anxiety, unspecified dementia severity, unspecified dementia type (HCC) (Primary Dx); Cognitive decline; Memory loss Start: 02-12-2025 End: 02-12-2025 ambulatory OZZIE ROBERTSON JR Facility:[facility] Start: 01-29-2025 End: 01-29-2025 Patient encounter procedure Juan Miller [facility] Work Phone: Start: 01-29-2025 End: 01-29-2025 ambulatory Rajat Fast Facility:[facility] Start: 01-24-2025 End: 01-24-2025 Telephone encounter Ozzie Robertson MD Work Phone: Neurology Comment on above: Patient Question; Pa tient Update Start: 01-17-2025 End: 01-17-[address] Rajat Norton DO -Laboratory Work Phone: Start: 01-17-2025 End: 01-17-2025 ambulatory Rajat Fast Facility:[facility] Start: 12-25-2024 End: 12-25-2024 Telephone encounter Ozzie Robertson MD Work Phone: [facility] Comment on above: Medication Question Start: 11-23-2024 End: 11-23-2024 Telephone encounter Ozzie Robertson MD Work Phone: Neurology Comment on above: Patient Question Start: 11-02-2024 End: 11-02-2024 Patient encounter procedure Ozzie Robertson MD Work Phone: Neurology Comment on above: Cognitive decline (P rimary Dx); Memory loss Start: 11-02-2024 End: 11-02-2024 ambulatory RAJAT A FAST Facility:[facility] Start: 10-19-2024 Encounter for other preprocedural examination Russell Najera [facility] Start: 09-20-2024 ambulatory Health Risk Assessment Facility:[facility] Start: 09-20-2024 End: 09-20-2024 ambulatory Rajat Fast Facility:[facility] Start: 07-31-2024 End: 07-31-2024 Refill Ozzie Robertson MD Work Phone: [facility] Comment on above: Refill Request Start: 07-24-2024 End: 07-24-2024 ambulatory Rajat Fast Facility:[facility] Start: 07-05-2024 End: 07-05-2024 ambulatory Rajat Fast Facility:[facility] Start: 06-07-2024 End: 06-08-2024 ambulatory Rajat Fast Facility:[facility] Start: 05-04-2024 End: 05-04-2024 ambulatory RJAAT A FAST Facility:[facility] Start: 05-04-2024 End: 05-04-2024 Patient encounter procedure Ozzie Robertson MD Work Phone: Neurology Comment on above: Cognitive decline (P rimary Dx); Memory loss Start: 05-01-2024 End: 05-01-2024 ambulatory Rajat Fast Facility:[facility] Start: 04-06-2024 Refill Ozzie patterson MD Work Phone: Neurology Comment on above: Refill Request Start: 03-22-2024 End: 03-22-[address] Rajat Fast Work Phone: [facility] Work Phone: Start: 03-22-2024 End: 03-22-[address] [facility] Start: 03-22-[address] Rajat Norton Work Phone: [facility] Work Phone: Start: 01-31-2024 Telephone encounter zOzie Robertson MD Work Phone: Neurology Comment on above: Patient Question Start: 12-30-2023 End: 12-30-2023 Patient encounter procedure Ozzie Robertson MD Work Phone: Neurology Comment on above: Cognitive decline (P rimary Dx); Memory loss Start: 12-27-2023 End: 12-27-[address] Rajat Norton Work Phone: [facility] Work Phone: Start: 12-27-2023 End: 12-27-[address] Rajat Norton Work Phone: [facility] Work Phone: Start: 12-20-2023 End: 12-20-[address] Rajat Norton Work Phone: [facility] Work Phone: Start: 12-09-2023 End: 12-09-[address] Rajat Norton Work Phone: [facility] Work Phone: Start: 12-09-2023 End: 12-09-[address] Rajat Norton Work Phone: [facility] Work Phone: Start: 12-09-[address] Rajat Norton Work Phone: [facility] Work Phone: Start: 11-14-2023 Telephone encounter Danni decker PA-C Work Phone: Neurology Start: 11-10-2023 Telephone encounter Danni decker PA-C Work Phone: Neurology Comment on above: Patient Update; Fátima ent Question Start: 10-11-2023 Telephone encounter Danni Alberto decker PA-C Work Phone: [facility] Comment on above: prior authorization Start: 10-04-2023 Telephone encounter Ozzie Robertson MD Work Phone: [facility] Comment on above: Results Start: 10-04-2023 End: 10-04-2023 Subsequent hospital visit by physician [facility] (I-Stat/1.5t) Work Phone: Radiology Comment on above: Memory loss [R41.3] Start: 09-15-[address] Rajat Norton Work Phone: [facility] Start: 2023 End: 2023 Patient encounter procedure Ozzie Robertson MD Work Phone: Neurology Comment on above: Memory loss (Primary Dx); Cognitive decline Start: 07-25-2023 End: 07-25-2023 ambulatory [facility] Work Phone: Start: 07-25-2023 End: 07-25-2023 Patient encounter procedure [facility] Work Phone: Start: 07-13-2023 End: 07-13-2023 Phone Encounter Rajat Fast DO Work Phone: [facility] Start: 07-12-2023 End: 07-12-2023 ambulatory [facility] Work Phone: Start: 07-12-2023 End: 07-12-2023 [facility] Start: 07-12-2023 End: 07-17-2023 Office outpatient visit 15 minutes Rajat Fast DO Work Phone: [facility] Start: 07-12-2023 Review Rajat Fast DO Work Phone: [facility] Start: 07-05-2023 End: 07-05-[address] Rajat Norton Work Phone: [facility] Work Phone: Start: 07-05-2023 End: 07-05-[address] Rajat Norton Work Phone: [facility] Work Phone: Start: 06-08-2023 Telephone encounter Neurology Provid er Neurology Comment on above: Appointment Start: 04-20-2023 End: 04-20-[address] Rajat Norton Work Phone: [facility] Work Phone: Start: 04-20-2023 End: 04-20-[address] Rajat Norton Work Phone: [facility]-Outpatient Bone Densitometry Start: 03-11-2023 End: 03-11-[address] Rajat Norton Work Phone: [facility] Start: 02-08-2023 End: 02-08-[address] Rajat Dorsey Phone: [facility] Start: 01-26-[address] Rajat Norton Work Phone: [facility]Cardiovascular Services Start: 01-11-2023 ambulatory Rajat Norton DO Compreh ensive Internal Med Start: 01-11-2023 End: 01-11-2023 Office outpatient visit 25 minutes Rajat Norton DO Work Phone: [facility] Start: 01-07-2023 End: 01-07-2023 ambulatory [facility] Work Phone: Start: 01-07-2023 End: 01-07-2023 Patient encounter procedure [facility] Start: 12-21-2022 End: 12-21-2022 Phone Encounter Rajat Norton DO Work Phone: [facility] Start: [...] 01-30-2021 End: 01-30-2021 Annotation/Addendum Dee Alvarez [facility] Start: 12-08-2020 End: 12-08-2020 Office outpatient visit 10 minutes Dee Alvarez [facility] Start: 08-20-2020 End: 08-20-2020 Office outpatient visit 15 minutes Dee Alvarez [facility] Start: 08-01-2020 End: 08-01-2020 Annotation/Addendum Dee Alvarez [facility] Start: 07-25-2020 End: 07-25-2020 Annotation/Addendum Dee Alvarez [facility] Start: 04-04-2020 End: 04-04-2020 Patient encounter status Rajat Fast DO Work Phone: [facility] Start: 04-04-2020 End: 04-04-2020 Periodic preventive med est patient 65yrs& older Dee Alvarez [facility] Start: 08-12-2017 End: 08-12-2017 Lab Order Dee Alvarez [facility] Start: 08-10-2016 End: 08-10-2016 Periodic preventive med est patient 40-64yrs Dee Alvarez [facility] Start: 09-01-2015 End: 09-01-2015 Phone Encounter Dee Alvarez [facility] Start: 09-01-2015 End: 09-01-2015 Physical [...] 01-24-2013 End: 01-24-2013 Patient encounter procedure Dee Antonio [facility] Start: 08-25-2010 End: 08-25-2010 Patient encounter procedure Dee Alvarez [facility] Start: 08-25-2010 End: 08-25-2010 Physical examination Rajat Fast DO Work Phone: [facility] Start: 02-18-2010 End: 02-18-2010 Patient encounter procedure Dee Alvarez [facility] Start: 04-29-2008 End: 04-29-2008 Patient encounter procedure Deedirk Alvarez [facility] Start: 04-11-2008 End: 04-11-2008 Historical Summary Deedirk Alvarez [facility] Start: 04-10-2008 End: 04-10-2008 Office outpatient visit 25 minutes Dee Alvarez [facility] Start: 01-23-2008 End: 01-23-2008 Patient encounter procedure Dee Antonio [facility] Start: 08-17-2007 End: 08-17-2007 Patient encounter procedure Deedirk Alvarez [facility] Start: 09-01-2006 End: 09-01-2006 Patient encounter procedure Dee Antonio [facility] Patient encounter status Disha Carnes LPN [facility]; [facility] Work Phone: Patient encounter status Tonie Langford CMA [facility]; [facility] Work Phone: Patient encounter status Tonie Langford [facility]; [facility] Work Phone: Patient encounter status Tonie Langford [facility]; [facility] Work Phone: Patient encounter status Raheem Fuentes [facility]; [facility] Work Phone: Patient encounter status Tonie Langford [facility]; [facility] Work Phone: Patient encounter status Tonie Langford [facility]; [facility] Work Phone: Physical examination [facility] Internal Medicine; [facility] Work Phone: Physical examination Tonie Langford [facility]; [facility] Work Phone: Physical examination Tonie Langford [facility]; [facility] Work Phone: Physical examination Tonie Langford [facility]; [facility] Work Phone: Physical examination Raheem Fuentes [facility] C [facility]; [facility] Work Phone: Physical examination Tonie Langford [facility]; [facility] Work Phone: Physical examination Tonie Langford [facility]; [facility] Work Phone: Procedures Date Procedure Procedure Detail Performing Clinician Start: 03-13-2025 MRI of joint of lower extremity Dr. Rajat Norton DO Work Phone: Start: 01-17-[address] Rajat Norton DO Work Phone: Start: 01-17-2025 Measurement of renal function Dr. Rajat Norton DO Work Phone: Comment on above: GFR Calc Start: 01-17-2025 Vitamin D, 25-hydroxy measurement Dr. Rajat Norton DO Work Phone: Comment on above: Vitamin D 25(OH) Status Range Deficiency <20 ng/mL (50nmol/L) Insufficiency 20 - 30 ng/mL (50 - 75 nmol/L) Sufficiency 30 - 100 ng/mL (75 - 250 nmol/L) Toxicity >100 ng/mL (>250 nmol/L) Start: 12-27-2023 Plain chest X-ray Dr. Rajat Norton Work Phone: Start: 10-04-2023 3d rendering w/interp&postproc diff work station Ozzie Robertson MD Work Phone: Start: 10-04-2023 Mri brain brain stem w/o contrast material Ozzie Robertson MD Work Phone: Start: 07-25-2023 MRI of joint of lower extremity Start: 07-12-2023 Plain X-ray of shoulder Start: 07-12-2023 End: 07-13-2023 Shoulder min 2 Views Procedure Note: See Note; NOTES: [facility] Imaging Services [address] [place] [address] Shoulder min 2 Views MR#: [id number] Acct: [id number] Name: ERIN DYSON APOLLO Rep #: [id number] : 1955 F 67 From: Won Daniels PCP: Dr. Rajat Norton DO Status: REG CLI Study: Shoulder min 2 Views Date of Exam: 07/12/23 Exam# [id number] Ordering Dr: Rajat Norton DO EXAM: XR LEFT SHOULDER COMPLETE, 2 [...] at 4:58 EDT , CC: Dr. Rajat Norton DO Professional Nurse: Signed Rajat Norton DO Work Phone: Start: 07-05-2023 End: 07-05-2023 PT D/C Summary (1) Procedure Note: See Note; NOTES: [facility] [address] [place] [address] / REHABILITATION SERVICES DISCHARGE SUMMARY MR#: [id number] Acct: [id number] Name: ERIN DYSON Rep #: [id number] : 1955 67 From: Karime SÁNCHEZ Referring DrChau: Yamilex Arnold DO Status: REG RCR Insurance: Apply [employer]/[facility] SELF PAY INSURANCE Discharge Summary D/C summary: [...] Progressing Plan Plan: DC PT back to Pt will call again today D/C Information Discharge Comments: DC PT back to d/c sentence: If there are questions or concerns regarding this patient's physical therapy, please feel free to call me at [phone]. Thank you for the referral of this patient. Sincerely, GONZALO Farrell Balance/Gait/Functional tests Balance/Special Test Scores Quick DASH Score: 47.7250 <Electronically signed by Karime Ariza MPT> 07/05/23 0755 CC: Dr. Rajat Norton DO; Yamilex Arnold DO Signed Rajat Norton DO Work Phone: Start: 06-30-2023 End: 06-30-2023 Re-Evaluation - PT (1) Procedure Note: See Note; NOTES: [facility] [address] [place] [address] / REEVALUATION / MEDICARE RECERTIFICATION PHYSICAL THERAPY MR#: [id number] Acct: [id number] Name: ERIN DYSON Rep #: [id number] : 1955 67 From: Fermin Lynch DPT Referring Dr.: Yamilex Arnold DO Status:REG RCR Insurance: Apply [employer]/[facility] SELF PAY INSURANCE Re-Evaluation Intro: Yamilex Arnold [...] do not hesitate to contact me at [phone] by phone or if you have questions or concerns regarding this new plan of care! Sincerely, Fermin Lynch, DPT <Electronically signed by Fermin Lynch DPT> 06/30/23 0836 CC: Dr. Rajat Norton DO; Yamilex Arnold DO CLS Signed For Medicare only, by signing this I certify the plan of care. __ Physicians Signature Date Rajat Norton DO Work Phone: Start: 06-08-2023 End: 06-08-2023 Inital Evaluation (1) - PT Procedure Note: See Note; NOTES: [facility] [address] [place] [address] [address] [place] [address] / REHABILITATION SERVICES INITIAL EVALUATION MR#: [id number] Acct: [id number] Name: ERIN DYSON Rep #: [id number] : 1955 67 From: Karime SÁNCHEZ Referring DrChau: Yamilex Arnold DO Status: REG RCR Insurance: Apply [employer]/[facility] SELF PAY INSURANCE Patient's Visit Information Visit [...] to be FAXED BACK to us at [phone] for Medicare purposes. For Medicare only, by signing this I certify the plan of care. Please let me know if there are questions or concerns regarding this plan of care. Physician Signature: Date: <Electronically signed by Karime Ariza MPT> 06/08/23 1902 CC: Dr. Rajat Norton DO; Yamilex Arnold DO Signed Rajat Norton DO Work Phone: Start: 04-20-2023 End: 04-27-2023 Dexa Bone Density Study Procedure Note: See Note; NOTES: [facility] Imaging Services [address] [place] [address] Dexa Bone Density Study MR#: [id number] Acct: [id number] Name: ERIN DYSON Rep #: [id number] : 1955 F 67 From: Rafal rosas MD PCP: Dr. Rajat Norton DO Status: DEP CLI Study: Dexa Bone Density Study Date of Exam: 04/20/23 Exam# [id number] Ordering Dr: Rajat Norton DO STUDY: DUAL ENERGY X-RAY ABSORPTIOMETRY / [...] at 12:14 EDT , CC: Dr. Rajat oNrton DO Professional Nurse: Signed Rajat Norton DO Work Phone: Start: 04-20-2023 Dual energy X-ray absorptiometry Dr. Rajat Norton Work Phone: Start: 04-20-2023 Screening mammography of bilateral breasts Dr. Rajat Norton Work Phone: Start: 04-20-2023 End: 04-21-2023 SCREENING MAMM (CAD), BILAT Procedure Note: See Note; NOTES: [facility] Imaging Services [address] [place] [address] SCREENING MAMM (CAD), BILAT MR#: [id number] Acct: [id number] Name: ERIN DYSON Rep #: [id number] : 1955 F 67 From: Servando Thomason DO PCP: Dr. Rajat Norton DO Status: REG CLI Study: SCREENING MAMM (CAD), BILAT Date of Exam: 03/29 03/20 Exam# [id number] Ordering Dr: Rajat Norton DO MAMMOGRAPHY - BILATERAL SCREENING REASON FOR [...] at 11:30 EDT , CC: Dr. Rajat Norton DO Professional Nurse: Signed Rajat Norton DO Work Phone: Start: 03-11-2023 Plain chest X-ray Dr. Rajat Norton Work Phone: Start: 03-11-2023 End: 03-11-2023 Chest PA and Lateral Procedure Note: See Note; NOTES: [facility] Imaging Services [address] [place] [address] Chest PA and Lateral MR#: [id number] Acct: [id number] Name: ERIN DYSON APOLLO Rep #: [id number] : 1955 F 67 From: Mary jefferson MD PCP: Dr. Rajat Norton DO Status: REG CLI Study: Chest PA and Lateral Date of Exam: 03/11/23 Exam# [id number] Ordering Dr: Agustin Mooney HISTORY: Persistent cough. [...] 9:18 EDT Reading Location ID and State: [facility] / [place] Tel , Service support , CC: ANDRÉS Mooney; Dr. Rajat Norton DO Professional Nurse: Signed Rajat Norton DO Work Phone: Start: 03-11-2023 End: 03-11-2023 Urgent Care Visit Report Procedure Note: See Note; NOTES: [facility] [address] [place] [address] [address] [place] [address] OFFICE VISIT Date of Service: 03/11/23 MR#: [id number] Acct: [id number] Name: ERIN DYSON APOLLO Rep #: [id number] : 1955 Provider: ANDRÉS Mooney Age/Sex: 67/F Location: [facility] Status: Signed Intake Vital Signs 03/11/23 08:50 [...] #21 tabs 03/11/23 [Rx Confirmed 03/11/23] omega 0-doi-dfs-fish oil 60 mg-90 mg-500 mg capsule (Fish [...] at home: Yes additional social history: - Nfry-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-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 Chief Complaint: Cough Details: ERIN DYSON, [...] Cosigner Signature: Date (if applicable) CC: Rajat Norton DO Work Phone: Start: 02-08-2023 End: 02-08-2023 Gastroenterology Visit Report Procedure Note: See Note; NOTES: [facility] Gastroenterology [address] [facility] [address] OFFICE VISIT Date of Service: 02/08/23 MR#: [id number] Acct: [id number] Name: ERIN DYSON APOLLO Rep #: [id number] : 1955 Provider: Dickson Oro DO Age/Sex: 67/F Location: [facility] Status: Signed Intake Intake Visit Reasons: HEMORRHOID BANDING Allergies No Known Allergies Allergy (Verified 12/28/22 15:09) [facility] Medical History (Updated 02/08/23 @ 11:11 [...] at home: Yes additional social history: - Mlky-Hwen-tjmjfgci 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 to discuss symptomatic hemorrhoids with noted Grade 2-3 internal hemorrhoids during colonoscopy 8. Hemorrhoids causing difficulty with cleanliness following defecation. Recommendation made for surgical hemorrhoidectomy to treat prolapsing internal hemorrhoids and lax external skin. Surgical option not pursued. ? Colonoscopy 8 non-thrombosed internal hemorrhoids with prolapse requiring manual [...] bleeding noted. Follow up instruction provided. LOT [id number] Alert Retail Event And Sales Assistant Alert Billing: Yes Hemorrhoid 86134 Banding Quality Reporting Tobacco Screening ([facility] 138) Smoking Status: Never smoker Assessment [...] Hemorrhoid K64.9 CPT Codes Hemorrhoid - Hemorrhoid: 38842 Banding (24761) 02/08/231716 <Electronically signed by Dickson Oro DO> Date Dickson Oro DO Cosigndarcy Signature: Date (if applicable) CC: Rajat Norton DO Work Phone: Start: 04-19-2022 End: 04-19-2022 Office Visit Report Comments: See Note; NOTES: [place] [address] [address] [address] OFFICE VISIT Date of Service: 04/19/22 MR#: [id number] Acct: [id number] Patient: ERIN DYSON Rep #: [id number] : 1955 Provider: ANDRÉS Mooney Age/Sex: 66/F Location: [facility] Status: Signed Intake Intake Visit Reasons: PCR [...] Cosigner Signature: Date (if applicable) CC: Rajat Norton DO Work Phone: Start: 04-19-2022 End: 04-19-2022 Urgent Care Visit Report Comments: See Note; NOTES: [facility] [address] [place] [address] [address] [place] [address] OFFICE VISIT Date of Service: 04/19/22 MR#: [id number] Acct: [id number] Name: ERIN DYSON APOLLO Rep #: [id number] : 1955 Provider: ANDRÉS Mooney Age/Sex: 66/F Location: [facility] Status: Signed Intake Vital Signs 04/19/22 07:27 [...] No Known Allergies Allergy (Verified 07/24/21 05:48) PFSH Medical History (Updated 04/19/22 @ 08:00 by [...] at home: Yes additional social history: - Cext-Iuvr-iscyhkqd 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 Chief Complaint: toenail fungus Details: ERIN [...] Exam Const General: cooperative and well developed HENCT Head: normal to inspection and atraumatic Ears: [...] (1) COVID-19: Status: Acute Plan - Agustin BOWEN PA: Patient tested positive for COVID in [...] Cosigner Signature: Date (if applicable) CC: Rajat Norton DO Work Phone: Start: 04-06-2022 End: 04-06-2022 SCRN MAMM (CAD)W/ARTI BILAT Comments: See Note; NOTES: [facility] Imaging Services [address] [place] [address] SCRN MAMM (CAD)W/ARTI BILAT MR#: [id number] Acct: [id number] Name: ERIN DYSON APOLLO Rep #: [id number] : 1955 F 66 From: Rafal rosas MD PCP: Dr. Rajat Norton, DO Status: REG CLI Study: SCRN MAMM (CAD)W/ARTI BILAT Date of Exam: 03/28 Exam# [id number] Ordering Dr: Rajat Norton DO MAMMOGRAPHY - BILATERAL SCREENING REASON FOR [...] delay biopsy of a clinically suspicious abnormality. [id number] Electronically Signed: Rafal Dos Santos MD at 13:38 EDT , CC: Dr. Rajat Norton DO Professional Nurse: Signed Rajat Norton DO Work Phone: Start: 07-24-2021 End: 07-24-2021 Colonoscopy Report Comments: See Note; NOTES: [facility] Medical Records Department [address] [place] [address] Colonoscopy Report MR#: [id number] Acct: [id number] Name: ERIN DYSON Rep #: [id number] : 1955 65 From: Russell Najera MD PCP: Dr. Rajat Norton, DO Status:REG SDC Patient Name: Erin Dyson [...] surgical removal. Procedure Code(s): --- Professional --- 50723, Colonoscopy, flexible; diagnostic, including collection of specimen(s) by brushing or washing, when performed (separate procedure) 00592, 59, Moderate sedation services provided by the same physician or other qualified health coronary care unit nurse performing the diagnostic or therapeutic service that [...] or abscess without bleeding CPT copyright 2017 [employer]. All rights reserved. The codes documented in this report are preliminary and upon manager acquisition review may be revised to meet current compliance requirements. Russell Najera MD 07/24/2021 6:52:10 AM This report has been signed electronically. Number of Addenda: 0 Note Initiated On: 07/24/2021 6:12 AM 07/24/21 0652 Date Russell Najera MD Cosigner Signature: Date (if indicated) CC: Dr. Rajat Norton DO; Dr. Russell aNjera MD Date Dictated: 07/24/21611 Date Transcribed: Professional Nurse: TAWNYA Signed Rajat Norton DO Work Phone: Start: 07-24-2021 End: 07-24-2021 History and Physical Exam Comments: See Note; NOTES: [facility] Medical Records Department [address] [place] [address] History Physical Exam 07/24/21621 MR#: [id number] Acct: [id number] Name: ERIN DYSON Rep #: [id number] : 1955 65 From: Russell Najera MD PCP: Dr. 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 Rajat Norton DO; Dr. Russell Najera MD Signed Rajat Norton DO Work Phone: Start: 06-30-2021 End: 06-30-2021 Stress Report Comments: See Note; NOTES: [facility] Cardiovascular Services [address] [place] [address] MR#: [id number] Acct: [id number] Name: ERIN DYSON APOLLO Rep #: [id number] : 1955 65 From: Chad Baker MD Primary Care: Dr. Rajat Norton DO Status: R EG CLI Referring Dr: Rajat Norton DO Sex: F C Stress Test Report [...] of 75%. This note was generated with [employer] software. It may contain incorrect words, spelling, and punctuation that were not noted in checking the note before signing. 06/30/21 1320 <Electronically signed by Chad Baker MD> Date Chad Baker MD CC: Dr. Rajat Norton DO Date Dictated: 06/30/21 1316 Date Transcribed: 06/30/21 1316 Professional Nurse: PM Signed Rajat Norton DO Work Phone: Start: 06-30-2021 End: 06-30-2021 Echo Complete Comments: See Note; NOTES: [facility] Cardiovascular Services [address] [place] [address] Echo Complete 06/30/21817 MR#: [id number] Acct: [id number] Name: ERIN DYSON APOLLO Rep #: [id number] : 1955 65 From: Chad Baker MD Attending Dr: Dr. Rajat Norton, Status: REG CL I Ordering Dr: Rajat Norton DO Date: 06/30/21 Location: [facility] Sex: F C Admitted: Reason [...] function is indeterminate. _ Ordering Physician: Rajat Norton Referring Physician: Rajat Norton Performed By: Craig Maciel RCS 06/30/21 1507 Date Chad Baker MD CC: Dr. Rajat Norton DO Date Dictated: 06/30/21817 Date Transcribed: 06/30/211506 Professional Nurse: Armand Norton DO Work Phone: Start: 04-24-2021 End: 04-24-2021 Emergency Department Summary Comments: See Note; NOTES: [facility] Medical Records Department [address] [place] [address] Emergency Department Summary 04/24/21 MR#: [id number] Acct: [id number] Name: ERIN DYSON APOLLO Rep #: [id number] : 1955 65 From: Federico Issa MD PCP: Dr. 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 Call [facility] ([phone]) or report to the closest Emergency Room. Call 911 if necessary. 04/24/21 1500 <Electronically signed by Federico Issa MD> Cosigner Signature (if applicable): CC: Dr. Dee Alvarez DO Signed Dee Alvarez DO Work Phone: Start: 04-24-2021 End: 04-28-2021 12 Lead EKG Comments: See Note; NOTES: [facility] Cardiovascular Services [address] [place] [address] 12 Lead EKG 04/24/21 1026 MR#: [id number] Acct: [id number] Name: ERIN DYSON APOLLO Rep #: [id number] : 1955 65 From: Phillip Borrego MD [...] Normal sinus rhythm Normal ECG Confirmed by ELMO SEVERINO, PHILLIP ([id number]), staff editor LATASHA BRITTON ([id number]) on 04/28/2021 1:44:13 PM Referred By: GRZEGORZ Confirmed By:PHILLIP BORREGO MD 04/28/21 1344 Date Phillip Borrego MD CC: Dr. Federico Issa MD; Dr. Dee Alvarez DO Signed Dee Alvarez DO Work Phone: Start: 04-24-2021 End: 04-24-2021 Chest 1 View (Portable) Comments: See Note; NOTES: [facility] Imaging Services [address] [facility] [address] [place] [address] Chest 1 View (Portable) MR#: [id number] Acct: [id number] Name: ERIN DYSON APOLLO Rep #: [id number] : 1955 F 65 From: Orestes jefferson DO PCP: Dr. Dee Alvarez DO Status: REG ER Study: Chest 1 View (Portable) Date of Exam: 04/24/21 Exam# [id number] Ordering Dr: Federico Issa MD STUDY: X-RAY [...] Federico Issa MD; Dr. Dee Alvarez DO Professional Nurse: Signed Dee Alvarez DO Work Phone: Start: 02-24-2021 End: 02-24-2021 SCRN MAMM (CAD)W/ARTI BILAT Comments: See Note; NOTES: [facility] Imaging Services [address] [place] [address] SCRN MAMM (CAD)W/ARTI BILAT MR#: [id number] Acct: [id number] Name: ERIN DYSON APOLLO Rep #: [id number] : 1955 F 65 From: Rafal rosas MD PCP: Dr. Dee Alvarez DO Status: REG CLI Study: SCRN MAMM (CAD)W/ARTI BILAT Date of Exam: 01/28 Exam# [id number] Ordering Dr: Dee Alvarez DO MAMMOGRAPHY - [...] delay biopsy of a clinically suspicious abnormality. [id number] Electronically Signed: Rafal Dos Santos MD at 8:39 EDT , Service support , CC: Dr. Dee Alvarez DO Professional Nurse: Signed Dee Alvarez DO Work Phone: Start: 12-13-2020 End: 12-13-2020 Office Visit Report Comments: See Note; NOTES: [facility] [address] [address] OFFICE VISIT Date of Service: 12/13/20 MR#: [id number] Acct: [id number] Patient: ERIN DYSON APOLLO Rep #: [id number] : 1955 Provider: KATHLEEN jimenez Age/Sex: 65/F Location: [facility] Status: Signed Intake Vital Signs 12/13/20 BP [...] (Updated 12/13/20 @ 14:11 by Haydee Kilgore HALL MONITOR, HALL MONITOR-C) Smoking Status: Never smoker alcohol intake: current alcohol intake frequency: a few times a week Alcohol type: wine details: 2-3 glasses per week substance use type: does not use caffeine: Yes what type of physical activity do you participate in: walking, weight training frequency: 5-6 times per week seatbelt use: always do you feel safe at home: Yes additional social history: - Qysv-Hdhp-wchwrwsi 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 [place] [address] OFFICE VISIT Date of Service: 09/23/20 MR#: [id number] Acct: [id number] Name: ERIN DYSON APOLLO Rep #: [id number] : 1955 Provider: Dr. 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 Dee Alvarez, DO Status:[facility] Location: [address] Patient Problems: Active and Suspected Problems (Last [...] Intake Total 2214 / 3014 1972.17 / 1971.17 Output Total 475 / 1025 1700 / 1700 Balance 1738 272.17 / 272.17 General: Alert, Oriented x3 Laboratory Results 09/09/20 06:00: POC Glucose 96 09/09/20 15:08: WBC 10.5, RBC 3.85 L, Hgb 12.0, Hct 37.4, MCV 97.1, MCH 31.2, MCHC 32.1, RDW Std Deviation 45.1 H, RDW Coeff of Juan Carlos 12.8, Plt Count 193, MPV 9.0, Immature Gran % (Auto) 0.500, Neut % (Auto) 94.2 H, Lymph % (Auto) 3.0 L, Mobile % (Auto) 2.2, Eos % (Auto) 0.0, [...] 500 Mg Tablet) 1,000 mg PO Q6H [facility] Last Admin: 09/10/20 06:43 Dose: 1,000 mg Documented by: Cephalexin (Cephalexin 500 Mg Capsule) 500 mg PO Q12 [facility] Last Admin: 09/09/20 22:12 Dose: 500 mg Documented by: Docusate Sodium (Docusate Sodium 100 Mg Capsule) 100 mg PO BID [facility] Last Admin: 09/09/20 22:12 Dose: 100 mg Documented by: Enoxaparin Sodium (Enoxaparin 40 Mg/0.4 Ml Syringe) 40 mg SC DAILY [facility] Sodium Chloride () 250 mls @ 15 mls/hr IV .[id number] PRN PRN Reason: Saline Flush Sodium Chloride () 250 mls @ 15 mls/hr IV .[id number] PRN PRN Reason: Additional IVPB Infusion Lactated Ringer's () 1,000 mls @ 70 mls/hr IV .[id number] [facility] Stop: 09/10/20 12:30 Last Infusion: 09/10/20 05:22 Dose: Infused Documented by: Ketorolac Tromethamine (Ketorolac 30 Mg/Ml Syringe) 30 mg IV Q6H [facility] Stop: 09/10/20 18:31 Last Admin: 09/10/20 06:09 [...] 09-10-2020 Discharge Instruction Comments: See Note; NOTES: [facility] Medical Records Department [address] [place] [address] Instructions for Home/Discharge Instructions 09/09/20 1636 MR#: [id number] Acct: [id number] Name: ERIN DYSON APOLLO Rep #: [id number] : 1955 65 From: Patricia Blackman MD PCP: Dr. Dee Alvarez DO Status:REG [facility] Discharge Diet: No Restrictions Discharge Activity: Return [...] Reason: MILD PAIN Transmission Status: Received by [facility] Oxycodone HCl/Acetaminophen [Percocet 5-325] 1 - 2 tab PO Q6H PRN PRN 7 Days #15 tab PRN Reason: Pain Transmission Status: Received by [facility] Primary Care Physician: Dee Alvarez DO [Primary Care Provider] - Test Results: Test results from this visit will be discussed in further detail at your follow-up appointment, if applicable. Please Follow Up With: Patricia Blackman MD - [phone] 09/10/20 9235 <Electronically signed by Patricia Blackman MD> Date Patricia Blackman MD CC: Dr. Nan Robison MD; Dr. Dee Alvarez, DO Signed Dee Alvarez Start: 09-09-2020 End: 09-09-2020 Operative Report Comments: See Note; NOTES: [facility] Medical Records Department [address] [place] [address] Operative Report 09/09/20 1044 MR#: [id number] Acct: [id number] Name: ERIN DYSON APOLLO Rep #: [id number] : 1955 65 From: Nan Robison MD PCP: Dr. Dee Alvarez, Status:REG [facility] Y Location: [facility] VS814-0 Problem List (1) Cystocele Status: Chronic Qualifiers: Comment: plan tvh bso combo case with enriqueta (2) Uterovaginal [...] vaginal cuff, the case was turned to la. The patient had very thin vaginal mucosa. [...] orifice. On the right side a 5 [place] Helenian whistle-tip catheter was easily inserted into the [...] 09-09-2020 Operative Report Comments: See Note; NOTES: [facility] Medical Records Department [address] [facility] [place] [place] [address] Operative Report 09/09/20 0730 MR#: [id number] Acct: [id number] Name: ERIN DYSON Rep #: [id number] : 1955 65 From: Patricia Blackman MD PCP: Dr. 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 Excellent hemostasis was noted. All instruments removed from the vagina clear urine was noted at the end of the procedure and dr robison began her portion of the procedure. Grafts/Implants Used: see enriqueta note Multi Select Codes - Urinary/Genital Urinary/Genital CPT Codes: 14911 TVH+BS/O <250gr uterus 09/09/2018 <Electronically signed by Patricia Blackman MD> Date Patricia Blackman MD CC: Dr. Nan Robison MD; Dr. Dee Alvarez DO; Dr. Patricia Blackman MD Signed Dee Alvarez Start: 09-09-2020 End: 09-10-2020 History and Physical Exam Comments: See Note; NOTES: [facility] Medical Records Department [address] [place] [address] History and Physical 09/09/20 0645 MR#: [id number] Acct: [id number] Name: ERIN DYSON APOLLO Rep #: [id number] : 1955 65 From: Patricia Blackman MD PCP: Dr. 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 Cystocele plan [facility] bso combo case with enriqueta Salvador After [...] 12 Lead EKG Comments: See Note; NOTES: [facility] Cardiovascular Services [address] [place] [address] 12 Lead EKG 09/03/20719 MR#: [id number] Acct: [id number] Name: ERIN DYSON APOLLO Rep #: [id number] : 1955 65 From: Phillip Borrego MD Attending Dr: Dr. Patricia Blackman MD Status: PRE [facility] Ordering Dr: Orestes Arroyo MD Date: 09/03/20 Location: [facility] Sex: F C Admitted: Test Reason : PREOP Blood Pressure : / mmHG Vent. Rate : 057 BPM Atrial Rate : 057 BPM P-R Int : 166 ms QRS Dur : 082 ms QT Int : 412 ms P-R-T Axes : 042 049 033 degrees QTc Int : 401 ms Sinus bradycardia Otherwise normal ECG Confirmed by ELMO SEVERINO, PHILLIP ([id number]), staff editor LATASHA BRITTON ([id number]) on 09/04/2020 10:08:46 AM Referred By: Patricia Blackman Confirmed By:PHILLIP BORREGO MD 09/04/20 1008 Date Phillip Borrego MD CC: Dr. Orestes Arroyo MD; Dr. Dee Alvarez DO; Dr. 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 [place] [address] OFFICE VISIT Date of Service: 08/26/20 MR#: [id number] Acct: [id number] Name: ERIN DYSON Rep #: [id number] : 1955 Provider: Dr. 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 Cystocele plan [facility] bso combo case with enriqueta Salvador After [...] Care Visit Report Comments: See Note; NOTES: [facility] [address] [place] [address] [address] [place] [address] OFFICE VISIT Date of Service: 04/22/20 MR#: [id number] Acct: [id number] Name: ERIN DYSON Rep #: [id number] : 1955 Provider: Agustin BOWEN Age/Sex: 64/F Location: [facility] Status: Signed Intake Vital Signs 04/22/20 BMI [...] History (Updated 04/22/20 @ 13:49 by ANDRÉS yHatt) Smoking Status: Never smoker alcohol intake: current alcohol intake frequency: a few times a week Alcohol type: wine details: 2-3 glasses per week substance use type: does not use caffeine: Yes what type of physical activity do you participate in: walking, weight training frequency: 5-6 times per week seatbelt use: always do you feel safe at home: Yes additional social history: - Yijt-Ahhq-wjftmwdn 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 Dee Alvarez DO [facility] Study: Dexa Bone Density Study Date of Exam: 04/10/20 Exam# [id number] Ordering Dr: Dee Alvarez DO STUDY: DUAL ENERGY X-RAY ABSORPTIOMETRY / DXA REASON FOR EXAM: Female, 64 years old. Age of eli 50. Pat is 143.5 and 64.75 and [...] support , CC: Dr. Dee Alvarez DO Professional Nurse: Signed Dee Alvarez Work Phone: Start: 11-28-2019 End: 11-28-2019 Bladder Tonie Langford [facility] Comment on above: Enriqueta Start: 11-28-2019 End: 11-28-2019 Total hysterectomy Tonie Langford [facility] Comment on above: Enriqueta and Anastasia did together Start: 10-07-2016 End: 10-07-2016 Bilat Scrn Digital AND CAD Comments: See Note; NOTES: [facility] Imaging Services [address] [place] [address] Verdana 4d Bilat Scrn Digital AND CAD MR#: [id number] Acct: [id number] Name: ERIN DYSON Rep #: [id number] : 1955 F 61 From: Rafal Dos Santos MD PCP: Radha Cramer Status: REG CLI Study: Bilat Scrn Digital AND CAD Date of Exam: 10/07/16 Exam# [id number] Ordering Dr: Radha Cramer MAMMOGRAPHY - BILATERAL [...] no significant change since the prior study. HPBI/Bilat Scrn Digital AND CAD IMPRESSION: Stable bilateral screening mammogram. Yearly follow-up mammogram recommended. (A) ASSESSMENT CATEGORY: BIRADS Category 1: Negative. A letter regarding these results will be sent to the patient by the facility within 30 days. Approximately 10% of breast cancers are not detected by mammography. A normal mammogram should not delay biopsy of a clinically suspicious abnormality. [id number] Electronically Signed: Rafal Dos Santos MD at 13:25 EST Tel [phone], Service support [phone], CC: Radha Cramer Professional Nurse: Signed Radha Cramer Work Phone: Start: 07-29-2015 End: 07-29-2015 Bilat Scrn Digital AND CAD Comments: See Note; NOTES: [facility] Imaging Services [address] [place] [address] Breast Imaging Report MR#: [id number] Acct: [id number] Name: ERIN DYSON Rep #: [id number] : 1955 F 59 From: Rafal Dos Santos MD PCP: Rajat Norton DO Status: REG CLI Study: Bilat Scrn Digital AND CAD Date of Exam: 07/29/15 Exam# [id number] Ordering Dr: Rajat Norton DO MAMMOGRAPHY - BILATERAL SCREENING REASON FOR [...] Dos Santos MD at 14:34 EDT Tel [phone], Service support [phone], CC: Rajat Norton DO Professional Nurse: Signed Rajat Norton Work Phone: Start: 07-29-2015 End: 07-31-2015 Dexa Bone Density Study (HP) Comments: See Note; NOTES: [facility] Imaging Services [address] [place] [address] Bone Density Report MR#: [id number] Acct: [id number] Name: JEANNINE DYSONORES Rep #: [id number] : 1955 F 59 From: Rafal Dos Santos MD PCP: Rajat Norton DO Status: [facility] Study: Dexa Bone Density Study (HP) Date of Exam: 07/29/15 Exam# [id number] Ordering Dr: Rajat Norton DO STUDY: DUAL ENERGY X-RAY ABSORPTIOMETRY / [...] Dos Santos MD at 10:14 EDT Tel [phone], Service support [phone], CC: Rajat Norton DO Professional Nurse: Signed Rajat Norton Work Phone: Start: 04-01-2014 End: 04-12-2014 Bilat Scrn Digital & CAD Comments: See Note; NOTES: [facility] Imaging Services [address] [place] [address] Breast Imaging Report MR#: [id number] Acct: [id number] Name: ERIN DYSON Rep #: [id number] : 1955 F 58 From: Rafal Dos Santos MD PCP: Rajat Norton DO Status: REG CLI Exam# [id number] Ordering Dr: Rajat Norton DO MAMMOGRAPHY - BILATERAL SCREENING REASON FOR [...] Dos Santos MD at 13:32 EDT Tel [phone], Service support [phone], CC: Rajat Norton DO Professional Nurse: Signed Rajat Norton Work Phone: Start: 06-15-2011 Mammography Neurology Provider Start: 09-16-2009 Lipid 1996 panel - Serum or Plasma Ozzie Robertson Jr., MD Work Phone: Bunionectomy Tatiana Gravius Comment on above: Bilateral. Bunionectomy Tatiana Gravius Comment on above: Bilateral. Bunionectomy with osteotomy of first metatarsal Tatiana Gravius Comment on above: Bilateral. Bunionectomy with osteotomy of first metatarsal Disha Cross Comment on above: Bilateral. Bunionectomy with osteotomy of first metatarsal Disha Cross WOOL SACKER Comment on above: Bilateral. Bunionectomy with osteotomy of first metatarsal Tonie Manchak AVIATION 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 Comment on above: Bilateral. Bunionectomy with osteotomy of first metatarsal Tonie Manchak AVIATION 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 Comment on above: Bilateral. Bunionectomy with osteotomy of first metatarsal Tonie Manchak AVIATION 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 Comment on above: Bilateral. Bunionectomy with osteotomy of first metatarsal Tonie Manchak AVIATION 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 Comment on above: Bilateral. Bunionectomy with osteotomy of first metatarsal Kayela Middlesex AVIATION 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 Comment on above: Bilateral. Bunionectomy with osteotomy of first metatarsal Tonie Manchak AVIATION 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 Comment on above: Bilateral. Bunionectomy with osteotomy of first metatarsal Tonie Manchak AVIATION 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 Comment on above: Bilateral. 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 Tonie Manchak AVIATION 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 Plan of Treatment Date Care Activity Detail Author Start: 01-29-2035 Urine microalbumin profile DTaP,Tdap,Td Vaccine (3 - Td or Tdap) [facility] Start: 2029 RSV Vaccine (1 - 1-d ose 75+ series) RSV Vaccine (1 - 1-dose 75+ series) [facility] Start: 05-03-2025 End: 05-03-2025 Patient encounter procedure 05/03/2025 2:00 PM EDT Office Visit Neurology [address] [place], [place] [address] Ozzie Robertson Jr., MD [address] [place], [place] [id number] 6 mth f/u cognitive decline, marilee 11/02/24 Neurology Comment on above: 6 mth f/u cognitive decline, marilee 11/02/24 Start: 03-13-2025 MRI of joint of lowe r extremity Upper Ext Joint Only(Routine) [facility] Start: 02-06-2025 End: 02-06-2025 Patient encounter procedure 02/06/2025 11:30 AM EDT Office Visit Neurology [address] [place], [place] [id number] Danni Gurrola PA-C [address] [place], [place] [id number] review meds and discuss further treatment options. Neurology Comment on above: review meds and disc uss further treatment options. Start: 11-28-2024 Advance Directive Discussion Advance Directive Discussion [facility] Start: 11-02-2024 End: 11-02-2024 Patient encounter procedure 11/02/2024 3:20 PM EST Office Visit Neurology [address] [place], [place] [id number] Ozzie Robertson Jr., MD [address] [phone] 3 Month Follow up Neurology Comment on above: 3 Month Follow up Start: 07-29-2024 Covid-19 Vaccine ( season) Covid-19 Vaccine ( season) [facility] Start: 07-29-2024 Covid-19 Vaccine ( season) Covid-19 Vaccine () [facility] Start: 07-29-2024 Influenza vaccination C [facility] Start: 05-04-2024 End: 05-04-2024 Patient encounter procedure 05/04/2024 9:00 AM EDT Office Visit Neurology [address] [place], [place] [id number] Ozzie Robertson Jr., MD [address] [facility] [address] [place] [address] 3 Month Follow up Neurology Comment on above: 3 Month Follow up Start: 11-28-2023 Advance Directive Discussion Advance Directive Discussion [facility] Start: 2023 End: 10-19-2023 Cobalamin (Vitamin B12) [Mass/volume] in Serum or Plasma [facility] Work Phone: Comment on above: Expected: 2023 , Expires: 10/19/2023 Start: 2023 End: 10-19-2023 Thyrotropin [Units/volume] in Serum or Plasma [facility] Work Phone: Comment on above: Expected: 2023 , Expires: 10/19/2023 Start: 2023 End: 10-19-2023 Thyroxine (T4) free [Mass/volume] in Serum or Plasma [facility] Work Phone: Comment on above: Expected: 2023 , Expires: 10/19/2023 Start: 07-29-2023 Covid-19 Vaccine ( season) Covid-19 Vaccine () [facility] Start: 07-29-2023 Influenza vaccination C [facility] Start: 07-12-2023 Procedure Education Eprescribe d prescriptions (G8553) [facility] Work Phone: Start: 07-12-2023 Cyanocobalamin vitam in b-12 VITAMIN B12 AND FOLATES (71700) [facility] Work Phone: Start: 07-12-2023 Blood count complete auto&auto difrntl wbc CBC W/AUTO DIFF WBC (57168) [facility] Work Phone: Start: 07-12-2023 Comprehensive metabo lic panel METABOLIC PANEL, COMPREHENSIVE (35072) [facility] Work Phone: Start: 04-20-2023 Dual energy X-ray absorptiometry Dexa Bone Density Study [facility] Start: 01-11-2023 Procedure Education Eprescribe d prescriptions (G8553) [facility]; [facility] Work Phone: Start: 01-11-2023 Blood count complete auto&auto difrntl wbc CBC W/AUTO DIFF WBC (49925) [facility]; [facility] Work Phone: Start: 01-11-2023 Comprehensive metabo lic panel METABOLIC PANEL, COMPREHENSIVE (51989) [facility]; [facility] Work Phone: Start: 01-11-2023 Cyanocobalamin vitam in b-12 VITAMIN B12 AND FOLATES (88230) [facility]; [facility] Work Phone: Start: 11-28-2022 ADVANCE DIRECTIVE DISCUSSION ADVANCE DIRECTIVE DISCUSSION [facility] Start: 11-28-2022 DEPRESSION ASSESSMENT DEPRESSION ASS ESSMENT [facility] Start: 07-09-2022 Procedure Education Eprescribe d prescriptions (G8553) [facility]; [facility] Work Phone: Start: 07-09-2022 Comprehensive metabo lic panel METABOLIC PANEL, COMPREHENSIVE (09013) [facility]; [facility] Work Phone: Start: 07-09-2022 25 hydroxy includes fractions if performed Vitamin D Hydroxy (30743) [facility]; [facility] Work Phone: Start: 07-09-2022 Lipid panel LIPID PANEL (38488) [facility]; [facility] Work Phone: Start: 04-28-2022 Procedure Education Eprescribe d prescriptions (G8553) [facility]; [facility] Work Phone: Start: 12-29-2021 Urnls dip stick/tabl et reagent auto microscopy URINALYSIS, W/ MICRO (57479) [facility]; [facility] Work Phone: Start: 12-29-2021 Blood count complete auto&auto difrntl wbc CBC W/AUTO DIFF WBC (60367) [facility]; [facility] Work Phone: Start: 12-29-2021 Comprehensive metabo lic panel METABOLIC PANEL, COMPREHENSIVE (08834) [facility]; [facility] Work Phone: Start: 12-29-2021 Procedure Education Eprescribe d prescriptions (G8553) [facility]; [facility] Work Phone: Start: 12-29-2021 Comprehensive metabo lic panel METABOLIC PANEL, COMPREHENSIVE (90248) [facility]; [facility] Work Phone: Start: 12-29-2021 25 hydroxy includes fractions if performed Vitamin D Hydroxy (52962) [facility]; [facility] Work Phone: Start: 12-29-2021 Lipid panel LIPID PANEL (42639) [facility]; [facility] Work Phone: Start: 12-17-2021 25 hydroxy includes fractions if performed Vitamin D Hydroxy (19227) [facility]; [facility] Work Phone: Start: 12-17-2021 Comprehensive metabo lic panel METABOLIC PANEL, COMPREHENSIVE (51775) [facility]; [facility] Work Phone: Start: 12-17-2021 Lipid panel LIPID PANEL (53073) [facility]; [facility] Work Phone: Start: 08-24-2021 Urinalysis qual/semiquant except immunoassays URINALYSIS (49416) [facility]; [facility] Work Phone: Start: 08-24-2021 Culture bacterial quanttative colony count urine URINE ALONDRA CULTURE (PHU COL COUNT) (10441) [facility]; [facility] Work Phone: Start: 07-14-2021 Procedure Education Eprescribe d prescriptions (G8553) [facility]; [facility] Work Phone: Start: 07-14-2021 Hepatic function panel HEPATIC FUNCTION PANEL (81691) [facility]; [facility] Work Phone: Comment on above: next month Start: 06-12-2021 Comprehensive metabo lic panel Metabolic Panel, Comprehensive (41004) [facility]; [facility] Work Phone: Start: 06-09-2021 Procedure Education Eprescribe d prescriptions (G8553) [facility]; [facility] Work Phone: Start: 05-07-2021 Procedure Education Eprescribe d prescriptions (G8553) [facility]; [facility] Work Phone: Start: 12-08-2020 Assay of magnesium MAGNESIUM (09099) [facility]; [facility] Work Phone: Start: 12-08-2020 Magnesium [Mass/Vol] MAGNESIUM (8373 5) [facility]; [facility] Work Phone: Start: 12-08-2020 Blood count complete auto&auto difrntl wbc CBC W/AUTO DIFF WBC (73201) [facility]; [facility] Medicine Work Phone: Start: 12-08-2020 Assay of thyroid stimulating hormone tsh TSH ([id number]) [facility]; [facility] Work Phone: Start: 12-08-2020 TSH Qn TSH ([id number]) [facility]; [facility] Work Phone: Start: 12-08-2020 Comprehensive metabo lic panel METABOLIC PANEL, COMPREHENSIVE (55877) [facility]; [facility] Work [...] 25 hydroxy includes fractions if performed CALCIFEDIOL (12633) [facility] Work Phone: Start: 09-16-2019 Urine microalbumin profile [facility] Start: 2019 BONE DENSITY BONE DENSITY [facility] Start: 2019 Bone Density Screening Bone Density Screening [facility] Start: 2019 Pneumococcal Vaccine : 65+ (1 - PCV) Pneumococcal Vaccine: 65+ (1 - PCV) [facility] Start: 2019 Pneumococcal Vaccine : 65+ (1 of 1 - PCV) Pneumococcal Vaccine: 65+ (1 of 1 - PCV) [facility] Start: 2019 PNEUMOCOCCAL: 65+ (1 - PCV) PNEUMOCOCCAL: 65+ (1 - PCV) [facility] Start: 2019 Screening for osteoporosis Bone Density Screening [facility] Start: 08-12-2017 25 hydroxy includes fractions if performed CALCIFEDIOL (54611) [facility] Work Phone: Start: 04-09-2017 DIABETES SCREEN DIABETES SCREEN [facility] Start: 04-09-2017 Diabetes Screening Diabetes Screenin g [facility] Start: 08-10-2016 Provider Instruction s for Treatment [facility] Work Phone: Start: 08-07-2015 25 hydroxy includes fractions if performed Vitamin D Hydroxy (82802) [facility] Work Phone: Start: 07-22-2015 Procedure Education Eprescribe d prescriptions (G8553) [facility] Work Phone: Start: 07-22-2015 25 hydroxy includes fractions if performed Vitamin D Hydroxy (90476) [facility] Work Phone: Start: 07-22-2015 Urnls dip stick/tabl et reagent auto microscopy URINALYSIS, W/ MICRO (62126) [facility] Work Phone: Start: 07-22-2015 Blood count complete auto&auto difrntl wbc CBC W/AUTO DIFF WBC (09747) [facility] Work Phone: Start: 07-22-2015 Comprehensive metabo lic panel METABOLIC PANEL, COMPREHENSIVE (12275) [facility] Work Phone: Start: 07-22-2015 Lipid panel LIPID PANEL (26028) [facility] Medicine Work Phone: Start: 09-16-2014 Lipid 1996 panel - Serum or Plasma Lipid Screening [facility] Start: 09-16-2014 Lipid panel Lipid Screening [facility] Start: 09-16-2014 LIPID SCREEN LIPID SCREEN [facility] Start: 2014 RSV Vaccine (1 - 1-d ose 60+ series) RSV Vaccine (1 - 1-dose 60+ series) [facility] Start: 03-25-2014 Lipid panel LIPID PANEL (46143) [facility] Work Phone: Start: 03-25-2014 Urnls dip stick/tabl et reagent auto microscopy URINALYSIS, W/ MICRO ([id number]) [facility] Internal Medicine Work Phone: Start: 03-25-2014 Blood count manual c ell count each CBC WITH MANUAL DIFF (12446) [facility] Work Phone: Start: 03-25-2014 Comprehensive metabo lic panel METABOLIC PANEL, COMPREHENSIVE (60970) [facility] Work Phone: Start: 01-24-2013 Provider Instruction s for Treatment [facility] Work Phone: Start: 06-15-2012 Mammography [facility] Start: 06-15-2012 Screening for malign ant neoplasm of breast Mammogram Screening [facility] Start: 2004 Pneumococcal Vaccine : 50+ (1 of 1 - PCV) Pneumococcal Vaccine: 50+ (1 of 1 - PCV) [facility] Start: 2004 SHINGRIX VACCINE (1 of 2) SHINGRIX VACCINE (1 of 2) [facility] Start: 1999 COLOGUARD (FIT-DNA) COLOGUARD (FIT-D NA) [facility] Start: 1999 Colonoscopy COLONOSCOPY [facility] Start: 1999 COLORECTAL CANCER SCREENING COLORECTAL CANCER SCREENING [facility] Start: [address] COLONOGRAPHY [facility] Start: 1999 FECAL OCCULT BLOOD FECAL OCCULT BLOO D [facility] Start: 1999 Screening for malign ant neoplasm of colon [facility] Start: 1999 SIGMOIDOSCOPY SIGMOIDOSCOPY [facility] Start: 1972 HEPATITIS C SCREENING HEPATITIS C [facility] Start: 1972 Hepatitis C screening Hepatitis C [facility] Start: [birth year]16-1956 COVID-19 VACCINE (#1) COVID-19 VACCI NE (#1) [facility] Ecg routine ecg w/le ast 12 lds i&r only ECG INTERPRETATION & REPORT ONLY Cardiology Routine Dementia without behavioral disturbance, psychotic disturbance, mood disturbance, or anxiety, unspecified dementia severity, unspecified dementia type (HCC) At high risk for adverse medication event Ordered: 11/23/2024 [facility] Work Phone: Comment on above: Ordered: 11/23/2024 End: 09-17-2024 Mri brain brain stem w/o contrast material MRI BRAIN WO IVCON Radiology Routine Memory loss Cognitive decline 1 Occurrences starting 2023 until 09/17/2024 [facility] Work Phone: Comment on above: 1 [...] nternal Medicine; [facility] Work Phone: [facility]; [facility] Work Phone: [facility] Immunizations Immunization Date Immunization Notes Care Provider Fa [facility] 01-29-2025 tetanus toxoid, redu marnie diphtheria toxoid, and acellular pertussis vaccine, adsorbed Dr. Rajat Norton DO Work Phone: [facility] 10-02-2020 influenza, injectabl e, quadrivalent, preservative free Dr. Rajat Norton Work Phone: [facility] 10-02-2020 influenza, seasonal, injectable [facility] 10-02-2020 influenza virus vaccine, unspecified formulation Ozzie Robertson Jr., MD Work Phone: [facility] 09-24-2019 influenza, injectabl e, quadrivalent, preservative free Dr. Rajat Norton Work Phone: [facility] 09-24-2019 influenza, seasonal, injectable [facility] 09-11-2018 influenza, injectabl e, quadrivalent, preservative free Dr. Rajat Norton Work Phone: [facility] 09-11-2018 influenza, seasonal, injectable [facility] 08-24-2017 influenza, injectabl e, quadrivalent, preservative free Dr. Rajat Norton Work Phone: [facility] 08-24-2017 influenza, seasonal, injectable [facility] 08-26-2016 influenza, injectabl e, quadrivalent, preservative free Dr. aRjat Norton Work Phone: [facility] 08-26-2016 influenza, seasonal, injectable [facility] 09-25-2015 influenza, injectabl e, quadrivalent, preservative free Dr. Rajat Norton Work Phone: [facility] 09-25-2015 influenza, seasonal, injectable [facility] 09-16-2009 tetanus toxoid, redu marnie diphtheria toxoid, and acellular pertussis vaccine, adsorbed Neurology Provider [facility] Payers Date Payer Category Payer Self-pay [id number] 2022 Private Health Insurance [id number] 2022 Unknown [id number] 2021 Unknown [id number] 2020 Medicare [id number] 2020 Medicare [id number] 2014 Unknown [id number] 2005 Unknown [id number] 1954 Unknown [id number] 2.16.84 [id number] Unknown Unknown [id number] 2.16.8 [id number] Unknown [id number] 2.16.8 [id number] Unknown [id number] 2.16.8 [id number] Unknown [id number] 2.16.8 [id number] Unknown [id number] 2.16.8 [id number] Unknown [id number] 2.16.8 [id number] Unknown [id number] 2.16.8 [id number] Unknown [id number] 2.16.8 [id number] Unknown [id number] 2.16.8 [id number] Unknown [id number] 2.16.8 [id number] Unknown [id number] 2.16.8 [id number] Unknown [id number] 2.16.8 [id number] Unknown [id number] 2.16.8 [id number] Unknown [id number] 2.16.8 [id number] Social History Date Type Detail Facility Start: 07-14-2022 End: 2023 Alcohol Use Alcohol Use [facility] Work Phone: Comment on above: Occasional alcohol u se, Drinks wine 4-6 cups coffee qd 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, [facility]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 , Lives with spouse Start: 12-28-2022 End: 12-27-2023 Tobacco smoking status TNIS Unknown if ever smoked [facility] Start: 09-02-2020 Non-smoker [facility] Start: 1955 Sex Assigned At Female W [facility] Start: 06-15-2011 End: 06-06-2024 Tobacco smoking status TNIS Never smoked tobacco [facility] Start: 06-15-2011 Tobacco use and exposure Smokeless tobacco non-user [facility] Start: 07-14-2022 End: 02-12-2025 Alcohol intake Current drinker of alcohol (finding) [facility] Start: 07-14-2022 End: 2023 Tobacco use panel [facility] Start: 1955 Sex Assigned At Not on file C [facility] National Score (1-10 0), lower number is lower risk 99 [facility] Start: 03-19-2025 Sex Female (finding) [facility] Medical Equipment Procedure Code Equipment Code Equipment Origin al Text Equipment Identifier Dates Vaginal hysterectomy MESH, AXIS DERMIS FDA Start: 09-09-2020 Vaginal hysterectomy MESH, AXIS DERMIS FDA Start: 09-09-2020 Vaginal hysterectomy MESH, AXIS DERMIS FDA Start: 09-09-2020 Vaginal hysterectomy MESH, AXIS DERMIS FDA Start: 09-09-2020 Vaginal hysterectomy MESH, AXIS DERMIS FDA Start: 09-09-2020 Vaginal hysterectomy MESH, AXIS DERMIS FDA Start: 09-09-2020 Vaginal hysterectomy MESH, AXIS DERMIS FDA Start: 09-09-2020 Vaginal hysterectomy MESH, AXIS DERMIS FDA Start: 09-09-2020 Vaginal hysterectomy MESH, AXIS DERMIS FDA Start: 09-09-2020 Vaginal hysterectomy MESH, AXIS DERMIS FDA Start: 09-09-2020 Functional Status Date Assessment Result Facility 04-09-2014 Are you deaf, or do you have serious difficulty hearing No 04/09/2014 10:58 AM EDT Ryann Swartz MA [facility] 04-09-2014 Are you blind, or do you have serious difficulty seeing, even when wearing glasses No 04/09/2014 10:58 AM EDT Ryann Swartz MA [facility] 04-09-2014 Do you have serious difficulty walking or climbing stairs No 04/09/2014 10:58 AM EDT Ryann Swartz MA [facility] 04-09-2014 Do you have difficul ty dressing or bathing No 04/09/2014 10:58 AM EDT Ryann Swartz MA [facility] 04-09-2014 Because of a physica l, mental, or emotional condition, do you have difficulty doing errands alone such as visiting a physician's office or shopping No 04/09/2014 10:58 AM EDT Ryann Swartz MA [facility] Mental Status Date Assessment Result Facility 04-09-2014 Because of a physica l, mental, or emotional condition, do you have serious difficulty concentrating, remembering, or making decisions No 04/09/2014 10:58 AM EDT Ryann Swartz MA [facility] Clinical Notes 06-08-2023 to 02-12-2025 Patient Danni Cunningham PA-C - 02/12/2025 3:35 PM EDTBNohemy bass LPN - 02/12/2025 3:33 PM EDT Note Date & Type Note Facility 03-18-2025 Instructions Danni Gurrola PA-C - 02/12/2025 3:58 PM EDT Continue with memantine 5mg twice daily Follow up with Dr. Robertson as planned in April. documented in this encounter [facility] 02-12-2025 Note HNO ID: [id number] Author: DANNI GURROLA PA-C Service: ? Author Type: Physician Information Technology Coordinator Type: Progress Notes Filed: 02/12/2025 16:07 Note Text: [facility] for General Neurology Name: Erin Dyson Age: [age] year old Gender: female Primary Care Provider: Rajat Norton, DO Assessment/Plan: 02/12/2025 - General Neurology, Danni Gurrola PA-C ASSESSMENT ASSESSMENT/PLAN: 1. Dementia without behavioral disturbance, psychotic disturbance, mood disturbance, or anxiety, unspecified dementia severity, unspecified dementia type (HCC) - ICD9: 294.20, ICD10: F03.90 (primary diagnosis) 2. Cognitive decline - ICD9: 294.9, ICD10: R41.89 3. Memory loss - ICD9: 780.93, ICD10: R41.3 Patient reporting overall cognition is stable primary concern today is to discuss medications. Has been on Namenda 5 mg twice daily for over a year and has been tolerating it well until recently. She is concerned that it might be contributing to high blood pressures. However, when she was on it a year ago her blood pressures were normal. States that she did stop it for 2 weeks and felt her blood pressures returned to normal and then restarted it and her blood pressure was high today. Discussed that can contribute to blood pressure issues but as she has been on this medication for over a year and blood pressure is now more recently an issue, encouraged her to follow-up with primary care to look for other causes of this issue would like to continue the medication. I suggest taking a lot of salts and would like to try conservative therapy and remain on the medication at this time. Deferring any repeat MoCA today. Does have an a follow-up appointment with Dr. Robertson scheduled for April. Of note, states she had an EKG done at [facility] but is unsure how long ago. There was some initial desire to start Aricept as her sister was on this medication but no longer wants to do this. No other new concerns that would warrant additional workup at this time. Danni Gurrola PA-C Encounter Diagnosis ICD-10-CM 1. Dementia without behavioral disturbance, psychotic disturbance, mood disturbance, or anxiety, unspecified dementia severity, unspecified dementia type (HCC) F03.90 2. Cognitive decline R41.89 3. Memory loss R41.3 No follow-ups on file. Chart, labs,and relevant images reviewed. Chief Complaint:Patient presents with: Established Patient: C/o HBP d/t medication Chart Review: 11/02/[address] Robertson ASSESSMENT/PLAN: 1. Cognitive decline - ICD9: 294.9, ICD10: R41.89 (primary diagnosis) 2. Memory loss - ICD9: 780.93, ICD10: R41.3 Overall condition stable. MOCA not performed today, but subjective history suggests no decline in cognitive status since last visit. Reviewed MRI results with patient, with focus being hippocampi and temp lobe size. Given these findings and prior history, along with family history of neurodegenerative process, would continue to recommend Namenda. However, patient not wanting to increase dose from 5mg BID to 10mg BID at this time. Encouraged brain exercises, social interaction. No restrictions at this time. Reviewed with pt SE and ADRs. Discussed prognosis of degenerative processes. Will have patient follow up in 6 months or sooner prn. Ozzie Robertson MD HPI: Last seen on 11/02/[address] Robertson. Doing well, no AE with namenda. No repeat moca, would like to stay at 5mg bid. Last moca was 12/30/23 and was . Messaged in on 01/24/25 noting some concerns with BP. Noting she wanted to switch to aricept from namenda but then changed her mind. Patient comes in today to discuss medication changes. Notes originally she was interested in starting Aricept because her sister is doing well on this but no longer wants to switch. Does note that she has been having higher blood pressures and saw that Namenda can cause this or contribute. Notes that she stopped the Namenda for 2 weeks and felt her blood pressure went back down to normal. Restarted it again and her blood pressure was high today. However, has been on this medication for over a year, no issues with hypertension at that time until recently. Notes that she does take in a lot of salt and has other risk factors for hypertension as well. No other new symptoms or concerns today. 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 ascorbic acid, vitamin C, (VITAMIN C) 250 mg tablet Take 250 mg by mouth once daily. cholecalciferol, vitamin D3, (VITAMIN D-3) 10 mcg (400 unit) cap Take 400 Units by mouth (more content not included)... [facility] 02-12-2025 History of Present illness Narrative Images from the original note were not included. [facility] for General Neurology Name: Erin Dyson Age: [age] year old Gender: female Primary Care Provider: Rajat Norton DO Assessment/Plan: 02/12/2025 - General Neurology, Danni Gurrola PA-C ASSESSMENT ASSESSMENT/PLAN: 1. Dementia without behavioral disturbance, psychotic disturbance, mood disturbance, or anxiety, unspecified dementia severity, unspecified dementia type (HCC) - ICD9: 294.20, ICD10: F03.90 (primary diagnosis) 2. Cognitive decline - ICD9: 294.9, ICD10: R41.89 3. Memory loss - ICD9: 780.93, ICD10: R41.3 Patient reporting overall cognition is stable primary concern today is to discuss medications. Has been on Namenda 5 mg twice daily for over a year and has been tolerating it well until recently. She is concerned that it might be contributing to high blood pressures. However, when she was on it a year ago her blood pressures were normal. States that she did stop it for 2 weeks and felt her blood pressures returned to normal and then restarted it and her blood pressure was high today. Discussed that can contribute to blood pressure issues but as she has been on this medication for over a year and blood pressure is now more recently an issue, encouraged her to follow-up with primary care to look for other causes of this issue would like to continue the medication. I suggest taking a lot of salts and would like to try conservative therapy and remain on the medication at this time. Deferring any repeat MoCA today. Does have an a follow-up appointment with Dr. Robertson scheduled for April. Of note, states she had an EKG done at [facility] but is unsure how long ago. There was some initial desire to start Aricept as her sister was on this medication but no longer wants to do this. No other new concerns that would warrant additional workup at this time. Danni Gurrola PA-C Encounter Diagnosis ICD-10-CM 1. Dementia without behavioral disturbance, psychotic disturbance, mood disturbance, or anxiety, unspecified dementia severity, unspecified dementia type (HCC) F03.90 2. Cognitive decline R41.89 3. Memory loss R41.3 No follow-ups on file. Chart, labs,and relevant images reviewed. Chief Complaint:Patient presents with: Established Patient: C/o HBP d/t medication Chart Review: 11/02/[address] Robertson ASSESSMENT/PLAN: 1. Cognitive decline - ICD9: 294.9, ICD10: R41.89 (primary diagnosis) 2. Memory loss - ICD9: 780.93, ICD10: R41.3 Overall condition stable. MOCA not performed today, but subjective history suggests no decline in cognitive status since last visit. Reviewed MRI results with patient, with focus being hippocampi and temp lobe size. Given these findings and prior history, along with family history of neurodegenerative process, would continue to recommend Namenda. However, patient not wanting to increase dose from 5mg BID to 10mg BID at this time. Encouraged brain exercises, social interaction. No restrictions at this time. Reviewed with pt SE and ADRs. Discussed prognosis of degenerative processes. Will have patient follow up in 6 months or sooner prn. Ozzie Robertson MD HPI: Last seen on 11/02/[address] Robertson. Doing well, no AE with namenda. No repeat moca, would like to stay at 5mg bid. Last moca was 12/30/23 and was . Messaged in on 01/24/25 noting some concerns with BP. Noting she wanted to switch to aricept from namenda but then changed her mind. Patient comes in today to discuss medication changes. Notes originally she was interested in starting Aricept because her sister is doing well on this but no longer wants to switch. Does note that she has been having higher blood pressures and saw that Namenda can cause this or contribute. Notes that she stopped the Namenda for 2 weeks and felt her blood pressure went back down to normal. Restarted it again and her blood pressure was high today. However, has been on this medication for over a year, no issues with hypertension at that time until recently. Notes that she does take in a lot of salt and has other risk factors for hypertension as well. No other new symptoms or concerns today. 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 ALLERGIES No Known Allergies FAMILY HISTORY Problem Relation Age of Onset Breast Cancer Paternal Grandmother Hypertension Mother Cancer Father brain PAST SURGICAL HISTORY Procedure Laterality Date BX BREAST PERC VACUUM/ROTN 06-13-08 LEFT STEREO/negative LIG/TRNSXJ FLP TUBE ABDL/VAG APPR UNI/BI Tubal ligation PAST SURGICAL HISTORY OF bilateral bunionectomy PAST SURGICAL HISTORY OF LIPOSUCTION ON THIGH PAST SURGICAL HISTORY OF 06/04 left wrist surgery Social Hx: @Alcohol Use: Not on file Tobacco Use: Low Risk (02/12/2025) Patient History Smoking Tobacco Use: Never Smokeless Tobacco Use: Never Passive Exposure: Not on file 02/12/25 1536 BP: 146/91 Pulse: 62 Psych: Pressured speech MoCA: Patient deferred Neurologic Exam Cognitive and Language: Alert and answered questions appropriately. Language was fluent. Cranial Nerves: Extraocular movements were full with no diplopia or nystagmus. Facial strength was symmetric. Motor: Moves all 4 extremities Sensory: No evidence of neglect Coordination: Normal finger to nose and heel to dasilva testing bilaterally. Normal gait. Labs: No results found for: WBC, HGB, HCT, MCV, PLT No results found for: HBA1C No results found for: CHOL, HDL, LDL, TG Results for orders placed or performed in visit on 08/19/23 TSH BLD Result Value Ref Range TSH 1.930 0.270 - 4.200 mIU/L T4 FREE/FREE THYROX Result Value Ref Range Free T4 1.4 0.9 - 1.7 ng/dL VITAMIN B12 BLOOD Result Value Ref Range Vitamin B12 780 232 - 1,245 pg/mL Radiology: MRI Head/Brain - Last 2 Impressions MRI BRAIN WO IVCON Exam End: 10/04/2023 1:22 PM (Final result) Impression: IMPRESSION: * No evidence of an acute intracranial process or intracranial mass. * Mild generalized volume loss. * Chiari I malformation.... This note was dictated using [employer] speech recognition software and may contain some errors that were a result of the program not accurately transcribing what was dictated, despite efforts to make corrections. Note that unless urgent, test and MRI results will be discussed at next follow-up visit. PROMIS (Patient-Reported Outcomes Measurement Information System) is a set of person-centered measures that evaluates and monitors physical, social, and emotional health. It can be used with the general population and with individuals living with chronic conditions. PROMIS 10: PHYSICAL AND MENTAL HEALTH: Medical Decision Making: Medical Decision Making Level: 1 - N/A I spent a total of 20 minutes on the date of the service which included preparing to see the patient, [id number] patient care, completing clinical documentation, obtaining and/or reviewing separately obtained history, performing a medically appropriate examination, counseling and educating the patient/family/caregiver, and ordering medications, tests, or procedures. documented in this encounter [facility] 02-12-2025 Note HNO ID: [id number] Author: NOHEMY DUDLEY LPN Service: ? Author Type: LICENSED NURSE Type: Progress Notes Filed: 02/12/2025 16:07 Note Text: [facility] 01-29-2025 Evaluation note Diagnosis Onset Date Resolution Cat scratch of left hand acute January 29, 2025 11:38am [facility] Work Phone: [phone]) 970-930702-27-2025 Telephone encounter Note* Telephone Encounter - Nohemy Dudley LPN - 01/24/2025 4:12 PM EST Called patient, no answer. Left voicemail that there are no sooner appointment. Nohemy Dudley LPN January 24, 2025 4:17 PM [facility]02-27-2025 Miscellaneous Notes* Telephone Encounter - Nohemy Dudley LPN - 01/24/2025 4:12 PM EST Called patient, no answer. Left voicemail that there are no sooner appointment. Nohemy Dudley LPN January 24, 2025 4:17 PM * Telephone Encounter - Alysha Torres - 01/24/2025 3:16 PM EST Patient calling in trying to get a sooner appt with either Danni Gurrola or Dr. Robertson. Patient states she is having some trouble with her bp and it is concerning her. I added her to the waitlist and she is on the schedule currently with Danni on 02/06/25. She spoke to triage nurse Maureen prior tospeaking with me. Please review and advise. Alysha Torres January 24, 2025 3:18 PM [facility] Telephone encounter Note * Telephone Encounter - Alysha Torres - 01/24/2025 3:16 PM EST Patient calling in trying to get a sooner appt with either Danni Gurrola or Dr. Robertson. Patient states she is having some trouble with her bp and it is concerning her. I added her to the waitlist and she is on the schedule currently with Danni on 02/06/25. She spoke to triage nurse Maureen prior tospeaking with me. Please review and advise. Alysha Torres January 24, 2025 3:18 PM [facility]01-28-2025 Telephone encounter Note* Telephone Encounter - Geneva Mejia LPN - 12/25/2024 1:16 PM EST In regards to TE 11/23/24: Pt calls to ask why she needs a EKG before switching from Namenda 5 mg bid to Aricept. Pt is askingif there is an issue between Aricept and the heart. Pt is asking if dr feels Aricept is ok for her to switch to. Pt reports before she gets an EKG done she would like to know the reasoning behind needing to get one done. Geneva Mejia LPN [facility]01-28-2025 Miscellaneous Notes* Telephone Encounter - Geneva Mejia LPN - 12/25/2024 1:16 PM EST In regards to TE 11/23/24: Pt calls to ask why she needs a EKG before switching from Namenda 5 mg bid to Aricept. Pt is askingif there is an issue between Aricept and the heart. Pt is asking if dr feels Aricept is ok for her to switch to. Pt reports before she gets an EKG done she would like to know the reasoning behind needing to get one done. Geneva Mejia LPN documented in this encounter[facility] Telephone encounter Note * Telephone Encounter - Ozzie Robertson Jr., MD - 11/23/2024 6:27 PM EST Please schedule pt follow up with Mason BOWEN to review meds and discuss further treatment options. Will order ECG. Ozzie Robertson MD [facility]12-27-2024 Miscellaneous Notes* Telephone Encounter - Ozzie Robertson Jr., MD - 11/23/2024 6:27 PM EST Please schedule pt follow up with Mason BOWEN to review meds and discuss further treatment options. Will order ECG. Ozzie Robertson MD * Telephone Encounter - Nohemy Dudley LPN - 11/23/2024 3:27 PM EST Patient has not had an EKG done recently, would like to have order placed and patient will get EKG done through [facility]. Patient would also like to know the difference between medications listed below, pt was wondering why her sister would experience better results then she is. Please review and advise. Nohemy Dudley LPN November 23, 2024 3:28 PM * Telephone Encounter - Ozzie Robertson Jr., MD - 11/23/2024 2:48 PM EST Please see if pt has had recent ECG. If not, would like pt to have one to confirm that Aricept would be safe from cardiac standpoint. Ozzie Robertson MD * Telephone Encounter - Gricelda Reyez RN - 11/23/2024 8:30 AM EST Patient calls to request medication change to donepezil. Patient reports no current problem with Namenda but her sister also has cognitive issues and memoryloss and was started on donepezil and has huge success. Patient reports that Dr. Robertson told her if she wanted a medication change to call in. Currently taking Namenda 5 mg twice daily with no side effects or concerns. Requesting to discontinue Namenda to start Donepezil. Gricelda Reyez RN documented in this encounterOur [facility] Telephone encounter Note * Telephone Encounter - Nohemy Dudley LPN - 11/23/2024 3:27 PM EST Patient has not had an EKG done recently, would like to have order placed and patient will get EKG done through [facility]. Patient would also like to know the difference between medications listed below, pt was wondering why her sister would experience better results then she is. Please review and advise. Noehmy Dudley LPN November 23, 2024 3:28 PM [facility]12-27-2024 Telephone encounter Note* Telephone Encounter - Ozzie Robertson Jr., MD - 11/23/2024 2:48 PM EST Please see if pt has had recent ECG. If not, would like pt to have one to confirm that Aricept would be safe from cardiac standpoint. Ozzie Robertson MD [facility]12-27-2024 Telephone encounter Note* Telephone Encounter - Gricelda Reyez RN - 11/23/2024 8:30 AM EST Patient calls to request medication change to donepezil. Patient reports no current problem with Namenda but her sister also has cognitive issues and memoryloss and was started on donepezil and has huge success. Patient reports that Dr. Robertson told her if she wanted a medication change to call in. Currently taking Namenda 5 mg twice daily with no side effects or concerns. Requesting to discontinue Namenda to start Donepezil. Gricelda Reyez RN [facility]12-06-2024 NoteHNO ID: [id number] Author: OZZIE ROBERTSON JR, MD Service: ? Author Type: Physician Type: Progress Notes Filed: 11/02/2024 15:58 Note Text: ESTABLISHED PATIENT VISIT CHIEF COMPLAINT: Follow Up HISTORY OF PRESENT ILLNESS: Erin Dyson is a 69 year old female, with a PMH significant for and per last office visit of 05/04/24: 1. Cognitive decline - ICD9: 294.9, ICD10: R41.89 (primary diagnosis) 2. Memory loss - ICD9: 780.93, ICD10: R41.3 Patient with stable cognitive assessment since last evaluation. Patient reports still functioning at acceptable level at work and no limitations in daily activities. No driving issues. MOCA stable (slightly improved). D/w pt and she [...] Follow up sooner prn. Encouraged brain exercises. Patient feels doing pretty good. No issues at work. Feels medication is fine - no side effects. Driving ok. Not getting lost. Family has not commented on any issues, but daughter told her recently she would not know there was an issues with patient if she had not told her of dx and treatment. Otherwise no health complaints. REVIEW OF SYSTEMS GENERAL:No weight loss, malaise [...] patient's last visit have been reviewed. Requesting from PCP. MEDICATIONS: ascorbic acid, vitamin C, (VITAMIN C) 250 mg tablet Take 250 mg by mouth once daily. cholecalciferol, vitamin D3, (VITAMIN D-3) 10 mcg (400 unit) cap Take 400 Units by mouth once daily. ZINC ACETATE ORAL Take 1 tablet by mouth once daily. calcium carbonate (CALCIUM 500 ORAL) Take 1 tablet by mouth once daily. terbinafine HCl (LAMISIL) 250 mg tablet (Patient not taking: Reported on 11/02/2024) BIOTIN ORAL Take by mouth. (Patient not [...] membranes moist. NECK: ROM nml. Lungs: CTA bilaterally CV: RRR nl S1, S2 Extr: No [...] (5/5) bilaterally (throughout extremities x4). Coordination: FNF, TAD intact. No tremors. Sensation: Light touch intact throughout. No evidence of neglect. Gait: Stable with normal stride and arm swing. Assessment and Plan: ASSESSMENT/PLAN: 1. Cognitive decline - ICD9: 294.9, ICD10: R41.89 (primary diagnosis) 2. Memory loss - ICD9: 780.93, ICD10: R41.3 Overall condition stable. MOCA not performed today, but subjective history suggests no decline in cognitive status since last visit. Reviewed MRI results with patient, with focus being hippocampi and temp lobe size. Given these findings and prior history, along with family history of neurodegenerative process, would continue to recommend Namenda. However, patient not wanting to increase dose from 5mg BID to 10mg BID at this time. Encouraged brain exercises, social interaction. No restrictions at this time. Reviewed with pt SE and ADRs. Discussed pr (more content not included)...[facility]12-06-2024 History of Present illness Narrative* Ozzie Robertson Jr., MD - 11/02/2024 3:24 PM EST ESTABLISHED PATIENT VISIT CHIEF COMPLAINT: Follow Up HISTORY OF PRESENT ILLNESS: Erin Dyson is a 69 year old female, with a PMH significant forand per last office visit of 05/04/24: 1. Cognitive decline - ICD9: 294.9, ICD10: R41.89 (primary diagnosis) 2. Memory loss - ICD9: 780.93, ICD10: R41.3 Patient with stable cognitive assessment since last evaluation. Patient reports still functioning at acceptable level at work and no limitations in daily activities. No driving issues. MOCA stable (slightly improved). D/w pt and she would like to make no changes to therapies at this time. Reviewed MRI brain with pt again and she is understanding of hippocampi changes. For now, will continue Namenda 5mg BID and SE and ADRs d/w pt - again reviewed possible SE and ADRs/ Patient will follow up in 6months for reevaluation. If progression of symptoms will then increase Namenda to 10mg BID. Follow up sooner prn. Encouraged brain exercises. Patient feels doing pretty good. No issues at work. Feels medication is fine - no side effects. Driving ok. Not getting lost. Family has not commented on any issues, but daughter told her recently she would not know there was an issues with patient if she had not told her of dx and treatment. Otherwise no health complaints. REVIEW OF SYSTEMS GENERAL:No weight loss, malaise [...] patient's last visit have been reviewed. Requesting from PCP. MEDICATIONS: ascorbic acid, vitamin C, (VITAMIN C) 250 mg tablet Take 250 mg by mouth once daily. cholecalciferol, vitamin D3, (VITAMIN D-3) 10 mcg (400 unit) cap Take 400 Units by mouth once daily. ZINC ACETATE ORAL Take 1 tablet by mouth once daily. calcium carbonate (CALCIUM 500 ORAL) Take 1 tablet by mouth once daily. terbinafine HCl (LAMISIL) 250 mg tablet (Patient not taking: Reported on 11/02/2024) BIOTIN ORAL Take by mouth. (Patient not taking: Reported on 2023) HISTORIES PAST MEDICAL HISTORY Diagnosis Date NONE FAMILY HISTORY Problem Relation Age of Onset Breast Cancer Paternal Grandmother Hypertension Mother Cancer Father brain SOCIAL HISTORY Social History Tobacco Use Smoking status: Never Smokeless tobacco: Never Substance Use Topics Alcohol use: Yes Comment: occassional Drug use: No PHYSICAL EXAMINATION [facility] 03/27/2006 GENERAL EXAM: General appearance: NAD, pleasant. HEENT: NC/AT, nasal congestion absent, no oral lesions, membranes moist. NECK: ROM nml. Lungs: CTA bilaterally CV: RRR nl S1, S2 Extr: No [...] (5/5) bilaterally (throughout extremities x4). Coordination: FNF, TAD intact. No tremors. Sensation: Light touch intact throughout. No evidence of neglect. Gait: Stable with normal stride and arm swing. Assessment and Plan: ASSESSMENT/PLAN: 1. Cognitive decline - ICD9: 294.9, ICD10: R41.89 (primary diagnosis) 2. Memory loss - ICD9: 780.93, ICD10: R41.3 Overall condition stable. MOCA not performed today, but subjective history suggests no decline in cognitive status since last visit. Reviewed MRI results with patient, with focus being hippocampi andtemp lobe size. Given these findings and prior history, along with family history of neurodegenerative process, would continue to recommend Namenda. However, patient not wanting to increase dose [id number] BID to 10mg BID at this time. Encouraged brain exercises, social interaction. No restrictions at this time. Reviewed with pt SE and ADRs. Discussed prognosis of degenerative processes. Will have patient follow up in 6 months or sooner prn. Ozzie Robertson MD I spent a total of 22 minutes on the date of the service which included preparing to see the patient, [id number] patient care, completing clinical documentation, obtaining and/or reviewing separately obtained history, performing a medically appropriate examination, counseling and educating the pat ient/family/caregiver, ordering medications, tests, or procedures, and communicating results to thepatient/family/caregiver. Medical Decision Making: Problems: Low: Stable chronic illness Risk: Moderate: Drug management Medical Decision Making Level: 3 - Low * Nohemy Dudley LPN - 11/02/2024 3:18 PM EST documented in this encounterOur [facility] NoteHNO ID: [id number] Author: NOHEMY DUDLEY LPN Service: ? Author Type: LICENSED NURSE Type: Progress Notes Filed: 11/02/2024 15:58 Note Text:[facility]09-03-2024 Telephone encounter Note* Telephone Encounter - Jesika Luther RN - 07/31/2024 8:27 AM EDT Patient has appointment scheduled with provider on 11/02/2024. Jesika Luther RN [facility]09-03-2024 Miscellaneous Notes* Telephone Encounter - Jesika Luther RN - 07/31/2024 8:27 AM EDT Patient has appointment scheduled with provider on 11/02/2024. 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 Requested Prescriptions Pending Prescriptions Disp Refills memantine (NAMENDA) 5 mg tablet 180 tablet 0 Sig: Take 1 tablet by mouth two times a day. 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 Requested Prescriptions Pending Prescriptions Disp Refills memantine (NAMENDA) 5 mg tablet 180 tablet 0 Sig: Take 1 tablet by mouth two times a day. Pavithra Lucio LPN July 31, 2024 8:21 AM [facility]06-07-2024 NoteHNO ID: [id number] Author: OZZIE ROBERTSON JR, MD Service: ? Author Type: Physician Type: Progress Notes Filed: 05/06/2024 23:30 Note Text: See other note.[facility]06-07-2024 NoteHNO ID: [id number] Author: OZZIE ROBERTSON JR, MD Service: ? [...] expresses no interest in being seen in [place] [facility] and [...] that at this time, lost connection with [facility] due to system downtime. MOCA was completed. [...] symmetric. SCM and trapezius (more content not included)...[facility]06-07-2024 History of Present illness Narrative* Ozzie Robertson Jr., MD - 05/04/2024 8:27 AM EDT See other note. * Ozzie Robertson Jr., MD - 05/04/2024 8:27 AM EDT ESTABLISHED PATIENT VISIT CHIEF COMPLAINT: Follow Up HISTORY OF PRESENT ILLNESS: Erin Dyson is a 68 year old female, with a H significant forand per last office visit of 12/30/23: 1. [...] has had some positive response to Namenda despiteonly taking 5mg daily -- MOCA score improved today. Patient does not want additional workup, expresses no interest in being seen in [place] at the [place] [facility] and would not want infusion therapies if a candidate. For now will continue on Namenda since already started but will again try to increase to 5mg BID. SE and ADRs reviewed with pt. We also discussed other med options such as A ricept. Encouraged brain exercises. At this time, cognition is not having any significant impactingon daily life, but advised patient to be watchful for any impairments given scores on prior MOCA tests. Pt expresses understanding and agrees with plan. Pt will follow up in 3 months given med changeand reeval by MOCA. MRI brain report again [...] that at this time, lost connection with [facility] due to system downtime. MOCA was completed. [...] which included preparing to see the patient, [id number] patient care, completing clinical documentation, obtaining and/or reviewing separately obtained history, performing a medically appropriate examination, counseling and educating the pat ient/family/caregiver, ordering medications, tests, or procedures, and communicating results to thepatient/family/caregiver. documented in this encounterOur [facility] Telephone encounter Note * Telephone Encounter - Radha Fermin LPN - 04/09/2024 2:10 PM EDT Please see attached labs: Scan on 04/09/2024 9:20 AM by ProviderBianca PA-C: Miscellaneous Lab Radha Fermin LPN [facility]05-13-2024 Miscellaneous Notes* Telephone Encounter - Radha Fermin LPN - 04/09/2024 2:10 PM EDT Please see attached labs: Scan on 04/09/2024 9:20 AM by ProviderBianca PA-C: Miscellaneous Lab Radha Fermin LPN * Telephone Encounter - Radha Fermin LPN - 04/09/2024 8:19 AM EDT Fax request sent to PCP for lab results. Radha Fermin LPN * Telephone Encounter - Teresa Lucio LPN - 04/06/2024 4:19 PM EDT Patient has been identified by name and [...] has had some positive response to Namenda despiteonly taking 5mg daily -- MOCA score improved today. Patient does not want additional workup, expresses no interest in being seen in [place] at the [place] [facility] and would not want infusion therapies if a candidate. For now will continue on Namenda since already started but will again try to increase to 5mg BID. SE and ADRs reviewed with pt. We also discussed other med options such as A ricept. Encouraged brain exercises. At this time, cognition is not having any significant impactingon daily life, but advised patient to be watchful for any impairments given scores on prior MOCA tests. Pt expresses understanding and agrees with plan. Pt will follow up in 3 months given med changeand reeval by MOCA. Ozzie Robertson MD I * Telephone Encounter - Jesika Luther RN - 04/06/2024 4:10 PM EDT Patient has been identified by name and date of : Patient phones for refill(s): Requested Prescriptions Pending Prescriptions Disp Refills memantine (NAMENDA) 5 mg tablet 60 tablet 2 Sig: Take 1 tablet by mouth two times a day. Date of last office visit in primary care: 12/30/2023 Date of next office visit in primary care: 05/04/2024 Please advise. Thank you. Jesika Luther RN. documented in this encounterOur [facility] Telephone encounter Note * Telephone Encounter - Rahda Fermin LPN - 04/09/2024 8:19 AM EDT Fax request sent to PCP for lab results. Radha Fermin LPN [facility]05-10-2024 Telephone encounter Note* Telephone Encounter - Teresa Lucio LPN - 04/06/2024 4:19 PM EDT Patient has been identified by name and [...] has had some positive response to Namenda despiteonly taking 5mg daily -- MOCA score improved today. Patient does not want additional workup, expresses no interest in being seen in [place] [facility] and would not want infusion therapies if a candidate. For now will continue on Namenda since already started but will again try to increase to 5mg BID. SE and ADRs reviewed with pt. We also discussed other med options such as A ricept. Encouraged brain exercises. At this time, cognition is not having any significant impactingon daily life, but advised patient to be watchful for any impairments given scores on prior MOCA tests. Pt expresses understanding and agrees with plan. Pt will follow up in 3 months given med changeand reeval by MOCA. Ozzie Robertson MD I [facility]05-10-2024 Telephone encounter Note* Telephone Encounter - Jesika uLther RN - 04/06/2024 4:10 PM EDT Patient has been identified by name and date of : Patient phones for refill(s): Requested Prescriptions Pending Prescriptions Disp Refills memantine (NAMENDA) 5 mg tablet 60 tablet 2 Sig: Take 1 tablet by mouth two times a day. Date of last office visit in primary care: 12/30/2023 Date of next office visit in primary care: 05/04/2024 Please advise. Thank you. Jesika Luther RN. [facility]04-09-2024 Discharge summary Author Fermin Lynch [facility] March 06, 2024 10:17am Note Date/Time March 06, 2024 10:1 7am [facility] [address] [place] [address]. [address] [place] [address] / REHABILITATION SERVICES DISCHARGE SUMMARY MR#: [id number] Acct: [id number] Name: ERIN DYSON Rep #: [id number] : 1955 68 From: Fermin Barbosa Referring Dr.: Dr. Dakota Alba MD Status: REG RCR Insurance: [facility] [employer] MEDICARE A ONLY Patient Information Patient Information: ERIN DYSON was seen in my office for initial evaluation on 11/08/23. The following Plan of Care was established for this patient: POC Established Initial Frequency: 2x /Week Initial Duration: 4 Weeks Anticipated Interventions Patient/Client Instruction: Educate patient on: Condition, Plan of Care, Risk Factors and Benefits of Fitness Program For the Purpose of:: To improve decision making, To facilitate caregiver knowledge, To improve self management, To prevent re-injury and To improve ability to perform tasks related to life management Therapeutic Exercise to Include: Strength training, Power training, Postural training, Flexibilty training, Passive ROM, Active ROM and Scapular Strength/Stabilization For the Purpose of:: To decrease pain, To increase ROM, To improve nutrient delivery to tissue, To increase oxygenation perfusion, To improve muscle performance and motor function, To improve ability to perform ADL's, To decreasesoft tissue restriction and To increase flexibility/ROM Manual Therapy Techniques to Include: Mobilization, Functional dry needling and Soft tissue mobilization For the Purpose of:: To decrease pain, To decrease swelling/inflammation, To increase ROM and To improve nutrient delivery to tissue Last Seen Last Seen: This patient was last seen in our office 12/09/23. Pertinent comments regardingtheir Physical therapy will appear below: Pt. was seen in PT for her shoulder pain. At her last visit, patient wanted exercises to complete on her own. Pt. has not been back to PT is several months and will be DC from PT at this point in time. At this point I will be discontinuing this patient from physical therapy. I would be happy to see this patient again in the future if found appropriate by the physician. Thank you! Fermin Lynch, RAKANT Balance/Gait/Functional tests Balance/Special Test Scores Quick DASH Score: 25.0000 <Electronically signed by Fermin Lynch DPT> 03/06/24 1017 CC: Dr. Dakota Alba MD; Dr. Rajat Norton, DO ~ CLS Signed [facility] Work Phone: 1(456) 140-803703-12-2024 Miscellaneous Notes* Telephone Encounter - Pavithra Lucio LPN - 02/07/2024 3:07 PM EDT Pt reports she did not hear back from the office so she called her pcp and she sent her a prescription for Meclizine 12.5 mg. Pt picked the medication up but did not take because the symptoms had resolved. Pt feels she may of just got up to quick. She wanted this information relayed to the provider. Pavithra Lucio LPN * Telephone Encounter - Radha Fermin LPN - 02/07/2024 9:54 AM EDT TC to pt with no answer, left VM to return call. Radha Fermin LPN * Telephone Encounter - Radha Fermin LPN - 02/01/2024 3:14 PM EST TC to pt with no answer, left VM to return call. Radha Fermin LPN * Telephone Encounter - Radha Fermin LPN - 02/01/2024 9:51 AM EST TC to pt with no answer, left VM to return call. Please see below and advise. Radha Fermin LPN * Telephone Encounter - Ozzie Robertson Jr., MD - 02/01/2024 9:35 AM EST Please have pt hold Namenda. However, uncertain if current symptoms due to Namenda and if not resolving would recommend ER evaluation. Thank you, Ozzie Robertson MD * Telephone Encounter - Jesika Luther RN - 01/31/2024 10:59 AM EST Patient calls and states that she take namenda twice a day. Patient states that she took medicationaround 6 am this morning. Patient states that [...] 6 pm? Please review and advise, Jesika Luther RN documented in this encounterOur [facility] History of Present illness Narrative* Ozzie Robertson Jr., MD - 12/30/2023 9:00 AM EST ESTABLISHED PATIENT VISIT CHIEF COMPLAINT: Follow Up HISTORY OF PRESENT ILLNESS: Erin Dyson is a 68 year old female, with a PMH significant forand per last office visit of 08/19/23: 1. [...] on MOCA suggesting at least a mild cognitiveimpairment. Concerning is reported family history of dementia [...] and headache and appears dose was decreased to5mg daily. Pt feels since on the Namenda [...] disturbance, mood disorder and recent psychosocial stressors. HEMATOLOGIC/LYMPHATIC/IMMUNOLOGIC:Negative for prolonged bleeding, bruising easily or swollen [...] has had some positive response to Namenda despiteonly taking 5mg daily -- MOCA score improved today. Patient does not want additional workup, expresses no interest in being seen in [place] [facility] and would not want infusion therapies if a candidate. For now will continue on Namenda since already started but will again try to increase to 5mg BID. SE and ADRs reviewed with pt. We also discussed other med options such as A ricept. Encouraged brain exercises. At this time, cognition is not having any significant impactingon daily life, but advised patient to be watchful for any impairments given scores on prior MOCA tests. Pt expresses understanding and agrees with plan. Pt will follow up in 3 months given med changeand reeval by MOCA. Ozzie Robertson MD I spent a total of 30+ minutes on the date of the service which included preparing to see the patient, [id number] patient care, completing clinical documentation, obtaining and/or reviewing separately obtained history, performing a medically appropriate examination, counseling and educating the pa tient/family/caregiver, ordering medications, tests, or procedures, and communicating results to the patient/family/caregiver. * Teresa Lucio LPN - 12/30/2023 8:58 AM EST documented in this encounterOur [facility]12-18-[facility]23 Miscellaneous Notes* Telephone Encounter - Maureen Garrison - 11/14/2023 11:08 AM EST 1st attempt, left VM about canceled appointment with Danni Gurrola on 01/13. Need to reschedule. documented in this encounterOur Lady Of [facility]12-15-2023 Miscellaneous Notes* Telephone Encounter - Pavithra Lucio LPN - 11/11/2023 11:14 AM EST Spoke with pt and information listed below given. Pt verbalizes understanding. Pt will take (1) 5 mg in the am only. Pavithra Lucio LPN * Telephone Encounter - Radha Fermin LPN - 11/11/2023 10:48 AM EST TC to pt with no answer, left VM to return call. Please advise pt to take 5 mg namenda in morning only to see if help symptoms. Radha Fermin LPN * Telephone Encounter - Radha Fermin LPN - 11/11/2023 10:34 AM EST Do you want her to take 10 mg once daily or 5 mg once daily? Radha Fermin LPN * Telephone Encounter - Radha Fermin LPN - 11/11/2023 10:28 AM EST I would try taking Namenda in the morning only to see if she is able to fall asleep and if her headaches improve. Danni Gurrola PA-C * Telephone Encounter - Gricelda Reyez RN - 11/10/2023 2:32 PM EST Patient calls to report that since starting [...] advise, Gricelda Reyez RN documented in this encounterOur [facility] Of [facility]11-15-2023 Miscellaneous Notes* Telephone Encounter - Danni Gurrola PA-C - 10/12/2023 9:15 AM EST Sent Namenda to [facility] pharmacy. * Telephone Encounter - Geneva Mejia LPN - 10/11/2023 4:15 PM EST Pt reports she went to strip picker memantine 5 mg from [facility] and was advised that insurance requires a prior auth for this med. Geneva Mejia LPN documented in this encounterOur Lady Of [facility]11-08-2023 Miscellaneous Notes* Telephone Encounter - Radha Fermin LPN - 10/05/2023 4:04 PM EST TC to pt, scheduled October 112022 with Danni Gurrola. Results faxed to PCP per request. Radha Fermin LPN * Telephone Encounter - Ozzie Robertson Jr., MD - 10/05/2023 3:19 PM EST Please get pt sooner appt with PA or [employer]ARY[employer] to go over results. Thank you, Ozzie Robertson MD * Telephone Encounter - Saw Higuera LPN - 10/04/2023 2:02 PM EST Pt calling stating she had MRI done today for Dr Robertson. Pt is wanting to have copy of MRI results also sent to her pcp Dr Rajat Norton. Saw Higuera LPN documented in this encounterOur Lady Of [facility]11-07-2023 History of Present illness Narrative* Kerry Beltre RT(R) - 10/04/2023 1:00 PM EST Radiology Service Progress Note PATIENT NAME: Erin Dyson DATE OF SERVICE: October 04, 2023 TIME: 1:09 PM PATIENT IDENTITY VERIFICATION COMPLETED USING TWO (2) IDENTIFIERS: Name and Date of confirmedby patient verbally. FALL SCREENING: Has the patient [...] 04, 2023 1:09 PM documented in this encounterOur Lady Of [facility]09-22-2023 History of Present illness Narrative* Ozzie Robertson Jr., MD - 2023 11:00 AM EDT NEW PATIENT (CONSULT) HISTORY AND PHYSICAL EXAM PRIMARY CARE PHYSICIAN: Bailey Resendez MD REASON FOR CONSULT: Memory loss REFERRING PHYSICIAN: Self CHIEF COMPLAINT: My family states I am having memory problems. Consultation requested by Self for an opinion regarding chief complaint of Patient presents with: New Patient Evaluation and my final recommendations will be communicated back to the requesting physician by way of sharedmedical record or letter via US mail. HISTORY OF PRESENT ILLNESS: Erin Dyson is a 68 year old female, BMI 23.49 kg/m2 with a PMHsignificant for that noted below who presents with [...] at about 86 years (and possible history ofstroke). No issues driving. Never gets lost. No [...] disturbance, mood disorder and recent psychosocial stressors. HEMATOLOGIC/LYMPHATIC/IMMUNOLOGIC:Negative for prolonged bleeding, bruising easily or swollen nodes. ENDOCRINE: Negative for cold or heat intolerance, polyuria, polydipsia and goiter. The remainder of the ROS was reviewed and is negative. LAB/IMAGING: Reviewed and include: No results found for: WBC, RBC, HB, HCT, MCV, MCH, MCHC, RDWCV, PLT, MPV, GLUC, BUN, CREAT, NA, K, CHLOR, CO2, TPROT, ALB, CA, ALKPHOS, TBILI, AST, ALT, HITESH, ESRMM, SSA, SSB, CRYO, CRYOQ, RF, AHBSQ, HEPCABEIA URINALYSIS No results found for: PH, SPGR, UGLUC, UBILI, UKET, UHB, UPROT, UROBIL, UWBC, SSA -Obtaining from PCP MEDICATIONS: cholecalciferol, vitamin [...] papilledema, EOMI and without nystagmus, VFF to confrontation,facial sensation and strength are normal and symmetric, [...] on MOCA suggesting at least a mild cognitiveimpairment. Concerning is reported family history of dementia [...] which included preparing to see the patient, [id number] patient care, completing clinical documentation, obtaining and/or reviewing separately obtained history, performing a medically appropriate examination, counseling and educating the pa tient/family/caregiver, and ordering medications, tests, or procedures. * Radha Fermin LPN - 2023 10:27 AM EDT There is no data to display for this encounter documented in this encounterOur Lady Of [facility]08-08-2023 Discharge summary Author Karime Ariza [facility] July 05, 2023 7:55am Note Date/Time July 05, 2023 7:5 5am [facility] [address] [place] [address]. [address] [place] [address] / REHABILITATION SERVICES DISCHARGE SUMMARY MR#: [id number] Acct: [id number] Name: ERIN DYSON Rep #: [id number] : 1955 67 From: Karime Barbosa Referring Dr.: Yamilex Arnold DO Status: REG RCR Insurance: Apply [employer]anc[employer]/[facility] SELF PAY INSURANCE Discharge Summary D/C summary: [...] She did a 26 mile bike ride fromholding onto the handle bars she had increase [...] please feel free to call me at [phone]. Thank you for the referral of thispatient. Sincerely, GONZALO Farrell Balance/Gait/Functional tests Balance/Special Test Scores Quick DASH Score: 47.7250 <Electronically signed by Karime Ariza MPT> 07/05/23 3451 CC: Dr. Rajat Norton DO; Yamilex Arnold DO ~ Signed [facility] Work Phone: [phone]) 755-163107-12-2023 Miscellaneous Notes* Telephone Encounter - Charisse Ramirez RN - 06/08/2023 1:24 PM EDT Patient returned call, regarding note below. Pt reports she made the neurology appt because her and daughter tell her that they believe she has short term memory impairment and repeats things that she already told them, but she does notrecall telling them. She states otherwise she feels she is healthy; she works out, is active, playstennis and works 4 days a week. Charisse Ramirez RN * Telephone Encounter - Radha Fermin LPN - 06/08/2023 11:08 AM EDT Tc to pt with no answer. Left VM to return call to gather more information about her upcoming appointment for memory loss. Radha Fermin LPN * Telephone Encounter - Radha Fermin LPN - 06/08/2023 9:06 AM EDT Pt has upcoming appt on July [address] Robertson for memory loss and memory problems. No referral in chart or related information in chart. Radha Fermin LPN documented in this encounterJessup ClinicEvaluation noteNo assessment information availableWooParkview Health Work Phone: Evaluation note* Diagnosis Onset Date Resolution Status Hemorrhoid chronic Acute bronchitis acute [facility] Work Phone: Evaluation note* Diagnosis Onset Date Resolution Status Acute bronchitis acute [facility] Work Phone: Evaluation note* Diagnosis Memory loss- Primary Cognitive decline Unspecified persistent mental disorders due to conditions classified elsewhere [facility]* Diagnosis Memory loss Cognitive decline Unspecified persistent mental disorders due to conditions classified elsewhere documented in this encounter [facility]* Diagnosis Cognitive decline- Primary Unspecified persistent mental disorders due to conditions classified elsewhere Memory loss [facility]* Diagnosis Onset Date Resolution Status COVID-19 [facility] Work Phone: Evaluation note* Diagnosis Cognitive decline- Primary Unspecified persistent mental disorders due to conditions classified elsewhere Memory loss documented in [facility]* Diagnosis Dementia without behavioral disturbance, psychotic disturbance, mood disturbance, or anxiety, unspecified dementia severity, unspecified dementia type (HCC)- Primary At high risk for adverse medication event documented in this encounter [facility] note* Diagnosis Dementia without behavioral disturbance, psychotic disturbance, mood disturbance, or anxiety, unspecified dementia severity, unspecified dementia type (HCC)- Primary Cognitive decline Unspecified persistent mental disorders due to conditions classified elsewhere Memory loss [facility] [place]* Name Dates Details How to Access Health Informa tion Online using Patient Portal and [employer] Apps Indication:Non-smoker Start:08-Dec-2020 Instruction Type:Patient Education Patient [...] Informa tion Online using Patient Portal and [employer] Party Apps Indication:Non-smoker Start:08-Dec-2020 Instruction Type:Patient [...] Informa tion Online using Patient Portal and [employer] Apps Indication:Non-smoker Start:07-May-2021 Instruction Type:Patient Education Patient Instructions Indication:Non-smoker Start:07-May-2021 Instruction Type:Provider Instructions for Treatment How to Access Health Informa tion Online using Patient Portal and [employer] Apps Indication:Non-smoker Start:08-Dec-2020 Instruction Type:Patient Education Patient [...] Informa tion Online using Patient Portal and [employer] Party Apps Indication:Non-smoker Start:08-Dec-2020 Instruction Type:Patient [...] Informa tion Online using Patient Portal and [employer] Apps Indication:Non-smoker Start:14-Jul-2021 Instruction Type:Patient Education Patient Instructions Indication:Chest pain Start:09-Jun-2021 Instruction Type:Provider Instructions for Treatment How to Access Health Informa tion Online using Patient Portal and [employer] Apps Indication:Chest pain Start:09-Jun-2021 Instruction Type:Patient Education How to Access Health Informa tion Online using Patient Portal and [employer] Apps Indication:Non-smoker Start:08-Dec-2020 Instruction Type:Patient Education Patient [...] Informa tion Online using Patient Portal and [employer] Apps Indication:Non-smoker Start:14-Jul-2021 Instruction Type:Patient Education Patient Instructions Indication:Chest pain Start:09-Jun-2021 Instruction Type:Provider Instructions for Treatment How to Access Health Informa tion Online using Patient Portal and [employer] Apps Indication:Chest pain Start:09-Jun-2021 Instruction [...] Informa tion Online using Patient Portal and [employer] Apps Indication:Non-smoker Start:08-Dec-2020 Instruction Type:Patient [...] Closed Specialty Diagnoses / Procedures Referred By Mary barbosa Referred To Contact MR IMAGING Diagnoses Memory loss Cognitive decline Procedures MRI BRAIN WO IVCON MRI BRAIN BRAIN STEM W/O CONTRAST MATERIAL Ozzie Robertson Jr., MD [address] [address] [place] [address] Referral ID Status Reason Start Date Expiration Date V isits Requested Visits Authorized [id number] Closed Auto-Generate d Referral 09/15/2023 03/13/2024 1 1 [facility] for referral (narrative)No reason for referral information availableWHocking Valley Community Hospital Work Phone: Reason for visit Narrative* Diagnostic Procedure Only (Routine) - Closed Specialty Diagnoses / Procedures Referred By Mary barbosa Referred To Contact MR IMAGING Diagnoses Memory loss Cognitive decline Procedures MRI BRAIN WO IVCON MRI BRAIN BRAIN STEM W/O CONTRAST MATERIAL Ozzie Robertson Jr., MD [address] [facility] [address] [place] [address] [place] [address] Referral ID Status Reason Start Date Expiration Date V isits Requested Visits Authorized [id number] Closed Auto-Generate d Referral 09/15/2023 03/13/2024 1 1 [facility] Family History No Family History Records FoundUnknown [...] Sister 1 Comments:overweight, HTN- de mentia Status:Active Relationship Condition Age at Onset Recorded Date/T manan grandmother Malignant neoplasm of breast Unknown mother Hypertension Unknown Chronic obstructive pulmonary disease Unk nown Unknown Family Member Name Dates Details Father [...] Informa tion Online using Patient Portal and [employer] Apps Indication:Non-smoker Start:08-Dec-2020 Instruction Type:Patient Education Patient [...] Informa tion Online using Patient Portal and [employer] Apps Indication:Non-smoker Start:08-Dec-2020 Instruction Type:Patient Education Patient [...] Purpose Advance Directives No Advanced Directives Records Found Advance Directive Response Recorded Date/ Time Living Will Yes November 04 4:07pm Power of Weed Science Research Technician Yes November 04, 2022 4:07pm Advance Directive Response Recorded Date/ Time Living Will Yes November 04 5:07pm Power of Weed Science Research Technician Yes November 04, 2022 5:07pm Chief Complaint and Reason for Visit Chief Complaint BLOODFLOW 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 Persistent cough POST ELI Reason for Visit Hemorrhoid Acute bronchitis Chief 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 Persistent cough POST ELI TENNIS ELBLOW RX HERE Reason for Visit Acute bronchitis Chief Complaint POST ELI TENNIS ELBLOW RX HERE LEFT SHOULDER PAIN Chief Complaint POST ELI TENNIS ELBLOW RX HERE LEFT SHOULDER PAIN Strain of muscle(s) and tendon(s) of the rotator c 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,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 CONGESTION/BA Chest Congestion COVID +/CHEST CONGESTION/LIGHT HEADED cough Reason for Visit COVID-19 Chief Complaint STRAIN L RTC,IMPINGE MENT LT SHLD/RX HERE CHEST CONGESTION/BA Chest Congestion COVID +/CHEST CONGESTION/LIGHT HEADED cough Reason for Visit COVID-19 Chief Complaint STRAIN L RTC,IMPINGE MENT LT SHLD/RX HERE CHEST CONGESTION/BA Chest Congestion COVID +/CHEST CONGESTION/LIGHT HEADED cough 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 Reason for Visit COVID-19 Chief Complaint Admit Date LEFT HAND CAT SCRATCH January 29, 2025 11 :38am RIGHT SHOULDER PAIN March 13, 2025 12: 43pm Reason for Visit Admit Date Cat scratch of left hand January 29, 2025 11:38am Chief Complaint Admit Date LEFT HAND CAT SCRATCH January 29, 2025 11 :38am RIGHT SHOULDER PAIN March 13, 2025 12: 43pm FATIGUED/SINUS COMPLAINT April 16, 2025 6:35am Reason for Referral Specialty Diagnoses / Procedures Referred By Contac t Referred To Contact MR IMAGING Diagnoses Memory loss Cognitive decline Procedures MRI BRAIN WO IVCON MRI BRAIN BRAIN STEM W/O CONTRAST MATERIAL Ozzie Robertson Jr., MD [address] [facility] [address] [place] [address] [place] [address] Referral ID Status Reason Start Date Expiration Date Visits Requested Visits Authorized [id number] Pending Review Auto-Generat ed Referral 2023 09/17/2024 1 1 Additional Source Comments INFORMATION SOURCE (unrecogn ized section and content) DATE CREATED AUTHOR 01/11/2023 [facility] DATE CREATED AUTHOR AUTHOR'S ORGANIZ ATION 02/17/2025 [facility] DATE CREATED AUTHOR AUTHOR'S ORGANIZ ATION 04/17/2025 [facility] Care Teams (unrecognized sec tion and content) Team Status: Active Member Role Status Dates Dr. Kerry Francois DO Family Provider Active Dr. Rajat Norton , Primary Care Provider Active Team Status: Inactive Member Role Status Dates Dr. Rajat Norton DO Primary Care Provide r, Attending Provider, Referring Provider Active Team Status: Inactive Member Role Status Dates Dr. Rajat Norton DO Primary Care Provider, Referring P rovider Active Dr. Dickson Oro , DO Attending Provider Active Team Status: Inactive Member Role Status Dates Dr. Rajat Norton DO Primary Care Provider, Referring P rovider Active Agustin BOWEN PA Attending Provider Active Team Status: Active Member Role Status Dates Dr. Rajat Norton DO Primary Care Provider Active Dr. Orestes Kumari MD Attending Provider Active Team Status: Inactive Member Role Status Dates Dr. Rajat Norton DO Primary Care Provider Active Agustin Vinicio PA, PA Attending Provider, Referring Provi merna Active Principal Developer Relationship Specialty Start Date End Date Bailey Resendez MD (Fax) PCP - General Internal Medicine 07/14/11 Team Status: Inactive Member Role Status Dates Dr. Rajat Norton , Primary Care Provider Active Yamilex Arnold DO Attending Provider, Referring Pr ovider Active Team Status: Inactive Member Role Status Dates Dr. Rajat Norton , Primary Care Provider Active ANDRÉS Diamond Attending Provider, Referring Provide r Active Principal Developer Relationship Specialty Start Date End Date Bailey Resendez MD (Fax) PCP - General Internal Medicine 07/14/11 Principal Developer Relationship Specialty Start Date End Date FastRyana John DO [address] [facility] [address] [place] [address] (Fax) PCP - General Internal Medicine 10/04/23 Principal Developer Relationship Specialty Start Date End Date FastRyana A, DO [address] [facility] [address] [place] [address] (Fax) PCP - General Internal Medicine 10/04/23 Principal Developer Relationship Specialty Start Date End Date Ryan Nortona A DO [address] [facility] [address] [place] [address] (Fax) PCP - General Internal Medicine 10/04/23 Principal Developer Relationship Specialty Start Date End Date Fast Rajat A, DO [address] [facility] [address] [place] [address] (Fax) PCP - General Internal Medicine 10/04/23 Principal Developer Relationship Specialty Start Date End Date Fast Rajat A, DO [address] [facility] [address] [place] [address] (Fax) PCP - General Internal Medicine 10/04/23 Team Status: Inactive Member Role Status Dates Dr. Rajat Norton , DO Primary Care Provider, Referring P rovider Active Juan BOWEN, PA Attending Provider Active Team Status: Active Member Role Status Dates Dr. Rajat Norton , DO Primary Care Provider Active Dr. Joey Rose , DO Other Provider Active Dr. Dakota Alba MD Attending Provider, Referring P rovider Active Team Status: Inactive Member Role Status Dates Dr. Rajat Norton , DO Primary Care Provider Active Juan BWOEN, PA Attending Provider, Referring Pr ovider Active Team Status: Active Member Role Status Dates Dr. Rajat Norton , DO Primary Care Provider Active Health Risk Assessment Attending Provider, Referring P rovider Active Team Status: Inactive Member Role Status Dates Dr. Rajat Norton , DO Primary Care Provider Active Dr. Joey Rose , DO Other Provider Active Dr. Dakota Alba MD Attending Provider, Referring P rovider Active Principal Developer Relationship Specialty Start Date End Date Rajat Norton DO [address] [facility] [address] [place] [address] PCP - General Internal Medicine 10/04/23 Principal Developer Relationship Specialty Start Date End Date ErrolRajatDO [address] [facility] [address] [place] [address] PCP - General Internal Medicine 10/04/23 Principal Developer Relationship Specialty Start Date End Date Rajat Norton JohnDO [address] [facility] [address] [place] [address] PCP - General Internal Medicine 10/04/23 Principal Developer Relationship Specialty Start Date End Date Rajat Norton JohnDO [address] [facility] [address] [place] [address] PCP - General Internal Medicine 10/04/23 Team Status: Active Member Role Status Dates Dr. Rajat Norton DO Primary Care Provider Active Team Status: Inactive Member Role Status Dates Dr. Rajat Norton DO Primary Care Provider Active Start: January 17, 2025 End: January 17, 2025 Dr. Rajat Norton DO Attending Provider Active St art: January 17, 2025 End: January 17, 2025 Dr. Rajat Norton DO Referring Provider Active St art: January 17, 2025 End: January 17, 2025 Team Status: Inactive Member Role Status Dates Dr. Rajat Norton DO Primary Care Provider Active Start: January 29, 2025 End: January 29, 2025 Dr. Rajat Norton DO Referring Provider Active St art: January 29, 2025 End: January 29, 2025 Juan BOWEN PA Attending Provider Active Start: January 29, 2025 End: January 29, 2025 Team Status: Inactive Member Role Status Dates Dr. Rajat Norton DO Primary Care Provider Active Start: March 13, 2025 End: March 13, 2025 Dr. Rajat Norton DO Attending Provider Active St art: March 13, 2025 End: March 13, 2025 Dr. Rajat Norton DO Referring Provider Active St art: March 13, 2025 End: March 13, 2025 Team Status: Inactive Member Role Status Dates Dr. Rajat Norton DO Primary Care Provider Active Start: April 16, 2025 End: April 16, 2025 Dr. Rajat Norton DO Referring Provider Active St art: April 16, 2025 End: April 16, 2025 Juan BOWEN PA Attending Provider Active Start: April 16, 2025 End: April 16, 2025 Goals (unrecognized section and content) Goals may be documented in a n alternate sectionGoals may be documented in an alternate sectionGoals may be documented in an alternate sectionGoals may be documented in an alternate sectionGoals may be documented in an alternate sectionGoals may be documented in an alternate sectionGoals may be documented in an alternate sectionGoals may be documented in an alternate sectionGoals may be documented in an alternate sectionGoals may be documented in an alternate section Source Comments (unrecognize d section and content) In the event this informatio n is protected by the Federal Confidentiality of Alcohol and Drug Abuse Patient Records regulations: The Federal rules restrict any use of the information to criminally investigate or prosecute any alcohol or drug abuse patient.[facility] AndersonIn the event this information is protected by the Federal Confidentiality of Alcohol and Drug Abuse Patient Records regulations: The Federal rules restrict any use of the information to criminally investigate or prosecute any alcohol or drug abuse patient.[facility] AndersonIn the event this information is protected by the Federal Confidentiality of Alcohol and Drug Abuse Patient Records regulations: The Federal rules restrict any use of the information to criminally investigate or prosecute any alcohol or drug abuse patient.[facility] AndersonIn the event this information is protected by the Federal Confidentiality of Alcohol and Drug Abuse Patient Records regulations: The Federal rules restrict any use of the information to criminally investigate or prosecute any alcohol or drug abuse patient.[facility] AndersonIn the event this information is protected by the Federal Confidentiality of Alcohol and Drug Abuse Patient Records regulations: The Federal rules restrict any use of the information to criminally investigate or prosecute any alcohol or drug abuse patient.[facility] AndersonIn the event this information is protected by the Federal Confidentiality of Alcohol and Drug Abuse Patient Records regulations: The Federal rules restrict any use of the information to criminally investigate or prosecute any alcohol or drug abuse patient.[facility] AndersonIn the event this information is protected by the Federal Confidentiality of Alcohol and Drug Abuse Patient Records regulations: The Federal rules restrict any use of the information to criminally investigate or prosecute any alcohol or drug abuse patient.[facility] AndersonIn the event this information is protected by the Federal Confidentiality of Alcohol and Drug Abuse Patient Records regulations: The Federal rules restrict any use of the information to criminally investigate or prosecute any alcohol or drug abuse patient.[facility] AndersonIn the event this information is protected by the Federal Confidentiality of Alcohol and Drug Abuse Patient Records regulations: The Federal rules restrict any use of the information to criminally investigate or prosecute any alcohol or drug abuse patient.[facility] AndersonIn the event this information is protected by the Federal Confidentiality of Alcohol and Drug Abuse Patient Records regulations: The Federal rules restrict any use of the information to criminally investigate or prosecute any alcohol or drug abuse patient.[facility] AndersonIn the event this information is protected by the Federal Confidentiality of Alcohol and Drug Abuse Patient Records regulations: The Federal rules restrict any use of the information to criminally investigate or prosecute any alcohol or drug abuse patient.[facility] AndersonIn the event this information is protected by the Federal Confidentiality of Alcohol and Drug Abuse Patient Records regulations: The Federal rules restrict any use of the information to criminally investigate or prosecute any alcohol or drug abuse patient.[facility] AndersonIn the event this information is protected by the Federal Confidentiality of Alcohol and Drug Abuse Patient Records regulations: The Federal rules restrict any use of the information to criminally investigate or prosecute any alcohol or drug abuse patient.[facility] AndersonIn the event this information is protected by the Federal Confidentiality of Alcohol and Drug Abuse Patient Records regulations: The Federal rules restrict any use of the information to criminally investigate or prosecute any alcohol or drug abuse patient.[facility] AndersonIn the event this information is protected by the Federal Confidentiality of Alcohol and Drug Abuse Patient Records regulations: The Federal rules restrict any use of the information to criminally investigate or prosecute any alcohol or drug abuse patient.[facility] AndersonIn the event this information is protected by the Federal Confidentiality of Alcohol and Drug Abuse Patient Records regulations: The Federal rules restrict any use of the information to criminally investigate or prosecute any alcohol or drug abuse patient.[facility] AndersonIn the event this information is protected by the Federal Confidentiality of Alcohol and Drug Abuse Patient Records regulations: The Federal rules restrict any use of the information to criminally investigate or prosecute any alcohol or drug abuse patient.[facility] Reason for Visit (unrecogniz ed section and [...] Reason Onset Date Comments Refill Request 07/31/2024 Reason Comments Established Patient Cognitive decline, m erik loss Reason Comments Medication Question Reason Comments Patient Question Patient Update Reason Comments Established Patient C/o HBP d/t medicati on FOR RECORDS PERTAINING TO PATIENTS WHO ARE [...] BE BASED ON THE PRIMARY CLINICAL RECORDS. [facility]. provides no warranty or guarantee of the accuracy or completeness of information in this document.
[2025-05-02 06:25] LABS: Bacteria 0 SEEN /hpf (None Seen); Mucous, Urine 0 SEEN /hpf (<or=2+); Red Blood Cells-Urine 0 SEEN /hpf (0-5); White Blood Cells 0 SEEN /hpf (0-5)
[2025-05-02 08:23] LABS: Vitamin D,25 Hydroxy 55.2 ng/mL (30-100)
[2025-05-02 08:31] LABS: Color, Urine Yellow (Yellow); Glucose, Dipstick Normal (Normal); Ketone-Dipstick Negative (Negative); Leukocyte Esterase-Dipstick Negative /ul (Negative); Nitrite-Dipstick Negative (Negative); Occult Blood-Urine Negative /ul (Negative); Protein-Dipstick Negative (Negative); Urine Bilirubin Dipstick Negative (Negative); Urine Clarity Clear (Clear); Urine Urobilinogen Normal (Normal)
[2025-05-02 08:35] LABS: Microalbumin,Random Urine < 12.0 mg/L (NO RANGE EST.); Microalbumin:Creatinine Ratio UNABLE TO CALCULATE mg/g CRE
[2025-05-02 09:04] LABS: Squamous Epithelial Cells - UA 5-10 SEEN /hpf (5-10)
== END | disposition home or self-care (01) ==
LOC: LAB 06:05
PROVIDERS: PCP Internal Medicine; Referring Provider Internal Medicine; Visit Provider Internal Medicine
DX: E78.5 Hyperlipidemia, unspecified (principal); E55.9 Vitamin D deficiency, unspecified; R03.0 Elevated blood-pressure reading, without diagnosis of hypertension
CPT/HCPCS: 81001; 82043; 82306; 82570

== ENCOUNTER → 2025-05-28 | Outpatient (CLI) | payer OTHER, MEDICARE, SELFPAY ==
--- NOTE | 2025-05-28 12:06 | RAD_ITS ---
PROCEDURE: CHEST PA AND LATERAL 05/28/2025 REASON FOR EXAM: ABNORMAL LUNG SOUNDS TECHNIQUE: CHEST PA AND LATERAL COMPARISON: December 27, 2023 FINDINGS: Heart size and mediastinal configuration are within normal limits. There is no focal infiltrate or consolidation. There is no pneumothorax or effusion. Aortic calcifications are visible. There is no visible acute bony abnormality. RAD/Chest PA and Lateral IMPRESSION: No acute process is identified in the chest. Reading Location: [place]
--- NOTE | 2025-05-28 12:19 | ECHOD_ITS ---
Reason For Study Reason For Study: Systolic Ejection Murmur Procedure This was a 2D Doppler, Color Flow transthoracic echocardiogram. Exam performed in department. Left Ventricle Normal LV size. Left ventricular systolic function is normal. The left ventricular ejection fraction is 65 %. Stage 1 diastolic dysfunction. No regional wall motion abnormalities noted. Right Ventricle Normal RV size. Normal systolic function. Atria Normal left atrium. Normal right atrium. Mitral Valve Normal mitral valve. Tricuspid Valve Normal tricuspid valve. Mild tricuspid valve insufficiency. Pulmonary artery systolic pressure is 28 mmHg. Aortic Valve Trisinus/trileaflet aortic valve. Pulmonic Valve Normal pulmonic valve. Great Vessels Normal aortic root. The pulmonary artery is normal size. Inferior vena cava collapse with respiration. Pericardium/Pleural No pericardial effusion. MMode/2D Measurements & Calculations LVIDd: 4.2 cm IVSd: 0.75 cm Ao root diam: 2.9 cm LVIDs: 2.9 cm LVPWd: 0.77 cm RVDd: 3.5 cm FS: 30.5 % LAV(MOD-bp): 23.2 ml LVAd ap4: 23.1 cm2 SV(MOD-sp4): 41.5 ml LAV(MOD-bp) Indexed: 13.9 ml/m2 LVLd ap4: 6.9 cm SI(MOD-sp4): 24.8 ml/m2 LAV(MOD-sp2): 22.4 ml EDV(MOD-sp4): 63.9 ml LAV(MOD-sp4): 23.2 ml EDV(sp4-el): 65.5 ml LVAs ap4: 12.4 cm2 LVLs ap4: 5.7 cm ESV(MOD-sp4): 22.4 ml ESV(sp4-el): 22.9 ml EF(MOD-sp4): 64.9 % EF(sp4-el): 65.1 % SV(sp4-el): 42.6 ml LA A4 area: 11.8 cm2 LA dimension(2D): 3.9 cm RA A4 area: 17.3 cm2 TAPSE: 2.4 cm Time Measurements MV dec time: 0.28 sec Doppler Measurements & Calculations MV E max fernando: 41.9 cm/sec Lat Peak E' Fernando: 7.6 cm/sec Med Peak E' Fernando: 6.3 cm/sec MV A max fernando: 57.8 cm/sec E/E' lat: 5.5 E/E' med: 6.6 MV E/A: 0.73 MV P1/2t max fernando: 42.7 cm/sec Ao V2 max: 112.1 cm/sec LV V1 max: 100.2 cm/sec MV P1/2t: 83.3 msec Ao max P.0 mmHg LV V1 max P.0 mmHg Ao V2 mean: 75.5 cm/sec LV V1 mean P.0 mmHg MV dec slope: 150.0 cm/sec2 Ao mean P.5 mmHg LV V1 mean: 65.7 cm/sec MVA(P1/2t): 2.6 cm2 Ao V2 VTI: 21.1 cm LV V1 VTI: 19.8 cm AV (velocity ratio): 0.94 PA V2 max: 92.4 cm/sec PI end-d fernando: 113.6 cm/sec TR max fernando: 247.9 cm/sec TR max P.6 mmHg ECHO/Echo Complete Interpretation Summary Normal LV size. Left ventricular systolic function is normal. The left ventricular ejection fraction is 65 %. Stage 1 diastolic dysfunction. Mild tricuspid valve insufficiency. Structurally normal valves. Ordering Physician: Angie Norton Referring Physician: Angie Norton Performed By: Kaya Dale RVT, RDCS and Student
== END | disposition home or self-care (01) ==
PROVIDERS: PCP Internal Medicine; Referring Provider Internal Medicine; Visit Provider Internal Medicine
DX: R01.1 Cardiac murmur, unspecified (principal); R09.89 Other specified symptoms and signs involving the circulatory and respiratory systems
CPT/HCPCS: 71046; 93306

== ENCOUNTER → 2025-06-04 | Outpatient (CLI) | payer OTHER, MEDICARE, SELFPAY ==
--- NOTE | 2025-06-04 12:52 | BI_ITS ---
EXAM: SCRN MAMM (CAD)W/ARTI BILAT DATE: 06/04/2025 CLINICAL HISTORY: F, Age 69 y/o , SCREENING FOR BREAST CANCER Grandmother with breast cancer. History of prior left stereotactic breast biopsy. TECHNIQUE: SCRN MAMM (CAD)W/ARTI BILAT COMPARISON: Prior exam(s) dated April 06, 2022.. FINDINGS: TISSUE DENSITY: The breasts are extremely dense, which lowers the sensitivity of mammography. Bilateral Breast Mammographic Findings: No significant masses, calcifications or other abnormalities are identified. A tissue clip marker is seen in the deep upper lateral aspect of the left breast. No suspicious masses, areas of developing architectural distortion, or suspicious calcifications. There has been no significant interval change. BI/SCRN MAMM (CAD)W/ARTI BILAT IMPRESSION: Stable examination. OVERALL FINAL ASSESSMENT BI-RADS 2: BENIGN RECOMMEND ANNUAL MAMMOGRAPHIC SCREENING. RECOMMENDATION: Routine annual follow-up in 1 Year A letter with findings and recommendations will be mailed to the patient. Reading Location: [place] [id number]
--- NOTE | 2025-06-04 13:18 | BD_ITS ---
PROCEDURE: DEXA BONE DENSITY STUDY 06/04/2025 REASON FOR EXAM: F, age 69 y/o . Postmenopausal. TECHNIQUE: DEXA BONE DENSITY STUDY COMPARISON: Prior study dated April 20, 2023. FINDINGS: BMD and T-SCORES Lumbar spine: 0.961 g/cm2, T-score -0.8 Levels: L1 through L4 Change from prior: Loss of 2.8%. Left femoral neck: 0.763 g/cm2, T-score -0.8 Femoral neck comparison data not recommended for monitoring change. Left total hip: 0.885 g/cm2, T-score -0.5 Change from prior: Loss of 5.8%. Right femoral neck: 0.771 g/cm2, T-score -0.7 Femoral neck comparison data not recommended for monitoring change. Right total hip: 0.876 g/cm2, T-score -0.5 Change from prior: Improvement by 0.1%. The World Health Organization has defined the following categories based on bone density: Normal bone density: T-score equal to or greater than -1.0 Osteopenia: T-score between -1.0 and -2.5 Osteoporosis: T-score equal to or less than -2.5 The patient does meet the pharmacological treatment recommendations for prevention of osteoporosis. BD/Dexa Bone Density Study IMPRESSION: NORMAL T-SCORES. Recommend follow-up as clinically warranted. Reading Location: [place] [id number]
== END | disposition home or self-care (01) ==
LOC: OPBI 12:50
PROVIDERS: PCP Internal Medicine; Referring Provider Internal Medicine; Visit Provider Internal Medicine
DX: Z12.31 Encounter for screening mammogram for malignant neoplasm of breast (principal); Z78.0 Asymptomatic menopausal state; Z80.3 Family history of malignant neoplasm of breast
CPT/HCPCS: 77063; 77067; 77080

== ENCOUNTER → 2025-07-05 | Outpatient (CLI) | payer OTHER, MEDICARE, SELFPAY ==
--- OUTSIDE RECORDS SUMMARY | 2025-07-05 06:35 | XMS RPT_ITS | CCD ---
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 Recommend follow-up as clinically warranted. Reading Location: [place] [address] CC: Dr. Rajat Cummins DO Potato Inspector: Signed Normal [facility] SCRN MAMM (CAD)W/ARTI BILATo n 06-04-2025 SCRN MAMM (CAD)W/ARTI BILAT [facility] Imaging Services [address] [place] [address] [phone] SCRN MAMM (CAD)W/ARTI BILAT MR#: [id number] Acct: [id number] Name: ERIN DYSON APOLLO Rep #: [id number] : 1955 F 69 From: Rafal rosas MD PCP: Dr. Rajat Cummins DO Status: [facility] Study: SCRN MAMM (CAD)W/ARTI BILAT Date of Exam: 07/22 Exam# [id number] Ordering Dr: Rajat Cummins DO EXAM: SCRN MAMM (CAD)W/ARTI BILAT DATE: 06/04/2025 CLINICAL HISTORY: F, Age 69 y/o , SCREENING FOR BREAST CANCER Grandmother with breast cancer. History of prior left stereotactic breast biopsy. TECHNIQUE: SCRN MAMM (CAD)W/ARTI BILAT COMPARISON: Prior exam(s) dated April 06, 2022.. FINDINGS: TISSUE DENSITY: The breasts are extremely dense, which lowers the sensitivity of mammography. Bilateral Breast Mammographic Findings: No significant masses, calcifications or other abnormalities are identified. A tissue clip marker is seen in the deep upper lateral aspect of the left breast. No suspicious masses, areas of developing architectural distortion, or suspicious calcifications. There has been no significant interval change. BI/SCRN MAMM (CAD)W/ARTI BILAT IMPRESSION: Stable examination. OVERALL FINAL ASSESSMENT BI-RADS 2: BENIGN RECOMMEND ANNUAL MAMMOGRAPHIC SCREENING. RECOMMENDATION: Routine annual follow-up in 1 Year A letter with findings and recommendations will be mailed to the patient. Reading Location: [place] [address] CC: Dr. Rajat Cummins DO Potato Inspector: Signed Normal [facility] Office Visit Reporton 2024 Office Visit Report [facility] [address] [place] [address] OFFICE VISIT Date of Service: 05/20/25 MR#: [id number] Acct: [id number] Patient: ERIN DYSON APOLLO Rep #: [id number] : 1955 Provider: ANDRÉS Hernandez Age/Sex: 69/F Location: [facility] Status: Signed Intake Vital Signs 05/20/25 06:05 Height 5 ft 5 in BP 110/60 Position Sitting Respiration 16 Pulse 66 Temp 98.1 F Temp Source Oral Pulse Oximetry (%) 96 Oxygen Delivery Method room air 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 COVID/ [facility] Chief Complaint: left hand cat scratch Allergies No Known Allergies Allergy (Verified 05/20/25 06:18) Have you fallen in the past year?: No Office Procedures [facility] Billing Sheet Covid Covid Swab-Rapid: Yes Results POC CEPH COV,FluAB,RSV PCR CEPHEID COVID PCR Not DETECTED Last Edit by Bernice Marmolejo MA on 05/20/25 07:03 CEPHEID FLU AB PCR NOT DETECTED FLU A B Last Edit by Bernice Marmolejo MA on 05/20/25 07:03 CEPHEID RSV PCR NOT DETECTED Last Edit by Bernice Marmolejo MA on 05/20/25 07:03 Clinical Quality Measures Falls Risk Screening/Assistive Devices Have you fallen in the past year?: No 06/04/25 1728 Date Juan Miller PA PA Cosigner Signature: Date (if applicable) CC: Normal [facility] Chest PA and Lateralon 05-28 Chest PA and Lateral [facility] Imaging Services [address] [place] [address] [id number] Chest PA and Lateral MR#: [id number] Acct: [id number] Name: ERIN DYSON APOLLO Rep #: [id number] : 1955 F 69 From: Dani Johnston MD PCP: Dr. Rajat Cummins DO Status: REG CLI Study: Chest PA and Lateral Date of Exam: 05/28/25 Exam# [id number] Ordering Dr: Rajat Cummins DO PROCEDURE: CHEST PA AND LATERAL 05/28/2025 REASON FOR EXAM: ABNORMAL LUNG SOUNDS TECHNIQUE: CHEST PA AND LATERAL COMPARISON: December 27, 2023 FINDINGS: Heart size and mediastinal configuration are within normal limits. There is no focal infiltrate or consolidation. There is no pneumothorax or effusion. Aortic calcifications are visible. There is no visible acute bony abnormality. RAD/Chest PA and Lateral IMPRESSION: No acute process is identified in the chest. Reading Location: [place] CC: Dr. Rajat Cummins DO Potato Inspector: Signed Normal [facility] Echo Completeon 05-28-2025 Echo Complete [facility] Cardiovascular Services [address] [place] [address] [place] [address] Echo Complete 05/28/25 1201 MR#: [id number] Acct: [id number] Name: ERIN DYSON Rep #: [id number] : 1955 69 From: Phillip Borrego MD Attending Dr: Dr. Rajat Cummins, DO Status: REG CL I Ordering Dr: Rajat Cummins DO Date: 05/28/25 Location: [facility] Sex: F C Admitted: Reason For Study Reason For Study: Systolic Ejection Murmur Procedure This was a 2D Doppler, Color Flow transthoracic echocardiogram. Exam performed in department. Left Ventricle Normal LV size. Left ventricular systolic function is normal. The left ventricular ejection fraction is 65 %. Stage 1 diastolic dysfunction. No regional wall motion abnormalities noted. Right Ventricle Normal RV size. Normal systolic function. Atria Normal left atrium. Normal right atrium. Mitral Valve Normal mitral valve. Tricuspid Valve Normal tricuspid valve. Mild tricuspid valve insufficiency. Pulmonary artery systolic pressure is 28 mmHg. Aortic Valve Trisinus/trileaflet aortic valve. Pulmonic Valve Normal pulmonic valve. Great Vessels Normal aortic root. The pulmonary artery is normal size. Inferior vena cava collapse with respiration. Pericardium/Pleural No pericardial effusion. MMode/2D Measurements Calculations LVIDd: 4.2 cm IVSd: 0.75 cm Ao root diam: 2.9 cm LVIDs: 2.9 cm LVPWd: 0.77 cm RVDd: 3.5 cm FS: 30.5 % LAV(MOD-bp): 23.2 ml LVAd ap4: 23.1 cm2 SV(MOD-sp4): 41.5 ml LAV(MOD-bp) Indexed: 13.9 ml/m2 LVLd ap4: 6.9 cm SI(MOD-sp4): 24.8 ml/m2 LAV(MOD-sp2): 22.4 ml EDV(MOD-sp4): 63.9 ml LAV(MOD-sp4): 23.2 ml EDV(sp4-el): 65.5 ml LVAs ap4: 12.4 cm2 LVLs ap4: 5.7 cm ESV(MOD-sp4): 22.4 ml ESV(sp4-el): 22.9 ml EF(MOD-sp4): 64.9 % EF(sp4-el): 65.1 % SV(sp4-el): 42.6 ml LA A4 area: 11.8 cm2 LA dimension(2D): 3.9 cm RA A4 area: 17.3 cm2 TAPSE: 2.4 cm Time Measurements MV dec time: 0.28 sec Doppler Measurements Calculations MV E max ning: 41.9 cm/sec Lat Peak E' Ning: 7.6 cm/sec Med Peak E' Ning: 6.3 cm/sec MV A max ning: 57.8 cm/sec E/E' lat: 5.5 E/E' med: 6.6 MV E/A: 0.73 MV P1/2t max ning: 42.7 cm/sec Ao V2 max: 112.1 cm/sec LV V1 max: 100.2 cm/sec MV P1/2t: 83.3 msec Ao max P.0 mmHg LV V1 max P.0 mmHg Ao V2 mean: 75.5 cm/sec LV V1 mean P.0 mmHg MV dec slope: 150.0 cm/sec2 Ao mean P.5 mmHg LV V1 mean: 65.7 cm/sec MVA(P1/2t): 2.6 cm2 Ao V2 VTI: 21.1 cm LV V1 VTI: 19.8 cm AV (velocity ratio): 0.94 PA V2 max: 92.4 cm/sec PI end-d ning: 113.6 cm/sec TR max ning: 247.9 cm/sec TR max P.6 mmHg ECHO/Echo Complete Interpretation Summary Normal LV size. Left ventricular systolic function is normal. The left ventricular ejection fraction is 65 %. Stage 1 diastolic dysfunction. Mild tricuspid valve insufficiency. Structurally normal valves. Ordering Physician: Rajat Cummins Referring Physician: Rajat Cummins Performed By: Kaya Dale RVT, RDCS and Student 05/28/25 1617 Date Phillip Borrego MD CC: Dr. Rajat Cummins DO Date Dictated: 05/28/25 1201 Date Transcribed: 05/28/251616 Potato Inspector: Signed Normal [facility] Echocardiogram study reportO rdered By: Phillip Borrego on 05-28-[address] [facility] Cardiovascular Services [address] [place] [address] Echo Complete 05/28/25 1201 MR#: [id number] Acct: [id number] Name: ERIN DYSON APOLLO Rep #:[id number] : 1955 69 From: Phillip Daniels Attending Dr: Dr. Rajat Cummins DO atus: REG CLI Ordering Dr: Rajat Cummins DO Date: 12/22 Location: [facility] Sex: F C Admitted: Reason For Study Reason For Study: Systolic Ejection Murmur Procedure This was a 2D Doppler, Color Flow transthoracic echocardiogram. Exam performed in department. Left Ventricle Normal LV size. Left ventricular systolic function is normal. The left ventricular ejection fraction is 65 %. Stage 1 diastolic dysfunction. No regional wall motion abnormalities noted. Right Ventricle Normal RV size. Normal systolic function. Atria Normal left atrium. Normal right atrium. Mitral Valve Normal mitral valve. Tricuspid Valve Normal tricuspid valve. Mild tricuspid valve insufficiency. Pulmonary artery systolic pressure is 28 mmHg. Aortic Valve Trisinus/trileaflet aortic valve. Pulmonic Valve Normal pulmonic valve. Great Vessels Normal aortic root. The pulmonary artery is normal size. Inferior vena cava collapse with respiration. Pericardium/Pleural No pericardial effusion. MMode/2D Measurements & Calculations LVIDd: 4.2 cm IVSd: 0.75 cm Ao root diam: 2.9 cm LVIDs: 2.9 cm LVPWd: 0.77 cm RVDd: 3.5 cm FS: 30.5 % LAV(MOD-bp): 23.2 ml LVAd ap4: 23.1 cm2 SV(MOD-sp4): 41.5 ml LAV(MOD-bp) Indexed: 13.9 ml/m2 LVLd ap4: 6.9 cm SI(MOD-sp4): 24.8 ml/m2 LAV(MOD-sp2): 22.4 ml EDV(MOD-sp4): 63.9 ml LAV(MOD-sp4): 23.2 ml EDV(sp4-el): 65.5 ml LVAs ap4: 12.4 cm2 LVLs ap4: 5.7 cm ESV(MOD-sp4): 22.4 ml ESV(sp4-el): 22.9 ml EF(MOD-sp4): 64.9 % EF(sp4-el): 65.1 % SV(sp4-el): 42.6 ml LA A4 area: 11.8 cm2 LA dimension(2D): 3.9 cm RA A4 area: 17.3 cm2 TAPSE: 2.4 cm Time Measurements MV dec time: 0.28 sec Doppler Measurements & Calculations MV E max ning: 41.9 cm/sec Lat Peak E' Ning: 7.6 cm/sec Med Peak E' Ning: 6.3 cm/sec MV A max ning: 57.8 cm/sec E/E' lat: 5.5 E/E' med: 6.6 MV E/A: 0.73 MV P1/2t max ning: 42.7 cm/sec Ao V2 max: 112.1 cm/sec LV V1 max: 100.2 cm/sec MV P1/2t: 83.3 msec Ao max P.0 mmHg LV V1 max P.0 mmHg Ao V2 mean: 75.5 cm/sec LV V1 mean P.0 mmHg MV dec slope: 150.0 cm/sec2 Ao mean P.5 mmHg LV V1 mean: 65.7 cm/sec MVA(P1/2t): 2.6 cm2 Ao V2 VTI: 21.1 cm LV V1 VTI: 19.8 cm AV (velocity ratio): 0.94 PA V2 max: 92.4 cm/sec PI end-d ning: 113.6 cm/sec TR max ning: 247.9 cm/sec TR max P.6 mmHg ECHO/Echo Complete Interpretation Summary Normal LV size. Left ventricular systolic function is normal. The left ventricular ejection fraction is 65 %. Stage 1 diastolic dysfunction. Mild tricuspid valve insufficiency. Structurally normal valves. Ordering Physician: Rajat Cummins Referring Physician: Rajat Cummins Performed By: Suyapa POLLACK RDCS, Kaya and Student 05/28/25 1617 Date _ Phillip Borrego MD CC: Dr. Rajat Cummins, DO ~ Date Dictated: 05/28/25 1201 Date Transcribed: 05/28/25 1617 Potato Inspector: Signed [facility] Work Phone: Laboratory - Microbiology an d Antimicrobial susceptibilityOrdered By: Juan Miller on 05-20-2025 SARS-CoV-2 (COVID-19) RNA HUSSAIN+probe Ql (Unsp spec) Not detected [facility] No Panel InformationOrdered By: Juan Miller on 05-20-2025 POC Nasal Swab Influenza A,B Not detected [facility] POC Nasal Swab RSV Not detected [facility] Urgent Care Visit Reporton 0 05-20-2025 Urgent Care Visit Report [facility] [address], [address] [place] [address] OFFICE VISIT Date of Service: 05/20/25 MR#: [id number] Acct: [id number] Name: KARISERIN Rep #: [id number] : 1955 Provider: ANDRÉS Hernandez Age/Sex: 69/F Location: [facility] Status: Signed Intake Vital Signs 01/29/25 11:44 05/20/25 06:05 Height 5 ft 5 in 5 ft 5 in BP 110/60 Position Sitting Respiration 16 Pulse 66 Temp 98.1 F Temp Source Oral Pulse Oximetry (%) 96 Oxygen Delivery Method room air Intake Visit Reasons: CONGESTION, COUGH Accompanied by: Self Is patient in pain?: No Allergies No Known Allergies Allergy (Verified 05/20/25 06:18) Medications ???Medication ???Instructions ???Recorded ???Confirmed ???Type cholecalciferol (vitamin D3) 50 2,000 unit PO QDAY 03/07/18 History mcg (2,000 unit) capsule calcium carbonate 600 mg PO DAILY 09/02/20 05/20/25 History zinc gluconate 50 mg tablet 50 mg PO DAILY 12/28/22 05/20/25 H istory ascorbate calcium (vitamin C) 500 500 mg PO DAILY 03/11/23 05/20/25 History mg tablet omega 1-cez-sbo-fish oil 60 mg-90 1 cap PO DAILY 03/11/23 05/20/25 History mg-500 mg capsule (Fish Oil) benzonatate 200 mg capsule 200 mg PO TID PRN cough #20 caps 0 05/20/25 05/20/25 Rx methylprednisolone 4 mg tablets in See Rx Instructions PO PER PKG D IR 05/20/25 05/20/25 Rx a dose pack (Medrol (Aiden)) #21 tabs Have you fallen in the past year?: No Nurse's Note: Patient has a cough and wheezing. Patient was seen here yesterday and was told it was viral. Patient also saw her PCP on Tuesday cause she had a cough and they told her it could be viral. They did do a covid test on her and its negative. Patient states that she is worse and now has wheezing. Patient did take the Mucinex like Chidi told her to take she took one at 3pm and then 3am. [facility] Medical History (Updated 05/19/25 @ 12:08 by Chidi Dale WIRELINE SUPERVISOR, WIRELINE SUPERVISOR-C) Cat scratch of left hand Easy bruising History of stress test Post-menopausal Alcohol use Gastric reflux Non-smoker History of echocardiogram Hemorrhoid Cystocele Surgical History S/P cataract extraction History of Mohs micrographic surgery for skin cancer H/O bilateral salpingo-oophorectomy H/O total vaginal hysterectomy H/O cystoscopy bilateral sacrospinous ligament fixation History of colonoscopy ( 2018) stereotactic biopsy S/P lindsayctomy Family History Grandmother Breast cancer Mother Hypertension [...] at home: Yes additional social history: - 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 HPI Details: ERIN DYSON, is a 69 F who presents to the office today for initial evaluation in the [facility] for approximately 5 day history of persistent cough with wheezing noting evaluated by PCP 4 days ago as well as urgent care yesterday without improvement. No complaints of fever, chills, ROLLINS, myalgias, fatigue, congestion/ runny nose, nausea, and diarrhea. Patient notes no complaints of chest pain or shortness of breath or dyspnea on exertion. Unsure if close contacts recently dx???d w/ similar URI complaints. No nlrv-glw-jxyqruq medications have been taken to assist. Non-smoker. No other associated symptoms and no other alleviating/aggravati ng factors. ROS Const Constitutional: No other (As above) Exam Const General: cooperative, healthy appearing and no acute distress Orientation: alert, awake and oriented x3 HENMT Head: normal to inspection Ears: hearing grossly normal bilaterally, external ears normal, TM's normal bilaterally and EAC's normal Nose: external nose normal, nares normal, septum normal and clear nasal discharge Face and sinus: normal [...] supple Neck mass: No Thyroid: thyroid normal Lymphatic (more content not included)... Normal [facility] Urgent Care Visit Reporton 0 6-22-2025 Urgent Care Visit Report [facility] [address], [address] [place] [address] OFFICE VISIT Date of Service: 05/19/25 MR#: [id number] Acct: [id number] Name: ERIN DYSON Rep #: [id number] : 1955 Provider: KATHLEEN lowry Age/Sex: 69/F Location: [facility] Status: Signed Intake Vital Signs 01/29/25 11:44 05/19/25 11:59 Height 5 ft 5 in BP 112/60 Position Sitting Respiration 14 Pulse 60 Temp 98.5 F Temp Source Oral Pulse Oximetry (%) 95 Oxygen Delivery Method room air Intake Visit Reasons: CONGESTION, WHEEZING Accompanied by: Self Allergies No Known Allergies Allergy (Verified 05/19/25 11:57) Medications ???Medication ???Instructions ???Recorded ???Confirmed ???Type cholecalciferol (vitamin D3) 50 2,000 unit PO QDAY 03/07/18 History mcg (2,000 unit) capsule calcium carbonate 600 mg PO DAILY 09/02/20 05/19/25 History zinc gluconate 50 mg tablet 50 mg PO DAILY 12/28/22 05/19/25 H istory ascorbate calcium (vitamin C) 500 500 mg PO DAILY 03/11/23 05/19/25 History mg tablet omega 2-dpi-uqo-fish oil 60 mg-90 1 cap PO DAILY 03/11/23 05/19/25 History mg-500 mg capsule (Fish Oil) Have you fallen in the past year?: No Nurse's Note: Patient has a cough and wheezing. Patient also states that her eyes hurt and she feels like her throat is dry. Patient states its hard to explain. Patient states that she saw her PCP on Tuesday cause she had a cough and they told her it could be viral. They did do a covid test on her and its negative. Patient states that she is worse and now has wheezing. 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 HPI Details: ERIN DYSON, is a 69 F who presents to the office today. The patient is a 69-year-old female presenting with concerns of cough and wheezing. Symptoms began recently, initially evaluated as viral. COVID test negative, symptoms progressed to wheezing. Cough is dry, occasional yellow sputum, with eye discomfort and fatigue. Denies significant past medical history, nonsmoker. No history of wheezing, no chest pain, ear pain, or nasal drainage. Reports increased fatigue, usually active. - General: Reports fatigue. Denies fever, chills. - Respiratory: Reports cough, wheezing. Denies dyspnea, hemoptysis. - Eyes: Reports discomfort. Denies vision changes, flashing lights. - ENT: Denies ear pain, nasal drainage. - Cardiovascular: Denies chest pain. - Gastrointestinal: Denies abdominal pain, nausea, vomiting, diarrhea. - Genitourinary: Denies urinary symptoms. - Musculoskeletal: Denies muscle aches, pain. - Vital Signs: BP 112/60 mmHg, HR 60 bpm, RR 14 breaths/min, Temp 98.5???F, SpO2 95% on room air - Respiratory: Lungs clear to auscultation bilaterally, no wheezes, rales, or rhonchi - Cardiovascular: Regular rate and rhythm, no murmurs, rubs, or gallops - Ears: No signs of infection, no drainage - Throat: Mild erythema, tonsils normal Attestation: Documentation on this patient encounter was supported using ambient scribe technology/ voice AI technology. The patient consented to recording for the purpose of documenting the encounter. Provider reviewed content of the generated note prior to signature. ROS Const Constitutional: No body ache, chills, fatigue, fever(s), headache(s) or change in appetite Eyes Eyes: Positive for other (eye pain); No blurry vision, change in vision, double vision, irritation, discharge, vision loss, dry eyes, bulging ey (more content not included)... Normal [facility] Absolute lymphocyte countOrd ered By: HEALTH ASSESSMENT on 05-02-2025 Lymphocytes Auto (Unsp spec) [#/Vol] 1.46 10*3/uL 0.83-4.51 [facility] Absolute neutrophil countOrd ered By: HEALTH ASSESSMENT on 05-02-2025 Neutrophils (Bld) [#/Vol] 2.6 10*3/uL 2.0-7.7 [facility] Absolute nucleated red blood cell countOrdered By: HEALTH ASSESSMENT on 05-02-2025 Nucleated RBC (Bld) [#/Vol] 0.00 10*3/uL 0-5 [facility] Anion gap in Serum or Plasma Ordered By: HEALTH ASSESSMENT on 05-02-2025 Anion gap [Moles/Vol] 11 mmol/L 5-15 [facility] BUN/creatinine ratioOrdered By: HEALTH ASSESSMENT on 05-02-2025 Urea nitrogen/Creatinine [Mass ratio] 15.3 mg/mg 10-20 [facility] Bilirubin Test strip Ql (U)O rdered By: Rajat Cummins on 05-02-2025 Bilirubin Ql (U) Negative Negative [facility] Bilirubin directOrdered By: HEALTH ASSESSMENT on 05-02-2025 Bilirubin.direct [Mass/Vol] 0.15 mg/dL 0.00-0.30 [facility] Bilirubin, totalOrdered By: HEALTH ASSESSMENT on 05-02-2025 Bilirubin [Mass/Vol] 0.30 mg/dL 0.00-1.30 [facility] Blood band neutrophil count as percentage of total leukocytesOrdered By: HEALTH ASSESSMENT on 05-02-2025 Band form neutrophils/100 WBC (Bld) 58.0 % 47-70 [facility] CBC, Employeeon 05-02-2025 Absolute Lymph 1.46 X10 3/uL Normal 0.83-4.51 [facility] Comment on above: Performed By: #### L 500.2900, L400.0100, L100.0200 ####[facility] [address] [place], [address] Absolute Neut 2.6 X10 3/uL Normal 2.0-7.7 [facility] Comment on above: Performed By: #### L 500.2900, L400.0100, L100.0200 ####[facility] [address] [place], [address] Basophils/100 WBC (Bld) 0.5 % Normal 0-1 [facility] Comment on above: Performed By: #### L 500.2900, L400.0100, L100.0200 ####[facility] [address] [place], [address] Eosinophils/100 WBC (Bld) 2.5 % Normal 0-5 [facility] Comment on above: Performed By: #### L 500.2900, L400.0100, L100.0200 ####[facility] [address] [place], [address] Erythrocyte distribution width (RBC) [Ratio] 13.0 % Normal 11.6-14.6 [facility] Comment on above: Performed By: #### L 500.2900, L400.0100, L100.0200 ####[facility] [address] [place], [address] Hematocrit (Bld) [Volume fraction] 39.4 % Normal 37-47 [facility] Comment on above: Performed By: #### L 500.2900, L400.0100, L100.0200 ####[facility] [address] [place], [address] Hemoglobin (Bld) [Mass/Vol] 13.4 g/dL Normal 12.0-15.0 [facility] Comment on above: Performed By: #### L 500.2900, L400.0100, L100.0200 ####[facility] [address] [place], [address] Lymphocytes/100 WBC (Bld) 33.1 % Normal 19-41 [facility] Comment on above: Performed By: #### L 500.2900, L400.0100, L100.0200 ####[facility] [address] [place], [address] MCH (RBC) [Entitic mass] 31.8 pg Normal 27.0-32.0 [facility] Comment on above: Performed By: #### L 500.2900, L400.0100, L100.0200 ####[facility] [address] [place], [address] MCHC (RBC) [Mass/Vol] 34.0 g/dL Normal 32-36 [facility] Comment on above: Performed By: #### L 500.2900, L400.0100, L100.0200 ####[facility] [address] [place], [address] MCV (RBC) [Entitic vol] 93.4 fL Normal 81-99 [facility] Comment on above: Performed By: #### L 500.2900, L400.0100, L100.0200 ####[facility] [address] [place], [address] Monocytes/100 WBC (Bld) 5.7 % Normal 0-10 [facility] Comment on above: Performed By: #### L 500.2900, L400.0100, L100.0200 ####[facility] [address] [place], [address] Neutrophils/100 WBC (Bld) 58.0 % Normal 47-70 [facility] Comment on above: Performed By: #### L 500.2900, L400.0100, L100.0200 ####[facility] [address] [place], [address] NRBC # 0.00 10 3/uL Normal 0-5 [facility] Comment on above: Performed By: #### L 500.2900, L400.0100, L100.0200 ####[facility] [address] [place], [address] Nucleated RBC (Bld) [#/Vol] 0 10*3/uL Normal 0-5 [facility] Comment on above: Performed By: #### L 500.2900, L400.0100, L100.0200 ####[facility] [address] [place], [address] Platelet mean volume (Bld) [Entitic vol] 9.1 fL Normal 6.2-12.0 [facility] Comment on above: Performed By: #### L 500.2900, L400.0100, L100.0200 ####[facility] [address] [place], [address] Platelets (Bld) [#/Vol] 228 10*3/uL Normal 150-450 [facility] Comment on above: Performed By: #### L 500.2900, L400.0100, L100.0200 ####[facility] [address] [place], [address] RBC (Bld) [#/Vol] 4.22 10*6/uL Normal 4.2-5.4 [facility] Comment on above: Performed By: #### L 500.2900, L400.0100, L100.0200 ####[facility] [address] [place], [place], [address] RDW SD 44.7 fl High 35.1-43.9 [facility] Comment on above: Performed By: #### L 500.2900, L400.0100, L100.0200 ####[facility] [address] [place], [place], [address] WBC (Bld) [#/Vol] 4.4 10*3/uL Normal 4.4-11.0 [facility] Comment on above: Performed By: #### L 500.2900, L400.0100, L100.0200 ####[facility] [address] [place], [place], [address] Calculated very low density lipoprotein (VLDL) cholesterol measurementOrdered By: HEALTH ASSESSMENT on 05-02-2025 Calculated very low density lipoprotein (VLDL) cholesterol measurement 9 mg/dL 5-40 [facility] Carbon dioxide, total [Moles /volume] in Central venous bloodOrdered By: HEALTH ASSESSMENT on 05-02-2025 CO2 [Moles/Vol] 22.1 mmol/L 21.0-32.0 [facility] Chloride assayOrdered By: HE ALTH ASSESSMENT on 05-02-2025 Chloride [Moles/Vol] 106 mmol/L 98-108 [facility] Employee Profileon Cholesterol in LDL [Mass/Vol] 93 mg/dL Normal 0-130 [facility] Comment on above: Performed By: #### L 500.2900, L400.0100, L100.0200 ####[facility] [address] [place], [address] Erythrocyte distribution wid th ratioOrdered By: HEALTH ASSESSMENT on 05-02-2025 Erythrocyte distribution width (RBC) [Ratio] 13.0 % 11.6-14.6 [facility] Erythrocyte distribution wid th standard deviationOrdered By: HEALTH ASSESSMENT on 05-02-2025 Erythrocyte distribution width (RBC) [Ratio] 44.7 fl High 35.1-43.9 [facility] Glomerular filtration rate ( GFR) estimation/1.73 sq m using serum, plasma, or whole bOrdered By: HEALTH ASSESSMENT on 05-02-2025 GFR/1.73 sq M.predicted among non-blacks MDRD (S/P/Bld) [Vol rate/Area] 90 mL/min/{1.73_m2} >60 [facility] Comment on above: mL/min/1.73m2 CKD-EP I Creatinine Equation (2020) Hematocrit Auto (Bld) [Volum e fraction]Ordered By: HEALTH ASSESSMENT on 05-02-2025 Hematocrit (Bld) [Volume fraction] 39.4 % 37-47 [facility] Hemoglobin measurementOrdere d By: HEALTH ASSESSMENT on 05-02-2025 Hemoglobin (Bld) [Mass/Vol] 13.4 g/dL 12.0-15.0 [facility] Ketones Test strip Ql (U)Ord ered By: Rajat Fast on 05-02-2025 Ketones Ql (U) Negative Negative [facility] Laboratory - Chemistry and C hemistry - challengeOrdered By: HEALTH ASSESSMENT on 05-02-2025 AST [Catalytic activity/Vol] 29 U/L <32 [facility] Lactate dehydrogenase (LDH) measurementOrdered By: HEALTH ASSESSMENT on 05-02-2025 LDH [Catalytic activity/Vol] 101 U/L 84-246 [facility] MCV (mean corpuscular volume ) determinationOrdered By: HEALTH ASSESSMENT on 05-02-2025 MCV (RBC) [Entitic vol] 93.4 fL 81-99 [facility] Mean corpuscular hemoglobin (MCH) determinationOrdered By: HEALTH ASSESSMENT on 05-02-2025 MCH (RBC) [Entitic mass] 31.8 pg 27.0-32.0 [facility] Mean corpuscular hemoglobin concentration (MCHC) determinationOrdered By: HEALTH ASSESSMENT on 05-02-2025 MCHC (RBC) [Mass/Vol] 34.0 g/dL 32-36 [facility] Mean platelet volume determi nationOrdered By: HEALTH ASSESSMENT on 05-02-2025 Platelet mean volume (Bld) [Entitic vol] 9.1 fL 6.2-12.0 [facility] Microalb:Creat Ratio,Random URon 05-02-2025 Creatinine [Mass/Vol] 41.00 mg/dL Normal 28.00- 217.0 0 [facility] Comment on above: Performed By: #### L 506.1001, L400.0001, L502.0250 ####[facility] [address] [place], [address] MALB:CREAT UNABLE TO CALCULATE Normal [facility] Comment on above: Performed By: #### L 506.1001, L400.0001, L502.0250 ####[facility] [address] [place], [address] MICROALBUMIN,UR < 12.0 Normal NO RANGE EST. [facility] Comment on above: Performed By: #### L 506.1001, L400.0001, L502.0250 ####[facility] [address] [place], [address] Microalbumin/creat ratio urO rdered By: Rajat Cummins on 05-02-2025 Urine microalbumin/creatinine ratio measurement UNABLE TO CALCULATE mg/g CRE [facility] Microscopic analysis of urin e for red blood cells (RBC)Ordered By: Rajat Cummins on 05-02-2025 Microscopic analysis of urine for red blood cells (RBC) 0 SEEN /hpf 0-5 [facility] Mucus LM Ql (Urine sed)Order ed By: Rajat Cummins on 05-02-2025 Mucus Ql (Urine sed) 0 SEEN /hpf [facility] Nitrite Test strip Ql (U)Ord ered By: Rajat Cummins on 05-02-2025 Nitrite Ql (U) Negative Negative [facility] Nucleated red blood cell per centageOrdered By: HEALTH ASSESSMENT on 05-02-2025 Nucleated RBC/100 WBC (Bld) [Ratio] 0 % 0-5 [facility] Platelet countOrdered By: DEMARCUS ALTH ASSESSMENT on 05-02-2025 Platelets (Bld) [#/Vol] 228 10*3/uL 150-450 [facility] Potassium measurement (mass/ volume)Ordered By: HEALTH ASSESSMENT on 05-02-2025 Potassium (Unsp spec) [Mass/Vol] 4.1 mmol/L 3.3-5.1 [facility] Protein Test strip Ql (U)Ord ered By: Rajat Fast on 05-02-2025 Protein Ql (U) Negative Negative [facility] RBC Auto (Bld) [#/Vol]Ordere d By: HEALTH ASSESSMENT on 05-02-2025 RBC (Bld) [#/Vol] 4.22 10*6/uL 4.2-5.4 [facility] Random urine creatinine peggy urement (mass/volume)Ordered By: Rajat Fast on 05-02-2025 Creatinine Unsp time (U) [Mass/Vol] 41.00 mg/dL 28.00-217.0 0 [facility] Screening total cholesterol/ high density lipoprotein (HDL) cholesterol ratioOrdered By: HEALTH ASSESSMENT on 05-02-2025 Cholesterol.total/Maggie sterol in HDL [Mass ratio] 2.18 {ratio} [facility] Serum creatinine measurement (mass/volume)Ordered By: HEALTH ASSESSMENT on 05-02-2025 Creatinine [Mass/Vol] 0.72 mg/dL 0.70-1.20 [facility] Serum globulin measurementOr dered By: HEALTH ASSESSMENT on 05-02-2025 Globulin (S) [Mass/Vol] 2.4 g/dL 2.2-4.2 [facility] Serum glucose measurement (m ass/volume)Ordered By: HEALTH ASSESSMENT on 05-02-2025 Glucose [Mass/Vol] 92 mg/dL 70-99 [facility] Serum or plasma alanine teresa otransferase (ALT) measurementOrdered By: HEALTH ASSESSMENT on 05-02-2025 ALT [Catalytic activity/Vol] 17 U/L <35 [facility] Serum or plasma albumin peggy urement (mass/volume)Ordered By: HEALTH ASSESSMENT on 05-02-2025 Albumin [Mass/Vol] 4.0 g/dL 3.4-4.8 [facility] Serum or plasma albumin/glob ulin mass ratioOrdered By: HEALTH ASSESSMENT on 05-02-2025 Albumin/Globulin [Mass ratio] 1.7 {ratio} 0.9-2.4 [facility] Serum or plasma alkaline debbie sphatase measurementOrdered By: HEALTH ASSESSMENT on 05-02-2025 ALP [Catalytic activity/Vol] 51 U/L 35-104 [facility] Serum or plasma calcium peggy urement (mass/volume)Ordered By: HEALTH ASSESSMENT on 05-02-2025 Calcium [Mass/Vol] 9.6 mg/dL 7.6-11.0 [facility] Serum or plasma cholesterol in HDL measurement (mass/volume)Ordered By: HEALTH ASSESSMENT on 05-02-2025 Cholesterol in HDL [Mass/Vol] 86 mg/dL >40 [facility] Comment on above: National Cholesterol Education Program (NCEP) guidelines:<40 mg/dL: Low HDL-cholesterol (major risk factor for CHD)>= 60 mg/dL: High HDL-cholesterol (negative risk factor for CHD)HDL-cholesterol is affected by a number of factors, e.g. smoking, exercise, hormones, sex and age. Serum or plasma cholesterol in LDL measurement (mass/volume)Ordered By: HEALTH ASSESSMENT on 05-02-2025 Cholesterol in LDL [Mass/Vol] 93 mg/dL 0-130 [facility] Serum or plasma cholesterol measurement (mass/volume)Ordered By: HEALTH ASSESSMENT on 05-02-2025 Cholesterol [Mass/Vol] 188 mg/dL <201 [facility] Comment on above: Cholesterol level, D esirable <200 mg/dLBorderline high cholesterol 200-239 mg/dLHigh cholesterol >=240 mg/dLRecommendations of the NCEP Adult Treatment Panel for the following risk-cutoff thresholds for the [place] population. Serum or plasma urea nitroge n measurement (mass/volume)Ordered By: HEALTH ASSESSMENT on 05-02-2025 Urea nitrogen [Mass/Vol] 11 mg/dL 4-19 [facility] Serum or plasma uric acid me asurement (mass/volume)Ordered By: HEALTH ASSESSMENT on 05-02-2025 Urate [Mass/Vol] 4.2 mg/dL 2.6-6.0 [facility] Comment on above: The drugs N-Acetylcy steine and Metamizole may falsely depress this assay. Sodium levelOrdered By: HEAL TH ASSESSMENT on 05-02-2025 Sodium [Moles/Vol] 139 mmol/L 133-145 [facility] Squamous epithelial cells de tection in urine sediment by light microscopyOrdered By: Rajat Cummins on 05-02-2025 Epithelial cells.squamous LM Ql (Urine sed) 5-10 SEEN /hpf - [facility] Total proteinOrdered By: JAIDEN LTH ASSESSMENT on 05-02-2025 Protein [Mass/Vol] 6.5 g/dL 5.9-8.4 [facility] Triglycerides measurementOrd ered By: HEALTH ASSESSMENT on 05-02-2025 Triglyceride [Mass/Vol] 45 mg/dL <199 [facility] Comment on above: The drugs N-Acetylcy steine and Metamizole may falsely depress this assay. Normal range: <150 mg/dLBorderline High: 150-199 mg/dLHigh: 200-499 mg/dLVery High: >500 mg/dL Urinalysis, Completeon 05-02 EPI,SQUAMOUS 5-10 SEEN Normal 04-06 [facility] Comment on above: Order Comment: Urine , Random Performed By: #### L 506.1001, L400.0001, L502.0250 ####[facility] [address] [place], [address] BACTERIA 0 SEEN Normal None Seen [facility] Comment on above: Order Comment: Urine , Random Performed By: #### L 506.1001, L400.0001, L502.0250 ####[facility] [address] [place], [address] Mucus Ql (Urine sed) 0 SEEN Normal [facility] Comment on above: Order Comment: Urine , Random Performed By: #### L 506.1001, L400.0001, L502.0250 ####[facility] [address] [place], [address] RBC 0 SEEN Normal 0-5 [facility] Comment on above: Order Comment: Urine , Random Performed By: #### L 506.1001, L400.0001, L502.0250 ####[facility] [address] [place], [address] WBC 0 SEEN Normal 0-5 [facility] Comment on above: Order Comment: Urine , Random Performed By: #### L 506.1001, L400.0001, L502.0250 ####[facility] [address] [place], [address] Urinalysis, Employeeon 05-02 BILIRUBIN URINE Normal Negative [facility] Comment on above: Order Comment: Urine , Random Result Comment: UAC ORDERED Performed By: #### L 500.2900, L400.0100, L100.0200 ####[facility] [address] [place], [address] Clarity (U) Normal Clear [facility] Comment on above: Order Comment: Urine , Random Result Comment: UAC ORDERED Performed By: #### L 500.2900, L400.0100, L100.0200 ####[facility] [address] [place], [address] Color (U) Normal Yellow [facility] Comment on above: Order Comment: Urine , Random Result Comment: UAC ORDERED Performed By: #### L 500.2900, L400.0100, L100.0200 ####[facility] [address] [place], [address] GLUCOSE, UR Normal Normal [facility] Comment on above: Order Comment: Urine , Random Result Comment: UAC ORDERED Performed By: #### L 500.2900, L400.0100, L100.0200 ####[facility] [address] [place], [address] KETONE UR Normal Negative [facility] Comment on above: Order Comment: Urine , Random Result Comment: UAC ORDERED Performed By: #### L 500.2900, L400.0100, L100.0200 ####[facility] [address] [place], [address] LEUK ESTERASE Normal Negative [facility] Comment on above: Order Comment: Urine , Random Result Comment: UAC ORDERED Performed By: #### L 500.2900, L400.0100, L100.0200 ####[facility] [address] [place], [address] Nitrite Ql (U) Normal Negative [facility] Comment on above: Order Comment: Urine , Random Result Comment: UAC ORDERED Performed By: #### L 500.2900, L400.0100, L100.0200 ####[facility] [address] [place], [address] OCCULT BLOOD-UR Normal Negative [facility] Comment on above: Order Comment: Urine , Random Result Comment: UAC ORDERED Performed By: #### L 500.2900, L400.0100, L100.0200 ####[facility] [address] [place], [address] pH UR Normal 5.0 - 8.0 [facility] Comment on above: Order Comment: Urine , Random Result Comment: UAC ORDERED Performed By: #### L 500.2900, L400.0100, L100.0200 ####[facility] [address] [place], [address] PROT DIPSTX Normal Negative [facility] Comment on above: Order Comment: Urine , Random Result Comment: UAC ORDERED Performed By: #### L 500.2900, L400.0100, L100.0200 ####[facility] [address] [place], [address] SP.GR. DIPSTX Normal 1.002-1.030 [facility] Comment on above: Order Comment: Urine , Random Result Comment: UAC ORDERED Performed By: #### L 500.2900, L400.0100, L100.0200 ####[facility] [address] [place], [address] UR Preservative Normal [facility] Comment on above: Order Comment: Urine , Random Result Comment: UAC ORDERED Performed By: #### L 500.2900, L400.0100, L100.0200 ####[facility] [address] [place], [place], [address] UROBILI Normal Normal [facility] Comment on above: Order Comment: Urine , Random Result Comment: UAC ORDERED Performed By: #### L 500.2900, L400.0100, L100.0200 ####[facility] [address] [place], [place], [address] Urine albumin measurement wi detection limit of 20 mg/L or less (mass/volume)Ordered By: Rajat on 05-02-2025 Albumin DL <= 20 mg/L (U) [Mass/Vol] < 12.0 mg/L NO RANGE EST. [facility] Urine clarityOrdered By: Emelia houston on 05-02-2025 Clarity (U) Clear Clear [facility] Urine color determinationOrd ered By: Rajat on 05-02-2025 Color (U) Yellow Yellow [facility] Urine glucose detectionOrder ed By: Rajat on 05-02-2025 Glucose Ql (U) Normal mg/dl Normal [facility] Urine leukocyte esterase det ection by dipstickOrdered By: Rajat on 05-02-2025 Leukocyte esterase Test strip Ql (U) Negative Negative [facility] Urine pHOrdered By: Rajat Fa st on 05-02-2025 pH (U) 6.0 [pH] 5.0 - 8.0 [facility] Urine sediment bacteria coun t by microscopy (number/high power field)Ordered By: Rajat on 05-02-2025 Bacteria LM.HPF (Urine sed) [#/Area] 0 /[HPF] None Seen [facility] Urine specific gravity measu rementOrdered By: Rajat on 05-02-2025 Specific gravity (U) [Rel density] 1.010 1.002-1.030 [facility] Urine urobilinogen measureme ntOrdered By: Rajat on 05-02-2025 Urobilinogen Ql (U) Normal mg/dl Normal [facility] Vitamin D,25 Hydroxyon 05-02 Vitamin D 25-OH 55.2 ng/mL Normal 30-100 [facility] Comment on above: Result Comment: Charo min D Status Deficiency: <20 ng/mL (50nmol/L) Insufficiency: 20-30 ng/mL (50-75 nmol/L) Sufficiency: 30-100 ng/mL (75-250 nmol/L) Toxicity: >100 ng/mL (>250 nmol/L) Performed By: #### L 506.1001, L400.0001, L502.0250 ####[facility] [address] [place], [address] White blood cell (WBC) count Ordered By: HEALTH ASSESSMENT on 05-02-2025 WBC (Bld) [#/Vol] 4.4 10*3/uL 4.4-11.0 [facility] White blood cell countOrdere d By: Rajat Cummins on 05-02-2025 White blood cell count 0 SEEN /hpf 0-5 [facility] Laboratory - Microbiology an d Antimicrobial susceptibilityOrdered By: Juan Miller on 04-16-2025 SARS-CoV-2 (COVID-19) RNA HUSSAIN+probe Ql (Unsp spec) Not detected [facility] No Panel InformationOrdered By: Juan Miller on 04-16-2025 POC Nasal Swab Influenza A,B Not detected [facility] POC Nasal Swab RSV Not detected [facility] Urgent Care Visit Reporton 0 04-16-2025 Urgent Care Visit Report [facility] [address] , [address] [place], [place] [address] OFFICE VISIT Date of Service: 04/16/25 MR#: [id number] Acct: [id number] Name: ERIN DYSON APOLLO Rep #: [id number] : 1955 Provider: ANDRÉS Hernandez Age/Sex: 69/F Location: [facility] Status: Signed Intake Vital [...] DAILY 03/11/23 04/16/25 History mg tablet omega 2-nwj-jgo-fish oil 60 mg-90 1 cap PO DAILY [...] feeling sick and is concern for Covid. 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 HPI Details: ERIN DYSON, is [...] recently dx???d w/ similar URI complaints. No deru-hzx-ahhltqu taken to assist, though Amoxicillin prescribed by [...] nose normal, nares normal, septum normal and cjapp-kl-nbnqgu clear nasal discharge Face and sinus: normal [...] exam A (more content not included)... Normal [facility] Upper Ext Joint Only(Routine )on 03-13-2025 Upper Ext Joint Only(Routine) [facility] [address] [place] [address] Upper Ext Joint Only(Routine) MR#: [id number] Acct: [id number] Name: ERIN DYSON Rep #: [id number] : 1955 F 69 From: [place] [facility] PCP: Dr. Rajat Cummins, Status: DEP CLI Study: Upper Ext Joint Only(Routine) Date of Exam: 0 03/13/25 Exam# [id number] Ordering Dr: Rajat Cummins DO EXAM: MRI right shoulder without IV [...] bursa. Reading Location: [facility] CC: Dr. Rajat Cummins DO Potato Inspector: Signed [facility] CNOVon 02-12-2025 CNOV Office Visit (NEMOWS ) ERIN DYSON ([id number]) 1955 F Date Time Provider Department 02/12/25 3:45 PM DANNI GURROLA During your visit today, we recorded the following information about you: Pulse Blood pressure 62/minute 146/91 Nohemy Dudley LPN 02/12/2025 4:07 PM Signed Danni Gurrola PA-C 02/12/2025 4:07 PM Signed [facility] Name: Erin Dyson Age: [age] year old Gender: female Primary Care Provider: Rajat Cummins DO Assessment/Plan: 02/12/2025 - General NeurologyDanni PA-C ASSESSMENT ASSESSMENT/PLAN: 1. Dementia without behavioral [...] states she had an EKG done at [facility] but is unsure how long ago. [...] Date NONE (more content not included)... Normal [facility] Urgent Care Visit Reporton 0 01-29-2025 Urgent Care Visit Report [facility] [address], [address] [place] [address] OFFICE VISIT Date of Service: 01/29/25 MR#: [id number] Acct: [id number] Name: ERIN DYSON APOLLO Rep #: [id number] : 1955 Provider: ANDRÉS Hernandez Age/Sex: 69/F Location: [facility] Status: Signed with Addenda ADDENDUM by Radha Cai on 01/29/25 at 1230 Office Procedure Documentation entered by Radha Cai 01/29/25 12:30: Immunizations Boostrix Tdap 2.5 Lf unit-8 mcg-5 Lf/0.5 mL intramuscular syringe Performing Provider: ANDRÉS Ball Performing Location: [facility] Administered by: Radha Cai on 01/29/25 12:29 Dose Route Admin Location Dispensed Lot Number Expiration Date [facility] Man ufacturer 0.5 mL IM Right Deltoid 0.5 mL [id number] 12/22/26 33693-371-79 [facility] Given Date VIS Provided VIS Publication [...] SCRATCH Chief Complaint: left hand 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 Normal [facility] Rc 01-24-2025 [facility] Telephone (Ob Hospitalist Group) KARISERIN TAMEZ ([id number]) 1955 F Date Time Provider Department 01/24/25 [...] VM return call. AUBREE Beal M Robin, RN 01/29/2025 1:03 PM Signed Patient returned call and advised per message below there is no sooner appt. Pt states she will keep her appt on 02-12-25 with Tarik Gurrola. Allergies As of Date: 01/24/2025 (No Known Allergies) Date Reviewed: 11/02/2024 Reviewed by: Ozzie Robertson Jr., MD - Fully Assessed Reason for Visit: Patient Question [9097] Patient Update [1874] Prescriptions as of 01/29/2025 - memantine (NAMENDA) [...] Status:Closed by NOHEMY DUDLEY on 01/24/25 Normal [facility] 54-GB-Orbpkvb DOrdered By: Frances Cummins on 01-17-2025 Vitamin D 25-Hydroxy 54.9 ng/mL [facility] Comment on above: Vitamin D 25(OH) Sta tus Range Deficiency <20 ng/mL (50nmol/L) Insufficiency 20 - 30 ng/mL (50 - 75 nmol/L) Sufficiency 30 - 100 ng/mL (75 - 250 nmol/L) Toxicity >100 ng/mL (>250 nmol/L) Absolute lymphocyte countOrd ered By: Rajat on 01-17-2025 Lymphocytes Auto (Unsp spec) [#/Vol] 1.18 10*3/uL 0.83-4.51 [facility] Absolute neutrophil countOrd ered By: Rajat on 01-17-2025 Neutrophils (Bld) [#/Vol] 2.9 10*3/uL 2.0-7.7 [facility] Albumin to globulin ratioOrd ered By: Rajat on 01-17-2025 Albumin/Globulin [Mass ratio] 1.1 {ratio} 0.9-2.4 [facility] Automated lymphocyte count a s percentage of total leukocytesOrdered By: Rajat on 01-17-2025 Lymphocytes/100 WBC Auto (Unsp spec) 25.7 % 19-41 [facility] Basophil percentageOrdered B y: Rajat Fast on 01-17-2025 Basophils/100 WBC (Bld) 0.9 % 0-1 [facility] Bilirubin, totalOrdered By: on 01-17-2025 Bilirubin [Mass/Vol] 0.70 mg/dL 0.20-1.00 [facility] Comment on above: For patients on eltr ombopag therapy, use of Dimension [place] TBIL is not recommended. Blood urea nitrogen (BUN)/cr eatinine ratioOrdered By: on 01-17-2025 Urea nitrogen/Creatinine [Mass ratio] 13.8 mg/mg - [facility] CBC W/Diff, Automatedon 12-30 0-2024 Absolute Lymph 1.18 X10 3/uL Normal 0.83-4.51 [facility] Comment on above: Performed By: #### L 100.0100, L500.4050, L500.4100, L503.0105, L506.1000, L506.0250 ####[facility] [address] [place], [address] Absolute Neut 2.9 X10 3/uL Normal 2.0-7.7 [facility] Comment on above: Performed By: #### L 100.0100, L500.4050, L500.4100, L503.0105, L506.1000, L506.0250 ####[facility] [address] [place], [address] Basophils/100 WBC (Bld) 0.9 % Normal 0-1 [facility] Comment on above: Performed By: #### L 100.0100, L500.4050, L500.4100, L503.0105, L506.1000, L506.0250 ####[facility] [address] [place], [address] Eosinophils/100 WBC (Bld) 3.3 % Normal 0-5 [facility] Comment on above: Performed By: #### L 100.0100, L500.4050, L500.4100, L503.0105, L506.1000, L506.0250 ####[facility] [address] [place], [address] Erythrocyte distribution width (RBC) [Ratio] 13.2 % Normal 11.6-14.6 [facility] Comment on above: Performed By: #### L 100.0100, L500.4050, L500.4100, L503.0105, L506.1000, L506.0250 ####[facility] [address] [place], [address] Hematocrit (Bld) [Volume fraction] 41.6 % Normal 37-47 [facility] Comment on above: Performed By: #### L 100.0100, L500.4050, L500.4100, L503.0105, L506.1000, L506.0250 ####[facility] [address] [place], [address] Hemoglobin (Bld) [Mass/Vol] 13.8 g/dL Normal 12.0-15.0 [facility] Comment on above: Performed By: #### L 100.0100, L500.4050, L500.4100, L503.0105, L506.1000, L506.0250 ####[facility] [address] [place], [address] IG% 0.200 Normal 0.0-0.9 [facility] Comment on above: Result Comment: IG% - Immature Granulocytes (promyelocytes, myelocytes and metamyelocytes) > 1% indicates that a LEFT SHIFT is Present. Performed By: #### L 100.0100, L500.4050, L500.4100, L503.0105, L506.1000, L506.0250 ####[facility] [address] [place], [address] Lymphocytes/100 WBC (Bld) 25.7 % Normal 19-41 [facility] Comment on above: Performed By: #### L 100.0100, L500.4050, L500.4100, L503.0105, L506.1000, L506.0250 ####[facility] [address] [place], [address] MCH (RBC) [Entitic mass] 31.2 pg Normal 27.0-32.0 [facility] Comment on above: Performed By: #### L 100.0100, L500.4050, L500.4100, L503.0105, L506.1000, L506.0250 ####[facility] [address] [place], [address] MCHC (RBC) [Mass/Vol] 33.2 g/dL Normal 32-36 [facility] Comment on above: Performed By: #### L 100.0100, L500.4050, L500.4100, L503.0105, L506.1000, L506.0250 ####[facility] [address] [place], [address] MCV (RBC) [Entitic vol] 93.9 fL Normal 81-99 [facility] Comment on above: Performed By: #### L 100.0100, L500.4050, L500.4100, L503.0105, L506.1000, L506.0250 ####[facility] [address] [place], [address] Monocytes/100 WBC (Bld) 6.8 % Normal 0-10 [facility] Comment on above: Performed By: #### L 100.0100, L500.4050, L500.4100, L503.0105, L506.1000, L506.0250 ####[facility] [address] [place], [address] Neutrophils/100 WBC (Bld) 63.1 % Normal 47-70 [facility] Comment on above: Performed By: #### L 100.0100, L500.4050, L500.4100, L503.0105, L506.1000, L506.0250 ####[facility] [address] [place], [address] Nucleated RBC (Bld) [#/Vol] 0 10*3/uL Normal 0-5 [facility] Comment on above: Performed By: #### L 100.0100, L500.4050, L500.4100, L503.0105, L506.1000, L506.0250 ####[facility] [address] [place], [address] Platelet mean volume (Bld) [Entitic vol] 8.8 fL Normal 6.2-12.0 [facility] Comment on above: Performed By: #### L 100.0100, L500.4050, L500.4100, L503.0105, L506.1000, L506.0250 ####[facility] [address] [place], [address] Platelets (Bld) [#/Vol] 197 10*3/uL Normal 150-450 [facility] Comment on above: Performed By: #### L 100.0100, L500.4050, L500.4100, L503.0105, L506.1000, L506.0250 ####[facility] [address] [place], [address] RBC (Bld) [#/Vol] 4.43 10*6/uL Normal 4.2-5.4 [facility] Comment on above: Performed By: #### L 100.0100, L500.4050, L500.4100, L503.0105, L506.1000, L506.0250 ####[facility] [address] [place], [address] RDW SD 45.5 fl High 35.1-43.9 [facility] Comment on above: Performed By: #### L 100.0100, L500.4050, L500.4100, L503.0105, L506.1000, L506.0250 ####[facility] [address] [place], [address] WBC (Bld) [#/Vol] 4.6 10*3/uL Normal 4.4-11.0 [facility] Comment on above: Performed By: #### L 100.0100, L500.4050, L500.4100, L503.0105, L506.1000, L506.0250 ####[facility] [address] [place], [address] Carbon dioxide measurementOr dered By: Rajat Fast on 01-17-2025 CO2 [Moles/Vol] 28.0 mmol/L 21.0-32.0 [facility] Chloride measurementOrdered By: Rajat Fast on 01-17-2025 Chloride [Moles/Vol] 107 mmol/L 98-107 [facility] Comprehensive Metabolic Prof ilon 01-17-2025 Albumin [Mass/Vol] 3.8 g/dL Normal 3.2-5.0 [facility] Comment on above: Performed By: #### L 100.0100, L500.4050, L500.4100, L503.0105, L506.1000, L506.0250 ####[facility] [address] [place], [address] Albumin/Globulin [Mass ratio] 1.1 {ratio} Normal 0.9-2.4 [facility] Comment on above: Performed By: #### L 100.0100, L500.4050, L500.4100, L503.0105, L506.1000, L506.0250 ####[facility] [address] [place], [address] ALK P 53 U/L Normal 45-117 [facility] Comment on above: Performed By: #### L 100.0100, L500.4050, L500.4100, L503.0105, L506.1000, L506.0250 ####[facility] [address] [place], [address] ALT [Catalytic activity/Vol] 23 U/L Normal 13-56 [facility] Comment on above: Performed By: #### L 100.0100, L500.4050, L500.4100, L503.0105, L506.1000, L506.0250 ####[facility] [address] [place], [address] AST [Catalytic activity/Vol] 25 U/L Normal 15-37 [facility] Comment on above: Performed By: #### L 100.0100, L500.4050, L500.4100, L503.0105, L506.1000, L506.0250 ####[facility] [address] [place], [place], [phone]) Bilirubin [Mass/Vol] 0.70 mg/dL Normal 0.20-1.00 [facility] Comment on above: Result Comment: For patients on eltrombopag therapy, use of Dimension [place] TBIL is not recommended. Performed By: #### L 100.0100, L500.4050, L500.4100, L503.0105, L506.1000, L506.0250 ####[facility] [address] [place], [place], [phone] BUN/CRE 13.8 RATIO Normal 10-20 [facility] Comment on above: Performed By: #### L 100.0100, L500.4050, L500.4100, L503.0105, L506.1000, L506.0250 ####[facility] [address] [place], [place], [phone] CA,Total 9.9 mg/dL Normal 8.5-10.1 [facility] Comment on above: Performed By: #### L 100.0100, L500.4050, L500.4100, L503.0105, L506.1000, L506.0250 ####[facility] [address] [place], [address] Chloride [Moles/Vol] 107 mmol/L Normal 98-107 [facility] Comment on above: Performed By: #### L 100.0100, L500.4050, L500.4100, L503.0105, L506.1000, L506.0250 ####[facility] [address] [place], [address] CO2 [Moles/Vol] 28.0 mmol/L Normal 21.0-32.0 [facility] Comment on above: Performed By: #### L 100.0100, L500.4050, L500.4100, L503.0105, L506.1000, L506.0250 ####[facility] [address] [place], [address] Creatinine [Mass/Vol] 0.80 mg/dL Normal 0.55-1.02 [facility] Comment on above: Result Comment: The validity of the calculated GFR GFRAA in patients over 70 years has not been determined. Clinical correlation is essential. Performed By: #### L 100.0100, L500.4050, L500.4100, L503.0105, L506.1000, L506.0250 ####[facility] [address] [place], [address] EST GFR - AA 92 mL/min Normal >60 [facility] Comment on above: Result Comment: Afri can Surinamese GFR Calc Performed By: #### L 100.0100, L500.4050, L500.4100, L503.0105, L506.1000, L506.0250 ####[facility] [address] [place], [address] GAP 5 Normal 5-15 [facility] Comment on above: Performed By: #### L 100.0100, L500.4050, L500.4100, L503.0105, L506.1000, L506.0250 ####[facility] [address] [place], [address] GFR/1.73 sq M.predicted among non-blacks MDRD (S/P/Bld) [Vol rate/Area] 76 mL/min/{1.73_m2} Normal >60 [facility] Comment on above: Result Comment: Non- GFR Calc Performed By: #### L 100.0100, L500.4050, L500.4100, L503.0105, L506.1000, L506.0250 ####[facility] [address] [place], [address] Globulin (S) [Mass/Vol] 3.4 g/dL Normal 2.2-4.2 [facility] Comment on above: Performed By: #### L 100.0100, L500.4050, L500.4100, L503.0105, L506.1000, L506.0250 ####[facility] [address] [place], [address] Glucose [Mass/Vol] 93 mg/dL Normal 74-106 [facility] Comment on above: Performed By: #### L 100.0100, L500.4050, L500.4100, L503.0105, L506.1000, L506.0250 ####[facility] [address] [place], [address] Potassium [Moles/Vol] 4.3 mmol/L Normal 3.5-5.1 [facility] Comment on above: Performed By: #### L 100.0100, L500.4050, L500.4100, L503.0105, L506.1000, L506.0250 ####[facility] [address] [place], [address] Sodium [Moles/Vol] 140 mmol/L Normal 136-145 [facility] Comment on above: Performed By: #### L 100.0100, L500.4050, L500.4100, L503.0105, L506.1000, L506.0250 ####[facility] [address] [place], [address] T PROT 7.2 g/dL Normal 6.4-8.2 [facility] Comment on above: Performed By: #### L 100.0100, L500.4050, L500.4100, L503.0105, L506.1000, L506.0250 ####[facility] [address] [place], [address] Urea nitrogen [Mass/Vol] 11 mg/dL Normal 7-18 [facility] Comment on above: Performed By: #### L 100.0100, L500.4050, L500.4100, L503.0105, L506.1000, L506.0250 ####[facility] [address] [place], [address] Eosinophil percentageOrdered By: Rajat Fast on 01-17-2025 Eosinophils/100 WBC (Bld) 3.3 % 0-5 [facility] Erythrocyte distribution wid th (RBC) [Ratio]Ordered By: Rajat Fast on 01-17-2025 Erythrocyte distribution width (RBC) [Entitic vol] 45.5 fL High 35.1-43.9 [facility] Erythrocyte distribution wid th ratioOrdered By: Rajat Fast on 01-17-2025 Erythrocyte distribution width (RBC) [Ratio] 13.2 % 11.6-14.6 [facility] Erythrocyte distribution wid th standard deviationOrdered By: Rajat Fast on 01-17-2025 Erythrocyte distribution width (RBC) [Ratio] 45.5 fl High 35.1-43.9 [facility] Estimated glomerular filtrat ion rate (GFR) AmericanOrdered By: Rajat Fast on 01-17-2025 Estimated GFR (MDRD) Amer 92 mL/min >60 [facility] Comment on above: GFR Calc Folates, (Folic Acid)on 12-30 FOLATES 19.10 ng/mL Normal 3.1-55.4 [facility] Comment on above: Order Comment: N Performed By: #### L 100.0100, L500.4050, L500.4100, L503.0105, L506.1000, L506.0250 ####[facility] [address] [place], [place], [id number] Folic acid measurementOrdere d By: Rajat Fast on 01-17-2025 Folate 19.10 ng/mL 3.1-55.4 [facility] Glomerular filtration rate ( GFR) estimationOrdered By: Rajat Fast on 01-17-2025 Estimated GFR (MDRD) Non-Af Amer 76 mL/min >60 [facility] Comment on above: Non- GFR Calc GFR/1.73 sq M.predicted among non-blacks MDRD (S/P/Bld) [Vol rate/Area] 76 mL/min/{1.73_m2} >60 [facility] Comment on above: Non- GFR Calc Glucose measurementOrdered B y: Rajat Fast on 01-17-2025 Glucose [Mass/Vol] 93 mg/dL 74-106 [facility] Hematocrit Auto (Bld) [Volum e fraction]Ordered By: Rajat Fast on 01-17-2025 Hematocrit (Bld) [Volume fraction] 41.6 % 37-47 [facility] Hemoglobin measurementOrdere d By: Rajat Fast on 01-17-2025 Hemoglobin (Bld) [Mass/Vol] 13.8 g/dL 12.0-15.0 [facility] High density lipoprotein (HD L) measurementOrdered By: Rajat Fast on 01-17-2025 Cholesterol in HDL [Mass/Vol] 93 mg/dL >40 [facility] Comment on above: The drugs N-Acetylcy steine and Metamizole may falsely depress this assay. Reference Range HDL <40 mg/dL Low HDL Cholesterol HDL >or= 60 mg/dL High HDL Cholesterol Immature granulocytes/100 WB C Auto (Bld)Ordered By: Rajat Fast on 01-17-2025 Immature granulocytes/100 WBC (Bld) 0.200 % 0.0-0.9 [facility] Comment on above: IG% - Immature Granu locytes (promyelocytes, myelocytes and metamyelocytes) > 1% indicates that a LEFT SHIFT is Present. Laboratory - Chemistry and C hemistry - challengeOrdered By: Rajat Cummins on 01-17-2025 AST [Catalytic activity/Vol] 25 U/L 15-37 [facility] Lipid Profileon 01-17-2025 Cholesterol [Mass/Vol] 211 mg/dL High 200 [facility] Comment on above: Result Comment: <200 mg/dL Desirable 200-240 mg/dL Borderline >240 mg/dL High Risk Performed By: #### L 100.0100, L500.4050, L500.4100, L503.0105, L506.1000, L506.0250 ####[facility] [address] [place], [address] Cholesterol in HDL [Mass/Vol] 93 mg/dL Normal [facility] Comment on above: Result Comment: The drugs N-Acetylcysteine and Metamizole may falsely depress this assay. Reference Range HDL <40 mg/dL Low HDL Cholesterol HDL >or= 60 mg/dL High HDL Cholesterol Performed By: #### L 100.0100, L500.4050, L500.4100, L503.0105, L506.1000, L506.0250 ####[facility] [address] [place], [address] Cholesterol in LDL [Mass/Vol] 106 mg/dL Normal 0-130 [facility] Comment on above: Performed By: #### L 100.0100, L500.4050, L500.4100, L503.0105, L506.1000, L506.0250 ####[facility] [address] [place], [address] Cholesterol in VLDL [Mass/Vol] 12 mg/dL Normal 5-40 [facility] Comment on above: Performed By: #### L 100.0100, L500.4050, L500.4100, L503.0105, L506.1000, L506.0250 ####[facility] [address] [place], [place], [id number] Triglyceride [Mass/Vol] 60 mg/dL Normal [facility] Comment on above: Result Comment: The drugs N-Acetylcysteine and Metamizole may falsely depress this assay. Serum Triglycerides Reference Interval Normal <150 mg/dL Borderline high 150 - 199 mg/dL High 200 - 499 mg/dL Very High > or = 500 mg/dL Performed By: #### L 100.0100, L500.4050, L500.4100, L503.0105, L506.1000, L506.0250 ####[facility] [address] [place], [place], [id number] Low density lipoprotein (LDL ) cholesterol measurementOrdered By: Rajat Fast on 01-17-2025 Cholesterol in LDL [Mass/Vol] 106 mg/dL 0-130 [facility] Lymphocytes Auto (Unsp spec) [#/Vol]Ordered By: Rajat Fast on 01-17-2025 Lymphocytes (Bld) [#/Vol] 1.18 10*3/uL 0.83-4.51 [facility] Lymphocytes/100 WBC Auto (Un sp spec)Ordered By: Rajat Fast on 01-17-2025 Lymphocytes/100 WBC (Bld) 25.7 % 19-41 [facility] MCV (mean corpuscular volume ) determinationOrdered By: Rajat Fast on 01-17-2025 MCV (RBC) [Entitic vol] 93.9 fL 81-99 [facility] Mean corpuscular hemoglobin (MCH) determinationOrdered By: Rajat Fast on 01-17-2025 MCH (RBC) [Entitic mass] 31.2 pg 27.0-32.0 [facility] Mean corpuscular hemoglobin concentration (MCHC) determinationOrdered By: Rajat Fast on 01-17-2025 MCHC (RBC) [Mass/Vol] 33.2 g/dL 32-36 [facility] Mean platelet volume determi nationOrdered By: Rajat Fast on 01-17-2025 Platelet mean volume (Bld) [Entitic vol] 8.8 fL 6.2-12.0 [facility] Monocyte percentageOrdered B y: on 01-17-2025 Monocytes/100 WBC (Bld) 6.8 % 0-10 [facility] Neutrophil percentageOrdered By: Rajat Fast on 01-17-2025 Neutrophils/100 WBC (Bld) 63.1 % 47-70 [facility] Nucleated red blood cell per centageOrdered By: on 01-17-2025 Nucleated RBC/100 WBC (Bld) [Ratio] 0 % 0-5 [facility] Platelet countOrdered By: Colindres on 01-17-2025 Platelets (Bld) [#/Vol] 197 10*3/uL 150-450 [facility] Potassium measurementOrdered By: on 01-17-2025 Potassium [Moles/Vol] 4.3 mmol/L 3.5-5.1 [facility] RBC Auto (Bld) [#/Vol]Ordere d By: on 01-17-2025 RBC (Bld) [#/Vol] 4.43 10*6/uL 4.2-5.4 [facility] Serum anion gap measurementO rdered By: on 01-17-2025 Anion gap [Moles/Vol] 5 mmol/L 5-15 [facility] Serum globulin measurementOr dered By: 01-17-2025 Globulin (S) [Mass/Vol] 3.4 g/dL 2.2-4.2 [facility] Serum or plasma alanine teresa otransferase (ALT) measurementOrdered By: Rajat Fast on 01-17-2025 ALT [Catalytic activity/Vol] 23 U/L 13-56 [facility] Serum or plasma albumin peggy urement (mass/volume)Ordered By: Rajat Fast 01-17-2025 Albumin [Mass/Vol] 3.8 g/dL 3.2-5.0 [facility] Serum or plasma alkaline debbie sphatase measurementOrdered By: on 01-17-2025 ALP [Catalytic activity/Vol] 53 U/L 45-117 [facility] Serum or plasma calcium peggy urement (mass/volume)Ordered By: Rajat Fast on 01-17-2025 Calcium [Mass/Vol] 9.9 mg/dL 8.5-10.1 [facility] Serum or plasma cholesterol measurement (mass/volume)Ordered By: Rajat Fast on 01-17-2025 Cholesterol [Mass/Vol] 211 mg/dL High <200 [facility] Comment on above: <200 mg/dL Desirable 200-240 mg/dL Borderline >240 mg/dL High Risk Serum or plasma creatinine m easurement (mass/volume)Ordered By: Rajat Fast on 01-17-2025 Creatinine [Mass/Vol] 0.80 mg/dL 0.55-1.02 [facility] Comment on above: The validity of the calculated GFR & GFRAA in patients over 70 years has not been determined. Clinical correlation is essential. Serum or plasma urea nitroge n measurement (mass/volume)Ordered By: Rajat Fast on 01-17-2025 Urea nitrogen [Mass/Vol] 11 mg/dL 7-18 [facility] Sodium levelOrdered By: a Fast on 01-17-2025 Sodium [Moles/Vol] 140 mmol/L 136-145 [facility] Total proteinOrdered By: Emelia ra Fast on 01-17-2025 Protein [Mass/Vol] 7.2 g/dL 6.4-8.2 [facility] Triglycerides measurementOrd ered By: Rajat Fast on 01-17-2025 Triglyceride [Mass/Vol] 60 mg/dL <199 [facility] Comment on above: The drugs N-Acetylcy steine and Metamizole may falsely depress this assay.Serum Triglycerides Reference Interval Normal <150 mg/dL Borderline high 150 - 199 mg/dL High 200 - 499 mg/dL Very High > or = 500 mg/dL Very low density lipoprotein (VLDL) cholesterol measurementOrdered By: Rajat Fast on 01-17-2025 Very low density lipoprotein (VLDL) cholesterol measurement 12 mg/dL 5-40 [facility] VLDL Cholesterol 12 mg/dL 5-40 [facility] Vitamin B12on 01-17-2025 Cobalamin (Vitamin B12) [Mass/Vol] 702 pg/mL Normal 211-911 [facility] Comment on above: Performed By: #### L 100.0100, L500.4050, L500.4100, L503.0105, L506.1000, L506.0250 ####[facility] [address] [place], [place], [address] Vitamin B12 measurementOrder ed By: Rajat Cummins on 01-17-2025 Cobalamin (Vitamin B12) [Mass/Vol] 702 pg/mL 211-911 [facility] Vitamin D,25 Hydroxyon 01-17 Vitamin D 25-OH 54.9 ng/mL Normal [facility] Comment on above: Result Comment: Charo min D 25(OH) Status Range Deficiency <20 ng/mL (50nmol/L) Insufficiency 20 - 30 ng/mL (50 - 75 nmol/L) Sufficiency 30 - 100 ng/mL (75 - 250 nmol/L) Toxicity >100 ng/mL (>250 nmol/L) Performed By: #### L 100.0100, L500.4050, L500.4100, L503.0105, L506.1000, L506.0250 ####[facility] [address] [place], [address] White blood cell (WBC) count Ordered By: Rajat Cummins on 01-17-2025 WBC (Bld) [#/Vol] 4.6 10*3/uL 4.4-11.0 [facility] [place] 12-25-2024 [facility] Telephone ([facility]) ERIN DYSON ([id number]) 1955 F Date Time Provider Department 12/25/24 OZZIE ROBERTSON JR [facility] During your visit today, we recorded [...] Encounter Status:Closed by NOHEMY DUDLEY on 12/25/24 [facility] CNPAna 11-23-2024 CNPN Telephone ([facility]) ERIN DYSON ([id number]) 1955 F Date Time Provider Department 11/23/24 [...] nurse [place] and current EKG order in [facility] is not correct please delete and [...] Fully Assessed Reason for Visit: Patient Question [1477] Primary Visit Diagnosis:Dementia without behavioral disturbance, psychotic disturbance, mood disturbance, or anxiety, unspecified dementia severity, unspecified dementia type (HCC) [F03.90] Other Visit Diagnosis:At high risk for adverse medication event [Z91.89] Order(s):ECG INTERPRETATION AND REPORT ONLY [[id number]] Order #: [id number]: 1 ECG INTERPRETATION AND REPORT ONLY [[id number]] Order #: [id number]: 1 ECG COMPLETE [ECG01] Order #: [id number] FUTURE Prescriptions as of 11/27/2024 - memantine [...] Encounter Status:Closed by OZZIE ROBERTSON on 11/23/24 [facility] Shin 11-02-2024 CNOV Office Visit (KHARI ) ERIN DYSON ([id number]) 1955 F Date Time Provider Department 11/02/24 [...] prior history, (more content not included)... Normal [facility] Office Visit Reporton 2023 Office Visit Report [facility] [address] [place] [address] OFFICE VISIT Date of Service: 12/20/23 MR#: [id number] Acct: [id number] Patient: ERIN DYSON Rep #: [id number] : 1955 Provider: ANDRÉS Hernandez Age/Sex: 69/F Location: [facility] Status: Signed Employer Purchased Covid Test Note: Patient here today for Covid Testing, requested by their Employer. Assessment and Plan Assessment and Plan Orders: Orders POC Cepheid Covid, FluAB, RSV 12/20/23 R09.89 - Other specified symptoms and signs involving the circulatory and respiratory systems 10/08/24 1756 Date Juan BOWEN Cosigner Signature: Date (if applicable) CC: Normal [facility] CBC W/Diff, Automatedon 10-2 Absolute Lymph 1.40 X10 3/uL Normal 0.83-4.51 [facility] Comment on above: Order Comment: CANCE L WAS EMPH COVERS! Performed By: #### L 503.0105, L506.0250, L506.1000, L500.4050, L100.0100, L500.4100 #### [facility] [address] [place], [address] Absolute Neut 2.6 X10 3/uL Normal 2.0-7.7 [facility] Comment on above: Order Comment: CANCE L WAS EMPH COVERS! Performed By: #### L 503.0105, L506.0250, L506.1000, L500.4050, L100.0100, L500.4100 #### [facility] [address] [place], [address] Basophils/100 WBC (Bld) 0.9 % Normal 0-1 [facility] Comment on above: Order Comment: CANCE L WAS EMPH COVERS! Performed By: #### L 503.0105, L506.0250, L506.1000, L500.4050, L100.0100, L500.4100 #### [facility] [address] [place], [address] Eosinophils/100 WBC (Bld) 3.6 % Normal 0-5 [facility] Comment on above: Order Comment: CANCE L WAS EMPH COVERS! Performed By: #### L 503.0105, L506.0250, L506.1000, L500.4050, L100.0100, L500.4100 #### [facility] [address] [place], [address] Erythrocyte distribution width (RBC) [Ratio] 12.5 % Normal 11.6-14.6 [facility] Comment on above: Order Comment: CANCE L WAS EMPH COVERS! Performed By: #### L 503.0105, L506.0250, L506.1000, L500.4050, L100.0100, L500.4100 #### [facility] [address] [place], [address] Hematocrit (Bld) [Volume fraction] 41.2 % Normal 37-47 [facility] Comment on above: Order Comment: CANCE L WAS EMPH COVERS! Performed By: #### L 503.0105, L506.0250, L506.1000, L500.4050, L100.0100, L500.4100 #### [facility] [address] [place], [address] Hemoglobin (Bld) [Mass/Vol] 13.8 g/dL Normal 12.0-15.0 [facility] Comment on above: Order Comment: CANCE L WAS EMPH COVERS! Performed By: #### L 503.0105, L506.0250, L506.1000, L500.4050, L100.0100, L500.4100 #### [facility] [address] [place], [address] IG% 0.200 Normal 0.0-0.9 [facility] Comment on above: Order Comment: MATILDACE L WAS EMPH COVERS! Result Comment: IG% - Immature Granulocytes (promyelocytes, myelocytes and metamyelocytes) > 1% indicates that a LEFT SHIFT is Present. Performed By: #### L 503.0105, L506.0250, L506.1000, L500.4050, L100.0100, L500.4100 #### [facility] [address] [place], [address] Lymphocytes/100 WBC (Bld) 31.5 % Normal 19-41 [facility] Comment on above: Order Comment: CANCE L WAS EMPH COVERS! Performed By: #### L 503.0105, L506.0250, L506.1000, L500.4050, L100.0100, L500.4100 #### [facility] [address] [place], [address] MCH (RBC) [Entitic mass] 31.0 pg Normal 27.0-32.0 [facility] Comment on above: Order Comment: CANCE L WAS EMPH COVERS! Performed By: #### L 503.0105, L506.0250, L506.1000, L500.4050, L100.0100, L500.4100 #### [facility] [address] [place], [address] MCHC (RBC) [Mass/Vol] 33.5 g/dL Normal 32-36 [facility] Comment on above: Order Comment: CANCE L WAS EMPH COVERS! Performed By: #### L 503.0105, L506.0250, L506.1000, L500.4050, L100.0100, L500.4100 #### [facility] [address] [place], [address] MCV (RBC) [Entitic vol] 92.6 fL Normal 81-99 [facility] Comment on above: Order Comment: CANCE L WAS EMPH COVERS! Performed By: #### L 503.0105, L506.0250, L506.1000, L500.4050, L100.0100, L500.4100 #### [facility] [address] [place], [address] Monocytes/100 WBC (Bld) 6.3 % Normal 0-10 [facility] Comment on above: Order Comment: CANCE L WAS EMPH COVERS! Performed By: #### L 503.0105, L506.0250, L506.1000, L500.4050, L100.0100, L500.4100 #### [facility] [address] [place], [address] Neutrophils/100 WBC (Bld) 57.5 % Normal 47-70 [facility] Comment on above: Order Comment: CANCE L WAS EMPH COVERS! Performed By: #### L 503.0105, L506.0250, L506.1000, L500.4050, L100.0100, L500.4100 #### [facility] [address] [place], [address] Nucleated RBC (Bld) [#/Vol] 0 10*3/uL Normal 0-5 [facility] Comment on above: Order Comment: CANCE L WAS EMPH COVERS! Performed By: #### L 503.0105, L506.0250, L506.1000, L500.4050, L100.0100, L500.4100 #### [facility] [address] [place], [address] Platelet mean volume (Bld) [Entitic vol] 8.9 fL Normal 6.2-12.0 [facility] Comment on above: Order Comment: CANCE L WAS EMPH COVERS! Performed By: #### L 503.0105, L506.0250, L506.1000, L500.4050, L100.0100, L500.4100 #### [facility] [address] [place], [address] Platelets (Bld) [#/Vol] 204 10*3/uL Normal 150-450 [facility] Comment on above: Order Comment: CANCE L WAS EMPH COVERS! Performed By: #### L 503.0105, L506.0250, L506.1000, L500.4050, L100.0100, L500.4100 #### [facility] [address] [place], [address] RBC (Bld) [#/Vol] 4.45 10*6/uL Normal 4.2-5.4 [facility] Comment on above: Order Comment: CANCE L WAS EMPH COVERS! Performed By: #### L 503.0105, L506.0250, L506.1000, L500.4050, L100.0100, L500.4100 #### [facility] [address] [place], [address] RDW SD 42.6 fl Normal 35.1-43.9 [facility] Comment on above: Order Comment: CANCE L WAS EMPH COVERS! Performed By: #### L 503.0105, L506.0250, L506.1000, L500.4050, L100.0100, L500.4100 #### [facility] [address] [place], [address] WBC (Bld) [#/Vol] 4.4 10*3/uL Normal 4.4-11.0 [facility] Comment on above: Order Comment: CANCE L WAS EMPH COVERS! Performed By: #### L 503.0105, L506.0250, L506.1000, L500.4050, L100.0100, L500.4100 #### [facility] [address] [place], [address] CBC, Employeeon 09-20-2024 Absolute Lymph 1.30 X10 3/uL Normal 0.83-4.51 [facility] Comment on above: Performed By: #### L 500.2900, L100.0200 ####[facility] [address] [place], [address] Absolute Neut 2.4 X10 3/uL Normal 2.0-7.7 [facility] Comment on above: Performed By: #### L 500.2900, L100.0200 ####[facility] [address] [place], [address] Basophils/100 WBC (Bld) 0.9 % Normal 0-1 [facility] Comment on above: Performed By: #### L 500.2900, L100.0200 ####[facility] [address] [place], [address] Eosinophils/100 WBC (Bld) 3.8 % Normal 0-5 [facility] Comment on above: Performed By: #### L 500.2900, L100.0200 ####[facility] [address] [place], [address] Erythrocyte distribution width (RBC) [Ratio] 12.6 % Normal 11.6-14.6 [facility] Comment on above: Performed By: #### L 500.2900, L100.0200 ####[facility] [address] [place], [address] Hematocrit (Bld) [Volume fraction] 40.7 % Normal 37-47 [facility] Comment on above: Performed By: #### L 500.2900, L100.0200 ####[facility] [address] [place], [address] Hemoglobin (Bld) [Mass/Vol] 13.6 g/dL Normal 12.0-15.0 [facility] Comment on above: Performed By: #### L 500.2900, L100.0200 ####[facility] [address] [place], [address] Lymphocytes/100 WBC (Bld) 30.7 % Normal 19-41 [facility] Comment on above: Performed By: #### L 500.2900, L100.0200 ####[facility] [address] [place], [address] MCH (RBC) [Entitic mass] 30.9 pg Normal 27.0-32.0 [facility] Comment on above: Performed By: #### L 500.2900, L100.0200 ####[facility] [address] [place], [address] MCHC (RBC) [Mass/Vol] 33.4 g/dL Normal 32-36 [facility] Comment on above: Performed By: #### L 500.2900, L100.0200 ####[facility] [address] [place], [address] MCV (RBC) [Entitic vol] 92.5 fL Normal 81-99 [facility] Comment on above: Performed By: #### L 500.2900, L100.0200 ####[facility] [address] [place], [address] Monocytes/100 WBC (Bld) 7.1 % Normal 0-10 [facility] Comment on above: Performed By: #### L 500.2900, L100.0200 ####[facility] [address] [place], [address] Neutrophils/100 WBC (Bld) 57.0 % Normal 47-70 [facility] Comment on above: Performed By: #### L 500.2900, L100.0200 ####[facility] [address] [place], [address] NRBC # 0.00 10 3/uL Normal 0-5 [facility] Comment on above: Performed By: #### L 500.2900, L100.0200 ####[facility] [address] [place], [address] Nucleated RBC (Bld) [#/Vol] 0 10*3/uL Normal 0-5 [facility] Comment on above: Performed By: #### L 500.2900, L100.0200 ####[facility] [address] [place], [address] Platelet mean volume (Bld) [Entitic vol] 8.9 fL Normal 6.2-12.0 [facility] Comment on above: Performed By: #### L 500.2900, L100.0200 ####[facility] [address] [place], [address] Platelets (Bld) [#/Vol] 204 10*3/uL Normal 150-450 [facility] Comment on above: Performed By: #### L 500.2900, L100.0200 ####[facility] [address] [place], [address] RBC (Bld) [#/Vol] 4.40 10*6/uL Normal 4.2-5.4 [facility] Comment on above: Performed By: #### L 500.2900, L100.0200 ####[facility] [address] [place], [address] RDW SD 43.4 fl Normal 35.1-43.9 [facility] Comment on above: Performed By: #### L 500.2900, L100.0200 ####[facility] [address] [place], [address] WBC (Bld) [#/Vol] 4.2 10*3/uL Low 4.4-11.0 [facility] Comment on above: Performed By: #### L 500.2900, L100.0200 ####[facility] [address] [place], [address] Comprehensive Metabolic Prof ilon 09-20-2024 Albumin [Mass/Vol] 4.0 g/dL Normal 3.2-5.0 [facility] Comment on above: Order Comment: PLEAS E ADD A LIPID THAT WAS MISSED FROM THIS MORNINGCANCEL WAS EMPH COVERS!LIPIDN Performed By: #### L 503.0105, L506.0250, L506.1000, L500.4050, L100.0100, L500.4100 ####[facility] [address] [place], [address] Albumin/Globulin [Mass ratio] 1.1 {ratio} Normal 0.9-2.4 [facility] Comment on above: Order Comment: PLEAS E ADD A LIPID THAT WAS MISSED FROM THIS MORNINGCANCEL WAS EMPH COVERS!LIPIDN Performed By: #### L 503.0105, L506.0250, L506.1000, L500.4050, L100.0100, L500.4100 ####[facility] [address] [place], [address] ALK P 60 U/L Normal 45-117 [facility] Comment on above: Order Comment: PLEAS E ADD A LIPID THAT WAS MISSED FROM THIS MORNINGCANCEL WAS EMPH COVERS!LIPIDN Performed By: #### L 503.0105, L506.0250, L506.1000, L500.4050, L100.0100, L500.4100 ####[facility] [address] [place], [address] ALT [Catalytic activity/Vol] 23 U/L Normal 13-56 [facility] Comment on above: Order Comment: PLEAS E ADD A LIPID THAT WAS MISSED FROM THIS MORNINGCANCEL WAS EMPH COVERS!LIPIDN Performed By: #### L 503.0105, L506.0250, L506.1000, L500.4050, L100.0100, L500.4100 ####[facility] [address] [place], [address] AST [Catalytic activity/Vol] 24 U/L Normal 15-37 [facility] Comment on above: Order Comment: PLEAS E ADD A LIPID THAT WAS MISSED FROM THIS MORNINGCANCEL WAS EMPH COVERS!LIPIDN Performed By: #### L 503.0105, L506.0250, L506.1000, L500.4050, L100.0100, L500.4100 ####[facility] [address] [place], [address] Bilirubin [Mass/Vol] 0.50 mg/dL Normal 0.20-1.00 [facility] Comment on above: Order Comment: PLEAS E ADD A LIPID THAT WAS MISSED FROM THIS MORNINGCANCEL WAS EMPH COVERS!LIPIDN Result Comment: For patients on eltrombopag therapy, use of Dimension [place] TBIL is not recommended. Performed By: #### L 503.0105, L506.0250, L506.1000, L500.4050, L100.0100, L500.4100 ####[facility] [address] [place], [address] BUN/CRE 18.7 RATIO Normal 10-20 [facility] Comment on above: Order Comment: PLEAS E ADD A LIPID THAT WAS MISSED FROM THIS MORNINGCANCEL WAS EMPH COVERS!LIPIDN Performed By: #### L 503.0105, L506.0250, L506.1000, L500.4050, L100.0100, L500.4100 ####[facility] [address] [place], [address] CA,Total 10.0 mg/dL Normal 8.5-10.1 [facility] Comment on above: Order Comment: PLEAS E ADD A LIPID THAT WAS MISSED FROM THIS MORNINGCANCEL WAS EMPH COVERS!LIPIDN Performed By: #### L 503.0105, L506.0250, L506.1000, L500.4050, L100.0100, L500.4100 ####[facility] [address] [place], [address] Chloride [Moles/Vol] 108 mmol/L High 98-107 [facility] Comment on above: Order Comment: PLEAS E ADD A LIPID THAT WAS MISSED FROM THIS MORNINGCANCEL WAS EMPH COVERS!LIPIDN Performed By: #### L 503.0105, L506.0250, L506.1000, L500.4050, L100.0100, L500.4100 ####[facility] [address] [place], [address] CO2 [Moles/Vol] 24.0 mmol/L Normal 21.0-32.0 [facility] Comment on above: Order Comment: PLEAS E ADD A LIPID THAT WAS MISSED FROM THIS MORNINGCANCEL WAS EMPH COVERS!LIPIDN Performed By: #### L 503.0105, L506.0250, L506.1000, L500.4050, L100.0100, L500.4100 ####[facility] [address] [place], [address] Creatinine [Mass/Vol] 0.75 mg/dL Normal 0.55-1.02 [facility] Comment on above: Order Comment: PLEAS E ADD A LIPID THAT WAS MISSED FROM THIS MORNINGCANCEL WAS EMPH COVERS!LIPIDN Result Comment: The validity of the calculated GFR GFRAA in patients over 70 years has not been determined. Clinical correlation is essential. Performed By: #### L 503.0105, L506.0250, L506.1000, L500.4050, L100.0100, L500.4100 ####[facility] [address] [place], [address] EST GFR - AA 98 mL/min Normal >60 [facility] Comment on above: Order Comment: PLEAS E ADD A LIPID THAT WAS MISSED FROM THIS MORNINGCANCEL WAS EMPH COVERS!LIPIDN Result Comment: Afri can Surinamese GFR Calc Performed By: #### L 503.0105, L506.0250, L506.1000, L500.4050, L100.0100, L500.4100 ####[facility] [address] [place], [address] GAP 6 Normal 5-15 [facility] Comment on above: Order Comment: PLEAS E ADD A LIPID THAT WAS MISSED FROM THIS MORNINGCANCEL WAS EMPH COVERS!LIPIDN Performed By: #### L 503.0105, L506.0250, L506.1000, L500.4050, L100.0100, L500.4100 ####[facility] [address] [place], [address] GFR/1.73 sq M.predicted among non-blacks MDRD (S/P/Bld) [Vol rate/Area] 81 mL/min/{1.73_m2} Normal >60 [facility] Comment on above: Order Comment: PLEAS E ADD A LIPID THAT WAS MISSED FROM THIS MORNINGCANCEL WAS EMPH COVERS!LIPIDN Result Comment: Non- GFR Calc Performed By: #### L 503.0105, L506.0250, L506.1000, L500.4050, L100.0100, L500.4100 ####[facility] [address] [place], [address] Globulin (S) [Mass/Vol] 3.5 g/dL Normal 2.2-4.2 [facility] Comment on above: Order Comment: PLEAS E ADD A LIPID THAT WAS MISSED FROM THIS MORNINGCANCEL WAS EMPH COVERS!LIPIDN Performed By: #### L 503.0105, L506.0250, L506.1000, L500.4050, L100.0100, L500.4100 ####[facility] [address] [place], [address] Glucose [Mass/Vol] 102 mg/dL Normal 74-106 [facility] Comment on above: Order Comment: PLEAS E ADD A LIPID THAT WAS MISSED FROM THIS MORNINGCANCEL WAS EMPH COVERS!LIPIDN Result Comment: Fast ing Glucose result from 100 to 125 mg/dL suggests IMPAIRED HOMEOSTASIS per A.D.A. criteria. Performed By: #### L 503.0105, L506.0250, L506.1000, L500.4050, L100.0100, L500.4100 ####[facility] [address] [place], [address] Potassium [Moles/Vol] 4.0 mmol/L Normal 3.5-5.1 [facility] Comment on above: Order Comment: PLEAS E ADD A LIPID THAT WAS MISSED FROM THIS MORNINGCANCEL WAS EMPH COVERS!LIPIDN Performed By: #### L 503.0105, L506.0250, L506.1000, L500.4050, L100.0100, L500.4100 ####[facility] [address] [place], [address] Sodium [Moles/Vol] 138 mmol/L Normal 136-145 [facility] Comment on above: Order Comment: PLEAS E ADD A LIPID THAT WAS MISSED FROM THIS MORNINGCANCEL WAS EMPH COVERS!LIPIDN Performed By: #### L 503.0105, L506.0250, L506.1000, L500.4050, L100.0100, L500.4100 ####[facility] [address] [place], [address] T PROT 7.5 g/dL Normal 6.4-8.2 [facility] Comment on above: Order Comment: PLEAS E ADD A LIPID THAT WAS MISSED FROM THIS MORNINGCANCEL WAS EMPH COVERS!LIPIDN Performed By: #### L 503.0105, L506.0250, L506.1000, L500.4050, L100.0100, L500.4100 ####[facility] [address] [place], [address] Urea nitrogen [Mass/Vol] 14 mg/dL Normal 7-18 [facility] Comment on above: Order Comment: PLEAS E ADD A LIPID THAT WAS MISSED FROM THIS MORNINGCANCEL WAS EMPH COVERS!LIPIDN Performed By: #### L 503.0105, L506.0250, L506.1000, L500.4050, L100.0100, L500.4100 ####[facility] [address] [place], [address] [employer] 4 Albumin [Mass/Vol] 4.0 g/dL Normal 3.2-5.0 [facility] Comment on above: Performed By: #### L 500.2900, L100.0200 ####[facility] [address] [place], [address] Albumin/Globulin [Mass ratio] 1.1 {ratio} Normal 0.9-2.4 [facility] Comment on above: Performed By: #### L 500.2900, L100.0200 ####[facility] [address] [place], [address] ALK P 60 U/L Normal 45-117 [facility] Comment on above: Performed By: #### L 500.2900, L100.0200 ####[facility] [address] [place], [address] ALT [Catalytic activity/Vol] 22 U/L Normal 13-56 [facility] Comment on above: Performed By: #### L 500.2900, L100.0200 ####[facility] [address] [place], [address] AST [Catalytic activity/Vol] 24 U/L Normal 15-37 [facility] Comment on above: Performed By: #### L 500.2900, L100.0200 ####[facility] [address] [place], [address] Bilirubin [Mass/Vol] 0.50 mg/dL Normal 0.20-1.00 [facility] Comment on above: Result Comment: For patients on eltrombopag therapy, use of Dimension [place] TBIL is not recommended. Performed By: #### L 500.2900, L100.0200 ####[facility] [address] [place], [address] Bilirubin.direct [Mass/Vol] 0.15 mg/dL Normal 0.00-0.30 [facility] Comment on above: Performed By: #### L 500.2900, L100.0200 ####[facility] [address] [place], [address] BUN/CRE 20.4 RATIO High 10-20 [facility] Comment on above: Performed By: #### L 500.2900, L100.0200 ####[facility] [address] [place], [address] CA,Total 10.1 mg/dL Normal 8.5-10.1 [facility] Comment on above: Performed By: #### L 500.2900, L100.0200 ####[facility] [address] [place], [address] Chloride [Moles/Vol] 108 mmol/L High 98-107 [facility] Comment on above: Performed By: #### L 500.2900, L100.0200 ####[facility] [address] [place], [address] CHOL:HDL 2.20 Normal [facility] Comment on above: Performed By: #### L 500.2900, L100.0200 ####[facility] [address] [place], [address] Cholesterol [Mass/Vol] 213 mg/dL High 200 [facility] Comment on above: Result Comment: <200 mg/dL Desirable 200-240 mg/dL Borderline >240 mg/dL High Risk Performed By: #### L 500.2900, L100.0200 ####[facility] [address] [place], [address] Cholesterol in HDL [Mass/Vol] 95 mg/dL Normal [facility] Comment on above: Result Comment: The drugs N-Acetylcysteine and Metamizole may falsely depress this assay. Reference Range HDL <40 mg/dL Low HDL Cholesterol HDL >or= 60 mg/dL High HDL Cholesterol Performed By: #### L 500.2900, L100.0200 ####[facility] [address] [place], [address] Cholesterol in LDL [Mass/Vol] 109 mg/dL Normal 0-130 [facility] Comment on above: Performed By: #### L 500.2900, L100.0200 ####[facility] [address] [place], [address] Cholesterol in VLDL [Mass/Vol] 9 mg/dL Normal 5-40 [facility] Comment on above: Performed By: #### L 500.2900, L100.0200 ####[facility] [address] [place], [address] CO2 [Moles/Vol] 26.0 mmol/L Normal 21.0-32.0 [facility] Comment on above: Performed By: #### L 500.2900, L100.0200 ####[facility] [address] [place], [address] Creatinine [Mass/Vol] 0.74 mg/dL Normal 0.55-1.02 [facility] Comment on above: Result Comment: The validity of the calculated GFR GFRAA in patients over 70 years has not been determined. Clinical correlation is essential. Performed By: #### L 500.2900, L100.0200 ####[facility] [address] [place], [address] EST GFR - AA 100 mL/min Normal >60 [facility] Comment on above: Result Comment: Afri can [place] GFR Calc Performed By: #### L 500.2900, L100.0200 ####[facility] [address] [place], [address] GAP 3 Low 5-15 [facility] Comment on above: Performed By: #### L 500.2900, L100.0200 ####[facility] [address] [place], [address] GFR/1.73 sq M.predicted among non-blacks MDRD (S/P/Bld) [Vol rate/Area] 83 mL/min/{1.73_m2} Normal >60 [facility] Comment on above: Result Comment: Non- GFR Calc Performed By: #### L 500.2900, L100.0200 ####[facility] [address] [place], [address] Globulin (S) [Mass/Vol] 3.5 g/dL Normal 2.2-4.2 [facility] Comment on above: Performed By: #### L 500.2900, L100.0200 ####[facility] [address] [place], [address] Glucose [Mass/Vol] 102 mg/dL Normal 74-106 [facility] Comment on above: Result Comment: Fast ing Glucose result from 100 to 125 mg/dL suggests IMPAIRED HOMEOSTASIS per A.D.A. criteria. Performed By: #### L 500.2900, L100.0200 ####[facility] [address] [place], [address] LDH 100 U/L Normal 84-246 [facility] Comment on above: Performed By: #### L 500.2900, L100.0200 ####[facility] [address] [place], [address] Phosphate [Mass/Vol] 2.9 mg/dL Normal 2.5-4.9 [facility] Comment on above: Performed By: #### L 500.2900, L100.0200 ####[facility] [address] [place], [address] Potassium [Moles/Vol] 4.0 mmol/L Normal 3.5-5.1 [facility] Comment on above: Performed By: #### L 500.2900, L100.0200 ####[facility] [address] [place], [address] Sodium [Moles/Vol] 137 mmol/L Normal 136-145 [facility] Comment on above: Performed By: #### L 500.2900, L100.0200 ####[facility] [address] [place], [address] T PROT 7.5 g/dL Normal 6.4-8.2 [facility] Comment on above: Performed By: #### L 500.2900, L100.0200 ####[facility] [address] [place], [address] Triglyceride [Mass/Vol] 43 mg/dL Normal [facility] Comment on above: Result Comment: The drugs N-Acetylcysteine and Metamizole may falsely depress this assay. Serum Triglycerides Reference Interval Normal <150 mg/dL Borderline high 150 - 199 mg/dL High 200 - 499 mg/dL Very High > or = 500 mg/dL Performed By: #### L 500.2900, L100.0200 ####[facility] [address] [place], [address] Urea nitrogen [Mass/Vol] 15 mg/dL Normal 7-18 [facility] Comment on above: Performed By: #### L 500.2900, L100.0200 ####[facility] [facility] [address] [place], [address] URIC 3.8 mg/dL Normal 2.6-6.0 [facility] Comment on above: Result Comment: The drugs N-Acetylcysteine and Metamizole may falsely depress this assay. Performed By: #### L 500.2900, L100.0200 ####[facility] [address] [place], [address] Folates, (Folic Acid)on 08-29 FOLATES 14.20 ng/mL Normal 3.1-55.4 [facility] Comment on above: Order Comment: PLEAS E ADD A LIPID THAT WAS MISSED FROM THIS MORNINGCANCEL WAS EMPH COVERS!LIPIDN Performed By: #### L 503.0105, L506.0250, L506.1000, L500.4050, L100.0100, L500.4100 ####[facility] [address] [place], [address] Lipid Profileon 09-20-2024 Cholesterol [Mass/Vol] 208 mg/dL High 200 [facility] Comment on above: Order Comment: PLEAS E ADD A LIPID THAT WAS MISSED FROM THIS MORNINGCANCEL WAS EMPH COVERS!LIPIDN Result Comment: <200 mg/dL Desirable 200-240 mg/dL Borderline >240 mg/dL High Risk Performed By: #### L 503.0105, L506.0250, L506.1000, L500.4050, L100.0100, L500.4100 ####[facility] [address] [place], [address] Cholesterol in HDL [Mass/Vol] 93 mg/dL Normal [facility] Comment on above: Order Comment: PLEAS E ADD A LIPID THAT WAS MISSED FROM THIS MORNINGCANCEL WAS EMPH COVERS!LIPIDN Result Comment: The drugs N-Acetylcysteine and Metamizole may falsely depress this assay. Reference Range HDL <40 mg/dL Low HDL Cholesterol HDL >or= 60 mg/dL High HDL Cholesterol Performed By: #### L 503.0105, L506.0250, L506.1000, L500.4050, L100.0100, L500.4100 ####[facility] [address] [place], [address] Cholesterol in LDL [Mass/Vol] 106 mg/dL Normal 0-130 [facility] Comment on above: Order Comment: PLEAS E ADD A LIPID THAT WAS MISSED FROM THIS MORNINGCANCEL WAS EMPH COVERS!LIPIDN Performed By: #### L 503.0105, L506.0250, L506.1000, L500.4050, L100.0100, L500.4100 ####[facility] [address] [place], [address] Cholesterol in VLDL [Mass/Vol] 9 mg/dL Normal 5-40 [facility] Comment on above: Order Comment: PLEAS E ADD A LIPID THAT WAS MISSED FROM THIS MORNINGCANCEL WAS EMPH COVERS!LIPIDN Performed By: #### L 503.0105, L506.0250, L506.1000, L500.4050, L100.0100, L500.4100 ####[facility] [address] [place], [address] Triglyceride [Mass/Vol] 47 mg/dL Normal [facility] Comment on above: Order Comment: PLEAS E ADD A LIPID THAT WAS MISSED FROM THIS MORNINGCANCEL WAS EMPH COVERS!LIPIDN Result Comment: The drugs N-Acetylcysteine and Metamizole may falsely depress this assay. Serum Triglycerides Reference Interval Normal <150 mg/dL Borderline high 150 - 199 mg/dL High 200 - 499 mg/dL Very High > or = 500 mg/dL Performed By: #### L 503.0105, L506.0250, L506.1000, L500.4050, L100.0100, L500.4100 ####[facility] [id number] [place], [address] Vitamin B12on 4 Cobalamin (Vitamin B12) [Mass/Vol] 466 pg/mL Normal 211-911 [facility] Comment on above: Order Comment: GABRIEL Garcia WAS EMPH COVERS! Performed By: #### L 503.0105, L506.0250, L506.1000, L500.4050, L100.0100, L500.4100 #### [facility] [address] [place], [address] Vitamin D,25 Hydroxyon 09-20 Vitamin D 25-OH 44.3 ng/mL Normal [facility] Comment on above: Order Comment: GABRIEL Garcia WAS EMPH COVERS! Result Comment: Charo min D 25(OH) Status Range Deficiency <20 ng/mL (50nmol/L) Insufficiency 20 - 30 ng/mL (50 - 75 nmol/L) Sufficiency 30 - 100 ng/mL (75 - 250 nmol/L) Toxicity >100 ng/mL (>250 nmol/L) Performed By: #### L 503.0105, L506.0250, L506.1000, L500.4050, L100.0100, L500.4100 #### [facility] [address] [facility] [place], [address] Coronary Angiography CTon Coronary Angiography CT [facility] Imaging Services [address] [place] [address] 07/31/24 0629 MR#: [id number] Acct: [id number] Name: ERIN DYSON APOLLO Rep #: [id number] : 1955 68 From: Phillip Borrego MD PCP: Dr. Rajat Cummins, Status:REG CLI Y Location: CT Calcium Scoring [...] CC: Dr. Phillip Borrego MD; Dr. Rajat Cummins DO Signed Normal [facility] Limited Chest CT Cardiac Onl yon 07-24-[address] Cardiac Only [facility] Imaging Services [address] [place] [id number] Cardiac Only MR#: [id number] Acct: [id number] Name: ERIN DYSON Rep #: [id number] : 1955 F 68 From: Rafal rosas MD PCP: Dr. Rajat Cummins DO Status: REG CL Study: Limited Chest CT Cardiac Only Date of Exam: Exam# [id number] Ordering Dr: Rajat Cummins DO [id number] STUDY: CT CHEST WITHOUT CONTRAST REASON FOR [...] Rafal Dos Santos MD at 15:04 EDT , CC: Dr. Rajat Cummins DO Potato Inspector: Signed Normal [facility] Upper Ext Joint Only(Routine )on 07-05-2024 Upper Ext Joint Only(Routine) [facility] Imaging Services [address] [place] [address] Upper Ext Joint Only(Routine) MR#: [id number] Acct: [id number] Name: ERIN DYSON APOLLO Rep #: [id number] : 1955 F 68 From: Sky Mejia MD PCP: Dr. Rajat uCmmins DO Status: REG CLI Study: Upper Ext Joint Only(Routine) Date of Exam: 0 07/05/24 Exam# [id number] Ordering Dr: Rajat Cummins DO [id number] STUDY: MRI LEFT SHOULDER REASON FOR EXAM: [...] at 15:01 EDT , CC: Dr. Rajat Cummins DO Potato Inspector: Signed Normal [facility] Absolute lymphocyte countOrd ered By: HEALTH ASSESSMENT on 03-22-2024 Lymphocytes Auto (Unsp spec) [#/Vol] 1.40 10*3/uL 0.83-4.51 [facility] Basophil percentageOrdered B y: HEALTH ASSESSMENT on 03-22-2024 Basophil percentage 2.8 mg/dL 2.5-4.9 [facility] Bilirubin [Mass/Vol] 0.60 mg/dL 0.20-1.00 [facility] Comment on above: For patients on eltr ombopag therapy, use of Dimension [place] TBIL is not recommended. Chloride [Moles/Vol] 104 mmol/L 98-107 [facility] Cholesterol [Mass/Vol] 230 mg/dL <200 [facility] Comment on above: <200 mg/dL Desirable 200-240 mg/dL Borderline >240 mg/dL High Risk Glucose [Mass/Vol] 89 mg/dL 74-106 [facility] Hemoglobin (Bld) [Mass/Vol] 13.5 g/dL 12.0-15.0 [facility] LDH [Catalytic activity/Vol] 103 U/L 84-246 [facility] Neutrophils (Bld) [#/Vol] 2.3 10*3/uL 2.0-7.7 [facility] Potassium [Moles/Vol] 3.9 mmol/L 3.5-5.1 [facility] Protein [Mass/Vol] 7.4 g/dL 6.4-8.2 [facility] Sodium [Moles/Vol] 139 mmol/L 136-145 [facility] Triglyceride [Mass/Vol] 47 mg/dL <199 [facility] Comment on above: The drugs N-Acetylcy steine and Metamizole may falsely depress this assay.Serum Triglycerides Reference Interval Normal <150 mg/dL Borderline high 150 - 199 mg/dL High 200 - 499 mg/dL Very High > or = 500 mg/dL WBC (Bld) [#/Vol] 4.1 10*3/uL 4.4-11.0 [facility] Bilirubin Test strip Ql (U)O rdered By: HEALTH ASSESSMENT on 03-22-2024 Bilirubin Ql (U) Negative Negative [facility] Blood band neutrophil count as percentage of total leukocytesOrdered By: HEALTH ASSESSMENT on 03-22-2024 Band form neutrophils/100 WBC (Bld) 54.4 % 47-70 [facility] Determination of erythrocyte mean corpuscular volume (MCV)Ordered By: HEALTH ASSESSMENT on 03-22-2024 MCV (RBC) [Entitic vol] 94.7 fL 81-99 [facility] Direct bilirubinOrdered By: HEALTH ASSESSMENT on 03-22-2024 Bilirubin.direct [Mass/Vol] 0.15 mg/dL 0.00-0.30 [facility] Erythrocyte distribution wid th ratioOrdered By: HEALTH ASSESSMENT on 03-22-2024 Erythrocyte distribution width (RBC) [Ratio] 12.6 % 11.6-14.6 [facility] Erythrocyte distribution wid th standard deviationOrdered By: HEALTH ASSESSMENT on 03-22-2024 Erythrocyte distribution width (RBC) [Entitic vol] 44.2 fL 35.1-43.9 [facility] Hematocrit Auto (Bld) [Volum e fraction]Ordered By: HEALTH ASSESSMENT on 03-22-2024 Hematocrit (Bld) [Volume fraction] 41.3 % 37-47 [facility] Ketones Test strip Ql (U)Ord ered By: HEALTH ASSESSMENT on 03-22-2024 Ketones Ql (U) Negative Negative [facility] Laboratory - Chemistry and C hemistry - challengeOrdered By: HEALTH ASSESSMENT on 03-22-2024 Albumin/Globulin [Mass ratio] 1.2 {ratio} 0.9-2.4 [facility] ALP [Catalytic activity/Vol] 55 U/L 45-117 [facility] ALT [Catalytic activity/Vol] 26 U/L 13-56 [facility] Cholesterol in HDL [Mass/Vol] 93 mg/dL >40 [facility] Comment on above: The drugs N-Acetylcy steine and Metamizole may falsely depress this assay. Reference Range HDL <40 mg/dL Low HDL Cholesterol HDL >or= 60 mg/dL High HDL Cholesterol Cholesterol in LDL [Mass/Vol] 128 mg/dL 0-130 [facility] Cholesterol.total/Maggie sterol in HDL [Mass ratio] 2.50 {ratio} [facility] CO2 [Moles/Vol] 28.0 mmol/L 21.0-32.0 [facility] Globulin (S) [Mass/Vol] 3.4 g/dL 2.2-4.2 [facility] Urea nitrogen/Creatinine [Mass ratio] 19.5 mg/mg 10-20 [facility] - Chemistry and C hemistry - challengeOrdered By: Rajat Errol on 04-25-2024 Cobalamin (Vitamin B12) [Mass/Vol] 585 pg/mL 211-911 [facility] - Hematology and Cell countsOrdered By: HEALTH ASSESSMENT on 03-22-2024 MCH (RBC) [Entitic mass] 31.0 pg 27.0-32.0 [facility] MCHC (RBC) [Mass/Vol] 32.7 g/dL 32-36 [facility] Nucleated RBC (Bld) [#/Vol] 0.00 10*3/uL 0-5 [facility] Nucleated RBC/100 WBC (Bld) [Ratio] 0 % 0-5 [facility] Platelet mean volume (Bld) [Entitic vol] 9.1 fL 6.2-12.0 [facility] Platelets (Bld) [#/Vol] 224 10*3/uL 150-450 [facility] Nitrite Test strip Ql (U)Ord ered By: HEALTH ASSESSMENT on 03-22-2024 Nitrite Ql (U) Negative Negative [facility] No Panel InformationOrdered By: HEALTH ASSESSMENT on 03-22-2024 Estimated GFR (MDRD) Amer 96 mL/min >60 [facility] Comment on above: GFR Calc Estimated GFR (MDRD) Non-Af Amer 79 mL/min >60 [facility] Comment on above: Non- GFR Calc VLDL Cholesterol 9 mg/dL 5-40 [facility] No Panel InformationOrdered By: Rajat Cummins on 03-22-2024 Vitamin D 25-Hydroxy 53.6 ng/mL [facility] Comment on above: Vitamin D 25(OH) Sta tus Range Deficiency <20 ng/mL (50nmol/L) Insufficiency 20 - 30 ng/mL (50 - 75 nmol/L) Sufficiency 30 - 100 ng/mL (75 - 250 nmol/L) Toxicity >100 ng/mL (>250 nmol/L) Protein Test strip Ql (U)Ord ered By: HEALTH ASSESSMENT on 03-22-2024 Protein Ql (U) Negative Negative [facility] RBC Auto (Bld) [#/Vol]Ordere d By: HEALTH ASSESSMENT on 03-22-2024 RBC (Bld) [#/Vol] 4.36 10*6/uL 4.2-5.4 [facility] Serum or plasma calcium peggy urement (mass/volume)Ordered By: HEALTH ASSESSMENT on 03-22-2024 Calcium [Mass/Vol] 9.8 mg/dL 8.5-10.1 [facility] Serum or plasma creatinine m easurement (mass/volume)Ordered By: HEALTH ASSESSMENT on 03-22-2024 Creatinine [Mass/Vol] 0.77 mg/dL 0.55-1.02 [facility] Comment on above: The validity of the calculated GFR & GFRAA in patients over 70 years has not been determined. Clinical correlation is essential. Serum or plasma thyroid stim ulating hormone (TSH) measurement (units/volume)Ordered By: Rajat Errol on 03-22-2024 TSH Qn 2.54 uIU/mL 0.358-3.74 [facility] Serum or plasma urea nitroge n measurement (mass/volume)Ordered By: HEALTH ASSESSMENT on 03-22-2024 Urea nitrogen [Mass/Vol] 15 mg/dL 7-18 [facility] Serum or plasma uric acid me asurement (mass/volume)Ordered By: HEALTH ASSESSMENT on 03-22-2024 Urate [Mass/Vol] 3.8 mg/dL 2.6-6.0 [facility] Comment on above: The drugs N-Acetylcy steine and Metamizole may falsely depress this assay. Thin prep Papanicolaou smear with manual screeningOrdered By: HEALTH ASSESSMENT on 03-22-2024 Thin prep Papanicolaou smear with manual screening 4.0 g/dL 3.2-5.0 [facility] Thin prep Papanicolaou smear with manual screening 26 U/L 15-37 [facility] Thin prep Papanicolaou smear with manual screening 7 5-15 [facility] Urine blood detectionOrdered By: HEALTH ASSESSMENT on 03-22-2024 RBC Ql (U) Negative Negative [facility] Urine clarityOrdered By: [facility] ASSESSMENT on 03-22-2024 Clarity (U) Clear Clear [facility] Urine color determinationOrd ered By: HEALTH ASSESSMENT on 03-22-2024 Color (U) Straw Yellow [facility] Urine glucose detectionOrder ed By: HEALTH ASSESSMENT on 03-22-2024 Glucose Ql (U) Normal mg/dl Normal [facility] Urine leukocyte esterase det ection by dipstickOrdered By: HEALTH ASSESSMENT on 03-22-2024 Leukocyte esterase Test strip Ql (U) Negative Negative [facility] Urine pHOrdered By: HEALTH A SSESSMENT on 03-22-2024 pH (U) 6.5 [pH] 5.0 - 8.0 [facility] Urine specific gravity measu rementOrdered By: HEALTH ASSESSMENT on 03-22-2024 Specific gravity (U) [Rel density] 1.005 1.002-1.030 [facility] Urine urobilinogen measureme ntOrdered By: HEALTH ASSESSMENT on 03-22-2024 Urobilinogen Ql (U) Normal mg/dl Normal [facility] - Microbiology an d Antimicrobial susceptibilityon 12-20-2023 SARS-CoV-2 (COVID-19) RNA HUSSAIN+probe Ql (Unsp spec) Detected [facility] No Panel Informationon 12-20 POC Nasal Swab Influenza A,B Not detected [facility] POC Nasal Swab RSV Not detected [facility] No Panel Informationon 10-04 [facility] Absolute lymphocyte countOrd ered By: HEALTH ASSESSMENT on 09-15-2023 Lymphocytes Auto (Unsp spec) [#/Vol] 1.16 10*3/uL 0.83-4.51 [facility] Absolute reticulocyte countO rdered By: HEALTH ASSESSMENT on 09-15-2023 Reticulocytes (Bld) [#/Vol] 0.00 10*3/uL 0-5 [facility] Basophil percentageOrdered B y: HEALTH ASSESSMENT on 09-15-2023 Basophil percentage 2.8 mg/dL 2.5-4.9 [facility] Bilirubin [Mass/Vol] 0.40 mg/dL 0.20-1.00 [facility] Comment on above: For patients on eltr ombopag therapy, use of Dimension [place] TBIL is not recommended. Chloride [Moles/Vol] 104 mmol/L 98-107 [facility] Cholesterol [Mass/Vol] 210 mg/dL <200 [facility] Comment on above: <200 mg/dL Desirable 200-240 mg/dL Borderline >240 mg/dL High Risk Glucose [Mass/Vol] 98 mg/dL 74-106 [facility] LDH [Catalytic activity/Vol] 109 U/L 84-246 [facility] Neutrophils (Bld) [#/Vol] 3.9 10*3/uL 2.0-7.7 [facility] Potassium [Moles/Vol] 4.1 mmol/L 3.5-5.1 [facility] Protein [Mass/Vol] 7.2 g/dL 6.4-8.2 [facility] Sodium [Moles/Vol] 137 mmol/L 136-145 [facility] Triglyceride [Mass/Vol] 49 mg/dL <199 [facility] Comment on above: The drugs N-Acetylcy steine and Metamizole may falsely depress this assay.Serum Triglycerides Reference Interval Normal <150 mg/dL Borderline high 150 - 199 mg/dL High 200 - 499 mg/dL Very High > or = 500 mg/dL WBC (Bld) [#/Vol] 5.5 10*3/uL 4.4-11.0 [facility] Blood erythrocytes count (nu mber/volume)Ordered By: HEALTH ASSESSMENT on 09-15-2023 RBC (Bld) [#/Vol] 4.29 10*6/uL 4.2-5.4 [facility] Blood hemoglobin measurement (mass/volume)Ordered By: HEALTH ASSESSMENT on 09-15-2023 Hemoglobin (Bld) [Mass/Vol] 13.3 g/dL 12.0-15.0 [facility] Blood platelet mean volumeOr dered By: HEALTH ASSESSMENT on 09-15-2023 Platelet mean volume (Bld) [Entitic vol] 8.9 fL 6.2-12.0 [facility] Determination of erythrocyte mean corpuscular volume (MCV)Ordered By: HEALTH ASSESSMENT on 09-15-2023 MCV (RBC) [Entitic vol] 94.9 fL 81-99 [facility] Direct bilirubinOrdered By: HEALTH ASSESSMENT on 09-15-2023 Bilirubin.direct [Mass/Vol] 0.11 mg/dL 0.00-0.30 [facility] Hematocrit Auto (Bld) [Volum e fraction]Ordered By: HEALTH ASSESSMENT on 09-15-2023 Hematocrit (Bld) [Volume fraction] 40.7 % 37-47 [facility] - Chemistry and C hemistry - challengeOrdered By: HEALTH ASSESSMENT on 09-15-2023 ALP [Catalytic activity/Vol] 54 U/L 45-117 [facility] ALT [Catalytic activity/Vol] 29 U/L 13-56 [facility] Cholesterol.total/Maggie sterol in HDL [Mass ratio] 2.30 {ratio} [facility] CO2 [Moles/Vol] 28.0 mmol/L 21.0-32.0 [facility] Globulin (S) [Mass/Vol] 3.6 g/dL 2.2-4.2 [facility] Urea nitrogen/Creatinine [Mass ratio] 18.0 mg/mg 10-20 [facility] - Hematology and Cell countsOrdered By: HEALTH ASSESSMENT on 09-15-2023 Erythrocyte distribution width (RBC) [Entitic vol] 45.0 fL 35.1-43.9 [facility] Erythrocyte distribution width (RBC) [Ratio] 12.9 % 11.6-14.6 [facility] MCH (RBC) [Entitic mass] 31.0 pg 27.0-32.0 [facility] Nucleated RBC/100 WBC (Bld) [Ratio] 0 % 0-5 [facility] MCHC Auto (RBC) [Mass/Vol]Or dered By: HEALTH ASSESSMENT on 09-15-2023 MCHC (RBC) [Mass/Vol] 32.7 g/dL 32-36 [facility] No Panel InformationOrdered By: HEALTH ASSESSMENT on 09-15-2023 Estimated GFR (MDRD) Amer 87 mL/min >60 [facility] Comment on above: GFR Calc Estimated GFR (MDRD) Non-Af Amer 72 mL/min >60 [facility] Comment on above: Non- GFR Calc Platelets bldOrdered By: HEA LT ASSESSMENT on 09-15-2023 Platelets (Bld) [#/Vol] 211 10*3/uL 150-450 [facility] Segmented neutrophils/100 WB C Auto (Bld)Ordered By: HEALTH ASSESSMENT on 09-15-2023 Segmented neutrophils/100 WBC (Bld) 70.0 % 47-70 [facility] Serum or plasma albumin peggy urement (mass/volume)Ordered By: HEALTH ASSESSMENT on 09-15-2023 Albumin [Mass/Vol] 3.6 g/dL 3.2-5.0 [facility] Serum or plasma albumin/glob ulin mass ratioOrdered By: HEALTH ASSESSMENT on 09-15-2023 Albumin/Globulin [Mass ratio] 1.0 {ratio} 0.9-2.4 [facility] Serum or plasma calcium peggy urement (mass/volume)Ordered By: HEALTH ASSESSMENT on 09-15-2023 Calcium [Mass/Vol] 9.3 mg/dL 8.5-10.1 [facility] Serum or plasma cholesterol in HDL measurement (mass/volume)Ordered By: HEALTH ASSESSMENT on 09-15-2023 Cholesterol in HDL [Mass/Vol] 92 mg/dL >40 [facility] Comment on above: The drugs N-Acetylcy steine and Metamizole may falsely depress this assay. Reference Range HDL <40 mg/dL Low HDL Cholesterol HDL >or= 60 mg/dL High HDL Cholesterol Serum or plasma cholesterol in VLDL measurement (mass/volume)Ordered By: HEALTH ASSESSMENT on 09-15-2023 Cholesterol in VLDL [Mass/Vol] 10 mg/dL 5-40 [facility] Serum or plasma creatinine m easurement (mass/volume)Ordered By: HEALTH ASSESSMENT on 09-15-2023 Creatinine [Mass/Vol] 0.83 mg/dL 0.55-1.02 [facility] Comment on above: The validity of the calculated GFR & GFRAA in patients over 70 years has not been determined. Clinical correlation is essential. Serum or plasma low density lipoprotein (LDL) cholesterol measurement (mass/volume)Ordered By: HEALTH ASSESSMENT on 09-15-2023 Cholesterol in LDL [Mass/Vol] 108 mg/dL 0-130 [facility] Serum or plasma urea nitroge n measurement (mass/volume)Ordered By: HEALTH ASSESSMENT on 09-15-2023 Urea nitrogen [Mass/Vol] 15 mg/dL 7-18 [facility] Serum or plasma uric acid me asurement (mass/volume)Ordered By: [facility] ASSESSMENT on 09-15-2023 Urate [Mass/Vol] 4.1 mg/dL 2.6-6.0 [facility] Comment on above: The drugs N-Acetylcy steine and Metamizole may falsely depress this assay. Thin prep Papanicolaou smear with manual screeningOrdered By: HEALTH ASSESSMENT on 09-15-2023 Thin prep Papanicolaou smear with manual screening 23 U/L 15-37 [facility] Thin prep Papanicolaou smear with manual screening 5 5-15 [facility] Basophil percentageOrdered B y: Dr. Cummins on 01-07-2023 Bilirubin [Mass/Vol] 0.60 mg/dL 0.20-1.00 [facility] Comment on above: For patients on eltr ombopag therapy, use of Dimension [place] TBIL is not recommended. Chloride [Moles/Vol] 106 mmol/L 98-107 [facility] Cholesterol [Mass/Vol] 232 mg/dL <200 [facility] Comment on above: <200 mg/dL Desirable 200-240 mg/dL Borderline >240 mg/dL High Risk Glucose [Mass/Vol] 95 mg/dL 74-106 [facility] Potassium [Moles/Vol] 4.2 mmol/L 3.5-5.1 [facility] Protein [Mass/Vol] 7.6 g/dL 6.4-8.2 [facility] Sodium [Moles/Vol] 140 mmol/L 136-145 [facility] Triglyceride [Mass/Vol] 55 mg/dL <199 [facility] Comment on above: The drugs N-Acetylcy steine and Metamizole may falsely depress this assay.Serum Triglycerides Reference Interval Normal <150 mg/dL Borderline high 150 - 199 mg/dL High 200 - 499 mg/dL Very High > or = 500 mg/dL Laboratory - Chemistry and C hemistry - challengeOrdered By: Dr. Cummins on 01-07-2023 ALP [Catalytic activity/Vol] 50 U/L 45-117 [facility] ALT [Catalytic activity/Vol] 23 U/L 13-56 [facility] CO2 [Moles/Vol] 27.0 mmol/L 21.0-32.0 [facility] Globulin (S) [Mass/Vol] 3.6 g/dL 2.2-4.2 [facility] Urea nitrogen/Creatinine [Mass ratio] 15.2 mg/mg 10-20 [facility] No Panel InformationOrdered By: Dr. Cummins on 01-07-2023 Estimated GFR (MDRD) Amer 85 mL/min >60 [facility] Comment on above: GFR Calc Estimated GFR (MDRD) Non-Af Amer 70 mL/min >60 [facility] Comment on above: Non- GFR Calc Vitamin D 25-Hydroxy 63.4 ng/mL [facility] Comment on above: Vitamin D 25(OH) Sta tus Range Deficiency <20 ng/mL (50nmol/L) Insufficiency 20 - 30 ng/mL (50 - 75 nmol/L) Sufficiency 30 - 100 ng/mL (75 - 250 nmol/L) Toxicity >100 ng/mL (>250 nmol/L) Serum or plasma albumin peggy urement (mass/volume)Ordered By: Dr. Cummins on 01-07-2023 Albumin [Mass/Vol] 4.0 g/dL 3.2-5.0 [facility] Serum or plasma albumin/glob ulin mass ratioOrdered By: Dr. Cummins on 01-07-2023 Albumin/Globulin [Mass ratio] 1.1 {ratio} 0.9-2.4 [facility] Serum or plasma calcium peggy urement (mass/volume)Ordered By: Dr. Cummins on 01-07-2023 Calcium [Mass/Vol] 9.9 mg/dL 8.5-10.1 [facility] Serum or plasma cholesterol in HDL measurement (mass/volume)Ordered By: Dr. Cummins on 01-07-2023 Cholesterol in HDL [Mass/Vol] 103 mg/dL >40 [facility] Comment on above: The drugs N-Acetylcy steine and Metamizole may falsely depress this assay. Reference Range HDL <40 mg/dL Low HDL Cholesterol HDL >or= 60 mg/dL High HDL Cholesterol Serum or plasma cholesterol in VLDL measurement (mass/volume)Ordered By: Dr. Cummins on 01-07-2023 Cholesterol in VLDL [Mass/Vol] 11 mg/dL 5-40 [facility] Serum or plasma creatinine m easurement (mass/volume)Ordered By: Dr. Cummins on 01-07-2023 Creatinine [Mass/Vol] 0.86 mg/dL 0.55-1.02 [facility] Comment on above: The validity of the calculated GFR & GFRAA in patients over 70 years has not been determined. Clinical correlation is essential. Serum or plasma low density lipoprotein (LDL) cholesterol measurement (mass/volume)Ordered By: Dr. Cummins on 01-07-2023 Cholesterol in LDL [Mass/Vol] 118 mg/dL 0-130 [facility] Serum or plasma urea nitroge n measurement (mass/volume)Ordered By: Dr. Cummins on 01-07-2023 Urea nitrogen [Mass/Vol] 13 mg/dL 7-18 [facility] Thin prep Papanicolaou smear with manual screeningOrdered By: Dr. Cummins on 01-07-2023 Thin prep Papanicolaou smear with manual screening 26 U/L 15-37 [facility] Thin prep Papanicolaou smear with manual screening 7 5-15 [facility] CBC W/AUTO DIFF WBC (59220)O rdered By: Section Weaver on 06-25-2022 Basophils (Bld) [#/Vol] 0.0 10*3/uL Normal 0.0-0.2 [facility]; [facility] Work Phone: Comment on above: PATIENT WAS FASTINGP ERFORMED BY: FacishareUNC [facility] [id number] Information: NURSE DRAW; wellness labs for 8/12 Basophils/100 WBC (Bld) 1 % Normal C omprehensive [facility]; [facility] Work Phone: Comment on above: PATIENT WAS FASTINGP ERFORMED BY: [employer] ApplyInc.comUNC Health Lenoir [id number] Information: NURSE DRAW; wellness labs for 8/12 Eosinophils (Bld) [#/Vol] 0.1 10*3/uL Normal 0.0-0.4 [facility]; [facility] Work Phone: Comment on above: PATIENT WAS FASTINGP ERFORMED BY: [employer] ApplyInc.comUNC Health Lenoir [id number] Information: NURSE DRAW; wellness labs for 8/12 Eosinophils/100 WBC (Bld) 2 % Normal [facility]; [facility] Work Phone: Comment on above: PATIENT WAS FASTINGP ERFORMED BY: [employer] ApplyInc.comUNC Health Lenoir [id number] Information: NURSE DRAW; wellness labs for 8/12 Erythrocyte distribution width (RBC) [Ratio] 12.6 % Normal 11.7-15.4 [facility]; [facility] Work Phone: Comment on above: PATIENT WAS FASTINGP ERFORMED BY: CAMMIE [facility] Vickhq3097 [facility] [id number] Information: NURSE DRAW; wellness labs for 8 Hematocrit (Bld) [Volume fraction] 38.4 % Normal 34.0-46.6 [facility]; [facility] Work Phone: Comment on above: PATIENT WAS FASTINGP ERFORMED BY: [address] [id number] Information: NURSE DRAW; wellness labs for 8 Hemoglobin (Bld) [Mass/Vol] 13.1 g/dL Normal 11.1-15.9 [facility]; [facility] Work Phone: Comment on above: PATIENT WAS FASTINGP ERFORMED BY: [address] [id number] Information: NURSE DRAW; wellness labs for 8 Immature granulocytes (Bld) [#/Vol] 0.0 10*3/uL Normal 0.0-0.1 [facility]; [facility] Work Phone: Comment on above: PATIENT WAS FASTINGP ERFORMED BY: SriramMichelle [place] [id number] [facility] [id number] Information: NURSE DRAW; wellness labs for 8 Immature granulocytes/100 WBC (Bld) 0 % Normal [facility]; [facility] Work Phone: Comment on above: PATIENT WAS FASTINGP ERFORMED BY: [place] [id number] [facility] [id number] Information: NURSE DRAW; wellness labs for 812 Lymphocytes (Bld) [#/Vol] 1.1 10*3/uL Normal 0.7-3.1 [facility]; [facility] Work Phone: Comment on above: PATIENT WAS FASTINGP ERFORMED BY: [address] [id number] Information: NURSE DRAW; wellness labs for 07/09 Lymphocytes/100 WBC (Bld) 29 % Normal [facility]; [facility] Work Phone: Comment on above: PATIENT WAS FASTINGP ERFORMED BY: CAMMIE Mcneil6370 [facility] [id number] Information: NURSE DRAW; wellness labs for 07/09 MCH (RBC) [Entitic mass] 31.0 pg Normal 26.6-33.0 [facility]; [facility] Work Phone: Comment on above: PATIENT WAS FASTINGP ERFORMED BY: CAMMIE Johnsonlin6370 [facility] [id number] Information: NURSE DRAW; wellness labs for 07/09 MCHC (RBC) [Mass/Vol] 34.1 g/dL Normal 31.5-35.7 [facility] prehensive Internal Medicine; [facility] Work Phone: Comment on above: PATIENT WAS FASTINGP ERFORMED BY: CAMMIE Johnsonlin6370 [facility] [id number] Information: NURSE DRAW; wellness labs for 07/09 MCV (RBC) [Entitic vol] 91 fL Normal 79-97 C omprehensive [facility]; [facility] Work Phone: Comment on above: PATIENT WAS FASTINGP ERFORMED BY: CAMMIE Johnsonlin6370 [facility] [id number] Information: NURSE DRAW; wellness labs for 07/09 Monocytes (Bld) [#/Vol] 0.2 10*3/uL Normal 0.1-0.9 [facility]; [facility] Work Phone: Comment on above: PATIENT WAS FASTINGP ERFORMED BY: CAMMIE Labisabell JohnsonHkqvyo7887 [facility] [id number] Information: NURSE DRAW; wellness labs for 07/09 Monocytes/100 WBC (Bld) 6 % Normal C omprehensive [facility]; [facility] Work Phone: Comment on above: PATIENT WAS FASTINGP ERFORMED BY: CAMMIE Labisabell JohnsonCqdzfz3502 [facility] [id number] Information: NURSE DRAW; wellness labs for 812 Neutrophils (Bld) [#/Vol] 2.3 10*3/uL Normal 1.4-7.0 [facility]; [facility] Work Phone: Comment on above: PATIENT WAS FASTINGP ERFORMED BY: CAMMIE [facility]amun[facility] Hpfimq5767 [facility] [id number] Information: NURSE DRAW; wellness labs for 812 Neutrophils/100 WBC (Bld) 62 % Normal [facility]; [facility] Work Phone: Comment on above: PATIENT WAS FASTINGP ERFORMED BY: CAMMIE [facility] Blmiuv3587 [facility] [id number] Information: NURSE DRAW; wellness labs for 12 Platelets (Bld) [#/Vol] 223 10*3/uL Normal 150-450 [facility]; [facility] Work Phone: Comment on above: PATIENT WAS FASTINGP ERFORMED BY: CAMMIE [place] [id number] [facility] [id number] Information: NURSE DRAW; wellness labs for 07/09 RBC (Bld) [#/Vol] 4.23 10*6/uL Normal 3.77-5.28 Compr ehensive Internal Medicine; [facility] Work Phone: Comment on above: PATIENT WAS FASTINGP ERFORMED BY: CAMMIE [place] [id number] [facility] [id number] Information: NURSE DRAW; wellness labs for 812 WBC (Bld) [#/Vol] 3.7 10*3/uL Normal 3.4-10.8 Compre hensive Internal Medicine; [facility] Work Phone: Comment on above: PATIENT WAS FASTINGP ERFORMED BY: CAMMIE [facility]amun[facility] Anfepq7834 [facility] [id number] Information: NURSE DRAW; wellness labs for 8 METABOLIC PANEL, COMPREHENSI VE ([id number])Ordered By: Section Weaver on 06-25-2022 Albumin [Mass/Vol] 4.4 g/dL Normal 3.8-4.8 [facility]; [facility] Work Phone: Comment on above: PATIENT WAS FASTINGP ERFORMED BY: CAMMIE [facility] Jtjavd9756 Galvan RoadDublin [place] [id number] Albumin/Globulin [Mass ratio] 1.8 {ratio} Normal 1.2-2.2 [facility]; [facility] Work Phone: Comment on above: PATIENT WAS FASTINGP ERFORMED BY: CB [facility] Gyqnih5025 Galvan RoadDublin [place] [id number] ALP [Catalytic activity/Vol] 52 U/L Normal 44-121 [facility]; [facility] Work Phone: Comment on above: PATIENT WAS FASTINGP ERFORMED BY: CB [facility] Youcbz1588 Galvan RoadDublin [place] [id number] ALT [Catalytic activity/Vol] 14 U/L Normal 0-32 [facility]; [facility] Work Phone: Comment on above: PATIENT WAS FASTINGP ERFORMED BY: [facility] Yztuue5964 Gal[address] RoadDublin [place] [id number] AST [Catalytic activity/Vol] 23 U/L Normal 0-40 [facility] Internal [facility]; [facility] Work Phone: Comment on above: PATIENT WAS FASTINGP ERFORMED BY: CB [facility] Pssikn0804 Gal[address] RoadDublin [place] [id number] Bilirubin [Mass/Vol] 0.4 mg/dL Normal 0.0-1.2 [facility] Internal Medicine; [facility] Internal Medicine Work Phone: Comment on above: PATIENT WAS FASTINGP ERFORMED BY: CB [facility] Ygpvmh7998 Gal[address] RoadDublin [place] [id number] Calcium [Mass/Vol] 10.2 mg/dL Normal 8.7-10.3 [facility] Internal Medicine; [facility] Internal Medicine Work Phone: Comment on above: PATIENT WAS FASTINGP ERFORMED BY: CB [facility] Maixou4738 Galvan RoadDublin [place] [id number] Chloride [Moles/Vol] 105 mmol/L Normal 96-106 Comp rehensive Internal Medicine; [facility] Work Phone: Comment on above: PATIENT WAS FASTINGP ERFORMED BY: CAMMIE Jaja Mcneil6370 [facility] [id number] CO2 [Moles/Vol] 24 mmol/L Normal 20-29 Comprehen [facility]; [facility] Work Phone: Comment on above: PATIENT WAS FASTINGP ERFORMED BY: CAMMIE [facility] Vxgetw0838 [facility] [id number] Creatinine [Mass/Vol] 0.75 mg/dL Normal 0.57-1.00 Com prehensive Internal Medicine; [facility] Work Phone: Comment on above: PATIENT WAS FASTINGP ERFORMED BY: CAMMIE Jaja Johnsonlin6370 [facility] [id number] GFR/1.73 sq M.predicted among non-blacks MDRD (S/P/Bld) [Vol rate/Area] 87 mL/min/{1.73_m2} Normal Comprehensiv e Internal Medicine; [facility] Work Phone: Comment on above: PATIENT WAS FASTINGP ERFORMED BY: CAMMIE Jaja Mcneil6370 [facility] [id number] Globulin (S) [Mass/Vol] 2.5 g/dL Normal 1.5-4.5 [facility]; [facility] Work Phone: Comment on above: PATIENT WAS FASTINGP ERFORMED BY: CAMMIE Labfredy Dnnaxc4895 [facility] [id number] Glucose [Mass/Vol] 98 mg/dL Normal 65-99 Compre [facility] Internal Medicine; [facility] Work Phone: Comment on above: PATIENT WAS FASTINGP ERFORMED BY: CAMMIE Labcolaurita Jmkhnr8270 [facility] [id number] Potassium [Moles/Vol] 4.2 mmol/L Normal 3.5-5.2 Com prehensive Internal Medicine; [facility] Work Phone: Comment on above: PATIENT WAS FASTINGP ERFORMED BY: CAMMIE Johnsonlin6370 [address] RoadDublin [place] [id number] Protein [Mass/Vol] 6.9 g/dL Normal 6.0-8.5 [facility]; [facility] Work Phone: Comment on above: PATIENT WAS FASTINGP ERFORMED BY: CAMMIE Johnsonlin6370 [address]Dublin [place] [id number] Sodium [Moles/Vol] 143 mmol/L Normal 134-144 [facility]; [facility] Work Phone: Comment on above: PATIENT WAS FASTINGP ERFORMED BY: CAMMIE Johnsonlin6370 [address] RoadDublin [place] [id number] Urea nitrogen [Mass/Vol] 14 mg/dL Normal 8-27 [facility]; [facility] Work Phone: Comment on above: PATIENT WAS FASTINGP ERFORMED BY: CAMMIE Johnsonlin6370 [address]Dublin [place] [id number] Urea nitrogen/Creatinine [Mass ratio] 19 mg/mg Normal 12-28 [facility]; [facility] Work Phone: Comment on above: PATIENT WAS FASTINGP ERFORMED BY: CAMMIE Mcneil6370 [address]Dublin [place] [id number] URINALYSIS, W/ MICRO ([id number]) Ordered By: Section Weaver on 06-25-2022 Appearance (U) Clear Normal Comprehens ania Internal Medicine; [facility] Work Phone: Comment on above: PATIENT WAS FASTINGP ERFORMED BY: CAMMIE Labisabell JohnsonPiebqc3714 Gal[address] RoadDublin [place] [id number] Bilirubin Ql (U) Negative Normal Comprehe ive Internal Medicine; [facility] Work Phone: Comment on above: PATIENT WAS FASTINGP ERFORMED BY: CAMMIE Johnsonlin6370 [address]Dublin [place] [id number] Color (U) Yellow Normal [facility]; [facility] Work Phone: Comment on above: PATIENT WAS FASTINGP ERFORMED BY: CB [facility] Kxfkrd7731 [address] RoadDublin [place] [id number] Glucose Ql (U) Negative Normal Comprehens ania Internal Medicine; [facility] Work Phone: Comment on above: PATIENT WAS FASTINGP ERFORMED BY: CAMMIE Labfredyrp Wpdfun7178 [address] RoadDublin [place] [id number] Hemoglobin Ql (U) Negative Normal Compreh ensive Internal Medicine; [facility] Work Phone: Comment on above: PATIENT WAS FASTINGP ERFORMED BY: CAMMIE [facility] Wofjyu2186 [address] RoadDublin [place] [id number] Ketones Ql (U) Negative Normal Comprehens ania [facility]; [facility] Work Phone: Comment on above: PATIENT WAS FASTINGP ERFORMED BY: CAMMIE [facility] Wusqwy6156 [address] RoadDublin [place] [id number] Leukocyte esterase Test strip Ql (U) Trace Abnormal [facility]; [facility] Work Phone: Comment on above: PATIENT WAS FASTINGP ERFORMED BY: CAMMIE [facility] Fznyfc6613 Gal[address] RoadDublin [place] [id number] Microscopic observation LM Nom (Urine sed) See below: Normal [facility]; [facility] Work Phone: Comment on above: Microscopic was asif cated and was performed. PATIENT WAS FASTINGP ERFORMED BY: CAMMIE Labfredyrp Lsrzqo7584 Galvan RoadDublin [place] [id number] Nitrite Ql (U) Negative Normal Comprehens ania [facility]; [facility] Work Phone: Comment on above: PATIENT WAS FASTINGP ERFORMED BY: CAMMIE [facility] Epqnym8765 [address] RoadDublin [place] [id number] pH (U) 6.5 [pH] Normal 5.0-7.5 [facility]; [facility] Work Phone: Comment on above: PATIENT WAS FASTINGP ERFORMED BY: CAMMIE [facility] Hinbvh5005 Gal[address] RoadDublin [place] [id number] Protein Ql (U) Negative Normal Comprehens ania [facility]; [facility] Work Phone: Comment on above: PATIENT WAS FASTINGP ERFORMED BY: CAMMIE Santos Rcbrdj6859 [facility] [id number] Specific gravity (U) [Rel density] 1.006 1 Normal 1.005-1.030 [facility]; [facility] Work Phone: Comment on above: PATIENT WAS FASTINGP ERFORMED BY: CAMMIE Danielle Eokotx3837 [facility] [id number] Urobilinogen (U) [Mass/Vol] 0.2 mg/dL Normal 0.2-1.0 [facility]; [facility] Work Phone: Comment on above: PATIENT WAS FASTINGP ERFORMED BY: CAMMIE Jaja Johnsonlin6370 [facility] [id number] CBC WITH MANUAL DIFF ([id number]) Ordered By: Section Weaver on 06-23-2021 Basophils (Bld) [#/Vol] 0.0 10*3/uL Normal 0.0-0.2 [facility]; [facility] Work Phone: Comment on above: PATIENT NOT FASTINGP ERFORMED BY: CAMMIE Danielle Iapcis8143 [facility] [id number] Information: NURSE DRAW Basophils/100 WBC (Bld) 1 % Normal C omprehensive [facility]; [facility] Work Phone: Comment on above: PATIENT NOT FASTINGP ERFORMED BY: CAMMIE SantosSouthern Ocean Medical CenterLrrsbz7256 [facility] [id number] Information: NURSE DRAW Eosinophils (Bld) [#/Vol] 0.1 10*3/uL Normal 0.0-0.4 [facility]; [facility] Work Phone: Comment on above: PATIENT NOT FASTINGP ERFORMED BY: CAMMIE Santos Mclfsb1689 [facility] [id number] Information: NURSE DRAW Eosinophils/100 WBC (Bld) 3 % Normal [facility]; [facility] Work Phone: Comment on above: PATIENT NOT FASTINGP ERFORMED BY: CAMMIE BhatiaKelly V[place] [id number] [facility] [id number] Information: NURSE DRAW Erythrocyte distribution width (RBC) [Ratio] 12.0 % Normal 11.7-15.4 [facility]; [facility] Work Phone: Comment on above: PATIENT NOT FASTINGP ERFORMED BY: [address] [id number] Information: NURSE DRAW Hematocrit (Bld) [Volume fraction] 42.3 % Normal 34.0-46.6 [facility]; [facility] Work Phone: Comment on above: PATIENT NOT FASTINGP ERFORMED BY: Sriram[address] [id number] Information: NURSE DRAW Hemoglobin (Bld) [Mass/Vol] 14.1 g/dL Normal 11.1-15.9 [facility]; [facility] Work Phone: Comment on above: PATIENT NOT FASTINGP ERFORMED BY: [place] [id number] [facility] [id number] Information: NURSE DRAW Immature granulocytes (Bld) [#/Vol] 0.0 10*3/uL Normal 0.0-0.1 [facility]; [facility] Work Phone: Comment on above: PATIENT NOT FASTINGP ERFORMED BY: [place] [id number] [facility] [id number] Information: NURSE DRAW Immature granulocytes/100 WBC (Bld) 0 % Normal [facility]; [facility] Work Phone: Comment on above: PATIENT NOT FASTINGP ERFORMED BY: [address] [id number] Information: NURSE DRAW Lymphocytes (Bld) [#/Vol] 1.1 10*3/uL Normal 0.7-3.1 [facility]; [facility] Work Phone: Comment on above: PATIENT NOT FASTINGP ERFORMED BY: [address] [id number] Information: NURSE DRAW Lymphocytes/100 WBC (Bld) 28 % Normal [facility]; [facility] Work Phone: Comment on above: PATIENT NOT FASTINGP ERFORMED BY: CAMMIE Johnsonlin6370 [facility] [id number] Information: NURSE DRAW MCH (RBC) [Entitic mass] 30.8 pg Normal 26.6-33.0 [facility]; [facility] Work Phone: Comment on above: PATIENT NOT FASTINGP ERFORMED BY: CAMMIE Santos[address] [id number] Information: NURSE DRAW MCHC (RBC) [Mass/Vol] 33.3 g/dL Normal 31.5-35.7 [facility]; [facility] Work Phone: Comment on above: PATIENT NOT FASTINGP ERFORMED BY: CAMMIE Santos[address] [id number] Information: NURSE DRAW MCV (RBC) [Entitic vol] 92 fL Normal 79-97 C omprehensive Internal Medicine; [facility] Work Phone: Comment on above: PATIENT NOT FASTINGP ERFORMED BY: CAMMIE Johnsonlin6370 [facility] [id number] Information: NURSE DRAW Monocytes (Bld) [#/Vol] 0.2 10*3/uL Normal 0.1-0.9 [facility]; [facility] Work Phone: Comment on above: PATIENT NOT FASTINGP ERFORMED BY: CAMMIE SantosDanielle [place] [id number] [facility] [id number] Information: NURSE DRAW Monocytes/100 WBC (Bld) 6 % Normal C omprehensive [facility]; [facility] Work Phone: Comment on above: PATIENT NOT FASTINGP ERFORMED BY: CAMMIE SantosDanielle [place] [id number] [facility] [id number] Information: NURSE DRAW Neutrophils (Bld) [#/Vol] 2.4 10*3/uL Normal 1.4-7.0 [facility]; [facility] Work Phone: Comment on above: PATIENT NOT FASTINGP ERFORMED BY: CAMMIE [facility] [id number] Information: NURSE DRAW Neutrophils/100 WBC (Bld) 62 % Normal [facility]; [facility] Work Phone: Comment on above: PATIENT NOT FASTINGP ERFORMED BY: CAMMIE CortezCarondelet Health [id number] Information: NURSE DRAW Platelets (Bld) [#/Vol] 206 10*3/uL Normal 150-450 [facility]; [facility] Work Phone: Comment on above: PATIENT NOT FASTINGP ERFORMED BY: CAMMIE Johnsonlin6370 [facility] [id number] Information: NURSE DRAW RBC (Bld) [#/Vol] 4.58 10*6/uL Normal 3.77-5.28 Compr ehensive Internal Medicine; [facility] Work Phone: Comment on above: PATIENT NOT FASTINGP ERFORMED BY: CAMMIE CortezCarondelet Health [id number] Information: NURSE DRAW WBC (Bld) [#/Vol] 3.8 10*3/uL Normal 3.4-10.8 Compre hensive Internal Medicine; [facility] Work Phone: Comment on above: PATIENT NOT FASTINGP ERFORMED BY: CAMMIE Johnsonlin6370 [facility] [id number] Information: NURSE DRAW URINALYSIS ([id number])Ordered By : Section Weaver on 06-23-2021 Appearance (U) Clear Normal Comprehens ania [facility]; [facility] Work Phone: Comment on above: PATIENT NOT FASTINGP ERFORMED BY: CAMMIE Johnsonlin6370 [facility] [id number] Bilirubin Ql (U) Negative Normal Comprehe nsive Internal Medicine; [facility] Work Phone: Comment on above: PATIENT NOT FASTINGP ERFORMED BY: CAMMIE [facility] Nfbhog7598 [address] RoadDublin [place] [id number] Color (U) Yellow Normal [facility]; [facility] Work Phone: Comment on above: PATIENT NOT FASTINGP ERFORMED BY: CAMMIE [facility] Pfyqma4285 [address] RoadDublin [place] [id number] Glucose Ql (U) Negative Normal Comprehens ania [facility]; [facility] Work Phone: Comment on above: PATIENT NOT FASTINGP ERFORMED BY: CAMMIE [facility] Jvicoy0610 [address] RoadDublin [place] [id number] Hemoglobin Ql (U) Negative Normal Compreh ensive Internal Medicine; [facility] Work Phone: Comment on above: PATIENT NOT FASTINGP ERFORMED BY: CAMMIE [facility] Rsbjhu6687 [address] RoadDublin [place] [id number] Ketones Ql (U) Negative Normal Comprehens ania [facility]; [facility] Work Phone: Comment on above: PATIENT NOT FASTINGP ERFORMED BY: CAMMIE [facility] Edquat1341 [address] RoadDublin [place] [id number] Leukocyte esterase Test strip Ql (U) Negative Normal [facility]; [facility] Work Phone: Comment on above: PATIENT NOT FASTINGP ERFORMED BY: CAMMIE [facility] Akwztj2724 [address] RoadDublin [place] [id number] Microscopic observation LM Nom (Urine sed) MICNIP Normal [facility]; [facility] Work Phone: Comment on above: Microscopic not asif cated and not performed. PATIENT NOT FASTINGP ERFORMED BY: CAMMIE [facility] Qsenfz3110 [address] RoadDublin [place] [id number] Nitrite Ql (U) Negative Normal Comprehens ania [facility]; [facility] Work Phone: Comment on above: PATIENT NOT FASTINGP ERFORMED BY: CAMMIE [facility] Xnxlqp7613 [address] RoadDublin [place] [id number] pH (U) 6.5 [pH] Normal 5.0-7.5 [facility]; [facility] Work Phone: Comment on above: PATIENT NOT FASTINGP ERFORMED BY: CAMMIE [facility] Amhgaq8510 [employer] NetworkFrye Regional Medical [facility] [id number] Protein Ql (U) Negative Normal Comprehens ania [facility]; [facility] Work Phone: Comment on above: PATIENT NOT FASTINGP ERFORMED BY: CAMMIE [facility] [id number] [employer] [email or web address] Health Lenoir [id number] Specific gravity (U) [Rel density] 1.005 1 Normal 1.005-1.030 [facility] Work Phone: Comment on above: PATIENT NOT FASTINGP ERFORMED BY: CAMMIE [facility] [id number] [employer] NetworkFrye [facility] [id number] Urobilinogen (U) [Mass/Vol] 0.2 mg/dL Normal 0.2-1.0 [facility] Work Phone: Comment on above: PATIENT NOT FASTINGP ERFORMED BY: CAMMIE [facility] [id number] [employer] [email or web address] Health [facility] [id number] Vital Signs Date Time Vital Sign Value Performing Clinician Facility 06-21-2025 11:36-0400 Body weight 62.51 kg Ozzie Robertson Jr., MD Work Phone: [facility] 06-21-2025 11:36-0400 Diastolic blood pressure 82 mm[Hg] Ozzie Robertson Jr., MD Work Phone: [facility] 06-21-2025 11:36-0400 Heart rate 71 /min Ozzie Robertson Jr., MD Work Phone: [facility] 06-21-2025 11:36-0400 Respiratory rate 16 /min Ozzie Robertson Jr., MD Work Phone: [facility] 06-21-2025 11:36-0400 SaO2% (BldA) [Mass fraction] 97 % Ozzie Robertson Jr., MD Work Phone: [facility] 06-21-2025 11:36-0400 Systolic blood pressure 133 mm[Hg] Ozzie Robertson Jr., MD Work Phone: [facility] 05-20-2025 06:05-0400 Body height 165.[address] Rajat Cummins DO Work Phone: [facility] 05-20-2025 06:05-0400 Body temperature 98.1 [degF] Dr. Rajat Cummins DO Work Phone: [facility] 05-20-2025 06:05-0400 Diastolic blood pressure 60 mm[Hg] Dr. Rajat Cummins DO Work Phone: [facility] 05-20-2025 06:05-0400 Heart rate 66 /min Dr. Rajat Cummins DO Work Phone: [facility] 05-20-2025 06:05-0400 Respiratory rate 16 /min Dr. Rajat Cummins DO Work Phone: [facility] 05-20-2025 06:05-0400 SaO2% (BldA) [Mass fraction] 96 % Dr. Rajat Cummins DO Work Phone: [facility] 05-20-2025 06:05-0400 Systolic blood pressure 110 mm[Hg] Dr. Rajat Cummins DO Work Phone: [facility] 05-19-2025 11:59-0400 Body temperature 98.5 [degF] Dr. Rajat Cummins DO Work Phone: [facility] 05-19-2025 11:59-0400 Diastolic blood pressure 60 mm[Hg] Dr. Rajat Cummins DO Work Phone: [facility] 05-19-2025 11:59-0400 Heart rate 60 /min Dr. Rajat Cummins DO Work Phone: [facility] 05-19-2025 11:59-0400 Respiratory rate 14 /min Dr. Rajat Cummins DO Work Phone: [facility] 05-19-2025 11:59-0400 SaO2% (BldA) [Mass fraction] 95 % Dr. Rajat Cummins DO Work Phone: [facility] 05-19-2025 11:59-0400 Systolic blood pressure 112 mm[Hg] Dr. Rajat Cummins DO Work Phone: [facility] 04-16-2025 06:36-0400 Body temperature 98.3 [degF] Dr. Rajat Cummins DO Work Phone: [facility] 04-16-2025 06:36-0400 Diastolic blood pressure 62 mm[Hg] Dr. Rajat Cummins DO Work Phone: [facility] 04-16-2025 06:36-0400 Heart rate 67 /min Dr. Rajat Cummins DO Work Phone: [facility] 04-16-2025 06:36-0400 SaO2% (BldA) [Mass fraction] 98 % Dr. Rajat Cummins DO Work Phone: [facility] 04-16-2025 06:36-0400 Systolic blood pressure 108 mm[Hg] Dr. Rajat Cummins DO Work Phone: [facility] 02-12-2025 15:36-0400 Diastolic blood pressure 91 mm[Hg] Danni Gurrola PA-C Work Phone: [facility] 02-12-2025 15:36-0400 Heart rate 62 /min Danni Gurrola PA-C Work Phone: [facility] 02-12-2025 15:36-0400 SaO2% (BldA) [Mass fraction] 97 % Danni Gurrola PA-C Work Phone: [facility] 02-12-2025 15:36-0400 Systolic blood pressure 146 mm[Hg] Danni Gurrola PA-C Work Phone: [facility] 01-29-2025 11:44-0500 Body height 165.[address] Rajat Cummins DO Work Phone: [facility] 01-29-2025 11:44-0500 Body temperature 99.1 [degF] Dr. Rajat Fast DO Work Phone: [facility] 01-29-2025 11:44-0500 Diastolic blood pressure 92 mm[Hg] Dr. Rajat Cummins DO Work Phone: [facility] 01-29-2025 11:44-0500 Heart rate 72 /min Dr. Rajat Cummins DO Work Phone: [facility] 01-29-2025 11:44-0500 Respiratory rate 12 /min Dr. Rajat Cummins DO Work Phone: [facility] 01-29-2025 11:44-0500 SaO2% (BldA) [Mass fraction] 98 % Dr. Rajat Cummins DO Work Phone: [facility] 01-29-2025 11:44-0500 Systolic blood pressure 134 mm[Hg] Dr. Rajat Cummins DO Work Phone: [facility] 11-02-2024 15:23-0500 Body weight 64.95 kg Ozzie Robertson Jr., MD Work Phone: [facility] 11-02-2024 15:23-0500 Diastolic blood pressure 81 mm[Hg] Ozzie Robertson Jr., MD Work Phone: [facility] 11-02-2024 15:23-0500 Heart rate 95 /min Ozzie Robertson Jr., MD Work Phone: [facility] 11-02-2024 15:23-0500 SaO2% (BldA) [Mass fraction] 96 % Ozzie Robertson Jr., MD Work Phone: [facility] 11-02-2024 15:23-0500 Systolic blood pressure 125 mm[Hg] Ozzie Robertson Jr., MD Work Phone: [facility] 05-04-2024 08:34-0400 Body weight 62.32 kg Ozzie Robertson Jr., MD Work Phone: [facility] 05-04-2024 08:34-0400 Diastolic blood pressure 76 mm[Hg] Ozzie Robertson Jr., MD Work Phone: [facility] 05-04-2024 08:34-0400 Heart rate 66 /min Ozzie Robertson Jr., MD Work Phone: [facility] 05-04-2024 08:34-0400 Respiratory rate 16 /min Ozzie Robertson Jr., MD Work Phone: [facility] 05-04-2024 08:34-0400 SaO2% (BldA) [Mass fraction] 95 % Ozzie Robertson Jr., MD Work Phone: [facility] 05-04-2024 08:34-0400 Systolic blood pressure 122 mm[Hg] Ozzie Robertson Jr., MD Work Phone: [facility] 12-30-2023 09:01-0500 Body weight 62.69 kg Ozzie Robertson Jr., MD Work Phone: [facility] 12-30-2023 09:01-0500 Diastolic blood pressure 72 mm[Hg] Ozzie Robertson Jr., MD Work Phone: [facility] 12-30-2023 09:01-0500 Heart rate 78 /min Ozzie Robertson Jr., MD Work Phone: [facility] 12-30-2023 09:01-0500 Respiratory rate 16 /min Ozzie Robertson Jr., MD Work Phone: [facility] 12-30-2023 09:01-0500 SaO2% (BldA) [Mass fraction] 97 % Ozzie Robertson Jr., MD Work Phone: [facility] 12-30-2023 09:01-0500 Systolic blood pressure 124 mm[Hg] Ozzie Robertson Jr., MD Work Phone: [facility] 12-27-2023 09:58-0500 Body height 165.[address] Rajat Cummins Work Phone: [facility] 12-27-2023 09:58-0500 Body mass index (BMI) [Ratio] 22.6 kg/m2 Dr. Rajat Cummins Work Phone: [facility] 12-27-2023 09:58-0500 Body temperature 98.4 [degF] Dr. Adams Fast Work Phone: [facility] 12-27-2023 09:58-0500 Body weight 61.[address] Adams Fast Work Phone: [facility] 12-27-2023 09:58-0500 Diastolic blood pressure 86 mm[Hg] Dr. Adams Fast Work Phone: [facility] 12-27-2023 09:58-0500 Heart rate 69 /min Dr. Adams Fast Work Phone: [facility] 12-27-2023 09:58-0500 Respiratory rate 16 /min Dr. Adams Fast Work Phone: [facility] 12-27-2023 09:58-0500 SaO2% (BldA) [Mass fraction] 97 % Dr. Adams Fast Work Phone: [facility] 12-27-2023 09:58-0500 Systolic blood pressure 122 mm[Hg] Dr. Adams Fast Work Phone: [facility] 12-20-2023 15:02-0500 Body temperature 98.5 [degF] Dr. Adams Fast Work Phone: [facility] 12-20-2023 15:02-0500 Diastolic blood pressure 78 mm[Hg] Dr. Adams Fast Work Phone: [facility] 12-20-2023 15:02-0500 Heart rate 79 /min Dr. Adams Fast Work Phone: [facility] 12-20-2023 15:02-0500 Respiratory rate 12 /min Dr. Adams Fast Work Phone: [facility] 12-20-2023 15:02-0500 SaO2% (BldA) [Mass fraction] 97 % Dr. Adams Fast Work Phone: [facility] 12-20-2023 15:02-0500 Systolic blood pressure 116 mm[Hg] Dr. Rajat Cummins Work Phone: [facility] 2023 10:29-0400 Body weight 63.05 kg Ozzie Robertson Jr., MD Work Phone: [facility] 2023 10:29-0400 Diastolic blood pressure 89 mm[Hg] Ozzie Robertson Jr., MD Work Phone: [facility] 2023 10:29-0400 Heart rate 64 /min Ozzie Robertson Jr., MD Work Phone: [facility] 2023 10:29-0400 Respiratory rate 18 /min Ozzie Robertson Jr., MD Work Phone: [facility] 2023 10:29-0400 SaO2% (BldA) [Mass fraction] 96 % Ozzie Robertson Jr., MD Work Phone: [facility] 2023 10:29-0400 Systolic blood pressure 131 mm[Hg] Ozzie Robertson Jr., MD Work Phone: [facility] 07-12-2023 13:36-0400 Body height 162.56 cm [facility]; [facility] Work Phone: 07-12-2023 13:36-0400 Body mass index (BMI) [Ratio] 24.44 kg/m2 [facility]; [facility] Work Phone: 07-12-2023 13:36-0400 Body surface area Derived from formula 1.69 m2 [facility]; [facility] Work Phone: 07-12-2023 13:36-0400 Body temperature 98.7 [degF] [facility]; [facility] Work Phone: Comment on above: Method: Thermal Scan 07-12-2023 13:36-0400 Body weight 64.58 kg Tonie [facility]; [facility] Work Phone: 07-12-2023 13:36-0400 Diastolic blood pressure 78 mm[Hg] Tonie Anastasiya [facility]; [facility] Work Phone: Comment on above: Patient Position: Sitting; Cuff Location : Left Arm; Cuff Size: Standard 07-12-2023 13:36-0400 Heart rate 60 /min Tonie Anastasiya [facility]; [facility] Work Phone: Comment on above: Pattern: Regular 07-12-2023 13:36-0400 Respiratory rate 16 /min Tonie Stephaniek [facility]; [facility] Work Phone: Comment on above: Pattern: Unlabored 07-12-2023 13:36-0400 Systolic blood pressure 128 mm[Hg] Tonie Anastasiya [facility]; [facility] Work Phone: Comment on above: Patient Position: Sitting; Cuff Location : Left Arm; Cuff Size: Standard 04-20-2023 09:21-0400 Body height 167.[address] Rajat Cummins Work Phone: [facility] 03-11-2023 08:50-0400 Body temperature 98 [degF] Dr. Adams Fast Work Phone: [facility] 03-11-2023 08:50-0400 Diastolic blood pressure 74 mm[Hg] Dr. Adams Fast Work Phone: [facility] 03-11-2023 08:50-0400 Heart rate 57 /min Dr. Adams Fast Work Phone: [facility] 03-11-2023 08:50-0400 Respiratory rate 15 /min Dr. Adams Fast Work Phone: [facility] 03-11-2023 08:50-0400 SaO2% (BldA) [Mass fraction] 97 % Dr. Adams Fast Work Phone: [facility] 03-11-2023 08:50-0400 Systolic blood pressure 102 mm[Hg] Dr. Rajat Fast Work Phone: [facility] 01-11-2023 13:06-0500 Body height 162.56 cm Tonie Estivenjosephleonardo [facility]; [facility] Work Phone: 01-11-2023 13:06-0500 Body mass index (BMI) [Ratio] 24.44 kg/m2 Tonie Langford [facility]; [facility] Work Phone: 01-11-2023 13:06-0500 Body surface area Derived from formula 1.69 m2 Tonie Langford [facility]; [facility] Work Phone: 01-11-2023 13:06-0500 Body temperature 97.4 [degF] Tonie Langford [facility]; [facility] Work Phone: Comment on above: Method: Thermal Scan 01-11-2023 13:06-0500 Body weight 64.58 kg Tonie Estivenjosephleonardo [facility]; [facility] Work Phone: 01-11-2023 13:06-0500 Diastolic blood pressure 78 mm[Hg] Tonie Langford [facility]; [facility] Work Phone: Comment on above: Patient Position: Sitting; Cuff Location : Left Arm; Cuff Size: Standard 01-11-2023 13:06-0500 Heart rate 79 /min Tonie Langford [facility]; [facility] Work Phone: Comment on above: Pattern: Regular 01-11-2023 13:06-0500 Respiratory rate 16 /min Tonie Langford [facility]; [facility] Work Phone: Comment on above: Pattern: Unlabored 01-11-2023 13:06-0500 SaO2% (BldA) [Mass fraction] 96 % Tonie Langford [facility]; [facility] Work Phone: Comment on above: Room air 01-11-2023 13:06-0500 Systolic blood pressure 118 mm[Hg] Toniefercho Langford [facility]; [facility] Work Phone: Comment on above: Patient Position: Sitting; Cuff Location : Left Arm; Cuff Size: Standard 07-09-2022 07:28-0400 Body height 162.56 cm Raheem Fuentes [facility]; [facility] Work Phone: 07-09-2022 07:28-0400 Body mass index (BMI) [Ratio] 24.1 kg/m2 [facility]; [facility] Work Phone: 07-09-2022 07:28-0400 Body surface area Derived from formula 1.[address] [facility]; [facility] Work Phone: 07-09-2022 07:28-040 Body temperature 97.1 [degF] [facility]; [facility] Work Phone: 07-09-2022 07:28-0400 Body weight 63.67 kg [facility]; [facility] Work Phone: 07-09-2022 07:28-0400 Diastolic blood pressure 80 mm[Hg] [facility]; [facility] Work Phone: Comment on above: Patient Position: Sitting; Cuff Location : Left Arm; Cuff Size: Standard 07-09-2022 07:28-0400 Heart rate 55 /min [facility]; [facility] Work Phone: Comment on above: Pattern: Regular 07-09-2022 07:28-0400 Respiratory rate 16 /min [facility]; [facility] Work Phone: Comment on above: Pattern: Unlabored 07-09-2022 07:28-0400 SaO2% (BldA) [Mass fraction] 95 % [facility]; [facility] Work Phone: Comment on above: Room air 07-09-2022 07:28-0400 Systolic blood pressure 122 mm[Hg] Raheem Fuentes [facility]; [facility] Work [...] 13:33-0500 Body height 162.56 cm Tonie Langford [facility]; [facility] Work Phone: 12-29-2021 13:33-0500 Body mass index (BMI) [Ratio] 24.57 kg/m2 Tonie Langford [facility]; [facility] Work Phone: 12-29-2021 13:33-0500 Body surface area Derived from formula 1.7 m2 Tonie Langford [facility]; [facility] Work Phone: 12-29-2021 13:33-0500 Body temperature 96.9 [degF] Tonie Langford [facility]; [facility] Work Phone: Comment on above: Method: Thermal Scan 12-29-2021 13:33-0500 Body weight 64.92 kg Tonie Langford [facility]; [facility] Work Phone: 12-29-2021 13:33-0500 Diastolic blood pressure 78 mm[Hg] Tonie Langford [facility]; [facility] Work Phone: Comment on above: Patient Position: Sitting; Cuff Location : Left Arm; Cuff Size: Standard 12-29-2021 13:33-0500 Heart rate 60 /min Tonie Langford [facility]; [facility] Work Phone: Comment on above: Pattern: Regular 12-29-2021 13:33-0500 Respiratory rate 16 /min Tonie Langford [facility]; [facility] Work Phone: Comment on above: Pattern: Unlabored 12-29-2021 13:33-0500 Systolic blood pressure 120 mm[Hg] Tonie Langford [facility]; [facility] Work Phone: Comment on above: Patient Position: Sitting; Cuff Location : Left Arm; Cuff Size: Standard 07-14-2021 10:55-0400 Body height 162.56 cm Tonie Langford [facility]; [facility] Work Phone: 07-14-2021 10:55-0400 Body mass index (BMI) [Ratio] 24.05 kg/m2 Tonie Langford [facility]; [facility] Work Phone: 07-14-2021 10:55-0400 Body surface area Derived from formula 1.68 m2 Tonie Langford [facility]; [facility] Work Phone: 07-14-2021 10:55-0400 Body temperature 97.1 [degF] Tonie Langford [facility]; [facility] Work Phone: Comment on above: Method: Thermal Scan 07-14-2021 10:55-0400 Body weight 63.56 kg Tonie Langford [facility]; [facility] Work Phone: 07-14-2021 10:55-0400 Diastolic blood pressure 82 mm[Hg] Tonie Langford [facility]; [facility] Work Phone: Comment on above: Patient Position: Sitting; Cuff Location : Left Arm; Cuff Size: Standard 07-14-2021 10:55-0400 Heart rate 83 /min Tonie Langford [facility]; [facility] Work Phone: Comment on above: Pattern: Regular 07-14-2021 10:55-0400 Respiratory rate 16 /min Tonie Langford [facility]; [facility] Work Phone: Comment on above: Pattern: Unlabored 07-14-2021 10:55-0400 Systolic blood pressure 120 mm[Hg] Tonie Langford [facility]; [facility] Work Phone: Comment on above: Patient Position: Sitting; Cuff Location : Left Arm; Cuff Size: Standard 06-09-2021 08:06-0400 Body height 162.56 cm Tonie Langford [facility]; [facility] Work Phone: 06-09-2021 08:06-0400 Body mass index (BMI) [Ratio] 24.03 kg/m2 [facility]; [facility] Work Phone: 06-09-2021 08:06-0400 Body surface area Derived from formula 1.68 m2 Tonie [facility]; [facility] Work Phone: 06-09-2021 08:06-0400 Body temperature 96.9 [degF] Tonie [facility]; [facility] Work Phone: Comment on above: Method: Thermal Scan 06-09-2021 08:06-0400 Body weight 63.5 kg Tonie Langford [facility]; [facility] Work Phone: 06-09-2021 08:06-0400 Diastolic blood pressure 64 mm[Hg] Tonie Langford [facility]; [facility] Work Phone: Comment on above: Patient Position: Sitting; Cuff Location : Left Arm; Cuff Size: Standard 06-09-2021 08:06-0400 Respiratory rate 16 /min Tonie [facility]; [facility] Work Phone: Comment on above: Pattern: Unlabored 06-09-2021 08:06-0400 Systolic blood pressure 122 mm[Hg] Tonie Langford [facility]; [facility] Work Phone: Comment on above: Patient Position: Sitting; Cuff Location : Left Arm; Cuff Size: Standard 05-07-2021 07:41-0400 Body height 162.56 cm [facility]; [facility] Work Phone: 05-07-2021 07:41-0400 Body mass index (BMI) [Ratio] 24.37 kg/m2 [facility]; [facility] Work Phone: 05-07-2021 07:41-0400 Body surface area Derived from formula 1.69 m2 [facility]; [facility] Work Phone: 05-07-2021 07:41-0400 Body temperature 96.9 [degF] [facility]; [facility] Work Phone: Comment on above: Method: Thermal Scan 05-07-2021 07:41-0400 Body weight 64.41 kg [facility]; [facility] Work Phone: 05-07-2021 07:41-0400 Diastolic blood pressure 74 mm[Hg] [facility]; [facility] Work Phone: Comment on above: Patient Position: Sitting; Cuff Location : Left Arm; Cuff Size: Standard 05-07-2021 07:41-0400 Heart rate 59 /min [facility]; [facility] Work Phone: Comment on above: Pattern: Regular 05-07-2021 07:41-0400 Respiratory rate 16 /min [facility]; [facility] Work Phone: Comment on above: Pattern: Unlabored 05-07-2021 07:41-0400 SaO2% (BldA) [Mass fraction] 96 % [facility]; [facility] Work Phone: Comment on above: Room air 05-07-2021 07:41-0400 Systolic blood pressure 120 mm[Hg] [facility]; [facility] Work Phone: Comment on above: Patient Position: Sitting; Cuff Location : Left Arm; Cuff Size: Standard 12-08-2020 14:08-0500 BMI (Body Mass Index) 24.37 kg/m2 [facility]; [facility] Work Phone: 12-08-2020 14:08-0500 Body weight 64.41 kg [facility]; [facility] Work Phone: 12-08-2020 14:08-0500 BSA (Body Surface Area) 1.69 m2 [facility]; [facility] Work Phone: 12-08-2020 14:08-0500 Height 162.56 cm [facility]; [facility] Work Phone: 08-20-2020 11:39-0400 BMI (Body Mass Index) 24.37 kg/m2 Tatiana Thompson [facility] Work Phone: 08-20-2020 11:39-0400 Body Temperature 97.3 [degF] Tatiana Mckenzieius [facility] Work Phone: Comment on above: Method: Infrared 08-20-2020 11:39-0400 Body weight 64.41 kg Tatiana Rinconius [facility] Work Phone: 08-20-2020 11:39-0400 BP Diastolic 88 mm[Hg] Tatiana Mckenzieius [facility] Work Phone: Comment on above: Patient Position: Sitting; Cuff Location : Left Arm; Cuff Size: Standard 08-20-2020 11:39-0400 BP Systolic 128 mm[Hg] Tatiana Gravius [facility] Work Phone: Comment on above: Patient Position: Sitting; Cuff Location : Left Arm; Cuff Size: Standard 08-20-2020 11:39-0400 BSA (Body Surface Area) 1.69 m2 Tatiana Mckenzieius [facility] Work Phone: 08-20-2020 11:39-0400 Height 162.56 cm Tatiana Mckenzieius [facility] Work Phone: 08-20-2020 11:39-0400 Pulse (Heart Rate) 60 /min Tatiana Thompson [employer]IVIL ENGINEERING DIRECTOR [facility] Work Phone: Comment on above: Pattern: Regular 08-20-2020 11:39-0400 Pulse Oximetry 97 % Dee Alvarez [facility] Internal Medicine Work Phone: Comment on above: Room air 08-20-2020 11:39-0400 Respiratory Rate 18 /min Tatiana Thompson CMA [facility] Internal Medicine Work Phone: Comment on above: Pattern: Unlabored 08-20-2020 11:39-0400 SaO2% (BldA) [Mass fraction] 97 % Tatiana Thompson [facility]; [facility] Work Phone: Comment on above: Room air 04-04-2020 11:47-0400 BMI (Body Mass Index) 24.89 kg/m2 Tatiana Thompson [facility] Internal Medicine Work Phone: 04-04-2020 11:47-0400 Body Temperature 97 [degF] Tatiana Thompson [facility] Internal Medicine Work Phone: Comment on above: Method: Temporal 04-04-2020 11:47-0400 Body weight 65.77 kg Tatiana Thompson [facility] Internal Medicine Work Phone: 04-04-2020 11:47-0400 BP Diastolic 88 mm[Hg] Tatiana Thompson [facility] Internal Medicine Work Phone: Comment on above: Patient Position: Sitting; Cuff Location : Left Arm; Cuff Size: Standard 04-04-2020 11:47-0400 BP Systolic 126 mm[Hg] Tatiana Thompson [facility] Internal Medicine Work Phone: Comment on above: Patient Position: Sitting; Cuff Location : Left Arm; Cuff Size: Standard 04-04-2020 11:47-0400 BSA (Body Surface Area) 1.71 m2 Tatiana Thompson [facility] Internal Medicine Work Phone: 04-04-2020 11:47-0400 Height 162.56 cm Tatiana Thompson [facility] Internal Medicine Work Phone: 04-04-2020 11:47-0400 Pulse (Heart Rate) 56 /min Tatiana Thompson CMA [facility] Work Phone: Comment on above: Pattern: Regular 04-04-2020 11:47-0400 Pulse Oximetry 95 % Dee Alvarez [facility] Work Phone: Comment on above: Room air 04-04-2020 11:47-0400 Respiratory Rate 18 /min Tatiana Thompson [facility] Work Phone: Comment on above: Pattern: Unlabored 04-04-2020 11:47-0400 SaO2% (BldA) [Mass fraction] 95 % Tatiana Thompson [facility]; [facility] Work Phone: Comment on above: Room air 08-10-2016 13:56-0400 BMI (Body Mass Index) 24.89 kg/m2 Karime Slarb [employer] Compre[facility] Internal Medicine Work Phone: 08-10-2016 13:56-0400 Body Temperature 98.4 [degF] Karime Slarb [employer] [facility] Work Phone: 08-10-2016 13:56-0400 Body weight 65.77 kg Karime Slarb [employer] [facility] Work Phone: 08-10-2016 13:56-0400 BP Diastolic 76 mm[Hg] Karime Slarb [employer] [facility] Work Phone: Comment on above: Patient Position: Sitting; Cuff Location : Left Arm; Cuff Size: Standard 08-10-2016 13:56-0400 BP Systolic 118 mm[Hg] Karime Slarb [employer] [facility] Work Phone: Comment on above: Patient Position: Sitting; Cuff Location : Left Arm; Cuff Size: Standard 08-10-2016 13:56-0400 BSA (Body Surface Area) 1.71 m2 Karime Slarb [employer] [facility] Work Phone: 08-10-2016 13:56-0400 Height 162.56 cm Karime Slarb [employer] [facility] Work Phone: 08-10-2016 13:56-0400 Pulse (Heart Rate) 55 /min Karime Slarb [employer] Comprehensiv e Internal Medicine Work Phone: Comment on above: Pattern: Regular 08-10-2016 13:56-0400 Pulse Oximetry 97 % Dee Alvarez [facility] Internal Medicine Work Phone: Comment on above: Room air 08-10-2016 13:56-0400 Respiratory Rate 16 /min Karime Chaveztianna MAK [facility] Work Phone: Comment on above: Pattern: Unlabored 08-10-2016 13:56-0400 SaO2% (BldA) [Mass fraction] 97 % Karime Chaveztianna ELIASN [facility]; [facility] Work Phone: Comment on above: Room air 08-07-2015 12:01-0400 BMI (Body Mass Index) 23.86 kg/m2 Lovely Espinalen sive Internal Medicine Work Phone: 08-07-2015 12:01-0400 Body Temperature 97.8 [degF] Lovely Andrea [facility] Internal Medicine Work Phone: 08-07-2015 12:01-0400 Body weight 63.05 kg Lovely Andrea [facility] Internal Medicine Work Phone: 08-07-2015 12:01-0400 BP Diastolic 72 mm[Hg] Lovely Andrea [facility] Internal Medicine Work Phone: Comment on above: Patient Position: Sitting; Cuff Location : Left Arm; Cuff Size: Standard 08-07-2015 12:01-0400 BP Systolic 112 mm[Hg] Lovely Andrea [facility] Internal Medicine Work Phone: Comment on above: Patient Position: Sitting; Cuff Location : Left Arm; Cuff Size: Standard 08-07-2015 12:01-0400 BSA (Body Surface Area) 1.68 m2 Lovely Andrea [facility] Internal Medicine Work Phone: 08-07-2015 12:01-0400 Height 162.56 cm Lovely Andrea [facility] Internal Medicine Work Phone: 08-07-2015 12:01-0400 Pulse (Heart Rate) 62 /min Lovely Flinner Comprehens[facility] Internal Medicine Work Phone: Comment on above: Pattern: Regular 08-07-2015 12:01-0400 Pulse Oximetry 97 % Dee Alvarez [facility] Internal Medicine Work Phone: Comment on above: Room air 08-07-2015 12:01-0400 Respiratory Rate 16 /min Lovely Emre [facility] Internal Medicine Work Phone: Comment on above: Pattern: Unlabored 08-07-2015 12:01-0400 SaO2% (BldA) [Mass fraction] 97 % Lovely Emre [facility] Internal Medicine; [facility] Work Phone: Comment on above: Room air 07-22-2015 10:20-0400 BMI (Body Mass Index) 23.86 kg/m2 Lovely Emre [facility] Internal Medicine Work Phone: 07-22-2015 10:20-0400 Body Temperature 98.2 [degF] Lovely Emre [facility] Internal Medicine Work Phone: Comment on above: Method: Oral 07-22-2015 10:20-0400 Body weight 63.05 kg Lovely Emre [facility] Internal Medicine Work Phone: 07-22-2015 10:20-0400 BP Diastolic 76 mm[Hg] Lovely Emre [facility] Internal Medicine Work Phone: Comment on above: Patient Position: Sitting; Cuff Location : Left Arm; Cuff Size: Standard 07-22-2015 10:20-0400 BP Systolic 104 mm[Hg] Lovely Emre [facility] Internal Medicine Work Phone: Comment on above: Patient Position: Sitting; Cuff Location : Left Arm; Cuff Size: Standard 07-22-2015 10:20-0400 BSA (Body Surface Area) 1.68 m2 Lovely Emre [facility] Internal Medicine Work Phone: 07-22-2015 10:20-0400 Height 162.56 cm Lovely Andrea [facility] Internal Medicine Work Phone: 07-22-2015 10:20-0400 Pulse (Heart Rate) 52 /min Lovely Andrea [facility] Internal Medicine Work Phone: Comment on above: Pattern: Regular 07-22-2015 10:20-0400 Respiratory Rate 16 /min Lovely Andrea [facility] Internal Medicine Work Phone: Comment on above: Pattern: Unlabored 03-25-2014 09:45-0400 BMI (Body Mass Index) 24.18 kg/m2 Lovely Andrea [facility] Internal Medicine Work Phone: 03-25-2014 09:45-0400 Body Temperature 97.4 [degF] Lovely Andrea [facility] Internal Medicine Work Phone: 03-25-2014 09:45-0400 Body weight 64.41 kg Lovely Andrea [facility] Internal Medicine Work Phone: 03-25-2014 09:45-0400 BP Diastolic 72 mm[Hg] Lovely Andrea [facility] Internal Medicine Work Phone: Comment on above: Patient Position: Sitting; Cuff Location : Left Arm; Cuff Size: Large 03-25-2014 09:45-0400 BP Systolic 112 mm[Hg] Lovely Andrea [facility] Internal Medicine Work Phone: Comment on above: Patient Position: Sitting; Cuff Location : Left Arm; Cuff Size: Large 03-25-2014 09:45-0400 BSA (Body Surface Area) 1.7 m2 Lovely Andrea [facility] Internal Medicine Work Phone: 03-25-2014 09:45-0400 Height 163.19 cm Lovely Andrea [facility] Internal Medicine Work Phone: 03-25-2014 09:45-0400 Pulse (Heart Rate) 48 /min [facility] Work Phone: Comment on above: Pattern: Regular 03-25-2014 09:45-0400 Respiratory Rate 16 /min Lovely Andrea [facility] Internal Medicine Work Phone: Comment on [...] 08:44-0400 Body Temperature 98.2 [degF] KANDACE Sandhu AUBREE [facility] Work Phone: Comment on above: Method: Oral 08-25-2010 08:44-0400 Body weight 63.96 kg KANDACE Sandhu AUBREE [facility] Work Phone: 08-25-2010 08:44-0400 BP Diastolic 70 mm[Hg] KANDACE Sandhu [employer] [facility] Work Phone: Comment on above: Patient Position: Sitting; Cuff Location : Left Arm; Cuff Size: Standard 08-25-2010 08:44-0400 BP Systolic 118 mm[Hg] KANDACE Sandhu AUBREE [facility] Work Phone: Comment on above: Patient Position: Sitting; Cuff Location : Left Arm; Cuff Size: Standard 08-25-2010 08:44-0400 Pulse (Heart Rate) 64 /min KANDACE Sandhu AUBREE [facility] Internal Medicine Work Phone: Comment on above: Pattern: Regular 08-25-2010 08:44-0400 Respiratory Rate 18 /min KANDACE Sandhu [employer] [facility] Work Phone: Comment on [...] Occipital-frontal circumference 0 cm KANDACE Sandhu LPN [facility] Internal Medicine; [facility] Work Phone: 01-23-2008 11:14-0500 Height 0 cm KANDACE Sandhu LPN [facility] Work Phone: 01-23-2008 11:14-0500 Pulse (Heart Rate) 54 /min KANDACE Sandhu LPN [facility] Work Phone: Comment on above: Pattern: Regular 01-23-2008 11:14-0500 Respiratory Rate 18 /min KADNACE Sandhu LPN [facility] Work Phone: Comment on above: Pattern: Unlabored 08-17-2007 08:06-0400 Body Temperature 97.9 [degF] Dee Alvarez [facility] Internal Medicine Work Phone: Comment on above: Method: Oral 08-17-2007 08:06-0400 Body weight 0 kg Dee Alvarez [facility] Internal Medicine Work Phone: 08-17-2007 08:06-0400 BP Diastolic 90 mm[Hg] Dee Alvarez [facility] Internal Medicine Work Phone: Comment on [...] 08:06-0400 Respiratory Rate 16 /min Dee Alvarez [facility] Internal Medicine Work Phone: Comment on above: Pattern: Unlabored 09-01-2006 15:38-0400 Body Temperature 98.2 [degF] Dee Alvarez [facility] Work Phone: Comment on above: Method: Undefined 09-01-2006 15:38-0400 Body weight 0 kg Dee Alvarez [facility] [...] Date Encounter Type Care Provider Facility Start: 06-25-2025 End: 06-25-2025 Telephone encounter Ozzie Robertson MD Work Phone: Neurology Comment on above: Chart update (Dr Maria A brush request his MARILEE note be forwarded to PCP.) Start: 06-21-2025 End: 06-21-2025 Patient encounter procedure Ozzie Robertson MD Work Phone: Neurology Comment on above: Dementia without beh avioral disturbance, psychotic disturbance, mood disturbance, or anxiety, unspecified dementia severity, unspecified dementia type (HCC) (Primary Dx); Family history of dementia; Cognitive decline; Memory loss Start: 06-21-2025 End: 06-21-2025 ambulatory RAJAT CUMMINS Facility:[facility] Start: 06-06-2025 ambulatory Rajat Fast Facility:[facility] Start: 06-04-2025 End: 06-04-[address] Rajat Cummins DO Work Phone: -Outpatient Breast Imaging Start: 06-04-2025 End: 06-04-[address] Rajat Cummins DO -Outpatient Breast Imaging Work Phone: Start: 06-04-2025 End: 06-04-2025 ambulatory Rajat Cummins Facility:[facility] Start: 05-28-2025 End: 05-28-[address] Rajat Cummins DO -Radiology [facility] Work Phone: Start: 05-28-2025 End: 05-28-[address] Rajat Cummins DO Work Phone: -Radiology [facility] Start: 05-28-2025 Non-patient / Non-visit [facility] Work Phone: Start: 05-28-2025 End: 05-28-2025 ambulatory Rajat Cummins Facility:[facility] Start: 05-20-2025 End: 05-20-2025 Patient encounter procedure Juan BOW[facility] Work Phone: Start: 05-20-2025 End: 05-20-[address] Rajat Cummins DO Work Phone: [facility] Work Phone: Start: 05-19-2025 End: 05-19-2025 Patient encounter procedure Chidi WANG [facility] Work Phone: Start: 05-19-2025 End: 05-19-[address] Rajat Cummins DO Work Phone: [facility] Work Phone: Start: 05-02-2025 Registered [facility] -Laboratory Work Phone: Start: 05-02-2025 End: 05-02-[address] Rajat Cummins DO Work Phone: [facility] Work Phone: Start: 05-02-2025 End: 05-02-[address] Rajat Cummins DO -Laboratory Work Phone: Start: 05-02-2025 End: 05-02-2025 ambulatory Rajat Fast Facility:[facility] Start: 04-16-2025 End: 04-16-2025 Patient encounter procedure Juan Miller PA -[facility] Work Phone: Start: 04-16-2025 End: 04-16-[address] Rajat Cummins DO Work Phone: [facility] Work Phone: Start: 03-13-2025 End: 03-13-[address] Rajat Cummins DO Work Phone: [facility] Work Phone: Start: 03-13-2025 End: 03-13-[address] Rajat Cummins DO -[facility] Work Phone: Start: 03-13-2025 End: 03-13-2025 ambulatory Rajat Fast Facility:[facility] Start: 02-12-2025 End: 02-12-2025 Patient encounter procedure Danni Gurrola PA-C Work Phone: Neurology Comment on above: Dementia without beh avioral disturbance, psychotic disturbance, mood disturbance, or anxiety, unspecified dementia severity, unspecified dementia type (HCC) (Primary Dx); Cognitive decline; Memory loss Start: 02-12-2025 End: 02-12-2025 ambulatory RAJAT A FAST Facility:[facility] Start: 01-29-2025 End: 01-29-2025 Patient encounter procedure Juan Miller PA -[facility] Work Phone: Start: 01-29-2025 End: 01-29-2025 ambulatory Rajat Fast Facility:[facility] Start: 01-24-2025 End: 01-24-2025 Telephone encounter Ozzie Robertson MD Work Phone: Neurology Comment on above: Patient Question; Pa tient Update Start: 01-17-2025 End: 01-17-[address] Rajat Cummins DO -Laboratory Work Phone: Start: 01-17-2025 End: 01-17-2025 ambulatory Rajat Fast Facility:[facility] Start: 12-25-2024 End: 12-25-2024 Telephone encounter Ozzie Robertson MD Work Phone: [facility] Comment on above: Medication Question Start: 11-23-2024 End: 11-23-2024 Telephone encounter Ozzie Robertson MD Work Phone: Neurology Comment on above: Patient Question Start: 11-02-2024 End: 11-02-2024 Patient encounter procedure Ozzie Robertson MD Work Phone: Neurology Comment on above: Cognitive decline (P rimary Dx); Memory loss Start: 11-02-2024 End: 11-02-2024 ambulatory RAJAT A FAST Facility:[facility] Start: 09-20-2024 ambulatory Rajat Fast Facility:[facility] Start: 09-20-2024 End: 09-20-2024 ambulatory Rajat Fast Facility:[facility] Start: 07-31-2024 End: 07-31-2024 Refill Ozzie Robertson MD Work Phone: [facility] Comment on above: Refill Request Start: 07-24-2024 End: 07-24-2024 ambulatory Rajat Fast Facility:[facility] Start: 07-05-2024 End: 07-05-2024 ambulatory Rajat Fast Facility:[facility] Start: 05-04-2024 End: 05-04-2024 Patient encounter procedure Ozzie Robertson MD Work Phone: Neurology Comment on above: Cognitive decline (P rimary Dx); Memory loss Start: 04-06-2024 Refill Ozzie patterson MD Work Phone: Neurology Comment on above: Refill Request Start: 03-22-2024 End: 03-22-[address] Rajat Cummins Work Phone: [facility] Work Phone: Start: 03-22-2024 End: 03-22-[address] Rajat Cummins Work Phone: [facility]-Laboratory Work Phone: Start: 03-22-[address] Rajat Cummins Work Phone: [facility]-Laboratory Work Phone: Start: 01-31-2024 Telephone encounter Ozzie Robertson MD Work Phone: Neurology Comment on above: Patient Question Start: 12-30-2023 End: 12-30-2023 Patient encounter procedure Ozzie Robertson MD Work Phone: Neurology Comment on above: Cognitive decline (P rimary Dx); Memory loss Start: 12-27-2023 End: 12-27-[address] Rajat Cummins Work Phone: [facility] Work Phone: Start: 12-27-2023 End: 12-27-[address] Rajat Cummins Work Phone: [facility] Work Phone: Start: 12-20-2023 End: 12-20-[address] Rajat Cummins Work Phone: [facility] Work Phone: Start: 12-09-2023 End: 12-09-[address] Rajat Cummins Work Phone: [facility] Work Phone: Start: 12-09-2023 End: 12-09-[address] Rajat Cummins Work Phone: [facility]-Physical Therapy Work Phone: Start: 12-09-[address] Rajat Cummins Work Phone: [facility]-Physical Therapy Work Phone: Start: 11-14-2023 Telephone encounter Danni Alberto vailner PA-C Work Phone: Neurology Start: 11-10-2023 Telephone encounter Danni Alberto eener PA-C Work Phone: Neurology Comment on above: Patient Update; Fátima ent Question Start: 10-11-2023 Telephone encounter Dannijose vailner PA-C Work Phone: Family [facility] Comment on above: prior authorization Start: 10-04-2023 Telephone encounter Ozzie Robertson MD Work Phone: [facility] Comment on above: Results Start: 10-04-2023 End: 10-04-2023 Subsequent hospital visit by physician [employer] [facility] Wstr (I-Stat/1.5t) Work Phone: Radiology Comment on above: Memory loss [R41.3] Start: 09-15-[address] Rajat Cummins Work Phone: [facility]-Employee Health Start: 2023 End: 2023 Patient encounter procedure Ozzie Robertson MD Work Phone: Neurology Comment on above: Memory loss (Primary Dx); Cognitive decline Start: 07-25-2023 End: 07-25-2023 ambulatory [facility] Work Phone: Start: 07-25-2023 End: 07-25-2023 Patient encounter procedure [facility]-MRI - [facility] Work Phone: Start: 07-13-2023 End: 07-13-2023 Phone Encounter Rajat Cummins DO Work Phone: [facility] Start: 07-12-2023 End: 07-12-2023 ambulatory [facility] Work Phone: Start: 07-12-2023 End: 07-12-2023 Patient encounter [facility] Start: 07-12-2023 End: 07-17-2023 Office outpatient visit 15 minutes Rajat Cummins DO Work Phone: [facility] Start: 07-12-2023 Review Rajat Cummins DO Work Phone: [facility] Start: 07-05-2023 End: 07-05-[address] Rajat Cummins Work Phone: [facility] Work Phone: Start: 07-05-2023 End: 07-05-[address] Rajat Cummins Work Phone: [facility]-Physical Therapy Work Phone: Start: 06-08-2023 Telephone encounter Neurology Provid er Neurology Comment on above: Appointment Start: 04-20-2023 End: 04-20-[address] Rajat Cummins Work Phone: [facility] Work Phone: Start: 04-20-2023 End: 04-20-[address] Rajat Cummins Work Phone: [facility]-Outpatient Bone Densitometry Start: 03-11-2023 End: 03-11-[address] Rajat Cummins Work Phone: [facility] Start: 02-08-2023 End: 02-08-[address] Rajat Cummins Work Phone: [facility] Gastroenterology Start: 01-26-[address] Rajat Cummins Work Phone: [facility]-Cardiovascular Services Start: 01-11-2023 ambulatory Rajat Cummins DO Compreh ensive Internal Med Start: 01-11-2023 End: 01-11-2023 Office outpatient visit 25 minutes Rajat Cummins DO Work Phone: [facility] Start: 01-07-2023 End: 01-07-2023 ambulatory [facility] Work Phone: Start: 01-07-2023 End: 01-07-2023 Patient encounter procedure [facility]-Laboratory Start: 12-21-2022 End: 12-21-2022 Phone Encounter [...] Start: 04-15-2021 End: 04-15-2021 Phone Encounter Dee Antonio DO Work Phone: [facility] Start: 01-30-2021 End: 01-30-2021 Annotation/Addendum Dee Alvarez [facility] Start: 12-08-2020 End: 12-08-2020 Office outpatient visit 10 minutes Dee Alvarez [facility] Start: 08-20-2020 End: 08-20-2020 Office outpatient visit 15 minutes Dee Alvarez [facility] Start: 08-01-2020 End: 08-01-2020 Annotation/Addendum Dee Alvarez [facility] Start: 07-25-2020 End: 07-25-2020 Annotation/Addendum Dee Alvarez [facility] Start: 04-04-2020 End: 04-04-2020 Patient encounter status Rajat Fast DO Work Phone: [facility] Start: 04-04-2020 End: 04-04-2020 Periodic preventive med est patient 65yrs& older Dee Antonio [facility] Start: 08-12-2017 End: 08-12-2017 Lab Order Dee Alvarez [facility] Start: 08-10-2016 End: 08-10-2016 Periodic preventive med est patient 40-64yrs Dee Alvarez Juan Antonio Internal Medicine Start: 09-01-2015 End: 09-01-2015 Phone Encounter Dee Alvarez [facility] Chief Librarian Branch al Medicine Start: 09-01-2015 End: 09-01-2015 Physical examination Rajat Fast DO Work Phone: [facility] Start: 08-07-2015 End: 08-07-2015 Office outpatient visit 15 minutes Dee Alvarez [facility] Start: 07-22-2015 End: 07-22-2015 Office outpatient visit 25 minutes Dee Alvarez [facility] Start: 07-22-2015 End: 07-22-2015 Physical examination Rajta Fast DO Work Phone: [facility] [...] 04-11-2008 End: 04-11-2008 Historical Summary Dee Alvarez [facility] Start: 04-10-2008 End: 04-10-2008 Office outpatient visit 25 minutes Dee Alvarez [facility] Start: 01-23-2008 End: 01-23-2008 Patient encounter procedure Dee Alvarez [facility] Start: 08-17-2007 End: 08-17-2007 Patient encounter procedure Dee Alvarez [facility] Start: 09-01-2006 End: 09-01-2006 Patient encounter procedure Dee Alvarez [facility] Patient encounter status [facility]; [facility] Work Phone: Patient encounter status Tonie Langford [facility]; [facility] Work Phone: Patient encounter status Tonie Langford [facility]; [facility] Work Phone: Patient encounter status Tonie Langford [facility]; [facility] Work Phone: Patient encounter status Raheem Fuentes [facility]; [facility] Work Phone: Patient encounter status Tonie Langford [facility] [facility]; [facility] Work Phone: Patient encounter status Tonie Langford [facility]; [facility] Work Phone: Physical examination [facility] Com prehensive Internal Medicine; [facility] Work Phone: Physical examination Tonie Langford [facility]; [facility] Work Phone: Physical examination Tonie Langford [facility]; [facility] Work Phone: Physical examination Tonie Langford [facility] Comprehensive [facility]; [facility] Work Phone: Physical examination Fritzleobardofercho MilesGina [facility] C omprehensive Internal Medicine; [facility] Work Phone: Physical examination Tonie Langford [facility]; [facility] Work Phone: Physical examination Tonie Langford [facility]; [facility] Work Phone: Procedures Date Procedure Procedure Detail Performing Clinician Start: 06-04-2025 Dual energy X-ray absorptiometry Dr. Rajat Cummisn DO Work Phone: Start: 06-04-[address] Rajat Cummins DO Work Phone: Start: 05-28-2025 X-ray of chest, PA and lateral views Dr. Rajat Cummins DO Work Phone: Start: 05-02-[address] inorganic phosphate measurement [address] Rajat Cummins DO Work Phone: Start: 05-02-2025 Urnls dip stick/tablet reagent auto microscopy Dr. Rajat Cummins DO Work Phone: Start: 05-02-2025 Vitamin D, 25-hydroxy measurement Dr. Rajat Cummins DO Work Phone: Comment on above: Vitamin D StatusDeficiency: <20 ng/mL (5 0nmol/L)Insufficiency: 20-30 ng/mL (50-75 nmol/L)Sufficiency: 30-100 ng/mL (75-250 nmol/L)Toxicity: >100 ng/mL (>250 nmol/L) Start: 03-13-2025 MRI of joint of lower extremity Dr. Rajat Cummins DO Work Phone: Start: 01-17-[address] Rajat Cummins DO Work Phone: Start: 01-17-2025 Measurement of renal function Dr. Rajat Cummins DO Work Phone: Comment on above: GFR Calc Start: 01-17-2025 Vitamin D, 25-hydroxy measurement Dr. Rajat Cummins DO Work Phone: Comment on above: Vitamin D 25(OH) Status Range Deficiency <20 ng/mL (50nmol/L) Insufficiency 20 - 30 ng/mL (50 - 75 nmol/L) Sufficiency 30 - 100 ng/mL (75 - 250 nmol/L) Toxicity >100 ng/mL (>250 nmol/L) Start: 12-27-2023 Plain chest X-ray Dr. Rajat Cummins Work Phone: Start: 10-04-2023 3d rendering w/interp&postproc diff work station Ozzie Robertson MD Work Phone: Start: 10-04-2023 Mri brain brain stem w/o contrast material Ozzie Robertson MD Work Phone: Start: 07-25-2023 MRI of joint of lower extremity Start: 07-12-2023 Plain X-ray of shoulder Start: 07-12-2023 End: 07-13-2023 Shoulder min 2 Views Procedure Note: See Note; NOTES: [facility] Imaging Services [address] [place] [address] Shoulder min 2 Views MR#: [id number] Acct: [id number] Name: ERIN DYSON APOLLO Rep #: [id number] : 1955 F 67 From: Won Daniels PCP: Dr. Rajat Cummins DO Status: REG CLI Study: Shoulder min 2 Views Date of Exam: 07/12/23 Exam# [id number] Ordering Dr: Rajat Cummins DO EXAM: XR [...] EDT , CC: Dr. Rajat Cummins DO Potato Inspector: Signed Rajat Cummins DO Work Phone: Start: 07-05-2023 End: 07-05-2023 PT D/C Summary (1) Procedure Note: See Note; NOTES: [facility] Physical Therapy [facility] [address] [place] [address]. [address] [place] [address] / REHABILITATION SERVICES DISCHARGE SUMMARY MR#: [id number] Acct: [id number] Name: ERIN DYSON APOLLO Rep #: [id number] : 1955 67 From: Karime SÁNCHEZ Referring DrChau: Yamilex Arnold DO Status: REG RCR Insurance: [facility] [employer]/[facility] SELF PAY INSURANCE Discharge Summary D/C summary: [...] please feel free to call me at [phone]. Thank you for the referral of this patient. Sincerely, GONZALO Farrell Balance/Gait/Functional tests Balance/Special Test Scores Quick DASH Score: 47.7250 <Electronically signed by Karime Ariza MPT> 07/05/23 4610 CC: Dr. Rajat Cummins DO; Yamilex Arnold DO Signed Rajat Cummins DO Work Phone: Start: 06-30-2023 End: 06-30-2023 Re-Evaluation - PT (1) Procedure Note: See Note; NOTES: [facility] Physical Therapy [address] [place] [address] / REEVALUATION / MEDICARE RECERTIFICATION PHYSICAL THERAPY MR#: [id number] Acct: [id number] Name: ERIN DYSON Rep #: [id number] : 1955 67 From: Fermin Lynch DPT Referring Dr.: Yamilex Arnold DO Status:REG RCR Insurance: [email or web address]/[facility] SELF PAY INSURANCE Re-Evaluation Intro: Yamilex Arnold [...] do not hesitate to contact me at [phone] by phone or if you have questions or concerns regarding this new plan of care! Sincerely, Fermin Lynch DPT <Electronically signed by Fermin Lynch DPT> 06/30/23 0836 CC: Dr. Rajat Cummins DO; Yamilex Arnold DO CLS Signed For Medicare only, by signing this I certify the plan of care. __ Physicians Signature Date Rajat Cummins DO Work Phone: Start: 06-08-2023 End: 06-08-2023 Inital Evaluation (1) - PT Procedure Note: See Note; NOTES: [facility] Physical Therapy [facility] [address] [place] [address] / REHABILITATION SERVICES INITIAL EVALUATION MR#: [id number] Acct: [id number] Name: ERIN DYSON Rep #: [id number] : 1955 67 From: Karime SÁNCHEZ Referring Dr.: Yamilex Arnold DO Status: REG RCR Insurance: [email or web address]/[facility] SELF PAY INSURANCE Patient's Visit Information Visit [...] to be FAXED BACK to us at [phone] for Medicare purposes. For Medicare only, by [...] Study Procedure Note: See Note; NOTES: [facility] Imaging Services [address] [place] [address] Dexa Bone Density Study MR#: [id number] Acct: [id number] Name: ERIN DYSON Rep #: [id number] : 1955 F 67 From: Rafal rosas MD PCP: Dr. Rajat Cummins DO Status: [facility] Study: Dexa Bone Density Study Date of Exam: 04/20/23 Exam# [id number] Ordering Dr: Rajat Cummins DO STUDY: DUAL [...] EDT , CC: Dr. Rajat Cummins DO Potato Inspector: Signed Rajat Cummins DO Work Phone: Start: 04-20-2023 Dual energy X-ray absorptiometry Dr. Rajat Cummins Work Phone: Start: 04-20-2023 Screening mammography of bilateral breasts Dr. Rajat Cummins Work Phone: Start: 04-20-2023 End: 04-21-2023 SCREENING MAMM (CAD), BILAT Procedure Note: See Note; NOTES: [facility] Imaging Services [address] [place] [address] SCREENING MAMM (CAD), BILAT MR#: [id number] Acct: [id number] Name: ERIN DYSON APOLLO Rep #: [id number] : 1955 F 67 From: Servando Thomason DO PCP: Dr. Rajat Cummins DO Status: REG CLI Study: SCREENING MAMM (CAD), BILAT Date of Exam: 03/29 03/20 Exam# [id number] Ordering Dr: Rajat Cummins DO MAMMOGRAPHY - [...] 11:30 EDT Reading Location ID and State: [facility] / [place] Tel , Service support , CC: Dr. Rajat Cummins DO Potato Inspector: Signed Rajat Cummins DO Work Phone: Start: 03-11-2023 Plain chest X-ray Dr. Rajat Cummins Work Phone: Start: 03-11-2023 End: 03-11-2023 Chest PA and Lateral Procedure Note: See Note; NOTES: [facility] Imaging Services [address] [place] [address] Chest PA and Lateral MR#: [id number] Acct: [id number] Name: ERIN DYSON APOLLO Rep #: [id number] : 1955 F 67 From: Mary jefferson MD PCP: Dr. Rajat Cummins DO Status: REG CLI Study: Chest PA and Lateral Date of Exam: 03/11/23 Exam# [id number] Ordering Dr: Agustin Mooney HISTORY: Persistent cough. [...] CC: ANDRÉS Mooney; Dr. Rajat Cummins DO Potato Inspector: Signed Rajat Cummins DO Work Phone: Start: 03-11-2023 End: 03-11-2023 Urgent Care Visit Report Procedure Note: See Note; NOTES: [facility] [address] [place] [address] OFFICE VISIT Date of Service: 03/11/23 MR#: [id number] Acct: [id number] Name: ERIN DYSON APOLLO Rep #: [id number] : 1955 Provider: ANDRÉS Mooney Age/Sex: 67/F Location: [facility] Status: Signed Intake Vital [...] #21 tabs 03/11/23 [Rx Confirmed 03/11/23] omega 8-mwp-ngd-fish oil 60 mg-90 mg-500 mg capsule (Fish Oil) 1 cap PO DAILY 03/11/23 [History Confirmed 03/11/23] [facility] Medical History Alcohol use Cystocele Gastric reflux [...] at home: Yes additional social history: - 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 HPI Chief Complaint: Cough Details: ERIN KARIS, is a 67 F who presents to [...] Anaya Signature: Date (if applicable) CC: Rajat Cummins DO Work Phone: Start: 02-08-2023 End: 02-08-2023 Gastroenterology Visit Report Procedure Note: See Note; NOTES: [facility] Gastroenterology [address] [facility] [place] [address] OFFICE VISIT Date of Service: 02/08/23 MR#: [id number] Acct: [id number] Name: KARISERIN APOLLO Rep #: [id number] : 1955 Provider: Dickson Oro DO Age/Sex: 67/F Location: [facility] Status: Signed Intake Intake Visit Reasons: HEMORRHOID BANDING Allergies No Known Allergies Allergy (Verified 12/28/22 15:09) [facility] History (Updated 02/08/23 @ 11:11 by [...] at home: Yes additional social history: - Zmap-Rcms-megdncek 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 Follow up instruction provided. LOT [id number] Alert Jareth Alert Billing: Yes Hemorrhoid 20126 Banding Quality Reporting Tobacco Screening ([facility] 138) Smoking Status: Never smoker Assessment and [...] Hemorrhoid K64.9 CPT Codes Hemorrhoid - Hemorrhoid: 37048 Banding (79739) 02/08/23 1717 <Electronically signed by Dickson Oro DO> Date Dickson Friend DO Cosigner Signature: Date (if applicable) CC: Rajat Cummins DO Work Phone: Start: 04-19-2022 End: 04-19-2022 Office Visit Report Comments: See Note; NOTES: [facility] [address] [place] [address] [place] [address] OFFICE VISIT Date of Service: 04/19/22 MR#: [id number] Acct: [id number] Patient: ERIN DYSON APOLLO Rep #: [id number] : 1955 Provider: ANDRÉS Mooney Age/Sex: 66/F Location: [facility] Status: Signed Intake Intake [...] Care Visit Report Comments: See Note; NOTES: [facility] [address] [place] [address] [address] [place] [id number] OFFICE VISIT Date of Service: 04/19/22 MR#: [id number] Acct: [id number] Name: ERIN DYSON APOLLO Rep #: [id number] : 1955 Provider: ANDRÉS Mooney Age/Sex: 66/F Location: [facility] Status: Signed Intake Vital [...] at home: Yes additional social history: - Hwdj-Druu-cdaelazq 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 Rajat Cummins, DO Status: [facility] Study: SCRN MAMM (CAD)W/ARTI BILAT Date of Exam: 03/28 Exam# [id number] Ordering Dr: Rajat Cummins DO MAMMOGRAPHY - [...] delay biopsy of a clinically suspicious abnormality. [id number] Electronically Signed: Rafal Dos Santos MD at 13:38 EDT , CC: Dr. Rajat Cummins DO Potato Inspector: Signed Rajat Cummins DO Work Phone: Start: 07-24-2021 End: 07-24-2021 Colonoscopy Report Comments: See Note; NOTES: [facility] Medical Records Department [address] [place] [address] Colonoscopy Report MR#: [id number] Acct: [id number] Name: ERIN DYSON APOLLO Rep #: [id number] : 1955 65 From: Russell Najera MD PCP: Dr. Rajat Cummins, DO Status:[facility] Patient Name: Erin Dyson [...] surgical removal. Procedure Code(s): --- Professional --- 28164, Colonoscopy, flexible; diagnostic, including collection of specimen(s) by brushing or washing, when performed (separate procedure) 79195, 59, Moderate sedation services provided by the same physician or other qualified health care manager performing the diagnostic or therapeutic service that [...] or abscess without bleeding CPT copyright 2017 [employer]. All rights reserved. The codes documented in this report are preliminary and upon traffic maintenance officer review may be revised to meet current compliance requirements. Russell Najera MD 07/24/2021 6:52:10 AM This report has been signed electronically. Number of Addenda: 0 Note Initiated On: 07/24/2021 6:12 AM 07/24/21651 Date Russell Najera MD Cosigner Signature: Date (if indicated) CC: Dr. Rajat Cummins DO; Dr. Russell Najera MD Date Dictated: 07/24/21611 Date Transcribed: Potato Inspector: TAWNYA Signed Rajat Cummins DO Work Phone: Start: 07-24-2021 End: 07-24-2021 History and Physical Exam Comments: See Note; NOTES: [facility] Medical Records Department [address] [place], [place] [address] [address] History Physical Exam 07/24/21621 MR#: [id number] Acct: [id number] Name: ERIN DYSON APOLLO Rep #: [id number] : 1955 65 From: Russell Najera MD PCP: Dr. 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 Constitutional Constitutional: Reports systems reviewed and no [...] 06-30-2021 Stress Report Comments: See Note; NOTES: [facility] Services [address] [place] [address] MR#: [id number] Acct: [id number] Name: ERIN DYSON Rep #: [id number] : 1955 65 From: Chad Baker MD [...] of 75%. This note was generated with Dragon dictation software. It may contain incorrect words, spelling, and punctuation that were not noted in checking the note before signing. 06/30/21 1320 <Electronically signed by Chad Baker MD> Date Chad Baker MD CC: Dr. Rajat Cummins DO Date Dictated: 06/30/21 1316 Date Transcribed: 06/30/211315 Potato Inspector: PM Signed Rajat Cummins DO Work Phone: Start: 06-30-2021 End: 06-30-2021 Echo Complete Comments: See Note; NOTES: [facility] Services [address] [place] [address] Echo Complete 06/30/21817 MR#: [id number] Acct: [id number] Name: ERIN DYSON APOLLO Rep #: [id number] : 1955 65 From: Chad Baker MD Attending Dr: Dr. Rajat Cummins, Status: REG CL I Ordering Dr: Rajat Cummins DO Date: 06/30/21 Location: [facility] Sex: F C Admitted: Reason For [...] is indeterminate. _ Ordering Physician: Rajat Cummins Physician: Rajat Cummins Performed By: Craig Maciel RCS 06/30/21 1507 Date Chad Baker MD CC: Dr. Rajat Cummins DO Date Dictated: 06/30/21817 Date Transcribed: 06/30/21 150 Potato Inspector: Signed Rajat Cummins DO Work Phone: Start: 04-24-2021 End: 04-24-2021 Emergency Department Summary Comments: See Note; NOTES: [facility] Medical Records Department [address] [facility] [place] [address] Emergency Department Summary 04/24/21 MR#: [id number] Acct: [id number] Name: ERIN DYSON APOLLO Rep #: [id number] : 1955 65 From: Federico Issa MD [...] Negative for Recent Travel/Surgery (only trip to/from [place] 4wks ago, 2 hrs by plane), Recent Immobilization, Prior DVT or PE, Cancer and OCP + Smoking + >/=35 PFSH [facility] Medical History Cystocele Hemorrhoid Home Medications [...] at home: Yes additional social history: - Rflc-Wjih-gffoorqt 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 Call [facility] ([phone]) or report to the closest Emergency Room. Call 911 if necessary. 04/24/21 1508 <Electronically signed by Federico Issa MD> Cosigner Signature (if applicable): CC: Dr. Dee Alvarez DO Signed Dee Alvarez DO Work Phone: Start: 04-24-2021 End: 04-28-2021 12 Lead EKG Comments: See Note; NOTES: [facility] Cardiovascular Services [address] [place] [address] 12 Lead EKG 04/24/21 1026 MR#: [id number] Acct: [id number] Name: ERIN DYSON APOLLO Rep #: [id number] : 1955 65 From: Phillip Borrego MD [...] Normal ECG Confirmed by ELMO SEVERINO, PHILLIP ([id number]), content editor LATASHA BRITTON ([id number]) on 04/28/2021 1:44:13 PM Referred By: GRZEGORZ Confirmed By:PHILLIP BORREGO MD 04/28/21 1344 Date Phillip Borrego MD CC: Dr. Federico Issa MD; Dr. Dee Alvarez DO Signed Dee Alvarez DO Work Phone: Start: 04-24-2021 End: 04-24-2021 Chest 1 View (Portable) Comments: See Note; NOTES: [facility] Imaging Services [address] [place] [address] Chest 1 View (Portable) MR#: [id number] Acct: [id number] Name: ERIN DYSON APOLLO Rep #: [id number] : 1955 F 65 From: Orestes jefferson DO PCP: Dr. Dee Alvarez DO Status: REG ER Study: Chest 1 View (Portable) Date of Exam: 04/24/21 Exam# [id number] Ordering Dr: Federico Issa MD STUDY: X-RAY [...] Federico Issa MD; Dr. Dee Alvarez DO Potato Inspector: Signed Dee Alvarez DO Work Phone: Start: 02-24-2021 End: 02-24-2021 SCRN MAMM (CAD)W/ARTI BILAT Comments: See Note; NOTES: [facility] Imaging Services [address] [place] [address] SCRN MAMM (CAD)W/ARTI BILAT MR#: [id number] Acct: [id number] Name: ERIN DYSON APOLLO Rep #: [id number] : 1955 F 65 From: Rafal rosas MD PCP: Dr. Dee Alvarez DO Status: REG CLI Study: SCRN MAMM (CAD)W/ARTI BILAT Date of Exam: 01/28 Exam# [id number] Ordering Dr: Dee Alvarez DO MAMMOGRAPHY - [...] delay biopsy of a clinically suspicious abnormality. [id number] Electronically Signed: Rafal Dos Santos MD at 8:39 EDT , Service support , CC: Dr. Dee Alvarez DO Potato Inspector: Signed Dee Alvaerz DO Work Phone: Start: 12-13-2020 End: 12-13-2020 Office Visit Report Comments: See Note; NOTES: [facility] [address] [facility] [place] [address] OFFICE VISIT Date of Service: 12/13/20 MR#: [id number] Acct: [id number] Patient: ERIN DYSON Rep #: [id number] : 1955 Provider: KATHLEEN jimenez Age/Sex: 65/F Location: [facility] Status: Signed Intake Vital Signs 12/13/20 BP [...] Days #84 tab 12/13/20 [Rx Confirmed 12/13/20] [facility] Medical History Hemorrhoid (Chronic) Cystocele (Chronic) [...] (Updated 12/13/20 @ 14:11 by Haydee Kilgore WIRELINE SUPERVISOR, WIRELINE SUPERVISOR-C) Smoking Status: Never smoker alcohol intake: current alcohol intake frequency: a few times a week Alcohol type: wine details: 2-3 glasses per week substance use type: does not use caffeine: Yes what type of physical activity do you participate in: walking, weight training frequency: 5-6 times per week seatbelt use: always do you feel safe at home: Yes additional social history: - Mcjh-Qwwe-ugwrpvtg 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 She reports she took the nail maori off of her toenails last night and [...] 1411 <Electronically signed by Haydee Kilgore NP WIRELINE SUPERVISOR- C> Date Haydee Kilgore NP, NP-C Cosigner Signature: Date (if applicable) CC: Dee Alvarez Start: 09-23-2020 End: 09-23-2020 Covered Button Maker Office Visit Report Comments: See Note; NOTES: [facility] [address] [place] [address] OFFICE VISIT Date of Service: 09/23/20 MR#: [id number] Acct: [id number] Name: ERIN DYSON Rep #: [id number] : 1955 Provider: Dr. 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 Pregancy History 2 Elective abortions Hx Para 2 Spontaneous abortions Hx # Term Pregnancies Ectopic pregnancies Hx # Pregnancies Multiple births # of living children Past Pregnancies Del. Date Name GA/Weeks Outcome Route Bth Weight Gen Labor Lgth Anesthesia [facility] FOB Unknown Katie-1970 Unknown Nida-1970 Unknown [...] Patricia Blackman MD> Date Patricia Blackman MD Cosign Signature: Date (if applicable) CC: Dee Alvarez Start: 09-10-2020 End: 09-10-2020 Progress Note - OBGYN Comments: See Note; NOTES: [facility] Records Department [address] [place] [address] Progress Note - OBGYN 09/10/20 0726 MR#: [id number] Acct: [id number] Name: ERIN DYSON Rep #: [id number] : 1955 65 From: Patricia Blackman MD PCP: Dr. Dee Alvarez, DO Status:REG [facility] Y Location: [place] [id number] Patient Problems: Active and Suspected Problems (Last [...] / 1025 1700 / 1700 Balance 1738 / 1988 272.17 / 272.17 General: Alert, [...] 94.2 H, Lymph % (Auto) 3.0 L, Shasta % (Auto) 2.2, Eos % (Auto) 0.0, [...] 500 Mg Tablet) 1,000 mg PO Q6H [facility] Last Admin: 09/10/20 06:43 Dose: 1,000 mg Documented by: Cephalexin (Cephalexin 500 Mg Capsule) 500 mg PO Q12 [facility] Last Admin: 09/09/20 22:12 Dose: 500 mg Documented by: Docusate Sodium (Docusate Sodium 100 Mg Capsule) 100 mg PO BID [facility] Last Admin: 09/09/20 22:12 Dose: 100 mg Documented by: Enoxaparin Sodium (Enoxaparin 40 Mg/0.4 Ml Syringe) 40 mg SC DAILY [facility] Sodium Chloride () 250 mls @ 15 mls/hr IV .[id number] PRN PRN Reason: Saline Flush Sodium Chloride () 250 mls @ 15 mls/hr IV .[id number] PRN PRN Reason: Additional IVPB Infusion Lactated Ringer's () 1,000 mls @ 70 mls/hr IV .[id number] [facility] Stop: 09/10/20 12:30 Last Infusion: 09/10/20 05:22 Dose: Infused Documented by: Ketorolac Tromethamine (Ketorolac 30 Mg/Ml Syringe) 30 mg IV Q6H [facility] Stop: 09/10/20 18:31 Last Admin: 09/10/20 06:09 Dose: 30 mg Documented by: Magnesium Chloride (Magnesium Chloride 64 Mg Delay Rel.Tablet) 128 mg PO DAILY PRN PRN PRN Reason: Constipation Nutritional Formula (Lactose Free) (Ensure Enlive 120 Ml Liquid) 120 ml PO TIDCM [facility] Ondansetron HCl (Ondansetron Odt 4 Mg Tablet) [...] Discharge Instruction Comments: See Note; NOTES: [facility] Medical Records Department [address] [place] [address] Instructions for Home/Discharge Instructions 09/09/20 1636 MR#: [id number] Acct: [id number] Name: KARISERIN Rep #: [id number] : 1955 65 From: Patricia Blackman MD PCP: Dr. Dee Alvarez, DO Status:[facility] Discharge Diet: No Restrictions Discharge Activity: Return [...] Reason: MILD PAIN Transmission Status: Received by [facility] Oxycodone HCl/Acetaminophen [Percocet 5-325] 1 - 2 tab PO Q6H PRN PRN 7 Days #15 tab PRN Reason: Pain Transmission Status: Received by [facility] Primary Care Physician: Dee Alvarez DO [Primary Care Provider] - Test Results: Test results from this visit will be discussed in further detail at your follow-up appointment, if applicable. Please Follow Up With: Patricia Blackman MD - [phone] 09/10/20 0735 <Electronically signed by Patricia Blackman MD> Date Patricia Blackman MD CC: Dr. Nan Robison MD; Dr. Dee Alvarez DO Signed Dee Alvarez Start: 09-09-2020 End: 09-09-2020 Operative Report Comments: See Note; NOTES: [facility] Medical Records Department [address] [place] [address] Operative Report 09/09/20 1044 MR#: [id number] Acct: [id number] Name: ERIN DYSON APOLLO Rep #: [id number] : 1955 65 From: Nan Robison MD PCP: Dr. Dee Alvarez DO Status:REG SDC Y Location: MS3 [id number] Problem List (1) Cystocele Status: Chronic Qualifiers: [...] vaginal cuff, the case was turned to nv. The patient had very thin vaginal mucosa. [...] orifice. On the right side a 5 Singaporean whistle-tip catheter was easily inserted into the [...] Operative Report Comments: See Note; NOTES: [facility] Medical Records Department [address] [place] [address] Operative Report 09/09/20 0730 MR#: [id number] Acct: [id number] Name: ERIN DYSON APOLLO Rep #: [id number] : 1955 65 From: Patricia Blackman MD PCP: Dr. Dee Alvarez DO Status:REG [facility] Y Location: ME3 SN559-6 Problem List (1) Cystocele Status: Chronic Qualifiers: Comment: plan tvh bso combo case with enriqueta (2) Hemorrhoid Status: Chronic Qualifiers: Comment: consult with dr najera for possible removal Report of Operation Date of Procedure: 09/09/20 Pre-Operative Diagnosis: prolapse Post-Operative Diagnosis: same Surgery/Procedure Performed:: tvh bso Description of Surgical Findings:: nl uterus tubes ovaries [place] aide: Beena Corral Type of Anesthesia:: General Special [...] peritoneum and the vagina were closed with peclaj-ev-pcnik 0 Vicryl pop offs including the posterior and what anterior peritoneum was visible in the reapproximation. Excellent hemostasis was noted. All instruments removed from the vagina clear urine was noted at the end of the procedure and dr robison began her portion of the procedure. Grafts/Implants Used: see enriqueta note Multi Select Codes - Urinary/Genital Urinary/Genital CPT Codes: 96483 TVH+BS/O <250gr uterus 09/09/20 0918 <Electronically signed by Patricia Blackman MD> Date Patricia Blackman MD CC: Dr. Nan Robison MD; Dr. Dee Alvarez DO; Dr. Patricia Blackman MD Signed Dee Alvarez Start: 09-09-2020 End: 09-10-2020 History and Physical Exam Comments: See Note; NOTES: [facility] Medical Records Department [address] [place] [address] History and Physical 09/09/20 0645 MR#: [id number] Acct: [id number] Name: ERIN DYSON APOLLO Rep #: [id number] : 1955 65 From: Patricia Blackman MD PCP: Dr. Dee Alvarez DO Status:REG [facility] Y [id number] - Problem List (1) Cystocele Status: Chronic Qualifiers: Comment: plan [facility] bso combo case with enriqueta (2) Hemorrhoid Status: Chronic Qualifiers: Comment: consult with dr najera for possible removal History and Physical Date of Admission: 09/09/20 Intake Vital Signs 08/26/20 BMI 21.6 08/26/20 Height 5 ft 5.5 in 08/26/20 Weight: 141 lb 8 oz 08/26/20 BMI 23.1 08/26/20 BP 130/80 H Intake Visit Reasons: pre op Cap And Stud 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 Required: No Is patient in pain?: No [...] at home: Yes additional social history: - Abmk-Fhlh-vevrpnyk 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 Cystocele plan [facility] bso combo case with enriqueta Salvador After [...] Patricia Blackman MD> Date [facility]: Date (if applicable) CC: Dr. Dee Alvarez DO; Dr. Patricia Blackman MD Signed Dee Alvarez Start: 09-03-2020 End: 09-04-2020 12 Lead EKG Comments: See Note; NOTES: [facility] Cardiovascular Services [address] [place] [address] 12 Lead EKG 09/03/2020 MR#: [id number] Acct: [id number] Name: ERIN DYSON Rep #: [id number] : 1955 65 From: Phillip Borrego MD Attending Dr: Dr. Patricia Blackman MD Status: PRE [facility] Ordering Dr: Orestes Arroyo MD Date: 09/03/20 Location: [facility] Sex: F C Admitted: Test Reason : PREOP Blood Pressure : / mmHG Vent. Rate : 057 BPM Atrial Rate : 057 BPM P-R Int : 166 ms QRS Dur : 082 ms QT Int : 412 ms P-R-T Axes : 042 049 033 degrees QTc Int : 401 ms Sinus bradycardia Otherwise normal ECG Confirmed by ELMO SEVERINO, PHILLIP ([id number]), content editor LATASHA BRITTON ([id number]) on 09/04/2020 10:08:46 AM Referred By: Patricia Blackman Confirmed By:PHILLIP BORREGO MD 09/04/20 1008 Date Phillip Borrego MD CC: Dr. Orestes Arroyo MD; Dr. Dee Alvarez DO; Dr. Patricia Blackman MD Signed Dee Alvarez Start: 08-26-2020 End: 08-26-2020 Covered Button Maker Office Visit Report Comments: See Note; NOTES: [facility] [address] [place] [address] OFFICE VISIT Date of Service: 08/26/20 MR#: [id number] Acct: [id number] Name: ERIN DYSON Rep #: [id number] : 1955 Provider: Dr. Patricia balderrama MD Age/Sex: 65/F [place] [facility] [place]: Signed Intake Vital Signs 08/26/20 BMI 21.6 08/26/20 Height 5 ft 5.5 in 08/26/20 Weight: 141 lb 8 oz 08/26/20 BMI 23.1 08/26/20 BP 130/80 H Intake Visit Reasons: pre op Cap And Stud 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 Required: No Is patient in pain?: No Allergies No Known Allergies Allergy (Verified 08/26/20 13:03) Medications cholecalciferol (vitamin D3) 50 mcg (2,000 unit) capsule 2,000 unit PO QDAY 03/07/18 [History Confirmed 08/26/20] Is last menstrual period known: No Post menopausal: Yes Patient : No : No [facility] Medical History Hemorrhoid (Chronic) Cystocele (Chronic) [...] at home: Yes additional social history: - Qstx-Ayzy-gfwdquaq 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 Cystocele plan [facility] bso combo case with enriqueta Plan After [...] Care Visit Report Comments: See Note; NOTES: [address] [address] OFFICE VISIT Date of Service: 04/22/20 MR#: [id number] Acct: [id number] Name: ERIN DYSON Rep #: [id number] : 1955 Provider: Agustin BOWEN Age/Sex: 64/F Location: [facility] Status: Signed Intake Vital [...] Days #20 cap 04/22/20 [Rx Confirmed 04/22/20] [facility] Medical History Hemorrhoid (Chronic) Cystocele (Chronic) [...] at home: Yes additional social history: - Ikrt-Rqlt-xfjyoqgq 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 Dee Alvarez DO Status: [facility] Study: Dexa Bone Density Study Date of Exam: 04/10/20 Exam# [id number] Ordering Dr: Dee Alvarez DO STUDY: DUAL [...] , Service support , CC: Dr. Dee Alvarez, Potato Inspector: Signed Dee Alvarez Work Phone: Start: 11-28-2019 End: 11-28-2019 Bladder Tonie Langford CIVIL ENGINEERING DIRECTOR Comment on above: Enriqueta Start: 11-28-2019 End: 11-28-2019 Total hysterectomy Tonie Langford [facility] Comment on above: Enriqueta and Anastasia did together Start: 10-07-2016 End: 10-07-2016 Bilat Scrn Digital AND CAD Comments: See Note; NOTES: [facility] Imaging Services [address] [place] [address] Verdana 4d Bilat Scrn Digital AND CAD MR#: [id number] Acct: [id number] Name: ERIN DYSON Rep #: [id number] : 1955 F 61 From: Rafal Dos Santos MD PCP: Radha Cramer Status: REG CLI Study: Bilat Dashan Digital AND CAD Date of Exam: 10/07/16 Exam# [id number] Ordering Dr: Radha Cramer MAMMOGRAPHY - BILATERAL [...] no significant change since the prior study. [facility]/Bilskyla Scrn Digital AND CAD IMPRESSION: Stable bilateral screening mammogram. Yearly follow-up mammogram recommended. (A) ASSESSMENT CATEGORY: BIRADS Category 1: Negative. A letter regarding these results will be sent to the patient by the facility within 30 days. Approximately 10% of breast cancers are not detected by mammography. A normal mammogram should not delay biopsy of a clinically suspicious abnormality. [id number] Electronically Signed: Rafal Dos Santos MD at 13:25 EST Tel [phone], Service support [phone], CC: Radha Cramer Potato Inspector: Signed Chel Shoaib Work Phone: Start: 07-29-2015 End: 07-29-2015 Bilat Scrn Digital AND CAD Comments: See Note; NOTES: [facility] Imaging Services [address] [place] [address] Breast Imaging Report MR#: [id number] Acct: [id number] Name: ERIN DYSON Rep #: [id number] : 1955 F 59 From: Rafal Dos Santos MD PCP: Rajat Cummins DO Status: REG CLI Study: Danielito Henriquez Digital AND CAD Date of Exam: 07/29/15 Exam# [id number] Ordering Dr: Rajat Cummins DO MAMMOGRAPHY - [...] Dos Santos MD at 14:34 EDT Tel [phone], Service support [phone], CC: Rajat Cummins DO Potato Inspector: Signed Rajat Cummins Work Phone: Start: 07-29-2015 End: 07-31-2015 Dexa Bone Density Study (HP) Comments: See Note; NOTES: [facility] Imaging Services [address] [place] [address] Bone Density Report MR#: [id number] Acct: [id number] Name: ERIN DYSON Rep #: [id number] : 1955 F 59 From: Rafal Dos Santos MD PCP: Rajat Cummins DO Status: REG CLI Study: Dexa Bone Density Study (HP) Date of Exam: 07/29/15 Exam# [id number] Ordering Dr: Rajat Cummins DO STUDY: DUAL [...] Dos Santos MD at 10:14 EDT Tel [phone], Service support [phone], CC: Rajat Cummins DO Potato Inspector: Signed Rajat Cummins Work Phone: Start: 04-01-2014 End: 04-12-2014 Bilat Scrn Digital & CAD Comments: See Note; NOTES: [facility] Imaging Services [address] [place] [address] Breast Imaging Report MR#: [id number] Acct: [id number] Name: ERIN DYSON Rep #: [id number] : 1955 F 58 From: Rafal Dos Santos MD PCP: Rajat Cummins DO Status: REG CLI Exam# [id number] Ordering Dr: Rajat Cummins DO MAMMOGRAPHY - [...] Dos Santos MD at 13:32 EDT Tel [phone], Service support [phone], CC: Rajat Cummins DO Potato Inspector: Signed Rajat Cummins Work Phone: Start: 06-15-2011 [...] with osteotomy of first metatarsal Disha Cross [employer] Comment on above: Bilateral. Bunionectomy with osteotomy of first metatarsal Tonie Manchak CIVIL ENGINEERING DIRECTOR Comment on above: Bilateral. Bunionectomy with osteotomy of first metatarsal Tonie Manchak CIVIL ENGINEERING DIRECTOR Comment on above: Bilateral. Bunionectomy with osteotomy of first metatarsal Tonie Manchak CIVIL ENGINEERING DIRECTOR Comment on above: Bilateral. Bunionectomy with osteotomy of first metatarsal Tonie Manchak CIVIL ENGINEERING DIRECTOR Comment on above: Bilateral. Bunionectomy with osteotomy of first metatarsal Kayela Lamoille CIVIL ENGINEERING DIRECTOR Comment on above: Bilateral. Bunionectomy with osteotomy of first metatarsal Tonie Manchak CIVIL ENGINEERING DIRECTOR Comment on above: Bilateral. Bunionectomy with osteotomy of first metatarsal Tonie Manchak CIVIL ENGINEERING DIRECTOR Comment on above: Bilateral. 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 Tonie Manchak CIVIL ENGINEERING DIRECTOR Plan of Treatment Date Care Activity Detail Author Start: 01-29-2035 Urine microalbumin profile DTaP,Tdap,Td Vaccine (3 - Td or Tdap) [facility] Start: 2029 RSV Vaccine (1 - 1-d ose 75+ series) RSV Vaccine (1 - 1-dose 75+ series) [facility] Start: 10-18-2025 End: 10-18-2025 Patient encounter procedure 10/18/2025 8:00 AM EST Office Visit Neurology [address] [place] [address] Ozzie Robertson Jr., MD [address] [place] [address] 3-4 month follow up Neurology Comment on above: 3-4 month follow up Start: 07-29-2025 Influenza vaccination Influenza Vacc ine (#1) [facility] Start: 05-03-2025 End: 05-03-2025 Patient encounter procedure 05/03/2025 2:00 PM EDT Office Visit Neurology [address] [place], [place] [address] Ozzie Robertson Jr., MD [address] [place], [place] [id number] 6 mth f/u cognitive decline, marilee 11/02/24 Neurology Comment on above: 6 mth f/u cognitive decline, marilee 11/02/24 Start: 03-13-2025 MRI of joint of lowe r extremity Upper Ext Joint Only(Routine) [facility] Start: 02-06-2025 End: 02-06-2025 Patient encounter procedure 02/06/2025 11:30 AM EDT Office Visit Neurology [address] [place], [place] [address] Danni Gurrola PA-C [address] [place], [place] [id number] review meds and discuss further treatment options. Neurology Comment on above: review meds and disc uss further treatment options. Start: 11-28-2024 Advance Directive Discussion Advance Directive Discussion [facility] Start: 11-02-2024 End: 11-02-2024 Patient encounter procedure 11/02/2024 3:20 PM EST Office Visit Neurology [address] [place], [place] [address] Ozzie Robertson Jr., MD [address] [id number] 3 Month Follow up Neurology Comment on above: 3 Month Follow up Start: 07-29-2024 Covid-19 Vaccine ( season) Covid-19 Vaccine ( season) [facility] Start: 07-29-2024 Covid-19 Vaccine ( season) Covid-19 Vaccine ( season) [facility] Start: 07-29-2024 Influenza vaccination [facility] Start: 05-04-2024 End: 05-04-2024 Patient encounter procedure 05/04/2024 9:00 AM EDT Office Visit Neurology [address] [facility] [place] [address] Ozzie Robertson Jr., MD [address] [facility] [address] [place] [address] 3 Month Follow up Neurology Comment on above: 3 Month Follow up Start: 11-28-2023 Advance Directive Discussion Advance Directive Discussion [facility] Start: 2023 End: 10-19-2023 Cobalamin (Vitamin B12) [Mass/volume] in Serum or Plasma [facility] Work Phone: Comment on above: Expected: 2023 , Expires: 10/19/2023 Start: 2023 End: 10-19-2023 Thyrotropin [Units/volume] in Serum or Plasma [facility] Work Phone: Comment on above: Expected: 2023 , Expires: 10/19/2023 Start: 2023 End: 10-19-2023 Thyroxine (T4) free [Mass/volume] in Serum or Plasma [facility] Work Phone: Comment on above: Expected: 2023 , Expires: 10/19/2023 Start: 07-29-2023 Covid-19 Vaccine ( season) Covid-19 Vaccine ( season) [facility] Start: 07-29-2023 Influenza vaccination [facility] Start: 07-12-2023 Procedure Education Eprescribe d prescriptions (G8553) [facility] Work Phone: Start: 07-12-2023 Cyanocobalamin vitam in b-12 VITAMIN B12 AND FOLATES (27451) [facility]; [facility] Work Phone: Start: 07-12-2023 Blood count complete auto&auto difrntl wbc CBC W/AUTO DIFF WBC (42006) [facility]; [facility] Work Phone: Start: 07-12-2023 Comprehensive metabo lic panel METABOLIC PANEL, COMPREHENSIVE (52486) [facility]; [facility] Work Phone: Start: 04-20-2023 Dual energy X-ray absorptiometry Dexa Bone Density Study [facility] Start: 01-11-2023 Procedure Education Eprescribe d prescriptions (G8553) [facility]; [facility] Work Phone: Start: 01-11-2023 Blood count complete auto&auto difrntl wbc CBC W/AUTO DIFF WBC (83381) [facility]; [facility] Work Phone: Start: 01-11-2023 Comprehensive metabo lic panel METABOLIC PANEL, COMPREHENSIVE (27207) [facility]; [facility] Work Phone: Start: 01-11-2023 Cyanocobalamin vitam in b-12 VITAMIN B12 AND FOLATES (09036) [facility]; [facility] Work Phone: Start: 11-28-2022 ADVANCE DIRECTIVE DISCUSSION ADVANCE DIRECTIVE DISCUSSION [facility] Start: 11-28-2022 [facility] Start: 07-09-2022 Procedure Education Eprescribe d prescriptions (G8553) [facility]; [facility] Work Phone: Start: 07-09-2022 Comprehensive metabo lic panel METABOLIC PANEL, COMPREHENSIVE (99985) [facility]; [facility] Work Phone: Start: 07-09-2022 25 hydroxy includes fractions if performed Vitamin D Hydroxy (94671) [facility]; [facility] Work Phone: Start: 07-09-2022 Lipid panel LIPID PANEL (04163) [facility] Work Phone: Start: 04-28-2022 Procedure Education Eprescribe d prescriptions (G8553) [facility]; [facility] Work Phone: Start: 12-29-2021 Urnls dip stick/tabl et reagent auto microscopy URINALYSIS, W/ MICRO (93077) [facility]; [facility] Work Phone: Start: 12-29-2021 Blood count complete auto&auto difrntl wbc CBC W/AUTO DIFF WBC (12857) [facility]; [facility] Work Phone: Start: 12-29-2021 Comprehensive metabo lic panel METABOLIC PANEL, COMPREHENSIVE (79310) [facility]; [facility] Work Phone: Start: 12-29-2021 Procedure Education Eprescribe d prescriptions (G8553) [facility]; [facility] Work Phone: Start: 12-29-2021 Comprehensive metabo lic panel METABOLIC PANEL, COMPREHENSIVE (35875) [facility]; [facility] Work Phone: Start: 12-29-2021 25 hydroxy includes fractions if performed Vitamin D Hydroxy (43926) [facility]; [facility] Work Phone: Start: 12-29-2021 Lipid panel LIPID PANEL (01469) [facility] Work Phone: Start: 12-17-2021 25 hydroxy includes fractions if performed Vitamin D Hydroxy (31771) [facility]; [facility] Work Phone: Start: 12-17-2021 Comprehensive metabo lic panel METABOLIC PANEL, COMPREHENSIVE (49321) [facility]; [facility] Work Phone: Start: 12-17-2021 Lipid panel LIPID PANEL (14501) [facility] Work Phone: Start: 08-24-2021 Urinalysis qual/semiquant except immunoassays URINALYSIS (98054) [facility]; [facility] Work Phone: Start: 08-24-2021 Culture bacterial quanttative colony count urine URINE ALONDRA CULTURE (PHU COL COUNT) (33787) [facility]; [facility] Work Phone: Start: 07-14-2021 Procedure Education Eprescribe d prescriptions (G8553) [facility]; [facility] Work Phone: Start: 07-14-2021 Hepatic function panel HEPATIC FUNCTION PANEL (48554) [facility]; [facility] Work Phone: Comment on above: next month Start: 06-12-2021 Comprehensive metabo lic panel Metabolic Panel, Comprehensive (48025) [facility]; [facility] Work Phone: Start: 06-09-2021 Procedure Education Eprescribe d prescriptions (G8553) [facility]; [facility] Work Phone: Start: 05-07-2021 Procedure Education Eprescribe d prescriptions (G8553) [facility]; [facility] Work Phone: Start: 12-08-2020 Assay of magnesium MAGNESIUM (98436) [facility]; [facility] Work Phone: Start: 12-08-2020 Magnesium [Mass/Vol] MAGNESIUM (8373 5) [facility]; [facility] Work Phone: Start: 12-08-2020 Blood count complete auto&auto difrntl wbc CBC W/AUTO DIFF WBC (12060) [facility]; [facility] Work Phone: Start: 12-08-2020 Assay of thyroid stimulating hormone tsh TSH (58298) [facility]; [facility] Work Phone: Start: 12-08-2020 TSH Qn TSH (47696) [facility]; [facility] Work Phone: Start: 12-08-2020 Comprehensive metabo lic panel METABOLIC PANEL, COMPREHENSIVE (67791) [facility]; [facility] Work [...] 25 hydroxy includes fractions if performed CALCIFEDIOL (17603) [facility] Work Phone: Start: 09-16-2019 Urine microalbumin profile [facility] Start: 2019 BONE DENSITY BONE DENSITY [facility] Start: 2019 Bone Density Screening Bone Density Screening [facility] Start: 2019 Pneumococcal Vaccine : 65+ (1 - PCV) Pneumococcal Vaccine: 65+ (1 - PCV) [facility] Start: 2019 Pneumococcal Vaccine : 65+ (1 of 1 - PCV) Pneumococcal Vaccine: 65+ (1 of 1 - PCV) [facility] Start: 2019 PNEUMOCOCCAL: 65+ (1 - PCV) PNEUMOCOCCAL: 65+ (1 - PCV) [facility] Start: 2019 Screening for osteoporosis Bone Density Screening [facility] Start: 08-12-2017 25 hydroxy includes fractions if performed CALCIFEDIOL (12971) [facility] Work Phone: Start: 04-09-2017 DIABETES SCREEN DIABETES SCREEN [facility] Start: 04-09-2017 Diabetes Screening Diabetes Screenin [facility] Start: 08-10-2016 Provider Instruction s for Treatment [facility] Work Phone: Start: 08-07-2015 25 hydroxy includes fractions if performed Vitamin D Hydroxy (25346) [facility] Work Phone: Start: 07-22-2015 Procedure Education Eprescribe d prescriptions (G8553) [facility] Work Phone: Start: 07-22-2015 25 hydroxy includes fractions if performed Vitamin D Hydroxy (51342) [facility] Work Phone: Start: 07-22-2015 Urnls dip stick/tabl et reagent auto microscopy URINALYSIS, W/ MICRO (58346) [facility] Work Phone: Start: 07-22-2015 Blood count complete auto&auto difrntl wbc CBC W/AUTO DIFF WBC (52918) [facility] Work Phone: Start: 07-22-2015 Comprehensive metabo lic panel METABOLIC PANEL, COMPREHENSIVE (46175) [facility] Work Phone: Start: 07-22-2015 Lipid panel LIPID PANEL (55687) [facility] Work Phone: Start: 09-16-2014 Lipid 1996 panel - Serum or Plasma Lipid Screening [facility] Start: 09-16-2014 Lipid panel Lipid Screening [facility] Start: 09-16-2014 LIPID SCREEN LIPID SCREEN [facility] Start: 2014 RSV Vaccine (1 - 1-d ose 60+ series) RSV Vaccine (1 - 1-dose 60+ series) [facility] Start: 03-25-2014 Lipid panel LIPID PANEL (46548) [facility] Work Phone: Start: 03-25-2014 Urnls dip stick/tabl et reagent auto microscopy URINALYSIS, W/ MICRO (55288) [facility] Work Phone: Start: 03-25-2014 Blood count manual c ell count each CBC WITH MANUAL DIFF (10434) [facility] Work Phone: Start: 03-25-2014 Comprehensive metabo lic panel METABOLIC PANEL, COMPREHENSIVE (14275) [facility] Work Phone: Start: 01-24-2013 Provider Instruction s for [facility] Work Phone: Start: 06-15-2012 Mammography [facility] Start: 06-15-2012 Screening for malign ant neoplasm of breast Mammogram Screening [facility] Start: 2004 Pneumococcal Vaccine : 50+ (1 of 1 - PCV) Pneumococcal Vaccine: 50+ (1 of 1 - PCV) [facility] Start: 2004 SHINGRIX VACCINE (1 of 2) SHINGRIX VACCINE (1 of 2) [facility] Start: 1999 COLOGUARD (FIT-DNA) COLOGUARD (FIT-D NA) [facility] Start: 1999 Colonoscopy COLONOSCOPY [facility] Start: 1999 COLORECTAL CANCER SCREENING COLORECTAL CANCER SCREENING [facility] Start: [address] COLONOGRAPHY [facility] Start: 1999 FECAL OCCULT BLOOD FECAL OCCULT BLOO D [facility] Start: 1999 Screening for malign ant neoplasm of colon [facility] Start: 1999 SIGMOIDOSCOPY [facility] Start: 1972 HEPATITIS C SCREENING HEPATITIS C [facility] Start: 1972 Hepatitis C screening Hepatitis C [facility] Start: 02-16-1956 COVID-19 VACCINE (#1) COVID-19 VACCI NE (#1) [facility] Ecg routine ecg w/le ast 12 lds i&r only ECG INTERPRETATION & REPORT ONLY Cardiology Routine Dementia without behavioral disturbance, psychotic disturbance, mood disturbance, or anxiety, unspecified dementia severity, unspecified dementia type (HCC) At high risk for adverse medication event Ordered: 11/23/2024 [facility] Work Phone: Comment on above: Ordered: 11/23/2024 End: 09-17-2024 Mri brain brain stem w/o contrast material MRI BRAIN WO IVCON Radiology Routine Memory loss Cognitive decline 1 Occurrences starting 2023 until 09/17/2024 [facility] Work Phone: Comment on above: 1 [...] [facility] Work Phone: [facility]; [facility] Work Phone: [facility] Immunizations Immunization Date Immunization Notes Care Provider [facility] 01-29-2025 tetanus toxoid, redu amrnie diphtheria toxoid, and acellular pertussis vaccine, adsorbed Dr. Rajat Cummins DO Work Phone: [facility] 10-02-2020 influenza, injectabl e, quadrivalent, preservative free Dr. Rajat Cummins Work Phone: [facility] 10-02-2020 influenza, seasonal, injectable [facility] 10-02-2020 influenza virus vaccine, unspecified formulation Ozzei Robertson Jr., MD Work Phone: [facility] 09-24-2019 influenza, injectabl e, quadrivalent, preservative free Dr. Rajat Cummins Work Phone: [facility] 09-24-2019 influenza, seasonal, injectable [facility] 09-11-2018 influenza, injectabl e, quadrivalent, preservative free Dr. Rajat Cummins Work Phone: [facility] 09-11-2018 influenza, seasonal, injectable [facility] 08-24-2017 influenza, injectabl e, quadrivalent, preservative free Dr. Rajat Cummins Work Phone: [facility] 08-24-2017 influenza, seasonal, injectable [facility] 08-26-2016 influenza, injectabl e, quadrivalent, preservative free Dr. Rajat Cummins Work Phone: [facility] 08-26-2016 influenza, seasonal, injectable [facility] 09-25-2015 influenza, injectabl e, quadrivalent, preservative free Dr. Rajat Cummins Work Phone: [facility] 09-25-2015 influenza, seasonal, injectable [facility] 09-16-2009 tetanus toxoid, redu marnie diphtheria toxoid, and acellular pertussis vaccine, adsorbed Neurology Provider [facility] Payers Date Payer Category Payer Self-pay [id number] 2022 Private Health Insurance [id number] 2022 Unknown [id number] 2021 Unknown [id number] 2020 Medicare [id number] 2020 Medicare [id number] 2014 Unknown [id number] 2005 Unknown [id number] 1954 Unknown [id number] 2.16.84 [id number] Unknown Unknown [id number] 2.16.8 40.1.028793.3.579.2.462 Unknown [id number] 2.16.8 40.1.133639.3.579.2.462 Unknown [id number] 2.16.8 40.1.106266.3.579.2.462 Unknown [id number] 2.16.8 40.1.749386.3.579.2.462 Unknown [id number] 2.16.8 40.1.799009.3.579.2.462 Unknown [id number] 2.16.8 40.1.035963.3.579.2.462 Unknown [id number] 2.16.8 40.1.598810.3.579.2.462 Unknown [id number] 2.16.8 40.1.330279.3.579.2.462 Unknown [id number] 2.16.8 40.1.286981.3.579.2.462 Unknown [id number] 2.16.8 40.1.264430.3.579.2.462 Unknown [id number] 2.16.8 40.1.350063.3.579.2.462 Unknown [id number] 2.16.8 40.1.219544.3.579.2.462 Unknown [id number] 2.16.8 40.1.238928.3.579.2.462 Unknown [id number] 2.16.8 40.1.726153.3.579.2.462 Unknown [id number] 2.16.8 40.1.589464.3.579.2.462 Unknown [id number] 2.16.8 40.1.286814.3.579.2.462 Unknown [id number] 2.16.8 40.1.396515.3.579.2.462 Unknown [id number] 2.16.8 40.1.017368.3.579.2.462 Unknown [id number] 2.16.8 40.1.248381.3.579.2.462 Unknown [id number] 2.16.8 40.1.414053.3.579.2.462 Social History Date Type Detail Facility Start: 07-14-2022 End: 2023 Alcohol Use Alcohol Use [facility] Work Phone: Comment on above: Occasional alcohol u se, Drinks wine 4-6 cups coffee qd Part-time, [employer]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 , Lives with spouse Start: 12-28-2022 End: 12-27-2023 Tobacco smoking status AZIS Unknown if ever smoked [facility] Start: 09-02-2020 Non-smoker [facility] Start: 1955 Sex Assigned At Female [facility] Start: 06-15-2011 End: 05-20-2025 Tobacco smoking status NHIS Never smoked tobacco [facility] Start: 06-15-2011 Tobacco use and exposure Smokeless tobacco non-user [facility] Start: 07-14-2022 End: 06-21-2025 Alcohol intake Current drinker of alcohol (finding) [facility] Start: 07-14-2022 End: 2023 Tobacco use panel [facility] Start: 1955 Sex Assigned At Not on file [facility] National Score (1-10 0), lower number is lower risk 99 [facility] Start: 03-19-2025 Sex Female (finding) [place] [facility] Medical Equipment Procedure Code Equipment Code Equipment [...] serious difficulty hearing No 04/09/2014 10:58 AM Ryann Tucker MA No [facility] 04-09-2014 Are you blind, or do you have serious difficulty seeing, even when wearing glasses No 04/09/2014 10:58 AM Ryann Tucker MA No [facility] 04-09-2014 Do you have serious difficulty walking or climbing stairs No 04/09/2014 10:58 AM Ryann Tucker MA No [facility] 04-09-2014 Do you have difficul ty dressing or bathing No 04/09/2014 10:58 AM EDT SheridanRyann saenz MA No [facility] 04-09-2014 Because of a physica l, mental, or emotional condition, do you have difficulty doing errands alone such as visiting a physician's office or shopping No 04/09/2014 10:58 AM EDT Ryann Swartz MA No [facility] Mental Status Date Assessment Result Facility 04-09-2014 Because of a physica l, mental, or emotional condition, do you have serious difficulty concentrating, remembering, or making decisions No 04/09/2014 10:58 AM EDT SheridanRyann beckwith MA No [facility] Clinical Notes 06-08-2023 to 06-25-2025 Telephone Encounter - Italia Ruvalcaba LPN - 06/25/2025 9:11 AM EDTTelephone Encounter - Italia Ruvalcaba LPN - 06/25/2025 9:11 AM EDTOzzie Robertson Jr., MD - 06/21/2025 11:44 AM EDT Note Date & Type Note Facility 06-25-2025 Telephone encounter Note OV note from 06/21/[address] Robertson forwarded to Dr Rajat Cummins. Italia Ruvalcaba LPN [facility] 06-25-2025 Miscellaneous Notes OV note from 06/21/[address] Robertson forwarded to Dr Rajat Cummins. Italia Ruvalcaba LPN documented in this encounter [facility] 06-21-2025 Note HNO ID: [id number] Author: OZZIE ROBERTSON JR, MD Service: ? Author Type: Physician Type: Progress Notes Filed: 06/21/2025 14:05 Note Text: ESTABLISHED PATIENT VISIT CHIEF COMPLAINT: Follow Up HISTORY OF PRESENT ILLNESS: Erin Dyson is a 69 year old female,with a PMH significant for and per last office visit note of Mason BOWEN on 02/12/25: 1. Dementia without behavioral disturbance, psychotic disturbance, [...] this time. Deferring any repeat MoCA today. Patient reports she feels she is still doing good. Has been doing research on other things she can do for memory. She would like to stop Namenda. States following someone on [employer] endorsing use of supplements. Still working. Lowest MOCA was 08/19/23: . Highest in 04/2024 after starting Namenda: . MODIFIED MOCA: Immediate recall: 04/01 Number repeat: 11/29 Sentence repeat: 12/30 Abstract: 2 Serial 7s: 11/30 Namin/3 A tap: 11/28 Orientation: 05/03 Delayed recall: 01/02 (01/30 with cues). Words being with F: 0/ Cube drawin Clock drawin/3 TOTAL Sleeping well. No s/s to suggest EITAN. No driving issues. Still working. REVIEW OF SYSTEMS GENERAL:No weight loss, malaise [...] since patient's last visit have been reviewed. Vitamin B12 Date Value Ref Range Status 2023 780 232 - 1,245 pg/mL Final TSH Date Value Ref Range Status 2023 1.930 0.270 - 4.200 mIU/L Final MEDICATIONS: memantine (NAMENDA) 5 mg tablet Take [...] Take 1 tablet by mouth once daily. HISTORIES PAST MEDICAL HISTORY Diagnosis Date NONE FAMILY HISTORY Problem Relation Age of Onset Breast Cancer Paternal Grandmother Hypertension Mother Cancer Father brain SOCIAL HISTORY Social History Tobacco Use Smoking status: Never Smokeless tobacco: Never Substance Use Topics Alcohol use: Yes Comment: occassional Drug use: No PHYSICAL EXAMINATION BP 133/82 Pulse 71 Resp 16 Wt 62.5 kg (137 lb 12.8 oz) LMP 03/27/2006 SpO2 97% GENERAL EXAM: General appearance: NAD, pleasant. HEENT: NC/AT, nasal congestion absent, no oral lesions, membranes moist. NECK: No masses, supple. Lungs: CTA bilaterally. CV: RRR nl S1, S2, Extr: No cyanosis, clubbing or edema. Skin: Cool to touch. NEUROLOGICAL EXAM: General: Awake, alert, oriented (more content not included)... [facility] 06-21-2025 History of Presen t illness Narrative ESTABLISHED PATIENT VISIT CHIEF COMPLAINT: Follow Up HISTORY OF PRESENT ILLNESS: Erin Dyson is a 69 year old female,with a PMH significant for and per last office visit note of Mason BOWEN on 02/12/25: 1. Dementia without behavioral disturbance, psychotic disturbance, [...] this time. Deferring any repeat MoCA today. Patient reports she feels she is still doing good. Has been doing research on other things she can do for memory. She would like to stop Namenda. States following someone on [employer] endorsing use of supplements. Still working. Lowest MOCA was 08/19/23: . Highest in 04/2024 after starting Namenda: . MODIFIED MOCA: Immediate recall: 04/01 Number repeat: 11/29 Sentence repeat: 12/30 Abstract: 12/30 Serial 7s: 11/30 Namin/3 A tap: 11/28 Orientation: 05/03 Delayed recall: 2 (3/5 with cues). Words being with F: 0 Cube drawin Clock drawin/3 TOTAL Sleeping well. No s/s to suggest EITAN. No driving issues. Still working. REVIEW OF SYSTEMS GENERAL:No weight loss, malaise [...] since patient's last visit have been reviewed. Vitamin B12 Date Value Ref Range Status 2023 780 232 - 1,245 pg/mL Final TSH Date Value Ref Range Status 2023 1.930 0.270 - 4.200 mIU/L Final MEDICATIONS: memantine (NAMENDA) 5 mg tablet Take [...] Take 1 tablet by mouth once daily. HISTORIES PAST MEDICAL HISTORY Diagnosis Date NONE FAMILY HISTORY Problem Relation Age of Onset Breast Cancer Paternal Grandmother Hypertension Mother Cancer Father brain SOCIAL HISTORY Social History Tobacco Use Smoking status: Never Smokeless tobacco: Never Substance Use Topics Alcohol use: Yes Comment: occassional Drug use: No PHYSICAL EXAMINATION BP 133/82 Pulse 71 Resp 16 Wt 62.5 kg (137 lb 12.8 oz) LMP 03/27/2006 SpO2 97% GENERAL EXAM: General appearance: NAD, pleasant. HEENT: NC/AT, nasal congestion absent, no oral lesions, membranes moist. NECK: No masses, supple. Lungs: CTA bilaterally. CV: RRR nl S1, S2, Extr: No cyanosis, clubbing or edema. Skin: Cool to touch. NEUROLOGICAL EXAM: General: Awake, alert, oriented x3 (person,place,time), fluent, no dysarthria; MOCA above. CN: PERRL, EOMI and without nystagmus, VFF to confrontation, facial sensation and strength are normal and symmetric, hearing is intact to finger rub bilaterally, palate and tongue movements are intact and symmetric. SCM and trapezius strength normal. Motor: Normal tone, bulk and strength (5/5) bilaterally (throughout extremities x4). Coordination: FNF, TAD, HTS intact. No tremors. Sensation: LT, PP, vibration, temperature intact throughout. No evidence of neglect. Gait: Stable with normal stride and arm swing.l. Assessment and Plan: ASSESSMENT/PLAN: 1. Dementia without behavioral disturbance, psychotic disturbance, mood disturbance, or anxiety, unspecified dementia severity, unspecified dementia type (HCC) - ICD9: 294.20, ICD10: F03.90 (primary diagnosis) 2. Family history of dementia - ICD9: V17.2, ICD10: Z81.8 3. Cognitive decline - ICD9: 294.9, ICD10: R41.89 4. Memory loss - ICD9: 780.93, ICD10: R41.3 Patient being treated as early dementia - no prior MOCA performed (as above) that has been normal; 9 percentile hippocampi on MRI brain quant; family history of dementia. While MOCA improved after starting Namenda and being on 5mg BID, today, score has declined from 25 to 22 despite compliance with medication (note score may have been lower as patient did correct clock drawing after 3 attempts). Prior workup for other causes of symptoms otherwise unremarkable. While she continues to work, no witnesses present to confirm that she is having no issues with her responsibilities and tasks. Pt is considering stopping Namenda as her would like her to try supplements. Explained risks/benefits of such as well as stopping Namenda. Explained that if she was to stop Namenda that she should reduce dose to 5mg daily for 1 week and then d/c. However, I also explained that I will have her back in 3 months. If MOCA continues to decline, then would recommend either restarting and/or increasing Namenda to 10mg BID (via appropriate titration). SE and ADRs reviewed with pt. Pt agrees with plan. Again, pt understands risks of stopping meds, as well as starting supplements (she is not sure which supplements she would be using). Again, follow up in 3 months or sooner prn. Will also attempt to obtain recent BMP and CBC from PCP office. Ozzie Robertson MD I spent a total of 30+ minutes on the date of the service which included preparing to see the patient, [id number] patient care, completing clinical documentation, obtaining and/or reviewing separately obtained history, performing a medically appropriate examination, counseling and educating the patient/family/caregiver, and communicating results to the patient/family/caregiver. documented in this encounter [facility] 05-28-2025 Radiology Diagnostic study note [facility] Services [address] [place] [id number] Chest PA and Lateral MR#: [id number] Acct: [id number] Name: ERIN DYSON APOLLO Rep #: [id number] : 1955 F 69 From: Ai Johnston MD PCP: Dr. Rajat Cummins DO Status: REG CLI Study:Chest PA and Lateral Date of Exam: 05/28/25 Exam# [id number] Ordering Dr: Emelia Cummins ra, DO PROCEDURE: CHEST PA AND LATERAL 05/28/2025 REASON FOR EXAM: ABNORMAL LUNG SOUNDS TECHNIQUE: CHEST PA AND LATERAL COMPARISON: December 27, 2023 FINDINGS: Heart size and mediastinal configuration are within normal limits. There is no focal infiltrate or consolidation. There is no pneumothorax or effusion. Aortic calcifications are visible. There is no visible acute bony abnormality. RAD/Chest PA and Lateral IMPRESSION: No acute process is identified in the chest. Reading Location: [place] CC: Dr. Rajat Cummins DO ~ Potato Inspector: Signed [facility] 05-19-2025 Evaluation note Diagnosis Onset Date Resolution URI (upper respiratory infection) acute May 19, 2025 11:45am [facility] Work Phone: 1(140) 601-511803-18-2025 Instructions* Patient Instructions* Danni Gurrola PA-C - 02/12/2025 3:58 PM EDT Continue with memantine 5mg twice daily Follow up with Dr. Robertson as planned in April. [facility]25 NoteHNO ID: [id number] Author: DANNI GURROLA PA-C Service: ? Author Type: Physician Check Scaler Type: Progress Notes Filed: 02/12/2025 16:07 Note Text: [facility] Name: Erin Dyson Age: [age] year old Gender: female Primary Care Provider: Rajat Cummins DO Assessment/Plan: 02/12/2025 - General NeurologyDanni PA-C ASSESSMENT ASSESSMENT/PLAN: 1. Dementia without behavioral [...] states she had an EKG done at [facility] but is unsure how long ago. [...] 400 Units by mouth (more content not included)...[facility]03-18-2025 History of Present illness Narrative* Danni Gurrola PA-C - 02/12/2025 3:35 PM EDT Images from the original note were not included. [facility] Name: Erin Dyson Age: [age] year old Gender: female Primary Care Provider: Rajat Cummins, Assessment/Plan: 02/12/2025 - General NeurologyDanni PA-C ASSESSMENT ASSESSMENT/PLAN: 1. Dementia without behavioral [...] has been tolerating it well until recently. Sheis concerned that it might be contributing to [...] states she had an EKG done at [facility] but is unsure how long ago. There was some initial desire to start Aricept as her sister was on this medication but no longer wants to dothis. No other new concerns that would warrant [...] However, patient not wanting to increase dose [id number] BID to 10mg BID at this time. [...] I malformation.... This note was dictated using [employer] speech recognition software and may contain some errors that were a result of the program not accurately transcribing what was dictated, despite efforts to make corrections. Note that unless urgent, test and MRI results will be discussed at next follow- up visit. PROMIS (Patient-Reported Outcomes Measurement Information System) [...] which included preparing to see the patient, [id number] patient care, completing clinical documentation, obtaining and/or reviewing separately obtained history, performing a medically appropriate examination, counseling and educating the pat ient/family/caregiver, and ordering medications, tests, or procedures. * Nohemy Dudley LPN - 02/12/2025 3:33 PM EDT documented in [facility]03-[facility]-2025 NoteHNO ID: [id number] Author: NOHEMY DUDLEY LPN Service: ? Author Type: LICENSED NURSE Type: Progress Notes Filed: 02/12/2025 16:07 Note Text:[facility]03-04-2025 Evaluation note* Diagnosis Onset Date Resolution Status Admit Date Cat scratch of left hand acute January 29, 2025 11:38am [facility] Work Phone: 1(741) 442-633703-04-2025 Evaluation note* Diagnosis Onset Date Resolution Status Admit Date Cat scratch of left hand acute January 29, 2025 11:38am URI (upper respiratory infection) acute May 19, 2025 11:45am [facility] Work Phone: 1(624) 329-357302-27-2025 Telephone encounter Note* Telephone Encounter - Nohemy Dudley LPN - 01/24/2025 4:12 PM EST Called patient, no answer. Left voicemail that there are no sooner appointment. Nohemy Dudley LPN January 24, 2025 4:17 PM [facility]02-27-2025 Miscellaneous Notes* Telephone Encounter - Nohemy Dudley [...] 24, 2025 3:18 PM documented in this encounterR[facility]02-27-2025 Telephone encounter Note * Telephone Encounter - [...] Alysha Torres January 24, 2025 3:18 PM [facility]01-28-2025 Telephone encounter Note* Telephone Encounter - Geneva Mejia LPN - 12/25/2024 1:16 PM EST In regards to TE 11/23/24: Pt calls to ask why she needs a EKG before switching from Namenda 5 mg bid to Aricept. Pt is askingif there is an issue between Aricept and the heart. Pt is asking if feels Aricept is ok for her to switch to. Pt reports before she gets an EKG done she would like to know the reasoning behind needing to get one done. Geneva Mejia LPN [facility]01-28-2025 Miscellaneous Notes* Telephone Encounter - Geneva Mejia [...] done. Geneva Mejia LPN documented in this encounterR[facility]12-27-2024 Telephone encounter Note * Telephone Encounter - Ozzie Robertson Jr., MD - 11/23/2024 6:27 PM EST Please schedule pt follow up with Mason BOWEN to review meds and discuss further treatment options. Will order ECG. Ozzie Robertson MD [facility]12-27-2024 Miscellaneous Notes* Telephone Encounter - Ozzie Robertson [...] Donepezil. Gricelda Reyez RN documented in this encounterRiverside [facility]12-27-2024 Telephone encounter Note * Telephone Encounter - [...] Dudley LPN November 23, 2024 3:28 PM [place]12-27-2024 Telephone encounter Note* Telephone Encounter - Ozzie Robertson Jr., MD - 11/23/2024 2:48 PM EST Please see if pt has had recent ECG. If not, would like pt to have one to confirm that Aricept would be safe from cardiac standpoint. Ozzie Robertson MD [place]12-27-2024 Telephone encounter Note* Telephone Encounter - Gricelda [...] Namenda to start Donepezil. Gricelda Reyez RN [place]12-06-2024 NoteHNO ID: [id number] Author: OZZIE ROBERTSON JR, MD Service: ? [...] and ADRs. Discussed pr (more content not included)...[facility]12-06-2024 History of Present illness Narrative* Ozzie Robertson [...] However, patient not wanting to increase dose [id number] BID to 10mg BID at this time. Encouraged brain exercises, social interaction. No restrictions at this time. Reviewed with pt SE and ADRs. Discussed prognosis of degenerative processes. Will have patient follow up in 6 months or sooner prn. Ozzie Robertson MD I spent a total of 22 minutes on the date of the service which included preparing to see the patient, [id number] patient care, completing clinical documentation, obtaining and/or reviewing separately obtained history, performing a medically appropriate examination, counseling and educating the pat ient/family/caregiver, ordering medications, tests, or procedures, and communicating results to thepatient/family/caregiver. Medical Decision Making: Problems: Low: Stable chronic illness Risk: Moderate: Drug management Medical Decision Making Level: 3 - Low * Nohemy Dudley LPN - 11/02/2024 3:18 PM EST documented in this encounterR[facility]12-06-2024 NoteHNO ID: [id number] Author: NOHEMY DUDLEY LPN Service: ? Author Type: LICENSED NURSE Type: Progress Notes Filed: 11/02/2024 15:58 Note Text:[facility]09-03-2024 Telephone encounter Note* Telephone Encounter - Jesika Luther RN - 07/31/2024 8:27 AM EDT Patient has appointment scheduled with provider on 11/02/2024. Jesika Luther RN [facility]09-03-2024 Miscellaneous Notes* Telephone Encounter - Jesika Luther [...] with this provider/department: No Transferred pt to [facility] to get 6 month follow up apt booked. Requested Prescriptions Pending Prescriptions Disp Refills memantine (NAMENDA) 5 mg tablet 180 tablet 0 Sig: Take 1 tablet by mouth two times a day. Pavithra Lucio LPN July 31, 2024 8:21 AM documented in this encounterRiverside [facility]09-03-2024 Telephone encounter Note * Telephone Encounter - [...] with this provider/department: No Transferred pt to [facility] to get 6 month follow up apt booked. Requested Prescriptions Pending Prescriptions Disp Refills memantine (NAMENDA) 5 mg tablet 180 tablet 0 Sig: Take 1 tablet by mouth two times a day. Pavithra Lucio LPN July 31, 2024 8:21 AM [facility]06-07-2024 History of Present illness Narrative* Ozzie Robertson [...] expresses no interest in being seen in [facility] and would not want [...] that at this time, lost connection with [employer] due to system downtime. MOCA was completed. [...] Comment: occassional Drug use: No PHYSICAL EXAMINATION [facility] 03/27/2006 GENERAL EXAM: General appearance: NAD, pleasant. [...] which included preparing to see the patient, [id number] patient care, completing clinical documentation, obtaining and/or reviewing separately obtained history, performing a medically appropriate examination, counseling and educating the pat ient/family/caregiver, ordering medications, tests, or procedures, and communicating results to thepatient/family/caregiver. [facility] Telephone encounter Note * Telephone Encounter - Radha Fermin LPN - 04/09/2024 2:10 PM EDT Please see attached labs: Scan on 04/09/2024 9:20 AM by Provider, External, PABubbaC: Miscellaneous Lab Radha Fermin LPN [facility]05-13-[facility] Miscellaneous Notes* Telephone Encounter - Radha Fermin LPN - 04/09/2024 2:10 PM EDT Please see attached labs: Scan on 04/09/2024 9:20 AM by Provider, External, OLVIN: Miscellaneous Lab Radha Fermin LPN * Telephone [...] expresses no interest in being seen in [facility] and would not want [...] you. Jesika Luther RN. documented in this encounterR[facility]05-[facility]24 Telephone encounter Note * Telephone Encounter - Radha Fermin LPN - 04/09/2024 8:19 AM EDT Fax request sent to PCP for lab results. Radha Fermin LPN [facility]05-10-2024 Telephone encounter Note* Telephone Encounter - Teresa [...] expresses no interest in being seen in [facility] and would not want [...] given med changeand reeval by MOCA. Ozzie Rboertson MD I [facility]05-10-[facility]24 Telephone encounter Note* Telephone Encounter - Jesika [...] Please advise. Thank you. Jesika Luther RN. [facility]04-09-2024 Discharge summary Author Fermin Lynch [facility] March 06, 2024 10:17am Note Date/Time March 06, 2024 10:1 7am [facility] Physical Therapy [facility] [address] [place] [address]. [address] [place] [address] / REHABILITATION SERVICES DISCHARGE SUMMARY MR#: [id number] Acct: [id number] Name: ERIN DYSON Rep #: [id number] : 1955 68 From: Fermin BLEDSOE T Referring Dr.: Dr. Dakota Alba MD Status: REG RCR [email or web address] MEDICARE A ONLY Patient Information Patient Information: [...] by the physician. Thank you! Fermin Lynch, DPT Balance/Gait/Functional tests Balance/Special Test Scores Quick DASH Score: 25.0000 <Electronically signed by Fermin Lynch DPT> 03/06/24 1017 CC: Dr. Dakota Alba MD; Dr. Rajat Cummins, DO ~ CLS Signed [facility] Work Phone: 1(364) 670-227303-12-2024 Miscellaneous Notes* Telephone Encounter - Pavithra Lucio [...] advise, Jesika Luther RN documented in this encounterR[facility]02-02-[facility] History of Present illness Narrative* Ozzie Robertson [...] expresses no interest in being [facility] and [...] which included preparing to see the patient, [id number] patient care, completing clinical documentation, obtaining and/or reviewing separately obtained history, performing a medically appropriate examination, counseling and educating the pa tient/family/caregiver, ordering medications, tests, or procedures, and communicating results to the patient/family/caregiver. * Teresa Lucio LPN - 12/30/2023 8:58 AM EST documented in this encounterR[facility]12-18-2023 Miscellaneous Notes* Telephone Encounter - Maureen Garrison - 11/14/2023 11:08 AM EST 1st attempt, left VM about canceled appointment with Danni Gurrola on 01/13. Need to reschedule. documented in this encounterR[facility]12-15-2023 Miscellaneous Notes* Telephone Encounter - Pavithra Lucio [...] advise, Gricelda Reyez RN documented in this encounterR[facility]11-15-2023 Miscellaneous Notes* Telephone Encounter - Danni Gurrola PA-C - 10/12/2023 9:15 AM EST Sent Namenda to [facility] pharmacy. * Telephone Encounter - Geneva Mejia LPN - 10/11/2023 4:15 PM EST Pt reports she went to [facility] pickup memantine 5 mg from [facility] and was advised that insurance requires a prior auth for this med. Geneva Mejia LPN documented in this encounterRiverside [facility] Hospital11-08-2023 Miscellaneous Notes* Telephone Encounter - Radha Fermin LPN - 10/05/2023 4:04 PM EST TC to pt, scheduled October 112022 with Danni Gurrola. Results faxed to PCP per request. Radha Fermin LPN * Telephone Encounter - Ozzie Robertson Jr., MD - 10/05/2023 3:19 PM EST Please get pt sooner appt with PA or MARYANN MONTANO to go over results. Thank you, Ozzie Robertson MD * Telephone Encounter - Saw Higuera LPN - 10/04/2023 2:02 PM EST Pt calling stating she had MRI done today for Dr Robertson. Pt is wanting to have copy of MRI results also sent to her pcp Dr Rajat Cummins. Saw Higuera [employer] documented in this encounterR[facility]11-07-2023 History of Present illness Narrative* Kerry Beltre [...] RT Hannah(R) October 04, 2023 1:09 PM documented in this encounterR[facility]09-22-2023 History of Present illness Narrative* Ozzie Robertson [...] old female, BMI 23.49 kg/m2 with a Hsignificant for that noted below who presents with [...] MODIFIED MOCA: Immediate Recall: 04/01 Repeat numbers: 2/2 Repeat sentence: 2/ Serial 7s: 100-97 0/3 Abstract: 11/29 Orientation: [...] which included preparing to see the patient, [id number] patient care, completing clinical documentation, obtaining and/or reviewing separately obtained history, performing a medically appropriate examination, counseling and educating the pa tient/family/caregiver, and ordering medications, tests, or procedures. * Jeny RadhaAUBREE bueno - 2023 10:27 AM EDT There is no data to display for this encounter documented in this encounterRiverside [facility]08-08-2023 Discharge summary Author Karime Ariza [facility] July 05, 2023 7:55am Note Date/Time July 05, 2023 7:5 5am [facility] [address] [place] [address] / REHABILITATION SERVICES DISCHARGE SUMMARY MR#: [id number] Acct: [id number] Name: ERIN DYSON Rep #: [id number] : 1955 67 From: Karime Cerrato Referring DrChau: Yamilex Arnold DO Status: REG RCR Insurance: [email or web address] SELF PAY INSURANCE Discharge Summary D/C summary: [...] Information Discharge Comments: DC PT back to Dr. d/c sentence: If there are questions or concerns regarding this patient's physical therapy, please feel free to call me at [phone]. Thank you for the referral of thispatient. Sincerely, GONZALO Farrell Balance/Gait/Functional tests Balance/Special Test Scores Quick DASH Score: 47.7250 <Electronically signed by Karime Ariza MPT> 07/05/23 0755 CC: Dr. Rajat Cummins, DO; Yamilex Arnold, DO ~ Signed [facility] Work Phone: [phone]) 229-291507-12-2023 Miscellaneous Notes* Telephone Encounter - Charisse Ramirez [...] chart. Radha Fermin LPN [facility] encounter[facility] noteNo assessment information availableWDunlap Memorial Hospital Work Phone: evaluation note* Diagnosis Onset Date Resolution Status Hemorrhoid chronic Acute bronchitis [facility] Work Phone: evaluation note* Diagnosis Onset Date Resolution Status Acute bronchitis [facility] Work Phone: evaluation note* Diagnosis Memory loss- Primary Cognitive decline Unspecified persistent mental disorders due to conditions classified elsewhere documented in this encounter [facility] note* Diagnosis Memory loss Cognitive decline Unspecified persistent mental disorders due to conditions classified elsewhere documented in this encounter [facility] note* Diagnosis Cognitive decline- Primary Unspecified persistent mental disorders due to conditions classified elsewhere Memory loss documented in this encounter [facility] note* Diagnosis Onset Date Resolution Status COVID-19 [facility] Work Phone: evaluation note* Diagnosis Cognitive decline- Primary Unspecified persistent mental disorders due to conditions classified elsewhere Memory loss documented in this encounter [facility] note* Diagnosis Dementia without behavioral disturbance, psychotic disturbance, mood disturbance, or anxiety, unspecified dementia severity, unspecified dementia type (HCC)- Primary At high risk for adverse medication event documented in this encounter [facility] note* Diagnosis Dementia without behavioral disturbance, psychotic disturbance, mood disturbance, or anxiety, unspecified dementia severity, unspecified dementia type (HCC)- Primary Cognitive decline Unspecified persistent mental disorders due to conditions classified elsewhere Memory loss documented in this encounter [facility] note* Diagnosis Dementia without behavioral disturbance, psychotic disturbance, mood disturbance, or anxiety, unspecified dementia severity, unspecified dementia type (HCC)- Primary Family history of dementia Family history of other neurological diseases Cognitive decline Unspecified persistent mental disorders due to conditions classified elsewhere Memory loss documented in this encounter [facility]* Name Dates Details How to Access Health Informa tion Online using Patient Portal and [employer] Apps Indication:Non-smoker Start:08-Dec-2020 Instruction Type:Patient Education Patient [...] Informa tion Online using Patient Portal and [employer] Apps Indication:Non-smoker Start:08-Dec-2020 Instruction Type:Patient Education Patient [...] Informa tion Online using Patient Portal and [employer] Apps Indication:Non-smoker Start:07-May-2021 Instruction Type:Patient Education Patient Instructions Indication:Non-smoker Start:07-May-2021 Instruction Type:Provider Instructions for Treatment How to Access Health Informa tion Online using Patient Portal and [employer] Apps Indication:Non-smoker Start:08-Dec-2020 Instruction Type:Patient Education Patient [...] tion Online using Patient Portal and [employer]rd [employer] Apps Indication:Chest pain Start:09-Jun-2021 Instruction Type:Patient Education How to Access Health Informa tion Online using Patient Portal and [employer] Apps Indication:Non-smoker Start:08-Dec-2020 Instruction Type:Patient Education Patient [...] tion Online using Patient Portal and [employer]rd [employer] Apps Indication:Chest pain Start:09-Jun-2021 Instruction Type:Patient Education How to Access Health Informa tion Online using Patient Portal and [employer] Apps Indication:Non-smoker Start:08-Dec-2020 Instruction Type:Patient Education Patient [...] tion Online using Patient Portal and [employer] Apps Indication:Chest pain Start:09-Jun-2021 Instruction Type:Patient Education How to Access Health Informa tion Online using Patient Portal and [employer] Apps Indication:Non-smoker Start:08-Dec-2020 Instruction Type:Patient Education Patient [...] tion Online using Patient Portal and [employer] Apps Indication:Non-smoker Start:14-Jul-2021 Instruction Type:Patient Education Patient Instructions Indication:Chest pain Start:09-Jun-2021 Instruction Type:Provider Instructions for Treatment How to Access Health Informa tion Online using Patient Portal and [employer] Apps Indication:Chest pain Start:09-Jun-2021 Instruction Type:Patient Education How to Access Health Informa tion Online using Patient Portal and [employer] Apps Indication:Non-smoker Start:08-Dec-2020 Instruction Type:Patient Education Patient [...] tion Online using Patient Portal and [employer] Apps Indication:Non-smoker Start:14-Jul-2021 Instruction Type:Patient Education Patient Instructions Indication:Chest pain Start:09-Jun-2021 Instruction Type:Provider Instructions for Treatment How to Access Health Informa tion Online using Patient Portal and [employer] Apps Indication:Chest pain Start:09-Jun-2021 Instruction Type:Patient Education How to Access Health Informa tion Online using Patient Portal and [employer] Apps Indication:Non-smoker Start:08-Dec-2020 Instruction Type:Patient Education Patient [...] tion Online using Patient Portal and [employer] Apps Indication:Non-smoker Start:14-Jul-2021 Instruction Type:Patient Education Patient Instructions Indication:Chest pain Start:09-Jun-2021 Instruction Type:Provider Instructions for Treatment How to Access Health Informa tion Online using Patient Portal and [employer] Apps Indication:Chest pain Start:09-Jun-2021 Instruction Type:Patient Education How to Access Health Informa tion Online using Patient Portal and [employer] Apps Indication:Non-smoker Start:08-Dec-2020 Instruction Type:Patient Education Patient [...] tion Online using Patient Portal and [employer] Apps Indication:Non-smoker Start:14-Jul-2021 Instruction Type:Patient Education Patient Instructions Indication:Chest pain Start:09-Jun-2021 Instruction Type:Provider Instructions for Treatment How to Access Health Informa tion Online using Patient Portal and [employer] Apps Indication:Chest pain Start:09-Jun-2021 Instruction Type:Patient Education How to Access Health Informa tion Online using Patient Portal and [employer] Apps Indication:Non-smoker Start:08-Dec-2020 Instruction Type:Patient Education Patient [...] tion Online using Patient Portal and [employer] Apps Indication:Hyperlipidemia Start:29-Dec-2021 Instruction Type:Patient Education Patient Instructions Indication:Non-smoker Start:14-Jul-2021 Instruction Type:Provider Instructions for Treatment How to Access Health Informa tion Online using Patient Portal and [employer] Apps Indication:Non-smoker Start:14-Jul-2021 Instruction Type:Patient Education Patient Instructions Indication:Chest pain Start:09-Jun-2021 Instruction Type:Provider Instructions for Treatment How to Access Health Informa tion Online using Patient Portal and [employer] Apps Indication:Chest pain Start:09-Jun-2021 Instruction Type:Patient Education How to Access Health Informa tion Online using Patient Portal and [employer] Apps Indication:Non-smoker Start:08-Dec-2020 Instruction Type:Patient Education Patient [...] tion Online using Patient Portal and [employer] Apps Indication:Hyperlipidemia Start:29-Dec-2021 Instruction Type:Patient Education Patient Instructions Indication:Non-smoker Start:14-Jul-2021 Instruction Type:Provider Instructions for Treatment How to Access Health Informa tion Online using Patient Portal and [employer] Apps Indication:Non-smoker Start:14-Jul-2021 Instruction Type:Patient Education Patient Instructions Indication:Chest pain Start:09-Jun-2021 Instruction Type:Provider Instructions for Treatment How to Access Health Informa tion Online using Patient Portal and [employer] Apps Indication:Chest pain Start:09-Jun-2021 Instruction Type:Patient Education How to Access Health Informa tion Online using Patient Portal and [employer] Apps Indication:Non-smoker Start:08-Dec-2020 Instruction Type:Patient Education Patient [...] tion Online using Patient Portal and [employer] Apps Indication:Unspecified Diagnosis Start:28-Apr-2022 Instruction Type:Patient Education Patient Instructions Indication:Hyperlipidemia Start:29-Dec-2021 Instruction Type:Provider Instructions for Treatment How to Access Health Informa tion Online using Patient Portal and [employer] Apps Indication:Hyperlipidemia Start:29-Dec-2021 Instruction Type:Patient Education Patient Instructions Indication:Non-smoker Start:14-Jul-2021 Instruction Type:Provider Instructions for Treatment How to Access Health Informa tion Online using Patient Portal and [employer] Apps Indication:Non-smoker Start:14-Jul-2021 Instruction Type:Patient Education Patient Instructions Indication:Chest pain Start:09-Jun-2021 Instruction Type:Provider Instructions for Treatment How to Access Health Informa tion Online using Patient Portal and [employer] Apps Indication:Chest pain Start:09-Jun-2021 Instruction Type:Patient Education How to Access Health Informa tion Online using Patient Portal and [employer] Apps Indication:Non-smoker Start:08-Dec-2020 Instruction Type:Patient Education Patient [...] tion Online using Patient Portal and [employer] Apps Indication:COVID Start:28-Apr-2022 Instruction Type:Patient Education Patient Instructions Indication:Hyperlipidemia Start:29-Dec-2021 Instruction Type:Provider Instructions for Treatment How to Access Health Informa tion Online using Patient Portal and [employer] Apps Indication:Hyperlipidemia Start:29-Dec-2021 Instruction Type:Patient Education Patient Instructions Indication:Non-smoker Start:14-Jul-2021 Instruction Type:Provider Instructions for Treatment How to Access Health Informa tion Online using Patient Portal and [employer] Apps Indication:Non-smoker Start:14-Jul-2021 Instruction Type:Patient Education Patient Instructions Indication:Chest pain Start:09-Jun-2021 Instruction Type:Provider Instructions for Treatment How to Access Health Informa tion Online using Patient Portal and [employer] Apps Indication:Chest pain Start:09-Jun-2021 Instruction Type:Patient Education How to Access Health Informa tion Online using Patient Portal and [employer] Apps Indication:Non-smoker Start:08-Dec-2020 Instruction Type:Patient Education Patient [...] tion Online using Patient Portal and [employer] Apps Indication:BMI 24.0-24.9, adult Start:09-Jul-2022 Instruction Type:Patient Education Patient Instructions Indication:COVID Start:28-Apr-2022 Instruction Type:Provider Instructions for Treatment How to Access Health Informa tion Online using Patient Portal and [employer] Apps Indication:COVID Start:28-Apr-2022 Instruction Type:Patient Education Patient Instructions Indication:Hyperlipidemia Start:29-Dec-2021 Instruction Type:Provider Instructions for Treatment How to Access Health Informa tion Online using Patient Portal and [employer] Apps Indication:Hyperlipidemia Start:29-Dec-2021 Instruction Type:Patient Education Patient Instructions Indication:Non-smoker Start:14-Jul-2021 Instruction Type:Provider Instructions for Treatment How to Access Health Informa tion Online using Patient Portal and [employer] Apps Indication:Non-smoker Start:14-Jul-2021 Instruction Type:Patient Education Patient Instructions Indication:Chest pain Start:09-Jun-2021 Instruction Type:Provider Instructions for Treatment How to Access Health Informa tion Online using Patient Portal and [employer] Apps Indication:Chest pain Start:09-Jun-2021 Instruction Type:Patient Education How to Access Health Informa tion Online using Patient Portal and [employer] Apps Indication:Non-smoker Start:08-Dec-2020 Instruction Type:Patient Education Patient [...] tion Online using Patient Portal and [employer] Apps Indication:BMI 24.0-24.9, adult Start:09-Jul-2022 Instruction Type:Patient Education Patient Instructions Indication:COVID Start:28-Apr-2022 Instruction Type:Provider Instructions for Treatment How to Access Health Informa tion Online using Patient Portal and [employer] Apps Indication:COVID Start:28-Apr-2022 Instruction Type:Patient Education Patient Instructions Indication:Hyperlipidemia Start:29-Dec-2021 Instruction Type:Provider Instructions for Treatment How to Access Health Informa tion Online using Patient Portal and [employer] Apps Indication:Hyperlipidemia Start:29-Dec-2021 Instruction Type:Patient Education Patient Instructions Indication:Non-smoker Start:14-Jul-2021 Instruction Type:Provider Instructions for Treatment How to Access Health Informa tion Online using Patient Portal and [employer] Apps Indication:Non-smoker Start:14-Jul-2021 Instruction Type:Patient Education Patient Instructions Indication:Chest pain Start:09-Jun-2021 Instruction Type:Provider Instructions for Treatment How to Access Health Informa tion Online using Patient Portal and [employer] Apps Indication:Chest pain Start:09-Jun-2021 Instruction Type:Patient Education How to Access Health Informa tion Online using Patient Portal and [employer] Apps Indication:Non-smoker Start:08-Dec-2020 Instruction Type:Patient Education Patient [...] tion Online using Patient Portal and [employer] Apps Indication:Non-smoker Start:11-Jan-2023 Instruction Type:Patient Education Patient Instructions Indication:BMI 24.0-24.9, adult Start:09-Jul-2022 Instruction Type:Provider Instructions for Treatment How to Access Health Informa tion Online using Patient Portal and [employer] Apps Indication:BMI 24.0-24.9, adult Start:09-Jul-2022 Instruction Type:Patient Education Patient Instructions Indication:COVID Start:28-Apr-2022 Instruction Type:Provider Instructions for Treatment How to Access Health Informa tion Online using Patient Portal and [employer] Apps Indication:COVID Start:28-Apr-2022 Instruction Type:Patient Education Patient Instructions Indication:Hyperlipidemia Start:29-Dec-2021 Instruction Type:Provider Instructions for Treatment How to Access Health Informa tion Online using Patient Portal and [employer] Apps Indication:Hyperlipidemia Start:29-Dec-2021 Instruction Type:Patient Education Patient Instructions Indication:Non-smoker Start:14-Jul-2021 Instruction Type:Provider Instructions for Treatment How to Access Health Informa tion Online using Patient Portal and [employer] Apps Indication:Non-smoker Start:14-Jul-2021 Instruction Type:Patient Education Patient Instructions Indication:Chest pain Start:09-Jun-2021 Instruction Type:Provider Instructions for Treatment How to Access Health Informa tion Online using Patient Portal and [employer] Apps Indication:Chest pain Start:09-Jun-2021 Instruction Type:Patient Education How to Access Health Informa tion Online using Patient Portal and [employer] Apps Indication:Non-smoker Start:08-Dec-2020 Instruction Type:Patient Education Patient [...] tion Online using Patient Portal and [employer] Apps Indication:Non-smoker Start:11-Jan-2023 Instruction Type:Patient Education Patient Instructions Indication:BMI 24.0-24.9, adult Start:09-Jul-2022 Instruction Type:Provider Instructions for Treatment How to Access Health Informa tion Online using Patient Portal and [employer] Apps Indication:BMI 24.0-24.9, adult Start:09-Jul-2022 Instruction Type:Patient Education Patient Instructions Indication:COVID Start:28-Apr-2022 Instruction Type:Provider Instructions for Treatment How to Access Health Informa tion Online using Patient Portal and [employer] Apps Indication:COVID Start:28-Apr-2022 Instruction Type:Patient Education Patient Instructions Indication:Hyperlipidemia Start:29-Dec-2021 Instruction Type:Provider Instructions for Treatment How to Access Health Informa tion Online using Patient Portal and [employer] Apps Indication:Hyperlipidemia Start:29-Dec-2021 Instruction Type:Patient Education Patient Instructions Indication:Non-smoker Start:14-Jul-2021 Instruction Type:Provider Instructions for Treatment How to Access Health Informa tion Online using Patient Portal and [employer] Apps Indication:Non-smoker Start:14-Jul-2021 Instruction Type:Patient Education Patient Instructions Indication:Chest pain Start:09-Jun-2021 Instruction Type:Provider Instructions for Treatment How to Access Health Informa tion Online using Patient Portal and 3rd Libertarian Apps Indication:Chest pain Start:09-Jun-2021 Instruction Type:Patient Education How to Access Health Informa tion Online using Patient Portal and 3rd Libert[employer] Apps Indication:Non-smoker Start:08-Dec-2020 Instruction Type:Patient Education Patient [...] Informa tion Online using Patient Portal and [employer] Apps Indication:Left shoulder pain Start:12-Jul-2023 Instruction Type:Patient Education Patient Instructions Indication:Non-smoker Start:11-Jan-2023 Instruction Type:Provider Instructions for Treatment How to Access Health Informa tion Online using Patient Portal and [employer] Apps Indication:Non-smoker Start:11-Jan-2023 Instruction Type:Patient Education Patient Instructions Indication:BMI 24.0-24.9, adult Start:09-Jul-2022 Instruction Type:Provider Instructions for Treatment How to Access Health Informa tion Online using Patient Portal and 3rd [employer] Apps Indication:BMI 24.0-24.9, adult Start:09-Jul-2022 Instruction Type:Patient Education Patient Instructions Indication:COVID Start:28-Apr-2022 Instruction Type:Provider Instructions for Treatment How to Access Health Informa tion Online using Patient Portal and 3rd [employer] Apps Indication:COVID Start:28-Apr-2022 Instruction Type:Patient Education Patient Instructions Indication:Hyperlipidemia Start:29-Dec-2021 Instruction Type:Provider Instructions for Treatment How to Access Health Informa tion Online using Patient Portal and 3rd Libert[employer] Apps Indication:Hyperlipidemia Start:29-Dec-2021 Instruction Type:Patient Education Patient Instructions Indication:Non-smoker Start:14-Jul-2021 Instruction Type:Provider Instructions for Treatment How to Access Health Informa tion Online using Patient Portal and 3rd Libert[employer] Apps Indication:Non-smoker Start:14-Jul-2021 Instruction Type:Patient Education Patient Instructions Indication:Chest pain Start:09-Jun-2021 Instruction Type:Provider Instructions for Treatment How to Access Health Informa tion Online using Patient Portal and 3rd Libert[employer] Apps Indication:Chest pain Start:09-Jun-2021 Instruction Type:Patient Education How to Access Health Informa tion Online using Patient Portal and 3rd Libert[employer] Apps Indication:Non-smoker Start:08-Dec-2020 Instruction Type:Patient Education Patient [...] Informa tion Online using Patient Portal and [employer] Libertarian Apps Indication:Left shoulder pain Start:12-Jul-2023 Instruction Type:Patient Education Patient Instructions Indication:Non-smoker Start:11-Jan-2023 Instruction Type:Provider Instructions for Treatment How to Access Health Informa tion Online using Patient Portal and [employer] Libertarian Apps Indication:Non-smoker Start:11-Jan-2023 Instruction Type:Patient Education Patient Instructions Indication:BMI 24.0-24.9, adult Start:09-Jul-2022 Instruction Type:Provider Instructions for Treatment How to Access Health Informa tion Online using Patient Portal and 3rd [employer] Apps Indication:BMI 24.0-24.9, adult Start:09-Jul-2022 Instruction Type:Patient Education Patient Instructions Indication:COVID Start:28-Apr-2022 Instruction Type:Provider Instructions for Treatment How to Access Health Informa tion Online using Patient Portal and 3rd Libert[employer] Apps Indication:COVID Start:28-Apr-2022 Instruction Type:Patient Education Patient Instructions Indication:Hyperlipidemia Start:29-Dec-2021 Instruction Type:Provider Instructions for Treatment How to Access Health Informa tion Online using Patient Portal and 3rd Libert[employer] Apps Indication:Hyperlipidemia Start:29-Dec-2021 Instruction Type:Patient Education Patient Instructions Indication:Non-smoker Start:14-Jul-2021 Instruction Type:Provider Instructions for Treatment How to Access Health Informa tion Online using Patient Portal and 3rd [employer] Apps Indication:Non-smoker Start:14-Jul-2021 Instruction Type:Patient Education Patient Instructions Indication:Chest pain Start:09-Jun-2021 Instruction Type:Provider Instructions for Treatment How to Access Health Informa tion Online using Patient Portal and 3rd [employer] Apps Indication:Chest pain Start:09-Jun-2021 Instruction Type:Patient Education How to Access Health Informa tion Online using Patient Portal and 3rd Libert[employer] Apps Indication:Non-smoker Start:08-Dec-2020 Instruction Type:Patient Education Patient [...] Jr., MD [address] [place] [address] [place] [address] Referral ID Status Reason Start Date Expiration Date V isits Requested Visits Authorized [id number] Closed Auto-Generate d Referral 09/15/2023 03/13/2024 1 [facility]No reason for referral information [facility] Work Phone: Reason for visit Narrative* Diagnostic Procedure Only (Routine) - Closed Specialty Diagnoses / Procedures Referred By Contac t Referred To Contact MR IMAGING Diagnoses Memory loss Cognitive decline Procedures MRI BRAIN WO IVCON MRI BRAIN BRAIN STEM W/O CONTRAST MATERIAL Ozzie Robertson Jr., MD [address] [place] [address] [place] [address] Referral ID Status Reason Start Date Expiration Date V isits Requested Visits Authorized [id number] Closed Auto-Generate d Referral 09/15/2023 03/13/2024 1 1 [facility] Family History No Family History Records [...] Name Dates Details Father Comments: brain cancer 000 Status:Active Mother Comments:smoker, HTN, hyperc holesterolemia, copd- dementia Status:Active Sister 1 Comments:overweight, HTN- de mentia Status:Active Unknown Family Member Name Dates Details Father Comments: brain cancer 000 Status:Active Mother Comments:smoker, HTN, hyperc holesterolemia, [...] Informa tion Online using Patient Portal and [employer] Apps Indication:Non-smoker Start:08-Dec-2020 Instruction Type:Patient Education Patient [...] Informa tion Online using Patient Portal and [employer] Libert[employer] Apps Indication:Non-smoker Start:08-Dec-2020 Instruction Type:Patient Education Patient [...] Will Yes November 04 4:07pm Power of Public Transportation Inspector Yes November 04, 2022 4:07pm Advance Directive Response Recorded Date/ Time Living Will Yes November 04 5:07pm Power of Public Transportation Inspector Yes November 04, 2022 5:07pm Chief Complaint [...] 43pm FATIGUED/SINUS COMPLAINT April 16, 2025 6:35am Chief Complaint Admit Date LEFT HAND CAT SCRATCH January 29, 2025 11 :38am RIGHT SHOULDER PAIN March 13, 2025 12: 43pm FATIGUED/SINUS COMPLAINT April 16, 2025 6:35am 3 MONTH FOLLOW UP LABS May 02, 2025 6: 04am employee labs May 02, 2025 6:06a m Chief Complaint Admit Date LEFT HAND CAT SCRATCH January 29, 2025 11 :38am RIGHT SHOULDER PAIN March 13, 2025 12: 43pm FATIGUED/SINUS COMPLAINT April 16, 2025 6:35am 3 MONTH FOLLOW UP LABS May 02, 2025 6: 04am employee labs May 02, 2025 6:06a m CONGESTION, WHEEZING May 19, 2025 11: 45am Reason for Visit Admit Date Cat scratch of left hand January 29, 2025 11:38am URI (upper respiratory infection) April 292024 11:45am Chief Complaint Admit Date LEFT HAND CAT SCRATCH January 29, 2025 11 :38am RIGHT SHOULDER PAIN March 13, 2025 12: 43pm FATIGUED/SINUS COMPLAINT April 16, 2025 6:35am 3 MONTH FOLLOW UP LABS May 02, 2025 6: 04am employee labs May 02, 2025 6:06a m CONGESTION, WHEEZING May 19, 2025 11: 45am CONGESTION, COUGH May 20, 2025 6:08 am EMPLOYEE COVID/ [facility] May 20, 2025 6:20 am Chief Complaint Admit Date RIGHT SHOULDER PAIN March 13, 2025 12: 43pm FATIGUED/SINUS COMPLAINT April 16, 2025 6:35am 3 MONTH FOLLOW UP LABS May 02, 2025 6: 04am employee labs May 02, 2025 6:06a m CONGESTION, WHEEZING May 19, 2025 11: 45am CONGESTION, COUGH May 20, 2025 6:08 am EMPLOYEE COVID/ [facility] May 20, 2025 6:20 am ABNORMAL LUNG SOUNDS May 28, 2025 12:0 1pm ABNORMAL LUNG SOUNDS May 28, 2025 12:0 4pm SCREENING/POST ELI June 04, 2025 12:50 pm Reason for Visit Admit Date URI (upper respiratory infection) April 292024 11:45am Reason for Referral Specialty Diagnoses / Procedures Referred By Contac t Referred To Contact MR IMAGING Diagnoses Memory loss Cognitive decline Procedures MRI BRAIN WO IVCON MRI BRAIN BRAIN STEM W/O CONTRAST MATERIAL Ozzie Robertson Jr., MD [address] [facility] [address] [place] [address] [place] [address] Referral ID Status Reason Start Date Expiration Date Visits Requested Visits Authorized [id number] Pending Review Auto-Generat ed Referral 2023 09/17/2024 1 1 Additional Source Comments INFORMATION SOURCE (unrecogn ized section and content) DATE CREATED AUTHOR 01/11/2023 [facility] DATE CREATED AUTHOR AUTHOR'S ORGANIZ ATION 06/13/2025 [facility] DATE CREATED AUTHOR AUTHOR'S ORGANIZ ATION 06/26/2025 [facility] Care Teams (unrecognized sec tion and content) Team Status: Active Member Role Status Dates Dr. Kerry Francois DO Family Provider Active Dr. Rajat Cummins DO Primary Care Provider Active Team Status: Inactive Member Role Status Dates Dr. Rajat Cummins , DO Primary Care Provide r, Attending Provider, Referring Provider Active Team Status: Inactive Member Role Status Dates Dr. Rajat Cummins , DO Primary Care Provider, Referring P rovider Active Dr. Dickson Oro , DO Attending Provider Active Team Status: Inactive Member Role Status Dates Dr. Rajat Cummins , DO Primary Care Provider, Referring P rovider Active Agustin BOWEN PA Attending Provider Active Team Status: Active Member Role Status Dates Dr. Rajat Cummins , DO Primary Care Provider Active Dr. Orestes Kumari MD Attending Provider Active Team Status: Inactive Member Role Status Dates Dr. 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 Rajat Cummins , DO Primary Care Provider Active Yamilex Arnold , Attending Provider, Referring Pr ovider Active Team Status: Inactive Member Role Status Dates Dr. 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 Relationship Specialty Start Date End Date Bailey Resendez MD (Fax) PCP - General Internal Medicine 07/14/11 Zone Maintenance Technician Relationship Specialty Start Date End Date Rajat Cummins DO [address] [facility] [address] [place] [address] (Fax) PCP - General Internal Medicine 10/04/23 Zone Maintenance Technician Relationship Specialty Start Date End Date Rajat Cummins DO [address] [facility] [address] [place] [address] (Work) (Fax) PCP - General Internal Medicine 10/04/23 Zone Maintenance Technician Relationship Specialty Start Date End Date Rajat Cummins DO [address] [facility] [address] [place] [address] (Work) (Fax) PCP - General Internal Medicine 10/04/23 Zone Maintenance Technician Relationship Specialty Start Date End Date Rajat Cummins DO [address] [facility] [address] [place] [address] PCP - General Internal Medicine 10/04/23 Zone Maintenance Technician Relationship Specialty Start Date End Date Rajat Cummins DO [address] [facility] [address] [place] [address] PCP - General Internal Medicine 10/04/23 Team Status: Inactive Member Role Status Dates Dr. Rajat Cummins , DO Primary Care Provider, Referring P rovider Active Juan Miller PA, PA Attending Provider Active Team Status: Active Member Role Status Dates Dr. Rajat Cummins , DO Primary Care Provider Active Dr. Joey Rose , DO Other Provider Active Dr. Dakota Alba MD Attending Provider, Referring P rovider Active Team Status: Inactive Member Role Status Dates Dr. Rajat Cummins , DO Primary Care Provider Active Juan BOWEN, PA Attending Provider, Referring Pr ovider Active Team Status: Active Member Role Status Dates Dr. Rajat Cummins , DO Primary Care Provider Active Health Risk Assessment Attending Provider, Referring P rovider Active Team Status: Inactive Member Role Status Dates Dr. Rajat Cummins , DO Primary Care Provider Active Dr. Joey Rose , DO Other Provider Active Dr. Dakota Alba MD Attending Provider, Referring P rovider Active Zone Maintenance Technician Relationship Specialty Start Date End Date Rajat Cummins DO [address] [facility] [address] [place] [address] PCP - General Internal Medicine 10/04/23 Zone Maintenance Technician Relationship Specialty Start Date End Date Rajat Cummins DO [address] [facility] [address] [place] [address] PCP - General Internal Medicine 10/04/23 Zone Maintenance Technician Relationship Specialty Start Date End Date Rajat Cummins DO [address] [facility] [address] [place] [address] PCP - General Internal Medicine 10/04/23 Zone Maintenance Technician Relationship Specialty Start Date End Date Rajat Cummins DO [address] [facility] [address] [place] [address] PCP - General Internal Medicine 10/04/23 Team Status: Active Member Role Status Dates Dr. Rajat Cummins DO Primary Care Provider Active Team Status: Inactive Member Role Status Dates Dr. Rajat Cummins DO Primary Care Provider Active Start: January 17, 2025 End: January 17, 2025 Dr. Rajat Cummins DO Attending Provider Active St art: January 17, 2025 End: January 17, 2025 Dr. Rajat Cummins DO Referring Provider Active St art: January 17, 2025 End: January 17, 2025 Team Status: Inactive Member Role Status Dates Dr. Rajat Cummins DO Primary Care Provider Active Start: January 29, 2025 End: January 29, 2025 Dr. Rajat Cummins DO Referring Provider Active St art: January 29, 2025 End: January 29, 2025 Juan Miller PA, PA Attending Provider Active Start: January 29, 2025 End: January 29, 2025 Team Status: Inactive Member Role Status Dates Dr. Rajat Cummins DO Primary Care Provider Active Start: March 13, 2025 End: March 13, 2025 Dr. Rajat Cummins DO Attending Provider Active St art: March 13, 2025 End: March 13, 2025 Dr. Rajat Cummins DO Referring Provider Active St art: March 13, 2025 End: March 13, 2025 Team Status: Inactive Member Role Status Dates Dr. Rajat Cummins DO Primary Care Provider Active Start: April 16, 2025 End: April 16, 2025 Dr. Rajat Cummins DO Referring Provider Active St art: April 16, 2025 End: April 16, 2025 Juan Miller PA, PA Attending Provider Active Start: April 16, 2025 End: April 16, 2025 Team Status: Inactive Member Role Status Dates Dr. Rajat Cummins DO Primary Care Provider Active Start: May 02, 2025 End: May 02, 2025 Dr. Rajat Cummins DO Attending Provider Active St art: May 02, 2025 End: May 02, 2025 Dr. Rajat Cummins DO Referring Provider Active St art: May 02, 2025 End: May 02, 2025 Team Status: Active Member Role Status Dates Dr. Rajat Cummins DO Primary Care Provider Active Start: May 02, 2025 Health Risk Assessment Attending Provider Active Start: May 02, 2025 Health Risk Assessment Referring Provider Active Start: May 02, 2025 Team Status: Inactive Member Role Status Dates Dr. Rajat Cummins DO Primary Care Provider Active Start: May 19, 2025 End: May 19, 2025 Dr. Rajat Cummins DO Referring Provider Active St art: May 19, 2025 End: May 19, 2025 Chidi Dale WIRELINE SUPERVISOR, WIRELINE SUPERVISOR-C Attending Provider Active S tart: May 19, 2025 End: May 19, 2025 Team Status: Inactive Member Role Status Dates Dr. Rajat Cummins DO Primary Care Provider Active Start: May 20, 2025 End: May 20, 2025 Dr. Rajat Cummins DO Referring Provider Active St art: May 20, 2025 End: May 20, 2025 Juan Miller PA, PA Attending Provider Active Start: May 20, 2025 End: May 20, 2025 Team Status: Active Member Role/Relationship Status Dates Dr. Rajat Cummins DO Primary Care Provider Active Team Status: Inactive Member Role/Relationship Status Dates Dr. Rajat Cummins DO Primary Care Provider Active Start: March 13, 2025 End: March 13, 2025 Dr. Rajat Cummins DO Attending Provider Active St art: March 13, 2025 End: March 13, 2025 Dr. Rajat Cummins DO Referring Provider Active St art: March 13, 2025 End: March 13, 2025 Team Status: Inactive Member Role/Relationship Status Dates Dr. Rajat Cummins DO Primary Care Provider Active Start: April 16, 2025 End: April 16, 2025 Dr. Rajat Cummins DO Referring Provider Active St art: April 16, 2025 End: April 16, 2025 Juan Miller PA, PA Attending Provider Active Start: April 16, 2025 End: April 16, 2025 Team Status: Inactive Member Role/Relationship Status Dates Dr. Rajat Cummins DO Primary Care Provider Active Start: May 02, 2025 End: May 02, 2025 Dr. Rajat Cummins DO Attending Provider Active St art: May 02, 2025 End: May 02, 2025 Dr. Rajat Cummins DO Referring Provider Active St art: May 02, 2025 End: May 02, 2025 Team Status: Active Member Role/Relationship Status Dates Dr. Rajat Cummins DO Primary Care Provider Active Start: May 02, 2025 Health Risk Assessment Attending Provider Active Start: May 02, 2025 Health Risk Assessment Referring Provider Active Start: May 02, 2025 Team Status: Inactive Member Role/Relationship Status Dates Dr. Rajat Cummins DO Primary Care Provider Active Start: May 19, 2025 End: May 19, 2025 Dr. Rajat Cummins DO Referring Provider Active St art: May 19, 2025 End: May 19, 2025 Chidi Dale WIRELINE SUPERVISOR, WIRELINE SUPERVISOR-C Attending Provider Active S tart: May 19, 2025 End: May 19, 2025 Team Status: Inactive Member Role/Relationship Status Dates Dr. Rajat Cummins DO Primary Care Provider Active Start: May 20, 2025 End: May 20, 2025 Dr. Rajat Cummins DO Referring Provider Active St art: May 20, 2025 End: May 20, 2025 Juan BOWEN PA Attending Provider Active Start: May 20, 2025 End: May 20, 2025 Team Status: Inactive Member Role/Relationship Status Dates Dr. Rajat Cummins DO Primary Care Provider Active Start: May 20, 2025 End: May 20, 2025 Dr. Rajat Cummins DO Referring Provider Active St art: May 20, 2025 End: May 20, 2025 Juan BOWEN PA Attending Provider Active Start: May 20, 2025 End: May 20, 2025 Team Status: Active Member Role/Relationship Status Dates Dr. Rajat Cummins DO Primary Care Provider Active Start: May 28, 2025 Dr. Rajat Cummins DO Referring Provider Active St art: May 28, 2025 Dr. Phillip Borrego MD Attending Provider Active S tart: May 28, 2025 Team Status: Inactive Member Role/Relationship Status Dates Dr. Rajat Cummins DO Primary Care Provider Active Start: May 28, 2025 End: May 28, 2025 Dr. Rajat Fast , DO Attending Provider Active St art: May 28, 2025 End: May 28, 2025 Dr. Rajat Cummins , DO Referring Provider Active St art: May 28, 2025 End: May 28, 2025 Team Status: Active Member Role/Relationship Status Dates Dr. Rajat Cummins , DO Primary Care Provider Active Start: June 04, 2025 Dr. Rajat Cummins , DO Attending Provider Active St art: June 04, 2025 Dr. Rajat Cummins , DO Referring Provider Active St art: June 04, 2025 Team Status: Inactive Member Role/Relationship Status Dates Dr. Rjaat Cummins DO Primary Care Provider Active Start: June 04, 2025 End: June 04, 2025 Dr. Rajat Cummins , DO Attending Provider Active St art: June 04, 2025 End: June 04, 2025 Dr. Rajat Cummins , DO Referring Provider Active St art: June 04, 2025 End: June 04, 2025 Goals (unrecognized section and content) Goals [...] or prosecute any alcohol or drug abuse patient.[facility] the event this information is protected by the Federal Confidentiality of Alcohol and Drug Abuse Patient Records regulations: The Federal rules restrict any use of the information to criminally investigate or prosecute any alcohol or drug abuse patient.[facility] the event this information is protected by the Federal Confidentiality of Alcohol and Drug Abuse Patient Records regulations: The Federal rules restrict any use of the information to criminally investigate or prosecute any alcohol or drug abuse patient.[facility] the event this information is protected by the Federal Confidentiality of Alcohol and Drug Abuse Patient Records regulations: The Federal rules restrict any use of the information to criminally investigate or prosecute any alcohol or drug abuse patient.[facility] the event this information is protected by the Federal Confidentiality of Alcohol and Drug Abuse Patient Records regulations: The Federal rules restrict any use of the information to criminally investigate or prosecute any alcohol or drug abuse patient.[facility] Hospital[facility] the event this information is protected by the Federal Confidentiality of Alcohol and Drug Abuse Patient Records regulations: The Federal rules restrict any use of the information to criminally investigate or prosecute any alcohol or drug abuse patient.[facility] Hospital[facility] the event this information is protected by the Federal Confidentiality of Alcohol and Drug Abuse Patient Records regulations: The Federal rules restrict any use of the information to criminally investigate or prosecute any alcohol or drug abuse patient.[facility] the event this information is protected by the Federal Confidentiality of Alcohol and Drug Abuse Patient Records regulations: The Federal rules restrict any use of the information to criminally investigate or prosecute any alcohol or drug abuse patient.[facility] HospitalIn the event this information is protected by the Federal Confidentiality of Alcohol and Drug Abuse Patient Records regulations: The Federal rules restrict any use of the information to criminally investigate or prosecute any alcohol or drug abuse patient.[facility] HospitalIn the event this information is protected by the Federal Confidentiality of Alcohol and Drug Abuse Patient Records regulations: The Federal rules restrict any use of the information to criminally investigate or prosecute any alcohol or drug abuse patient.[facility] HospitalIn the event this information is protected by the Federal Confidentiality of Alcohol and Drug Abuse Patient Records regulations: The Federal rules restrict any use of the information to criminally investigate or prosecute any alcohol or drug abuse patient.[facility] HospitalIn the event this information is protected by the Federal Confidentiality of Alcohol and Drug Abuse Patient Records regulations: The Federal rules restrict any use of the information to criminally investigate or prosecute any alcohol or drug abuse patient.[facility] HospitalIn the event this information is protected by the Federal Confidentiality of Alcohol and Drug Abuse Patient Records regulations: The Federal rules restrict any use of the information to criminally investigate or prosecute any alcohol or drug abuse patient.[facility] HospitalIn the event this information is protected by the Federal Confidentiality of Alcohol and Drug Abuse Patient Records regulations: The Federal rules restrict any use of the information to criminally investigate or prosecute any alcohol or drug abuse patient.[facility] HospitalIn the event this information is protected by the Federal Confidentiality of Alcohol and Drug Abuse Patient Records regulations: The Federal rules restrict any use of the information to criminally investigate or prosecute any alcohol or drug abuse patient.[facility] HospitalIn the event this information is protected by the Federal Confidentiality of Alcohol and Drug Abuse Patient Records regulations: The Federal rules restrict any use of the information to criminally investigate or prosecute any alcohol or drug abuse patient.[facility] HospitalIn the event this information is protected by the Federal Confidentiality of Alcohol and Drug Abuse Patient Records regulations: The Federal rules restrict any use of the information to criminally investigate or prosecute any alcohol or drug abuse patient.[facility] HospitalIn the event this information is protected by the Federal Confidentiality of Alcohol and Drug Abuse Patient Records regulations: The Federal rules restrict any use of the information to criminally investigate or prosecute any alcohol or drug abuse patient.[facility] the event this information is protected by the Federal Confidentiality of Alcohol and Drug Abuse Patient Records regulations: The Federal rules restrict any use of the information to criminally investigate or prosecute any alcohol or drug abuse patient.[facility] Reason for Visit (unrecogniz ed section [...] Established Patient C/o HBP d/t medicati on Reason Comments Follow Up Reason Comments Chart update Dr Robertson request his MARILEE note be forwarded to PCP. FOR RECORDS PERTAINING TO PATIENTS WHO ARE [...] BE BASED ON THE PRIMARY CLINICAL RECORDS. [facility] [employer] [facility] provides no warranty or guarantee of the accuracy or completeness of information in this document.
[2025-07-05 07:32] LABS: Hematocrit 40.0 % (37-47); Hemoglobin 13.3 g/dL (12.0-15.0); Immature Granulocytes Count 0.030 X10^3/uL (0.0-0.0); Mean Corp Hgb Conc 33.3 g/dL (32-36); Mean Corpuscular Volume 93.2 fL (81-99); Mean Platelet Vol. 9.3 fl (6.2-12.0); NRBC Flagged by Analyzer 0 % (0-5); Platelet Count 235 K/mm3 (150-450); RBC Distribution Width CV 12.6 % (11.6-14.6); RBC Distribution Width SD 43.5 fl (35.1-43.9); Red Blood Count 4.29 M/mm3 (4.2-5.4); White Blood Count 6.0 K/mm3 (4.4-11.0)
[2025-07-05 08:12] LABS: AST(SGOT) 23 U/L (<=31); Alanine Aminotransfer ALT/SGPT 17 U/L (<=34); Albumin, Serum 4.3 g/dL (3.4-4.8); Alkaline Phosphatase 61 U/L (35-104); Anion Gap 12 (5-15); BUN 14 mg/dL (4-19); BUN/Creat Ratio 20.8 RATIO (10-20); Calcium,Total 10.2 mg/dL (7.6-11.0); Carbon Dioxide 22.8 mmol/L (21.0-32.0); Chloride 104 mmol/L (98-108); Cholesterol 207 mg/dL (<=200); Globulin 2.7 g/dL (2.2-4.2); Glucose 94 mg/dL (70-99); Low Density Lipoprotein Calc. 106 mg/dL; PTHIN 47 pg/mL (11-61); Potassium 4.1 mmol/L (3.3-5.1); Triglycerides 57 mg/dL; Very Low Density Lipoprotein 11 mg/dL (5-40); cholesterol:hdl ratio screen 2.30
[2025-07-05 08:23] LABS: Prothrombin Time (Protime)PT. 13.3 SECONDS (11.7-14.9)
[2025-07-05 08:24] LABS: Partial Thromboplast Time 22.7 Seconds (24.1-36.2)
[2025-07-05 08:30] LABS: FOLATES,SERUM (FOLIC ACID) 11.10 ng/mL (4.60-34.80)
[2025-07-05 08:47] LABS: Vitamin B12 1337 pg/mL (180-914); Vitamin D,25 Hydroxy 53.9 ng/mL (30-100)
== END | disposition home or self-care (01) ==
LOC: LAB 06:32
PROVIDERS: PCP Internal Medicine; Visit Provider Internal Medicine
DX: R23.3 Spontaneous ecchymoses (principal); R53.83 Other fatigue; E55.9 Vitamin D deficiency, unspecified; E78.5 Hyperlipidemia, unspecified
CPT/HCPCS: 36415; 80053; 80061; 82306; 82607; 82746; 83970; 84100; 84443; 85025; 85610; 85730

== ENCOUNTER → 2025-07-12 | Outpatient (CLI) | payer OTHER, MEDICARE, SELFPAY ==
--- OUTSIDE RECORDS SUMMARY | 2025-07-12 07:50 | XMS RPT_ITS | CCD ---
Author Organization [facility] Care Team Providers Care Sales Project Coordinator Name Role Phone Dee Alvarez Unavailable Royce Woods Unavailable Patricia Blackman Unavailable [phone] Gravius, Tatiana Unavailable Unavailable Slarb, Karime Unavailable Unavailable Unavailable Unavailable Nan Robison Unavailable Patricia Blackman Unavailable [phone] Disha Carnes Unavailable Unavailable Antonio DO, Dee Unavailable Juan Daniel Lee Unavailable Dr. Royce Woods Unavailable Patricia Blackman Unavailable [phone] Disha Carnes LPN Unavailable Unavailable Manmaurisio REED, Tonie Unavailable Unavailable Unavailable Unavailable Fast DO, Rajat A Unavailable Antonio DO, Dee Unavailable Unavailable Unavailable KANDACE Sandhu LPN Unavailable Unavailable FasciEli sanford M Unavailable Fast DO, Rajat A Unavailable Gina REED, Kayela Unavailable Unavailable Friend, Dr. Forman Unavailable Fast DO, Rajat A Attending Unavailable Fast , Rajat A Consulting Unavailable Dr. Rajat Norton Primary Care Provider [phone] Dr. Rajat Norton Referring Provider [phone] Friend, Dr. Forman Attending Provider ANDRÉS Bustamante Attending Provider Bailey Resendez MD Primary Care Provider [phone] Fast, Dr. Adams Primary Care Provider [phone] Fast, Dr. Adams Referring Provider [phone] Joey Rose Unavailable Fast DO, Rajat Lopez Primary Care Provider [phone] Fast, Dr. Adams Primary Care Provider [phone] Fast, Dr. Adams Referring Provider [phone] ANDRÉS Abreu Attending Provider Fast, Dr. Adams Primary Care Provider [phone] Fast, Dr. Adams Referring Provider [phone] ANDRÉS Abreu Attending Provider Fast DO, Rajat Lopez Primary Care Provider [phone] Fast DO, Dr. Adams Primary Care Provider [phone] Fast DO, Dr. Adams Attending Provider [phone] Fast DO, Dr. Adams Referring Provider [phone] Juan Abreu Attending Provider [phone] Assessment, Health Risk Attending Provider Unava ilable Assessment, Health Risk Referring Provider Unava ilable Fast DO, Dr. Adams Primary Care Provider [phone] Fast DO, Dr. Adams Referring Provider [phone] Fast DO, Dr. Adams Attending Provider [phone] Roof Chidi WANG Attending Provider Fast DO, Dr. Adams Primary Care Provider [phone] Fast DO, Dr. Adams Referring Provider [phone] Juan Abreu Attending Provider [phone] Elmo SEVERINO, Dr. Fisher Attending Provider [phone] FAST, RAJAT Lopez Primary Care Unavailable OZZIE ROBERTSON JR Attending Unavailable FAST, RAJAT Lopez Primary Care Unavailable DANNI GURROLA Attending Unavailable ROBERTSON JR, ZOZIE J Referring Unavailable FAST, RAJAT A Primary Care Unavailable JONATHAN CACERES, OZZIE Parikh Referring Unavailable OZZIE ROBERTSON JR Attending Unavailable Fast, Rajat Attending Unavailable Fast, Rajat Primary Care Unavailable Fast, Rajat Attending Unavailable Fast, Rajat Primary Care Unavailable Fast, Rajat Referring Unavailable Fast, Rajat Consulting Unavailable Fast, Rajat Primary Care Unavailable Elmo, [place] Attending Unavailable Fast, Rajat Referring Unavailable Fast, Rajat Referring Unavailable Fast, Rajat Primary Care Unavailable Fast, Rajat Attending Unavailable Fast, Rajat Referring Unavailable Fast, Rajat Primary Care Unavailable Fast, Rajat Attending Unavailable Fast, Rajat Primary Care Unavailable Fast, Rajat Referring Unavailable Fast, Rajat Attending Unavailable Fast, Rajat Primary Care Unavailable Fast, Rajat Referring Unavailable Fast, Rajat Attending Unavailable Fast, Rajat Primary Care Unavailable Assessment, Health Risk Referring Unavaila ble Assessment, Health Risk Attending Unavaila ble Fast, Rajat Primary Care Unavailable Elmo, [place] Attending Unavailable Fast, Rajat Referring Unavailable Fast, [...] Rajat Referring Unavailable Juan Abreu Attending Unavailable Roof Chidi TRIVEDI Attending Unavailable Fast, Rajat Primary Care Unavailable Fast, Rajat Referring Unavailable Fast, Rajat Primary Care Unavailable Fast, Rajat Referring Unavailable Juan Abreu Attending Unavailable Fast, Rajat Primary Care Unavailable Fast, Rajat Referring Unavailable Juan Abreu Attending Unavailable Fast, Rajat Primary Care Unavailable Fast, Rajat Referring Unavailable Juan Abreu Attending Unavailable Fast, Rajat Primary Care Unavailable Fast, Rajat Referring Unavailable Elmo, Phillip Attending Unavailable Medications Current Medications Medication Drug [...] as needed for cough December 20, 2023 1:00June 06, 2024 1:14pm Start: 03-11-2023 End: 12-27-2023 take 2 capsules by mouth three times daily as needed for cough Benzonatate 100 mg capsule Discontinued 200 mg PO THREE TIMES A DAY as needed for cough 30 March 11, 2023 12:00am December 27, 2023 11:00am Start: 03-11-2023 End: 12-27-2023 take 200 mg by mouth three times daily Benzonatate Discontinued 200 MG PO THREE TIMES A DAY March 11, 2023 12:00am December 27, 2023 11:00am calcium ascorbate 500 mg oral tablet (16 sources) Start: 03-11-2023 take 1 tablet by [...] Comment on above: Take 1 tablet by [facility] once daily. cholecalciferol 0.05 mg oral capsule [...] Comment on above: Take 400 Units by [facility] once daily. memantine hydrochloride 5 mg oral tablet (20 sources) E-qasphl-A-aspartate Receptor Antagonist Start: 4 End: 5 take [...] 16, 2023 12:00am March 17, 2023 12:05am Volborg 9-Fpu-Frs-Fish Oil (Fi sh Oil) 60-90-500 mg capsule (16 sources) Start: 03-11-2023 Volborg 3-Dha-Ep a-Fish Oil (Fish Oil) 60-90-500 mg capsule Active 1 NMA PO DAILY March 11, 2023 12:00am Start: 03-11-2023 take 1 capsule by mo ut once daily Volborg 3-Wsf-Xzz-Fish Oil (Fish Oil) 60-90-500 mg capsule Active 1 CAP PO DAILY March 10, 2023 11:00pm Start: 03-11-2023 take 1 capsule by mo uth once daily Volborg 0-Zgh-Vtw-Fish Oil (Fish Oil) 60-90-500 mg capsule Active [...] / oxyCODONE hydrochloride 5 mg oral tablet (17 sources) Opioid Agonist Start: 09-09-2020 End: 09-16-2020 [...] 20-Aug-2020 Inactive cephalexin 500 mg oral capsule (17 sources) Cephalosporin Antibacterial Start: End: take 1 capsule by mouth every twelve hours Cephalexin 500 mg capsule Discontinued 500 mg PO Q12H 20 10 April 22, 2020 12:00am May 01, 2020 [...] 10-Apr-2008 Inactive dexamethasone 6 mg oral tablet (12 sources) Corticosteroid Start: 024 End: take 1 tablet by mouth once daily Dexamethasone 6 mg tablet Discontinued 6 mg PO DAILY 5 0 December 20, 2023 1:00am December 27, 2023 [...] spray (20 sources) Corticosteroid Start: 008 End: 008 NASONEX, 50MCG/ACT (Nasal Suspension) 2 (two) Suspension Daily for 0 days Refills: 0 Ordered: 10-Apr-2008 Shannen Bhardwaj RN Start : 10-Apr-2008 End : 29-Apr-2008 Inactive naproxen 250 mg oral tablet (17 sources) Nonsteroidal Anti-inflammatory Drug Start: 020 End: take 250-500 mg by mouth every eight hours as needed for pain Naproxen 250 MG tablet Discontinued 250 - 500 mg PO EVERY 8 HOURS NEEDED as needed for MILD PAIN 30 September 09, 2020 12:00am September 23, 2020 3:31pm nitrofurantoin, macrocrystals 25 mg / nitrofurantoin, monohydrate 75 mg oral capsule (17 sources) Nitrofuran Antibacterial Start: 018 End: take [...] mg / trimethoprim 160 mg oral tablet (17 sources) Dihydrofolate Reductase Inhibitor Antibacterial, Sulfonamide Antimicrobial Start: End: Sulfamethoxazole-Tr imethoprim 800-160 mg tablet Discontinued 1 {tbl} PO TWICE A DAY 10 5 0 October 13, 2018 1:00am October 17, 2018 1:00am October 18, 2018 1:09am Start: 10-13-2018 End: 10-18-2018 take 1 tablet by mouth twice daily Sulfamethoxazole-Trimethoprim Discontinu ed 1 TABLET PO TWICE A DAY 10 5 October 13, 2018 1:00am October 18, 2018 1:09am terbinafine 250 mg oral tablet (20 sources) Allylamine Antifungal Start: 04-17-2024 End: 11-02-2024 [...] Problem Date Documented Date Episodic/Chronic Acute bronchitis (18 sources) Acute bronchitis; Translations: [Acute bronchitis, unspecified] [...] Bronchitis; Translations: [Bronchitis] Resolved: 4 03-25-2014 Episodic Coagulation and hemorrhagic disorders (1 source) Spontaneous ecchymoses; Translations: [Spontaneous ecchymoses] Onset: 5 Episodic Delirium, dementia, and amnestic and other cognitive disorders (19 sources) Dementia; Translations: [Unspecified dementia without behavioral disturbance] Onset: 3 10-11-2023 Chronic Disorders of lipid metabolism (20 sources) Hyperlipidemia; Translations: [Hyperlipidemia] Onset: 4 07-14-2021 Chronic Comment on above: improved continue [...] colonic polyps] 12-28-2022 Episodic Other congenital anomalies (9 sources) Herniated urinary bladder 09-09-2020 Chronic Comment [...] eye, left] Resolved: 1 04-15-2021 Episodic Other injuries and conditions due to external causes (1 source) Unspecified injury of muscle, fascia and tendon of the posterior muscle group at thigh level, right thigh, initial encounter; Translations: [Unspecified injury of muscle, fascia and tendon of the posterior muscle group at thigh level, right thigh, initial encounter] Onset: 5 Episodic Other nervous system disorders (20 sources) [...] Translations: [Left shoulder pain] 07-13-2023 Episodic Other screening for suspected conditions (not mental disorders or infectious disease) (20 sources) Mammography abnormal; Translations: [Breast neoplasm screening status] Onset: 8 Resolved: 0 08-25-2010 Episodic Comment on above: will get labs thru [facility] program Other skin disorders (20 sources) Sebaceous cyst; [...] disorders; Translations: [Family history of dementia] Onset: Episodic Residual codes; unclassified (1 source) Other amnesia; Translations: [Memory loss] Onset: 5 Episodic Skin and subcutaneous tissue infections (17 sources) Staphylococcal infection of skin; Translations: [Local [...] Onset: 5 Episodic Other non-traumatic joint disorders (1 source) Pain in right shoulder; Translations: [Pain in right shoulder] Onset: 5 Episodic Other non-traumatic joint disorders (11 sources) Pain in left knee; Translations: [Knee pain, left] 04-04-2020 Other skin disorders (20 sources) Sebaceous cyst of skin; Translations: [Sebaceous cyst] Resolved: 9 12-08-2020 Episodic Superficial injury; contusion (16 sources) Cat scratch injury; Translations: [Abrasion of [...] of metacarpophalangeal joint of right thumb Unclassified (17 sources) bilateral sacrospinous ligament fixation 06-17-2022 Viral infection (7 sources) Disease caused by 2019-nCoV Results Test Name Value Interpretation Reference Range Facility Absolute lymphocyte countOrd ered By: on 07-05-2025 Lymphocytes Auto (Unsp spec) [#/Vol] 1.29 10*3/uL 0.83-4.51 [facility] Absolute neutrophil countOrd ered By: Rajat on 07-05-2025 Neutrophils (Bld) [#/Vol] 4.2 10*3/uL 2.0-7.7 [facility] Activated partial thrombopla stin time (aPTT) in platelet poor plasma by coagulation aOrdered By: on 07-05-2025 aPTT Coag (PPP) [Time] 22.7 s Low 24.1-36.[address] [facility] Anion gap in Serum or Plasma Ordered By: Rajat on 07-05-2025 Anion gap [Moles/Vol] 12 mmol/L 5-15 [facility] Automated lymphocyte count a s percentage of total leukocytesOrdered By: Rajat on 07-05-2025 Lymphocytes/100 WBC Auto (Unsp spec) 21.4 % 19-41 [facility] BUN/creatinine ratioOrdered By: Rajat on 07-05-2025 Urea nitrogen/Creatinine [Mass ratio] 20.8 mg/mg High 10-20 [facility] Basophil percentageOrdered B y: Rajat Fast on 07-05-2025 Basophils/100 WBC (Bld) 0.7 % 0-1 [facility] Bilirubin, totalOrdered By: Rajat on 07-05-2025 Bilirubin [Mass/Vol] 0.50 mg/dL 0.00-1.30 [facility] CBC W/Diff, Automatedon 08 Absolute Lymph 1.29 X10 3/uL Normal 0.83-4.51 [facility] Comment on above: Performed By: #### L 501.9520, L503.0106, L509.1000, L300.4310, L501.2300, L300.3900, L506.0200, L100.0100, L500.4100, L500.4050, L506.1001 #### [facility] [address] [place], [place], [id number] (533) Absolute Neut 4.2 X10 3/uL Normal 2.0-7.7 [facility] Comment on above: Performed By: #### L 501.9520, L503.0106, L509.1000, L300.4310, L501.2300, L300.3900, L506.0200, L100.0100, L500.4100, L500.4050, L506.1001 #### [facility] [address] [place], [place], [phone] (021) Basophils/100 WBC (Bld) 0.7 % Normal 0-1 [facility] Comment on above: Performed By: #### L 501.9520, L503.0106, L509.1000, L300.4310, L501.2300, L300.3900, L506.0200, L100.0100, L500.4100, L500.4050, L506.1001 #### [facility] [address] [place], [place], [phone] (429) Eosinophils/100 WBC (Bld) 2.3 % Normal 0-5 [facility] Comment on above: Performed By: #### L 501.9520, L503.0106, L509.1000, L300.4310, L501.2300, L300.3900, L506.0200, L100.0100, L500.4100, L500.4050, L506.1001 #### [facility] [address] [place], [address] Erythrocyte distribution width (RBC) [Ratio] 12.6 % Normal 11.6-14.6 [facility] Comment on above: Performed By: #### L 501.9520, L503.0106, L509.1000, L300.4310, L501.2300, L300.3900, L506.0200, L100.0100, L500.4100, L500.4050, L506.1001 #### [facility] [address] [place], [address] Hematocrit (Bld) [Volume fraction] 40.0 % Normal 37-47 [facility] Comment on above: Performed By: #### L 501.9520, L503.0106, L509.1000, L300.4310, L501.2300, L300.3900, L506.0200, L100.0100, L500.4100, L500.4050, L506.1001 #### [facility] [address] [place], [address] Hemoglobin (Bld) [Mass/Vol] 13.3 g/dL Normal 12.0-15.0 [facility] Comment on above: Performed By: #### L 501.9520, L503.0106, L509.1000, L300.4310, L501.2300, L300.3900, L506.0200, L100.0100, L500.4100, L500.4050, L506.1001 #### [facility] [address] [place], [address] (591) IG% 0.500 Normal 0.0-0.9 [facility] Comment on above: Result Comment: IG% - Immature Granulocytes (promyelocytes, myelocytes and metamyelocytes) > 1% indicates that a LEFT SHIFT is Present. Performed By: #### L 501.9520, L503.0106, L509.1000, L300.4310, L501.2300, L300.3900, L506.0200, L100.0100, L500.4100, L500.4050, L506.1001 #### [facility] [address] [place], [address] Lymphocytes/100 WBC (Bld) 21.4 % Normal 19-41 [facility] Comment on above: Performed By: #### L 501.9520, L503.0106, L509.1000, L300.4310, L501.2300, L300.3900, L506.0200, L100.0100, L500.4100, L500.4050, L506.1001 #### [facility] [address] [place], [address] MCH (RBC) [Entitic mass] 31.0 pg Normal 27.0-32.0 [facility] Comment on above: Performed By: #### L 501.9520, L503.0106, L509.1000, L300.4310, L501.2300, L300.3900, L506.0200, L100.0100, L500.4100, L500.4050, L506.1001 #### [facility] [address] [place], [address] MCHC (RBC) [Mass/Vol] 33.3 g/dL Normal 32-36 [facility] Comment on above: Performed By: #### L 501.9520, L503.0106, L509.1000, L300.4310, L501.2300, L300.3900, L506.0200, L100.0100, L500.4100, L500.4050, L506.1001 #### [facility] [address] [place], [address] MCV (RBC) [Entitic vol] 93.2 fL Normal 81-99 [facility] Comment on above: Performed By: #### L 501.9520, L503.0106, L509.1000, L300.4310, L501.2300, L300.3900, L506.0200, L100.0100, L500.4100, L500.4050, L506.1001 #### [facility] [address] [place], [place], [phone] (920) Monocytes/100 WBC (Bld) 5.0 % Normal 0-10 [facility] Comment on above: Performed By: #### L 501.9520, L503.0106, L509.1000, L300.4310, L501.2300, L300.3900, L506.0200, L100.0100, L500.4100, L500.4050, L506.1001 #### [facility] [address] [place], [place], [phone] (536) Neutrophils/100 WBC (Bld) 70.1 % High 47-70 [facility] Comment on above: Performed By: #### L 501.9520, L503.0106, L509.1000, L300.4310, L501.2300, L300.3900, L506.0200, L100.0100, L500.4100, L500.4050, L506.1001 #### [facility] [address] [place], [address] (953) Nucleated RBC (Bld) [#/Vol] 0 10*3/uL Normal 0-5 [facility] Comment on above: Performed By: #### L 501.9520, L503.0106, L509.1000, L300.4310, L501.2300, L300.3900, L506.0200, L100.0100, L500.4100, L500.4050, L506.1001 #### [facility] [address] [place], [address] (614) Platelet mean volume (Bld) [Entitic vol] 9.3 fL Normal 6.2-12.0 [facility] Comment on above: Performed By: #### L 501.9520, L503.0106, L509.1000, L300.4310, L501.2300, L300.3900, L506.0200, L100.0100, L500.4100, L500.4050, L506.1001 #### [facility] [address] [place], [address] Platelets (Bld) [#/Vol] 235 10*3/uL Normal 150-450 [facility] Comment on above: Performed By: #### L 501.9520, L503.0106, L509.1000, L300.4310, L501.2300, L300.3900, L506.0200, L100.0100, L500.4100, L500.4050, L506.1001 #### [facility] [address] [place], [address] RBC (Bld) [#/Vol] 4.29 10*6/uL Normal 4.2-5.4 [facility] Comment on above: Performed By: #### L 501.9520, L503.0106, L509.1000, L300.4310, L501.2300, L300.3900, L506.0200, L100.0100, L500.4100, L500.4050, L506.1001 #### [facility] [address] [place], [address] RDW SD 43.5 fl Normal 35.1-43.9 [facility] Comment on above: Performed By: #### L 501.9520, L503.0106, L509.1000, L300.4310, L501.2300, L300.3900, L506.0200, L100.0100, L500.4100, L500.4050, L506.1001 #### [facility] [address] [place], [place], [phone] WBC (Bld) [#/Vol] 6.0 10*3/uL Normal 4.4-11.0 [facility] Comment on above: Performed By: #### L 501.9520, L503.0106, L509.1000, L300.4310, L501.2300, L300.3900, L506.0200, L100.0100, L500.4100, L500.4050, L506.1001 #### [facility] [address] [place], [address] Calculated very low density lipoprotein (VLDL) cholesterol measurementOrdered By: Rajat Fast on 07-05-2025 Calculated very low density lipoprotein (VLDL) cholesterol measurement 11 mg/dL 5-40 [facility] Carbon dioxide, total [Moles /volume] in Central venous bloodOrdered By: Rajat Fast on 07-05-2025 CO2 [Moles/Vol] 22.8 mmol/L 21.0-32.0 [facility] Chloride assayOrdered By: De bra Fast on 07-05-2025 Chloride [Moles/Vol] 104 mmol/L 98-108 [facility] Comprehensive Metabolic Prof ilon 07-05-2025 Albumin [Mass/Vol] 4.3 g/dL Normal 3.4-4.8 [facility] Comment on above: Performed By: #### L 501.9520, L503.0106, L509.1000, L300.4310, L501.2300, L300.3900, L506.0200, L100.0100, L500.4100, L500.4050, L506.1001 #### [facility] [address] [place], [place], [id number] Albumin/Globulin [Mass ratio] 1.6 {ratio} Normal 0.9-2.4 [facility] Comment on above: Performed By: #### L 501.9520, L503.0106, L509.1000, L300.4310, L501.2300, L300.3900, L506.0200, L100.0100, L500.4100, L500.4050, L506.1001 #### [facility] [address] [place], [address] (725) ALK PHOS 61 U/L Normal 35-104 [facility] Comment on above: Performed By: #### L 501.9520, L503.0106, L509.1000, L300.4310, L501.2300, L300.3900, L506.0200, L100.0100, L500.4100, L500.4050, L506.1001 #### [facility] [address] [place], [address] ALT [Catalytic activity/Vol] 17 U/L Normal <=34 [facility] Comment on above: Performed By: #### L 501.9520, L503.0106, L509.1000, L300.4310, L501.2300, L300.3900, L506.0200, L100.0100, L500.4100, L500.4050, L506.1001 #### [facility] [address] [facility] [place], [address] (386) AST [Catalytic activity/Vol] 23 U/L Normal <=31 [facility] Comment on above: Performed By: #### L 501.9520, L503.0106, L509.1000, L300.4310, L501.2300, L300.3900, L506.0200, L100.0100, L500.4100, L500.4050, L506.1001 #### [facility] [address] [place], [address] Bilirubin [Mass/Vol] 0.50 mg/dL Normal 0.00-1.30 [facility] Comment on above: Performed By: #### L 501.9520, L503.0106, L509.1000, L300.4310, L501.2300, L300.3900, L506.0200, L100.0100, L500.4100, L500.4050, L506.1001 #### [facility] [address] [place], [address] BUN/CRE 20.8 RATIO High 10-20 [facility] Comment on above: Performed By: #### L 501.9520, L503.0106, L509.1000, L300.4310, L501.2300, L300.3900, L506.0200, L100.0100, L500.4100, L500.4050, L506.1001 #### [facility] [address] [place], [address] Calcium [Mass/Vol] 10.2 mg/dL Normal 7.6-11.0 [facility] Comment on above: Performed By: #### L 501.9520, L503.0106, L509.1000, L300.4310, L501.2300, L300.3900, L506.0200, L100.0100, L500.4100, L500.4050, L506.1001 #### [facility] [address] [place], [address] Chloride [Moles/Vol] 104 mmol/L Normal 98-108 [facility] Comment on above: Performed By: #### L 501.9520, L503.0106, L509.1000, L300.4310, L501.2300, L300.3900, L506.0200, L100.0100, L500.4100, L500.4050, L506.1001 #### [facility] [address] [place], [address] CO2 [Moles/Vol] 22.8 mmol/L Normal 21.0-32.0 [facility] Comment on above: Performed By: #### L 501.9520, L503.0106, L509.1000, L300.4310, L501.2300, L300.3900, L506.0200, L100.0100, L500.4100, L500.4050, L506.1001 #### [facility] [address] [place], [place], [phone] (339) Creatinine [Mass/Vol] 0.66 mg/dL Low 0.70-1.20 [facility] Comment on above: Performed By: #### L 501.9520, L503.0106, L509.1000, L300.4310, L501.2300, L300.3900, L506.0200, L100.0100, L500.4100, L500.4050, L506.1001 #### [facility] [address] [place], [place], [phone] (321) GAP 12 Normal 5-15 [facility] Comment on above: Performed By: #### L 501.9520, L503.0106, L509.1000, L300.4310, L501.2300, L300.3900, L506.0200, L100.0100, L500.4100, L500.4050, L506.1001 #### [facility] [address] [place], [place], [phone] (144) GFR/1.73 sq M.predicted among non-blacks MDRD (S/P/Bld) [Vol rate/Area] 94 mL/min/{1.73_m2} Normal >60 [facility] Comment on above: Result Comment: mL/m in/1.73m2 CKD-EPI Creatinine Equation (2020) Performed By: #### L 501.9520, L503.0106, L509.1000, L300.4310, L501.2300, L300.3900, L506.0200, L100.0100, L500.4100, L500.4050, L506.1001 #### [facility] [address] [place], [address] (319) Globulin (S) [Mass/Vol] 2.7 g/dL Normal 2.2-4.2 [facility] Comment on above: Performed By: #### L 501.9520, L503.0106, L509.1000, L300.4310, L501.2300, L300.3900, L506.0200, L100.0100, L500.4100, L500.4050, L506.1001 #### [facility] [address] [place], [address] Glucose [Mass/Vol] 94 mg/dL Normal 70-99 [facility] Comment on above: Performed By: #### L 501.9520, L503.0106, L509.1000, L300.4310, L501.2300, L300.3900, L506.0200, L100.0100, L500.4100, L500.4050, L506.1001 #### [facility] [address] [place], [place], [id number] (658) Potassium [Moles/Vol] 4.1 mmol/L Normal 3.3-5.1 [facility] Comment on above: Performed By: #### L 501.9520, L503.0106, L509.1000, L300.4310, L501.2300, L300.3900, L506.0200, L100.0100, L500.4100, L500.4050, L506.1001 #### [facility] [address] [place], [address] Sodium [Moles/Vol] 138 mmol/L Normal 133-145 [facility] Comment on above: Performed By: #### L 501.9520, L503.0106, L509.1000, L300.4310, L501.2300, L300.3900, L506.0200, L100.0100, L500.4100, L500.4050, L506.1001 #### [facility] [address] [place], [place], [address] T PROT 7.0 g/dL Normal 5.9-8.4 [facility] Comment on above: Performed By: #### L 501.9520, L503.0106, L509.1000, L300.4310, L501.2300, L300.3900, L506.0200, L100.0100, L500.4100, L500.4050, L506.1001 #### [facility] [address] [place], [address] Urea nitrogen [Mass/Vol] 14 mg/dL Normal 4-19 [facility] Comment on above: Performed By: #### L 501.9520, L503.0106, L509.1000, L300.4310, L501.2300, L300.3900, L506.0200, L100.0100, L500.4100, L500.4050, L506.1001 #### [facility] [address] [place], [place], [id number] Eosinophil percentageOrdered By: Rajat Fast on 07-05-2025 Eosinophils/100 WBC (Bld) 2.3 % 0-5 [facility] Erythrocyte distribution wid th ratioOrdered By: Rajat Fast on 07-05-2025 Erythrocyte distribution width (RBC) [Ratio] 12.6 % 11.6-14.6 [facility] Erythrocyte distribution wid th standard deviationOrdered By: Rajat Fast on 07-05-2025 Erythrocyte distribution width (RBC) [Ratio] 43.5 fl 35.1-43.9 [facility] Folate [Mass/volume] in Seru m or PlasmaOrdered By: Rajat Fast on 07-05-2025 Folate [Mass/Vol] 11.10 ng/mL 4.60-34.80 [facility] Comment on above: Hemolysis, Results w ill be affected, Requires Recollection. Folates,Serum (Folic Acid)on 07-05-2025 FOLATES,SERUM 11.10 ng/mL Normal 4.60-34.80 [facility] Comment on above: Order Comment: N Result Comment: Hemo lysis, Results will be affected, Requires Recollection. Performed By: #### L 501.9520, L503.0106, L509.1000, L300.4310, L501.2300, L300.3900, L506.0200, L100.0100, L500.4100, L500.4050, L506.1001 ####[facility] [address] [place], [address] Glomerular filtration rate ( GFR) estimation/1.73 sq m using serum, plasma, or whole bOrdered By: Rajat on 07-05-2025 GFR/1.73 sq M.predicted among non-blacks MDRD (S/P/Bld) [Vol rate/Area] 94 mL/min/{1.73_m2} >60 [facility] Comment on above: mL/min/1.73m2 CKD-EP I Creatinine Equation (2020) Hematocrit Auto (Bld) [Volum e fraction]Ordered By: [facility] on 07-05-2025 Hematocrit (Bld) [Volume fraction] 40.0 % 37-47 [facility] Hemoglobin measurementOrdere d By: [facility] on 07-05-2025 Hemoglobin (Bld) [Mass/Vol] 13.3 g/dL 12.0-15.0 [facility] Immature granulocytes/100 WB C Auto (Bld)Ordered By: Rajat 07-05-2025 Immature granulocytes/100 WBC (Bld) 0.500 % 0.0-0.9 [facility] Comment on above: IG% - Immature Granu locytes (promyelocytes, myelocytes and metamyelocytes) > 1% indicates that a LEFT SHIFT is Present. International normalized rat io (INR) calculationOrdered By: Rajat on 07-05-2025 INR Coag (Bld) [Relative time] 1.0 {INR} [facility] LDL calc ser/plasOrdered By: Rajat on 07-05-2025 Cholesterol in LDL [Mass/Vol] 106 mg/dL [facility] Comment on above: Rybmsjyuuu=637-322 m g/dL & Higher Dtnk=610 mg/dL or greaterFriedwald Equation for LDL-C Laboratory - Chemistry and C hemistry - challengeOrdered By: Rajatfercho Norton on 07-05-2025 AST [Catalytic activity/Vol] 23 U/L <32 [facility] Lipid Profileon 07-05-2025 CHOL:HDL 2.30 Normal [facility] Comment on above: Performed By: #### L 501.9520, L503.0106, L509.1000, L300.4310, L501.2300, L300.3900, L506.0200, L100.0100, L500.4100, L500.4050, L506.1001 #### [facility] [address] [place], [place], [id number] Cholesterol [Mass/Vol] 207 mg/dL High <=[address] [facility] Comment on above: Result Comment: Chol esterol level, Desirable <200 mg/dL Borderline high cholesterol 200-239 mg/dL High cholesterol >=240 mg/dL Recommendations of the NCEP Adult Treatment Panel for the following risk-cutoff thresholds for the [place] population. Performed By: #### L 501.9520, L503.0106, L509.1000, L300.4310, L501.2300, L300.3900, L506.0200, L100.0100, L500.4100, L500.4050, L506.1001 #### [facility] [address] [place], [place], [id number] Cholesterol in HDL [Mass/Vol] 90 mg/dL Normal [facility] Comment on above: Result Comment: Khloe onal Cholesterol Education Program (NCEP) guidelines: <40 mg/dL: Low HDL-cholesterol (major risk factor for CHD) >= 60 mg/dL: High HDL-cholesterol (negative risk factor for CHD) HDL-cholesterol is affected by a number of factors, e.g. smoking, exercise, hormones, sex and age. Performed By: #### L 501.9520, L503.0106, L509.1000, L300.4310, L501.2300, L300.3900, L506.0200, L100.0100, L500.4100, L500.4050, L506.1001 #### [facility] [address] [place], [address] Cholesterol in LDL [Mass/Vol] 106 mg/dL Normal [facility] Comment on above: Result Comment: Bord bwkuqa=068-733 mg/dL Higher Elpm=512 mg/dL or greater Friedwald Equation for LDL-C Performed By: #### L 501.9520, L503.0106, L509.1000, L300.4310, L501.2300, L300.3900, L506.0200, L100.0100, L500.4100, L500.4050, L506.1001 #### [facility] [address] [place], [address] Cholesterol in VLDL [Mass/Vol] 11 mg/dL Normal 5-40 [facility] Comment on above: Performed By: #### L 501.9520, L503.0106, L509.1000, L300.4310, L501.2300, L300.3900, L506.0200, L100.0100, L500.4100, L500.4050, L506.1001 #### [facility] [address] [place], [address] Triglyceride [Mass/Vol] 57 mg/dL Normal [facility] Comment on above: Result Comment: The drugs N-Acetylcysteine and Metamizole may falsely depress this assay. Normal range: <150 mg/dL Borderline High: 150-199 mg/dL High: 200-499 mg/dL Very High: >500 mg/dL Performed By: #### L 501.9520, L503.0106, L509.1000, L300.4310, L501.2300, L300.3900, L506.0200, L100.0100, L500.4100, L500.4050, L506.1001 #### [facility] [address] [place], [address] MCV (mean corpuscular volume ) determinationOrdered By: Rajat Fast on 07-05-2025 MCV (RBC) [Entitic vol] 93.2 fL 81-99 [facility] Mean corpuscular hemoglobin (MCH) determinationOrdered By: Rajat Fast on 07-05-2025 MCH (RBC) [Entitic mass] 31.0 pg 27.0-32.0 [facility] Mean corpuscular hemoglobin concentration (MCHC) determinationOrdered By: Rajat Fast on 07-05-2025 MCHC (RBC) [Mass/Vol] 33.3 g/dL 32-36 [facility] Mean platelet volume determi nationOrdered By: Rajat Fast on 07-05-2025 Platelet mean volume (Bld) [Entitic vol] 9.3 fL 6.2-12.0 [facility] Monocyte percentageOrdered B y: Rajat Fast on 07-05-2025 Monocytes/100 WBC (Bld) 5.0 % 0-10 [facility] Neutrophil percentageOrdered By: Rajat Fast on 07-05-2025 Neutrophils/100 WBC (Bld) 70.1 % High 47-70 [facility] Nucleated red blood cell per centageOrdered By: Rajat Fast on 07-05-2025 Nucleated RBC/100 WBC (Bld) [Ratio] 0 % 0-5 [facility] PTHINon 07-05-2025 PTH 47 pg/mL Normal 11-61 [facility] Comment on above: Performed By: #### L 501.9520, L503.0106, L509.1000, L300.4310, L501.2300, L300.3900, L506.0200, L100.0100, L500.4100, L500.4050, L506.1001 #### [facility] [address] [place], [place], [id number] Partial Thromboplast Timeon 07-05-2025 aPTT Coag (Bld) [Time] 22.7 s Low 24.1-36.[address] [facility] Comment on above: Performed By: #### L 501.9520, L503.0106, L509.1000, L300.4310, L501.2300, L300.3900, L506.0200, L100.0100, L500.4100, L500.4050, L506.1001 ####[facility] [address] [place], [address] Phosphoruson 07-05-2025 Phosphate [Mass/Vol] 3.2 mg/dL Normal 2.7-4.5 [facility] Comment on above: Performed By: #### L 501.9520, L503.0106, L509.1000, L300.4310, L501.2300, L300.3900, L506.0200, L100.0100, L500.4100, L500.4050, L506.1001 ####[facility] [address] [place], [place], [id number] Platelet countOrdered By: Colindres Fast on 07-05-2025 Platelets (Bld) [#/Vol] 235 10*3/uL 150-450 [facility] Potassium measurement (mass/ volume)Ordered By: Rajat Fast on 07-05-2025 Potassium (Unsp spec) [Mass/Vol] 4.1 mmol/L 3.3-5.1 [facility] Prothrombin Time w/INRon INR Coag (PPP) [Relative time] 1.0 {INR} Normal [facility] Comment on above: Performed By: #### L 501.9520, L503.0106, L509.1000, L300.4310, L501.2300, L300.3900, L506.0200, L100.0100, L500.4100, L500.4050, L506.1001 ####[facility] [address] [place], [place], [id number] PT Coag (PPP) [Time] 13.3 s Normal 11.7-14.9 [facility] Comment on above: Performed By: #### L 501.9520, L503.0106, L509.1000, L300.4310, L501.2300, L300.3900, L506.0200, L100.0100, L500.4100, L500.4050, L506.1001 ####[facility] [address] [place], [address] Prothrombin timeOrdered By: Rajat Fast on 07-05-2025 PT Coag (PPP) [Time] 13.3 s 11.7-14.9 [facility] RBC Auto (Bld) [#/Vol]Ordere d By: Rajat Fast on 07-05-2025 RBC (Bld) [#/Vol] 4.29 10*6/uL 4.2-5.4 [facility] Screening total cholesterol/ high density lipoprotein (HDL) cholesterol ratioOrdered By: Rajat on 07-05-2025 Cholesterol.total/Maggie sterol in HDL [Mass ratio] 2.30 {ratio} [facility] Serum creatinine measurement (mass/volume)Ordered By: Rajat on 07-05-2025 Creatinine [Mass/Vol] 0.66 mg/dL Low 0.70-1.20 [facility] Serum globulin measurementOr dered By: Rajat 07-05-2025 Globulin (S) [Mass/Vol] 2.7 g/dL 2.2-4.2 [facility] Serum glucose measurement (m ass/volume)Ordered By: Rajat 07-05-2025 Glucose [Mass/Vol] 94 mg/dL 70-99 [facility] Serum or plasma alanine teresa otransferase (ALT) measurementOrdered By: Rajat on 07-05-2025 ALT [Catalytic activity/Vol] 17 U/L <35 [facility] Serum or plasma albumin peggy urement (mass/volume)Ordered By: Rajat Fast 07-05-2025 Albumin [Mass/Vol] 4.3 g/dL 3.4-4.8 [facility] Serum or plasma albumin/glob ulin mass ratioOrdered By: Rajat Fast 07-05-2025 Albumin/Globulin [Mass ratio] 1.6 {ratio} 0.9-2.4 [facility] Serum or plasma alkaline debbie sphatase measurementOrdered By: Rajat on 07-05-2025 ALP [Catalytic activity/Vol] 61 U/L 35-104 [facility] Serum or plasma calcium peggy urement (mass/volume)Ordered By: on 07-05-2025 Calcium [Mass/Vol] 10.2 mg/dL 7.6-11.0 [facility] Serum or plasma cholesterol in HDL measurement (mass/volume)Ordered By: on 07-05-2025 Cholesterol in HDL [Mass/Vol] 90 mg/dL >40 [facility] Comment on above: National Cholesterol Education Program (NCEP) guidelines:<40 mg/dL: Low HDL-cholesterol (major risk factor for CHD)>= 60 mg/dL: High HDL-cholesterol (negative risk factor for CHD)HDL-cholesterol is affected by a number of factors, e.g. smoking, exercise, hormones, sex and age. Serum or plasma cholesterol measurement (mass/volume)Ordered By: on 07-05-2025 Cholesterol [Mass/Vol] 207 mg/dL High <[address] [facility] Comment on above: Cholesterol level, D esirable <200 mg/dLBorderline high cholesterol 200-239 mg/dLHigh cholesterol >=240 mg/dLRecommendations of the NCEP Adult Treatment Panel for the following risk-cutoff thresholds for the [place] population. Serum or plasma urea nitroge n measurement (mass/volume)Ordered By: on 07-05-2025 Urea nitrogen [Mass/Vol] 14 mg/dL 4-19 [facility] Sodium levelOrdered By: a Fast on 07-05-2025 Sodium [Moles/Vol] 138 mmol/L 133-145 [facility] TSH DL <= 0.005 mIU/L QnOrde red By: Rajat Fast on 07-05-2025 TSH Qn 1.830 uIU/mL 0.300-4.200 [facility] Thyroid Stim Hormone (TSH)on 07-05-2025 TSH 1.830 uIU/mL Normal 0.300-4.200 [facility] Comment on above: Performed By: #### L 501.9520, L503.0106, L509.1000, L300.4310, L501.2300, L300.3900, L506.0200, L100.0100, L500.4100, L500.4050, L506.1001 ####[facility] [address] [place], [place], [id number] Total proteinOrdered By: Emelia ra Fast on 07-05-2025 Protein [Mass/Vol] 7.0 g/dL 5.9-8.4 [facility] Triglycerides measurementOrd ered By: Rajat Fast on 07-05-2025 Triglyceride [Mass/Vol] 57 mg/dL <199 [facility] Comment on above: The drugs N-Acetylcy steine and Metamizole may falsely depress this assay. Normal range: <150 mg/dLBorderline High: 150-199 mg/dLHigh: 200-499 mg/dLVery High: >500 mg/dL Vitamin B12on 07-05-2025 Cobalamin (Vitamin B12) [Mass/Vol] 1337 pg/mL High 180-914 [facility] Comment on above: Performed By: #### L 501.9520, L503.0106, L509.1000, L300.4310, L501.2300, L300.3900, L506.0200, L100.0100, L500.4100, L500.4050, L506.1001 ####[facility] [address] [place], [place], [id number] Vitamin B12 ser/plasOrdered By: Rajat Fast on 07-05-2025 Cobalamin (Vitamin B12) [Mass/Vol] 1337 pg/mL High 180-914 [facility] Vitamin D,25 Hydroxyon 07-05 Vitamin D 25-OH 53.9 ng/mL Normal 30-100 [facility] Comment on above: Result Comment: Charo min D Status Deficiency: <20 ng/mL (50nmol/L) Insufficiency: 20-30 ng/mL (50-75 nmol/L) Sufficiency: 30-100 ng/mL (75-250 nmol/L) Toxicity: >100 ng/mL (>250 nmol/L) Performed By: #### L 501.9520, L503.0106, L509.1000, L300.4310, L501.2300, L300.3900, L506.0200, L100.0100, L500.4100, L500.4050, L506.1001 ####[facility] [address] [place], [address] White blood cell (WBC) count Ordered By: Rajat Norton on 07-05-2025 WBC (Bld) [#/Vol] 6.0 10*3/uL 4.4-11.0 [facility] CNPNon 06-25-2025 CNPN Telephone (KHARI) ERIN DYSON ([id number]) 1955 F Date Time Provider Department 06/25/25 OZZIE ROBERTSON JR During your visit today, we recorded the following information about you: Italia Ruvalcaba LPN 06/25/2025 9:15 AM Signed OV note from 06/21/[address] Robertson forwarded to Dr Rajat Norton. Italia Ruvalcaba LPN Allergies As of Date: [...] Encounter Status:Closed by ITALIA RUVALCABA on 06/25/25 [facility] CNOVon 06-21-2025 CNOV Office Visit (KHARI ) KARISERIN TAMEZ ([id number]) 1955 F Date Time Provider Department 06/21/25 11:40 AM [...] to stop Namenda. States following someone on [employer] endorsing use of supplements. Still working. Lowest MOCA was 08/19/23: . Highest in 04/2024 after starting Namenda: . MODIFIED MOCA: Immediate recall: 04/01 Number repeat: 11/29 Sentence repeat: 12/30 Abstract: 12/30 Serial 7s: 11/30 Namin/3 A tap: 11/28 Orientation: 05/03 Delayed recall: 01/02 (01/30 with cues). Words being with F: 0/1 Cube drawin/1 Clock drawin3 TOTAL Sleeping well. No s/s to suggest [...] General appearan (more content not included)... Normal [facility] Bone density reportOrdered B y: Rafal Dos Santos on 06-04-2025 Study report Skeletal system DXA [facility] Imaging Services [address] [place] [address] Dexa Bone Density Study MR#: [id number] Acct: [id number] Name: ERIN DYSON APOLLO Rep #: [id number] : 1955 F 69 From: Kaleb Dos Santos MD PCP: Dr. Rajat Norton, DO Status: REG CLI Study:Dexa Bone Density Study Date of Exam: 06/04/25 Exam# [id number] Ordering Dr: Emelia Norton ra, DO PROCEDURE: DEXA BONE DENSITY STUDY [...] Recommend follow-up as clinically warranted. Reading Location: [facility] CC: Dr. Rajat Norton DO ~ Insole And Outsole Preparer: Signed [facility] Breast imaging reportOrdered By: Rafal Dos Santos on 06-04-2025 Study report [facility] Imaging Services [address] [place], [place] [address] SCRN MAMM (CAD)W/ARTI BILAT MR#: [id number] Acct: [id number] Name: ERIN DYSON APOLLO Rep #: [id number] : 1955 F 69 From: Kaleb Dos Santos MD PCP: Dr. Rajat Norton DO Status: REG CLI Study:SCRN MAMM (CAD)W/ARTI BILAT Date of Exa m: 06/04/25 Exam# [id number] Ordering Dr: Emelia Norton ra, DO EXAM: SCRN MAMM (CAD)W/ARTI BILAT [...] be mailed to the patient. Reading Location: [place] [address] CC: Dr. Rajat Norton DO ~ Insole And Outsole Preparer: Signed [facility] Dexa Bone Density Studyon Dexa Bone Density Study [facility] Imaging Services [address] [place] [address] Dexa Bone Density Study MR#: [id number] Acct: [id number] Name: ERIN DYSON APOLLO Rep #: [id number] : 1955 F 69 From: Rafal rosas MD PCP: Dr. Rajat Norton DO Status: REG CLI Study: Dexa Bone Density Study Date of Exam: 06/04/25 Exam# [id number] Ordering Dr: Rajat Norton DO PROCEDURE: DEXA BONE DENSITY STUDY 06/04/2025 [...] Recommend follow-up as clinically warranted. Reading Location: [place] [address] CC: Dr. 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 Normal [facility] SCRN MAMM (CAD)W/ARTI BILATo n 06-04-2025 SCRN MAMM (CAD)W/ARTI BILAT [facility] Imaging Services [address] [place] [address] SCRN MAMM (CAD)W/ARTI BILAT MR#: [id number] Acct: [id number] Name: ERIN DYSON APOLLO Rep #: [id number] : 1955 F 69 From: Rafal rosas MD PCP: Dr. Rajat Norton DO Status: REG CLI Study: SCRN MAMM (CAD)W/ARTI BILAT Date of Exam: 07/22 Exam# [id number] Ordering Dr: Rajat Norton DO EXAM: SCRN MAMM (CAD)W/ARTI BILAT DATE: [...] be mailed to the patient. Reading Location: [place] [address] CC: Dr. 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 Normal [facility] Office Visit Reporton 2024 Office Visit Report [facility] Services [address] 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 COVID/ [facility] Chief Complaint: left hand cat scratch Allergies No Known Allergies Allergy (Verified 05/20/25 06:18) Have you fallen in the past year?: No Office Procedures [facility] Billing Sheet Covid Covid Swab-Rapid: Yes Results POC [facility] COV,FluAB,RSV PCR CEPHEID COVID PCR Not DETECTED Last Edit by Bernice Marmolejo MA on 05/20/25 07:03 CEPHEID FLU AB PCR NOT DETECTED FLU A B Last Edit by Bernice Marmolejo MA on 05/20/25 07:03 CEPHEID RSV PCR NOT DETECTED Last Edit by eBrnice Marmolejo MA on 05/20/25 07:03 Clinical Quality Measures Falls Risk Screening/Assistive Devices Have you fallen in the past year?: No 06/04/25 1728 Date Juan Miller PA PA Cosigner Signature: Date (if applicable) CC: Normal [facility] Chest PA and Lateralon 05-28 Chest PA and Lateral [facility] Imaging Services [address] [place] [address] Chest PA and Lateral MR#: [id number] Acct: [id number] Name: ERIN DYSON Rep #: [id number] : 1955 F 69 From: Dani Johnston MD PCP: Dr. Rajat Norton DO Status: [facility] CLI Study: Chest PA and Lateral Date of Exam: 05/28/25 Exam# [id number] Ordering Dr: Rajat Norton DO PROCEDURE: CHEST PA AND LATERAL 05/28/2025 [...] chest. Reading Location: [facility] CC: Dr. 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 Normal [facility] Echo Completeon 05-28-2025 Echo Complete [facility] [address] [place] [address] Echo Complete 05/28/25 1201 MR#: [id number] Acct: [id number] Name: ERIN DYSON Rep #: [id number] : 1955 69 From: Phillip Borrego MD Attending Dr: Dr. Rajat Norton DO Status: REG CL I Ordering Dr: Rajat Norton DO Date: 05/28/25 Location: [facility] Sex: F C Admitted: Reason For Study [...] insufficiency. Structurally normal valves. Ordering Physician: Rajat Norton Referring Physician: Fast, Rajat Performed By: Roof RVT RDCS, Kaya and Student 05/28/25 1617 Date Phillip Borrego MD CC: Dr. Rajat Norton DO Date Dictated: 05/28/25 1201 Date Transcribed: 05/28/251616 Insole And Outsole Preparer: Signed Normal [facility] Echocardiogram study reportO rdered By: Phillip Borrego on 05-28-2025 Study report [facility] [address] [place] [address] Echo Complete 05/28/25 1201 MR#: [id number] Acct: [id number] Name: ERIN DYSON APOLLO Rep #:[id number] : 1955 69 From: Phillip Daniels Attending Dr: Dr. Rajat Norton DO atus: REG CLI Ordering Dr: Rajat Norton DO Date: 12/22 Location: [facility] Sex: F C Admitted: Reason For Study [...] insufficiency. Structurally normal valves. Ordering Physician: Rajat Norton Referring Physician: Rajat Norton Performed By: Suyapa POLLACK RDVITALIY, Kaya and Student 05/28/25 1617 Date _ Phillip Borrego MD CC: Dr. Rajat Norton, DO ~ Date Dictated: 05/28/25 1201 Date Transcribed: 05/28/25 1617 Insole And Outsole Preparer: Signed [facility] Work Phone: Laboratory - Microbiology an d Antimicrobial susceptibilityOrdered By: Juan Miller on 05-20-2025 SARS-CoV-2 (COVID-19) RNA HUSSAIN+probe Ql (Unsp spec) Not detected [facility] No Panel InformationOrdered By: Juan Miller on 05-20-2025 POC Nasal Swab Influenza A,B Not detected [facility] POC Nasal Swab RSV Not detected [facility] Urgent Care Visit Reporton 0 05-20-2025 Urgent Care Visit Report [facility] [address], [address] [place], [place] [address] OFFICE VISIT Date of Service: 05/20/25 MR#: [id number] Acct: [id number] Name: ERIN DYSON APOLLO Rep #: [id number] : 1955 Provider: ANDRÉS Hernandez Age/Sex: 69/F Location: [facility] Status: Signed Intake Vital Signs [...] DAILY 03/11/23 05/20/25 History mg tablet omega 8-rzf-rtr-fish oil 60 mg-90 1 cap PO DAILY [...] took one at 3pm and then 3am. 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 No egxa-irz-bebgjwm medications have been taken to assist. Non-smoker. [...] normal Lymphatic (more content not included)... Normal [facility] Urgent Care Visit Reporton 0 05-19-2025 Urgent Care Visit Report [facility] [address], [address] [place] [address] OFFICE VISIT Date of Service: 05/19/25 MR#: [id number] Acct: [id number] Name: ERIN DYSON Rep #: [id number] : 1955 Provider: KATHLEEN lowry Age/Sex: 69/F Location: [facility] Status: Signed Intake Vital Signs [...] DAILY 03/11/23 05/19/25 History mg tablet omega 1-qxk-jsn-fish oil 60 mg-90 1 cap PO DAILY [...] she is worse and now has wheezing. 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 Normal [facility] Absolute lymphocyte countOrd ered By: HEALTH ASSESSMENT on 05-02-2025 Lymphocytes Auto (Unsp spec) [#/Vol] 1.46 10*3/uL 0.83-4.51 [facility] Absolute neutrophil countOrd ered By: HEALTH ASSESSMENT on 05-02-2025 Neutrophils (Bld) [#/Vol] 2.6 10*3/uL 2.0-7.7 [facility] Absolute nucleated red blood cell countOrdered By: HEALTH ASSESSMENT on 05-02-2025 Nucleated RBC (Bld) [#/Vol] 0.00 10*3/uL 0-5 [facility] Anion gap in Serum or Plasma Ordered By: HEALTH ASSESSMENT on 05-02-2025 Anion gap [Moles/Vol] 11 mmol/L 5-15 [facility] BUN/creatinine ratioOrdered By: HEALTH ASSESSMENT on 05-02-2025 Urea nitrogen/Creatinine [Mass ratio] 15.3 mg/mg 10-20 [facility] Bilirubin Test strip Ql (U)O rdered By: Rajat Norton on 05-02-2025 Bilirubin Ql (U) Negative Negative [facility] Bilirubin directOrdered By: HEALTH ASSESSMENT on 05-02-2025 Bilirubin.direct [Mass/Vol] 0.15 mg/dL 0.00-0.30 [facility] Bilirubin, totalOrdered By: HEALTH ASSESSMENT on 05-02-2025 Bilirubin [Mass/Vol] 0.30 mg/dL 0.00-1.30 [facility] Blood band neutrophil count as percentage of total leukocytesOrdered By: HEALTH ASSESSMENT on 05-02-2025 Band form neutrophils/100 WBC (Bld) 58.0 % 47-70 [facility] CBC, Employeeon 05-02-2025 Absolute Lymph 1.46 X10 3/uL Normal 0.83-4.51 [facility] Comment on above: Performed By: #### L 100.0200, L500.2900, L400.0100 ####[facility] [address] [place], [address] Absolute Neut 2.6 X10 3/uL Normal 2.0-7.7 [facility] Comment on above: Performed By: #### L 100.0200, L500.2900, L400.0100 ####[facility] [address] [place], [address] Basophils/100 WBC (Bld) 0.5 % Normal 0-1 [facility] Comment on above: Performed By: #### L 100.0200, L500.2900, L400.0100 ####[facility] [address] [place], [address] Eosinophils/100 WBC (Bld) 2.5 % Normal 0-5 [facility] Comment on above: Performed By: #### L 100.0200, L500.2900, L400.0100 ####[facility] [address] [place], [address] Erythrocyte distribution width (RBC) [Ratio] 13.0 % Normal 11.6-14.6 [facility] Comment on above: Performed By: #### L 100.0200, L500.2900, L400.0100 ####[facility] [address] [place], [address] Hematocrit (Bld) [Volume fraction] 39.4 % Normal 37-47 [facility] Comment on above: Performed By: #### L 100.0200, L500.2900, L400.0100 ####[facility] [address] [place], [address] Hemoglobin (Bld) [Mass/Vol] 13.4 g/dL Normal 12.0-15.0 [facility] Comment on above: Performed By: #### L 100.0200, L500.2900, L400.0100 ####[facility] [address] [place], [address] Lymphocytes/100 WBC (Bld) 33.1 % Normal 19-41 [facility] Comment on above: Performed By: #### L 100.0200, L500.2900, L400.0100 ####[facility] [address] [place], [address] MCH (RBC) [Entitic mass] 31.8 pg Normal 27.0-32.0 [facility] Comment on above: Performed By: #### L 100.0200, L500.2900, L400.0100 ####[facility] [address] [place], [address] MCHC (RBC) [Mass/Vol] 34.0 g/dL Normal 32-36 [facility] Comment on above: Performed By: #### L 100.0200, L500.2900, L400.0100 ####[facility] [address] [place], [address] MCV (RBC) [Entitic vol] 93.4 fL Normal 81-99 [facility] Comment on above: Performed By: #### L 100.0200, L500.2900, L400.0100 ####[facility] [address] [place], [address] Monocytes/100 WBC (Bld) 5.7 % Normal 0-10 [facility] Comment on above: Performed By: #### L 100.0200, L500.2900, L400.0100 ####[facility] [address] [place], [address] Neutrophils/100 WBC (Bld) 58.0 % Normal 47-70 [facility] Comment on above: Performed By: #### L 100.0200, L500.2900, L400.0100 ####[facility] [address] [place], [address] NRBC # 0.00 10 3/uL Normal 0-5 [facility] Comment on above: Performed By: #### L 100.0200, L500.2900, L400.0100 ####[facility] [address] [place], [address] Nucleated RBC (Bld) [#/Vol] 0 10*3/uL Normal 0-5 [facility] Comment on above: Performed By: #### L 100.0200, L500.2900, L400.0100 ####[facility] [address] [place], [address] Platelet mean volume (Bld) [Entitic vol] 9.1 fL Normal 6.2-12.0 [facility] Comment on above: Performed By: #### L 100.0200, L500.2900, L400.0100 ####[facility] [address] [place], [address] Platelets (Bld) [#/Vol] 228 10*3/uL Normal 150-450 [facility] Comment on above: Performed By: #### L 100.0200, L500.2900, L400.0100 ####[facility] [address] [place], [address] RBC (Bld) [#/Vol] 4.22 10*6/uL Normal 4.2-5.4 [facility] Comment on above: Performed By: #### L 100.0200, L500.2900, L400.0100 ####[facility] [address] [place], [address] RDW SD 44.7 fl High 35.1-43.9 [facility] Comment on above: Performed By: #### L 100.0200, L500.2900, L400.0100 ####[facility] [address] [place], [address] WBC (Bld) [#/Vol] 4.4 10*3/uL Normal 4.4-11.0 [facility] Comment on above: Performed By: #### L 100.0200, L500.2900, L400.0100 ####[facility] [address] [place], [address] Calculated very low density lipoprotein (VLDL) cholesterol measurementOrdered By: HEALTH ASSESSMENT on 05-02-2025 Calculated very low density lipoprotein (VLDL) cholesterol measurement 9 mg/dL 5-40 [facility] Carbon dioxide, total [Moles /volume] in Central venous bloodOrdered By: HEALTH ASSESSMENT on 05-02-2025 CO2 [Moles/Vol] 22.1 mmol/L 21.0-32.0 [facility] Chloride assayOrdered By: HE ALTH ASSESSMENT on 05-02-2025 Chloride [Moles/Vol] 106 mmol/L 98-108 [facility] Employee Profileon Cholesterol in LDL [Mass/Vol] 93 mg/dL Normal 0-130 [facility] Comment on above: Performed By: #### L 100.0200, L500.2900, L400.0100 ####[facility] [address] [place], [address] Erythrocyte distribution wid th ratioOrdered By: HEALTH ASSESSMENT on 05-02-2025 Erythrocyte distribution width (RBC) [Ratio] 13.0 % 11.6-14.6 [facility] Erythrocyte distribution wid th standard deviationOrdered By: HEALTH ASSESSMENT on 05-02-2025 Erythrocyte distribution width (RBC) [Ratio] 44.7 fl High 35.1-43.9 [facility] Glomerular filtration rate ( GFR) estimation/1.73 sq m using serum, plasma, or whole bOrdered By: HEALTH ASSESSMENT on 05-02-2025 GFR/1.73 sq M.predicted among non-blacks MDRD (S/P/Bld) [Vol rate/Area] 90 mL/min/{1.73_m2} >60 [facility] Comment on above: mL/min/1.73m2 CKD-EP I Creatinine Equation (2020) Hematocrit Auto (Bld) [Volum e fraction]Ordered By: HEALTH ASSESSMENT on 05-02-2025 Hematocrit (Bld) [Volume fraction] 39.4 % 37-47 [facility] Hemoglobin measurementOrdere d By: HEALTH ASSESSMENT on 05-02-2025 Hemoglobin (Bld) [Mass/Vol] 13.4 g/dL 12.0-15.0 [facility] Ketones Test strip Ql (U)Ord ered By: Rajat Fast on 05-02-2025 Ketones Ql (U) Negative Negative [facility] Laboratory - Chemistry and C hemistry - challengeOrdered By: HEALTH ASSESSMENT on 05-02-2025 AST [Catalytic activity/Vol] 29 U/L <32 [facility] Lactate dehydrogenase (LDH) measurementOrdered By: HEALTH ASSESSMENT on 05-02-2025 LDH [Catalytic activity/Vol] 101 U/L 84-246 [facility] MCV (mean corpuscular volume ) determinationOrdered By: HEALTH ASSESSMENT on 05-02-2025 MCV (RBC) [Entitic vol] 93.4 fL 81-99 [facility] Mean corpuscular hemoglobin (MCH) determinationOrdered By: HEALTH ASSESSMENT on 05-02-2025 MCH (RBC) [Entitic mass] 31.8 pg 27.0-32.0 [facility] Mean corpuscular hemoglobin concentration (MCHC) determinationOrdered By: HEALTH ASSESSMENT on 05-02-2025 MCHC (RBC) [Mass/Vol] 34.0 g/dL 32-36 [facility] Mean platelet volume determi nationOrdered By: HEALTH ASSESSMENT on 05-02-2025 Platelet mean volume (Bld) [Entitic vol] 9.1 fL 6.2-12.0 [facility] Microalb:Creat Ratio,Random URon 05-02-2025 Creatinine [Mass/Vol] 41.00 mg/dL Normal 28.00- 217.0 0 [facility] Comment on above: Performed By: #### L 502.0250, L506.1001, L400.0001 ####[facility] [address] [place], [address] MALB:CREAT UNABLE TO CALCULATE Normal [facility] Comment on above: Performed By: #### L 502.0250, L506.1001, L400.0001 ####[facility] [address] [place], [address] MICROALBUMIN,UR < 12.0 Normal NO RANGE EST. [facility] Comment on above: Performed By: #### L 502.0250, L506.1001, L400.0001 ####[facility] [address] [place], [address] Microalbumin/creat ratio urO rdered By: Rajat Norton on 05-02-2025 Urine microalbumin/creatinine ratio measurement UNABLE TO CALCULATE mg/g CRE [facility] Microscopic analysis of urin e for red blood cells (RBC)Ordered By: Rajat Norton on 05-02-2025 Microscopic analysis of urine for red blood cells (RBC) 0 SEEN /hpf 0-5 [facility] Mucus LM Ql (Urine sed)Order ed By: Rajat Norton on 05-02-2025 Mucus Ql (Urine sed) 0 SEEN /hpf [facility] Nitrite Test strip Ql (U)Ord ered By: Rajat Norton on 05-02-2025 Nitrite Ql (U) Negative Negative [facility] Nucleated red blood cell per centageOrdered By: HEALTH ASSESSMENT on 05-02-2025 Nucleated RBC/100 WBC (Bld) [Ratio] 0 % 0-5 [facility] Platelet countOrdered By: ALTH ASSESSMENT on 05-02-2025 Platelets (Bld) [#/Vol] 228 10*3/uL 150-450 [facility] Potassium measurement (mass/ volume)Ordered By: HEALTH ASSESSMENT on 05-02-2025 Potassium (Unsp spec) [Mass/Vol] 4.1 mmol/L 3.3-5.1 [facility] Protein Test strip Ql (U)Ord ered By: Rajat Fast on 05-02-2025 Protein Ql (U) Negative Negative [facility] RBC Auto (Bld) [#/Vol]Ordere d By: HEALTH ASSESSMENT on 05-02-2025 RBC (Bld) [#/Vol] 4.22 10*6/uL 4.2-5.4 [facility] Random urine creatinine peggy urement (mass/volume)Ordered By: Rajat Fast on 05-02-2025 Creatinine Unsp time (U) [Mass/Vol] 41.00 mg/dL 28.00-217.0 0 [facility] Screening total cholesterol/ high density lipoprotein (HDL) cholesterol ratioOrdered By: HEALTH ASSESSMENT on 05-02-2025 Cholesterol.total/Maggie sterol in HDL [Mass ratio] 2.18 {ratio} [facility] Serum creatinine measurement (mass/volume)Ordered By: HEALTH ASSESSMENT on 05-02-2025 Creatinine [Mass/Vol] 0.72 mg/dL 0.70-1.20 [facility] Serum globulin measurementOr dered By: HEALTH ASSESSMENT on 05-02-2025 Globulin (S) [Mass/Vol] 2.4 g/dL 2.2-4.2 [facility] Serum glucose measurement (m ass/volume)Ordered By: HEALTH ASSESSMENT on 05-02-2025 Glucose [Mass/Vol] 92 mg/dL 70-99 [facility] Serum or plasma alanine teresa otransferase (ALT) measurementOrdered By: HEALTH ASSESSMENT on 05-02-2025 ALT [Catalytic activity/Vol] 17 U/L <35 [facility] Serum or plasma albumin peggy urement (mass/volume)Ordered By: HEALTH ASSESSMENT on 05-02-2025 Albumin [Mass/Vol] 4.0 g/dL 3.4-4.8 [facility] Serum or plasma albumin/glob ulin mass ratioOrdered By: HEALTH ASSESSMENT on 05-02-2025 Albumin/Globulin [Mass ratio] 1.7 {ratio} 0.9-2.4 [facility] Serum or plasma alkaline debbie sphatase measurementOrdered By: HEALTH ASSESSMENT on 05-02-2025 ALP [Catalytic activity/Vol] 51 U/L 35-104 [facility] Serum or plasma calcium peggy urement (mass/volume)Ordered By: HEALTH ASSESSMENT on 05-02-2025 Calcium [Mass/Vol] 9.6 mg/dL 7.6-11.0 [facility] Serum or plasma cholesterol in HDL measurement (mass/volume)Ordered By: HEALTH ASSESSMENT on 05-02-2025 Cholesterol in HDL [Mass/Vol] 86 mg/dL >40 [facility] Comment on above: National Cholesterol Education Program (NCEP) guidelines:<40 mg/dL: Low HDL-cholesterol (major risk factor for CHD)>= 60 mg/dL: High HDL-cholesterol (negative risk factor for CHD)HDL-cholesterol is affected by a number of factors, e.g. smoking, exercise, hormones, sex and age. Serum or plasma cholesterol in LDL measurement (mass/volume)Ordered By: HEALTH ASSESSMENT on 05-02-2025 Cholesterol in LDL [Mass/Vol] 93 mg/dL 0-130 [facility] Serum or plasma cholesterol measurement (mass/volume)Ordered By: [facility] ASSESSMENT on 05-02-2025 Cholesterol [Mass/Vol] 188 mg/dL <[address] [facility] Comment on above: Cholesterol level, D esirable <200 mg/dLBorderline high cholesterol 200-239 mg/dLHigh cholesterol >=240 mg/dLRecommendations of the NCEP Adult Treatment Panel for the following risk-cutoff thresholds for the [place] population. Serum or plasma urea nitroge n measurement (mass/volume)Ordered By: HEALTH ASSESSMENT on 05-02-2025 Urea nitrogen [Mass/Vol] 11 mg/dL 4-19 [facility] Serum or plasma uric acid me asurement (mass/volume)Ordered By: [facility] ASSESSMENT on 05-02-2025 Urate [Mass/Vol] 4.2 mg/dL 2.6-6.0 [facility] Comment on above: The drugs N-Acetylcy steine and Metamizole may falsely depress this assay. Sodium levelOrdered By: [facility] ASSESSMENT on 05-02-2025 Sodium [Moles/Vol] 139 mmol/L 133-145 [facility] Squamous epithelial cells de tection in urine sediment by light microscopyOrdered By: Rajat Norton on 05-02-2025 Epithelial cells.squamous LM Ql (Urine sed) 5-10 SEEN /hpf - [facility] Total proteinOrdered By: JAIDEN LTH ASSESSMENT on 05-02-2025 Protein [Mass/Vol] 6.5 g/dL 5.9-8.4 [facility] Triglycerides measurementOrd ered By: HEALTH ASSESSMENT on 05-02-2025 Triglyceride [Mass/Vol] 45 mg/dL <199 [facility] Comment on above: The drugs N-Acetylcy steine and Metamizole may falsely depress this assay. Normal range: <150 mg/dLBorderline High: 150-199 mg/dLHigh: 200-499 mg/dLVery High: >500 mg/dL Urinalysis, Completeon 05-02 EPI,SQUAMOUS 5-10 SEEN Normal -10 [facility] Comment on above: Order Comment: Urine , Random Performed By: #### L 502.0250, L506.1001, L400.0001 ####[facility] [address] [place], [address] BACTERIA 0 SEEN Normal None Seen [facility] Comment on above: Order Comment: Urine , Random Performed By: #### L 502.0250, L506.1001, L400.0001 ####[facility] [address] [place], [address] Mucus Ql (Urine sed) 0 SEEN Normal [facility] Comment on above: Order Comment: Urine , Random Performed By: #### L 502.0250, L506.1001, L400.0001 ####[facility] [address] [place], [address] RBC 0 SEEN Normal 0-5 [facility] Comment on above: Order Comment: Urine , Random Performed By: #### L 502.0250, L506.1001, L400.0001 ####[facility] [address] [place], [address] WBC 0 SEEN Normal 0-5 [facility] Comment on above: Order Comment: Urine , Random Performed By: #### L 502.0250, L506.1001, L400.0001 ####[facility] [address] [place], [address] Urinalysis, Employeeon 05-02 BILIRUBIN URINE Normal Negative [facility] Comment on above: Order Comment: Urine , Random Result Comment: UAC ORDERED Performed By: #### L 100.0200, L500.2900, L400.0100 ####[facility] [address] [place], [address] Clarity (U) Normal Clear [facility] Comment on above: Order Comment: Urine , Random Result Comment: UAC ORDERED Performed By: #### L 100.0200, L500.2900, L400.0100 ####[facility] [address] [place], [address] Color (U) Normal Yellow [facility] Comment on above: Order Comment: Urine , Random Result Comment: UAC ORDERED Performed By: #### L 100.0200, L500.2900, L400.0100 ####[facility] [address] [place], [address] GLUCOSE, UR Normal Normal [facility] Comment on above: Order Comment: Urine , Random Result Comment: UAC ORDERED Performed By: #### L 100.0200, L500.2900, L400.0100 ####[facility] [address] [place], [address] KETONE UR Normal Negative [facility] Comment on above: Order Comment: Urine , Random Result Comment: UAC ORDERED Performed By: #### L 100.0200, L500.2900, L400.0100 ####[facility] [address] [place], [address] LEUK ESTERASE Normal Negative [facility] Comment on above: Order Comment: Urine , Random Result Comment: UAC ORDERED Performed By: #### L 100.0200, L500.2900, L400.0100 ####[facility] [address] [place], [address] Nitrite Ql (U) Normal Negative [facility] Comment on above: Order Comment: Urine , Random Result Comment: UAC ORDERED Performed By: #### L 100.0200, L500.2900, L400.0100 ####[facility] [address] [place], [address] OCCULT BLOOD-UR Normal Negative [facility] Comment on above: Order Comment: Urine , Random Result Comment: UAC ORDERED Performed By: #### L 100.0200, L500.2900, L400.0100 ####[facility] [address] [place], [address] pH UR Normal 5.0 - 8.0 [facility] Comment on above: Order Comment: Urine , Random Result Comment: UAC ORDERED Performed By: #### L 100.0200, L500.2900, L400.0100 ####[facility] [address] [place], [address] PROT DIPSTX Normal Negative [facility] Comment on above: Order Comment: Urine , Random Result Comment: UAC ORDERED Performed By: #### L 100.0200, L500.2900, L400.0100 ####[facility] [address] [place], [address] SP.GR. DIPSTX Normal 1.002-1.030 [facility] Comment on above: Order Comment: Urine , Random Result Comment: UAC ORDERED Performed By: #### L 100.0200, L500.2900, L400.0100 ####[facility] [address] [place], [address] UR Preservative Normal [facility] Comment on above: Order Comment: Urine , Random Result Comment: UAC ORDERED Performed By: #### L 100.0200, L500.2900, L400.0100 ####[facility] [address] [place], [address] UROBILI Normal Normal [facility] Comment on above: Order Comment: Urine , Random Result Comment: UAC ORDERED Performed By: #### L 100.0200, L500.2900, L400.0100 ####[facility] [address] [place], [place], [address] Urine albumin measurement wi detection limit of 20 mg/L or less (mass/volume)Ordered By: Rajat Fast on 05-02-2025 Albumin DL <= 20 mg/L (U) [Mass/Vol] < 12.0 mg/L NO RANGE EST. [facility] Urine clarityOrdered By: Emelia ohuston Fast on 05-02-2025 Clarity (U) Clear Clear [facility] Urine color determinationOrd ered By: Rajat Fast on 05-02-2025 Color (U) Yellow Yellow [facility] Urine glucose detectionOrder ed By: Rajat Fast on 05-02-2025 Glucose Ql (U) Normal mg/dl Normal [facility] Urine leukocyte esterase det ection by dipstickOrdered By: Rajat on 05-02-2025 Leukocyte esterase Test strip Ql (U) Negative Negative [facility] Urine pHOrdered By: Rajat Carver st on 05-02-2025 pH (U) 6.0 [pH] 5.0 - 8.0 [facility] Urine sediment bacteria coun t by microscopy (number/high power field)Ordered By: Rajat on 05-02-2025 Bacteria LM.HPF (Urine sed) [#/Area] 0 /[HPF] None Seen [facility] Urine specific gravity measu rementOrdered By: Rajat Fast on 05-02-2025 Specific gravity (U) [Rel density] 1.010 1.002-1.030 [facility] Urine urobilinogen measureme ntOrdered By: Rajat Fast on 05-02-2025 Urobilinogen Ql (U) Normal mg/dl Normal [facility] Vitamin D,25 Hydroxyon 05-02 Vitamin D 25-OH 55.2 ng/mL Normal 30-100 [facility] Comment on above: Result Comment: Charo min D Status Deficiency: <20 ng/mL (50nmol/L) Insufficiency: 20-30 ng/mL (50-75 nmol/L) Sufficiency: 30-100 ng/mL (75-250 nmol/L) Toxicity: >100 ng/mL (>250 nmol/L) Performed By: #### L 502.0250, L506.1001, L400.0001 ####[facility] [address] [place], [place], [address] White blood cell (WBC) count Ordered By: HEALTH ASSESSMENT on 05-02-2025 WBC (Bld) [#/Vol] 4.4 10*3/uL 4.4-11.0 [facility] White blood cell countOrdere d By: Rajat Fast on 05-02-2025 White blood cell count 0 SEEN /hpf 0-5 [facility] Laboratory - Microbiology an d Antimicrobial susceptibilityOrdered By: Juan Miller on 04-16-2025 SARS-CoV-2 (COVID-19) RNA HUSSAIN+probe Ql (Unsp spec) Not detected [facility] No Panel InformationOrdered By: Juan Miller on 04-16-2025 POC Nasal Swab Influenza A,B Not detected [facility] POC Nasal Swab RSV Not detected [facility] Urgent Care Visit Reporton 0 04-16-2025 Urgent Care Visit Report [facility] [address], [address] [place], [place] [address] OFFICE VISIT Date of Service: 04/16/25 MR#: [id number] Acct: [id number] Name: ERIN DYSON APOLLO Rep #: [id number] : 1955 Provider: ANDRÉS Hernandez Age/Sex: 69/F Location: [facility] Status: Signed Intake Vital Signs 01/29/25 11:44 05/20/25 06:36 Height 5 ft 5 in BP [...] DAILY 03/11/23 04/16/25 History mg tablet omega 8-irh-nue-fish oil 60 mg-90 1 cap PO DAILY [...] feeling sick and is concern for Covid. 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 No kyml-nyn-xcrkuok taken to assist, though Amoxicillin prescribed by [...] nose normal, nares normal, septum normal and riqwg-zn-vrsark clear nasal discharge Face and sinus: normal [...] exam A (more content not included)... Normal [facility] Upper Ext Joint Only(Routine )on 03-13-2025 Upper Ext Joint Only(Routine) [facility] Imaging Services [address] [place], [place] [id number] Upper Ext Joint Only(Routine) MR#: [id number] Acct: [id number] Name: ERIN DYSON Rep #: [id number] : 1955 F 69 From: [place] [facility] PCP: Dr. Rajat Norton, Status: DEP CLI Study: Upper Ext Joint Only(Routine) Date of Exam: 0 03/13/25 Exam# [id number] Ordering Dr: Rajat Norton DO EXAM: MRI [...] Location: [facility] CC: Dr. 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 [facility] CNOVon 02-12-2025 CNOV Office Visit (NEMOWS ) ERIN DYSON ([id number]) 1955 F Date Time Provider Department 02/12/25 3:45 PM DANNI GURROLA During your visit today, we recorded the following information about you: Pulse Blood pressure 62/minute 146/91 Nohemy Dudley LPN 02/12/2025 4:07 PM Signed Danni Gurrola PA-C 02/12/2025 4:07 PM Signed [facility] Name: Erin Dyson Age: [age] year old Gender: female Primary Care Provider: Rajat Norton DO Assessment/Plan: 02/12/2025 - General NeurologyDanni PA-C [...] states she had an EKG done at [facility] but is unsure how long ago. There [...] Date NONE (more content not included)... Normal [facility] Urgent Care Visit Reporton 0 01-29-2025 Urgent Care Visit Report [facility] [address], [address] [place] [address] OFFICE VISIT Date of Service: 01/29/25 MR#: [id number] Acct: [id number] Name: ERIN DYSON APOLLO Rep #: [id number] : 1955 Provider: ANDRÉS Hernandez Age/Sex: 69/F Location: [facility] Status: Signed with Addenda ADDENDUM by Radha Cai on 01/29/25 at 1230 Office Procedure Documentation entered by Radha Cai 01/29/25 12:30: Immunizations Boostrix Tdap 2.5 Lf unit-8 mcg-5 Lf/0.5 mL intramuscular syringe Performing Provider: Juan M Wyles PA, PA Performing Location[facility] Administered by: Radha Cai on 01/29/25 12:29 Dose Route Admin Location Dispensed Lot Number Expiration Date NDC Man ufacturer 0.5 mL IM Right Deltoid 0.5 mL [id number] 12/22/26 36804-848-15 [employer] VIS Given Date VIS Provided VIS Publication [...] SCRATCH Chief Complaint: left hand cat scratch Tribunal Member Required: No Accompanied by: Self Is patient [...] DAILY 03/11/23 01/29/25 History mg tablet omega 7-pri-pbw-fish oil 60 mg-90 1 cap PO DAILY 03/11/23 01/29/25 History mg-500 mg capsule (Fish Oil) Have you fallen in the past year?: No PFSH Medical History (Updated 01/29/25 @ 12:25 by Juan BOWEN PA) Cat scratch of left hand Easy [...] at home: Yes additional social history: - Olcm-Tpzu-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 Normal [facility] 01-24-2025 [facility] Telephone (NEMGLADIS) KARISERIN TAMEZ ([id number]) 1955 F Date Time Provider Department 01/24/25 [...] Fully Assessed Reason for Visit: Patient Question [5467] Patient Update [5574] Prescriptions as of 01/29/2025 - memantine (NAMENDA) [...] Status:Closed by NOHEMY DUDLEY on 01/24/25 Normal [facility] [id number]-SD-Msklvcv DOrdered By: Frances Norton on 01-17-2025 Vitamin D 25-Hydroxy 54.9 ng/mL [facility] Comment on above: Vitamin D 25(OH) Sta tus Range Deficiency <20 ng/mL (50nmol/L) Insufficiency 20 - 30 ng/mL (50 - 75 nmol/L) Sufficiency 30 - 100 ng/mL (75 - 250 nmol/L) Toxicity >100 ng/mL (>250 nmol/L) Absolute lymphocyte countOrd ered By: Rajat on 01-17-2025 Lymphocytes Auto (Unsp spec) [#/Vol] 1.18 10*3/uL 0.83-4.51 [facility] Absolute neutrophil countOrd ered By: on 01-17-2025 Neutrophils (Bld) [#/Vol] 2.9 10*3/uL 2.0-7.7 [facility] Albumin to globulin ratioOrd ered By: on 01-17-2025 Albumin/Globulin [Mass ratio] 1.1 {ratio} 0.9-2.4 [facility] Automated lymphocyte count a s percentage of total leukocytesOrdered By: Rajat Fast on 01-17-2025 Lymphocytes/100 WBC Auto (Unsp spec) 25.7 % [facility] Basophil percentageOrdered B y: Rajat Fast on 01-17-2025 Basophils/100 WBC (Bld) 0.9 % 0-1 [facility] Bilirubin, totalOrdered By: Rajat Fast on 01-17-2025 Bilirubin [Mass/Vol] 0.70 mg/dL 0.20-1.00 [facility] Comment on above: For patients on eltr ombopag therapy, use of Dimension [place] TBIL is not recommended. Blood urea nitrogen (BUN)/cr eatinine ratioOrdered By: Rajat Fast on 01-17-2025 Urea nitrogen/Creatinine [Mass ratio] 13.8 mg/mg - [facility] CBC W/Diff, Automatedon 12-30 Absolute Lymph 1.18 X10 3/uL Normal 0.83-4.51 [facility] Comment on above: Performed By: #### L 500.4100, L100.0100, L500.4050, L503.0105, L506.1000, L506.0250 ####[facility] [address] [place], [address] Absolute Neut 2.9 X10 3/uL Normal 2.0-7.7 [facility] Comment on above: Performed By: #### L 500.4100, L100.0100, L500.4050, L503.0105, L506.1000, L506.0250 ####[facility] [address] [place], [address] Basophils/100 WBC (Bld) 0.9 % Normal 0-1 [facility] Comment on above: Performed By: #### L 500.4100, L100.0100, L500.4050, L503.0105, L506.1000, L506.0250 ####[facility] [address] [place], [address] Eosinophils/100 WBC (Bld) 3.3 % Normal 0-5 [facility] Comment on above: Performed By: #### L 500.4100, L100.0100, L500.4050, L503.0105, L506.1000, L506.0250 ####[facility] [address] [place], [address] Erythrocyte distribution width (RBC) [Ratio] 13.2 % Normal 11.6-14.6 [facility] Comment on above: Performed By: #### L 500.4100, L100.0100, L500.4050, L503.0105, L506.1000, L506.0250 ####[facility] [address] [place], [address] Hematocrit (Bld) [Volume fraction] 41.6 % Normal 37-47 [facility] Comment on above: Performed By: #### L 500.4100, L100.0100, L500.4050, L503.0105, L506.1000, L506.0250 ####[facility] [address] [place], [address] Hemoglobin (Bld) [Mass/Vol] 13.8 g/dL Normal 12.0-15.0 [facility] Comment on above: Performed By: #### L 500.4100, L100.0100, L500.4050, L503.0105, L506.1000, L506.0250 ####[facility] [address] [place], [address] IG% 0.200 Normal 0.0-0.9 [facility] Comment on above: Result Comment: IG% - Immature Granulocytes (promyelocytes, myelocytes and metamyelocytes) > 1% indicates that a LEFT SHIFT is Present. Performed By: #### L 500.4100, L100.0100, L500.4050, L503.0105, L506.1000, L506.0250 ####[facility] [address] [place], [address] Lymphocytes/100 WBC (Bld) 25.7 % Normal 19-41 [facility] Comment on above: Performed By: #### L 500.4100, L100.0100, L500.4050, L503.0105, L506.1000, L506.0250 ####[facility] [address] [place], [address] MCH (RBC) [Entitic mass] 31.2 pg Normal 27.0-32.0 [facility] Comment on above: Performed By: #### L 500.4100, L100.0100, L500.4050, L503.0105, L506.1000, L506.0250 ####[facility] [address] [place], [address] MCHC (RBC) [Mass/Vol] 33.2 g/dL Normal 32-36 [facility] Comment on above: Performed By: #### L 500.4100, L100.0100, L500.4050, L503.0105, L506.1000, L506.0250 ####[facility] [address] [place], [address] MCV (RBC) [Entitic vol] 93.9 fL Normal 81-99 [facility] Comment on above: Performed By: #### L 500.4100, L100.0100, L500.4050, L503.0105, L506.1000, L506.0250 ####[facility] [address] [place], [address] Monocytes/100 WBC (Bld) 6.8 % Normal 0-10 [facility] Comment on above: Performed By: #### L 500.4100, L100.0100, L500.4050, L503.0105, L506.1000, L506.0250 ####[facility] [address] [place], [address] Neutrophils/100 WBC (Bld) 63.1 % Normal 47-70 [facility] Comment on above: Performed By: #### L 500.4100, L100.0100, L500.4050, L503.0105, L506.1000, L506.0250 ####[facility] [address] [place], [address] Nucleated RBC (Bld) [#/Vol] 0 10*3/uL Normal 0-5 [facility] Comment on above: Performed By: #### L 500.4100, L100.0100, L500.4050, L503.0105, L506.1000, L506.0250 ####[facility] [address] [place], [address] Platelet mean volume (Bld) [Entitic vol] 8.8 fL Normal 6.2-12.0 [facility] Comment on above: Performed By: #### L 500.4100, L100.0100, L500.4050, L503.0105, L506.1000, L506.0250 ####[facility] [address] [place], [address] Platelets (Bld) [#/Vol] 197 10*3/uL Normal 150-450 [facility] Comment on above: Performed By: #### L 500.4100, L100.0100, L500.4050, L503.0105, L506.1000, L506.0250 ####[facility] [address] [place], [address] RBC (Bld) [#/Vol] 4.43 10*6/uL Normal 4.2-5.4 [facility] Comment on above: Performed By: #### L 500.4100, L100.0100, L500.4050, L503.0105, L506.1000, L506.0250 ####[facility] [address] [place], [address] RDW SD 45.5 fl High 35.1-43.9 [facility] Comment on above: Performed By: #### L 500.4100, L100.0100, L500.4050, L503.0105, L506.1000, L506.0250 ####[facility] [address] [place], [address] WBC (Bld) [#/Vol] 4.6 10*3/uL Normal 4.4-11.0 [facility] Comment on above: Performed By: #### L 500.4100, L100.0100, L500.4050, L503.0105, L506.1000, L506.0250 ####[facility] [address] [place], [address] Carbon dioxide measurementOr dered By: Rajat Fast on 01-17-2025 CO2 [Moles/Vol] 28.0 mmol/L 21.0-32.0 [facility] Chloride measurementOrdered By: Rajat Fast on 01-17-2025 Chloride [Moles/Vol] 107 mmol/L 98-107 [facility] Comprehensive Metabolic Prof ilon 01-17-2025 Albumin [Mass/Vol] 3.8 g/dL Normal 3.2-5.0 [facility] Comment on above: Performed By: #### L 500.4100, L100.0100, L500.4050, L503.0105, L506.1000, L506.0250 ####[facility] [address] [place], [address] Albumin/Globulin [Mass ratio] 1.1 {ratio} Normal 0.9-2.4 [facility] Comment on above: Performed By: #### L 500.4100, L100.0100, L500.4050, L503.0105, L506.1000, L506.0250 ####[facility] [address] [place], [address] ALK P 53 U/L Normal 45-117 [facility] Comment on above: Performed By: #### L 500.4100, L100.0100, L500.4050, L503.0105, L506.1000, L506.0250 ####[facility] [address] [place], [address] ALT [Catalytic activity/Vol] 23 U/L Normal 13-56 [facility] Comment on above: Performed By: #### L 500.4100, L100.0100, L500.4050, L503.0105, L506.1000, L506.0250 ####[facility] [address] [place], [address] AST [Catalytic activity/Vol] 25 U/L Normal 15-37 [facility] Comment on above: Performed By: #### L 500.4100, L100.0100, L500.4050, L503.0105, L506.1000, L506.0250 ####[facility] [address] [place], [address] Bilirubin [Mass/Vol] 0.70 mg/dL Normal 0.20-1.00 [facility] Comment on above: Result Comment: For patients on eltrombopag therapy, use of Dimension [place] TBIL is not recommended. Performed By: #### L 500.4100, L100.0100, L500.4050, L503.0105, L506.1000, L506.0250 ####[facility] [address] [place], [address] BUN/CRE 13.8 RATIO Normal 10-20 [facility] Comment on above: Performed By: #### L 500.4100, L100.0100, L500.4050, L503.0105, L506.1000, L506.0250 ####[facility] [address] [place], [address] CA,Total 9.9 mg/dL Normal 8.5-10.1 [facility] Comment on above: Performed By: #### L 500.4100, L100.0100, L500.4050, L503.0105, L506.1000, L506.0250 ####[facility] [address] [place], [address] Chloride [Moles/Vol] 107 mmol/L Normal 98-107 [facility] Comment on above: Performed By: #### L 500.4100, L100.0100, L500.4050, L503.0105, L506.1000, L506.0250 ####[facility] [address] [place], [address] CO2 [Moles/Vol] 28.0 mmol/L Normal 21.0-32.0 [facility] Comment on above: Performed By: #### L 500.4100, L100.0100, L500.4050, L503.0105, L506.1000, L506.0250 ####[facility] [address] [place], [address] Creatinine [Mass/Vol] 0.80 mg/dL Normal 0.55-1.02 [facility] Comment on above: Result Comment: The validity of the calculated GFR GFRAA in patients over 70 years has not been determined. Clinical correlation is essential. Performed By: #### L 500.4100, L100.0100, L500.4050, L503.0105, L506.1000, L506.0250 ####[facility] [address] [place], [address] EST GFR - AA 92 mL/min Normal >60 [facility] Comment on above: Result Comment: Afri can [place] GFR Calc Performed By: #### L 500.4100, L100.0100, L500.4050, L503.0105, L506.1000, L506.0250 ####[facility] [address] [place], [address] GAP 5 Normal 5-15 [facility] Comment on above: Performed By: #### L 500.4100, L100.0100, L500.4050, L503.0105, L506.1000, L506.0250 ####[facility] [address] [place], [address] GFR/1.73 sq M.predicted among non-blacks MDRD (S/P/Bld) [Vol rate/Area] 76 mL/min/{1.73_m2} Normal >60 [facility] Comment on above: Result Comment: Non- GFR Calc Performed By: #### L 500.4100, L100.0100, L500.4050, L503.0105, L506.1000, L506.0250 ####[facility] [address] [place], [address] Globulin (S) [Mass/Vol] 3.4 g/dL Normal 2.2-4.2 [facility] Comment on above: Performed By: #### L 500.4100, L100.0100, L500.4050, L503.0105, L506.1000, L506.0250 ####[facility] [address] [place], [address] Glucose [Mass/Vol] 93 mg/dL Normal 74-106 [facility] Comment on above: Performed By: #### L 500.4100, L100.0100, L500.4050, L503.0105, L506.1000, L506.0250 ####[facility] [address] [place], [address] Potassium [Moles/Vol] 4.3 mmol/L Normal 3.5-5.1 [facility] Comment on above: Performed By: #### L 500.4100, L100.0100, L500.4050, L503.0105, L506.1000, L506.0250 ####[facility] [address] [place], [address] Sodium [Moles/Vol] 140 mmol/L Normal 136-145 [facility] Comment on above: Performed By: #### L 500.4100, L100.0100, L500.4050, L503.0105, L506.1000, L506.0250 ####[facility] [address] [place], [address] T PROT 7.2 g/dL Normal 6.4-8.2 [facility] Comment on above: Performed By: #### L 500.4100, L100.0100, L500.4050, L503.0105, L506.1000, L506.0250 ####[facility] [address] [place], [address] Urea nitrogen [Mass/Vol] 11 mg/dL Normal 7-18 [facility] Comment on above: Performed By: #### L 500.4100, L100.0100, L500.4050, L503.0105, L506.1000, L506.0250 ####[facility] [address] [place], [address] Eosinophil percentageOrdered By: Rajat Fast on 01-17-2025 Eosinophils/100 WBC (Bld) 3.3 % 0-5 [facility] Erythrocyte distribution wid th (RBC) [Ratio]Ordered By: Rajat Fast on 01-17-2025 Erythrocyte distribution width (RBC) [Entitic vol] 45.5 fL High 35.1-43.9 [facility] Erythrocyte distribution wid th ratioOrdered By: Rajat Fast on 01-17-2025 Erythrocyte distribution width (RBC) [Ratio] 13.2 % 11.6-14.6 [facility] Erythrocyte distribution wid th standard deviationOrdered By: Rajat Fast on 01-17-2025 Erythrocyte distribution width (RBC) [Ratio] 45.5 fl High 35.1-43.9 [facility] Estimated glomerular filtrat ion rate (GFR) AmericanOrdered By: Rajat Fast on 01-17-2025 Estimated GFR (MDRD) Amer 92 mL/min >60 [facility] Comment on above: GFR Calc Folates, (Folic Acid)on 12-30 FOLATES 19.10 ng/mL Normal 3.1-55.4 [facility] Comment on above: Order Comment: N Performed By: #### L 500.4100, L100.0100, L500.4050, L503.0105, L506.1000, L506.0250 ####[facility] [address] [place], [address] Folic acid measurementOrdere d By: Rajat Fast on 01-17-2025 Folate 19.10 ng/mL 3.1-55.4 [facility] Glomerular filtration rate ( GFR) estimationOrdered By: Rajat Fast on 01-17-2025 Estimated GFR (MDRD) Non-Af Amer 76 mL/min >60 [facility] Comment on above: Non- GFR Calc GFR/1.73 sq M.predicted among non-blacks MDRD (S/P/Bld) [Vol rate/Area] 76 mL/min/{1.73_m2} >60 [facility] Comment on above: Non- GFR Calc Glucose measurementOrdered B y: Rajat Fast on 01-17-2025 Glucose [Mass/Vol] 93 mg/dL 74-106 [facility] Hematocrit Auto (Bld) [Volum e fraction]Ordered By: Rajat Fast on 01-17-2025 Hematocrit (Bld) [Volume fraction] 41.6 % 37-47 [facility] Hemoglobin measurementOrdere d By: Rajat Fast on 01-17-2025 Hemoglobin (Bld) [Mass/Vol] 13.8 g/dL 12.0-15.0 [facility] High density lipoprotein (HD L) measurementOrdered By: Rajat Fast on 01-17-2025 Cholesterol in HDL [Mass/Vol] 93 mg/dL >40 [facility] Comment on above: The drugs N-Acetylcy steine and Metamizole may falsely depress this assay. Reference Range HDL <40 mg/dL Low HDL Cholesterol HDL >or= 60 mg/dL High HDL Cholesterol Immature granulocytes/100 WB C Auto (Bld)Ordered By: Rajat Fast on 01-17-2025 Immature granulocytes/100 WBC (Bld) 0.200 % 0.0-0.9 [facility] Comment on above: IG% - Immature Granu locytes (promyelocytes, myelocytes and metamyelocytes) > 1% indicates that a LEFT SHIFT is Present. Laboratory - Chemistry and C hemistry - challengeOrdered By: Rajat Fast on 01-17-2025 AST [Catalytic activity/Vol] 25 U/L 15-37 [facility] Lipid Profileon 01-17-2025 Cholesterol [Mass/Vol] 211 mg/dL High [address] [facility] Comment on above: Result Comment: <200 mg/dL Desirable 200-240 mg/dL Borderline >240 mg/dL High Risk Performed By: #### L 500.4100, L100.0100, L500.4050, L503.0105, L506.1000, L506.0250 ####[facility] [address] [place], [address] Cholesterol in HDL [Mass/Vol] 93 mg/dL Normal [facility] Comment on above: Result Comment: The drugs N-Acetylcysteine and Metamizole may falsely depress this assay. Reference Range HDL <40 mg/dL Low HDL Cholesterol HDL >or= 60 mg/dL High HDL Cholesterol Performed By: #### L 500.4100, L100.0100, L500.4050, L503.0105, L506.1000, L506.0250 ####[facility] [address] [place], [address] Cholesterol in LDL [Mass/Vol] 106 mg/dL Normal 0-130 [facility] Comment on above: Performed By: #### L 500.4100, L100.0100, L500.4050, L503.0105, L506.1000, L506.0250 ####[facility] [address] [place], [address] Cholesterol in VLDL [Mass/Vol] 12 mg/dL Normal 5-40 [facility] Comment on above: Performed By: #### L 500.4100, L100.0100, L500.4050, L503.0105, L506.1000, L506.0250 ####[facility] [address] [place], [place], [id number] Triglyceride [Mass/Vol] 60 mg/dL Normal [facility] Comment on above: Result Comment: The drugs N-Acetylcysteine and Metamizole may falsely depress this assay. Serum Triglycerides Reference Interval Normal <150 mg/dL Borderline high 150 - 199 mg/dL High 200 - 499 mg/dL Very High > or = 500 mg/dL Performed By: #### L 500.4100, L100.0100, L500.4050, L503.0105, L506.1000, L506.0250 ####[facility] [address] [place], [address] Low density lipoprotein (LDL ) cholesterol measurementOrdered By: Rajat Fast on 01-17-2025 Cholesterol in LDL [Mass/Vol] 106 mg/dL 0-130 [facility] Lymphocytes Auto (Unsp spec) [#/Vol]Ordered By: Rajat Fast on 01-17-2025 Lymphocytes (Bld) [#/Vol] 1.18 10*3/uL 0.83-4.51 [facility] Lymphocytes/100 WBC Auto (Un sp spec)Ordered By: Rajat Fast on 01-17-2025 Lymphocytes/100 WBC (Bld) 25.7 % 19-41 [facility] MCV (mean corpuscular volume ) determinationOrdered By: Rajat Fast on 01-17-2025 MCV (RBC) [Entitic vol] 93.9 fL 81-99 [facility] Mean corpuscular hemoglobin (MCH) determinationOrdered By: Rajat Fast on 01-17-2025 MCH (RBC) [Entitic mass] 31.2 pg 27.0-32.0 [facility] Mean corpuscular hemoglobin concentration (MCHC) determinationOrdered By: Rajat Fast on 01-17-2025 MCHC (RBC) [Mass/Vol] 33.2 g/dL 32-36 [facility] Mean platelet volume determi nationOrdered By: Rajat Fast on 01-17-2025 Platelet mean volume (Bld) [Entitic vol] 8.8 fL 6.2-12.0 [facility] Monocyte percentageOrdered B y: Rajat Fast on 01-17-2025 Monocytes/100 WBC (Bld) 6.8 % 0-10 [facility] Neutrophil percentageOrdered By: Rajat Fast on 01-17-2025 Neutrophils/100 WBC (Bld) 63.1 % 47-70 [facility] Nucleated red blood cell per centageOrdered By: Rajat Fast on 01-17-2025 Nucleated RBC/100 WBC (Bld) [Ratio] 0 % 0-5 [facility] Platelet countOrdered By: De sonny Fast on 01-17-2025 Platelets (Bld) [#/Vol] 197 10*3/uL 150-450 [facility] Potassium measurementOrdered By: Rajat Fast on 01-17-2025 Potassium [Moles/Vol] 4.3 mmol/L 3.5-5.1 [facility] RBC Auto (Bld) [#/Vol]Ordere d By: Rajat Fast on 01-17-2025 RBC (Bld) [#/Vol] 4.43 10*6/uL 4.2-5.4 [facility] Serum anion gap measurementO rdered By: Rajat Fast on 01-17-2025 Anion gap [Moles/Vol] 5 mmol/L 5-15 [facility] Serum globulin measurementOr dered By: Rajat Fast on 01-17-2025 Globulin (S) [Mass/Vol] 3.4 g/dL 2.2-4.2 [facility] Serum or plasma alanine teresa otransferase (ALT) measurementOrdered By: Rajat Fast on 01-17-2025 ALT [Catalytic activity/Vol] 23 U/L 13-56 [facility] Serum or plasma albumin peggy urement (mass/volume)Ordered By: Rajat Fast on 01-17-2025 Albumin [Mass/Vol] 3.8 g/dL 3.2-5.0 [facility] Serum or plasma alkaline debbie sphatase measurementOrdered By: Rajat Fast on 01-17-2025 ALP [Catalytic activity/Vol] 53 U/L 45-117 [facility] Serum or plasma calcium peggy urement (mass/volume)Ordered By: Rajat Fast on 01-17-2025 Calcium [Mass/Vol] 9.9 mg/dL 8.5-10.1 [facility] Serum or plasma cholesterol measurement (mass/volume)Ordered By: Arjat Fast on 01-17-2025 Cholesterol [Mass/Vol] 211 mg/dL High <[address] [facility] Comment on above: <200 mg/dL Desirable 200-240 mg/dL Borderline >240 mg/dL High Risk Serum or plasma creatinine m easurement (mass/volume)Ordered By: on 01-17-2025 Creatinine [Mass/Vol] 0.80 mg/dL 0.55-1.02 [facility] Comment on above: The validity of the calculated GFR & GFRAA in patients over 70 years has not been determined. Clinical correlation is essential. Serum or plasma urea nitroge n measurement (mass/volume)Ordered By: on 01-17-2025 Urea nitrogen [Mass/Vol] 11 mg/dL 7-18 [facility] Sodium levelOrdered By: a Fast on 01-17-2025 Sodium [Moles/Vol] 140 mmol/L 136-145 [facility] Total proteinOrdered By: Emelia ra on 01-17-2025 Protein [Mass/Vol] 7.2 g/dL 6.4-8.2 [facility] Triglycerides measurementOrd ered By: on 01-17-2025 Triglyceride [Mass/Vol] 60 mg/dL <199 [facility] Comment on above: The drugs N-Acetylcy steine and Metamizole may falsely depress this assay.Serum Triglycerides Reference Interval Normal <150 mg/dL Borderline high 150 - 199 mg/dL High 200 - 499 mg/dL Very High > or = 500 mg/dL Very low density lipoprotein (VLDL) cholesterol measurementOrdered By: Rajat Fast on 01-17-2025 Very low density lipoprotein (VLDL) cholesterol measurement 12 mg/dL 5-40 [facility] VLDL Cholesterol 12 mg/dL 5-40 [facility] Vitamin B12on 01-17-2025 Cobalamin (Vitamin B12) [Mass/Vol] 702 pg/mL Normal 211-911 [facility] Comment on above: Performed By: #### L 500.4100, L100.0100, L500.4050, L503.0105, L506.1000, L506.0250 ####[facility] [address] [place], [place], [id number] Vitamin B12 measurementOrder ed By: Rajat Norton on 01-17-2025 Cobalamin (Vitamin B12) [Mass/Vol] 702 pg/mL 211-911 [facility] Vitamin D,25 Hydroxyon 01-17 Vitamin D 25-OH 54.9 ng/mL Normal [facility] Comment on above: Result Comment: Charo min D 25(OH) Status Range Deficiency <20 ng/mL (50nmol/L) Insufficiency 20 - 30 ng/mL (50 - 75 nmol/L) Sufficiency 30 - 100 ng/mL (75 - 250 nmol/L) Toxicity >100 ng/mL (>250 nmol/L) Performed By: #### L 500.4100, L100.0100, L500.4050, L503.0105, L506.1000, L506.0250 ####[facility] [address] [place], [place], [id number] White blood cell (WBC) count Ordered By: Rajat Norton on 01-17-2025 WBC (Bld) [#/Vol] 4.6 10*3/uL 4.4-11.0 [facility] 12-25-2024 [facility] ([facility]) ERIN DYSON ([id number]) 1955 F Date Time Provider Department 12/25/24 OZZIE ROBERTSON JR [facility] During your visit today, we recorded [...] by NOHE[facility] DUD[facility]) ERIN DYSON ([id number]) 1955 F Date Time Provider Department 11/23/24 [...] from cardiac standpoint. MD Jaswant Vera Samaria, AUBREE 11/23/2024 3:29 PM Signed Patient has not had an EKG done recently, would like to have order placed and patient will get EKG done through [facility]. Patient would also like to know the difference between medications listed below, pt was wondering why her sister would experience better results then she is. Please review and advise. Nohemy Dudely LPN November 23, 2024 3:28 PM Ozzie Robertson Jr., MD 11/23/2024 6:28 PM Signed Please schedule pt follow up with Mason BOWEN to review meds and discuss further treatment options. Will order ECG. MD Sarika Vera Sherrie 11/26/2024 8:50 AM Signed Spoke with nurse [place] and current EKG order in [facility] is not correct please delete and add [...] Fully Assessed Reason for Visit: Patient Question [5017] Primary Visit Diagnosis:Dementia without behavioral disturbance, psychotic disturbance, mood disturbance, or anxiety, unspecified dementia severity, unspecified dementia type (HCC) [F03.90] Other Visit Diagnosis:At high risk for adverse medication event [Z91.89] Order(s):ECG INTERPRETATION AND REPORT ONLY [[id number]] Order #: [id number]: 1 ECG INTERPRETATION AND REPORT ONLY [[id number]] Order #: [id number]: 1 ECG COMPLETE [ECG01] Order #: [id number] FUTURE Prescriptions as of 11/27/2024 - memantine [...] Encounter Status:Closed by OZZIE ROBERTSON on 11/23/24 [facility] 11-02-2024 [facility] Office Visit ([facility] ) ERIN DYSON ([id number]) 1955 F Date Time Provider Department 11/02/24 [...] prior history, (more content not included)... Normal [facility] Office Visit Reporton 2023 Office Visit Report [facility] [address] [place] [address] OFFICE VISIT Date of Service: 12/20/23 MR#: [id number] Acct: [id number] Patient: ERIN DYSON Rep #: [id number] : 1955 Provider: ANDRÉS Hernandez Age/Sex: 69/F Location: [facility] [place] Status: Signed Employer Purchased Covid Test Note: Patient here today for Covid Testing, requested by their Employer. Assessment and Plan Assessment and Plan Orders: Orders POC Cepheid Covid, FluAB, RSV 12/20/23 R09.89 - Other specified symptoms and signs involving the circulatory and respiratory systems 10/08/24 1756 Date Juan BOWEN Cosigner Signature: Date (if applicable) CC: Normal [facility] CBC W/Diff, Automatedon 10-2 Absolute Lymph 1.40 X10 3/uL Normal 0.83-4.51 [facility] Comment on above: Order Comment: CANCE L WAS EMPH COVERS! Performed By: #### L 100.0100, L500.4100, L503.0105, L506.0250, L506.1000, L500.4050 ####[facility] [address] [place], [id number] Absolute Neut 2.6 X10 3/uL Normal 2.0-7.7 [facility] Comment on above: Order Comment: CANCE L WAS EMPH COVERS! Performed By: #### L 100.0100, L500.4100, L503.0105, L506.0250, L506.1000, L500.4050 ####[facility] [address] [place], [address] Basophils/100 WBC (Bld) 0.9 % Normal 0-1 [facility] Comment on above: Order Comment: CANCE L WAS EMPH COVERS! Performed By: #### L 100.0100, L500.4100, L503.0105, L506.0250, L506.1000, L500.4050 ####[facility] [address] [place], [address] Eosinophils/100 WBC (Bld) 3.6 % Normal 0-5 [facility] Comment on above: Order Comment: CANCE L WAS EMPH COVERS! Performed By: #### L 100.0100, L500.4100, L503.0105, L506.0250, L506.1000, L500.4050 ####[facility] [address] [place], [address] Erythrocyte distribution width (RBC) [Ratio] 12.5 % Normal 11.6-14.6 [facility] Comment on above: Order Comment: CANCE L WAS EMPH COVERS! Performed By: #### L 100.0100, L500.4100, L503.0105, L506.0250, L506.1000, L500.4050 ####[facility] [address] [place], [address] Hematocrit (Bld) [Volume fraction] 41.2 % Normal 37-47 [facility] Comment on above: Order Comment: CANCE L WAS EMPH COVERS! Performed By: #### L 100.0100, L500.4100, L503.0105, L506.0250, L506.1000, L500.4050 ####[facility] [address] [place], [address] Hemoglobin (Bld) [Mass/Vol] 13.8 g/dL Normal 12.0-15.0 [facility] Comment on above: Order Comment: CANCE L WAS EMPH COVERS! Performed By: #### L 100.0100, L500.4100, L503.0105, L506.0250, L506.1000, L500.4050 ####[facility] [address] [place], [address] IG% 0.200 Normal 0.0-0.9 [facility] Comment on above: Order Comment: CANCE L WAS EMPH COVERS! Result Comment: IG% - Immature Granulocytes (promyelocytes, myelocytes and metamyelocytes) > 1% indicates that a LEFT SHIFT is Present. Performed By: #### L 100.0100, L500.4100, L503.0105, L506.0250, L506.1000, L500.4050 ####[facility] [address] [place], [address] Lymphocytes/100 WBC (Bld) 31.5 % Normal 19-41 [facility] Comment on above: Order Comment: CANCE L WAS EMPH COVERS! Performed By: #### L 100.0100, L500.4100, L503.0105, L506.0250, L506.1000, L500.4050 ####[facility] [address] [place], [address] MCH (RBC) [Entitic mass] 31.0 pg Normal 27.0-32.0 [facility] Comment on above: Order Comment: CANCE L WAS EMPH COVERS! Performed By: #### L 100.0100, L500.4100, L503.0105, L506.0250, L506.1000, L500.4050 ####[facility] [address] [place], [address] MCHC (RBC) [Mass/Vol] 33.5 g/dL Normal 32-36 [facility] Comment on above: Order Comment: CANCE L WAS EMPH COVERS! Performed By: #### L 100.0100, L500.4100, L503.0105, L506.0250, L506.1000, L500.4050 ####[facility] [address] [place], [address] MCV (RBC) [Entitic vol] 92.6 fL Normal 81-99 [facility] Comment on above: Order Comment: CANCE L WAS EMPH COVERS! Performed By: #### L 100.0100, L500.4100, L503.0105, L506.0250, L506.1000, L500.4050 ####[facility] [address] [place], [address] Monocytes/100 WBC (Bld) 6.3 % Normal 0-10 [facility] Comment on above: Order Comment: CANCE L WAS EMPH COVERS! Performed By: #### L 100.0100, L500.4100, L503.0105, L506.0250, L506.1000, L500.4050 ####[facility] [address] [place], [address] Neutrophils/100 WBC (Bld) 57.5 % Normal 47-70 [facility] Comment on above: Order Comment: CANCE L WAS EMPH COVERS! Performed By: #### L 100.0100, L500.4100, L503.0105, L506.0250, L506.1000, L500.4050 ####[facility] [address] [place], [address] Nucleated RBC (Bld) [#/Vol] 0 10*3/uL Normal 0-5 [facility] Comment on above: Order Comment: CANCE L WAS EMPH COVERS! Performed By: #### L 100.0100, L500.4100, L503.0105, L506.0250, L506.1000, L500.4050 ####[facility] [address] [place], [address] Platelet mean volume (Bld) [Entitic vol] 8.9 fL Normal 6.2-12.0 [facility] Comment on above: Order Comment: CANCE L WAS EMPH COVERS! Performed By: #### L 100.0100, L500.4100, L503.0105, L506.0250, L506.1000, L500.4050 ####[facility] [address] [place], [address] Platelets (Bld) [#/Vol] 204 10*3/uL Normal 150-450 [facility] Comment on above: Order Comment: CANCE L WAS EMPH COVERS! Performed By: #### L 100.0100, L500.4100, L503.0105, L506.0250, L506.1000, L500.4050 ####[facility] [address] [place], [address] RBC (Bld) [#/Vol] 4.45 10*6/uL Normal 4.2-5.4 [facility] Comment on above: Order Comment: CANCE L WAS EMPH COVERS! Performed By: #### L 100.0100, L500.4100, L503.0105, L506.0250, L506.1000, L500.4050 ####[facility] [address] [place], [address] RDW SD 42.6 fl Normal 35.1-43.9 [facility] Comment on above: Order Comment: CANCE L WAS EMPH COVERS! Performed By: #### L 100.0100, L500.4100, L503.0105, L506.0250, L506.1000, L500.4050 ####[facility] [address] [place], [address] WBC (Bld) [#/Vol] 4.4 10*3/uL Normal 4.4-11.0 [facility] Comment on above: Order Comment: CANCE L WAS EMPH COVERS! Performed By: #### L 100.0100, L500.4100, L503.0105, L506.0250, L506.1000, L500.4050 ####[facility] [address] [place], [address] CBC, Employeeon 09-20-2024 Absolute Lymph 1.30 X10 3/uL Normal 0.83-4.51 [facility] Comment on above: Performed By: #### L 500.2900, L100.0200 ####[facility] [address] [place], [address] Absolute Neut 2.4 X10 3/uL Normal 2.0-7.7 [facility] Comment on above: Performed By: #### L 500.2900, L100.0200 ####[facility] [address] [place], [address] Basophils/100 WBC (Bld) 0.9 % Normal 0-1 [facility] Comment on above: Performed By: #### L 500.2900, L100.0200 ####[facility] [address] [place], [address] Eosinophils/100 WBC (Bld) 3.8 % Normal 0-5 [facility] Comment on above: Performed By: #### L 500.2900, L100.0200 ####[facility] [address] [place], [address] Erythrocyte distribution width (RBC) [Ratio] 12.6 % Normal 11.6-14.6 [facility] Comment on above: Performed By: #### L 500.2900, L100.0200 ####[facility] [address] [place], [address] Hematocrit (Bld) [Volume fraction] 40.7 % Normal 37-47 [facility] Comment on above: Performed By: #### L 500.2900, L100.0200 ####[facility] [address] [place], [address] Hemoglobin (Bld) [Mass/Vol] 13.6 g/dL Normal 12.0-15.0 [facility] Comment on above: Performed By: #### L 500.2900, L100.0200 ####[facility] [address] [place], [address] Lymphocytes/100 WBC (Bld) 30.7 % Normal 19-41 [facility] Comment on above: Performed By: #### L 500.2900, L100.0200 ####[facility] [address] [place], [address] MCH (RBC) [Entitic mass] 30.9 pg Normal 27.0-32.0 [facility] Comment on above: Performed By: #### L 500.2900, L100.0200 ####[facility] [address] [place], [address] MCHC (RBC) [Mass/Vol] 33.4 g/dL Normal 32-36 [facility] Comment on above: Performed By: #### L 500.2900, L100.0200 ####[facility] [address] [place], [address] MCV (RBC) [Entitic vol] 92.5 fL Normal 81-99 [facility] Comment on above: Performed By: #### L 500.2900, L100.0200 ####[facility] [address] [place], [address] Monocytes/100 WBC (Bld) 7.1 % Normal 0-10 [facility] Comment on above: Performed By: #### L 500.2900, L100.0200 ####[facility] [address] [place], [address] Neutrophils/100 WBC (Bld) 57.0 % Normal 47-70 [facility] Comment on above: Performed By: #### L 500.2900, L100.0200 ####[facility] [address] [place], [address] NRBC # 0.00 10 3/uL Normal 0-5 [facility] Comment on above: Performed By: #### L 500.2900, L100.0200 ####[facility] [address] [place], [address] Nucleated RBC (Bld) [#/Vol] 0 10*3/uL Normal 0-5 [facility] Comment on above: Performed By: #### L 500.2900, L100.0200 ####[facility] [address] [place], [address] Platelet mean volume (Bld) [Entitic vol] 8.9 fL Normal 6.2-12.0 [facility] Comment on above: Performed By: #### L 500.2900, L100.0200 ####[facility] [address] [place], [address] Platelets (Bld) [#/Vol] 204 10*3/uL Normal 150-450 [facility] Comment on above: Performed By: #### L 500.2900, L100.0200 ####[facility] [address] [place], [address] RBC (Bld) [#/Vol] 4.40 10*6/uL Normal 4.2-5.4 [facility] Comment on above: Performed By: #### L 500.2900, L100.0200 ####[facility] [address] [place], [address] RDW SD 43.4 fl Normal 35.1-43.9 [facility] Comment on above: Performed By: #### L 500.2900, L100.0200 ####[facility] [address] [place], [address] WBC (Bld) [#/Vol] 4.2 10*3/uL Low 4.4-11.0 [facility] Comment on above: Performed By: #### L 500.2900, L100.0200 ####[facility] [address] [place], [address] Comprehensive Metabolic Prof ilon 09-20-2024 Albumin [Mass/Vol] 4.0 g/dL Normal 3.2-5.0 [facility] Comment on above: Order Comment: PLEAS E ADD A LIPID THAT WAS MISSED FROM THIS MORNINGCANCEL WAS EMPH COVERS!LIPIDN Performed By: #### L 100.0100, L500.4100, L503.0105, L506.0250, L506.1000, L500.4050 ####[facility] [address] [place], [address] Albumin/Globulin [Mass ratio] 1.1 {ratio} Normal 0.9-2.4 [facility] Comment on above: Order Comment: PLEAS E ADD A LIPID THAT WAS MISSED FROM THIS MORNINGCANCEL WAS EMPH COVERS!LIPIDN Performed By: #### L 100.0100, L500.4100, L503.0105, L506.0250, L506.1000, L500.4050 ####[facility] [address] [place], [address] ALK P 60 U/L Normal 45-117 [facility] Comment on above: Order Comment: PLEAS E ADD A LIPID THAT WAS MISSED FROM THIS MORNINGCANCEL WAS EMPH COVERS!LIPIDN Performed By: #### L 100.0100, L500.4100, L503.0105, L506.0250, L506.1000, L500.4050 ####[facility] [address] [place], [address] ALT [Catalytic activity/Vol] 23 U/L Normal 13-56 [facility] Comment on above: Order Comment: PLEAS E ADD A LIPID THAT WAS MISSED FROM THIS MORNINGCANCEL WAS EMPH COVERS!LIPIDN Performed By: #### L 100.0100, L500.4100, L503.0105, L506.0250, L506.1000, L500.4050 ####[facility] [address] [place], [address] AST [Catalytic activity/Vol] 24 U/L Normal 15-37 [facility] Comment on above: Order Comment: PLEAS E ADD A LIPID THAT WAS MISSED FROM THIS MORNINGCANCEL WAS EMPH COVERS!LIPIDN Performed By: #### L 100.0100, L500.4100, L503.0105, L506.0250, L506.1000, L500.4050 ####[facility] [address] [place], [address] Bilirubin [Mass/Vol] 0.50 mg/dL Normal 0.20-1.00 [facility] Comment on above: Order Comment: PLEAS E ADD A LIPID THAT WAS MISSED FROM THIS MORNINGCANCEL WAS EMPH COVERS!LIPIDN Result Comment: For patients on eltrombopag therapy, use of Dimension [place] TBIL is not recommended. Performed By: #### L 100.0100, L500.4100, L503.0105, L506.0250, L506.1000, L500.4050 ####[facility] [address] [place], [address] BUN/CRE 18.7 RATIO Normal 10-20 [facility] Comment on above: Order Comment: PLEAS E ADD A LIPID THAT WAS MISSED FROM THIS MORNINGCANCEL WAS EMPH COVERS!LIPIDN Performed By: #### L 100.0100, L500.4100, L503.0105, L506.0250, L506.1000, L500.4050 ####[facility] [address] [place], [address] CA,Total 10.0 mg/dL Normal 8.5-10.1 [facility] Comment on above: Order Comment: PLEAS E ADD A LIPID THAT WAS MISSED FROM THIS MORNINGCANCEL WAS EMPH COVERS!LIPIDN Performed By: #### L 100.0100, L500.4100, L503.0105, L506.0250, L506.1000, L500.4050 ####[facility] [address] [place], [address] Chloride [Moles/Vol] 108 mmol/L High 98-107 [facility] Comment on above: Order Comment: PLEAS E ADD A LIPID THAT WAS MISSED FROM THIS MORNINGCANCEL WAS EMPH COVERS!LIPIDN Performed By: #### L 100.0100, L500.4100, L503.0105, L506.0250, L506.1000, L500.4050 ####[facility] [address] [place], [address] CO2 [Moles/Vol] 24.0 mmol/L Normal 21.0-32.0 [facility] Comment on above: Order Comment: PLEAS E ADD A LIPID THAT WAS MISSED FROM THIS MORNINGCANCEL WAS EMPH COVERS!LIPIDN Performed By: #### L 100.0100, L500.4100, L503.0105, L506.0250, L506.1000, L500.4050 ####[facility] [address] [place], [address] Creatinine [Mass/Vol] 0.75 mg/dL Normal 0.55-1.02 [facility] Comment on above: Order Comment: PLEAS E ADD A LIPID THAT WAS MISSED FROM THIS MORNINGCANCEL WAS EMPH COVERS!LIPIDN Result Comment: The validity of the calculated GFR GFRAA in patients over 70 years has not been determined. Clinical correlation is essential. Performed By: #### L 100.0100, L500.4100, L503.0105, L506.0250, L506.1000, L500.4050 ####[facility] [address] [place], [address] EST GFR - AA 98 mL/min Normal >60 [facility] Comment on above: Order Comment: PLEAS E ADD A LIPID THAT WAS MISSED FROM THIS MORNINGCANCEL WAS EMPH COVERS!LIPIDN Result Comment: Afri can [place] GFR Calc Performed By: #### L 100.0100, L500.4100, L503.0105, L506.0250, L506.1000, L500.4050 ####[facility] [address] [place], [address] GAP 6 Normal 5-15 [facility] Comment on above: Order Comment: PLEAS E ADD A LIPID THAT WAS MISSED FROM THIS MORNINGCANCEL WAS EMPH COVERS!LIPIDN Performed By: #### L 100.0100, L500.4100, L503.0105, L506.0250, L506.1000, L500.4050 ####[facility] [address] [place], [address] GFR/1.73 sq M.predicted among non-blacks MDRD (S/P/Bld) [Vol rate/Area] 81 mL/min/{1.73_m2} Normal >60 [facility] Comment on above: Order Comment: PLEAS E ADD A LIPID THAT WAS MISSED FROM THIS MORNINGCANCEL WAS EMPH COVERS!LIPIDN Result Comment: Non- GFR Calc Performed By: #### L 100.0100, L500.4100, L503.0105, L506.0250, L506.1000, L500.4050 ####[facility] [address] [place], [address] Globulin (S) [Mass/Vol] 3.5 g/dL Normal 2.2-4.2 [facility] Comment on above: Order Comment: PLEAS E ADD A LIPID THAT WAS MISSED FROM THIS MORNINGCANCEL WAS EMPH COVERS!LIPIDN Performed By: #### L 100.0100, L500.4100, L503.0105, L506.0250, L506.1000, L500.4050 ####[facility] [address] [place], [address] Glucose [Mass/Vol] 102 mg/dL Normal 74-106 [facility] Comment on above: Order Comment: PLEAS E ADD A LIPID THAT WAS MISSED FROM THIS MORNINGCANCEL WAS EMPH COVERS!LIPIDN Result Comment: Fast ing Glucose result from 100 to 125 mg/dL suggests IMPAIRED HOMEOSTASIS per A.D.A. criteria. Performed By: #### L 100.0100, L500.4100, L503.0105, L506.0250, L506.1000, L500.4050 ####[facility] [address] [place], [address] Potassium [Moles/Vol] 4.0 mmol/L Normal 3.5-5.1 [facility] Comment on above: Order Comment: PLEAS E ADD A LIPID THAT WAS MISSED FROM THIS MORNINGCANCEL WAS EMPH COVERS!LIPIDN Performed By: #### L 100.0100, L500.4100, L503.0105, L506.0250, L506.1000, L500.4050 ####[facility] [address] [place], [address] Sodium [Moles/Vol] 138 mmol/L Normal 136-145 [facility] Comment on above: Order Comment: PLEAS E ADD A LIPID THAT WAS MISSED FROM THIS MORNINGCANCEL WAS EMPH COVERS!LIPIDN Performed By: #### L 100.0100, L500.4100, L503.0105, L506.0250, L506.1000, L500.4050 ####[facility] [address] [place], [address] T PROT 7.5 g/dL Normal 6.4-8.2 [facility] Comment on above: Order Comment: PLEAS E ADD A LIPID THAT WAS MISSED FROM THIS MORNINGCANCEL WAS EMPH COVERS!LIPIDN Performed By: #### L 100.0100, L500.4100, L503.0105, L506.0250, L506.1000, L500.4050 ####[facility] [address] [place], [address] Urea nitrogen [Mass/Vol] 14 mg/dL Normal 7-18 [facility] Comment on above: Order Comment: CARYN Mazariegos ADD A LIPID THAT WAS MISSED FROM THIS MORNINGCANCEL WAS EMPH COVERS!LIPIDN Performed By: #### L 100.0100, L500.4100, L503.0105, L506.0250, L506.1000, L500.4050 ####[facility] [address] [place], [address] Employee Profileon 4 Albumin [Mass/Vol] 4.0 g/dL Normal 3.2-5.0 [facility] Comment on above: Performed By: #### L 500.2900, L100.0200 ####[facility] [address] [place], [address] Albumin/Globulin [Mass ratio] 1.1 {ratio} Normal 0.9-2.4 [facility] Comment on above: Performed By: #### L 500.2900, L100.0200 ####[facility] [address] [place], [address] ALK P 60 U/L Normal 45-117 [facility] Comment on above: Performed By: #### L 500.2900, L100.0200 ####[facility] [address] [place], [address] ALT [Catalytic activity/Vol] 22 U/L Normal 13-56 [facility] Comment on above: Performed By: #### L 500.2900, L100.0200 ####[facility] [address] [place], [address] AST [Catalytic activity/Vol] 24 U/L Normal 15-37 [facility] Comment on above: Performed By: #### L 500.2900, L100.0200 ####[facility] [address] [place], [address] Bilirubin [Mass/Vol] 0.50 mg/dL Normal 0.20-1.00 [facility] Comment on above: Result Comment: For patients on eltrombopag therapy, use of Dimension [place] TBIL is not recommended. Performed By: #### L 500.2900, L100.0200 ####[facility] [address] [place], [address] Bilirubin.direct [Mass/Vol] 0.15 mg/dL Normal 0.00-0.30 [facility] Comment on above: Performed By: #### L 500.2900, L100.0200 ####[facility] [address] [place], [address] BUN/CRE 20.4 RATIO High 10-20 [facility] Comment on above: Performed By: #### L 500.2900, L100.0200 ####[facility] [address] [place], [address] CA,Total 10.1 mg/dL Normal 8.5-10.1 [facility] Comment on above: Performed By: #### L 500.2900, L100.0200 ####[facility] [address] [place], [address] Chloride [Moles/Vol] 108 mmol/L High 98-107 [facility] Comment on above: Performed By: #### L 500.2900, L100.0200 ####[facility] [address] [place], [address] CHOL:HDL 2.20 Normal [facility] Comment on above: Performed By: #### L 500.2900, L100.0200 ####[facility] [address] [place], [address] Cholesterol [Mass/Vol] 213 mg/dL High [address] [facility] Comment on above: Result Comment: <200 mg/dL Desirable 200-240 mg/dL Borderline >240 mg/dL High Risk Performed By: #### L 500.2900, L100.0200 ####[facility] [address] [place], [address] Cholesterol in HDL [Mass/Vol] 95 mg/dL Normal [facility] Comment on above: Result Comment: The drugs N-Acetylcysteine and Metamizole may falsely depress this assay. Reference Range HDL <40 mg/dL Low HDL Cholesterol HDL >or= 60 mg/dL High HDL Cholesterol Performed By: #### L 500.2900, L100.0200 ####[facility] [address] [place], [address] Cholesterol in LDL [Mass/Vol] 109 mg/dL Normal 0-130 [facility] Comment on above: Performed By: #### L 500.2900, L100.0200 ####[facility] [address] [place], [address] Cholesterol in VLDL [Mass/Vol] 9 mg/dL Normal 5-40 [facility] Comment on above: Performed By: #### L 500.2900, L100.0200 ####[facility] [address] [place], [address] CO2 [Moles/Vol] 26.0 mmol/L Normal 21.0-32.0 [facility] Comment on above: Performed By: #### L 500.2900, L100.0200 ####[facility] [address] [place], [address] Creatinine [Mass/Vol] 0.74 mg/dL Normal 0.55-1.02 [facility] Comment on above: Result Comment: The validity of the calculated GFR GFRAA in patients over 70 years has not been determined. Clinical correlation is essential. Performed By: #### L 500.2900, L100.0200 ####[facility] [address] [place], [address] EST GFR - AA 100 mL/min Normal >60 [facility] Comment on above: Result Comment: Afri can [place] GFR Calc Performed By: #### L 500.2900, L100.0200 ####[facility] [address] [place], [address] GAP 3 Low 5-15 [facility] Comment on above: Performed By: #### L 500.2900, L100.0200 ####[facility] [address] [place], [address] GFR/1.73 sq M.predicted among non-blacks MDRD (S/P/Bld) [Vol rate/Area] 83 mL/min/{1.73_m2} Normal >60 [facility] Comment on above: Result Comment: Non- GFR Calc Performed By: #### L 500.2900, L100.0200 ####[facility] [address] [place], [address] Globulin (S) [Mass/Vol] 3.5 g/dL Normal 2.2-4.2 [facility] Comment on above: Performed By: #### L 500.2900, L100.0200 ####[facility] [address] [place], [address] Glucose [Mass/Vol] 102 mg/dL Normal 74-106 [facility] Comment on above: Result Comment: Fast ing Glucose result from 100 to 125 mg/dL suggests IMPAIRED HOMEOSTASIS per A.D.A. criteria. Performed By: #### L 500.2900, L100.0200 ####[facility] [address] [place], [address] LDH 100 U/L Normal 84-246 [facility] Comment on above: Performed By: #### L 500.2900, L100.0200 ####[facility] [address] [place], [address] Phosphate [Mass/Vol] 2.9 mg/dL Normal 2.5-4.9 [facility] Comment on above: Performed By: #### L 500.2900, L100.0200 ####[facility] [address] [place], [address] Potassium [Moles/Vol] 4.0 mmol/L Normal 3.5-5.1 [facility] Comment on above: Performed By: #### L 500.2900, L100.0200 ####[facility] [address] [place], [address] Sodium [Moles/Vol] 137 mmol/L Normal 136-145 [facility] Comment on above: Performed By: #### L 500.2900, L100.0200 ####[facility] [address] [place], [address] T PROT 7.5 g/dL Normal 6.4-8.2 [facility] Comment on above: Performed By: #### L 500.2900, L100.0200 ####[facility] [address] [place], [address] Triglyceride [Mass/Vol] 43 mg/dL Normal [facility] Comment on above: Result Comment: The drugs N-Acetylcysteine and Metamizole may falsely depress this assay. Serum Triglycerides Reference Interval Normal <150 mg/dL Borderline high 150 - 199 mg/dL High 200 - 499 mg/dL Very High > or = 500 mg/dL Performed By: #### L 500.2900, L100.0200 ####[facility] [address] [place], [address] Urea nitrogen [Mass/Vol] 15 mg/dL Normal 7-18 [facility] Comment on above: Performed By: #### L 500.2900, L100.0200 ####[facility] [address] [place], [address] URIC 3.8 mg/dL Normal 2.6-6.0 [facility] Comment on above: Result Comment: The drugs N-Acetylcysteine and Metamizole may falsely depress this assay. Performed By: #### L 500.2900, L100.0200 ####[facility] [address] [place], [address] Folates, (Folic Acid)on 08-29 FOLATES 14.20 ng/mL Normal 3.1-55.4 [facility] Comment on above: Order Comment: PLEAS E ADD A LIPID THAT WAS MISSED FROM THIS MORNINGCANCEL WAS EMPH COVERS!LIPIDN Performed By: #### L 100.0100, L500.4100, L503.0105, L506.0250, L506.1000, L500.4050 ####[facility] [id number] [place], [address] Lipid Profileon 09-20-2024 Cholesterol [Mass/Vol] 208 mg/dL High [address] [facility] Comment on above: Order Comment: PLEAS E ADD A LIPID THAT WAS MISSED FROM THIS MORNINGCANCEL WAS EMPH COVERS!LIPIDN Result Comment: <200 mg/dL Desirable 200-240 mg/dL Borderline >240 mg/dL High Risk Performed By: #### L 100.0100, L500.4100, L503.0105, L506.0250, L506.1000, L500.4050 ####[facility] [id number] [place], [address] Cholesterol in HDL [Mass/Vol] 93 mg/dL Normal [facility] Comment on above: Order Comment: PLEAS E ADD A LIPID THAT WAS MISSED FROM THIS MORNINGCANCEL WAS EMPH COVERS!LIPIDN Result Comment: The drugs N-Acetylcysteine and Metamizole may falsely depress this assay. Reference Range HDL <40 mg/dL Low HDL Cholesterol HDL >or= 60 mg/dL High HDL Cholesterol Performed By: #### L 100.0100, L500.4100, L503.0105, L506.0250, L506.1000, L500.4050 ####[facility] [id number] [place], [address] Cholesterol in LDL [Mass/Vol] 106 mg/dL Normal 0-130 [facility] Comment on above: Order Comment: PLEAS E ADD A LIPID THAT WAS MISSED FROM THIS MORNINGCANCEL WAS EMPH COVERS!LIPIDN Performed By: #### L 100.0100, L500.4100, L503.0105, L506.0250, L506.1000, L500.4050 ####[facility] [id number] [place], [address] Cholesterol in VLDL [Mass/Vol] 9 mg/dL Normal 5-40 [facility] Comment on above: Order Comment: PLEAS E ADD A LIPID THAT WAS MISSED FROM THIS MORNINGCANCEL WAS EMPH COVERS!LIPIDN Performed By: #### L 100.0100, L500.4100, L503.0105, L506.0250, L506.1000, L500.4050 ####[facility] [id number] [place], [address] Triglyceride [Mass/Vol] 47 mg/dL Normal [facility] Comment on above: Order Comment: PLEAS E ADD A LIPID THAT WAS MISSED FROM THIS MORNINGCANCEL WAS EMPH COVERS!LIPIDN Result Comment: The drugs N-Acetylcysteine and Metamizole may falsely depress this assay. Serum Triglycerides Reference Interval Normal <150 mg/dL Borderline high 150 - 199 mg/dL High 200 - 499 mg/dL Very High > or = 500 mg/dL Performed By: #### L 100.0100, L500.4100, L503.0105, L506.0250, L506.1000, L500.4050 ####[facility] [id number] [place], [address] Vitamin B12on 09-20-2024 Cobalamin (Vitamin B12) [Mass/Vol] 466 pg/mL Normal 211-911 [facility] Comment on above: Order Comment: MATILDACE L WAS EMPH COVERS! Performed By: #### L 100.0100, L500.4100, L503.0105, L506.0250, L506.1000, L500.4050 ####[facility] [id number] [place], [address] Vitamin D,25 Hydroxyon 09-20 Vitamin D 25-OH 44.3 ng/mL Normal [facility] Comment on above: Order Comment: GABRIEL Garcia WAS EMPH COVERS! Result Comment: Charo min D 25(OH) Status Range Deficiency <20 ng/mL (50nmol/L) Insufficiency 20 - 30 ng/mL (50 - 75 nmol/L) Sufficiency 30 - 100 ng/mL (75 - 250 nmol/L) Toxicity >100 ng/mL (>250 nmol/L) Performed By: #### L 100.0100, L500.4100, L503.0105, L506.0250, L506.1000, L500.4050 ####[facility] [id number] [place], [address] Coronary Angiography CTon Coronary Angiography CT [facility] Imaging Services [address] [place] [address] 07/31/24 0629 MR#: [id number] Acct: [id number] Name: ERIN DYSON APOLLO Rep #: [id number] : 1955 68 From: Phillip Borrego MD [...] MD; Dr. Rajat Norton DO Signed Normal [facility] Limited Chest CT Cardiac Onl yon 07-24-[address] Cardiac Only [facility] Imaging Services [address] [place] [id number] Cardiac Only MR#: [id number] Acct: [id number] Name: ERIN DYSON Rep #: [id number] : 1955 F 68 From: Rafal rosas MD PCP: Dr. Rajat Norton DO Status: [facility] Study: Limited Chest CT Cardiac Only Date of Exam: Exam# [id number] Ordering Dr: Rajat Norton DO [id number] STUDY: CT CHEST WITHOUT CONTRAST REASON FOR [...] at 15:04 EDT , CC: Dr. 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 Chloride [Moles/Vol] 104 mmol/L 98-107 [facility] Cholesterol [Mass/Vol] 230 mg/dL <[address] [facility] Comment on above: <200 mg/dL Desirable 200-240 mg/dL Borderline >240 mg/dL High Risk Glucose [Mass/Vol] 89 mg/dL 74-106 [facility] Hemoglobin (Bld) [Mass/Vol] 13.5 g/dL 12.0-15.0 [facility] LDH [Catalytic activity/Vol] 103 U/L 84-246 [facility] Neutrophils (Bld) [#/Vol] 2.3 10*3/uL 2.0-7.7 [facility] Potassium [Moles/Vol] 3.9 mmol/L 3.5-5.1 [facility] Protein [Mass/Vol] 7.4 g/dL 6.4-8.2 [facility] Sodium [Moles/Vol] 139 mmol/L 136-145 [facility] Triglyceride [Mass/Vol] 47 mg/dL <199 [facility] Comment on above: The drugs N-Acetylcy steine and Metamizole may falsely depress this assay.Serum Triglycerides Reference Interval Normal <150 mg/dL Borderline high 150 - 199 mg/dL High 200 - 499 mg/dL Very High > or = 500 mg/dL WBC (Bld) [#/Vol] 4.1 10*3/uL 4.4-11.0 [facility] Bilirubin Test strip Ql (U)O rdered By: HEALTH ASSESSMENT on 03-22-2024 Bilirubin Ql (U) Negative Negative [facility] Blood band neutrophil count as percentage of total leukocytesOrdered By: HEALTH ASSESSMENT on 03-22-2024 Band form neutrophils/100 WBC (Bld) 54.4 % 47-70 [facility] Determination of erythrocyte mean corpuscular volume (MCV)Ordered By: HEALTH ASSESSMENT on 03-22-2024 MCV (RBC) [Entitic vol] 94.7 fL 81-99 [facility] Direct bilirubinOrdered By: HEALTH ASSESSMENT on 03-22-2024 Bilirubin.direct [Mass/Vol] 0.15 mg/dL 0.00-0.30 [facility] Erythrocyte distribution wid th ratioOrdered By: HEALTH ASSESSMENT on 03-22-2024 Erythrocyte distribution width (RBC) [Ratio] 12.6 % 11.6-14.6 [facility] Erythrocyte distribution wid th standard deviationOrdered By: HEALTH ASSESSMENT on 03-22-2024 Erythrocyte distribution width (RBC) [Entitic vol] 44.2 fL 35.1-43.9 [facility] Hematocrit Auto (Bld) [Volum e fraction]Ordered By: HEALTH ASSESSMENT on 03-22-2024 Hematocrit (Bld) [Volume fraction] 41.3 % 37-47 [facility] Ketones Test strip Ql (U)Ord ered By: HEALTH ASSESSMENT on 03-22-2024 Ketones Ql (U) Negative Negative [facility] Laboratory - Chemistry and C hemistry - challengeOrdered By: HEALTH ASSESSMENT on 03-22-2024 Albumin/Globulin [Mass ratio] 1.2 {ratio} 0.9-2.4 [facility] ALP [Catalytic activity/Vol] 55 U/L 45-117 [facility] ALT [Catalytic activity/Vol] 26 U/L 13-56 [facility] Cholesterol in HDL [Mass/Vol] 93 mg/dL >40 [facility] Comment on above: The drugs N-Acetylcy steine and Metamizole may falsely depress this assay. Reference Range HDL <40 mg/dL Low HDL Cholesterol HDL >or= 60 mg/dL High HDL Cholesterol Cholesterol in LDL [Mass/Vol] 128 mg/dL 0-130 [facility] Cholesterol.total/Maggie sterol in HDL [Mass ratio] 2.50 {ratio} [facility] CO2 [Moles/Vol] 28.0 mmol/L 21.0-32.0 [facility] Globulin (S) [Mass/Vol] 3.4 g/dL 2.2-4.2 [facility] Urea nitrogen/Creatinine [Mass ratio] 19.5 mg/mg 10-20 [facility] Laboratory - Chemistry and C hemistry - challengeOrdered By: Rajat Norton on 03-22-2024 Cobalamin (Vitamin B12) [Mass/Vol] 585 pg/mL 211-911 [facility] Laboratory - Hematology and Cell countsOrdered By: HEALTH ASSESSMENT on 03-22-2024 MCH (RBC) [Entitic mass] 31.0 pg 27.0-32.0 [facility] MCHC (RBC) [Mass/Vol] 32.7 g/dL 32-36 [facility] Nucleated RBC (Bld) [#/Vol] 0.00 10*3/uL 0-5 [facility] Nucleated RBC/100 WBC (Bld) [Ratio] 0 % 0-5 [facility] Platelet mean volume (Bld) [Entitic vol] 9.1 fL 6.2-12.0 [facility] Platelets (Bld) [#/Vol] 224 10*3/uL 150-450 [facility] Nitrite Test strip Ql (U)Ord ered By: HEALTH ASSESSMENT on 03-22-2024 Nitrite Ql (U) Negative Negative [facility] No Panel InformationOrdered By: HEALTH ASSESSMENT on 03-22-2024 Estimated GFR (MDRD) Amer 96 mL/min >60 [facility] Comment on above: GFR Calc Estimated GFR (MDRD) Non-Af Amer 79 mL/min >60 [facility] Comment on above: Non- GFR Calc VLDL Cholesterol 9 mg/dL 5-40 [facility] No Panel InformationOrdered By: Rajat Fast on 03-22-2024 Vitamin D 25-Hydroxy 53.6 ng/mL [facility] Comment on above: Vitamin D 25(OH) Sta tus Range Deficiency <20 ng/mL (50nmol/L) Insufficiency 20 - 30 ng/mL (50 - 75 nmol/L) Sufficiency 30 - 100 ng/mL (75 - 250 nmol/L) Toxicity >100 ng/mL (>250 nmol/L) Protein Test strip Ql (U)Ord ered By: HEALTH ASSESSMENT on 03-22-2024 Protein Ql (U) Negative Negative [facility] RBC Auto (Bld) [#/Vol]Ordere d By: HEALTH ASSESSMENT on 03-22-2024 RBC (Bld) [#/Vol] 4.36 10*6/uL 4.2-5.4 [facility] Serum or plasma calcium peggy urement (mass/volume)Ordered By: HEALTH ASSESSMENT on 03-22-2024 Calcium [Mass/Vol] 9.8 mg/dL 8.5-10.1 [facility] Serum or plasma creatinine m easurement (mass/volume)Ordered By: HEALTH ASSESSMENT on 03-22-2024 Creatinine [Mass/Vol] 0.77 mg/dL 0.55-1.02 [facility] Comment on above: The validity of the calculated GFR & GFRAA in patients over 70 years has not been determined. Clinical correlation is essential. Serum or plasma thyroid stim ulating hormone (TSH) measurement (units/volume)Ordered By: Rajat Fast on 03-22-2024 TSH Qn 2.54 uIU/mL 0.358-3.74 [facility] Serum or plasma urea nitroge n measurement (mass/volume)Ordered By: HEALTH ASSESSMENT on 03-22-2024 Urea nitrogen [Mass/Vol] 15 mg/dL 7-18 [facility] Serum or plasma uric acid me asurement (mass/volume)Ordered By: HEALTH ASSESSMENT on 03-22-2024 Urate [Mass/Vol] 3.8 mg/dL 2.6-6.0 [facility] Comment on above: The drugs N-Acetylcy steine and Metamizole may falsely depress this assay. Thin prep Papanicolaou smear with manual screeningOrdered By: HEALTH ASSESSMENT on 03-22-2024 Thin prep Papanicolaou smear with manual screening 4.0 g/dL 3.2-5.0 [facility] Thin prep Papanicolaou smear with manual screening 26 U/L 15-37 [facility] Thin prep Papanicolaou smear with manual screening 7 5-15 [facility] Urine blood detectionOrdered By: HEALTH ASSESSMENT on 03-22-2024 RBC Ql (U) Negative Negative [facility] Urine clarityOrdered By: [facility] ASSESSMENT on 03-22-2024 Clarity (U) Clear Clear [facility] Urine color determinationOrd ered By: HEALTH ASSESSMENT on 03-22-2024 Color (U) Straw Yellow [facility] Urine glucose detectionOrder ed By: HEALTH ASSESSMENT on 03-22-2024 Glucose Ql (U) Normal mg/dl Normal [facility] Urine leukocyte esterase det ection by dipstickOrdered By: HEALTH ASSESSMENT on 03-22-2024 Leukocyte esterase Test strip Ql (U) Negative Negative [facility] Urine pHOrdered By: HEALTH A SSESSMENT on 03-22-2024 pH (U) 6.5 [pH] 5.0 - 8.0 [facility] Urine specific gravity measu rementOrdered By: HEALTH ASSESSMENT on 03-22-2024 Specific gravity (U) [Rel density] 1.005 1.002-1.030 [facility] Urine urobilinogen measureme ntOrdered By: HEALTH ASSESSMENT on 03-22-2024 Urobilinogen Ql (U) Normal mg/dl Normal [facility] Laboratory - Microbiology an d Antimicrobial susceptibilityon 12-20-2023 SARS-CoV-2 (COVID-19) RNA HUSSAIN+probe Ql (Unsp spec) Detected [facility] No Panel Informationon 12-20 POC Nasal Swab Influenza A,B Not detected [facility] POC Nasal Swab RSV Not detected [facility] No Panel Informationon 10-04 [facility] Absolute lymphocyte countOrd ered By: HEALTH ASSESSMENT on 09-15-2023 Lymphocytes Auto (Unsp spec) [#/Vol] 1.16 10*3/uL 0.83-4.51 [facility] Absolute reticulocyte countO rdered By: HEALTH ASSESSMENT on 09-15-2023 Reticulocytes (Bld) [#/Vol] 0.00 10*3/uL 0-5 [facility] Basophil percentageOrdered B y: HEALTH ASSESSMENT on 09-15-2023 Basophil percentage 2.8 mg/dL 2.5-4.9 [facility] Bilirubin [Mass/Vol] 0.40 mg/dL 0.20-1.00 [facility] Comment on above: For patients on eltr ombopag therapy, use of Dimension [place] TBIL is not recommended. Chloride [Moles/Vol] 104 mmol/L 98-107 [facility] Cholesterol [Mass/Vol] 210 mg/dL <[address] [facility] Comment on above: <200 mg/dL Desirable 200-240 mg/dL Borderline >240 mg/dL High Risk Glucose [Mass/Vol] 98 mg/dL 74-106 [facility] LDH [Catalytic activity/Vol] 109 U/L 84-246 [facility] Neutrophils (Bld) [#/Vol] 3.9 10*3/uL 2.0-7.7 [facility] Potassium [Moles/Vol] 4.1 mmol/L 3.5-5.1 [facility] Protein [Mass/Vol] 7.2 g/dL 6.4-8.2 [facility] Sodium [Moles/Vol] 137 mmol/L 136-145 [facility] Triglyceride [Mass/Vol] 49 mg/dL <199 [facility] Comment on above: The drugs N-Acetylcy steine and Metamizole may falsely depress this assay.Serum Triglycerides Reference Interval Normal <150 mg/dL Borderline high 150 - 199 mg/dL High 200 - 499 mg/dL Very High > or = 500 mg/dL WBC (Bld) [#/Vol] 5.5 10*3/uL 4.4-11.0 [facility] Blood erythrocytes count (nu mber/volume)Ordered By: HEALTH ASSESSMENT on 09-15-2023 RBC (Bld) [#/Vol] 4.29 10*6/uL 4.2-5.4 [facility] Blood hemoglobin measurement (mass/volume)Ordered By: HEALTH ASSESSMENT on 09-15-2023 Hemoglobin (Bld) [Mass/Vol] 13.3 g/dL 12.0-15.0 [facility] Blood platelet mean volumeOr dered By: HEALTH ASSESSMENT on 09-15-2023 Platelet mean volume (Bld) [Entitic vol] 8.9 fL 6.2-12.0 [facility] Determination of erythrocyte mean corpuscular volume (MCV)Ordered By: HEALTH ASSESSMENT on 09-15-2023 MCV (RBC) [Entitic vol] 94.9 fL 81-99 [facility] Direct bilirubinOrdered By: HEALTH ASSESSMENT on 09-15-2023 Bilirubin.direct [Mass/Vol] 0.11 mg/dL 0.00-0.30 [facility] Hematocrit Auto (Bld) [Volum e fraction]Ordered By: HEALTH ASSESSMENT on 09-15-2023 Hematocrit (Bld) [Volume fraction] 40.7 % 37-47 [facility] Laboratory - Chemistry and C hemistry - challengeOrdered By: HEALTH ASSESSMENT on 09-15-2023 ALP [Catalytic activity/Vol] 54 U/L 45-117 [facility] ALT [Catalytic activity/Vol] 29 U/L 13-56 [facility] Cholesterol.total/Maggie sterol in HDL [Mass ratio] 2.30 {ratio} [facility] CO2 [Moles/Vol] 28.0 mmol/L 21.0-32.0 [facility] Globulin (S) [Mass/Vol] 3.6 g/dL 2.2-4.2 [facility] Urea nitrogen/Creatinine [Mass ratio] 18.0 mg/mg 10-20 [facility] Laboratory - Hematology and Cell countsOrdered By: HEALTH ASSESSMENT on 09-15-2023 Erythrocyte distribution width (RBC) [Entitic vol] 45.0 fL 35.1-43.9 [facility] Erythrocyte distribution width (RBC) [Ratio] 12.9 % 11.6-14.6 [facility] MCH (RBC) [Entitic mass] 31.0 pg 27.0-32.0 [facility] Nucleated RBC/100 WBC (Bld) [Ratio] 0 % 0-5 [facility] MCHC Auto (RBC) [Mass/Vol]Or dered By: HEALTH ASSESSMENT on 09-15-2023 MCHC (RBC) [Mass/Vol] 32.7 g/dL 32-36 [facility] No Panel InformationOrdered By: HEALTH ASSESSMENT on 09-15-2023 Estimated GFR (MDRD) Amer 87 mL/min >60 [facility] Comment on above: GFR Calc Estimated GFR (MDRD) Non-Af Amer 72 mL/min >60 [facility] Comment on above: Non- GFR Calc Platelets bldOrdered By: HEA LT ASSESSMENT on 09-15-2023 Platelets (Bld) [#/Vol] 211 10*3/uL 150-450 [facility] Segmented neutrophils/100 WB C Auto (Bld)Ordered By: HEALTH ASSESSMENT on 09-15-2023 Segmented neutrophils/100 WBC (Bld) 70.0 % 47-70 [facility] Serum or plasma albumin peggy urement (mass/volume)Ordered By: HEALTH ASSESSMENT on 09-15-2023 Albumin [Mass/Vol] 3.6 g/dL 3.2-5.0 [facility] Serum or plasma albumin/glob ulin mass ratioOrdered By: HEALTH ASSESSMENT on 09-15-2023 Albumin/Globulin [Mass ratio] 1.0 {ratio} 0.9-2.4 [facility] Serum or plasma calcium peggy urement (mass/volume)Ordered By: HEALTH ASSESSMENT on 09-15-2023 Calcium [Mass/Vol] 9.3 mg/dL 8.5-10.1 [facility] Serum or plasma cholesterol in HDL measurement (mass/volume)Ordered By: HEALTH ASSESSMENT on 09-15-2023 Cholesterol in HDL [Mass/Vol] 92 mg/dL >40 [facility] Comment on above: The drugs N-Acetylcy steine and Metamizole may falsely depress this assay. Reference Range HDL <40 mg/dL Low HDL Cholesterol HDL >or= 60 mg/dL High HDL Cholesterol Serum or plasma cholesterol in VLDL measurement (mass/volume)Ordered By: HEALTH ASSESSMENT on 09-15-2023 Cholesterol in VLDL [Mass/Vol] 10 mg/dL 5-40 [facility] Serum or plasma creatinine m easurement (mass/volume)Ordered By: HEALTH ASSESSMENT on 09-15-2023 Creatinine [Mass/Vol] 0.83 mg/dL 0.55-1.02 [facility] Comment on above: The validity of the calculated GFR & GFRAA in patients over 70 years has not been determined. Clinical correlation is essential. Serum or plasma low density lipoprotein (LDL) cholesterol measurement (mass/volume)Ordered By: HEALTH ASSESSMENT on 09-15-2023 Cholesterol in LDL [Mass/Vol] 108 mg/dL 0-130 [facility] Serum or plasma urea nitroge n measurement (mass/volume)Ordered By: HEALTH ASSESSMENT on 09-15-2023 Urea nitrogen [Mass/Vol] 15 mg/dL 7-18 [facility] Serum or plasma uric acid me asurement (mass/volume)Ordered By: HEALTH ASSESSMENT on 09-15-2023 Urate [Mass/Vol] 4.1 mg/dL 2.6-6.0 [facility] Comment on above: The drugs N-Acetylcy steine and Metamizole may falsely depress this assay. Thin prep Papanicolaou smear with manual screeningOrdered By: HEALTH ASSESSMENT on 09-15-2023 Thin prep Papanicolaou smear with manual screening 23 U/L 15-37 [facility] Thin prep Papanicolaou smear with manual screening 5 5-15 [facility] Basophil percentageOrdered B y: Dr. Norton on 01-07-2023 Bilirubin [Mass/Vol] 0.60 mg/dL 0.20-1.00 [facility] Comment on above: For patients on eltr ombopag therapy, use of Dimension [place] TBIL is not recommended. Chloride [Moles/Vol] 106 mmol/L 98-107 [facility] Cholesterol [Mass/Vol] 232 mg/dL <[address] [facility] Comment on above: <200 mg/dL Desirable 200-240 mg/dL Borderline >240 mg/dL High Risk Glucose [Mass/Vol] 95 mg/dL 74-106 [facility] Potassium [Moles/Vol] 4.2 mmol/L 3.5-5.1 [facility] Protein [Mass/Vol] 7.6 g/dL 6.4-8.2 [facility] Sodium [Moles/Vol] 140 mmol/L 136-145 [facility] Triglyceride [Mass/Vol] 55 mg/dL <199 [facility] Comment on above: The drugs N-Acetylcy steine and Metamizole may falsely depress this assay.Serum Triglycerides Reference Interval Normal <150 mg/dL Borderline high 150 - 199 mg/dL High 200 - 499 mg/dL Very High > or = 500 mg/dL Laboratory - Chemistry and C hemistry - challengeOrdered By: Dr. Norton on 01-07-2023 ALP [Catalytic activity/Vol] 50 U/L 45-117 [facility] ALT [Catalytic activity/Vol] 23 U/L 13-56 [facility] CO2 [Moles/Vol] 27.0 mmol/L 21.0-32.0 [facility] Globulin (S) [Mass/Vol] 3.6 g/dL 2.2-4.2 [facility] Urea nitrogen/Creatinine [Mass ratio] 15.2 mg/mg 10-20 [facility] No Panel InformationOrdered By: Dr. Norton on 01-07-2023 Estimated GFR (MDRD) Amer 85 mL/min >60 [facility] Comment on above: GFR Calc Estimated GFR (MDRD) Non-Af Amer 70 mL/min >60 [facility] Comment on above: Non- GFR Calc Vitamin D 25-Hydroxy 63.4 ng/mL [facility] Comment on above: Vitamin D 25(OH) Sta tus Range Deficiency <20 ng/mL (50nmol/L) Insufficiency 20 - 30 ng/mL (50 - 75 nmol/L) Sufficiency 30 - 100 ng/mL (75 - 250 nmol/L) Toxicity >100 ng/mL (>250 nmol/L) Serum or plasma albumin peggy urement (mass/volume)Ordered By: Dr. Norton on 01-07-2023 Albumin [Mass/Vol] 4.0 g/dL 3.2-5.0 [facility] Serum or plasma albumin/glob ulin mass ratioOrdered By: Dr. Norton on 01-07-2023 Albumin/Globulin [Mass ratio] 1.1 {ratio} 0.9-2.4 [facility] Serum or plasma calcium peggy urement (mass/volume)Ordered By: Dr. Norton on 01-07-2023 Calcium [Mass/Vol] 9.9 mg/dL 8.5-10.1 [facility] Serum or plasma cholesterol in HDL measurement (mass/volume)Ordered By: Dr. Norton on 01-07-2023 Cholesterol in HDL [Mass/Vol] 103 mg/dL >40 [facility] Comment on above: The drugs N-Acetylcy steine and Metamizole may falsely depress this assay. Reference Range HDL <40 mg/dL Low HDL Cholesterol HDL >or= 60 mg/dL High HDL Cholesterol Serum or plasma cholesterol in VLDL measurement (mass/volume)Ordered By: Dr. Norton on 01-07-2023 Cholesterol in VLDL [Mass/Vol] 11 mg/dL 5-40 [facility] Serum or plasma creatinine m easurement (mass/volume)Ordered By: Dr. Norton on 01-07-2023 Creatinine [Mass/Vol] 0.86 mg/dL 0.55-1.02 [facility] Comment on above: The validity of the calculated GFR & GFRAA in patients over 70 years has not been determined. Clinical correlation is essential. Serum or plasma low density lipoprotein (LDL) cholesterol measurement (mass/volume)Ordered By: Dr. Norton on 01-07-2023 Cholesterol in LDL [Mass/Vol] 118 mg/dL 0-130 [facility] Serum or plasma urea nitroge n measurement (mass/volume)Ordered By: Dr. Norton on 01-07-2023 Urea nitrogen [Mass/Vol] 13 mg/dL 7-18 [facility] Thin prep Papanicolaou smear with manual screeningOrdered By: Dr. Norton on 01-07-2023 Thin prep Papanicolaou smear with manual screening 26 U/L 15-37 [facility] Thin prep Papanicolaou smear with manual screening 7 5-15 [facility] CBC W/AUTO DIFF WBC ([id number])O rdered By: Picking 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 Helper on 06-25-2022 Basophils (Bld) [#/Vol] 0.0 10*3/uL Normal 0.0-0.2 [facility]; [facility] Work Phone: Comment on above: PATIENT WAS FASTINGP ERFORMED BY: [facility] [id number] [facility] [id number] Information: NURSE DRAW; wellness labs for 812 Basophils/100 WBC (Bld) 1 % [facility]; [facility] Work Phone: Comment on above: PATIENT WAS FASTINGP ERFORMED BY: [facility] [id number] [facility] [id number] Information: NURSE DRAW; wellness labs for 812 Eosinophils (Bld) [#/Vol] 0.1 10*3/uL Normal 0.0-0.4 [facility]; [facility] Work Phone: Comment on above: PATIENT WAS FASTINGP ERFORMED BY: [facility] [id number] [facility] [id number] Information: NURSE DRAW; wellness labs for 07/09 Eosinophils/100 WBC (Bld) 2 % Normal [facility]; [facility] Work Phone: Comment on above: PATIENT WAS FASTINGP ERFORMED BY: LabWilliam [place] [id number] [facility] [id number] Information: NURSE DRAW; wellness labs for 07/09 Erythrocyte distribution width (RBC) [Ratio] 12.6 % Normal 11.7-15.4 [facility]; [facility] Work Phone: Comment on above: PATIENT WAS FASTINGP ERFORMED BY: [facility] [id number] [facility] [facility] [id number] Information: NURSE DRAW; wellness labs for 12 Hematocrit (Bld) [Volume fraction] 38.4 % Normal 34.0-46.6 [facility]; [facility] Work Phone: Comment on above: PATIENT WAS FASTINGP ERFORMED BY: [facility] Eucomp[address] [facility] [id number] Information: NURSE DRAW; wellness labs for 812 Hemoglobin (Bld) [Mass/Vol] 13.1 g/dL Normal 11.1-15.9 [facility]; [facility] Work Phone: Comment on above: PATIENT WAS FASTINGP ERFORMED BY: CAMMIE [place] [id number] [facility] [id number] Information: NURSE DRAW; wellness labs for 8 Immature granulocytes (Bld) [#/Vol] 0.0 10*3/uL Normal 0.0-0.1 [facility]; [facility] Work Phone: Comment on above: PATIENT WAS FASTINGP ERFORMED BY: [address] [id number] Information: NURSE DRAW; wellness labs for 07/09 Immature granulocytes/100 WBC (Bld) 0 % Normal [facility]; [facility] Work Phone: Comment on above: PATIENT WAS FASTINGP ERFORMED BY: [address] [id number] Information: NURSE DRAW; wellness labs for 07/09 Lymphocytes (Bld) [#/Vol] 1.1 10*3/uL Normal 0.7-3.1 [facility]; [facility] Work Phone: Comment on above: PATIENT WAS FASTINGP ERFORMED BY: Sriram[address] [id number] Information: NURSE DRAW; wellness labs for 07/09 Lymphocytes/100 WBC (Bld) 29 % Normal [facility]; [facility] Work Phone: Comment on above: PATIENT WAS FASTINGP ERFORMED BY: [place] [id number] [facility] [id number] Information: NURSE DRAW; wellness labs for 07/09 MCH (RBC) [Entitic mass] 31.0 pg Normal 26.6-33.0 [facility]; [facility] Work Phone: Comment on above: PATIENT WAS FASTINGP ERFORMED BY: [place] [id number] [facility] [id number] Information: NURSE DRAW; wellness labs for 07/09 MCHC (RBC) [Mass/Vol] 34.1 g/dL Normal 31.5-35.[address] [facility]; [facility] Work Phone: Comment on above: PATIENT WAS FASTINGP ERFORMED BY: CAMMIE Santos Pxqqze6662 [facility] [id number] Information: NURSE DRAW; wellness labs for 812 MCV (RBC) [Entitic vol] 91 fL Normal 79-97 [facility]; [facility] Work Phone: Comment on above: PATIENT WAS FASTINGP ERFORMED BY: LabWilliam Ville [id number] [facility] [id number] Information: NURSE DRAW; wellness labs for 812 Monocytes (Bld) [#/Vol] 0.2 10*3/uL Normal 0.1-0.9 [facility]; [facility] Work Phone: Comment on above: PATIENT WAS FASTINGP ERFORMED BY: [place] [id number] [facility] [id number] Information: NURSE DRAW; wellness labs for 8 Monocytes/100 WBC (Bld) 6 % Normal [facility] Internal Medicine; [facility] Work Phone: Comment on above: PATIENT WAS FASTINGP ERFORMED BY: LabWilliam Ville [id number] [facility] [id number] Information: NURSE DRAW; wellness labs for 812 Neutrophils (Bld) [#/Vol] 2.3 10*3/uL Normal 1.4-7.0 [facility]; [facility] Work Phone: Comment on above: PATIENT WAS FASTINGP ERFORMED BY: LabWilliam [place] [id number] [facility] [id number] Information: NURSE DRAW; wellness labs for 8/12 Neutrophils/100 WBC (Bld) 62 % Normal [facility] Internal Medicine; [facility] Work Phone: Comment on above: PATIENT WAS FASTINGP ERFORMED BY: LabWilliam [place] [id number] [facility] [id number] Information: NURSE DRAW; wellness labs for 07/09 Platelets (Bld) [#/Vol] 223 10*3/uL Normal 150-450 [facility]; [facility] Work Phone: Comment on above: PATIENT WAS FASTINGP ERFORMED BY: CAM[facility]E [facility] Vwrorw6904 [facility] [id number] Information: NURSE DRAW; wellness labs for 07/09 RBC (Bld) [#/Vol] 4.23 10*6/uL Normal 3.77-5.28 [facility] Internal Medicine; [facility] Work Phone: Comment on above: PATIENT WAS FASTINGP ERFORMED BY: CAMMIE Labfredy Gekghi8136 [facility] [id number] Information: NURSE DRAW; wellness labs for 07/09 WBC (Bld) [#/Vol] 3.7 10*3/uL Normal 3.4-10.8 [facility] Internal Medicine; [facility] Work Phone: Comment on above: PATIENT WAS FASTINGP ERFORMED BY: CAMMIE [facility] Okkokn3207 [facility] [id number] Information: NURSE DRAW; wellness labs for 07/09 METABOLIC PANEL, COMPREHENSI FANG ([id number])Ordered By: Picking 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 Helper on 06-25-2022 Albumin [Mass/Vol] 4.4 g/dL Normal 3.8-4.8 [facility] Internal Medicine; [facility] Work Phone: Comment on above: PATIENT WAS FASTINGP ERFORMED BY: CAMMIE [facility] Npjhsz1065 [facility] [id number] Albumin/Globulin [Mass ratio] 1.8 {ratio} Normal 1.2-2.2 [facility]; [facility] Work Phone: Comment on above: PATIENT WAS FASTINGP ERFORMED BY: CAMMIE [facility] Ryivza7836 [facility] [id number] ALP [Catalytic activity/Vol] 52 U/L Normal 44-121 [facility]; [facility] Work Phone: Comment on above: PATIENT WAS FASTINGP ERFORMED BY: CAMMIE Bhatiaco Nmiymc5818 [address] RoadDublin [place] [id number] ALT [Catalytic activity/Vol] 14 U/L Normal 0-32 [facility]; [facility] Work Phone: Comment on above: PATIENT WAS FASTINGP ERFORMED BY: [facility] Mdlrjc4134 [address] RoadDublin [place] [id number] AST [Catalytic activity/Vol] 23 U/L Normal 0-40 [facility]; [facility] Work Phone: Comment on above: PATIENT WAS FASTINGP ERFORMED BY: [facility] Flwbaj0114 [address] RoadDublin [place] [id number] Bilirubin [Mass/Vol] 0.4 mg/dL Normal 0.0-1.2 Comp rehensive Internal Medicine; [facility] Work Phone: Comment on above: PATIENT WAS FASTINGP ERFORMED BY: [facility] Jefwdd5946 [address] RoadAtrium Health Pinevillein [place] [id number] Calcium [Mass/Vol] 10.2 mg/dL Normal 8.7-10.3 [facility] Internal Medicine; [facility] Work Phone: Comment on above: PATIENT WAS FASTINGP ERFORMED BY: [facility] Vqdalt4839 [address] RoadAtrium Health Pinevillein [place] [id number] Chloride [Moles/Vol] 105 mmol/L Normal 96-106 Comp rehensive Internal Medicine; [facility] Work Phone: Comment on above: PATIENT WAS FASTINGP ERFORMED BY: [facility] Ukrxcu6085 [address] Roadblin [place] [id number] CO2 [Moles/Vol] 24 mmol/L Normal 20-29 Com[facility]hen [facility]; [facility] Work Phone: Comment on above: PATIENT WAS FASTINGP ERFORMED BY: [facility] Qjfimi8270 [address] Roadblin [place] [id number] Creatinine [Mass/Vol] 0.75 mg/dL Normal 0.57-1.00 [facility] prehensive Internal Medicine; [facility] Work Phone: Comment on above: PATIENT WAS FASTINGP ERFORMED BY: [facility] Yheynz6678 [address] Roadblin [place] [id number] GFR/1.73 sq M.predicted among non-blacks MDRD (S/P/Bld) [Vol rate/Area] 87 mL/min/{1.73_m2} Normal Comprehensiv e Internal Medicine; [facility] Work Phone: Comment on above: PATIENT WAS FASTINGP ERFORMED BY: [facility]6370 [address] Roadblin [place] [id number] Globulin (S) [Mass/Vol] 2.5 g/dL Normal 1.5-4.5 C omprehensive Internal Medicine; [facility] Work Phone: Comment on above: PATIENT WAS FASTINGP ERFORMED BY: LabAsc[facility]6[address] RoadDublin [place] [id number] Glucose [Mass/Vol] 98 mg/dL Normal 65-99 Compre hensive Internal Medicine; [facility] Work Phone: Comment on above: PATIENT WAS FASTINGP ERFORMED BY: [facility] Amydzv7383 [address] RoadDublin [place] [id number] Potassium [Moles/Vol] 4.2 mmol/L Normal 3.5-5.2 [facility] prehensive Internal Medicine; [facility] Work Phone: Comment on above: PATIENT WAS FASTINGP ERFORMED BY: LabColumbia Regional HospitalMrvqzc1771 [address] RoadDublin [place] [id number] Protein [Mass/Vol] 6.9 g/dL Normal 6.0-8.5 [facility] hensive [facility]; [facility] Work Phone: Comment on above: PATIENT WAS FASTINGP ERFORMED BY: [facility] Ajkndj8979 [address] RoadDublin [place] [id number] Sodium [Moles/Vol] 143 mmol/L Normal 134-144 [facility]ere hensive [facility]; [facility] Work Phone: Comment on above: PATIENT WAS FASTINGP ERFORMED BY: [facility] Grarqr2462 [address] RoadDublin [place] [id number] Urea nitrogen [Mass/Vol] 14 mg/dL Normal 8-27 [facility]; [facility] Work Phone: Comment on above: PATIENT WAS FASTINGP ERFORMED BY: CAMMIE Mcneil6370 [address] RoadDublin [place] [id number] Urea nitrogen/Creatinine [Mass ratio] 19 mg/mg Normal 12-28 [facility]; [facility] Work Phone: Comment on above: PATIENT WAS FASTINGP ERFORMED BY: CAMMIE Mcneil6370 [address] Roadblin [place] [id number] URINALYSIS, W/ MICRO ([id number]) Ordered By: Picking 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 Helper on 06-25-2022 Appearance (U) Clear Normal Comprehens ania Internal Medicine; [facility] Work Phone: Comment on above: PATIENT WAS FASTINGP ERFORMED BY: CAMMIE Jaja Johnsonlin6370 [address] RoadDublin [place] [id number] Bilirubin Ql (U) Negative Normal Comprehe nsive Internal Medicine; [facility] Work Phone: Comment on above: PATIENT WAS FASTINGP ERFORMED BY: CAMMIE Jaja Johnsonlin6370 [address]Dublin [place] [id number] Color (U) Yellow Normal [facility]; [facility] Work Phone: Comment on above: PATIENT WAS FASTINGP ERFORMED BY: CAMMIE Jaja Johnsonlin6370 [address] RoadDublin [place] [id number] Glucose Ql (U) Negative Normal Comprehens ania Internal Medicine; [facility] Work Phone: Comment on above: PATIENT WAS FASTINGP ERFORMED BY: CAMMIE Labmari Bdzpsi8647 [address] RoadDublin [place] [id number] Hemoglobin Ql (U) Negative Normal Compreh ensive Internal Medicine; [facility] Work Phone: Comment on above: PATIENT WAS FASTINGP ERFORMED BY: CAMMIE Labmari JohnsonEtpybd4952 [address] RoadDublin [place] [id number] Ketones Ql (U) Negative Normal Comprehens ania Internal [facility]; [facility] Work Phone: Comment on above: PATIENT WAS FASTINGP ERFORMED BY: CAMMIE Johnsonlin6370 [address] RoadDublin [place] [id number] Leukocyte esterase Test strip Ql (U) Trace Abnormal [facility]; [facility] Work Phone: Comment on above: PATIENT WAS FASTINGP ERFORMED BY: CAMMIE Mcneil6370 [address] RoadDublin [place] [id number] Microscopic observation LM Nom (Urine sed) See below: Normal [facility]; [facility] Work Phone: Comment on above: Microscopic was asif cated and was performed. PATIENT WAS FASTINGP ERFORMED BY: CAMMIE Labmari JohnsonIqqqif6156 [address] RoadDublin [place] [id number] Nitrite Ql (U) Negative Normal Comprehens ania Internal Medicine; [facility] Work Phone: Comment on above: PATIENT WAS FASTINGP ERFORMED BY: CAMMIE Johnsonlin6[address] [facility]in [place] [id number] pH (U) 6.5 [pH] Normal 5.0-7.5 [facility]; [facility] Work Phone: Comment on above: PATIENT WAS FASTINGP ERFORMED BY: CAMMIE Johnsonlin6370 [address] RoadAtrium Health Pinevillein [place] [id number] Protein Ql (U) Negative Normal Comprehens ania [facility]; [facility] Work Phone: Comment on above: PATIENT WAS FASTINGP ERFORMED BY: CAMMIE Johnsonlin6[address] [facility] [id number] Specific gravity (U) [Rel density] 1.006 1 Normal 1.005-1.030 [facility]; [facility] Work Phone: Comment on above: PATIENT WAS FASTINGP ERFORMED BY: CAMMIE Labmari JohnsonSmpukr5117 [address] [facility] [id number] Urobilinogen (U) [Mass/Vol] 0.2 mg/dL Normal 0.2-1.0 [facility]; [facility] Work Phone: Comment on above: PATIENT WAS FASTINGP ERFORMED BY: CAMMIE Mcneil6370 [facility] [id number] CBC WITH MANUAL DIFF ([id number]) Ordered By: Picking 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 Helper on 06-23-2021 Basophils (Bld) [#/Vol] 0.0 10*3/uL Normal 0.0-0.2 [facility]; [facility] Work Phone: Comment on above: PATIENT NOT FASTINGP ERFORMED BY: CAMMIE Johnsonlin6[address] [facility] [id number] Information: NURSE DRAW Basophils/100 WBC (Bld) 1 % Normal C omprehensive Internal Medicine; [facility] Work Phone: Comment on above: PATIENT NOT FASTINGP ERFORMED BY: CAMMIE Johnsonlin6370 [facility] [id number] Information: NURSE DRAW Eosinophils (Bld) [#/Vol] 0.1 10*3/uL Normal 0.0-0.4 [facility]; [facility] Work Phone: Comment on above: PATIENT NOT FASTINGP ERFORMED BY: CAMMIE Johnsonlin6370 [facility]vanNorth [facility] [id number] Information: NURSE DRAW Eosinophils/100 WBC (Bld) 3 % Normal [facility]; [facility] Work Phone: Comment on above: PATIENT NOT FASTINGP ERFORMED BY: CAMMIE Santos Jgybvz9590 [facility] [id number] Information: NURSE DRAW Erythrocyte distribution width (RBC) [Ratio] 12.0 % Normal 11.7-15.4 [facility]; [facility] Work Phone: Comment on above: PATIENT NOT FASTINGP ERFORMED BY: CAMMIE [facility] Zukzrn5055 [facility] [id number] Information: NURSE DRAW Hematocrit (Bld) [Volume fraction] 42.3 % Normal 34.0-46.6 [facility]; [facility] Work Phone: Comment on above: PATIENT NOT FASTINGP ERFORMED BY: CAMMIE [facility] Wixusn6934 [facility] [id number] Information: NURSE DRAW Hemoglobin (Bld) [Mass/Vol] 14.1 g/dL Normal 11.1-15.9 [facility]; [facility] Work Phone: Comment on above: PATIENT NOT FASTINGP ERFORMED BY: CAMMIE Santos Ekshsi3020 [facility] [id number] Information: NURSE DRAW Immature granulocytes (Bld) [#/Vol] 0.0 10*3/uL Normal 0.0-0.1 [facility]; [facility] Work Phone: Comment on above: PATIENT NOT FASTINGP ERFORMED BY: [address] [id number] Information: NURSE DRAW Immature granulocytes/100 WBC (Bld) 0 % Normal [facility]; [facility] Work Phone: Comment on above: PATIENT NOT FASTINGP ERFORMED BY: [address] [id number] Information: NURSE DRAW Lymphocytes (Bld) [#/Vol] 1.1 10*3/uL Normal 0.7-3.1 [facility]; [facility] Work Phone: Comment on above: PATIENT NOT FASTINGP ERFORMED BY: Sriram[address] [id number] Information: NURSE DRAW Lymphocytes/100 WBC (Bld) 28 % Normal [facility]; [facility] Work Phone: Comment on above: PATIENT NOT FASTINGP ERFORMED BY: [address] [id number] Information: NURSE DRAW MCH (RBC) [Entitic mass] 30.8 pg Normal 26.6-33.0 [facility]; [facility] Work Phone: Comment on above: PATIENT NOT FASTINGP ERFORMED BY: [address] [id number] Information: NURSE DRAW MCHC (RBC) [Mass/Vol] 33.3 g/dL Normal 31.5-35.7 [facility] prehensive Internal Medicine; [facility] Work Phone: Comment on above: PATIENT NOT FASTINGP ERFORMED BY: CAMMIE [address] [facility] [id number] Information: NURSE DRAW MCV (RBC) [Entitic vol] 92 fL Normal 79-97 [facility]ensive [facility]; [facility] Work Phone: Comment on above: PATIENT NOT FASTINGP ERFORMED BY: CAMMIE [facility]ezNorth [facility] Hospital [id number] Information: NURSE DRAW Monocytes (Bld) [#/Vol] 0.2 10*3/uL Normal 0.1-0.9 [facility]; [facility] Work Phone: Comment on above: PATIENT NOT FASTINGP ERFORMED BY: CAMMIE CortezNorth [facility] Hospital [id number] Information: NURSE DRAW Monocytes/100 WBC (Bld) 6 % Normal [facility]ensive [facility]; [facility] Work Phone: Comment on above: PATIENT NOT FASTINGP ERFORMED BY: CAMMIE CortezNorth [facility] Hospital [id number] Information: NURSE DRAW Neutrophils (Bld) [#/Vol] 2.4 10*3/uL Normal 1.4-7.0 [facility]; [facility] Work Phone: Comment on above: PATIENT NOT FASTINGP ERFORMED BY: CAMMIE Moody [facility] [id number] Information: NURSE DRAW Neutrophils/100 WBC (Bld) 62 % Normal [facility]; [facility] Work Phone: Comment on above: PATIENT NOT FASTINGP ERFORMED BY: CAMMIE Johnsonlin6370 [facility] [id number] Information: NURSE DRAW Platelets (Bld) [#/Vol] 206 10*3/uL Normal 150-450 [facility]; [facility] Work Phone: Comment on above: PATIENT NOT FASTINGP ERFORMED BY: CAMMIE [facility] Hqhxvf0047 [address] RoadDublin [place] [id number] Information: NURSE DRAW RBC (Bld) [#/Vol] 4.58 10*6/uL Normal 3.77-5.28 [facility]pr [facility] Internal [facility]; [facility] Work Phone: Comment on above: PATIENT NOT FASTINGP ERFORMED BY: CB [facility] Cyfygj7561 [address] RoadDublin [place] [id number] Information: NURSE DRAW WBC (Bld) [#/Vol] 3.8 10*3/uL Normal 3.4-10.8 [facility]pr [facility]; [facility] Work Phone: Comment on above: PATIENT NOT FASTINGP ERFORMED BY: CAMMIE Santosrp Kkmukb0456 [address] RoadDublin [place] [id number] Information: NURSE DRAW URINALYSIS ([id number])Ordered By : Picking 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 Helper on 06-23-2021 Appearance (U) Clear Normal Comprehens ania Internal [facility]; [facility] Work Phone: Comment on above: PATIENT NOT FASTINGP ERFORMED BY: CAMMIE [facility] Nalayg7310 [address] RoadDublin [place] [id number] Bilirubin Ql (U) Negative Normal Comprehe nsive Internal Medicine; [facility] Work Phone: Comment on above: PATIENT NOT FASTINGP ERFORMED BY: CAMMIE [facility] Njakia9994 [address] RoadDublin [place] [id number] Color (U) Yellow Normal [facility]; [facility] Work Phone: Comment on above: PATIENT NOT FASTINGP ERFORMED BY: CB [facility] Xmxavf3309 [address] RoadDublin [place] [id number] Glucose Ql (U) Negative Normal Comprehens ania Internal [facility]; [facility] Work Phone: Comment on above: PATIENT NOT FASTINGP ERFORMED BY: CAMMIE [facility] Qbeaiy3820 [address] RoadDublin [place] [id number] Hemoglobin Ql (U) Negative Normal Compreh ensive Internal Medicine; [facility] Work Phone: Comment on above: PATIENT NOT FASTINGP ERFORMED BY: CAMMIE Jaja Sdslmp2558 [address] Game InteractionAtrium Health Pinevillein [place] [id number] Ketones Ql (U) Negative Normal Comprehens ania [facility]; [facility] Work Phone: Comment on above: PATIENT NOT FASTINGP ERFORMED BY: CAMMIE Bernielaurita JohnsonViozke4104 [address] [facility] [id number] Leukocyte esterase Test strip Ql (U) Negative Normal [facility]; [facility] Work Phone: Comment on above: PATIENT NOT FASTINGP ERFORMED BY: CAMMIE SriramMari JohnsonHiemci9081 [address] [facility]in [place] [id number] Microscopic observation LM Nom (Urine sed) MICNIP Normal [facility]; [facility] Work Phone: Comment on above: Microscopic not asif cated and not performed. PATIENT NOT FASTINGP ERFORMED BY: CAMMIE SriramMari JohnsonTqccaz1447 [address] [facility] [id number] Nitrite Ql (U) Negative Normal Comprehens ania [facility]; [facility] Work Phone: Comment on above: PATIENT NOT FASTINGP ERFORMED BY: CAMMIE SriramMari JohnsonEzpipu1439 [address] [facility] [id number] pH (U) 6.5 [pH] Normal 5.0-7.5 [facility]; [facility] Work Phone: Comment on above: PATIENT NOT FASTINGP ERFORMED BY: CAMMIE SriramMari JohnsonNljnnf9257 [address] [facility] [id number] Protein Ql (U) Negative Normal Comprehens ania Internal [facility]; [facility] Work Phone: Comment on above: PATIENT NOT FASTINGP ERFORMED BY: CAMMIE SriramMari JohnsonTnxwsn8435 [address] [facility] [id number] Specific gravity (U) [Rel density] 1.005 1 Normal 1.005-1.030 [facility]; [facility] Work Phone: Comment on above: PATIENT NOT FASTINGP ERFORMED BY: CAMMIE [facility] Cxgifu6118 [facility] [id number] Urobilinogen (U) [Mass/Vol] 0.2 mg/dL Normal 0.2-1.0 [facility]; [facility] Work Phone: Comment on above: PATIENT NOT FASTINGP ERFORMED BY: CAMMIE [facility] Neqmfn6131 [facility] [id number] Vital Signs Date Time Vital Sign Value Performing Clinician Facility 06-21-2025 11:36-0400 Body weight 62.51 kg Ozzie Robertson Jr., MD Work Phone: [facility] 06-21-2025 11:36-0400 Diastolic blood pressure 82 mm[Hg] Ozzie Robertson Jr., MD Work Phone: [facility] 06-21-2025 11:36-0400 Heart rate 71 /min Ozzie Robertson Jr., MD Work Phone: [facility] 06-21-2025 11:36-0400 Respiratory rate 16 /min Ozzie Robertson Jr., MD Work Phone: [facility] 06-21-2025 11:36-0400 SaO2% (BldA) [Mass fraction] 97 % Ozzie Robertson Jr., MD Work Phone: [facility] 06-21-2025 11:36-0400 Systolic blood pressure 133 mm[Hg] Ozzie Robertson Jr., MD Work Phone: [facility] 05-20-2025 06:05-0400 Body height 165.[address] Rajat Norton DO Work Phone: [facility] 05-20-2025 06:05-0400 Body temperature 98.1 [degF] Dr. Rajat Norton DO Work Phone: [facility] 05-20-2025 06:05-0400 Diastolic blood pressure 60 mm[Hg] Dr. Rajat Norton DO Work Phone: [facility] 05-20-2025 06:05-0400 Heart rate 66 /min Dr. Rajat Norton DO Work Phone: [facility] 05-20-2025 06:05-0400 Respiratory rate 16 /min Dr. Rajat Norton DO Work Phone: [facility] 05-20-2025 06:05-0400 SaO2% (BldA) [Mass fraction] 96 % Dr. Rajat Norton DO Work Phone: [facility] 05-20-2025 06:05-0400 Systolic blood pressure 110 mm[Hg] Dr. Rajat Norton DO Work Phone: [facility] 05-19-2025 11:59-0400 Body temperature 98.5 [degF] Dr. Rajat Norton DO Work Phone: [facility] 05-19-2025 11:59-0400 Diastolic blood pressure 60 mm[Hg] Dr. Rajat Norton DO Work Phone: [facility] 05-19-2025 11:59-0400 Heart rate 60 /min Dr. Rajat Norton DO Work Phone: [facility] 05-19-2025 11:59-0400 Respiratory rate 14 /min Dr. Rajat Norton DO Work Phone: [facility] 05-19-2025 11:59-0400 SaO2% (BldA) [Mass fraction] 95 % Dr. Rajat Norton DO Work Phone: [facility] 05-19-2025 11:59-0400 Systolic blood pressure 112 mm[Hg] Dr. Rajat Norton DO Work Phone: [facility] 04-16-2025 06:36-0400 Body temperature 98.3 [degF] Dr. Rajat Norton DO Work Phone: [facility] 04-16-2025 06:36-0400 Diastolic blood pressure 62 mm[Hg] Dr. Rajat Norton DO Work Phone: [facility] 04-16-2025 06:36-0400 Heart rate 67 /min Dr. Rajat Norton DO Work Phone: [facility] 04-16-2025 06:36-0400 SaO2% (BldA) [Mass fraction] 98 % Dr. Rajat Norton DO Work Phone: [facility] 04-16-2025 06:36-0400 Systolic blood pressure 108 mm[Hg] Dr. Rajat Norton DO Work Phone: [facility] 02-12-2025 15:36-0400 Diastolic blood pressure 91 mm[Hg] Danni Adameer PA-C Work Phone: [facility] 02-12-2025 15:36-0400 Heart rate 62 /min Danni Galileo PA-C Work Phone: [facility] 02-12-2025 15:36-0400 SaO2% (BldA) [Mass fraction] 97 % Danni Adameer PA-C Work Phone: [facility] 02-12-2025 15:36-0400 Systolic blood pressure 146 mm[Hg] Danni Gurrola PA-C Work Phone: [facility] 01-29-2025 11:44-0500 Body height 165.[address] Rajat Norton DO Work Phone: [facility] 01-29-2025 11:44-0500 Body temperature 99.1 [degF] Dr. Rajat Norton DO Work Phone: [facility] 01-29-2025 11:44-0500 Diastolic blood pressure 92 mm[Hg] Dr. Rajat Norton DO Work Phone: [facility] 01-29-2025 11:44-0500 Heart rate 72 /min Dr. Rajat Norton DO Work Phone: [facility] 01-29-2025 11:44-0500 Respiratory rate 12 /min Dr. Rajat Norton DO Work Phone: [facility] 01-29-2025 11:44-0500 SaO2% (BldA) [Mass fraction] 98 % Dr. Rajat Norton DO Work Phone: [facility] 01-29-2025 11:44-0500 Systolic blood pressure 134 mm[Hg] Dr. Rajat Norton DO Work Phone: [facility] 11-02-2024 15:23-0500 Body weight 64.95 kg Ozzie Robertson Jr., MD Work Phone: [facility] 11-02-2024 15:23-0500 Diastolic blood pressure 81 mm[Hg] Ozzie Robertson Jr., MD Work Phone: [facility] 11-02-2024 15:23-0500 Heart rate 95 /min Ozzie Robertson Jr., MD Work Phone: [facility] 11-02-2024 15:23-0500 SaO2% (BldA) [Mass fraction] 96 % Ozzie Robertson Jr., MD Work Phone: [facility] 11-02-2024 15:23-0500 Systolic blood pressure 125 mm[Hg] Ozzie Robertson Jr., MD Work Phone: [facility] 05-04-2024 08:34-0400 Body weight 62.32 kg Ozzie Roberston Jr., MD Work Phone: [facility] 05-04-2024 08:34-0400 Diastolic blood pressure 76 mm[Hg] Ozzie Robertson Jr., MD Work Phone: [facility] 05-04-2024 08:34-0400 Heart rate 66 /min Ozzie Robertson Jr., MD Work Phone: [facility] 05-04-2024 08:34-0400 Respiratory rate 16 /min Ozzie Robertson Jr., MD Work Phone: [facility] 05-04-2024 08:34-0400 SaO2% (BldA) [Mass fraction] 95 % Ozzie Robertson Jr., MD Work Phone: [facility] 05-04-2024 08:34-0400 Systolic blood pressure 122 mm[Hg] Ozzie Robertson Jr., MD Work Phone: [facility] 12-30-2023 09:01-0500 Body weight 62.69 kg Ozzie Robertson Jr., MD Work Phone: [facility] 12-30-2023 09:01-0500 Diastolic blood pressure 72 mm[Hg] Ozzie Robertson Jr., MD Work Phone: [facility] 12-30-2023 09:01-0500 Heart rate 78 /min Ozzie Robertson Jr., MD Work Phone: [facility] 12-30-2023 09:01-0500 Respiratory rate 16 /min Ozzie Robertson Jr., MD Work Phone: [facility] 12-30-2023 09:01-0500 SaO2% (BldA) [Mass fraction] 97 % Ozzie Robertson Jr., MD Work Phone: [facility] 12-30-2023 09:01-0500 Systolic blood pressure 124 mm[Hg] Ozzie Robertson Jr., MD Work Phone: [facility] 12-27-2023 09:58-0500 Body height 165.[address] Rajat Norton Work Phone: [facility] 12-27-2023 09:58-0500 Body mass index (BMI) [Ratio] 22.6 kg/m2 Dr. Rajat Norton Work Phone: [facility] 12-27-2023 09:58-0500 Body temperature 98.4 [degF] Dr. Rajat Norton Work Phone: [facility] 12-27-2023 09:58-0500 Body weight 61.[address] Rajat Norton Work Phone: [facility] 12-27-2023 09:58-0500 Diastolic blood pressure 86 mm[Hg] Dr. Rajat Norton Work Phone: [facility] 12-27-2023 09:58-0500 Heart rate 69 /min Dr. Rajat Norton Work Phone: [facility] 12-27-2023 09:58-0500 Respiratory rate 16 /min Dr. Rajat Fast Work Phone: [facility] 12-27-2023 09:58-0500 SaO2% (BldA) [Mass fraction] 97 % Dr. Adams Fast Work Phone: [facility] 12-27-2023 09:58-0500 Systolic blood pressure 122 mm[Hg] Dr. Adams Fast Work Phone: [facility] 12-20-2023 15:02-0500 Body temperature 98.5 [degF] Dr. Adams Fast Work Phone: [facility] 12-20-2023 15:02-0500 Diastolic blood pressure 78 mm[Hg] Dr. Adams Fast Work Phone: [facility] 12-20-2023 15:02-0500 Heart rate 79 /min Dr. Adams Fast Work Phone: [facility] 12-20-2023 15:02-0500 Respiratory rate 12 /min Dr. Adams Fast Work Phone: [facility] 12-20-2023 15:02-0500 SaO2% (BldA) [Mass fraction] 97 % Dr. Adams Fast Work Phone: [facility] 12-20-2023 15:02-0500 Systolic blood pressure 116 mm[Hg] Dr. Rajat Norton Work Phone: [facility] 2023 10:29-0400 Body weight 63.05 kg Ozzie Robertson Jr., MD Work Phone: [facility] 2023 10:29-0400 Diastolic blood pressure 89 mm[Hg] Ozzie Robertson Jr., MD Work Phone: [facility] 2023 10:29-0400 Heart rate 64 /min Ozzie Robetrson Jr., MD Work Phone: [facility] 2023 10:29-0400 Respiratory rate 18 /min Ozzie Robertson Jr., MD Work Phone: [facility] 2023 10:29-0400 SaO2% (BldA) [Mass fraction] 96 % Ozzie Robertson Jr., MD Work Phone: [facility] 2023 10:29-0400 Systolic blood pressure 131 mm[Hg] Ozzie Robertson Jr., MD Work Phone: [facility] 07-12-2023 13:36-0400 [facility] Work Phone: 07-12-2023 13:36-0400 Body mass index (BMI) [Ratio] 24.44 kg/m2 [facility] Work Phone: 07-12-2023 13:36-0400 Body surface area Derived from formula 1.69 m2 [facility]; [facility] Work Phone: 07-12-2023 13:36-0400 Body temperature 98.7 [degF] [facility]; [facility] Work Phone: Comment on above: Method: Thermal Scan 07-12-2023 13:36-0400 Body weight 64.58 kg Tonie Langford [facility]; [facility] Work Phone: 07-12-2023 13:36-0400 Diastolic blood pressure 78 mm[Hg] [facility] Work Phone: Comment on above: Patient Position: Sitting; Cuff Location : Left Arm; Cuff Size: Standard 07-12-2023 13:36-0400 Heart rate 60 /min [facility]; [facility] Work Phone: Comment on above: Pattern: Regular 07-12-2023 13:36-0400 Respiratory rate 16 /min [facility]; [facility] Work Phone: Comment on above: Pattern: Unlabored 07-12-2023 13:36-0400 Systolic blood pressure 128 mm[Hg] Tonie Langford CMA [facility]; [facility] Work Phone: Comment on above: Patient Position: Sitting; Cuff Location : Left Arm; Cuff Size: Standard 04-20-2023 09:21-0400 Body height 167.[address] Rajat Norton Work Phone: [facility] 03-11-2023 08:50-0400 Body temperature 98 [degF] Dr. Rajat Norton Work Phone: [facility] 03-11-2023 08:50-0400 Diastolic blood pressure 74 mm[Hg] Dr. Rajat Norton Work Phone: [facility] 03-11-2023 08:50-0400 Heart rate 57 /min Dr. Rajat Norton Work Phone: [facility] 03-11-2023 08:50-0400 Respiratory rate 15 /min Dr. Adams Fast Work Phone: [facility] 03-11-2023 08:50-0400 SaO2% (BldA) [Mass fraction] 97 % Dr. Rajat Norton Work Phone: [facility] 03-11-2023 08:50-0400 Systolic blood pressure 102 mm[Hg] Dr. Rajat Norton Work Phone: [facility] 01-11-2023 13:06-0500 Body height 162.56 cm Tonie Langford CMA [...] 13:06-0500 Body temperature 97.4 [degF] Tonie Langford [facility]; [facility] Work Phone: Comment on above: Method: Thermal Scan 01-11-2023 13:06-0500 Body weight 64.58 kg Tonie Langford [facility]; [facility] Work Phone: 01-11-2023 13:06-0500 Diastolic blood pressure 78 mm[Hg] Tonie Langford [facility]; [facility] Work Phone: Comment on above: Patient Position: Sitting; Cuff Location : Left Arm; Cuff Size: Standard 01-11-2023 13:06-0500 Heart rate 79 /min Tonie Langford [facility]; [facility] Work Phone: Comment on above: Pattern: Regular 01-11-2023 13:06-0500 Respiratory rate 16 /min Tonie Langford [facility]; [facility] Work Phone: Comment on above: Pattern: Unlabored 01-11-2023 13:06-0500 SaO2% (BldA) [Mass fraction] 96 % Tonie Langford [facility]; [facility] Work Phone: Comment on above: Room air 01-11-2023 13:06-0500 Systolic blood pressure 118 mm[Hg] Tonie Langford [facility]; [facility] Work Phone: Comment on above: Patient Position: Sitting; Cuff Location : Left Arm; Cuff Size: Standard 07-09-2022 07:28-0400 [facility]; [facility] Work Phone: 07-09-2022 07:28-0400 Body mass index (BMI) [Ratio] 24.1 kg/m2 [facility]; [facility] Work Phone: 07-09-2022 07:28-0400 Body surface area Derived from formula 1.68 m2 [facility]; [facility] Work Phone: 07-09-2022 07:28-0400 Body temperature 97.1 [degF] [facility]; [facility] Work Phone: 07-09-2022 07:28-0400 Body weight 63.67 kg [facility]; [facility] Work Phone: 07-09-2022 07:28-0400 Diastolic blood pressure 80 mm[Hg] [facility]; [facility] Work Phone: Comment on above: Patient Position: Sitting; Cuff Location : Left Arm; Cuff Size: Standard 07-09-2022 07:28-0400 Heart rate 55 /min [facility]; [facility] Work Phone: Comment on above: Pattern: Regular 07-09-2022 07:28-0400 Respiratory rate 16 /min [facility]; [facility] Work Phone: Comment on above: Pattern: Unlabored 07-09-2022 07:28-0400 SaO2% (BldA) [Mass fraction] 95 % [facility] [facility]; [facility] Work Phone: Comment on above: Room air 07-09-2022 07:28-0400 Systolic blood pressure 122 mm[Hg] [facility]; [facility] Work [...] 13:33-0500 Body height 162.56 cm Tonie Langford [facility]; [facility] Work Phone: 12-29-2021 13:33-0500 Body mass index (BMI) [Ratio] 24.57 kg/m2 Tonie Langford [facility]; [facility] Work Phone: 12-29-2021 13:33-0500 Body surface area Derived from formula 1.7 m2 Tonie Langford [facility]; [facility] Work Phone: 12-29-2021 13:33-0500 Body temperature 96.9 [degF] Tonie Langford [facility]; [facility] Work Phone: Comment on above: Method: Thermal Scan 12-29-2021 13:33-0500 Body weight 64.92 kg Tonie Langford [facility]; [facility] Work Phone: 12-29-2021 13:33-0500 Diastolic blood pressure 78 mm[Hg] Tonie Langford [facility]; [facility] Work Phone: Comment on above: Patient Position: Sitting; Cuff Location : Left Arm; Cuff Size: Standard 12-29-2021 13:33-0500 Heart rate 60 /min Tonie Langford [facility]; [facility] Work Phone: Comment on above: Pattern: Regular 12-29-2021 13:33-0500 Respiratory rate 16 /min Tonie Langford [facility]; [facility] Work Phone: Comment on above: Pattern: Unlabored 12-29-2021 13:33-0500 Systolic blood pressure 120 mm[Hg] Tonie Langford [facility]; [facility] Work Phone: Comment on above: Patient Position: Sitting; Cuff Location : Left Arm; Cuff Size: Standard 07-14-2021 10:55-0400 Body height 162.56 cm Tonie Langford [facility]; [facility] Work Phone: 07-14-2021 10:55-0400 Body mass index (BMI) [Ratio] 24.05 kg/m2 Tonie Langford [facility]; [facility] Work Phone: 07-14-2021 10:55-0400 Body surface area Derived from formula 1.68 m2 Tonie Langford [facility]; [facility] Work Phone: 07-14-2021 10:55-0400 Body temperature 97.1 [degF] Tonie Langford [facility]; [facility] Work Phone: Comment on above: Method: Thermal Scan 07-14-2021 10:55-0400 Body weight 63.56 kg Tonie Langford [facility]; [facility] Work Phone: 07-14-2021 10:55-0400 Diastolic blood pressure 82 mm[Hg] Tonie Langford [facility]; [facility] Work Phone: Comment on above: Patient Position: Sitting; Cuff Location : Left Arm; Cuff Size: Standard 07-14-2021 10:55-0400 Heart rate 83 /min Tonie Langford [facility]; [facility] Work Phone: Comment on above: Pattern: Regular 07-14-2021 10:55-0400 Respiratory rate 16 /min Tonie Langford [facility]; [facility] Work Phone: Comment on above: Pattern: Unlabored 07-14-2021 10:55-0400 Systolic blood pressure 120 mm[Hg] Tonie Langford [facility]; [facility] Work Phone: Comment on above: Patient Position: Sitting; Cuff Location : Left Arm; Cuff Size: Standard 06-09-2021 08:06-0400 Body height 162.56 cm Tonie Langford [facility]; [facility] Work Phone: 06-09-2021 08:06-0400 Body mass index (BMI) [Ratio] 24.03 kg/m2 Tonie Langford [facility]; [facility] Work Phone: 06-09-2021 08:06-0400 Body surface area Derived from formula 1.68 m2 Tonie Langford [facility]; [facility] Work Phone: 06-09-2021 08:06-0400 Body temperature 96.9 [degF] Tonie Langford [facility]; [facility] Work Phone: Comment on above: Method: Thermal Scan 06-09-2021 08:06-0400 Body weight 63.5 kg Tonie Langford [facility]; [facility] Work Phone: 06-09-2021 08:06-0400 Diastolic blood pressure 64 mm[Hg] Tonie Langford [facility]; [facility] Work Phone: Comment on above: Patient Position: Sitting; Cuff Location : Left Arm; Cuff Size: Standard 06-09-2021 08:06-0400 Respiratory rate 16 /min Tonie Langford [facility]; [facility] Work Phone: Comment on above: Pattern: Unlabored 06-09-2021 08:06-0400 Systolic blood pressure 122 mm[Hg] Tonie Langford [facility]; [facility] Work Phone: Comment on above: Patient Position: Sitting; Cuff Location : Left Arm; Cuff Size: Standard 05-07-2021 07:41-0400 Body height 162.56 cm [facility]; [facility] Work Phone: 05-07-2021 07:41-0400 Body mass index (BMI) [Ratio] 24.37 kg/m2 [facility]; [facility] Work Phone: 05-07-2021 07:41-0400 Body surface area Derived from formula 1.69 m2 [facility]; [facility] Work Phone: 05-07-2021 07:41-0400 Body temperature 96.9 [degF] [facility]; [facility] Work Phone: Comment on above: Method: Thermal Scan 05-07-2021 07:41-0400 Body weight 64.41 kg [facility]; [facility] Work Phone: 05-07-2021 07:41-0400 Diastolic blood pressure 74 mm[Hg] [facility]; [facility] Work Phone: Comment on above: Patient Position: Sitting; Cuff Location : Left Arm; Cuff Size: Standard 05-07-2021 07:41-0400 Heart rate 59 /min [facility]; [facility] Work Phone: Comment on above: Pattern: Regular 05-07-2021 07:41-0400 Respiratory rate 16 /min [facility]; [facility] Work Phone: Comment on above: Pattern: Unlabored 05-07-2021 07:41-0400 SaO2% (BldA) [Mass fraction] 96 % [facility]; [facility] Work Phone: Comment on above: Room air 05-07-2021 07:41-0400 Systolic blood pressure 120 mm[Hg] [facility]; [facility] Work Phone: Comment on above: Patient Position: Sitting; Cuff Location : Left Arm; Cuff Size: Standard 12-08-2020 14:08-0500 BMI (Body Mass Index) 24.37 kg/m2 [facility]; [facility] Work Phone: 12-08-2020 14:08-0500 Body weight 64.41 kg [facility]; [facility] Work Phone: 12-08-2020 14:08-0500 BSA (Body Surface Area) 1.69 m2 [facility]; [facility] Work Phone: 12-08-2020 14:08-0500 Height 162.56 cm [facility]; [facility] Work Phone: 08-20-2020 11:39-0400 BMI (Body Mass Index) 24.37 kg/m2 Tatiana Thompson [facility] Work Phone: 08-20-2020 11:39-0400 Body Temperature 97.3 [degF] Tatiana Thompson [facility] Work Phone: Comment on above: Method: Infrared 08-20-2020 11:39-0400 Body weight 64.41 kg Tatiana Thompson [facility] Work Phone: 08-20-2020 11:39-0400 BP Diastolic 88 mm[Hg] Tatiana Thompson [facility] Work Phone: Comment on above: Patient Position: Sitting; Cuff Location : Left Arm; Cuff Size: Standard 08-20-2020 11:39-0400 BP Systolic 128 mm[Hg] Tatiana Thompson [facility] Work Phone: Comment on above: Patient Position: Sitting; Cuff Location : Left Arm; Cuff Size: Standard 08-20-2020 11:39-0400 BSA (Body Surface Area) 1.69 m2 Tatiana Thompson [facility] Work Phone: 08-20-2020 11:39-0400 Height 162.56 cm Tatiana Thompson [facility] Work Phone: 08-20-2020 11:39-0400 Pulse (Heart Rate) 60 /min Tatiana Thompson [facility] Work Phone: Comment on above: Pattern: Regular 08-20-2020 11:39-0400 Pulse Oximetry 97 % Dee Alvarez [facility] Medicine Work Phone: Comment on above: Room air 08-20-2020 11:39-0400 Respiratory Rate 18 /min Tatiana Thompson [facility] Work Phone: Comment on above: Pattern: Unlabored 08-20-2020 11:39-0400 SaO2% (BldA) [Mass fraction] 97 % Tatiana Thompson [facility]; [facility] Work Phone: Comment on above: Room air 04-04-2020 11:47-0400 BMI (Body Mass Index) 24.89 kg/m2 Tatiana Thompson CMA [facility] Work Phone: 04-04-2020 11:47-0400 Body Temperature 97 [degF] Tatiana Thompson CMA [facility] Medicine Work Phone: Comment on above: Method: Temporal 04-04-2020 11:47-0400 Body weight 65.77 kg Tatiana Thompson [facility] Work Phone: 04-04-2020 11:47-0400 BP Diastolic 88 mm[Hg] Tatiana Thompson CMA [facility] Work Phone: Comment on above: Patient Position: Sitting; Cuff Location : Left Arm; Cuff Size: Standard 04-04-2020 11:47-0400 BP Systolic 126 mm[Hg] Tatiana Thompson [employer] [facility] Work Phone: Comment on above: Patient Position: Sitting; Cuff Location : Left Arm; Cuff Size: Standard 04-04-2020 11:47-0400 BSA (Body Surface Area) 1.71 m2 Tatiana Thompson [facility] Work Phone: 04-04-2020 11:47-0400 Height 162.56 cm Tatiana Thompson [facility] Work Phone: 04-04-2020 11:47-0400 Pulse (Heart Rate) 56 /min Tatiana Thompson [facility] Work Phone: Comment on above: Pattern: Regular 04-04-2020 11:47-0400 Pulse Oximetry 95 % Dee Antonio [facility] Internal Medicine Work Phone: Comment on above: Room air 04-04-2020 11:47-0400 Respiratory Rate 18 /min Tatiana Thompson [facility] Work Phone: Comment on above: Pattern: Unlabored 04-04-2020 11:47-0400 SaO2% (BldA) [Mass fraction] 95 % Tatiana Thompson [facility]; [facility] Work Phone: Comment on above: Room air 08-10-2016 13:56-0400 BMI (Body Mass Index) 24.89 kg/m2 Karime Slarb [employer] [facility] Work Phone: 08-10-2016 13:56-0400 Body Temperature 98.4 [degF] Karime Slarb [employer] [facility] Work Phone: 08-10-2016 13:56-0400 Body weight 65.77 kg Karime Slarb [employer] [facility] Work Phone: 08-10-2016 13:56-0400 BP Diastolic 76 mm[Hg] Karime Slarb [employer] [facility] Work Phone: Comment on above: Patient Position: Sitting; Cuff Location : Left Arm; Cuff Size: Standard 08-10-2016 13:56-0400 BP Systolic 118 mm[Hg] Karime Slarb PAPER REELER [facility] Work Phone: Comment on above: Patient Position: Sitting; Cuff Location : Left Arm; Cuff Size: Standard 08-10-2016 13:56-0400 BSA (Body Surface Area) 1.71 m2 Karime Slarb PAPER REELER [facility] Work Phone: 08-10-2016 13:56-0400 Height 162.56 cm Karime Slarb PAPER REELER [facility] Work Phone: 08-10-2016 13:56-0400 Pulse (Heart Rate) 55 /min Karime Kathyrb PAPER REELER [facility] Work Phone: Comment on above: Pattern: Regular 08-10-2016 13:56-0400 Pulse Oximetry 97 % Dee Alvarez [facility] Work Phone: Comment on above: Room air 08-10-2016 13:56-0400 Respiratory Rate 16 /min Karime Slarb PAPER REELER [facility] Work Phone: Comment on above: Pattern: Unlabored 08-10-2016 13:56-0400 SaO2% (BldA) [Mass fraction] 97 % Karime Slarb PAPER REELER [facility]; [facility] Work Phone: Comment on above: Room air 08-07-2015 12:01-0400 BMI (Body Mass Index) 23.86 kg/m2 Lovely Andrea [email or web address] Internal Medicine Work Phone: 08-07-2015 12:01-0400 Body Temperature 97.8 [degF] Lovely Andrea [facility] Internal Medicine Work Phone: 08-07-2015 12:01-0400 Body weight 63.05 kg Lovely Andrea [facility] Internal Medicine Work Phone: 08-07-2015 12:01-0400 BP Diastolic 72 mm[Hg] Lovely Andrea [facility] Internal Medicine Work Phone: Comment on above: Patient Position: Sitting; Cuff Location : Left Arm; Cuff Size: Standard 08-07-2015 12:01-0400 BP Systolic 112 mm[Hg] Lovely Andrea [facility] Internal Medicine Work Phone: Comment on above: Patient Position: Sitting; Cuff Location : Left Arm; Cuff Size: Standard 08-07-2015 12:01-0400 BSA (Body Surface Area) 1.68 m2 Lovely Goodwintavon [facility] Internal Medicine Work Phone: 08-07-2015 12:01-0400 Height 162.56 cm Lovely Andrea [facility] Internal Medicine Work Phone: 08-07-2015 12:01-0400 Pulse (Heart Rate) 62 /min Lovely Andrea [facility] Internal Medicine Work Phone: Comment on above: Pattern: Regular 08-07-2015 12:01-0400 Pulse Oximetry 97 % Dee Alvarez [facility] Internal Medicine Work Phone: Comment on above: Room air 08-07-2015 12:01-0400 Respiratory Rate 16 /min Lovely Goodwintavon [facility] Internal Medicine Work Phone: Comment on above: Pattern: Unlabored 08-07-2015 12:01-0400 SaO2% (BldA) [Mass fraction] 97 % Lovely Fldavina [facility] Internal Medicine; [facility] Work Phone: Comment on above: Room air 07-22-2015 10:20-0400 BMI (Body Mass Index) 23.86 kg/m2 [facility] Internal [facility] Work Phone: 07-22-2015 10:20-0400 Body Temperature 98.2 [degF] Lovely Andrea [facility] Internal Medicine Work Phone: Comment on above: Method: Oral 07-22-2015 10:20-0400 Body weight 63.05 kg Lovely Andrea [facility] Internal Medicine Work Phone: 07-22-2015 10:20-0400 BP Diastolic 76 mm[Hg] Lovely Andrea [facility] Internal Medicine Work Phone: Comment on above: Patient Position: Sitting; Cuff Location : Left Arm; Cuff Size: Standard 07-22-2015 10:20-0400 BP Systolic 104 mm[Hg] Lovely Andrea [facility] Internal Medicine Work Phone: Comment on above: Patient Position: Sitting; Cuff Location : Left Arm; Cuff Size: Standard 07-22-2015 10:20-0400 BSA (Body Surface Area) 1.68 m2 Lovely Andrea [facility] Internal Medicine Work Phone: 07-22-2015 10:20-0400 Height 162.56 cm Lovely Andrea [facility] Internal Medicine Work Phone: 07-22-2015 10:20-0400 Pulse (Heart Rate) 52 /min Lovely Andrea [facility] e Internal Medicine Work Phone: Comment on above: Pattern: Regular 07-22-2015 10:20-0400 Respiratory Rate 16 /min Lovely Andrea [facility] Internal Medicine Work Phone: Comment on above: Pattern: Unlabored 03-25-2014 09:45-0400 BMI (Body Mass Index) 24.18 kg/m2 Lovely Andrea [facility] [[email or web address] Internal Medicine Work Phone: 03-25-2014 09:45-0400 Body Temperature 97.4 [degF] Lovely Andrea [facility] Internal Medicine Work Phone: 03-25-2014 09:45-0400 Body weight 64.41 kg Lovely Andrea [facility] Internal Medicine Work Phone: 03-25-2014 09:45-0400 BP Diastolic 72 mm[Hg] Lovely Andrea [facility] Internal Medicine Work Phone: Comment on above: Patient Position: Sitting; Cuff Location : Left Arm; Cuff Size: Large 03-25-2014 09:45-0400 BP Systolic 112 mm[Hg] Lovely Andrea [facility] Internal Medicine Work Phone: Comment on above: Patient Position: Sitting; Cuff Location : Left Arm; Cuff Size: Large 03-25-2014 09:45-0400 BSA (Body Surface Area) 1.7 m2 Lovely Andrea [facility] Internal Medicine Work Phone: 03-25-2014 09:45-0400 Height 163.19 cm Lovely Andrea [facility] Internal Medicine Work Phone: 03-25-2014 09:45-0400 Pulse (Heart Rate) 48 /min Lovely Andrea [facility] Internal Medicine Work Phone: Comment on above: Pattern: Regular 03-25-2014 09:45-0400 Respiratory Rate 16 /min Lovely Andrea [facility] Internal Medicine Work Phone: Comment [...] 08:44-0400 Body Temperature 98.2 [degF] KANDACE Sandhu [facility] Internal Medicine Work Phone: Comment on above: Method: Oral 08-25-2010 08:44-0400 Body weight 63.96 kg KANDACE Sandhu PAPER REELER [facility] Internal Medicine Work Phone: 08-25-2010 08:44-0400 BP Diastolic 70 mm[Hg] KANDACE Sandhu [facility] Internal Medicine Work Phone: Comment on above: Patient Position: Sitting; Cuff Location : Left Arm; Cuff Size: Standard 08-25-2010 08:44-0400 BP Systolic 118 mm[Hg] KANDACE Sandhu [facility] Internal Medicine Work Phone: Comment on above: Patient Position: Sitting; Cuff Location : Left Arm; Cuff Size: Standard 08-25-2010 08:44-0400 Pulse (Heart Rate) 64 /min KANDACE Sandhu [facility] Internal Medicine Work Phone: Comment on above: Pattern: Regular 08-25-2010 08:44-0400 Respiratory Rate 18 /min KANDACE Sandhu [facility] Internal Medicine Work Phone: Comment on [...] 08:06-0400 Body Temperature 97.9 [degF] Dee Alvarez [facility] Internal Medicine Work Phone: Comment on above: Method: Oral 08-17-2007 08:06-0400 Body weight 0 kg Dee Alvarez [facility] Internal Medicine Work Phone: 08-17-2007 08:06-0400 BP Diastolic 90 mm[Hg] Dee Alvarez [facility] Work Phone: Comment on above: Patient Position: Sitting; Cuff Location : Right Arm; Cuff Size: Standard 08-17-2007 08:06-0400 BP Systolic 130 mm[Hg] Dee Alvarez [facility] Internal Medicine Work Phone: Comment on above: Patient Position: Sitting; Cuff Location : Right Arm; Cuff Size: Standard 08-17-2007 08:06-0400 Head Circumference 0 cm Dee Alvarez [facility] Work Phone: 08-17-2007 08:06-0400 Head Occipital-frontal circumference 0 cm Dee Alvarez DO Work Phone: [facility]; [facility] Work Phone: 08-17-2007 08:06-0400 Height 0 cm Dee Alvarez [facility] Internal Medicine Work Phone: 08-17-2007 08:06-0400 Pulse (Heart Rate) 72 /min Dee Alvarez [facility] Internal Medicine Work Phone: Comment on above: Pattern: Regular 08-17-2007 08:06-0400 Respiratory Rate 16 /min Dee Alvarez [facility] Internal Medicine Work Phone: Comment on above: Pattern: Unlabored 09-01-2006 15:38-0400 Body Temperature 98.2 [degF] Dee Alvarez [facility] Internal Medicine Work Phone: Comment on above: Method: Undefined 09-01-2006 15:38-0400 Body weight 0 kg Dee Alvarez [facility] Internal Medicine Work Phone: 09-01-2006 15:38-0400 BP Diastolic 74 mm[Hg] Dee Alvarez [facility] Internal Medicine Work Phone: Comment [...] Date Encounter Type Care Provider Facility Start: 07-12-2025 ambulatory Rajat Fast Facility:[facility] Start: 07-05-2025 End: 07-05-[address] Rajat Norton DO Work Phone: -Laboratory Start: 07-05-2025 End: 07-05-[address] Rajat Norton DO -Laboratory Work Phone: Start: 07-05-2025 End: 07-05-2025 ambulatory Rajat Fast Facility:[facility] Start: 06-25-2025 End: 06-25-2025 Telephone encounter Ozzie [...] loss Start: 06-21-2025 End: 06-21-2025 ambulatory RAJAT A FAST Facility:[facility] Start: 06-04-2025 End: 06-04-[address] Rajat Norton DO Work Phone: -Outpatient Breast Imaging Start: 06-04-2025 End: 06-04-[address] Rajat Norton DO -Outpatient Breast Imaging Work Phone: Start: 06-04-2025 End: 06-04-2025 ambulatory Rajat [facility] Facility:[facility] Start: 05-28-2025 End: 05-28-[address] Rajat Norton DO -Radiology [facility] Work Phone: Start: 05-28-2025 End: 05-28-[address] Rajat Norton DO Work Phone: -Radiology [facility] Start: 05-28-2025 Non-patient / Non-visit [facility] Fisher [facility] Work Phone: Start: 05-28-2025 End: 05-28-2025 ambulatory Rajat Norton Facility:[facility] Start: 05-20-2025 End: 05-20-2025 Patient encounter procedure Juan Miller [facility] Work Phone: Start: 05-20-2025 End: 05-20-[address] Rajat Norton DO Work Phone: [facility] Work Phone: Start: 05-19-2025 End: 05-19-2025 Patient encounter procedure Chidi Dale MERCHANDISE CLERKBubbaC -[facility] Work Phone: Start: 05-19-2025 End: 05-19-[address] Rajat Norton DO Work Phone: [facility] Work Phone: Start: 05-02-2025 Registered [facility] -Laboratory Work Phone: Start: 05-02-2025 End: 05-02-[address] Rajat Norton DO Work Phone: [facility] Work Phone: Start: 05-02-2025 End: 05-02-[address] Rajat Norton DO -Laboratory Work Phone: Start: 05-02-2025 End: 05-02-2025 ambulatory Rajat Fast Facility:[facility] Start: 04-16-2025 End: 04-16-2025 Patient encounter procedure Juan Miller PA -[facility] Work Phone: Start: 04-16-2025 End: 04-16-[address] Rajat Norton DO Work Phone: [facility] Work Phone: Start: 03-13-2025 End: 03-13-[address] Rajat Norton DO Work Phone: [facility] Work Phone: Start: 03-13-2025 End: 03-13-[address] Rajat Norton DO -[facility] Work Phone: Start: 03-13-2025 End: 03-13-2025 ambulatory Rajat Fast Facility:[facility] Start: 02-12-2025 End: 02-12-2025 Patient encounter procedure Danni Gurrola PA-C Work Phone: Neurology Comment on above: Dementia without beh avioral disturbance, psychotic disturbance, mood disturbance, or anxiety, unspecified dementia severity, unspecified dementia type (HCC) (Primary Dx); Cognitive decline; Memory loss Start: 02-12-2025 End: 02-12-2025 ambulatory RAJAT A FAST Facility:[facility] Start: 01-29-2025 End: 01-29-2025 Patient encounter procedure Juan Miller PA -[facility] Work Phone: Start: 01-29-2025 End: 01-29-2025 ambulatory Rajat Fast Facility:[facility] Start: 01-24-2025 End: 01-24-2025 Telephone encounter Ozzie Robertson MD Work Phone: Neurology Comment on above: Patient Question; Pa tient Update Start: 01-17-2025 End: 01-17-[address] Rajat Norton DO -Laboratory Work Phone: Start: 01-17-2025 End: 01-17-2025 ambulatory Rajat Fast Facility:[facility] Start: 12-25-2024 End: 12-25-2024 Telephone encounter Ozzie Robertson MD Work Phone: [facility] Comment on above: Medication Question Start: 11-23-2024 End: 11-23-2024 Telephone encounter Ozzie Robertson MD Work Phone: Neurology Comment on above: Patient Question Start: 11-02-2024 End: 11-02-2024 Patient encounter procedure Ozzie Robertson MD Work Phone: Neurology Comment on above: Cognitive decline (P rimary Dx); Memory loss Start: 11-02-2024 End: 11-02-2024 ambulatory RAJAT A FAST Facility:[facility] Start: 09-20-2024 ambulatory Rajat Fast Facility:[facility] Start: 09-20-2024 End: 09-20-2024 ambulatory Rajat Fast Facility:[facility] Start: 07-31-2024 End: 07-31-2024 Refill Ozzie Robertson MD Work Phone: [facility] Comment on above: Refill Request Start: 07-24-2024 End: 07-24-2024 ambulatory Rajat Fast Facility:[facility] Start: 05-04-2024 End: 05-04-2024 Patient encounter procedure Ozzie Robertson MD Work Phone: Neurology Comment on above: Cognitive decline (P rimary Dx); Memory loss Start: 04-06-2024 Refill Ozzie patterson MD Work Phone: Neurology Comment on above: Refill Request Start: 03-22-2024 End: 03-22-[address] Rajat Norton Work Phone: [facility] Work Phone: Start: 03-22-2024 End: 03-22-[address] [facility] Start: 03-22-[address] [facility] Start: 01-31-2024 Telephone encounter Ozzie Robertson MD Work Phone: Neurology Comment on above: Patient Question Start: 12-30-2023 End: 12-30-2023 Patient encounter procedure Ozzie Robertson MD Work Phone: Neurology Comment on above: Cognitive decline (P rimary Dx); Memory loss Start: 12-27-2023 End: 12-27-[address] Rajat Norton Work Phone: [facility] Work Phone: Start: 12-27-2023 End: 12-27-[address] Rajat Norton Work Phone: [facility] Work Phone: Start: 12-20-2023 End: 12-20-[address] Rajat Norton Work Phone: [facility] Work Phone: Start: 12-09-2023 End: 12-09-[address] Rajat Norton Work Phone: [facility] Work Phone: Start: 12-09-2023 End: 12-09-[address] Rajat Norton Work Phone: [facility]-Physical Therapy Work Phone: Start: 12-09-[address] Rajat Norton Work Phone: [facility]-Physical Therapy Work Phone: Start: 11-14-2023 Telephone encounter Danni decker PA-C Work Phone: Neurology Start: 11-10-2023 Telephone encounter Danni decker PA-C Work Phone: Neurology Comment on above: Patient Update; Fátima ent Question Start: 10-11-2023 Telephone encounter Danni decker PA-C Work Phone: [facility] Comment on above: prior authorization Start: 10-04-2023 Telephone encounter Ozzie Robertson MD Work Phone: [facility] Comment on above: Results Start: 10-04-2023 End: 10-04-2023 Subsequent hospital visit by physician [facility] Ws (I-Stat/1.5t) Work Phone: Radiology Comment on above: Memory loss [R41.3] Start: 09-15-[address] Rajat Norton Work Phone: [facility] Start: 2023 End: 2023 Patient encounter procedure Ozzie Robertson MD Work Phone: Neurology Comment on above: Memory loss (Primary Dx); Cognitive decline Start: 07-25-2023 End: 07-25-2023 ambulatory [facility] Work Phone: Start: 07-25-2023 End: 07-25-2023 Patient encounter procedure [facility]-MRI - [facility] Work Phone: Start: 07-13-2023 End: 07-13-2023 Phone Encounter Rajat Norton DO Work Phone: [facility] Start: 07-12-2023 End: 07-12-2023 ambulatory [facility] Work Phone: Start: 07-12-2023 End: 07-12-2023 Patient encounter procedure [facility]-Radiology, [facility] Work Phone: Start: 07-12-2023 End: 07-17-2023 Office outpatient visit 15 minutes Rajat Norton DO Work Phone: [facility] Start: 07-12-2023 Review Rajat Norton DO Work Phone: [facility] Start: 07-05-2023 End: 07-05-[address] Rajat Norton Work Phone: [facility] Work Phone: Start: 07-05-2023 End: 07-05-[address] Rajat Norton Work Phone: [facility]-Physical Therapy Work Phone: Start: 06-08-2023 Telephone encounter Neurology Provid er Neurology Comment on above: Appointment Start: 04-20-2023 End: 04-20-[address] Rajat Norton Work Phone: [facility] Work Phone: Start: 04-20-2023 End: 04-20-[address] Rajat Norton Work Phone: [facility]-Outpatient Bone Densitometry Start: 03-11-2023 End: 03-11-[address] Rajat Norton Work Phone: [facility] Start: 02-08-2023 End: 02-08-[address] Rajat Norton Work Phone: [facility] Gastroenterology Start: 01-26-[address] Rajat Norton Work Phone: [facility]-Cardiovascular Services Start: 01-11-2023 ambulatory Rajat Norton DO Compreh ensive Internal Med Start: 01-11-2023 End: 01-11-2023 Office outpatient visit 25 minutes Rajat Norton DO Work Phone: [facility] Start: 01-07-2023 End: 01-07-2023 ambulatory [facility] Work Phone: Start: 01-07-2023 End: 01-07-2023 Patient encounter procedure [facility]-Laboratory Start: 12-21-2022 End: 12-21-2022 Phone Encounter Rajat Norton DO Work Phone: [facility] Start: 07-09-2022 End: 07-09-2022 Office outpatient visit 5 minutes Rajat Norton DO Work Phone: [facility] [...] [facility] Start: 05-07-2021 Review Dee Rangelevelyn n DO Work Phone: [facility] Start: 04-15-2021 End: 04-15-2021 Phone Encounter Dee Antonio DO Work Phone: [facility] Start: 01-30-2021 End: 01-30-2021 Annotation/Addendum Dee Alvarez [facility] Start: 12-08-2020 End: 12-08-2020 Office outpatient visit 10 minutes Dee Alvarez [facility] Start: 08-20-2020 End: 08-20-2020 Office outpatient visit 15 minutes Dee Alvarez [facility] Start: 08-01-2020 End: 08-01-2020 Annotation/Addendum Dee Alvarez [facility] Start: 07-25-2020 End: 07-25-2020 Annotation/Addendum Dee Alvarez [facility] Start: 04-04-2020 End: 04-04-2020 Patient encounter status Rajat Fast DO Work Phone: [facility] Start: 04-04-2020 End: 04-04-2020 Periodic preventive med est patient 65yrs& older Dee Alvarez [facility] Start: 08-12-2017 End: 08-12-2017 Lab Order Dee Alvarez [facility] Start: 08-10-2016 End: 08-10-2016 Periodic preventive med est patient 40-64yrs Dee Alvarez [facility] Start: 09-01-2015 End: 09-01-2015 Phone Encounter Dee Alvarez [facility] Start: 09-01-2015 End: 09-01-2015 Physical [...] End: 04-11-2008 Historical Summary Deedirk Alvarez [facility] Start: 04-10-2008 End: 04-10-2008 Office outpatient visit 25 minutes Dee Alvarez [facility] Start: 01-23-2008 End: 01-23-2008 Patient encounter procedure Dee Alvarez [facility] Start: 08-17-2007 End: 08-17-2007 Patient encounter procedure Dee Alvarez [facility] Start: 09-01-2006 End: 09-01-2006 Patient encounter procedure Dee Alvarez [facility] Patient encounter status Disha Carnes LPN [facility]; [facility] Work Phone: Patient encounter status Tonie Langford CMA [facility]; [facility] Work Phone: Patient encounter status Tonie Langford [facility]; [facility] Work Phone: Patient encounter status Tonie Langford [facility]; [facility] Work Phone: Patient encounter status Raheem Fuentes [facility]; [facility] Work Phone: Patient encounter status Tonie Langford [facility]; [facility] Work Phone: Patient encounter status Tonie Langford [facility]; [facility] Work Phone: Physical examination [facility] prehensive Internal Medicine; [facility] Work Phone: Physical examination Tonie Jean-Baptistejosephleonardo [facility]; [facility] Work Phone: Physical examination Tonie Langford [facility]; [facility] Work Phone: Physical examination Tonie Jean-Baptistemaurisio [facility]; [facility] Work Phone: Physical examination Fritzrosette Avoca [facility] C omprehensive Internal Medicine; [facility] Work Phone: Physical examination Tonie Langford [facility]; [facility] Work Phone: Physical examination Tonie Langford [facility]; [facility] Work Phone: Procedures Date Procedure Procedure Detail Performing Clinician Start: 07-05-[address] Rajat Norton DO Work Phone: Start: 07-05-2025 Serum inorganic phosphate measurement Dr[address] Rajat Norton DO Work Phone: Start: 07-05-2025 Vitamin D, 25-hydroxy measurement Dr. Rajat Norton DO Work Phone: Comment on above: Vitamin D StatusDeficiency: <20 ng/mL (5 0nmol/L)Insufficiency: 20-30 ng/mL (50-75 nmol/L)Sufficiency: 30-100 ng/mL (75-250 nmol/L)Toxicity: >100 ng/mL (>250 nmol/L) Start: 06-04-2025 Dual energy X-ray absorptiometry Dr. Rajat Norton DO Work Phone: Start: 06-04-[address] Rajat Norton DO Work Phone: Start: 05-28-2025 X-ray of chest, PA and lateral views Dr. Rajat Norton DO Work Phone: Start: 05-02-2025 Serum inorganic phosphate measurement Dr. Rajat Norton DO Work Phone: Start: 05-02-2025 Urnls dip stick/tablet reagent auto microscopy Dr. Rajat Norton DO Work Phone: Start: 05-02-2025 Vitamin D, 25-hydroxy measurement Dr. Rajat Norton [...] 2 Views Procedure Note: See Note; NOTES: [facility] Imaging Services [address] [place] [address] Shoulder min 2 Views MR#: [id number] Acct: [id number] Name: ERIN DYSON Rep #: [id number] : 1955 F 67 From: Won Daniels PCP: Dr. Rajat Norton DO Status: REG CLI Study: Shoulder min 2 Views Date of Exam: 07/12/23 Exam# [id number] Ordering Dr: Rajat Norton DO EXAM: XR [...] EDT , CC: Dr. 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 Rajat Norton DO Work Phone: Start: 07-05-2023 End: 07-05-2023 PT D/C Summary (1) Procedure Note: See Note; NOTES: [facility] Physical Therapy [facility] [address] [place] [address]. [address] [place] [address] / REHABILITATION SERVICES DISCHARGE SUMMARY MR#: [id number] Acct: [id number] Name: ERIN DYSON Rep #: [id number] : [id number] 67 From: Karime SÁNCHEZ Referring : Yamilex Arnold DO Status: REG RCR Insurance: [employer] SELF PAY INSURANCE Discharge Summary D/C [...] pain Goal Progress: Not Progressing Plan Plan: KLESEY PT back to . Pt will call again today D/C Information Discharge Comments: DC PT back to d/c sentence: If there are questions or concerns regarding this patient's physical therapy, please feel free to call me at [phone]. Thank you for the referral of this patient. Sincerely, GONZALO Farrell Balance/Gait/Functional tests Balance/Special Test Scores Quick DASH Score: 47.7250 <Electronically signed by Karime SÁNCHEZ> 07/05/23 6344 CC: Dr. Rajat Norton DO; Yamilex Arnold DO Signed Rajat Fast DO Work Phone: Start: 06-30-2023 End: 06-30-2023 Re-Evaluation - PT (1) Procedure Note: See Note; NOTES: [facility] [address] [place] [address] / REEVALUATION / MEDICARE RECERTIFICATION PHYSICAL THERAPY MR#: [id number] Acct: [id number] Name: ERIN DYSON Rep #: [id number] : 1955 67 From: Fermin Lynch DPT Referring Dr.: Yamilex Arnold DO Status:REG RCR Insurance: [employer] SELF PAY INSURANCE Re-Evaluation Intro: Yamilex [...] do not hesitate to contact me at [phone] by phone or if you have questions or concerns regarding this new plan of care! Sincerely, RAKAN SpringT <Electronically signed by Fermin Lynch DPT> 06/30/23 0836 CC: Dr. Rajat Norton DO; Yamilex Arnold DO CLS Signed For Medicare only, by signing this I certify the plan of care. __ Physicians Signature Date Rajat Norton DO Work Phone: Start: 06-08-2023 End: 06-08-2023 Inital Evaluation (1) - PT Procedure Note: See Note; NOTES: [facility] [address] [place] [address] / REHABILITATION SERVICES INITIAL EVALUATION MR#: [id number] Acct: [id number] Name: ERIN DYSON Rep #: [id number] : 1955 67 From: Karime SÁNCHEZ Referring Dr.: Yamilex Arnold DO Status: REG RCR Insurance: [employer] SELF PAY INSURANCE Patient's Visit Information [...] to be FAXED BACK to us at [phone] for Medicare purposes. For Medicare only, by signing this I certify the plan of care. Please let me know if there are questions or concerns regarding this plan of care. Physician Signature: Date: <Electronically signed by Karime Ariza MPT> 06/08/23 190 CC: Dr. Rajat Norton DO; Yamilex Arnold DO Signed Rajat Norton DO Work Phone: Start: 04-20-2023 End: 04-27-2023 Dexa Bone Density Study Procedure Note: See Note; NOTES: [facility] Imaging Services [address] [place] [address] Dexa Bone Density Study MR#: [id number] Acct: [id number] Name: ERIN DYSON APOLLO Rep #: [id number] : 1955 F 67 From: Rafal rosas MD PCP: Dr. Rajat Norton DO Status: [facility] Study: Dexa Bone Density Study Date of Exam: 04/20/23 Exam# [id number] Ordering Dr: Fast,Rajat DO STUDY: DUAL ENERGY X-RAY ABSORPTIOMETRY / [...] at 12:14 EDT , CC: Dr. 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 Rajat Norton DO Work Phone: Start: 04-20-2023 Dual energy X-ray absorptiometry Dr. Rajat Norton Work Phone: Start: 04-20-2023 Screening mammography of bilateral breasts Dr. Rajat Norton Work Phone: Start: 04-20-2023 End: 04-21-2023 SCREENING MAMM (CAD), BILAT Procedure Note: See Note; NOTES: [facility] Imaging Services [address] [place] [address] SCREENING MAMM (CAD), BILAT MR#: [id number] Acct: [id number] Name: ERIN DYSON APOLLO Rep #: [id number] : 1955 F 67 From: Servando Thomason DO PCP: Dr. Rajat Norton DO Status: [facility] CLI Study: SCREENING MAMM (CAD), BILAT Date of Exam: 03/29 03/20 Exam# [id number] Ordering Dr: Rajat Norton DO MAMMOGRAPHY - [...] support , CC: Dr. 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 Rajat Norton DO Work Phone: Start: 03-11-2023 Plain chest X-ray Dr. Rajat Norton Work Phone: Start: 03-11-2023 End: 03-11-2023 Chest PA and Lateral Procedure Note: See Note; NOTES: [facility] Imaging Services [address] [place] [address] Chest PA and Lateral MR#: [id number] Acct: [id number] Name: ERIN DYSON APOLLO Rep #: [id number] : 1955 F 67 From: Mary jefferson MD PCP: Dr. Rajat Norton DO Status: REG CLI Study: Chest PA and Lateral Date of Exam: 03/11/23 Exam# [id number] Ordering Dr: Agustin Mooney HISTORY: Persistent cough. [...] 9:18 EDT Reading Location ID and State: [facility] / [place] Tel , Service support , CC: ANDRÉS Mooney; Dr. 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 Rajat Norton DO Work Phone: Start: 03-11-2023 End: 03-11-2023 Urgent Care Visit Report Procedure Note: See Note; NOTES: [facility] [address] [place] [address] OFFICE VISIT Date of Service: 03/11/23 MR#: [id number] Acct: [id number] Name: ERIN DYSON APOLLO Rep #: [id number] : 1955 Provider: ANDRÉS Mooney Age/Sex: 67/F Location: [facility] Status: Signed Intake Vital Signs [...] #21 tabs 03/11/23 [Rx Confirmed 03/11/23] omega 6-jak-jmt-fish oil 60 mg-90 mg-500 mg capsule (Fish [...] at home: Yes additional social history: - Teoy-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 03/11/2352 <Electronically signed by Agustin BOWEN> Date Agustin BOWEN Cosigner Signature: Date (if applicable) CC: Rajat Norton DO Work Phone: Start: 02-08-2023 End: 02-08-2023 Gastroenterology Visit Report Procedure Note: See Note; NOTES: [facility] Gastroenter[facility] [address] [place] [address] OFFICE VISIT Date of Service: 02/08/23 MR#: [id number] Acct: [id number] Name: ERIN DYSON APOLLO Rep #: [id number] : 1955 Provider: Dickson Oro DO Age/Sex: 67/F Location: [facility] Status: Signed Intake Intake Visit Reasons: HEMORRHOID BANDING Allergies No Known Allergies Allergy (Verified 12/28/22 15:09) [facility] Medical History (Updated 02/08/23 @ 11:11 by [...] at home: Yes additional social history: - Dbbd-Wnnx-kqfdewgt 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 Follow up instruction provided. LOT [id number] Alert Jareth Alert Billing: Yes Hemorrhoid 99211 Banding Quality Reporting Tobacco Screening ([facility] 138) Smoking Status: Never smoker Assessment [...] Hemorrhoid K64.9 CPT Codes Hemorrhoid - Hemorrhoid: 33601 Banding (05878) 02/08/23 1717 <Electronically signed by Dickson Oro DO> Date Dickson Oro DO Cosigner Signature: Date (if applicable) CC: Rajat Norton DO Work Phone: Start: 04-19-2022 End: 04-19-2022 Office Visit Report Comments: See Note; NOTES: [facility] [address] [place], [place] [address] [address] OFFICE VISIT Date of Service: 04/19/22 MR#: [id number] Acct: [id number] Patient: ERIN DYSNO APOLLO Rep #: [id number] : 1955 Provider: ANDRÉS Mooney Age/Sex: 66/F Location: [facility] Status: Signed Intake Intake Visit [...] Care Visit Report Comments: See Note; NOTES: [facility] [address] [place] [address] [address] [place] [address] OFFICE VISIT Date of Service: 04/19/22 MR#: [id number] Acct: [id number] Name: ERIN DYSON APOLLO Rep #: [id number] : 1955 Provider: ANDRÉS Mooney Age/Sex: 66/F Location: [facility] Status: Signed Intake Vital Signs [...] No Known Allergies Allergy (Verified 07/24/21 05:48) [facility] Medical History (Updated 04/19/22 @ 08:00 by [...] at home: Yes additional social history: - Rufk-Aptv-oehchizk 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 Rajat Norton DO Status: REG CLI Study: SCRN MAMM (CAD)W/ARTI BILAT Date of Exam: 03/28 Exam# [id number] Ordering Dr: Rajat Norton DO MAMMOGRAPHY - [...] delay biopsy of a clinically suspicious abnormality. [id number] Electronically Signed: Rafal Dos Santos MD at 13:38 EDT Reading Location ID and State: [address] [place] [address] , Service support , CC: Dr. 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 Rajat Norton DO Work Phone: Start: 07-24-2021 End: 07-24-2021 Colonoscopy Report Comments: See Note; NOTES: [facility] Medical Records Department [address] [place] [address] Colonoscopy Report MR#: [id number] Acct: [id number] Name: ERIN DYSON APOLLO Rep #: [id number] : 1955 65 From: Russell Najera MD PCP: Dr. Rajat Norton DO Status:[facility] Patient Name: Erin Dyson Procedure Date: 07/24/2021 [...] surgical removal. Procedure Code(s): --- Professional --- 79344, Colonoscopy, flexible; diagnostic, including collection of specimen(s) by brushing or washing, when performed (separate procedure) 79096, 59, Moderate sedation services provided by the same physician or other qualified health patient care representative performing the diagnostic or therapeutic service that [...] or abscess without bleeding CPT copyright 2017 [employer]. All rights reserved. The codes documented in this report are preliminary and upon watch leader review may be revised to meet current compliance requirements. Russell Najera MD 07/24/2021 6:52:10 AM This report has been signed electronically. Number of Addenda: 0 Note Initiated On: 07/24/2021 6:12 AM 07/24/2152 Date Russell Najera MD Cosigner Signature: Date (if indicated) CC: Dr. Rajat Norton DO; Dr. Russell Najera MD Date Dictated: 07/24/21611 Date Transcribed: Insole And Outsole Preparer: TAWNYA Signed Rajat Norton DO Work Phone: Start: 07-24-2021 End: 07-24-2021 History and Physical Exam Comments: See Note; NOTES: [facility] Medical Records Department [address] [place] [address] History Physical Exam 07/24/21621 MR#: [id number] Acct: [id number] Name: ERIN DYSON APOLLO Rep #: [id number] : 1955 65 From: Russell Najera MD PCP: Dr. 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 This note was generated with Codotaation software. It may contain incorrect words, spelling, and punctuation that were not noted in checking the note before signing. 06/30/21 1320 <Electronically signed by Chad Baker MD> Date Chad Baker MD CC: Dr. Rajat Norton DO Date Dictated: 06/30/21 1316 Date Transcribed: 06/30/21 131 Insole And Outsole Preparer: PM Signed Rajat Norton DO Work Phone: Start: 06-30-2021 End: 06-30-2021 Echo Complete Comments: See Note; NOTES: [facility] [address] [place] [address] Echo Complete 06/30/21817 MR#: [id number] Acct: [id number] Name: ERIN DYSON APOLLO Rep #: [id number] : 1955 65 From: Chad Baker MD Attending Dr: Dr. Rajat Norton, DO Status: REG CL I Ordering Dr: Rajat Norton DO Date: 06/30/21 Location: [facility] Sex: F C Admitted: Reason For Study: [...] DO Date Dictated: 06/30/21817 Date Transcribed: 06/30/211506 Insole And Outsole Preparer: Armand Norton DO Work Phone: Start: 04-24-2021 End: 04-24-2021 Emergency Department Summary Comments: See Note; NOTES: [facility] Medical Records Department [address] [place] [address] Emergency Department Summary 04/24/21 MR#: [id number] Acct: [id number] Name: ERIN DYSON APOLLO Rep #: [id number] : 1955 65 From: Federico Issa MD [...] Negative for Recent Travel/Surgery (only trip to/from [place] 4wks ago, 2 hrs by plane), Recent [...] at home: Yes additional social history: - Auxy-Sfid-yebakres 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 Call [facility] ([phone]) or report to the closest Emergency Room. Call 911 if necessary. 04/24/21 1503 <Electronically signed by Federico Issa MD> Cosigner Signature (if applicable): CC: Dr. Dee Alvarez DO Signed Dee Alvarez DO Work Phone: Start: 04-24-2021 End: 04-28-2021 12 Lead EKG Comments: See Note; NOTES: [facility] Cardiovascular Services [address] [place] [address] 12 Lead EKG 04/24/21 1026 MR#: [id number] Acct: [id number] Name: ERIN DYSON APOLLO Rep #: [id number] : 1955 65 From: Phillip Borrego MD [...] Normal ECG Confirmed by ELMO SEVERINO, PHILLIP ([id number]), manager editorial LATASHA BRITTON ([id number]) on 04/28/2021 1:44:13 PM Referred By: GRZEGORZ Confirmed By:PHILLIP BORREGO MD 04/28/21 1344 Date Phillip Borrego MD CC: Dr. Federico Issa MD; Dr. Dee Alvarez DO Signed Dee Alvarez DO Work Phone: Start: 04-24-2021 End: 04-24-2021 Chest 1 View (Portable) Comments: See Note; NOTES: [facility] Imaging Services [address] [place] [address] Chest 1 View (Portable) MR#: [id number] Acct: [id number] Name: ERIN DYSON APOLLO Rep #: [id number] : 1955 F 65 From: Orestes jefferson DO PCP: Dr. Dee Alvarez DO Status: REG ER Study: Chest 1 View (Portable) Date of Exam: 04/24/21 Exam# [id number] Ordering Dr: Federico Issa MD STUDY: X-RAY [...] No acute cardiopulmonary findings Electronically Signed: Orestes DO Ramona at 11:24 EDT Tel , Service support , CC: Dr. Federico Issa MD; Dr. Dee Alvarez DO Insole And Outsole Preparer: Signed Dee Alvarez DO Work Phone: Start: 02-24-2021 End: 02-24-2021 SCRN MAMM (CAD)W/ARTI BILAT Comments: See Note; NOTES: [facility] Imaging Services [address] [place] [address] SCRN MAMM (CAD)W/ARTI BILAT MR#: [id number] Acct: [id number] Name: KARISERIN APOLLO Rep #: [id number] : 1955 F 65 From: Rafal rosas MD PCP: Dr. Dee Alvarez DO Status: REG CLI Study: SCRN MAMM (CAD)W/ARTI BILAT Date of Exam: 01/28 Exam# [id number] Ordering Dr: Dee Alvarez DO MAMMOGRAPHY - [...] delay biopsy of a clinically suspicious abnormality. [id number] Electronically Signed: Rafal Dos Santos MD at 8:39 EDT , Service support , CC: Dr. Dee Alvarez DO Insole And Outsole Preparer: Signed Dee Alvarez DO Work Phone: Start: 12-13-2020 End: 12-13-2020 Office Visit Report Comments: See Note; NOTES: [facility] [place] [address] OFFICE VISIT Date of Service: 12/13/20 MR#: [id number] Acct: [id number] Patient: ERIN DYSON APOLLO Rep #: [id number] : 1955 Provider: KATHLEEN jimenez Age/Sex: 65/F Location: [facility] Status: Signed Intake Vital Signs [...] Days #84 tab 12/13/20 [Rx Confirmed 12/13/20] [facility] Medical History Hemorrhoid (Chronic) Cystocele (Chronic) Surgical [...] (Updated 12/13/20 @ 14:11 by Haydee Kilgore MERCHANDISE CLERK, MERCHANDISE CLERK-C) Smoking Status: Never smoker alcohol intake: current alcohol intake frequency: a few times a week Alcohol type: wine details: 2-3 glasses per week substance use type: does not use caffeine: Yes what type of physical activity do you participate in: walking, weight training frequency: 5-6 times per week seatbelt use: always do you feel safe at home: Yes additional social history: - Mbje-Zgrc-kqoawrgn 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 She reports she took the nail german off of her toenails last night and [...] 1411 <Electronically signed by Haydee Kilgore NP MERCHANDISE CLERK- C> Date Haydee Kilgore NP MERCHANDISE CLERK-C Cosigner Signature: Date (if applicable) CC: Dee Alvarez Start: 09-23-2020 End: 09-23-2020 Academic Program Specialist Office Visit Report Comments: See Note; NOTES: [facility] [address] [place] [address] OFFICE VISIT Date of Service: 09/23/20 MR#: [id number] Acct: [id number] Name: ERIN DYSON APOLLO Rep #: [id number] : 1955 Provider: Dr. 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 Dee Alvarez, DO Status:REG SDC Y Location: [place] [id number] Patient Problems: Active and Suspected Problems (Last [...] 94.2 H, Lymph % (Auto) 3.0 L, Mcduffie % (Auto) 2.2, Eos % (Auto) 0.0, [...] 500 Mg Tablet) 1,000 mg PO Q6H [facility] Last Admin: 09/10/20 06:43 Dose: 1,000 mg Documented by: Cephalexin (Cephalexin 500 Mg Capsule) 500 mg PO Q12 [facility] Last Admin: 09/09/20 22:12 Dose: 500 mg Documented by: Docusate Sodium (Docusate Sodium 100 Mg Capsule) 100 mg PO BID [facility] Last Admin: 09/09/20 22:12 Dose: 100 mg Documented by: Enoxaparin Sodium (Enoxaparin 40 Mg/0.4 Ml Syringe) 40 mg SC DAILY [facility] Sodium Chloride () 250 mls @ 15 mls/hr IV .[id number] PRN PRN Reason: Saline Flush Sodium Chloride () 250 mls @ 15 mls/hr IV .[id number] PRN PRN Reason: Additional IVPB Infusion Lactated Ringer's () 1,000 mls @ 70 mls/hr IV .[id number] [facility] Stop: 09/10/20 12:30 Last Infusion: 09/10/20 05:22 Dose: Infused Documented by: Ketorolac Tromethamine (Ketorolac 30 Mg/Ml Syringe) 30 mg IV Q6H [facility] Stop: 09/10/20 18:31 Last Admin: 09/10/20 06:09 [...] 09-10-2020 Discharge Instruction Comments: See Note; NOTES: [facility] Medical Records Department [address] [place] [address] Instructions for Home/Discharge Instructions 09/09/20 1636 MR#: [id number] Acct: [id number] Name: ERIN DYSON APOLLO Rep #: [id number] : 1955 65 From: Patricia Blackman MD [...] Reason: MILD PAIN Transmission Status: Received by [facility] Oxycodone HCl/Acetaminophen [Percocet 5-325] 1 - 2 tab PO Q6H PRN PRN 7 Days #15 tab PRN Reason: Pain Transmission Status: Received by [facility] Primary Care Physician: Dee Alvarez DO [Primary Care Provider] - Test Results: Test results from this visit will be discussed in further detail at your follow-up appointment, if applicable. Please Follow Up With: Patricia Blackman MD - [phone] 09/10/20 0735 <Electronically signed by Patricia Blackman MD> Date Patricia Blackman MD CC: Dr. Nan Robison MD; Dr. Dee Alvarez DO Signed Dee Alvarez Start: 09-09-2020 End: 09-09-2020 Operative Report Comments: See Note; NOTES: [facility] Medical Records Department [address] [place] [address] Operative Report 09/09/20 1044 MR#: [id number] Acct: [id number] Name: ERIN DYSON Rep #: [id number] : 1955 65 From: Nan Robison MD PCP: Dr. Dee Alvarez, DO Status:[facility] Y Location: [place]3 BJ088-4 Problem List (1) Cystocele Status: Chronic Qualifiers: [...] vaginal cuff, the case was turned to mn. The patient had very thin vaginal mucosa. [...] orifice. On the right side a 5 Slovenian whistle-tip catheter was easily inserted into the [...] 09-09-2020 Operative Report Comments: See Note; NOTES: [facility] Medical Records Department [address] [place] [address] Operative Report 09/09/20 0730 MR#: [id number] Acct: [id number] Name: ERIN DYSON APOLLO Rep #: [id number] : 1955 65 From: Patricia Blackman MD PCP: Dr. Dee Alvarez DO Status:REG SDC Y Location: [place]3 NC158-9 Problem List (1) Cystocele Status: Chronic Qualifiers: Comment: plan tvh bso combo case with enriqueta (2) Hemorrhoid Status: Chronic Qualifiers: Comment: consult with dr najera for possible removal Report of Operation Date of Procedure: 09/09/20 Pre-Operative Diagnosis: prolapse Post-Operative Diagnosis: same Surgery/Procedure Performed:: tvh bso Description of Surgical Findings:: nl uterus tubes ovaries printing mechanist: Beena Corral Type of Anesthesia:: General Special [...] peritoneum and the vagina were closed with ugrwuv-rz-pzvuu 0 Vicryl pop offs including the posterior and what anterior peritoneum was visible in the reapproximation. Excellent hemostasis was noted. All instruments removed from the vagina clear urine was noted at the end of the procedure and dr robison began her portion of the procedure. Grafts/Implants Used: see enriqueta note Multi Select Codes - Urinary/Genital Urinary/Genital CPT Codes: 77828 TVH+BS/O <250gr uterus 09/09/20917 <Electronically signed by Patricia Blackman MD> Date Patricia Blackman MD CC: Dr. Nan Robison MD; Dr. Dee Alvarez DO; Dr. Patricia Blackman MD Signed Dee Alvarez Start: 09-09-2020 End: 09-10-2020 History and Physical Exam Comments: See Note; NOTES: [facility] Medical Records Department [address] [place] [address] History and Physical 09/09/20 0645 MR#: [id number] Acct: [id number] Name: ERIN DYSON APOLLO Rep #: [id number] : 1955 65 From: Patricia Blackman MD PCP: Dr. Dee Alvarez DO Status:[facility] Y Location: [facility] II530-1 - Problem List (1) Cystocele Status: Chronic [...] 130/80 H Intake Visit Reasons: pre op Tribunal Member Required: No Is patient in pain?: No Allergies No Known Allergies Allergy (Verified 08/26/20 13:03) Medications cholecalciferol (vitamin D3) 50 mcg (2,000 unit) capsule 2,000 unit PO QDAY 03/07/18 [History Confirmed 08/26/20] Is last menstrual period known: No Post menopausal: Yes Patient : No : No [facility] Medical History Hemorrhoid (Chronic) Cystocele (Chronic) Surgical [...] at home: Yes additional social history: - Ysie-Ttmn-idiwheat 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[employer] 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 Cystocele plan [facility] bso combo case with enriqueta Salvador After [...] 12 Lead EKG Comments: See Note; NOTES: [facility] Cardiovascular Services [address] [place] [address] 12 Lead EKG 09/03/20719 MR#: [id number] Acct: [id number] Name: ERIN DYSON APOLLO Rep #: [id number] : 1955 65 From: Phillip Borrego MD Attending Dr: Dr. Patricia Blackman MD Status: [facility] Ordering Dr: Orestes Arroyo MD Date: 09/03/20 [facility] Sex: F C Admitted: Test Reason : PREOP Blood Pressure : / mmHG Vent. Rate : 057 BPM Atrial Rate : 057 BPM P-R Int : 166 ms QRS Dur : 082 ms QT Int : 412 ms P-R-T Axes : 042 049 033 degrees QTc Int : 401 ms Sinus bradycardia Otherwise normal ECG Confirmed by ELMO SEVERINO, PHILLIP ([id number]), manager editorial LATASHA BRITTON ([id number]) on 09/04/2020 10:08:46 AM Referred By: Patricia Blackman Confirmed By:PHILLIP BORREGO MD 09/04/20 1008 Date Phillip Borrego MD CC: Dr. Orestes Arroyo MD; Dr. Dee Alvarez DO; Dr. Patricia Blackman MD Signed Dee Alvarez Start: 08-26-2020 End: 08-26-2020 Academic Program Specialist Office Visit Report Comments: See Note; NOTES: [facility] [address] [place] [address] OFFICE VISIT Date of Service: 08/26/20 MR#: [id number] Acct: [id number] Name: ERIN DYSON Rep #: [id number] : 1955 Provider: Dr. 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 Dee Alvarez, Status: REG CLI Study: Dexa Bone Density Study Date of Exam: 04/10/20 Exam# [id number] Ordering Dr: Dee Alvarez DO STUDY: DUAL [...] support , CC: Dr. Dee Alvarez DO Insole And Outsole Preparer: Signed Dee Alvarez Work Phone: Start: 11-28-2019 End: 11-28-2019 Louise Langford CMA Comment on above: Enriqueta Start: 11-28-2019 End: 11-28-2019 Total [facility] Tonie Langford [facility] Comment on above: Enriqueta and Anastasia did together Start: 10-07-2016 End: 10-07-2016 Bilat Scrn Digital AND CAD Comments: See Note; NOTES: [facility] Imaging Services [address] [place] [address] Chikadamurphy 4d Bilat Scrn Digital AND CAD MR#: [id number] Acct: [id number] Name: ERIN DYSON Rep #: [id number] : 1955 F 61 From: Rafal Dos Santos MD PCP: Radha Cramer Status: REG CLI Study: Bilat Scrn Digital AND CAD Date of Exam: 10/07/16 Exam# [id number] Ordering Dr: Radha Cramer MAMMOGRAPHY - BILATERAL [...] delay biopsy of a clinically suspicious abnormality. [id number] Electronically Signed: Rafal Dos Santos MD at 13:25 EST Tel [phone], Service support [phone], CC: Radha Cramer Insole And Outsole Preparer: Signed Radha Cramer Work Phone: Start: 07-29-2015 End: 07-29-2015 Bilat Scrn Digital AND CAD Comments: See Note; NOTES: [facility] Imaging Services [address] [place] [address] Breast Imaging Report MR#: [id number] Acct: [id number] Name: ERIN DYSON Rep #: [id number] : 1955 F 59 From: Rafal Dos Santos MD PCP: Rajat Norton DO Status: REG CLI Study: Danielito Henriquez Digital AND CAD Date of Exam: 07/29/15 Exam# [id number] Ordering Dr: Rajat Norton DO MAMMOGRAPHY - [...] Dos Santos MD at 14:34 EDT Tel [phone], Service support [phone], CC: 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 Rajat Norton Work Phone: Start: 07-29-2015 End: 07-31-2015 Dexa Bone Density Study (HP) Comments: See Note; NOTES: [facility] Imaging Services [address] [place] [address] Bone Density Report MR#: [id number] Acct: [id number] Name: ERIN DYSON Rep #: [id number] : 1955 F 59 From: Rafal Dos Santos MD PCP: Rajat Norton DO Status: [facility] Study: Dexa Bone Density Study (HP) Date of Exam: 07/29/15 Exam# [id number] Ordering Dr: Rajat Norton DO STUDY: DUAL [...] Dos Santos MD at 10:14 EDT Tel [phone], Service support [phone], CC: 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 Rajat Norton Work Phone: Start: 04-01-2014 End: 04-12-2014 Bilat Scrn Digital & CAD Comments: See Note; NOTES: [facility] Imaging Services [address] [place] [address] Breast Imaging Report MR#: [id number] Acct: [id number] Name: ERIN DYSON Rep #: [id number] : 1955 F 58 From: Rafal Dos Santos MD PCP: Rajat Norton DO Status: REG CLI Exam# [id number] Ordering Dr: Rajat Norton DO MAMMOGRAPHY - [...] Dos Santos MD at 13:32 EDT Tel [phone], Service support [phone], CC: 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 Rajat Norton Work Phone: Start: 06-15-2011 [...] with osteotomy of first metatarsal Disha Cross PAPER REELER Comment on above: Bilateral. Bunionectomy with osteotomy of first metatarsal Tonie Manchak [facility] NURSE Comment on above: Bilateral. Bunionectomy with osteotomy of first metatarsal Tonie Manchak [facility] NURSE Comment on above: Bilateral. Bunionectomy with osteotomy of first metatarsal Tonie Manchak [facility] NURSE Comment on above: Bilateral. Bunionectomy with osteotomy of first metatarsal Tonie Manchak [facility] NURSE Comment on above: Bilateral. Bunionectomy with osteotomy of first metatarsal Kayela Avoca [facility] CENTER NURSE Comment on above: Bilateral. Bunionectomy with osteotomy of first metatarsal Tonie Manchak [facility] CENTER NURSE Comment on above: Bilateral. Bunionectomy with osteotomy of first metatarsal Tonie Manchak [facility] NURSE Comment on above: Bilateral. 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 Tonie Manchak [facility] C[facility] NURSE Plan of Treatment Date Care Activity Detail Author Start: 01-29-2035 Urine microalbumin profile DTaP,Tdap,Td Vaccine (3 - Td or Tdap) [facility] Start: 2029 RSV Vaccine (1 - 1-d ose 75+ series) RSV Vaccine (1 - 1-dose 75+ series) [facility] Start: 10-18-2025 End: 10-18-2025 Patient encounter procedure 10/18/2025 8:00 AM EST Office Visit Neurology [address] [place] [address] Ozzie Robertson Jr., MD [address] [place], [place] [id number] 3-4 month follow up Neurology Comment on above: 3-4 month follow up Start: 07-29-2025 Influenza vaccination Influenza Vacc ine (#1) [facility] Start: 05-03-2025 End: 05-03-2025 Patient encounter procedure 05/03/2025 2:00 PM EDT Office Visit Neurology [address] [place], [place] [address] Ozzie Robertson Jr., MD [address] [place], [place] [address] 6 mth f/u cognitive decline, marilee 11/02/24 Neurology Comment on above: 6 mth f/u cognitive decline, marilee 11/02/24 Start: 03-13-2025 MRI of joint of lowe r extremity Upper Ext Joint Only(Routine) [facility] Start: 02-06-2025 End: 02-06-2025 Patient encounter procedure 02/06/2025 11:30 AM EDT Office Visit Neurology [address] [place], [place] [address] Danni Gurrola PA-C [address] [place], [place] [id number] review meds and discuss further treatment options. Neurology Comment on above: review meds and disc uss further treatment options. Start: 11-28-2024 Advance Directive Discussion Advance Directive Discussion [facility] Start: 11-02-2024 End: 11-02-2024 Patient encounter procedure 11/02/2024 3:20 PM EST Office Visit Neurology [address] [place], [place] [id number] Ozzie Robertson Jr., MD [address] [id number] 3 Month Follow up Neurology Comment on above: 3 Month Follow up Start: 07-29-2024 Covid-19 Vaccine ( season) Covid-19 Vaccine () [facility] Start: 07-29-2024 Covid-19 Vaccine () Covid-19 Vaccine () [facility] Start: 07-29-2024 Influenza vaccination C [facility] Start: 05-04-2024 End: 05-04-2024 Patient encounter procedure 05/04/2024 9:00 AM EDT Office Visit Neurology [address] [facility] [place] [address] Ozzie Robertson Jr., MD [address] [facility] [address] [place] [address] 3 Month Follow up Neurology Comment on above: 3 Month Follow up Start: 11-28-2023 Advance Directive Discussion Advance Directive Discussion [facility] Start: 2023 End: 10-19-2023 Cobalamin (Vitamin B12) [Mass/volume] in Serum or Plasma [facility] Work Phone: Comment on above: Expected: 2023 , Expires: 10/19/2023 Start: 2023 End: 10-19-2023 Thyrotropin [Units/volume] in Serum or Plasma [facility] Work Phone: Comment on above: Expected: 2023 , Expires: 10/19/2023 Start: 2023 End: 10-19-2023 Thyroxine (T4) free [Mass/volume] in Serum or Plasma [facility] Work Phone: Comment on above: Expected: 2023 , Expires: 10/19/2023 Start: 07-29-2023 Covid-19 Vaccine ( season) Covid-19 Vaccine () [facility] Start: 07-29-2023 Influenza vaccination C [facility] Start: 07-12-2023 Procedure Education Eprescribe d prescriptions (G8553) [facility]; [facility] Work Phone: Start: 07-12-2023 Cyanocobalamin vitam in b-12 VITAMIN B12 AND FOLATES (78584) [facility]; [facility] Work Phone: Start: 07-12-2023 Blood count complete auto&auto difrntl wbc CBC W/AUTO DIFF WBC (26635) [facility]; [facility] Work Phone: Start: 07-12-2023 Comprehensive metabo lic panel METABOLIC PANEL, COMPREHENSIVE (24740) [facility]; [facility] Work Phone: Start: 04-20-2023 Dual energy X-ray absorptiometry Dexa Bone Density Study [facility] Start: 01-11-2023 Procedure Education Eprescribe d prescriptions (G8553) [facility]; [facility] Work Phone: Start: 01-11-2023 Blood count complete auto&auto difrntl wbc CBC W/AUTO DIFF WBC (80969) [facility]; [facility] Work Phone: Start: 01-11-2023 Comprehensive metabo lic panel METABOLIC PANEL, COMPREHENSIVE (00663) [facility]; [facility] Work Phone: Start: 01-11-2023 Cyanocobalamin vitam in b-12 VITAMIN B12 AND FOLATES (87343) [facility]; [facility] Work Phone: Start: 11-28-2022 ADVANCE DIRECTIVE DISCUSSION ADVANCE DIRECTIVE DISCUSSION [facility] Start: 11-28-2022 DEPRESSION ASSESSMENT DEPRESSION ASS ESSMENT [facility] Start: 07-09-2022 Procedure Education Eprescribe d prescriptions (G8553) [facility]; [facility] Work Phone: Start: 07-09-2022 Comprehensive metabo lic panel METABOLIC PANEL, COMPREHENSIVE (49103) [facility]; [facility] Work Phone: Start: 07-09-2022 25 hydroxy includes fractions if performed Vitamin D Hydroxy (94144) [facility]; [facility] Work Phone: Start: 07-09-2022 Lipid panel LIPID PANEL (69947) [facility]; [facility] Work Phone: Start: 04-28-2022 Procedure Education Eprescribe d prescriptions (G8553) [facility]; [facility] Work Phone: Start: 12-29-2021 Urnls dip stick/tabl et reagent auto microscopy URINALYSIS, W/ MICRO (18302) [facility]; [facility] Work Phone: Start: 12-29-2021 Blood count complete auto&auto difrntl wbc CBC W/AUTO DIFF WBC (43685) [facility]; [facility] Work Phone: Start: 12-29-2021 Comprehensive metabo lic panel METABOLIC PANEL, COMPREHENSIVE (66261) [facility]; [facility] Work Phone: Start: 12-29-2021 Procedure Education Eprescribe d prescriptions (G8553) [facility]; [facility] Work Phone: Start: 12-29-2021 Comprehensive metabo lic panel METABOLIC PANEL, COMPREHENSIVE (83445) [facility]; [facility] Work Phone: Start: 12-29-2021 25 hydroxy includes fractions if performed Vitamin D Hydroxy (32778) [facility]; [facility] Work Phone: Start: 12-29-2021 Lipid panel LIPID PANEL (96039) [facility]; [facility] Work Phone: Start: 12-17-2021 25 hydroxy includes fractions if performed Vitamin D Hydroxy (35371) [facility]; [facility] Work Phone: Start: 12-17-2021 Comprehensive metabo lic panel METABOLIC PANEL, COMPREHENSIVE (88217) [facility]; [facility] Work Phone: Start: 12-17-2021 Lipid panel LIPID PANEL (73590) [facility]; [facility] Work Phone: Start: 08-24-2021 Urinalysis qual/semiquant except immunoassays URINALYSIS (32732) [facility]; [facility] Work Phone: Start: 08-24-2021 Culture bacterial quanttative colony count urine URINE ALONDRA CULTURE (PHU COL COUNT) (44823) [facility]; [facility] Work Phone: Start: 07-14-2021 Procedure Education Eprescribe d prescriptions (G8553) [facility]; [facility] Work Phone: Start: 07-14-2021 Hepatic function panel HEPATIC FUNCTION PANEL (85312) [facility]; [facility] Work Phone: Comment on above: next month Start: 06-12-2021 Comprehensive metabo lic panel Metabolic Panel, Comprehensive (14962) [facility]; [facility] Work Phone: Start: 06-09-2021 Procedure Education Eprescribe d prescriptions (G8553) [facility]; [facility] Work Phone: Start: 05-07-2021 Procedure Education Eprescribe d prescriptions (G8553) [facility]; [facility] Work Phone: Start: 12-08-2020 Assay of magnesium MAGNESIUM (65896) [facility]; [facility] Work Phone: Start: 12-08-2020 Magnesium [Mass/Vol] MAGNESIUM (8373 5) [facility]; [facility] Work Phone: Start: 12-08-2020 Blood count complete auto&auto difrntl wbc CBC W/AUTO DIFF WBC (98903) [facility]; [facility] Work Phone: Start: 12-08-2020 Assay of thyroid stimulating hormone tsh TSH (89007) [facility]; [facility] Work Phone: Start: 12-08-2020 TSH Qn TSH (53983) [facility]; [facility] Work Phone: Start: 12-08-2020 Comprehensive metabo lic panel METABOLIC PANEL, COMPREHENSIVE (04796) [facility]; [facility] Work [...] 25 hydroxy includes fractions if performed CALCIFEDIOL (56752) [facility] Work Phone: Start: 09-16-2019 Urine microalbumin profile [facility] Start: 2019 BONE DENSITY BONE DENSITY [facility] Start: 2019 Bone Density Screening Bone Density Screening [facility] Start: 2019 Pneumococcal Vaccine : 65+ (1 - PCV) Pneumococcal Vaccine: 65+ (1 - PCV) [facility] Start: 2019 Pneumococcal Vaccine : 65+ (1 of 1 - PCV) Pneumococcal Vaccine: 65+ (1 of 1 - PCV) [facility] Start: 2019 PNEUMOCOCCAL: 65+ (1 - PCV) PNEUMOCOCCAL: 65+ (1 - PCV) [facility] Start: 2019 Screening for osteoporosis Bone Density Screening [facility] Start: 08-12-2017 25 hydroxy includes fractions if performed CALCIFEDIOL (34966) [facility] Work Phone: Start: 04-09-2017 DIABETES SCREEN DIABETES SCREEN [facility] Start: 04-09-2017 Diabetes Screening Diabetes Screenin g [facility] Start: 08-10-2016 Provider Instruction s for Treatment [facility] Work Phone: Start: 08-07-2015 25 hydroxy includes fractions if performed Vitamin D Hydroxy (24722) [facility] Work Phone: Start: 07-22-2015 Procedure Education Eprescribe d prescriptions (G8553) [facility] Work Phone: Start: 07-22-2015 25 hydroxy includes fractions if performed Vitamin D Hydroxy (54324) [facility] Work Phone: Start: 07-22-2015 Urnls dip stick/tabl et reagent auto microscopy URINALYSIS, W/ MICRO (43802) [facility] Work Phone: Start: 07-22-2015 Blood count complete auto&auto difrntl wbc CBC W/AUTO DIFF WBC (56862) [facility] Work Phone: Start: 07-22-2015 Comprehensive metabo lic panel METABOLIC PANEL, COMPREHENSIVE (60285) [facility] Work Phone: Start: 07-22-2015 Lipid panel LIPID PANEL (88500) [facility] Work Phone: Start: 09-16-2014 Lipid 1996 panel - Serum or Plasma Lipid Screening [facility] Start: 09-16-2014 Lipid panel Lipid Screening [facility] Start: 09-16-2014 LIPID SCREEN LIPID SCREEN [facility] Start: 2014 RSV Vaccine (1 - 1-d ose 60+ series) RSV Vaccine (1 - 1-dose 60+ series) [facility] Start: 03-25-2014 Lipid panel LIPID PANEL (56435) [facility] Work Phone: Start: 03-25-2014 Urnls dip stick/tabl et reagent auto microscopy URINALYSIS, W/ MICRO (12892) [facility] Work Phone: Start: 03-25-2014 Blood count manual c ell count each CBC WITH MANUAL DIFF (16048) [facility] Work Phone: Start: 03-25-2014 Comprehensive metabo lic panel METABOLIC PANEL, COMPREHENSIVE (23087) [facility] Work Phone: Start: 01-24-2013 Provider Instruction s for Treatment [facility] Work Phone: Start: 06-15-2012 Mammography [facility] Start: 06-15-2012 Screening for malign ant neoplasm of breast Mammogram Screening [facility] Start: 2004 Pneumococcal Vaccine : 50+ (1 of 1 - PCV) Pneumococcal Vaccine: 50+ (1 of 1 - PCV) [facility] Start: 2004 SHINGRIX VACCINE (1 of 2) SHINGRIX VACCINE (1 of 2) [facility] Start: 1999 COLOGUARD (FIT-DNA) COLOGUARD (FIT-D NA) [facility] Start: 1999 Colonoscopy COLONOSCOPY [facility] Start: 1999 COLORECTAL CANCER SCREENING COLORECTAL CANCER SCREENING [facility] Start: [address] COLONOGRAPHY [facility] Start: 1999 FECAL OCCULT BLOOD FECAL OCCULT BLOO D [facility] Start: 1999 Screening for malign ant neoplasm of colon [facility] Start: 1999 SIGMOIDOSCOPY SIGMOIDOSCOPY [facility] Start: 1972 HEPATITIS C SCREENING HEPATITIS C [facility] Start: 1972 Hepatitis C screening Hepatitis C [facility] Start: [birth year]-16-1956 COVID-19 VACCINE (#1) COVID-19 VACCI NE (#1) [facility] Ecg routine ecg w/le ast 12 lds i&r only ECG INTERPRETATION & REPORT ONLY Cardiology Routine Dementia without behavioral disturbance, psychotic disturbance, mood disturbance, or anxiety, unspecified dementia severity, unspecified dementia type (HCC) At high risk for adverse medication event Ordered: 11/23/2024 [facility] Work Phone: Comment on above: Ordered: 11/23/2024 End: 09-17-2024 Mri brain brain stem w/o contrast material MRI BRAIN WO IVCON Radiology Routine Memory loss Cognitive decline 1 Occurrences starting 2023 until 09/17/2024 [facility] Work Phone: Comment on above: 1 Occurrences [...] nternal Medicine; [facility] Work Phone: [facility]; [facility] Work Phone: [facility] Immunizations Immunization Date Immunization Notes Care Provider Wen shanks 01-29-2025 tetanus toxoid, redu marnie diphtheria toxoid, and acellular pertussis vaccine, adsorbed Dr. Rajat Norton DO Work Phone: [facility] 10-02-2020 influenza, injectabl e, quadrivalent, preservative free Dr. Rajat Norton Work Phone: [facility] 10-02-2020 influenza, seasonal, injectable [facility] 10-02-2020 influenza virus vaccine, unspecified formulation Ozzie Robertson Jr., MD Work Phone: [facility] 09-24-2019 influenza, injectabl e, quadrivalent, preservative free Dr. Rajat Norton Work Phone: [facility] 09-24-2019 influenza, seasonal, injectable [facility] 09-11-2018 influenza, injectabl e, quadrivalent, preservative free Dr. Rajat Norton Work Phone: [facility] 09-11-2018 influenza, seasonal, injectable [facility] 08-24-2017 influenza, injectabl e, quadrivalent, preservative free Dr. Rajat Norton Work Phone: [facility] 08-24-2017 influenza, seasonal, injectable [facility] 08-26-2016 influenza, injectabl e, quadrivalent, preservative free Dr. Rajat Norton Work Phone: [facility] 08-26-2016 influenza, seasonal, injectable [facility] 09-25-2015 influenza, injectabl e, quadrivalent, preservative free Dr. Rajat Norton Work Phone: [facility] 09-25-2015 influenza, seasonal, injectable [facility] 09-16-2009 tetanus toxoid, redu marnie diphtheria toxoid, and acellular pertussis vaccine, adsorbed Neurology Provider [facility] Payers Date Payer Category Payer Self-pay [id number] 2022 Private Health Insurance [id number] 2022 Unknown [id number] 2021 Unknown [id number] 2020 Medicare [id number] 2020 Medicare [id number] 2014 Unknown 1932 2005 Unknown [id number] 1954 Unknown [id number] 2.16.84 0.1.931554.3.579.2.716 Unknown Unknown [id number] 2.16.8 40.1.181897.3.579.2.462 Unknown [id number] 2.16.8 40.1.135081.3.579.2.462 Unknown [id number] 2.16.8 40.1.484595.3.579.2.462 Unknown [id number] 2.16.8 40.1.241693.3.579.2.462 Unknown [id number] 2.16.8 40.1.394846.3.579.2.462 Unknown [id number] 2.16.8 40.1.782579.3.579.2.462 Unknown [id number] 2.16.8 40.1.401087.3.579.2.462 Unknown [id number] 2.16.8 40.1.874396.3.579.2.462 Unknown [id number] 2.16.8 40.1.506449.3.579.2.462 Unknown [id number] 2.16.8 40.1.505434.3.579.2.462 Unknown [id number] 2.16.8 40.1.042207.3.579.2.462 Unknown [id number] 2.16.8 40.1.645787.3.579.2.462 Unknown [id number] 2.16.8 40.1.467206.3.579.2.462 Unknown [id number] 2.16.8 40.1.725002.3.579.2.462 Unknown [id number] 2.16.8 40.1.223534.3.579.2.462 Unknown [id number] 2.16.8 40.1.539127.3.579.2.462 Unknown [id number] 2.16.8 40.1.493063.3.579.2.462 Unknown [id number] 2.16.8 40.1.358445.3.579.2.462 Unknown [id number] 2.16.8 40.1.912269.3.579.2.462 Unknown [id number] 2.16.8 40.1.414348.3.579.2.462 Social History Date Type Detail Facility Start: 07-14-2022 End: 2023 Alcohol Use Alcohol Use [facility] Work Phone: Comment on above: Occasional alcohol u se, Drinks wine 4-6 cups coffee qd Part-time, [employer]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 , Lives with spouse Start: 12-28-2022 End: 12-27-2023 Tobacco smoking status ORIS Unknown if ever smoked [facility] Start: 09-02-2020 Non-smoker [facility] Start: 1955 [facility] Start: 06-15-2011 End: 05-20-2025 Tobacco smoking status NHIS Never smoked tobacco [facility] Start: 06-15-2011 Tobacco use and exposure Smokeless tobacco non-user [facility] Start: 07-14-2022 End: 06-21-2025 Alcohol intake Current drinker of alcohol (finding) [facility] Start: 07-14-2022 End: 2023 Tobacco use panel [facility] Start: 1955 Sex Assigned At Not on file C [facility] National Score (1-10 0), lower number is lower risk 99 [facility] Start: 03-19-2025 Sex Female (finding) [facility] Medical Equipment Procedure Code Equipment Code Equipment [...] No 04/09/2014 10:58 AM Ryann Tucker MA [facility] 04-09-2014 Are you blind, or do you have serious difficulty seeing, even when wearing glasses No 04/09/2014 10:58 AM Ryann Tucker MA [facility] 04-09-2014 Do you have serious difficulty walking or climbing stairs No 04/09/2014 10:58 AM EDT Ryann Swartz MA No [facility] 04-09-2014 Do you have difficul ty dressing or bathing No 04/09/2014 10:58 AM EDT Ryann Swartz MA No [facility] 04-09-2014 Because of a physica l, mental, or emotional condition, do you have difficulty doing errands alone such as visiting a physician's office or shopping No 04/09/2014 10:58 AM EDT Ryann Swartz MA No [facility] Mental Status Date Assessment Result Facility 04-09-2014 Because of a physica l, mental, or emotional condition, do you have serious difficulty concentrating, remembering, or making decisions No 04/09/2014 10:58 AM EDT Ryann Swartz MA No [facility] Clinical Notes 06-08-2023 to 06-25-2025 Telephone Encounter - Italia Ruvalcaba LPN - 06/25/2025 9:11 AM EDTTelephone Encounter - Italia Ruvalcaba LPN - 06/25/2025 9:11 AM EDTOzzie Robertson Jr., MD - 06/21/2025 11:44 AM EDT Note Date & Type Note Facility 06-25-2025 Telephone encounter Note OV note from 06/21/[address] Robertson forwarded to Dr Rajat Norton. Italia Ruvalcaba LPN [facility] 06-25-2025 Miscellaneous Notes OV note from 06/21/[address] Robertson forwarded to Dr Rajat Norton. Italia Ruvalcaba LPN documented in this encounter [facility] 06-21-2025 Note HNO ID: [id number] Author: OZZIE ROBERTSON JR, MD Service: ? [...] to stop Namenda. States following someone on [employer] endorsing use of supplements. Still working. Lowest [...] Awake, alert, oriented (more content not included)... [facility] 06-21-2025 History of Presen t illness Narrative [...] to stop Namenda. States following someone on [employer] endorsing use of supplements. Still working. Lowest MOCA was 08/19/23: . Highest in 04/2024 after starting Namenda: . MODIFIED MOCA: Immediate recall: 04/01 Number repeat: 11/29 Sentence repeat: 12/30 Abstract: 12/30 Serial 7s: 11/30 Namin/3 A tap: 11/28 Orientation: 05/03 Delayed recall: 01/02 (01/30 with cues). Words being with F: 0 [...] which included preparing to see the patient, [id number] patient care, completing clinical documentation, obtaining and/or reviewing separately obtained history, performing a medically appropriate examination, counseling and educating the patient/family/caregiver, and communicating results to the patient/family/caregiver. documented in this encounter [facility] 05-28-2025 Radiology Diagnostic study note [facility] Imaging Services [address] [place] [address] Chest PA and Lateral MR#: [id number] Acct: [id number] Name: ERIN DYSON APOLLO Rep #: [id number] : 1955 F 69 From: Ai Johnston MD PCP: Dr. Rajat Norton DO Status: REG CLI Study:Chest PA and Lateral Date of Exam: 05/28/25 Exam# [id number] Ordering Dr: Emelia Norton ra, DO PROCEDURE: CHEST PA AND LATERAL [...] chest. Reading Location: [facility] CC: Dr. 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 Robertson as planned in April. documented in [facility] encounter[facility]03-[facility]-2025 NoteHNO ID: [id number] Author: DANNI GURROLA PA-C Service: ? Author Type: Physician Fish Pitcher Type: Progress Notes Filed: 02/12/2025 16:07 Note Text: [facility] Name: Erin Dyson Age: [age] year old Gender: female Primary Care Provider: Rajat Norton DO Assessment/Plan: 02/12/2025 - General NeurologyDanni PA-C [...] states she had an EKG done at [facility] but is unsure how long ago. There [...] 400 Units by mouth (more content not included)...[facility]03-18-2025 History of Present illness Narrative* Danni Gurrola PA-C - 02/12/2025 3:35 PM EDT Images from the original note were not included. [facility] Name: Erin A Karis Age: [age] year old Gender: female Primary [...] states she had an EKG done at [facility] but is unsure how long ago. There [...] However, patient not wanting to increase dose [id number] BID to 10mg BID at this time. [...] I malformation.... This note was dictated using [employer] speech recognition software and may contain some [...] which included preparing to see the patient, tgah-[id number]-uoda patient care, completing clinical documentation, obtaining and/or reviewing separately obtained history, performing a medically appropriate examination, counseling and educating the pat ient/family/caregiver, and ordering medications, tests, or procedures. * Nohemy Dudley LPN - 02/12/2025 3:33 PM EDT documented in this encounterL[facility]03-18-2025 NoteHNO ID: [id number] Author: NOHEMY DUDLEY LPN Service: ? Author Type: LICENSED NURSE Type: Progress Notes Filed: 02/12/2025 16:07 Note Text:[facility]03-04-2025 Evaluation note* Diagnosis Onset Date Resolution Status Admit Date Cat scratch of left hand acute January 29, 2025 11:38am [facility] Work Phone: [phone]) 836-400703-04-2025 Evaluation note* Diagnosis Onset Date Resolution Status Admit Date Cat scratch of left hand acute January 29, 2025 11:38am URI (upper respiratory infection) acute May 19, 2025 11:45am [facility] Work Phone: [phone]) 918-469502-27-2025 Telephone encounter Note* Telephone Encounter - Nohemy Dudley LPN - 01/24/2025 4:12 PM EST Called patient, no answer. Left voicemail that there are no sooner appointment. Nohemy Dudley LPN January 24, 2025 4:17 PM [facility]02-27-2025 Miscellaneous Notes* Telephone Encounter - Nohemy [...] 24, 2025 3:18 PM documented in this encounterL[facility]02-27-2025 Telephone encounter Note * Telephone Encounter [...] Alysha Torres January 24, 2025 3:18 PM [facility]01-28-2025 Telephone encounter Note* Telephone Encounter - [...] to get one done. Geneva Mejia LPN [facility]01-28-2025 Miscellaneous Notes* Telephone Encounter - Geneva [...] done. Geneva Mejia LPN documented in this encounterL[facility]12-27-2024 Telephone encounter Note * Telephone Encounter - Ozzie Robertson Jr., MD - 11/23/2024 6:27 PM EST Please schedule pt follow up with Mason BOWEN to review meds and discuss further treatment options. Will order ECG. Ozzie Robertson MD [facility]12-27-2024 Miscellaneous Notes* Telephone Encounter - Ozzie [...] Donepezil. Gricelda Reyez RN documented in this encounterLima [facility] Hospital12-27-2024 Telephone encounter Note * Telephone Encounter [...] Dudley LPN November 23, 2024 3:28 PM [facility]12-27-2024 Telephone encounter Note* Telephone Encounter - Ozzie Robertson Jr., MD - 11/23/2024 2:48 PM EST Please see if pt has had recent ECG. If not, would like pt to have one to confirm that Aricept would be safe from cardiac standpoint. Ozzie Robertson MD [facility]12-27-2024 Telephone encounter Note* Telephone Encounter - Gricelda [...] Namenda to start Donepezil. Gricelda Reyez RN [facility]12-06-2024 NoteHNO ID: [id number] Author: OZZIE ROBERTSON JR, MD Service: ? [...] and ADRs. Discussed pr (more content not included)...[facility]12-06-2024 History of Present illness Narrative* Ozzie Robertson [...] However, patient not wanting to increase dose [id number] BID to 10mg BID at this time. Encouraged brain exercises, social interaction. No restrictions at this time. Reviewed with pt SE and ADRs. Discussed prognosis of degenerative processes. Will have patient follow up in 6 months or sooner prn. Ozzie Robertson MD I spent a total of 22 minutes on the date of the service which included preparing to see the patient, ikge-tz-lphi patient care, completing clinical documentation, obtaining and/or reviewing separately obtained history, performing a medically appropriate examination, counseling and educating the pat ient/family/caregiver, ordering medications, tests, or procedures, and communicating results to thepatient/family/caregiver. Medical Decision Making: Problems: Low: Stable chronic illness Risk: Moderate: Drug management Medical Decision Making Level: 3 - Low * Nohemy Dudley LPN - 11/02/2024 3:18 PM EST documented in this encounterLima [facility] Hospital12-06-2024 NoteHNO ID: [id number] Author: NOHEMY DUDLEY LPN Service: ? Author Type: LICENSED NURSE Type: Progress Notes Filed: 11/02/2024 15:58 Note Text:[facility]09-03-2024 Telephone encounter Note* Telephone Encounter - Jesika Luther RN - 07/31/2024 8:27 AM EDT Patient has appointment scheduled with provider on 11/02/2024. Jesika Luther RN [facility]09-03-2024 Miscellaneous Notes* Telephone Encounter - Jesika [...] with this provider/department: No Transferred pt to pharmacy billing adjudicator to get 6 month follow up apt booked. Requested Prescriptions Pending Prescriptions Disp Refills memantine (NAMENDA) 5 mg tablet 180 tablet 0 Sig: Take 1 tablet by mouth two times a day. Pavithra Lucio LPN July 31, 2024 8:21 AM documented in this encounterLima [facility] Hospital09-03-2024 Telephone encounter Note * Telephone Encounter [...] with this provider/department: No Transferred pt to pharmacy billing adjudicator to get 6 month follow up apt booked. Requested Prescriptions Pending Prescriptions Disp Refills memantine (NAMENDA) 5 mg tablet 180 tablet 0 Sig: Take 1 tablet by mouth two times a day. Pavithra Lucio LPN July 31, 2024 8:21 AM [facility]06-07-2024 History of Present illness Narrative* Ozzie [...] expresses no interest in being seen in [place] at the [facility] and would not want [...] that at this time, lost connection with [facility] due to system downtime. MOCA was completed. [...] which included preparing to see the patient, jdzf-yv-xevs patient care, completing clinical documentation, obtaining and/or reviewing separately obtained history, performing a medically appropriate examination, counseling and educating the pat ient/family/caregiver, ordering medications, tests, or procedures, and communicating results to thepatient/family/caregiver. documented in this encounterLima [facility] Hospital05-13-2024 Telephone encounter Note * Telephone Encounter - Radha Fermin LPN - 04/09/2024 2:10 PM EDT Please see attached labs: Scan on 04/09/2024 9:20 AM by Provider, External, PA-C: Miscellaneous Lab Radha Fermin LPN [facility]05-13-2024 Miscellaneous Notes* Telephone Encounter - Radha Fermin LPN - 04/09/2024 2:10 PM EDT Please see attached labs: Scan on 04/09/2024 9:20 AM by Provider, OLVIN Valenzuela: Miscellaneous Lab Radha Fermin LPN * Telephone [...] expresses no interest in being [facility] [place] [facility] and [...] you. Jesika Luther RN. documented in this encounterLima [facility] Hospital05-13-2024 Telephone encounter Note * Telephone Encounter - Radha Fermin LPN - 04/09/2024 8:19 AM EDT Fax request sent to PCP for lab results. Radha Fermin LPN [facility]05-10-2024 Telephone encounter Note* Telephone Encounter - [...] expresses no interest in being seen in [place] at the [facility] and would not want [...] reeval by MOCA. Ozzie Robertson MD I [facility]05-10-2024 Telephone encounter Note* Telephone Encounter - [...] Please advise. Thank you. Jesika Luther RN. [facility]04-09-2024 Discharge summary Author Fermin Lynch [facility] March 06, 2024 10:17am Note Date/Time March 06, 2024 10:1 7am [facility] Physical Therapy [facility] [address] [place] [address] / REHABILITATION SERVICES DISCHARGE SUMMARY MR#: [id number] Acct: [id number] Name: ERIN DYSON Rep #: [id number] : 1955 68 From: Fermin BLEDSOE T Referring Dr.: Dr. Dakota Alba MD Status: REG RCR Insurance: [employer]/[facility] MEDICARE A ONLY Patient Information Patient [...] Dr. Rajat Norton, DO ~ CLS Signed [facility] Work Phone: [phone]) 989-388303-12-2024 Miscellaneous Notes* Telephone Encounter - Pavithra Lucio [...] at 6 pm? Please review and advise, Jesiak Luther RN documented in this encounterLima [facility] Hospital02-02-2024 History of Present illness Narrative* Ozzie [...] expresses no interest in being seen in [place] at the [facility] and would not want [...] which included preparing to see the patient, esyq-hc-ufsz patient care, completing clinical documentation, obtaining and/or reviewing separately obtained history, performing a medically appropriate examination, counseling and educating the pa tient/family/caregiver, ordering medications, tests, or procedures, and communicating results to the patient/family/caregiver. Teresa Vaughan LPN - 12/30/2023 8:58 AM EST documented in this encounterLima [facility] Hospital12-18-2023 Miscellaneous Notes* Telephone Encounter - Maureen Garrison - 11/14/2023 11:08 AM EST 1st attempt, left VM about canceled appointment with Danni Gurrola on 01/13. Need to reschedule. documented in this encounterLima [facility] Hospital12-15-2023 Miscellaneous Notes* Telephone Encounter - Pavithra [...] advise, Gricelda Reyez RN documented in this encounterLima [facility] Hospital11-15-2023 Miscellaneous Notes* Telephone Encounter - Danni Gurrola PA-C - 10/12/2023 9:15 AM EST Sent Namenda to [facility] pharmacy. * Telephone Encounter - Geneva Mejia LPN - 10/11/2023 4:15 PM EST Pt reports she went to hand picker memantine 5 mg from [facility] and was advised that insurance requires a prior auth for this med. Geneva Mejia LPN documented in this encounterLima Memorial Hospital11-08-2023 Miscellaneous Notes* Telephone Encounter - Radha Fermin LPN - 10/05/2023 4:04 PM EST TC to pt, scheduled October 112022 with Danni Gurrola. Results faxed to PCP per request. Radha Fermin LPN * Telephone Encounter - Ozzie Robertson Jr., MD - 10/05/2023 3:19 PM EST Please get pt sooner appt with AGUSTÍN [...] Norton. Saw Higuera LPN documented in this encounterLima [facility] Hospital11-07-2023 History of Present illness Narrative* Kerry Beltre RT(Joyce) - 10/04/2023 1:00 PM EST Radiology Service [...] 04, 2023 1:09 PM documented in this encounterLima [facility] Hospital09-22-2023 History of Present illness Narrative* Ozzie [...] prior head imaging. MODIFIED MOCA: Immediate Recall: /5 Repeat numbers: 2/2 Repeat sentence: 2/2 Serial 7s: 100-97 0/3 Abstract: 11/29 Orientation: [...] which included preparing to see the patient, ibkm-dn-jkkj patient care, completing clinical documentation, obtaining and/or reviewing separately obtained history, performing a medically appropriate examination, counseling and educating the pa tient/family/caregiver, and ordering medications, tests, or procedures. * Radha Fermin LPN - 2023 10:27 AM EDT There is no data to display for this encounter documented in this encounterLima Memorial Hospital08-08-2023 Discharge summary Author Karime Ariza [facility] July 05, 2023 7:55am Note Date/Time July 05, 2023 7:5 5am [facility] [address] [place] [address] / REHABILITATION SERVICES DISCHARGE SUMMARY MR#: [id number] Acct: [id number] Name: ERIN DYSON Rep #: [id number] : 1955 67 From: Karime Barbosa Referring Dr.: Yamilex Arnold DO Status: REG RCR Insurance: [employer]/[facility] SELF PAY INSURANCE Discharge Summary D/C [...] PT back to . Pt will call Dr bishop today D/C Information Discharge Comments: DC PT back to Dr. ramirez sentence: If there are questions or concerns regarding this patient's physical therapy, please feel free to call me at [phone]. Thank you for the referral of thispatient. Sincerely, Karime Ariza, GONZALO Balance/Gait/Functional tests Balance/Special Test Scores Quick DASH Score: 47.7250 <Electronically signed by Karime Ariza MPT> 07/05/23 0758 CC: Dr. Rajat Notron DO; Yamilex Arnold, DO ~ Signed [facility] Work Phone: 1(739) 342-194407-12-2023 Miscellaneous Notes* Telephone Encounter - Charisse Ramirez [...] chart. Radha Fermin LPN documented in [facility] encounterDunlap [facility] noteNo assessment information availableWTwin City Hospital Work Phone: evaluation note* Diagnosis Onset Date Resolution Status Hemorrhoid chronic Acute bronchitis [facility] Work Phone: evaluation note* Diagnosis Onset Date Resolution Status Acute bronchitis [facility] Work Phone: evaluation note* Diagnosis Memory loss- Primary Cognitive decline Unspecified persistent mental disorders due to conditions classified elsewhere documented in this encounter [facility] note* Diagnosis Memory loss Cognitive decline Unspecified persistent mental disorders due to conditions classified elsewhere documented in this encounter [facility] note* Diagnosis Cognitive decline- Primary Unspecified persistent mental disorders due to conditions classified elsewhere Memory loss documented in this encounter [facility] note* Diagnosis Onset Date Resolution Status COVID-19 [facility] Work Phone: Evaluation note* Diagnosis Cognitive decline- Primary Unspecified persistent mental disorders due to conditions classified elsewhere Memory loss documented in this encounter [facility] note* Diagnosis Dementia without behavioral disturbance, psychotic disturbance, mood disturbance, or anxiety, unspecified dementia severity, unspecified dementia type (HCC)- Primary At high risk for adverse medication event documented in this encounter [facility] note* Diagnosis Dementia without behavioral disturbance, psychotic disturbance, mood disturbance, or anxiety, unspecified dementia severity, unspecified dementia type (HCC)- Primary Cognitive decline Unspecified persistent mental disorders due to conditions classified elsewhere Memory loss documented in this encounter [facility] note* Diagnosis Dementia without behavioral disturbance, psychotic disturbance, mood disturbance, or anxiety, unspecified dementia severity, unspecified dementia type (HCC)- Primary Family history of dementia Family history of other neurological diseases Cognitive decline Unspecified persistent mental disorders due to conditions classified elsewhere Memory loss documented [facility] this [facility] [place] Name Dates Details How to Access [employer] Online using Patient Portal and [employer]rd [employer] Apps Indication:Non-smoker Start:08-Dec-2020 Instruction Type:Patient Education [...] Informa tion Online using Patient Portal and [employer] Apps Indication:Non-smoker Start:08-Dec-2020 Instruction Type:Patient Education Patient [...] Informa tion Online using Patient Portal and [employer] Apps Indication:Non-smoker Start:07-May-2021 Instruction Type:Patient Education Patient Instructions Indication:Non-smoker Start:07-May-2021 Instruction Type:Provider Instructions for Treatment How to Access Health Informa tion Online using Patient Portal and [employer] Apps Indication:Non-smoker Start:08-Dec-2020 Instruction Type:Patient Education Patient [...] tion Online using Patient Portal and [employer]rd [employer] Apps Indication:Chest pain Start:09-Jun-2021 Instruction Type:Patient Education How to Access Health Informa tion Online using Patient Portal and [employer] Apps Indication:Non-smoker Start:08-Dec-2020 Instruction Type:Patient Education [...] tion Online using Patient Portal and [employer] Apps Indication:Chest pain Start:09-Jun-2021 Instruction Type:Patient Education How to Access Health Informa tion Online using Patient Portal and [employer] Apps Indication:Non-smoker Start:08-Dec-2020 Instruction Type:Patient Education [...] tion Online using Patient Portal and [employer] Apps Indication:Chest pain Start:09-Jun-2021 Instruction Type:Patient Education How to Access Health Informa tion Online using Patient Portal and [employer] Apps Indication:Non-smoker Start:08-Dec-2020 Instruction Type:Patient Education [...] tion Online using Patient Portal and [employer] Apps Indication:Non-smoker Start:14-Jul-2021 Instruction Type:Patient Education Patient Instructions Indication:Chest pain Start:09-Jun-2021 Instruction Type:Provider Instructions for Treatment How to Access Health Informa tion Online using Patient Portal and [employer]rd [employer] Apps Indication:Chest pain Start:09-Jun-2021 Instruction Type:Patient Education How to Access Health Informa tion Online using Patient Portal and [employer] Apps Indication:Non-smoker Start:08-Dec-2020 Instruction Type:Patient Education [...] tion Online using Patient Portal and [employer] Apps Indication:Non-smoker Start:14-Jul-2021 Instruction Type:Patient Education Patient Instructions Indication:Chest pain Start:09-Jun-2021 Instruction Type:Provider Instructions for Treatment How to Access Health Informa tion Online using Patient Portal and [employer] Apps Indication:Chest pain Start:09-Jun-2021 Instruction Type:Patient Education How to Access Health Informa tion Online using Patient Portal and [employer] Apps Indication:Non-smoker Start:08-Dec-2020 Instruction Type:Patient Education [...] tion Online using Patient Portal and [employer] Apps Indication:Non-smoker Start:14-Jul-2021 Instruction Type:Patient Education Patient Instructions Indication:Chest pain Start:09-Jun-2021 Instruction Type:Provider Instructions for Treatment How to Access Health Informa tion Online using Patient Portal and [employer] Apps Indication:Chest pain Start:09-Jun-2021 Instruction Type:Patient Education How to Access Health Informa tion Online using Patient Portal and [employer] Apps Indication:Non-smoker Start:08-Dec-2020 Instruction Type:Patient Education [...] tion Online using Patient Portal and [employer] Apps Indication:Non-smoker Start:14-Jul-2021 Instruction Type:Patient Education Patient Instructions Indication:Chest pain Start:09-Jun-2021 Instruction Type:Provider Instructions for Treatment How to Access Health Informa tion Online using Patient Portal and [employer] Apps Indication:Chest pain Start:09-Jun-2021 Instruction Type:Patient Education How to Access Health Informa tion Online using Patient Portal and [employer] Apps Indication:Non-smoker Start:08-Dec-2020 Instruction Type:Patient Education [...] tion Online using Patient Portal and [employer] Apps Indication:Hyperlipidemia Start:29-Dec-2021 Instruction Type:Patient Education Patient Instructions Indication:Non-smoker Start:14-Jul-2021 Instruction Type:Provider Instructions for Treatment How to Access Health Informa tion Online using Patient Portal and [employer] Apps Indication:Non-smoker Start:14-Jul-2021 Instruction Type:Patient Education Patient Instructions Indication:Chest pain Start:09-Jun-2021 Instruction Type:Provider Instructions for Treatment How to Access Health Informa tion Online using Patient Portal and [employer]rd [employer] Apps Indication:Chest pain Start:09-Jun-2021 Instruction Type:Patient Education How to Access Health Informa tion Online using Patient Portal and [employer]rd [employer] Apps Indication:Non-smoker Start:08-Dec-2020 Instruction Type:Patient Education [...] tion Online using Patient Portal and [employer]rd [employer] Apps Indication:Hyperlipidemia Start:29-Dec-2021 Instruction Type:Patient Education Patient Instructions Indication:Non-smoker Start:14-Jul-2021 Instruction Type:Provider Instructions for Treatment How to Access Health Informa tion Online using Patient Portal and 3rd [employer] Apps Indication:Non-smoker Start:14-Jul-2021 Instruction Type:Patient Education Patient Instructions Indication:Chest pain Start:09-Jun-2021 Instruction Type:Provider Instructions for Treatment How to Access Health Informa tion Online using Patient Portal and 3rd [employer] Apps Indication:Chest pain Start:09-Jun-2021 Instruction Type:Patient Education How to Access Health Informa tion Online using Patient Portal and [employer]rd [employer] Apps Indication:Non-smoker Start:08-Dec-2020 Instruction Type:Patient Education [...] tion Online using Patient Portal and [employer]rd [employer] Apps Indication:Unspecified Diagnosis Start:28-Apr-2022 Instruction Type:Patient Education Patient Instructions Indication:Hyperlipidemia Start:29-Dec-2021 Instruction Type:Provider Instructions for Treatment How to Access Health Informa tion Online using Patient Portal and [employer]rd [employer] Apps Indication:Hyperlipidemia Start:29-Dec-2021 Instruction Type:Patient Education Patient Instructions Indication:Non-smoker Start:14-Jul-2021 Instruction Type:Provider Instructions for Treatment How to Access Health Informa tion Online using Patient Portal and [employer]rd [employer] Apps Indication:Non-smoker Start:14-Jul-2021 Instruction Type:Patient Education Patient Instructions Indication:Chest pain Start:09-Jun-2021 Instruction Type:Provider Instructions for Treatment How to Access Health Informa tion Online using Patient Portal and [employer]rd [employer] Apps Indication:Chest pain Start:09-Jun-2021 Instruction Type:Patient Education How to Access Health Informa tion Online using Patient Portal and [employer]rd [employer] Apps Indication:Non-smoker Start:08-Dec-2020 Instruction Type:Patient Education [...] tion Online using Patient Portal and [employer]rd [employer] Apps Indication:COVID Start:28-Apr-2022 Instruction Type:Patient Education Patient Instructions Indication:Hyperlipidemia Start:29-Dec-2021 Instruction Type:Provider Instructions for Treatment How to Access Health Informa tion Online using Patient Portal and [employer]rd [employer] Apps Indication:Hyperlipidemia Start:29-Dec-2021 Instruction Type:Patient Education Patient Instructions Indication:Non-smoker Start:14-Jul-2021 Instruction Type:Provider Instructions for Treatment How to Access Health Informa tion Online using Patient Portal and [employer]rd [employer] Apps Indication:Non-smoker Start:14-Jul-2021 Instruction Type:Patient Education Patient Instructions Indication:Chest pain Start:09-Jun-2021 Instruction Type:Provider Instructions for Treatment How to Access Health Informa tion Online using Patient Portal and [employer]rd [employer] Apps Indication:Chest pain Start:09-Jun-2021 Instruction Type:Patient Education How to Access Health Informa tion Online using Patient Portal and [employer]rd [employer] Apps Indication:Non-smoker Start:08-Dec-2020 Instruction Type:Patient Education [...] tion Online using Patient Portal and [employer]rd [employer] Apps Indication:BMI 24.0-24.9, adult Start:09-Jul-2022 Instruction Type:Patient Education Patient Instructions Indication:COVID Start:28-Apr-2022 Instruction Type:Provider Instructions for Treatment How to Access Health Informa tion Online using Patient Portal and [employer]rd [employer] Apps Indication:COVID Start:28-Apr-2022 Instruction Type:Patient Education Patient Instructions Indication:Hyperlipidemia Start:29-Dec-2021 Instruction Type:Provider Instructions for Treatment How to Access Health Informa tion Online using Patient Portal and [employer]rd [employer] Apps Indication:Hyperlipidemia Start:29-Dec-2021 Instruction Type:Patient Education Patient Instructions Indication:Non-smoker Start:14-Jul-2021 Instruction Type:Provider Instructions for Treatment How to Access Health Informa tion Online using Patient Portal and [employer]rd [employer] Apps Indication:Non-smoker Start:14-Jul-2021 Instruction Type:Patient Education Patient Instructions Indication:Chest pain Start:09-Jun-2021 Instruction Type:Provider Instructions for Treatment How to Access Health Informa tion Online using Patient Portal and [employer]rd [employer] Apps Indication:Chest pain Start:09-Jun-2021 Instruction Type:Patient Education How to Access Health Informa tion Online using Patient Portal and [employer]rd [employer] Apps Indication:Non-smoker Start:08-Dec-2020 Instruction Type:Patient Education [...] tion Online using Patient Portal and [employer]rd [employer] Apps Indication:BMI 24.0-24.9, adult Start:09-Jul-2022 Instruction Type:Patient Education Patient Instructions Indication:COVID Start:28-Apr-2022 Instruction Type:Provider Instructions for Treatment How to Access Health Informa tion Online using Patient Portal and [employer]rd [employer] Apps Indication:COVID Start:28-Apr-2022 Instruction Type:Patient Education Patient Instructions Indication:Hyperlipidemia Start:29-Dec-2021 Instruction Type:Provider Instructions for Treatment How to Access Health Informa tion Online using Patient Portal and [employer]rd [employer] Apps Indication:Hyperlipidemia Start:29-Dec-2021 Instruction Type:Patient Education Patient Instructions Indication:Non-smoker Start:14-Jul-2021 Instruction Type:Provider Instructions for Treatment How to Access Health Informa tion Online using Patient Portal and [employer]rd [employer] Apps Indication:Non-smoker Start:14-Jul-2021 Instruction Type:Patient Education Patient Instructions Indication:Chest pain Start:09-Jun-2021 Instruction Type:Provider Instructions for Treatment How to Access Health Informa tion Online using Patient Portal and [employer]rd [employer] Apps Indication:Chest pain Start:09-Jun-2021 Instruction Type:Patient Education How to Access Health Informa tion Online using Patient Portal and [employer]rd [employer] Apps Indication:Non-smoker Start:08-Dec-2020 Instruction Type:Patient Education [...] tion Online using Patient Portal and [employer]rd [employer] Apps Indication:Non-smoker Start:11-Jan-2023 Instruction Type:Patient Education Patient Instructions Indication:BMI 24.0-24.9, adult Start:09-Jul-2022 Instruction Type:Provider Instructions for Treatment How to Access Health Informa tion Online using Patient Portal and 3rd [employer] Apps Indication:BMI 24.0-24.9, adult Start:09-Jul-2022 Instruction Type:Patient Education Patient Instructions Indication:COVID Start:28-Apr-2022 Instruction Type:Provider Instructions for Treatment How to Access Health Informa tion Online using Patient Portal and 3rd [employer] Apps Indication:COVID Start:28-Apr-2022 Instruction Type:Patient Education Patient Instructions Indication:Hyperlipidemia Start:29-Dec-2021 Instruction Type:Provider Instructions for Treatment How to Access Health Informa tion Online using Patient Portal and [employer]rd [employer] Apps Indication:Hyperlipidemia Start:29-Dec-2021 Instruction Type:Patient Education Patient Instructions Indication:Non-smoker Start:14-Jul-2021 Instruction Type:Provider Instructions for Treatment How to Access Health Informa tion Online using Patient Portal and [employer]rd [employer] Apps Indication:Non-smoker Start:14-Jul-2021 Instruction Type:Patient Education Patient Instructions Indication:Chest pain Start:09-Jun-2021 Instruction Type:Provider Instructions for Treatment How to Access Health Informa tion Online using Patient Portal and [employer]rd [employer] Apps Indication:Chest pain Start:09-Jun-2021 Instruction Type:Patient Education How to Access Health Informa tion Online using Patient Portal and [employer]rd [employer] Apps Indication:Non-smoker Start:08-Dec-2020 Instruction Type:Patient Education [...] tion Online using Patient Portal and [employer]rd [employer] Apps Indication:Non-smoker Start:11-Jan-2023 Instruction Type:Patient Education Patient Instructions Indication:BMI 24.0-24.9, adult Start:09-Jul-2022 Instruction Type:Provider Instructions for Treatment How to Access Health Informa tion Online using Patient Portal and 3rd [employer] Apps Indication:BMI 24.0-24.9, adult Start:09-Jul-2022 Instruction Type:Patient Education Patient Instructions Indication:COVID Start:28-Apr-2022 Instruction Type:Provider Instructions for Treatment How to Access Health Informa tion Online using Patient Portal and [employer]rd [employer] Apps Indication:COVID Start:28-Apr-2022 Instruction Type:Patient Education Patient Instructions Indication:Hyperlipidemia Start:29-Dec-2021 Instruction Type:Provider Instructions for Treatment How to Access Health Informa tion Online using Patient Portal and 3rd [employer] Apps Indication:Hyperlipidemia Start:29-Dec-2021 Instruction Type:Patient Education Patient Instructions Indication:Non-smoker Start:14-Jul-2021 Instruction Type:Provider Instructions for Treatment How to Access Health Informa tion Online using Patient Portal and 3rd [employer] Apps Indication:Non-smoker Start:14-Jul-2021 Instruction Type:Patient Education Patient Instructions Indication:Chest pain Start:09-Jun-2021 Instruction Type:Provider Instructions for Treatment How to Access Health Informa tion Online using Patient Portal and 3rd [employer] Apps Indication:Chest pain Start:09-Jun-2021 Instruction Type:Patient Education How to Access Health Informa tion Online using Patient Portal and [employer]rd [employer] Apps Indication:Non-smoker Start:08-Dec-2020 Instruction Type:Patient Education [...] tion Online using Patient Portal and [employer]rd [employer] Apps Indication:Left shoulder pain Start:12-Jul-2023 Instruction Type:Patient Education Patient Instructions Indication:Non-smoker Start:11-Jan-2023 Instruction Type:Provider Instructions for Treatment How to Access Health Informa tion Online using Patient Portal and [employer]rd [employer] Apps Indication:Non-smoker Start:11-Jan-2023 Instruction Type:Patient Education Patient Instructions Indication:BMI 24.0-24.9, adult Start:09-Jul-2022 Instruction Type:Provider Instructions for Treatment How to Access Health Informa tion Online using Patient Portal and 3rd [employer] Apps Indication:BMI 24.0-24.9, adult Start:09-Jul-2022 Instruction Type:Patient Education Patient Instructions Indication:COVID Start:28-Apr-2022 Instruction Type:Provider Instructions for Treatment How to Access Health Informa tion Online using Patient Portal and 3rd [employer] Apps Indication:COVID Start:28-Apr-2022 Instruction Type:Patient Education Patient Instructions Indication:Hyperlipidemia Start:29-Dec-2021 Instruction Type:Provider Instructions for Treatment How to Access Health Informa tion Online using Patient Portal and 3rd [employer] Apps Indication:Hyperlipidemia Start:29-Dec-2021 Instruction Type:Patient Education Patient Instructions Indication:Non-smoker Start:14-Jul-2021 Instruction Type:Provider Instructions for Treatment How to Access Health Informa tion Online using Patient Portal and 3rd [employer] Apps Indication:Non-smoker Start:14-Jul-2021 Instruction Type:Patient Education Patient Instructions Indication:Chest pain Start:09-Jun-2021 Instruction Type:Provider Instructions for Treatment How to Access Health Informa tion Online using Patient Portal and 3rd [employer] Apps Indication:Chest pain Start:09-Jun-2021 Instruction Type:Patient Education How to Access Health Informa tion Online using Patient Portal and 3rd [employer] Apps Indication:Non-smoker Start:08-Dec-2020 Instruction Type:Patient Education [...] tion Online using Patient Portal and 3rd [employer] Apps Indication:Left shoulder pain Start:12-Jul-2023 Instruction Type:Patient Education Patient Instructions Indication:Non-smoker Start:11-Jan-2023 Instruction Type:Provider Instructions for Treatment How to Access Health Informa tion Online using Patient Portal and 3rd [employer] Apps Indication:Non-smoker Start:11-Jan-2023 Instruction Type:Patient Education Patient Instructions Indication:BMI 24.0-24.9, adult Start:09-Jul-2022 Instruction Type:Provider Instructions for Treatment How to Access Health Informa tion Online using Patient Portal and 3rd [employer] Apps Indication:BMI 24.0-24.9, adult Start:09-Jul-2022 Instruction Type:Patient Education Patient Instructions Indication:COVID Start:28-Apr-2022 Instruction Type:Provider Instructions for Treatment How to Access Health Informa tion Online using Patient Portal and 3rd [employer] Apps Indication:COVID Start:28-Apr-2022 Instruction Type:Patient Education Patient Instructions Indication:Hyperlipidemia Start:29-Dec-2021 Instruction Type:Provider Instructions for Treatment How to Access Health Informa tion Online using Patient Portal and 3rd [employer] Apps Indication:Hyperlipidemia Start:29-Dec-2021 Instruction Type:Patient Education Patient Instructions Indication:Non-smoker Start:14-Jul-2021 Instruction Type:Provider Instructions for Treatment How to Access Health Informa tion Online using Patient Portal and [employer] Apps Indication:Non-smoker Start:14-Jul-2021 Instruction Type:Patient Education Patient Instructions Indication:Chest pain Start:09-Jun-2021 Instruction Type:Provider Instructions for Treatment How to Access Health Informa tion Online using Patient Portal and 3rd [employer] Apps Indication:Chest pain Start:09-Jun-2021 Instruction Type:Patient Education How to Access Health Informa tion Online using Patient Portal and [employer] Apps Indication:Non-smoker Start:08-Dec-2020 Instruction Type:Patient Education [...] CONTRAST MATERIAL Ozzie Robertson Jr., MD [address] [place] [address] [place] [id number] Referral ID Status Reason Start Date Expiration Date V isits Requested Visits Authorized [id number] Closed Auto-Generate d Referral 09/15/2023 03/13/[address] [facility] for referral (narrative)No reason for referral information availableWT[facility]: Reason for visit Narrative* Diagnostic Procedure Only (Routine) - Closed Specialty Diagnoses / Procedures Referred By Mary barbosa Referred To Contact MR IMAGING Diagnoses Memory loss Cognitive decline Procedures MRI BRAIN WO IVCON MRI BRAIN BRAIN STEM W/O CONTRAST MATERIAL Ozzie Robertson Jr., MD [address] [place] [address] [place] [address] Referral ID Status Reason Start Date Expiration Date V isits Requested Visits Authorized [id number] Closed Auto-Generate d Referral 09/15/2023 03/13/2024 1 1 [facility] Family History No Family History Records [...] Informa tion Online using Patient Portal and [employer] Apps Indication:Non-smoker Start:08-Dec-2020 Instruction Type:Patient Education [...] Informa tion Online using Patient Portal and [employer] Apps Indication:Non-smoker Start:08-Dec-2020 Instruction Type:Patient Education [...] Will Yes November 04 4:07pm Power of Roving Frame Tender Yes November 04, 2022 4:07pm Advance Directive Response Recorded Date/ Time Living Will Yes November 04 5:07pm Power of Roving Frame Tender Yes November 04, 2022 5:07pm Chief Complaint [...] April 292024 11:45am Chief Complaint Admit Date RIGHT SHOULDER PAIN [...] SCREENING/POST ELI June 04, 2025 12:50 pm LABS July 05, 2025 6:3 0am Reason for Referral Specialty Diagnoses / Procedures Referred By Mary barbosa Referred To Contact MR IMAGING Diagnoses Memory loss Cognitive decline Procedures MRI BRAIN WO IVCON MRI BRAIN BRAIN STEM W/O CONTRAST MATERIAL Ozzie Robertson Jr., MD [address] [place] [address] [place] [id number] Referral ID Status Reason Start Date Expiration Date Visits Requested Visits Authorized [id number] Pending Review Auto-Generat ed Referral 2023 09/17/2024 1 1 Additional Source Comments INFORMATION SOURCE (unrecogn ized section and content) DATE CREATED AUTHOR 01/11/2023 [facility] DATE CREATED AUTHOR AUTHOR'S ORGANIZ ATION 06/26/2025 [facility] DATE CREATED AUTHOR AUTHOR'S ORGANIZ ATION 07/11/2025 [facility] Care Teams (unrecognized sec tion and content) Team Status: Active Member Role Status Dates Dr. Kerry Francois DO Family Provider Active Dr. Rajat Norton , DO Primary Care Provider Active Team Status: [...] Care Provider, Referring P rovider Active Agustin BOWEN, PA Attending Provider Active Team Status: Active Member Role Status Dates Dr. Rajat Norton DO Primary Care Provider Active Dr. Orestes Kumari MD Attending Provider Active Team Status: Inactive Member Role Status Dates Dr. Rajat Norton DO Primary Care Provider Active Agustin BOWEN, PA Attending Provider, Referring Provi merna Active Sales Project Coordinator Relationship Specialty Start Date End Date Bailey Resendez MD PCP - General Internal Medicine 07/14/11 Team Status: Inactive Member Role Status Dates Dr. Rajat Norton DO Primary Care Provider Active Yamilex Arnold DO Attending Provider, Referring Pr ovider Active Team Status: Inactive Member Role Status Dates Dr. Rajat Norton DO Primary Care Provider Active ANDRÉS Diamond Attending Provider, Referring Provide r Active Sales Project Coordinator Relationship Specialty Start Date End Date Bailey Resendez MD PCP - General Internal Medicine 07/14/11 Sales Project Coordinator Relationship Specialty Start Date End Date Rajat Norton DO [address] [facility] [address] [place] [address] PCP - General Internal Medicine 10/04/23 Sales Project Coordinator Relationship Specialty Start Date End Date Rajat Norton DO [address] [facility] [address] [place] [address] PCP - General Internal Medicine 10/04/23 Sales Project Coordinator Relationship Specialty Start Date End Date Rajat Norton DO [address] [facility] [address] [place] [address] PCP - General Internal Medicine 10/04/23 Sales Project Coordinator Relationship Specialty Start Date End Date Rajat Norton DO [address] [facility] [address] [place] [address] PCP - General Internal Medicine 10/04/23 Sales Project Coordinator Relationship Specialty Start Date End Date Rajat Notron DO [address] [facility] [address] [place] [address] PCP - General Internal Medicine 10/04/23 Team Status: Inactive Member Role Status Dates Dr. Rajat Norton , DO Primary Care Provider, Referring P rovider Active Juan BOWEN, PA Attending Provider Active Team Status: Active Member Role Status Dates Dr. Rajat Norton DO Primary Care Provider Active Dr. Joey Rose , DO Other Provider Active Dr. Dakota Alba MD Attending Provider, Referring P rovider Active Team Status: Inactive Member Role Status Dates Dr. Rajat Norton , DO Primary Care Provider Active Juan BOWEN, PA Attending Provider, Referring Pr ovider Active Team Status: Active Member Role Status Dates Dr. Rajat Norton DO Primary Care Provider Active Health Risk Assessment Attending Provider, Referring P roaider Active Team Status: Inactive Member Role Status Dates Dr. Rajat Norton DO Primary Care Provider Active Dr. Joey Rose , Other Provider Active Dr. Dakota Alba MD Attending Provider, Referring P rovider Active Sales Project Coordinator Relationship Specialty Start Date End Date Rajat Norton DO [address] [facility] [address] [place] [address] PCP - General Internal Medicine 10/04/23 Sales Project Coordinator Relationship Specialty Start Date End Date Rajat Norton DO [address] [facility] [address] [place] [address] PCP - General Internal Medicine 10/04/23 Sales Project Coordinator Relationship Specialty Start Date End Date Rajat Norton DO [address] [facility] [address] [place] [address] PCP - General Internal Medicine 10/04/23 Sales Project Coordinator Relationship Specialty Start Date End Date Rajat Norton DO [address] [facility] [address] [place] [address] PCP - General Internal Medicine 10/04/23 Team [...] 16, 2025 End: April 16, 2025 Juan BOWEN, PA Attending Provider Active Start: April 16, 2025 End: April 16, 2025 Team Status: Inactive Member Role Status Dates Dr. Rajat Norton DO Primary Care Provider Active Start: May 02, 2025 End: May 02, 2025 Dr. Rajat Norton DO Attending Provider Active St art: May 02, 2025 End: May 02, 2025 Dr. Rajat Norton DO Referring Provider Active St art: May 02, 2025 End: May 02, 2025 Team Status: Active Member Role Status Dates Dr. Rajat Norton DO Primary Care Provider Active Start: May 02, 2025 Health Risk Assessment Attending Provider Active Start: May 02, 2025 Health Risk Assessment Referring Provider Active Start: May 02, 2025 Team Status: Inactive Member Role Status Dates Dr. Rajat Norton DO Primary Care Provider Active Start: May 19, 2025 End: May 19, 2025 Dr. Rajat Norton DO Referring Provider Active St art: May 19, 2025 End: May 19, 2025 Chidi Dale MERCHANDISE CLERK, MERCHANDISE CLERK-C Attending Provider Active S tart: May 19, 2025 End: May 19, 2025 Team Status: Inactive Member Role Status Dates Dr. Rajat Norton DO Primary Care Provider Active Start: May 20, 2025 End: May 20, 2025 Dr. Rajat Norton DO Referring Provider Active St art: May 20, 2025 End: May 20, 2025 Juan Miller PA, PA Attending Provider Active Start: May 20, 2025 End: May 20, 2025 Team Status: Active Member Role/Relationship Status Dates Dr. Rajat Norton DO Primary Care Provider Active Team Status: Inactive Member Role/Relationship Status Dates Dr. Rajat Norton DO Primary Care Provider Active Start: March 13, 2025 End: March 13, 2025 Dr. Rajat Norton DO Attending Provider Active St art: March 13, 2025 End: March 13, 2025 Dr. Rajat Norton DO Referring Provider Active St art: March 13, 2025 End: March 13, 2025 Team Status: Inactive Member Role/Relationship Status Dates Dr. Rjaat Norton DO Primary Care Provider Active Start: April 16, 2025 End: April 16, 2025 Dr. Rajat Norton DO Referring Provider Active St art: April 16, 2025 End: April 16, 2025 Juan Miller PA, PA Attending Provider Active Start: April 16, 2025 End: April 16, 2025 Team Status: Inactive Member Role/Relationship Status Dates Dr. Rajat Norton DO Primary Care Provider Active Start: May 02, 2025 End: May 02, 2025 Dr. Rajat Norton DO Attending Provider Active St art: May 02, 2025 End: May 02, 2025 Dr. Rajat Norton DO Referring Provider Active St art: May 02, 2025 End: May 02, 2025 Team Status: Active Member Role/Relationship Status Dates Dr. Rajat Norton DO Primary Care Provider Active Start: May 02, 2025 Health Risk Assessment Attending Provider Active Start: May 02, 2025 Health Risk Assessment Referring Provider Active Start: May 02, 2025 Team Status: Inactive Member Role/Relationship Status Dates Dr. Rajat Norton DO Primary Care Provider Active Start: May 19, 2025 End: May 19, 2025 Dr. Rajat Norton DO Referring Provider Active St art: May 19, 2025 End: May 19, 2025 Chidi Dale MERCHANDISE CLERK, MERCHANDISE CLERK-C Attending Provider Active S tart: May 19, 2025 End: May 19, 2025 Team Status: Inactive Member Role/Relationship Status Dates Dr. Rajat Norton DO Primary Care Provider Active Start: May 20, 2025 End: May 20, 2025 Dr. Rajat Norton DO Referring Provider Active St art: May 20, 2025 End: May 20, 2025 Juan M Wyles PA, PA Attending Provider Active Start: May 20, 2025 End: May 20, 2025 Team Status: Inactive Member Role/Relationship Status Dates Dr. Rajat Norton DO Primary Care Provider Active Start: May 20, 2025 End: May 20, 2025 Dr. Rajat Norton DO Referring Provider Active St art: May 20, 2025 End: May 20, 2025 ANDRÉS Ball Attending Provider Active Start: May 20, 2025 End: May 20, 2025 Team Status: Active Member Role/Relationship Status Dates Dr. Rajat Norton DO Primary Care Provider Active Start: May 28, 2025 Dr. Rajat Norton DO Referring Provider Active St art: May 28, 2025 Dr. Phillip Borrego MD Attending Provider Active S tart: May 28, 2025 Team Status: Inactive Member Role/Relationship Status Dates Dr. Rajat Norton DO Primary Care Provider Active Start: May 28, 2025 End: May 28, 2025 Dr. Rajat Norton DO Attending Provider Active St art: May 28, 2025 End: May 28, 2025 Dr. Rajat Norton DO Referring Provider Active St art: May 28, 2025 End: May 28, 2025 Team Status: Active Member Role/Relationship Status Dates Dr. Rajat Norton DO Primary Care Provider Active Start: June 04, 2025 Dr. Rajat Norton DO Attending Provider Active St art: June 04, 2025 Dr. Rajat Norton DO Referring Provider Active St art: June 04, 2025 Team Status: Inactive Member Role/Relationship Status Dates Dr. Rajat Norton DO Primary Care Provider Active Start: June 04, 2025 End: June 04, 2025 Dr. Rajat Norton DO Attending Provider Active St art: June 04, 2025 End: June 04, 2025 Dr. Rajat Norton DO Referring Provider Active St art: June 04, 2025 End: June 04, 2025 Team Status: Inactive Member Role/Relationship Status Dates Dr. Rajat Norton DO Primary Care Provider Active Start: July 05, 2025 End: July 05, 2025 Dr. Rajat Norton , DO Attending Provider Active St art: July 05, 2025 End: July 05, 2025 Goals (unrecognized section and content) Goals [...] or prosecute any alcohol or drug abuse patient.[facility] the event this information is protected by the Federal Confidentiality of Alcohol and Drug Abuse Patient Records regulations: The Federal rules restrict any use of the information to criminally investigate or prosecute any alcohol or drug abuse patient.[facility] HospitalIn the event this information is protected by the Federal Confidentiality of Alcohol and Drug Abuse Patient Records regulations: The Federal rules restrict any use of the information to criminally investigate or prosecute any alcohol or drug abuse patient.[facility]In the event this information is protected by the Federal Confidentiality of Alcohol and Drug Abuse Patient Records regulations: The Federal rules restrict any use of the information to criminally investigate or prosecute any alcohol or drug abuse patient.[facility]In the event this information is protected by the Federal Confidentiality of Alcohol and Drug Abuse Patient Records regulations: The Federal rules restrict any use of the information to criminally investigate or prosecute any alcohol or drug abuse patient.[facility] HospitalIn the event this information is protected by the Federal Confidentiality of Alcohol and Drug Abuse Patient Records regulations: The Federal rules restrict any use of the information to criminally investigate or prosecute any alcohol or drug abuse patient.[facility]In the event this information is protected by the Federal Confidentiality of Alcohol and Drug Abuse Patient Records regulations: The Federal rules restrict any use of the information to criminally investigate or prosecute any alcohol or drug abuse patient.[facility] HospitalIn the event this information is protected by the Federal Confidentiality of Alcohol and Drug Abuse Patient Records regulations: The Federal rules restrict any use of the information to criminally investigate or prosecute any alcohol or drug abuse patient.[facility]In the event this information is protected by the Federal Confidentiality of Alcohol and Drug Abuse Patient Records regulations: The Federal rules restrict any use of the information to criminally investigate or prosecute any alcohol or drug abuse patient.[facility]In the event this information is protected by the Federal Confidentiality of Alcohol and Drug Abuse Patient Records regulations: The Federal rules restrict any use of the information to criminally investigate or prosecute any alcohol or drug abuse patient.[facility] HospitalIn the event this information is protected by the Federal Confidentiality of Alcohol and Drug Abuse Patient Records regulations: The Federal rules restrict any use of the information to criminally investigate or prosecute any alcohol or drug abuse patient.[facility] HospitalIn the event this information is protected by the Federal Confidentiality of Alcohol and Drug Abuse Patient Records regulations: The Federal rules restrict any use of the information to criminally investigate or prosecute any alcohol or drug abuse patient.[facility] HospitalIn the event this information is protected by the Federal Confidentiality of Alcohol and Drug Abuse Patient Records regulations: The Federal rules restrict any use of the information to criminally investigate or prosecute any alcohol or drug abuse patient.[facility] HospitalIn the event this information is protected by the Federal Confidentiality of Alcohol and Drug Abuse Patient Records regulations: The Federal rules restrict any use of the information to criminally investigate or prosecute any alcohol or drug abuse patient.[facility]In the event this information is protected by the Federal Confidentiality of Alcohol and Drug Abuse Patient Records regulations: The Federal rules restrict any use of the information to criminally investigate or prosecute any alcohol or drug abuse patient.[facility] HospitalIn the event this information is protected by the Federal Confidentiality of Alcohol and Drug Abuse Patient Records regulations: The Federal rules restrict any use of the information to criminally investigate or prosecute any alcohol or drug abuse patient.[facility] HospitalIn the event this information is protected by the Federal Confidentiality of Alcohol and Drug Abuse Patient Records regulations: The Federal rules restrict any use of the information to criminally investigate or prosecute any alcohol or drug abuse patient.[facility] HospitalIn the event this information is protected by the Federal Confidentiality of Alcohol and Drug Abuse Patient Records regulations: The Federal rules restrict any use of the information to criminally investigate or prosecute any alcohol or drug abuse patient.[facility] HospitalIn the event this information is protected by the Federal Confidentiality of Alcohol and Drug Abuse Patient Records regulations: The Federal rules restrict any use of the information to criminally investigate or prosecute any alcohol or drug abuse patient.[facility] Reason for Visit (unrecogniz ed section [...] BE BASED ON THE PRIMARY CLINICAL RECORDS. [facility]. provides no warranty or guarantee of the accuracy or completeness of information in this document.
--- NOTE | 2025-07-12 07:54 | MRI_ITS ---
PROCEDURE: LOWER EXT/NO JT/W/O 07/12/2025 REASON FOR EXAM: RIGHT HAMSTRING INJURY TECHNIQUE: LOWER EXT/NO JT/W/O Multiplanar and multisequence images were obtained without IV contrast administration. COMPARISON: COMPARISON : None FINDINGS: Full-thickness tear of the conjoined semitendinosis and long head biceps femoris tendon at the ischial tuberosity attachment with retraction measuring up to 1.8 cm and superimposed tendinopathy. Near full- thickness tear of the semimembranosus tendon at the ischial tuberosity attachment with a few thin residual anterior fibers remaining attached. Remaining major tendons about the right hip are intact. No bursal fluid collections. Negative for fracture or marrow replacement. Low-level edema in the quadratus femoris which may be reactive. Musculature is otherwise within normal limits. Superficial soft tissues are within normal limits. Visualized pelvic contents are satisfactory. Near-complete tear of the left common hamstring tendon also noted. MRI/Lower Ext/No Jt/w/o IMPRESSION: 1. Essentially complete tear right common hamstring tendon at its ischial tuber osity attachment as above. 2. Near-complete tear of the left common hamstring tendon, partially visualized . Reading Location: [facility]
== END | disposition home or self-care (01) ==
LOC: MRI 07:44
PROVIDERS: PCP Internal Medicine; Referring Provider Internal Medicine; Visit Provider Internal Medicine
DX: S76.301A Unspecified injury of muscle, fascia and tendon of the posterior muscle group at thigh level, right thigh, initial encounter (principal)
CPT/HCPCS: 73718

== ENCOUNTER 2025-08-20 09:30 | Outpatient (RCR) | payer OTHER, MEDICARE, SELFPAY ==
--- NOTE | 2025-07-26 07:49 | HP.PTEVAL ---
Patient's Visit Information Visit Information Visit Information: HERMILO HE is a 69 year old F referred to Physical Therapy by Dr. Joey Rose, DO with a diagnosis of B strain thigh(hamstring R>L). Date of Evaluation: 07/26/25 Physical Therapist: Orestes Castellon, DPT, OCS, CSCS Visit Plan Frequency: 2x /Week Duration: 4-6 Weeks Plan: 2x/week for 3-6 weeks. IE HEP prone SLR 3x10, PKF 3x10, supine HS stretch 30" 5x all 2x/day and try to get back to painfree walking 1-2 miles without pain or limping. Avoid aggravating activities treat with MH and DTR to R HS origin and rollout to R HS, stretch B HS and piriformis, progression of HS and hip extension strngthening to gentle machines as tolerated to HEP then to tennis specific controlled activities. Ensure HEP going well including walking. May use ice if needed. Subjective Subjective: Goes by " D". Playing pickleball and went for a shot adn felt pull sharp in L HS then in R HS and that was a month ago. then walked a long way and then it got worse. L has gone away , Feels in R HS origin is intrmittent. Worse with sitting too long. Walking is not an issue. Saw Milton a few weeks later. MRI was ordered by Dr. Errol mcfarland. Had HS tears on both sides. Activities avoided: pickleball and tennis, used to play every Tuesday, may not go back to pickleball. Basic ADL all I and normal, steps normal Chasing cats without pain. Pain is with walking up and down steps. Sleep is not a problem with this. Afraid to walk, would normally go a fw miles with [employer] 2-3x/week. Pain R HS origin: Pain Intensity (Out of 10): 0 Pain Intensity Range: 0 and 2 Objective Objective: Walks into PT today without antalgia or pain. Trasnfer chair aand bed I without pain. toe walk, bending to touch floor and down steps causes some minor pain at R HS origin only. Tender to palpation in this same spot, not on L, Tightness present in B HS at -30 90/90 tests with some origin pain on R. knee flexion testing gives slight transient pain R origin of HS but fair strength 4/5, quad 4/5 B. hip abd and ext 4-/5 with some pain R HS origin with ext. ankles 4+/5 B. reflexes 1/3 B patella dn achilles sensation LE WNL to gross light touch. squatting deep also give slight discomfort in R HS origin. - CRISTEL, - OANHIR. Balance/Special Test Scores Lower Extremity Functional Score: 57 Goals Goal 1:: I appropriate HEP to limit future problems with pain Goal Time Frame: 4-6 Weeks Goal 2:: squat, steps, R legged stance floor touches without pain HS origin Goal Time Frame: 4-6 Weeks Goal 3:: plan to get back to tennis Goal Time Frame: 4-6 Weeks Goal 4:: walk 3 miles without pain in either leg Goal Time Frame: 4-6 Weeks Goal 5:: LEFS score 65 Goal Time Frame: 4-6 Weeks Rehabilitation Potential Physical Therapy Diagnosis: pain limiting funciton in R HS eeffecting QOL. Rehabilitation Potential: Good Anticipated Interventions Patient/Client Instruction: Educate patient on: Condition and Plan of Care For the Purpose of:: To decrease pain, To increase ROM, To improve nutrient delivery to tissue, To increase tolerance to activity/condition/position and To improve ability of physical actions for home/community/work/leisure Therapeutic Exercise to Include: Strength training, Flexibilty training, Passive ROM and Active ROM For the Purpose of:: To decrease pain, To decrease swelling/inflammation, To increase ROM and To improve nutrient delivery to tissue Manual Therapy Techniques to Include: Trigger point massage, Passive ROM and Soft tissue mobilization For the Purpose of:: To decrease pain, To improve nutrient delivery to tissue and To improve muscle performance and motor function Cryotherapy (ice pack, ice massage): Yes For the Purpose of:: To decrease pain, To decrease swelling/inflammation and To increase ROM Text: Thank you for the opportunity to evaluate your patient. For Medicare and Medicare HMO plans, please review the plan of care and approve it. It will need to be FAXED BACK to us at [phone] for Medicare purposes. For Medicare only, by signing this I certify the plan of care. Please let me know if there are questions or concerns regarding this plan of care. Physician Signature: Date:
--- NOTE | 2025-08-20 10:12 | HP.PTDCSUM ---
Discharge Summary D/C summary: It has been my pleasure to treat HERMILO HE referred by Dr. Joey Rose DO, with the diagnosis of B strain thigh(hamstring R>L) for a total of 8 visit(s). Discharge Date: 08/20/25 Please see the following information for a summary of their discharge status. Subjective Subjective: Walked 3.5 miles without paying , No problems squatting or stooping. No tennis or pickleball. Steps not painful. No f/u wiht Milton.Feels like she can wean slowly back to 6 mile walk and tennis on her own and continue HEP of streteches and strengthening. Pain R HS origin: Pain Intensity (Out of 10): 2 Overall Improvement % Improvement: 80 Objective Objective/Function: No tenderness in either HS today, 4+/5 strength B HS without pain. squat deep and steps without pain, SLS easily B without pain. Goals Goal 1:: I appropriate HEP to limit future problems with pain Goal Progress: Goal Met Goal 2:: squat, steps, R legged stance floor touches without pain HS origin Goal Progress: Goal Met Goal 3:: plan to get back to tennis Goal Progress: Goal Met Goal 4:: walk 3 miles without pain in either leg Goal Progress: Goal Met Goal 5:: LEFS score 65 Goal Progress: Goal Met Plan Plan: d/c to HEP adn waning back to activity slowly D/C Information Discharge Comments: pt to contact doctor if pain returns. d/c sentence: If there are questions or concerns regarding this patient's physical therapy, please feel free to call me at [phone]. Thank you for the referral of this patient. Sincerely, Orestes Castellon, DPT, OCS, CSCS Balance/Gait/Functional tests Balance/Special Test Scores Lower Extremity Functional Score: 75 Improvement % Improvement: 80
== END 2025-08-20 10:33 | disposition home or self-care (01) ==
LOC: PT 09:30
PROVIDERS: PCP Internal Medicine; Referring Provider Student in an Organized Health Care Education/Training Program; Visit Provider Student in an Organized Health Care Education/Training Program
DX: S76.311D Strain of muscle, fascia and tendon of the posterior muscle group at thigh level, right thigh, subsequent encounter (principal); S76.312D Strain of muscle, fascia and tendon of the posterior muscle group at thigh level, left thigh, subsequent encounter
CPT/HCPCS: 97110; 97140; 97161; 97530

== ENCOUNTER → 2025-09-27 | Outpatient (CLI) | payer OTHER, MEDICARE, SELFPAY ==
[2025-09-27 06:57] LABS: Hematocrit 40.9 % (37-47); Hemoglobin 13.7 g/dL (12.0-15.0); Immature Granulocytes Count 0.010 X10^3/uL (0.0-0.0); Mean Corp Hgb Conc 33.5 g/dL (32-36); Mean Corpuscular Volume 90.1 fL (81-99); Mean Platelet Vol. 8.9 fl (6.2-12.0); NRBC Flagged by Analyzer 0 % (0-5); Platelet Count 201 K/mm3 (150-450); RBC Distribution Width CV 12.3 % (11.6-14.6); RBC Distribution Width SD 40.9 fl (35.1-43.9); Red Blood Count 4.54 M/mm3 (4.2-5.4); White Blood Count 4.4 K/mm3 (4.4-11.0)
[2025-09-27 07:37] LABS: AST(SGOT) 27 U/L (<=31); Alanine Aminotransfer ALT/SGPT 21 U/L (<=34); Albumin, Serum 4.4 g/dL (3.4-4.8); Alkaline Phosphatase 69 U/L (35-104); Anion Gap 9 (5-15); BUN 18 mg/dL (4-19); BUN/Creat Ratio 23.3 RATIO (10-20); Calcium,Total 10.4 mg/dL (7.6-11.0); Carbon Dioxide 24.3 mmol/L (21.0-32.0); Chloride 106 mmol/L (98-108); Cholesterol 217 mg/dL (<=200); Globulin 3.0 g/dL (2.2-4.2); Glucose 98 mg/dL (70-99); Low Density Lipoprotein Calc. 121 mg/dL; Potassium 4.3 mmol/L (3.3-5.1); Triglycerides 48 mg/dL; Very Low Density Lipoprotein 10 mg/dL (5-40); Vitamin B12 1310 pg/mL (180-914); Vitamin D,25 Hydroxy 54.6 ng/mL (30-100); cholesterol:hdl ratio screen 2.49
[2025-09-27 07:42] LABS: FOLATES,SERUM (FOLIC ACID) 17.20 ng/mL (4.60-34.80)
== END | disposition home or self-care (01) ==
LOC: LAB 06:06
PROVIDERS: PCP Internal Medicine; Referring Provider Internal Medicine; Visit Provider Internal Medicine
DX: E78.5 Hyperlipidemia, unspecified (principal); F03.90 Unspecified dementia, unspecified severity, without behavioral disturbance, psychotic disturbance, mood disturbance, and anxiety; E55.9 Vitamin D deficiency, unspecified
CPT/HCPCS: 36415; 80053; 80061; 82306; 82607; 82746; 85025

== ENCOUNTER → 2025-10-02 | Outpatient (CLI) | payer OTHER, MEDICARE, SELFPAY ==
--- NOTE | 2025-10-02 14:58 | NEURO_ITS ---
NCS and/or EMG Patient Report
--- NOTE | 2025-10-02 14:58 | NEURO ---
NCS and/or EMG Patient Report Ordering Doctor: Angie Norton DATE OF SERVICE: 10/02/25 Erin presents with complaints of numbness and tingling in the right hand. Electrodiagnostic findings: Right median motor nerve demonstrates prolonged latency with normal amplitude and conduction velocity. Right ulnar motor response within normal limits. Borderline prolonged right median F?wave. Prolonged right median sensory latency at the wrist with reduced conduction velocity. Needle EMG testing was performed in the right upper limb. All muscles tested showed no evidence of denervation with normal motor unit action potentials. Electrodiagnostic impression: This is an abnormal study. 1. Electrodiagnostic findings suggestive of right sided median mononeuropathy. This consistent with a moderate right carpal tunnel syndrome. Multi Select Codes Neurology Neurology Interp Codes: 27960-63 Musc test done w/n test comp (interp) and 22094-12 Nrv cndj tst 5-6 studies (interp)
== END | disposition home or self-care (01) ==
LOC: PSN 14:18
PROVIDERS: PCP Internal Medicine; Referring Provider Internal Medicine; Visit Provider Internal Medicine
DX: R20.2 Paresthesia of skin (principal)
CPT/HCPCS: 95909